=== PATIENT | female | born 1980 | race Caucasian/White ===

== ENCOUNTER 2022-11-22 19:26 | Emergency (ER) | payer OTHER, SELFPAY ==
[2022-11-22 19:36] VITALS: BP 147/85; PULSE 65; O2SAT 98; BMI 29.5
--- NOTE | 2022-11-22 20:02 | ECG_ITS ---
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
--- NOTE | 2022-11-22 20:02 | XR_ITS ---
The [address] [address] Patient Name: SERGIO BERNARDO MRN: [id number] date: 1980 Sex: F Assigned Patient Location: ER Current Patient Location: ER Accession/Order Number: [id number] Exam Date: 11/22/2022 20:25 Report Date: 11/22/2022 20:51 At the request of: ANA PHAM Procedure: XR chest 1V EXAMINATION: XR chest 1V HISTORY: Chest pain COMPARISON: None. TECHNIQUE: Portable chest FINDINGS: The lung parenchyma is free of consolidation or infiltrate. No pneumothorax or pleural effusion. Left-sided cardiac pacemaker. The cardiac, mediastinal and hilar contours are normal. The visualized osseous structures exhibit no gross abnormality. IMPRESSION: No acute cardiopulmonary abnormality. Electronically authenticated by: ROGE HERZOG Date: 11/22/2022 20:51
--- NOTE | 2022-11-22 20:04 | ED_ITS ---
Documented by User: MONIKA Squires 11/22/22 21:00 HPI - General Adult General Chief complaint: Chest Pain Time Seen by Provider: 11/22/22 19:55 Source: patient Mode of arrival: walk-in Limitations: no limitations History of Present Illness HPI narrative: patient is a 42-year-old female with history of cardiomyopathy and pacemaker placement. 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 Patient states she has had several pacemakers with the most recent being changed on September 21. Patient states last night aroound 10 PM she felt a vibrating sensation from her pacemaker, happened again this morning at 10 AM and again at noon or 1 PM. Patient states she has felt fine during this time with no shortness of breath or chest pain or discomfort. This afternoon patient states she noticed a mild ache in her chest and decided to come in and get checked out but reports no significant changes with her ADLs. Patient sees Dr. Shin [facility]. States she had this happen once before with a bad lead connection. Related Data Home Medications Medication Instructions Recorded Confirmed alprazolam 1 mg tablet 1 mg PO .q6 PRN anxiety 11/22/22 11/22/22 amiodarone 100 mg tablet 100 mg PO DAILY 11/22/22 11/22/22 amitriptyline 25 mg tablet 25 mg PO BEDTIME 11/22/22 11/22/22 aspirin 81 mg tablet,delayed 81 mg PO DAILY 11/22/22 11/22/22 release (Adult Aspirin Regimen) atorvastatin 80 mg tablet 80 mg PO DAILY 11/22/22 11/22/22 carvedilol 6.25 mg tablet 6.25 mg PO Q12H 11/22/22 11/22/22 citalopram 20 mg tablet 20 mg PO DAILY 11/22/22 11/22/22 fluticasone propionate 50 intranasal 11/22/22 mcg/actuation nasal spray,suspension furosemide 20 mg tablet 20 mg PO DAILY 11/22/22 11/22/22 gabapentin 300 mg capsule 300 mg PO Q8H 11/22/22 11/22/22 losartan 25 mg tablet 25 mg PO DAILY 11/22/22 11/22/22 olanzapine 5 mg tablet 5 mg PO DAILY 11/22/22 11/22/22 pantoprazole 40 mg tablet,delayed 40 mg PO DAILY 11/22/22 11/22/22 release spironolactone 25 mg tablet 12.5 mg PO DAILY 11/22/22 11/22/22 topiramate 50 mg tablet 50 mg PO Q12H 11/22/22 11/22/22 Allergies Allergy/AdvReac Type Severity Reaction Status Date / Time amoxicillin Allergy Mild Rash Verified 11/22/22 19:49 cefoxitin Allergy Mild Rash Verified 11/22/22 19:49 Sulfa (Sulfonamide Allergy Mild Rash Verified 11/22/22 19:49 Antibiotics) vancomycin Allergy Unknown Verified 11/22/22 19:49 MADI Inhibitors AdvReac Mild Cough Verified 11/22/22 19:49 lisinopril AdvReac Mild Cough Verified 11/22/22 19:49 sulfamethoxazole AdvReac Mild rash Verified 11/22/22 19:49 [From Sulfamethoxazole-Trimethoprim] trimethoprim AdvReac Mild rash Verified 11/22/22 19:49 [From Sulfamethoxazole-Trimethoprim] Review of Systems ROS Constitutional Denies: fever or chills Eyes Denies: change in vision Ears, nose, mouth, and throat Denies: throat pain Cardiovascular Reports: chest pain (ache); Denies: palpitations Respiratory Denies: shortness of breath, cough, wheezing or chest congestion Gastrointestinal Denies: abdominal pain, nausea or vomiting Genitourinary Denies: painful urination or urinary frequency Musculoskeletal Denies: back pain, neck pain, extremity pain, extremity swelling or joint pain Integumentary/Breast Denies: rash or itching Neurological Denies: headache, numbness in extremities or weakness in extremities Psychiatric Denies: anxiety, mood swings or panic attacks Endocrine Denies: excessive urination Hematologic/Lymphatic Denies: easy bruising Allergic/Immunologic Denies: hives, throat swelling or tongue swelling PFSH PFSH Social History Smoking status: Current every day smoker Exam Narrative Exam Narrative: Nurses notes and vital signs reviewed and patient is not hypoxic. General: The patient appears well and in no apparent distress. Patient is resting comfortably on cart. Skin: Warm, dry, no pallor noted. Head: Normocephalic, atraumatic Neck: Supple, trachea mid-line, no tenderness, no lymphadenopathy Eye: Pupils are equal, round and reactive to light, EOMI Ears, Nose, Mouth, and Throat: TM are clear, normal light reflex, oral mucosa is moist, no posterior oropharynx erythema or hypertrophy, uvula is mid-line Cardiovascular: Regular Rate and Rhythm Respiratory: Patient is in no distress, no accessory muscle use, lungs are clear to auscultation, no wheezing, rales or rhonchi. Chest Wall: no tenderness Back: non-tender, no CVA tenderness Musculoskeletal: normal ROM, no tenderness, no swelling GI: Normal bowel sounds, no tenderness to palpation, no masses appreciated. No rebound, guarding, or rigidity noted. Neurological: A&O x4 Psychiatric: Cooperative Constitutional Vital Signs - 24 hr 11/22/22 19:36 11/22/22 20:24 11/22/22 21:21 Pulse Rate [Monitor] 65 58 L Respiratory Rate 18 Blood Pressure [Right Arm] 147/85 H 136/69 H Pulse Oximetry 98 96 95 Oxygen Delivery Method Room Air Room Air Room Air Course Vital Signs Vital signs: Vital Signs Pulse Rate 65 11/22/22 19:36 Blood Pressure 147/85 H 11/22/22 19:36 Pulse Oximetry 98 11/22/22 19:36 Oxygen Delivery Method Room Air 11/22/22 19:36 Pulse Rate 58 L 11/22/22 21:21 Respiratory Rate 18 11/22/22 21:21 Blood Pressure 136/69 H 11/22/22 21:21 Pulse Oximetry 95 11/22/22 21:21 Oxygen Delivery Method Room Air 11/22/22 21:21 Medical Decision Making MDM Narrative Medical decision making narrative: EKG shows paced rhythm [address] [place] device been activated to investigate patient's pacemaker, will check baseline labs and troponin given her complaint of ache, but patient admits she is mostly concerned of why her pacemaker is vibrating frequently....recently Changed September 21 of this year. spoke with Blake mo [place] at 8:50 PM.we discussed the patient's symptoms and presentation, concerns. Advised that he was going to contact the patient's medication administration professional and then phone us back with information Medical Records Medical records narrative: reviewed wrap up overview from interrogation today 11/22/2022 at 7:54 PM. Notes a patient notify her triggered on November 21 at 10:10 PM for RV oversensing. Lab Data Labs: Lab Results 11/22/22 Range/Units 20:00 WBC 4.1 (4.0-11.0) 10^3/uL RBC 4.29 (4.20-5.40) 10^6/uL Hgb 13.1 (12.0-16.0) g/dL Hct 37.1 (36.0-48.0) % MCV 86.5 (81.0-99.0) fL MCH 30.5 (26.7-34.0) pg MCHC 35.3 H (29.9-35.2) g/dL RDW 13.2 (11.0-15.0) % Plt Count 180 (150-450) 10^3/uL MPV 10.6 (9.5-13.5) fL Neut % (Auto) 65.7 (43.0-75.0) % Lymph % (Auto) 21.7 (20.5-60.0) % Band[place] % (Auto) 7.9 (1.7-12.0) % Eos % (Auto) 3.0 (0.9-7.0) % Baso % (Auto) 1.0 (0.2-2.0) % Neut # (Auto) 2.7 (1.4-6.5) 10^3/uL Lymph # (Auto) 0.9 L (1.2-3.8) 10^3/uL [place] # (Auto) 0.3 (0.3-0.8) 10^3/uL Eos # (Auto) 0.1 (0.0-0.7) 10^3/uL Baso # (Auto) 0.0 (0.0-0.1) 10^3/uL Sodium 137 (136-145) mmol/L Potassium 3.4 L (3.5-5.1) mmol/L Chloride 103 (98-107) mmol/L Carbon Dioxide 26.2 (21.0-32.0) mmol/L Anion Gap 11.2 BUN 7.0 (7.0-18.0) mg/dL Creatinine 0.87 (0.55-1.02) mg/dL Est GFR ( Amer) >60 (>=60) Est GFR (Non-Af Amer) >60 (>=60) BUN/Creatinine Ratio 8.0 Glucose 108 H (74-106) mg/dL Calcium 8.7 (8.5-10.1) mg/dL Troponin I High Sens 18.6 (4.0-51.3) pg/mL Discharge Plan Discharge Chief Complaint: Chest Pain Clinical Impression: Pacemaker lead malfunction Prescriptions / Home Meds: No Action citalopram 20 mg tablet 20 mg PO DAILY olanzapine 5 mg tablet 5 mg PO DAILY topiramate 50 mg tablet 50 mg PO Q12H fluticasone propionate 50 mcg/actuation spray,suspension INTRANASAL atorvastatin 80 mg tablet 80 mg PO DAILY amitriptyline 25 mg tablet 25 mg PO BEDTIME amiodarone 100 mg tablet 100 mg PO DAILY gabapentin 300 mg capsule 300 mg PO Q8H furosemide 20 mg tablet 20 mg PO DAILY alprazolam 1 mg tablet 1 mg PO .q6 PRN (Reason: anxiety) aspirin [Adult Aspirin Regimen] 81 mg tablet,delayed release (DR/EC) 81 mg PO DAILY carvedilol 6.25 mg tablet 6.25 mg PO Q12H losartan 25 mg tablet 25 mg PO DAILY pantoprazole 40 mg tablet,delayed release (DR/EC) 40 mg PO DAILY spironolactone 25 mg tablet 12.5 mg PO DAILY Instructions: Pacemaker (DC) Stand Alone Forms: Portal Instructions Referrals: Rock Robertson MD [Primary Care Provider] - 1 week Follow Up Appointments: Call Dr Radford office tomorrow as discussed to arrange for procedure involving your pacemaker Procedures ED Procedure Instructions Procedures Procedures: Procedure: XR chest 1V EXAMINATION: XR chest 1V HISTORY: Chest pain COMPARISON: None. TECHNIQUE: Portable chest FINDINGS: The lung parenchyma is free of consolidation or infiltrate. No pneumothorax or pleural effusion. Left-sided cardiac pacemaker. The cardiac, mediastinal and hilar contours are normal. The visualized osseous structures exhibit no gross abnormality. IMPRESSION: No acute cardiopulmonary abnormality. Electronically authenticated by: ROGE HERZOG Date: 11/22/2022 20:51 Documented by User: Saulo Calderon MD 11/22/22 21:42 HPI - General Adult General Chief complaint: Chest Pain Time Seen by Provider: 11/22/22 19:55 Related Data Home Medications Medication Instructions Recorded Confirmed alprazolam 1 mg tablet 1 mg PO .q6 PRN anxiety 11/22/22 11/22/22 amiodarone 100 mg tablet 100 mg PO DAILY 11/22/22 11/22/22 amitriptyline 25 mg tablet 25 mg PO BEDTIME 11/22/22 11/22/22 aspirin 81 mg tablet,delayed 81 mg PO DAILY 11/22/22 11/22/22 release (Adult Aspirin Regimen) atorvastatin 80 mg tablet 80 mg PO DAILY 11/22/22 11/22/22 carvedilol 6.25 mg tablet 6.25 mg PO Q12H 11/22/22 11/22/22 citalopram 20 mg tablet 20 mg PO DAILY 11/22/22 11/22/22 fluticasone propionate 50 intranasal 11/22/22 mcg/actuation nasal spray,suspension furosemide 20 mg tablet 20 mg PO DAILY 11/22/22 11/22/22 gabapentin 300 mg capsule 300 mg PO Q8H 11/22/22 11/22/22 losartan 25 mg tablet 25 mg PO DAILY 11/22/22 11/22/22 olanzapine 5 mg tablet 5 mg PO DAILY 11/22/22 11/22/22 pantoprazole 40 mg tablet,delayed 40 mg PO DAILY 11/22/22 11/22/22 release spironolactone 25 mg tablet 12.5 mg PO DAILY 11/22/22 11/22/22 topiramate 50 mg tablet 50 mg PO Q12H 11/22/22 11/22/22 Allergies Allergy/AdvReac Type Severity Reaction Status Date / Time amoxicillin Allergy Mild Rash Verified 11/22/22 19:49 cefoxitin Allergy Mild Rash Verified 11/22/22 19:49 Sulfa (Sulfonamide Allergy Mild Rash Verified 11/22/22 19:49 Antibiotics) vancomycin Allergy Unknown Verified 11/22/22 19:49 MADI Inhibitors AdvReac Mild Cough Verified 11/22/22 19:49 lisinopril AdvReac Mild Cough Verified 11/22/22 19:49 sulfamethoxazole AdvReac Mild rash Verified 11/22/22 19:49 [From Sulfamethoxazole-Trimethoprim] trimethoprim AdvReac Mild rash Verified 11/22/22 19:49 [From Sulfamethoxazole-Trimethoprim] PFSH PFSH Social History Smoking status: Current every day smoker Exam Constitutional Vital Signs - 24 hr 11/22/22 19:36 11/22/22 20:24 11/22/22 21:21 Pulse Rate [Monitor] 65 58 L Respiratory Rate 18 Blood Pressure [Right Arm] 147/85 H 136/69 H Pulse Oximetry 98 96 95 Oxygen Delivery Method Room Air Room Air Room Air Course Vital Signs Vital signs: Vital Signs Pulse Rate 65 11/22/22 19:36 Blood Pressure 147/85 H 11/22/22 19:36 Pulse Oximetry 98 11/22/22 19:36 Oxygen Delivery Method Room Air 11/22/22 19:36 Pulse Rate 58 L 11/22/22 21:21 Respiratory Rate 18 11/22/22 21:21 Blood Pressure 136/69 H 11/22/22 21:21 Pulse Oximetry 95 11/22/22 21:21 Oxygen Delivery Method Room Air 11/22/22 21:21 Medical Decision Making Lab Data Lab results narrative: Spoke to medication administration professional Dr Radford and he feels the patient can be hospitalized tonight for procedure on her pacemaker wire tomorrow or she can go home and he will make arrangements tomorrow for the procedure. Discussed wit the patient and she prefers to go home and proceed with treatment tomorrow. She does not want to be hospitalized tonight Labs: Lab Results 11/22/22 Range/Units 20:00 WBC 4.1 (4.0-11.0) 10^3/uL RBC 4.29 (4.20-5.40) 10^6/uL Hgb 13.1 (12.0-16.0) g/dL Hct 37.1 (36.0-48.0) % MCV 86.5 (81.0-99.0) fL MCH 30.5 (26.7-34.0) pg MCHC 35.3 H (29.9-35.2) g/dL RDW 13.2 (11.0-15.0) % Plt Count 180 (150-450) 10^3/uL MPV 10.6 (9.5-13.5) fL Neut % (Auto) 65.7 (43.0-75.0) % Lymph % (Auto) 21.7 (20.5-60.0) % Band[place] % (Auto) 7.9 (1.7-12.0) % Eos % (Auto) 3.0 (0.9-7.0) % Baso % (Auto) 1.0 (0.2-2.0) % Neut # (Auto) 2.7 (1.4-6.5) 10^3/uL Lymph # (Auto) 0.9 L (1.2-3.8) 10^3/uL [place] # (Auto) 0.3 (0.3-0.8) 10^3/uL Eos # (Auto) 0.1 (0.0-0.7) 10^3/uL Baso # (Auto) 0.0 (0.0-0.1) 10^3/uL Sodium 137 (136-145) mmol/L Potassium 3.4 L (3.5-5.1) mmol/L Chloride 103 (98-107) mmol/L Carbon Dioxide 26.2 (21.0-32.0) mmol/L Anion Gap 11.2 BUN 7.0 (7.0-18.0) mg/dL Creatinine 0.87 (0.55-1.02) mg/dL Est GFR ( Amer) >60 (>=60) Est GFR (Non-Af Amer) >60 (>=60) BUN/Creatinine Ratio 8.0 Glucose 108 H (74-106) mg/dL Calcium 8.7 (8.5-10.1) mg/dL Troponin I High Sens 18.6 (4.0-51.3) pg/mL Discharge Plan Discharge Chief Complaint: Chest Pain Clinical Impression: Pacemaker lead malfunction Prescriptions / Home Meds: No Action citalopram 20 mg tablet 20 mg PO DAILY olanzapine 5 mg tablet 5 mg PO DAILY topiramate 50 mg tablet 50 mg PO Q12H fluticasone propionate 50 mcg/actuation spray,suspension INTRANASAL atorvastatin 80 mg tablet 80 mg PO DAILY amitriptyline 25 mg tablet 25 mg PO BEDTIME amiodarone 100 mg tablet 100 mg PO DAILY gabapentin 300 mg capsule 300 mg PO Q8H furosemide 20 mg tablet 20 mg PO DAILY alprazolam 1 mg tablet 1 mg PO .q6 PRN (Reason: anxiety) aspirin [Adult Aspirin Regimen] 81 mg tablet,delayed release (DR/EC) 81 mg PO DAILY carvedilol 6.25 mg tablet 6.25 mg PO Q12H losartan 25 mg tablet 25 mg PO DAILY pantoprazole 40 mg tablet,delayed release (DR/EC) 40 mg PO DAILY spironolactone 25 mg tablet 12.5 mg PO DAILY Instructions: Pacemaker (DC) Stand Alone Forms: Portal Instructions Referrals: Rock Robertson MD [Primary Care Provider] - 1 week Follow Up Appointments: Call Dr Radford office tomorrow as discussed to arrange for procedure involving your pacemaker
[2022-11-22 20:13] VITALS: PULSE 66
--- NOTE | 2022-11-22 20:15 | PC.NURSE ---
Richar goss a pace maker defibrillator placed in September. Last night felt it vibrate and today again this time with some chest pressure
[2022-11-22 20:21] LABS: Eosinophils Absolute Auto 0.1 10^3/uL (0.0-0.7); Hematocrit 37.1 % (36.0-48.0); Hemoglobin 13.1 g/dL (12.0-16.0); Immature Granulocytes Abs Auto 0.03 10^3/uL (0.00-0.03); Immature Granulocytes Pct Auto 0.7 % (0.0-0.5); Lymphocytes Absolute Auto 0.9 10^3/uL (1.2-3.8); Lymphocytes Percent Auto 21.7 % (20.5-60.0); Mean Corpuscular HGB Conc 35.3 g/dL (29.9-35.2); Mean Corpuscular Hemoglobin 30.5 pg (26.7-34.0); Mean Corpuscular Volume 86.5 fL (81.0-99.0); Mean Platelet Volume 10.6 fL (9.5-13.5); Monocytes Absolute Auto 0.3 10^3/uL (0.3-0.8); Monocytes Percent Auto 7.9 % (1.7-12.0); Neutrophils Absolute Auto 2.7 10^3/uL (1.4-6.5); Neutrophils Percent Auto 65.7 % (43.0-75.0); Platelet Count 180 10^3/uL (150-450); Red Blood Count 4.29 10^6/uL (4.20-5.40); Red Cell Distribution Width 13.2 % (11.0-15.0); White Blood Count 4.1 10^3/uL (4.0-11.0)
[2022-11-22 20:24] VITALS: O2SAT 96
[2022-11-22 20:37] LABS: Anion Gap 11.2; Calcium 8.7 mg/dL (8.5-10.1); Carbon Dioxide 26.2 mmol/L (21.0-32.0); Chloride 103 mmol/L (98-107); Estimated GFR (African America >60 (>=60); Estimated GFR (Non-African Ame >60 (>=60); Glucose 108 mg/dL (74-106); Potassium 3.4 mmol/L (3.5-5.1); Sodium 137 mmol/L (136-145); Troponin I High Sensitivity 18.6 pg/mL (4.0-51.3)
[2022-11-22 21:21] VITALS: BP 136/69; PULSE 58; RESP 18; O2SAT 95
[2022-11-22 21:58] VITALS: BP 112/73; PULSE 60; RESP 16; O2SAT 97
== END 2022-11-22 21:57 | disposition home or self-care (01) ==
PROVIDERS: Personal Emergency Response Attendant; Emergency Provider Internal Medicine; PCP Family Medicine
DX: T82.119A Breakdown (mechanical) of unspecified cardiac electronic device, initial encounter (principal); I42.9 Cardiomyopathy, unspecified; Z79.82 Long term (current) use of aspirin; Z79.899 Other long term (current) drug therapy; F17.210 Nicotine dependence, cigarettes, uncomplicated
CPT/HCPCS: 36415; 71045; 80048; 84484; 85025; 93005; 99285

== ENCOUNTER 2022-11-24 12:45 | Emergency (ER) | payer OTHER, SELFPAY ==
[2022-11-24] VITALS (8 sets, daily range): BP systolic 103–174; BP diastolic 65–88; PULSE 60–78; RESP 16–26; TEMP 36.8; O2SAT 97; BMI 29.5
--- NOTE | 2022-11-24 12:55 | ECG_ITS ---
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
--- NOTE | 2022-11-24 12:57 | ECG_ITS ---
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
--- NOTE | 2022-11-24 13:22 | ED_ITS ---
HPI - General Adult General Chief complaint: Chest Pain Stated complaint: CHEST PAIN Time Seen by Provider: 11/24/22 13:09 Source: patient Mode of arrival: walk-in Limitations: no limitations History of Present Illness HPI narrative: this patient was here recently and was told to follow-up with her administrative project coordinator in [facility]. 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 When she was very young she had severe cardiomyopathy and has done pretty well. However her administrative project coordinator Dr. Hendrickson in [place] said that the lead for her defibrillator is broken and must be replaced. He would like her have that done at the [facility]. He has placed a referral but the patient has not heard from anyone at the [facility]. She really isn't having any chest pain or shortness of breath or medical symptomatology is just that she is not heard from anyone in [place] or [place] as far as making this TAKEN care of. She states her last ejection fraction is approximately forty-three percent. She states that she has never had a de fibrillation from this device.this document has been composed with a new electronic medical record and dried in voice recognition system. This document may not fully and accurately reflects the entirety of the patient encounter Related Data Home Medications Medication Instructions Recorded Confirmed alprazolam 1 mg tablet 1 mg PO .q6 PRN anxiety 11/22/22 11/24/22 amiodarone 100 mg tablet 100 mg PO DAILY 11/22/22 11/24/22 amitriptyline 25 mg tablet 25 mg PO BEDTIME 11/22/22 11/24/22 aspirin 81 mg tablet,delayed 81 mg PO DAILY 11/22/22 11/24/22 release (Adult Aspirin Regimen) atorvastatin 80 mg tablet 80 mg PO DAILY 11/22/22 11/24/22 carvedilol 6.25 mg tablet 6.25 mg PO Q12H 11/22/22 11/24/22 citalopram 20 mg tablet 20 mg PO DAILY 11/22/22 11/24/22 fluticasone propionate 50 1 spray intranasal Q12H 11/22/22 11/24/22 mcg/actuation nasal spray,suspension furosemide 20 mg tablet 20 mg PO DAILY 11/22/22 11/24/22 gabapentin 300 mg capsule 300 mg PO Q8H 11/22/22 11/24/22 losartan 25 mg tablet 25 mg PO DAILY 11/22/22 11/24/22 olanzapine 5 mg tablet 5 mg PO DAILY 11/22/22 11/24/22 pantoprazole 40 mg tablet,delayed 40 mg PO DAILY 11/22/22 11/24/22 release spironolactone 25 mg tablet 12.5 mg PO DAILY 11/22/22 11/24/22 topiramate 50 mg tablet 50 mg PO Q12H 11/22/22 11/24/22 wolahzldjz-vtmgsldgkdxop-akalwcqy 1 tab PO Q6H PRN pain 11/24/22 11/24/22 50 mg-325 mg-40 mg tablet Allergies Allergy/AdvReac Type Severity Reaction Status Date / Time amoxicillin Allergy Mild Rash Verified 11/22/22 19:49 cefoxitin Allergy Mild Rash Verified 11/22/22 19:49 Sulfa (Sulfonamide Allergy Mild Rash Verified 11/22/22 19:49 Antibiotics) vancomycin Allergy Unknown Verified 11/22/22 19:49 MADI Inhibitors AdvReac Mild Cough Verified 11/22/22 19:49 lisinopril AdvReac Mild Cough Verified 11/22/22 19:49 sulfamethoxazole AdvReac Mild rash Verified 11/22/22 19:49 [From Sulfamethoxazole-Trimethoprim] trimethoprim AdvReac Mild rash Verified 11/22/22 19:49 [From Sulfamethoxazole-Trimethoprim] [facility] Social History Smoking status: Current every day smoker Exam Narrative Exam Narrative: problem focus examination. Her vital signs are noted below are stable. Twelve- lead EKG is normal. I reviewed her laboratory testing from her previous recent Emergency Room visits to this facility. She does not appear ill basically she just trying to figure out which doctor to go to and when. Constitutional Vital Signs - 24 hr 11/24/22 12:51 11/24/22 12:55 11/24/22 12:56 Temperature 98.2 F Pulse Rate 76 74 Pulse Rate [Monitor] 78 Respiratory Rate 18 16 23 Blood Pressure Blood Pressure [Right Arm] 174/88 H Pulse Oximetry 97 Oxygen Delivery Method Room Air 11/24/22 12:57 11/24/22 13:00 11/24/22 13:15 Temperature Pulse Rate 73 67 63 Pulse Rate [Monitor] Respiratory Rate 18 26 H 20 Blood Pressure 110/72 109/65 104/67 Blood Pressure [Right Arm] Pulse Oximetry Oxygen Delivery Method 11/24/22 13:30 11/24/22 13:45 Temperature Pulse Rate 60 60 Pulse Rate [Monitor] Respiratory Rate 21 18 Blood Pressure 105/66 103/67 Blood Pressure [Right Arm] Pulse Oximetry Oxygen Delivery Method Common normals: no apparent distress Respiratory Common normals: normal respiratory effort and no retractions Course Vital Signs Vital signs: Vital Signs Temperature 98.2 F 11/24/22 12:51 Pulse Rate 78 11/24/22 12:51 Respiratory Rate 18 11/24/22 12:51 Blood Pressure 174/88 H 11/24/22 12:51 Pulse Oximetry 97 11/24/22 12:51 Oxygen Delivery Method Room Air 11/24/22 12:51 Temperature 98.2 F 11/24/22 12:51 Pulse Rate 60 11/24/22 13:45 Respiratory Rate 18 11/24/22 13:45 Blood Pressure 103/67 11/24/22 13:45 Pulse Oximetry 97 11/24/22 12:51 Oxygen Delivery Method Room Air 11/24/22 12:51 Medical Decision Making MDM Narrative Medical decision making narrative: patient remained on the monitor here for cardiac telemetry throughout her duration. We tried to contact her administrative project coordinator [facility] to find out who is to see her at the [facility]. Eventually we were able to track and information down, we contacted administrative project coordinator in [place] they have a scheduled date and time for her to see that physician. He do not believe there is emergency medical condition at this time that requires immediate transfer to that facility. This information was shared with the patient. Discharge Plan Discharge Chief Complaint: Chest Pain Clinical Impression: Pacemaker lead malfunction Patient Disposition: Home, Self-Care Time of Disposition Decision: 14:14 Prescriptions / Home Meds: No Action citalopram 20 mg tablet 20 mg PO DAILY olanzapine 5 mg tablet 5 mg PO DAILY topiramate 50 mg tablet 50 mg PO Q12H fluticasone propionate 50 mcg/actuation spray,suspension 1 spray INTRANASAL Q12H atorvastatin 80 mg tablet 80 mg PO DAILY amitriptyline 25 mg tablet 25 mg PO BEDTIME amiodarone 100 mg tablet 100 mg PO DAILY gabapentin 300 mg capsule 300 mg PO Q8H furosemide 20 mg tablet 20 mg PO DAILY alprazolam 1 mg tablet 1 mg PO .q6 PRN (Reason: anxiety) aspirin [Adult Aspirin Regimen] 81 mg tablet,delayed release (DR/EC) 81 mg PO DAILY carvedilol 6.25 mg tablet 6.25 mg PO Q12H losartan 25 mg tablet 25 mg PO DAILY pantoprazole 40 mg tablet,delayed release (DR/EC) 40 mg PO DAILY spironolactone 25 mg tablet 12.5 mg PO DAILY [id number]-[id number] 50-325-40 mg tablet 1 tab PO Q6H PRN (Reason: pain) Instructions: Pacemaker (DC) Additional Instructions: Appointment scheduled on December [address] Ch[facility]vez at [facility]. [phone] option 4 Stand Alone Forms: Portal Instructions Referrals: Rock Robertson MD [Primary Care Provider] - 1 week Discharge Date/Time: 11/24/22 14:25
== END 2022-11-24 14:25 | disposition home or self-care (01) ==
PROVIDERS: Emergency Provider Emergency Medicine Emergency Medical Services; PCP Family Medicine
DX: R07.9 Chest pain, unspecified (principal); Z95.810 Presence of automatic (implantable) cardiac defibrillator; Z79.82 Long term (current) use of aspirin; Z79.899 Other long term (current) drug therapy
CPT/HCPCS: 93005; 99283

== ENCOUNTER 2022-12-05 07:12 | Emergency (ER) | payer OTHER, SELFPAY ==
[2022-12-05 07:18] VITALS: BP 130/74; PULSE 73; RESP 20; TEMP 36.8; O2SAT 99; BMI 29.5
--- NOTE | 2022-12-05 07:19 | ECG_ITS ---
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
--- NOTE | 2022-12-05 07:19 | XR_ITS ---
The [address] [address] Patient Name: SERGIO BERNARDO MRN: [id number] date: 1980 Sex: F Assigned Patient Location: ER Current Patient Location: ER Accession/Order Number: [id number] Exam Date: 12/05/2022 07:51 Report Date: 12/05/2022 08:12 At the request of: FAZAL PARKER Procedure: XR chest 1V XR chest 1V CLINICAL: Pain. Defibrillator malfunction COMPARISON: No prior studies are available. TECHNIQUE: Single AP view of the chest. FINDINGS: Heart size is upper normal for technique. Multi lead left subclavian pacing device/defibrillator is present with leads grossly intact and stable in appearance. No airspace consolidation, discernible pneumothorax or pleural effusion is seen. Osseous structures appear intact. IMPRESSION: No acute cardiac or pulmonary findings. Electronically authenticated by: ROGE RITCHIE Date: 12/05/2022 08:12
--- NOTE | 2022-12-05 07:30 | ED_ITS ---
HPI - Chest Pain General Chief Complaint: Chest Pain Stated Complaint: DFIB WENT OFF Time Seen by Provider: 12/05/22 07:19 Source: patient Source comment: patient Mode of arrival: Wheelchair Limitations: no limitations History of Present Illness HPI narrative: patient here as she was at work today and felt fine prior to arrival. However her defibrillator shocked her once. She feels fine at this time. This is the 1st event with this current defibrillator at that she's received a shock. Prior to the event today nothing is differennt she felt great and was at work. Her meds have not changed. She's not been ill. She did not have any palpitations or lightheadedness. 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 MD complaint: Denies chest pain Related Data Home Medications Medication Instructions Recorded Confirmed alprazolam 1 mg tablet 1 mg PO .q6 PRN anxiety 11/22/22 11/24/22 amiodarone 100 mg tablet 100 mg PO DAILY 11/22/22 11/24/22 amitriptyline 25 mg tablet 25 mg PO BEDTIME 11/22/22 11/24/22 aspirin 81 mg tablet,delayed 81 mg PO DAILY 11/22/22 11/24/22 release (Adult Aspirin Regimen) atorvastatin 80 mg tablet 80 mg PO DAILY 11/22/22 11/24/22 carvedilol 6.25 mg tablet 6.25 mg PO Q12H 11/22/22 11/24/22 citalopram 20 mg tablet 20 mg PO DAILY 11/22/22 11/24/22 fluticasone propionate 50 1 spray intranasal Q12H 11/22/22 11/24/22 mcg/actuation nasal spray,suspension furosemide 20 mg tablet 20 mg PO DAILY 11/22/22 11/24/22 gabapentin 300 mg capsule 300 mg PO Q8H 11/22/22 11/24/22 losartan 25 mg tablet 25 mg PO DAILY 11/22/22 11/24/22 olanzapine 5 mg tablet 5 mg PO DAILY 11/22/22 11/24/22 pantoprazole 40 mg tablet,delayed 40 mg PO DAILY 11/22/22 11/24/22 release spironolactone 25 mg tablet 12.5 mg PO DAILY 11/22/22 11/24/22 topiramate 50 mg tablet 50 mg PO Q12H 11/22/22 11/24/22 nhqiuhnznf-wzrxffvvmxtpt-fnfohvzz 1 tab PO Q6H PRN pain 11/24/22 11/24/22 50 mg-325 mg-40 mg tablet Allergies Allergy/AdvReac Type Severity Reaction Status Date / Time amoxicillin Allergy Mild Rash Verified 11/22/22 19:49 cefoxitin Allergy Mild Rash Verified 11/22/22 19:49 Sulfa (Sulfonamide Allergy Mild Rash Verified 11/22/22 19:49 Antibiotics) vancomycin Allergy Unknown Verified 11/22/22 19:49 MADI Inhibitors AdvReac Mild Cough Verified 11/22/22 19:49 lisinopril AdvReac Mild Cough Verified 11/22/22 19:49 sulfamethoxazole AdvReac Mild rash Verified 11/22/22 19:49 [From Sulfamethoxazole-Trimethoprim] trimethoprim AdvReac Mild rash Verified 11/22/22 19:49 [From Sulfamethoxazole-Trimethoprim] [facility] Social History Smoking status: Current every day smoker Exam Narrative Exam Narrative: awake alert pleasant somewhat anxious because this the 1st event. Otherwise vitals as noted below Constitutional Vital Signs - 24 hr 12/05/22 07:18 Temperature 98.2 F Pulse Rate [Monitor] 73 Respiratory Rate 20 Blood Pressure [Right Arm] 130/74 H Pulse Oximetry 99 Oxygen Delivery Method Room Air [facility] Common normals: normocephalic Face and sinus: normal facial exam Chest Common normals: inspection of chest normal Respiratory Common normals: normal respiratory effort Effort & inspection: able to speak in complete sentences Auscultation: clear to auscultation bilaterally Cardio Common normals: no JVD, regular rate and regular rhythm Other: pacemaker seems to be sensing and pacing appropriately 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 EKG Course Vital Signs Vital signs: Vital Signs Temperature 98.2 F 12/05/22 07:18 Pulse Rate 73 12/05/22 07:18 Respiratory Rate 20 12/05/22 07:18 Blood Pressure 130/74 H 12/05/22 07:18 Pulse Oximetry 99 12/05/22 07:18 Oxygen Delivery Method Room Air 12/05/22 07:18 Temperature 98.2 F 12/05/22 07:18 Pulse Rate 73 12/05/22 07:18 Respiratory Rate 20 12/05/22 07:18 Blood Pressure 130/74 H 12/05/22 07:18 Pulse Oximetry 99 12/05/22 07:18 Oxygen Delivery Method Room Air 12/05/22 07:18 MDM - Chest Pain Lab Data Labs: Lab Results 12/05/22 Range/Units 07:28 WBC 4.2 (4.0-11.0) 10^3/uL RBC 4.90 (4.20-5.40) 10^6/uL Hgb 14.9 (12.0-16.0) g/dL Hct 41.8 (36.0-48.0) % MCV 85.3 (81.0-99.0) fL MCH 30.4 (26.7-34.0) pg MCHC 35.6 H (29.9-35.2) g/dL RDW 13.2 (11.0-15.0) % Plt Count 189 (150-450) 10^3/uL MPV 10.4 (9.5-13.5) fL Neut % (Auto) 75.5 H (43.0-75.0) % Lymph % (Auto) 12.9 L (20.5-60.0) % [place] % (Auto) 8.4 (1.7-12.0) % Eos % (Auto) 1.7 (0.9-7.0) % Baso % (Auto) 1.0 (0.2-2.0) % Neut # (Auto) 3.2 (1.4-6.5) 10^3/uL Lymph # (Auto) 0.5 L (1.2-3.8) 10^3/uL [place] # (Auto) 0.4 (0.3-0.8) 10^3/uL Eos # (Auto) 0.1 (0.0-0.7) 10^3/uL Baso # (Auto) 0.0 (0.0-0.1) 10^3/uL Abs Immat Gran (auto) 0.02 (0.00-0.03) 10^3/uL Imm/Tot Granulo (auto) 0.5 (0.0-0.5) % Sodium 137 (136-145) mmol/L Potassium 4.2 (3.5-5.1) mmol/L Chloride 103 (98-107) mmol/L Carbon Dioxide 25.6 (21.0-32.0) mmol/L Anion Gap 12.6 BUN 7.0 (7.0-18.0) mg/dL Creatinine 0.79 (0.55-1.02) mg/dL Est GFR ( Amer) >60 (>=60) Est GFR (Non-Af Amer) >60 (>=60) BUN/Creatinine Ratio 8.9 Glucose 88 (74-106) mg/dL Calcium 8.8 (8.5-10.1) mg/dL Troponin I High Sens 15.0 (4.0-51.3) pg/mL Discharge Plan Discharge Chief Complaint: Chest Pain Clinical Impression: Pacemaker lead malfunction Patient Disposition: Home, Self-Care Time of Disposition Decision: 10:59 Condition: Good Prescriptions / Home Meds: No Action citalopram 20 mg tablet 20 mg PO DAILY olanzapine 5 mg tablet 5 mg PO DAILY topiramate 50 mg tablet 50 mg PO Q12H fluticasone propionate 50 mcg/actuation spray,suspension 1 spray INTRANASAL Q12H atorvastatin 80 mg tablet 80 mg PO DAILY amitriptyline 25 mg tablet 25 mg PO BEDTIME amiodarone 100 mg tablet 100 mg PO DAILY gabapentin 300 mg capsule 300 mg PO Q8H furosemide 20 mg tablet 20 mg PO DAILY alprazolam 1 mg tablet 1 mg PO .q6 PRN (Reason: anxiety) aspirin [Adult Aspirin Regimen] 81 mg tablet,delayed release (DR/EC) 81 mg PO DAILY carvedilol 6.25 mg tablet 6.25 mg PO Q12H losartan 25 mg tablet 25 mg PO DAILY pantoprazole 40 mg tablet,delayed release (DR/EC) 40 mg PO DAILY spironolactone 25 mg tablet 12.5 mg PO DAILY vrnywynlkl-przatpdiqdacq-gvry 50-325-40 mg tablet 1 tab PO Q6H PRN (Reason: pain) Instructions: Chest Pain (ED), Pacemaker (DC) Stand Alone Forms: Portal Instructions Referrals: Rock Robertson MD [Primary Care Provider] - 1 week Discharge Date/Time: 12/05/22 11:09
--- NOTE | 2022-12-05 07:50 | PC.NURSE ---
Pt has a pacemaker -- has a known faulty lead isn't seeing [facility] cardiology until 12/11. Was at work and got zapped by defibrillator. states she's felt normal previously before the zap
--- NOTE | 2022-12-05 08:01 | PC.NURSE ---
Spoke with rep from she is going to come and deactivate pacer. Recommended putting the magnet on pt's pacer -- placed at this time. Dr Krishnamurthy at bedside. Denies any symptoms at this time
[2022-12-05 08:04] LABS: Eosinophils Absolute Auto 0.1 10^3/uL (0.0-0.7); Eosinophils Percent Auto 1.7 % (0.9-7.0); Hematocrit 41.8 % (36.0-48.0); Hemoglobin 14.9 g/dL (12.0-16.0); Immature Granulocytes Abs Auto 0.02 10^3/uL (0.00-0.03); Immature Granulocytes Pct Auto 0.5 % (0.0-0.5); Lymphocytes Absolute Auto 0.5 10^3/uL (1.2-3.8); Lymphocytes Percent Auto 12.9 % (20.5-60.0); Mean Corpuscular HGB Conc 35.6 g/dL (29.9-35.2); Mean Corpuscular Hemoglobin 30.4 pg (26.7-34.0); Mean Corpuscular Volume 85.3 fL (81.0-99.0); Mean Platelet Volume 10.4 fL (9.5-13.5); Monocytes Absolute Auto 0.4 10^3/uL (0.3-0.8); Monocytes Percent Auto 8.4 % (1.7-12.0); Neutrophils Absolute Auto 3.2 10^3/uL (1.4-6.5); Neutrophils Percent Auto 75.5 % (43.0-75.0); Platelet Count 189 10^3/uL (150-450); Red Cell Distribution Width 13.2 % (11.0-15.0); White Blood Count 4.2 10^3/uL (4.0-11.0)
[2022-12-05 08:24] LABS: Anion Gap 12.6; BUN Creatinine Ratio 8.9; Calcium 8.8 mg/dL (8.5-10.1); Carbon Dioxide 25.6 mmol/L (21.0-32.0); Chloride 103 mmol/L (98-107); Estimated GFR (African America >60 (>=60); Estimated GFR (Non-African Ame >60 (>=60); Glucose 88 mg/dL (74-106); Potassium 4.2 mmol/L (3.5-5.1); Sodium 137 mmol/L (136-145)
== END 2022-12-05 11:09 | disposition home or self-care (01) ==
PROVIDERS: Emergency Provider Emergency Medicine Emergency Medical Services; PCP Family Medicine
DX: T82.198A Other mechanical complication of other cardiac electronic device, initial encounter (principal); F17.210 Nicotine dependence, cigarettes, uncomplicated; Z79.82 Long term (current) use of aspirin; Z79.899 Other long term (current) drug therapy
CPT/HCPCS: 36415; 71045; 80048; 84484; 85025; 93005; 99285

== ENCOUNTER 2023-02-07 05:17 | Emergency (ER) | payer OTHER, SELFPAY ==
[2023-02-07 05:23] VITALS: BP 125/69; PULSE 69; RESP 16; TEMP 36.6; O2SAT 99; BMI 29.3
--- NOTE | 2023-02-07 05:26 | XR_ITS ---
The [address] [address] Patient Name: SERGIO BERNARDO MRN: [id number] date: 1980 Sex: F Assigned Patient Location: ED.MAIN Current Patient Location: ER Accession/Order Number: [id number] Exam Date: 02/07/2023 05:45 Report Date: 02/07/2023 06:43 At the request of: ELDER SILVA Procedure: XR ankle RT min 3V Exam: Radiographs: XR ankle RT min 3V Reason for exam: pain, swelling Comparison: None XR/XR ankle RT min 3V IMPRESSION: Right ankle soft tissue swelling. Right ankle is otherwise unremarkable. Electronically authenticated by: DANA RODRÍGUEZ Date: 02/07/2023 06:43
--- NOTE | 2023-02-07 05:26 | ED.GENADUL1 ---
HPI - General Adult General Chief complaint: Extremity Injury, Lower Stated complaint: lower extremity injury Time Seen by Provider: 02/07/23 05:26 History of Present Illness HPI narrative: pt presents to emergency department complaining of right ankle pain. Patient states she got up this morning, her foot down and as she started to bear weight her ankle twisted she heard a pop and then she noticed swelling. She states she is having pain with weightbearing since then. She denies any previous injury to the ankle. She denies any paresthesias, or weakness. She has not taking anything at home for the pain. Denies any other injury. Related Data Home Medications Medication Instructions Recorded Confirmed alprazolam 1 mg tablet 1 mg PO .q6 PRN anxiety 11/22/22 11/24/22 amiodarone 100 mg tablet 100 mg PO DAILY 11/22/22 11/24/22 amitriptyline 25 mg tablet 25 mg PO BEDTIME 11/22/22 11/24/22 aspirin 81 mg tablet,delayed 81 mg PO DAILY 11/22/22 11/24/22 release (Adult Aspirin Regimen) atorvastatin 80 mg tablet 80 mg PO DAILY 11/22/22 11/24/22 carvedilol 6.25 mg tablet 6.25 mg PO Q12H 11/22/22 11/24/22 citalopram 20 mg tablet 20 mg PO DAILY 11/22/22 11/24/22 fluticasone propionate 50 1 spray intranasal Q12H 11/22/22 11/24/22 mcg/actuation nasal spray,suspension furosemide 20 mg tablet 20 mg PO DAILY 11/22/22 11/24/22 gabapentin 300 mg capsule 300 mg PO Q8H 11/22/22 11/24/22 losartan 25 mg tablet 25 mg PO DAILY 11/22/22 11/24/22 olanzapine 5 mg tablet 5 mg PO DAILY 11/22/22 11/24/22 pantoprazole 40 mg tablet,delayed 40 mg PO DAILY 11/22/22 11/24/22 release spironolactone 25 mg tablet 12.5 mg PO DAILY 11/22/22 11/24/22 topiramate 50 mg tablet 50 mg PO Q12H 11/22/22 11/24/22 letswemdsq-xtylaokeqrxzo-owsqijxw 1 tab PO Q6H PRN pain 06/06/23 06/06/23 50 mg-325 mg-40 mg tablet Previous Rx's Medication Instructions Recorded ibuprofen 800 mg tablet 800 mg PO Q8H PRN pain #20 tabs 02/07/23 Allergies Allergy/AdvReac Type Severity Reaction Status Date / Time amoxicillin Allergy Mild Rash Verified 02/07/23 05:28 cefoxitin Allergy Mild Rash Verified 02/07/23 05:28 Sulfa (Sulfonamide Allergy Mild Rash Verified 02/07/23 05:28 Antibiotics) vancomycin Allergy Unknown Verified 02/07/23 05:28 FRANCISCO Inhibitors AdvReac Mild Cough Verified 02/07/23 05:28 lisinopril AdvReac Mild Cough Verified 02/07/23 05:28 sulfamethoxazole AdvReac Mild rash Verified 02/07/23 05:28 [From Sulfamethoxazole-Trimethoprim] trimethoprim AdvReac Mild rash Verified 02/07/23 05:28 [From Sulfamethoxazole-Trimethoprim] Review of Systems ROS Status of ROS 10 or more systems reviewed and unremarkable except as noted in history and below [facility] Social History Smoking status: Current every day smoker Exam Narrative Exam Narrative: Nurses notes and vital signs reviewed and patient is not hypoxic. General: Nontoxic, Well-appearing and in no apparent distress. Skin: Warm, dry, no pallor noted. No Rash Head: Normocephalic, atraumatic. Neck: Supple, non-tender. Eye: Pupils are equal, round and EOMI. No scleral icterus. Ears, Nose, Mouth, and Throat: TM clear, no posterior oropharynx erythema or nasal mucosal hypertrophy, uvula is mid-line Oral mucosa is moist Cardiovascular: Regular Rate and Rhythm without murmur, gallop or rub. Respiratory: No accessory muscle use or respiratory distress. Lungs are clear to auscultation, no wheezing, rales or rhonchi Chest Wall: no tenderness Back: No midline thoracic or lumbar vertebral tenderness. No CVA tenderness Musculoskeletal: Right ankle with edema noted anteriorly to the lateral malleolus. There is tenderness to palpation. No ecchymosis, erythema, or warmth. There is no pain at the base of the 5th. DTRs +2, tp+2, capillary refill is brisk. normal ROM, no calf or popliteal tenderness, No lower extremity edema, no calf pain GI: Abdomen is soft, non-distended. Normal bowel sounds. No masses appreciated. No tenderness to palpation. No rebound, guarding, or rigidity noted. Neurological: A&O x4. No cranial nerve dysfunction observed. No truncal ataxia. Moves all extremities. Sensation intact. Psychiatric: Cooperative and interactive. Normal mood and affect. Constitutional Vital Signs, click to edit/add: Last Vital Signs Temp 97.9 F 02/07/23 05:23 Pulse 69 02/07/23 05:23 Resp 16 02/07/23 05:23 BP 125/69 02/07/23 05:23 Pulse Ox 99 02/07/23 05:23 O2 Del Method Room Air 02/07/23 05:23 Course Vital Signs Vital signs: Vital Signs Temperature 97.9 F 02/07/23 05:23 Pulse Rate 69 02/07/23 05:23 Respiratory Rate 16 02/07/23 05:23 Blood Pressure 125/69 02/07/23 05:23 Pulse Oximetry 99 02/07/23 05:23 Oxygen Delivery Method Room Air 02/07/23 05:23 Temperature 97.9 F 02/07/23 05:23 Pulse Rate 69 02/07/23 05:23 Respiratory Rate 16 02/07/23 05:23 Blood Pressure 125/69 02/07/23 05:23 Pulse Oximetry 99 02/07/23 05:23 Oxygen Delivery Method Room Air 02/07/23 05:23 Medical Decision Making MDM Narrative Medical decision making narrative: Patient is given 1 dose of Motrin 800. X-ray was done. All results were discussed with patient. Francisco wrap applied. At this time the patient is without objective evidence of an acute process requiring hospitalization or inpatient management. The patient has remained hemodynamically stable. No additional indication for emergent studies at this time. I answered all questions. Discussed discharge instructions including standard anticipatory guidance and what should prompt a return to the emergency department, including if they get worse are not getting better or develops any new or concerning symptoms. I've given them specific time frame in which to follow-up, and who to follow-up with. The patient demonstrates understanding. Patient is nontoxic and stable for discharge with outpatient follow-up. This note was created with the assistance of a speech recognition program. Although the intention is to generate documents that actually reflects the content of the visit, no guarantees can be provided that every mistake has been identified and corrected by editing. Discharge Plan Discharge Chief Complaint: Extremity Injury, Lower Clinical Impression: Ankle sprain and strain Patient Disposition: Home, Self-Care Time of Disposition Decision: 05:41 Condition: Good Mode of Transportation: Private Vehicle Prescriptions / Home Meds: New ibuprofen 800 mg tablet 800 mg PO Q8H PRN (Reason: pain) Qty: 20 0RF No Action citalopram 20 mg tablet 20 mg PO DAILY olanzapine 5 mg tablet 5 mg PO DAILY topiramate 50 mg tablet 50 mg PO Q12H fluticasone propionate 50 mcg/actuation spray,suspension 1 spray INTRANASAL Q12H atorvastatin 80 mg tablet 80 mg PO DAILY amitriptyline 25 mg tablet 25 mg PO BEDTIME amiodarone 100 mg tablet 100 mg PO DAILY gabapentin 300 mg capsule 300 mg PO Q8H furosemide 20 mg tablet 20 mg PO DAILY alprazolam 1 mg tablet 1 mg PO .q6 PRN (Reason: anxiety) aspirin [Adult Aspirin Regimen] 81 mg tablet,delayed release (DR/EC) 81 mg PO DAILY carvedilol 6.25 mg tablet 6.25 mg PO Q12H losartan 25 mg tablet 25 mg PO DAILY pantoprazole 40 mg tablet,delayed release (DR/EC) 40 mg PO DAILY spironolactone 25 mg tablet 12.5 mg PO DAILY ypommginge-zhmfaxfsnwtfk-jfep 50-325-40 mg tablet 1 tab PO Q6H PRN (Reason: pain) Instructions: Ankle Sprain (ED) Stand Alone Forms: Portal Instructions Referrals: Rock Robertson MD [Primary Care Provider] - 1 week Discharge Date/Time: 02/07/23 06:35
--- NOTE | 2023-02-07 05:32 | PC.NURSE ---
patient states she woke up and tried to step out of bed, states when she stood up and put weight down she felt pop sensation to her right ankle. denies any other injury. denies any previous injury to ankle. swelling observed to outer aspect of right ankle. pulses and sensation remain intact.
[2023-02-07] MEDS: IBUPROFEN 400 MG TABLET 800 MG PO (06:01)
--- NOTE | 2023-02-07 06:44 | PC.NURSE ---
Francisco wrap,ankle stirrup placed. Circ intact prior to and after splinting. Provided with crutches is to follow up as directed.
== END 2023-02-07 06:35 | disposition home or self-care (01) ==
PROVIDERS: Emergency Provider Emergency Medicine; PCP Family Medicine
DX: S93.401A Sprain of unspecified ligament of right ankle, initial encounter (principal); S96.911A Strain of unspecified muscle and tendon at ankle and foot level, right foot, initial encounter; X50.1XXA Overexertion from prolonged static or awkward postures, initial encounter; Z79.82 Long term (current) use of aspirin; Z79.899 Other long term (current) drug therapy; F17.210 Nicotine dependence, cigarettes, uncomplicated
CPT/HCPCS: 73610; 99283

== ENCOUNTER 2023-05-08 09:09 | Emergency (ER) | payer SELFPAY ==
[2023-05-08] VITALS (10 sets, daily range): BP systolic 119–152; BP diastolic 73–95; PULSE 60–75; RESP 16–21; TEMP 36.6; O2SAT 90–100; BMI 29.5
--- NOTE | 2023-05-08 09:16 | ECG_ITS ---
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
--- NOTE | 2023-05-08 09:16 | XR_ITS ---
[address] [address] Patient Name: SERGIO BERNARDO MRN: [id number] date: 1980 Sex: F Assigned Patient Location: ER Current Patient Location: ED.MAIN Accession/Order Number: [id number] Exam Date: 05/08/2023 09:28 Report Date: 05/08/2023 10:05 At the request of: FRITZ CHOI Procedure: XR chest 1V EXAM: XR chest 1V HISTORY: CP COMPARISON: 12/05/2022 FINDINGS/IMPRESSION: 1. Lungs are clear . Left pacemaker/ICD with intact leads. 2. No pneumothorax. No pleural effusion. 3. Heart size and mediastinal contours are normal 4. No acute osseous abnormality. 5. Upper abdominal bowel gas pattern is nonspecific. Electronically authenticated by: TERRY HIGGINBOTHAM Date: 05/08/2023 10:05
--- NOTE | 2023-05-08 09:17 | ED_ITS ---
HPI - Chest Pain General Chief Complaint: Chest Pain Time Seen by Provider: 05/08/23 09:10 Source: patient Mode of arrival: ambulance Limitations: no limitations History of Present Illness HPI narrative: 42-year-old female presents for chest pain. She's had it continuously since 7 PM last night, about fourteen hours. It's on the left side of her chest. No unusual activity or injury. No fever or cough. No right-sided pain and she doesn't complain of radiation to the arm. She has a pacemaker due to dilated cardiomyopathy and the pacemaker was changed out earlier this year. Related Data Home Medications Medication Instructions Recorded Confirmed alprazolam 1 mg tablet 1 mg PO .q6 PRN anxiety 11/22/22 11/24/22 amiodarone 100 mg tablet 100 mg PO DAILY 11/22/22 11/24/22 amitriptyline 25 mg tablet 25 mg PO BEDTIME 11/22/22 11/24/22 aspirin 81 mg tablet,delayed 81 mg PO DAILY 11/22/22 11/24/22 release (Adult Aspirin Regimen) atorvastatin 80 mg tablet 80 mg PO DAILY 11/22/22 11/24/22 carvedilol 6.25 mg tablet 6.25 mg PO Q12H 11/22/22 11/24/22 citalopram 20 mg tablet 20 mg PO DAILY 11/22/22 11/24/22 fluticasone propionate 50 1 spray intranasal Q12H 11/22/22 11/24/22 mcg/actuation nasal spray,suspension furosemide 20 mg tablet 20 mg PO DAILY 11/22/22 11/24/22 gabapentin 300 mg capsule 300 mg PO Q8H 11/22/22 11/24/22 losartan 25 mg tablet 25 mg PO DAILY 11/22/22 11/24/22 olanzapine 5 mg tablet 5 mg PO DAILY 11/22/22 11/24/22 pantoprazole 40 mg tablet,delayed 40 mg PO DAILY 11/22/22 11/24/22 release spironolactone 25 mg tablet 12.5 mg PO DAILY 11/22/22 11/24/22 topiramate 50 mg tablet 50 mg PO Q12H 11/22/22 11/24/22 [id number]-[id number]-[id number] 1 tab PO Q6H PRN pain 11/24/22 11/24/22 50 mg-325 mg-40 mg tablet Previous Rx's Medication Instructions Recorded ibuprofen 800 mg tablet 800 mg PO Q8H PRN pain #20 tabs 02/07/23 Allergies Allergy/AdvReac Type Severity Reaction Status Date / Time amoxicillin Allergy Mild Rash Verified 02/07/23 05:28 cefoxitin Allergy Mild Rash Verified 02/07/23 05:28 Sulfa (Sulfonamide Allergy Mild Rash Verified 02/07/23 05:28 Antibiotics) vancomycin Allergy Unknown Verified 02/07/23 05:28 MADI Inhibitors AdvReac Mild Cough Verified 02/07/23 05:28 lisinopril AdvReac Mild Cough Verified 02/07/23 05:28 sulfamethoxazole AdvReac Mild rash Verified 02/07/23 05:28 [From Sulfamethoxazole-Trimethoprim] trimethoprim AdvReac Mild rash Verified 02/07/23 05:28 [From Sulfamethoxazole-Trimethoprim] Review of Systems ROS Narrative A ten point review of systems is negative except as noted above. PFSH PFSH Social History Smoking status: Current every day smoker Exam Narrative Exam Narrative: Nurses note and vital signs reviewed and patient is not hypoxic. General: The patient appears well and in no apparent distress. Patient is resting comfortably on cart. Skin: Warm, dry, no pallor noted. There is no rash noted. Head: Normocephalic, atraumatic Eye: Normal conjunctiva, no drainage Ears, Nose, Mouth, and Throat: oral mucosa is moist. Nares patent. Cardiovascular: Regular Rate and Rhythm Respiratory: Patient is in no distress, no accessory muscle use, lungs are clear to auscultation, no wheezing, rales or rhonchi Back: non-tender GI: Normal bowel sounds, no tenderness to palpation, no masses appreciated. No rebound, guarding, or rigidity noted. Musculoskeletal: The patient has no evidence of calf tenderness, no pitting edema, symmetrical pulses noted bilaterally Neurological: A&O, normal speech Psychiatric: Cooperative Constitutional Vital Signs, click to edit/add: Last Vital Signs Temp 97.8 F 05/08/23 09:10 Pulse 60 05/08/23 10:20 Resp 21 05/08/23 10:20 BP 119/73 05/08/23 10:16 Pulse Ox 100 05/08/23 10:20 O2 Del Method Room Air 05/08/23 09:10 Course Vital Signs Vital signs: Vital Signs Temperature 97.8 F 05/08/23 09:10 Pulse Rate 62 05/08/23 09:10 Respiratory Rate 18 05/08/23 09:10 Blood Pressure 152/95 H 05/08/23 09:10 Pulse Oximetry 100 05/08/23 09:10 Oxygen Delivery Method Room Air 05/08/23 09:10 Temperature 97.8 F 05/08/23 09:10 Pulse Rate 60 05/08/23 10:20 Respiratory Rate 21 05/08/23 10:20 Blood Pressure 119/73 05/08/23 10:16 Pulse Oximetry 100 05/08/23 10:20 Oxygen Delivery Method Room Air 05/08/23 09:10 MDM - Chest Pain MDM Narrative Medical decision making narrative: her workup including two troponins and CK is negative. she was given IV Toradol and feels improved and she is able to be discharged home. No evidence of acute coronary syndrome or pulmonary embolism. Treatment diagnosis and follow-up were discussed with the patient. Differential Diagnosis Differential diagnosis: Likely pneumothorax, unstable angina pectoris, atypical chest pain, st elevation myocardial infarction, costochondritis, chest pain and other (pulmonary embolism) Lab Data Attestation: I reviewed the patient's lab results. Labs: Lab Results 05/08/23 05/08/23 Range/Units 09:22 10:50 WBC 4.8 (4.0-11.0) 10^3/uL RBC 4.30 (4.20-5.40) 10^6/uL Hgb 13.2 (12.0-16.0) g/dL Hct 37.9 (36.0-48.0) % MCV 88.1 (81.0-99.0) fL MCH 30.7 (26.7-34.0) pg MCHC 34.8 (29.9-35.2) g/dL RDW 12.9 (11.0-15.0) % Plt Count 157 (150-450) 10^3/uL MPV 10.7 (9.5-13.5) fL Neut % (Auto) 72.5 (43.0-75.0) % Lymph % (Auto) 16.9 L (20.5-60.0) % [place] % (Auto) 8.4 (1.7-12.0) % Eos % (Auto) 1.0 (0.9-7.0) % Baso % (Auto) 0.8 (0.2-2.0) % Neut # (Auto) 3.5 (1.4-6.5) 10^3/uL Lymph # (Auto) 0.8 L (1.2-3.8) 10^3/uL [place] # (Auto) 0.4 (0.3-0.8) 10^3/uL Eos # (Auto) 0.1 (0.0-0.7) 10^3/uL Baso # (Auto) 0.0 (0.0-0.1) 10^3/uL Abs Immat Gran (auto) 0.02 (0.00-0.03) 10^3/uL Imm/Tot Granulo (auto) 0.4 (0.0-0.5) % Sodium 139 (136-145) mmol/L Potassium 3.7 (3.5-5.1) mmol/L Chloride 105 (98-107) mmol/L Carbon Dioxide 25.4 (21.0-32.0) mmol/L Anion Gap 12.3 BUN 8.0 (7.0-18.0) mg/dL Creatinine 0.86 (0.55-1.02) mg/dL Est GFR ( Amer) >60 (>=60) Est GFR (Non-Af Amer) >60 (>=60) BUN/Creatinine Ratio 9.3 Glucose 92 (74-106) mg/dL Calcium 8.6 (8.5-10.1) mg/dL Troponin I High Sens 15.1 20.4 (4.0-51.3) pg/mL Imaging Data CT scan - chest: Radiologist's impression: Procedure: CT angio chest EXAM: CT angio chest HISTORY: chest pain, history of pulmonary embolism PROCEDURE: CT angio chest DATE: 05/08/2023 9:08 AM MANAGER CLINICAL INFORMATICS COMPARISONS: 09/24/2022. CLINICAL INDICATION: 42 years Female chest pain, history of pulmonary embolism TECHNIQUE: Axial images were obtained. Coronal and sagittal reformations were created. Multiplanar MIP reconstructions and 3D volume-rendered surface shaded reconstructions were created by the cytotechnologist supervisor to aid in evaluation of the vasculature. Individualized dose optimization technique was used for the procedure performed. CONTRAST: 100 cc Omnipaque 350 contrast FINDINGS: The thoracic aorta is normal in caliber with no evidence of aneurysm or dissection. The heart is mild to moderately prominent. This is stable from previous exam of 09/24/2022. Electronic cardiac device is in place. There is no significant pericardial effusion or pericardial thickening. There is no mediastinal masses or adenopathy. There is no axillary adenopathy. There are no evidence of filling defects within the pulmonary arteries to suggest pulmonary emboli. The lungs are essentially clear without evidence of nodule, mass, or infiltrate. There is no evidence of pleural effusion or pneumothorax. No significant abnormalities are identified of the visualized osseous structures. No significant abnormalities are identified of the visualized portion of the upper abdomen. IMPRESSION: 1. Stable cardiomegaly 2. No evidence of pulmonary embolism 3. No other significant abnormalities identified. Electronically authenticated by: MATHEW GUTIERREZ Date: 05/08/2023 11:15 Procedure: XR chest 1V EXAM: XR chest 1V HISTORY: CP COMPARISON: 12/05/2022 FINDINGS/IMPRESSION: 1. Lungs are clear . Left pacemaker/ICD with intact leads. 2. No pneumothorax. No pleural effusion. 3. Heart size and mediastinal contours are normal 4. No acute osseous abnormality. 5. Upper abdominal bowel gas pattern is nonspecific. Electronically authenticated by: TERRY HIGGINBOTHAM Date: 05/08/2023 10:05 ECG Data Attestation: I personally reviewed and interpreted this ECG as follows: (EKG on my interpretation shows paced rhythm) Heart Score History: Slightly/Non-Suspicious ECG: Normal Age: <45 years Risk Factors: 1 or 2 Risk Factors Troponin: <Normal Limit Total Heart Score Recommendations & Risks:: 1 Discharge Plan Discharge Chief Complaint: Chest Pain Clinical Impression: Chest pain Patient Disposition: Home, Self-Care Time of Disposition Decision: 11:43 Condition: Good Mode of Transportation: Private Vehicle Prescriptions / Home Meds: No Action citalopram 20 mg tablet 20 mg PO DAILY olanzapine 5 mg tablet 5 mg PO DAILY topiramate 50 mg tablet 50 mg PO Q12H fluticasone propionate 50 mcg/actuation spray,suspension 1 spray INTRANASAL Q12H atorvastatin 80 mg tablet 80 mg PO DAILY amitriptyline 25 mg tablet 25 mg PO BEDTIME amiodarone 100 mg tablet 100 mg PO DAILY gabapentin 300 mg capsule 300 mg PO Q8H furosemide 20 mg tablet 20 mg PO DAILY alprazolam 1 mg tablet 1 mg PO .q6 PRN (Reason: anxiety) aspirin [Adult Aspirin Regimen] 81 mg tablet,delayed release (DR/EC) 81 mg PO DAILY carvedilol 6.25 mg tablet 6.25 mg PO Q12H losartan 25 mg tablet 25 mg PO DAILY pantoprazole 40 mg tablet,delayed release (DR/EC) 40 mg PO DAILY spironolactone 25 mg tablet 12.5 mg PO DAILY [id number]-irijjajndbgif-[id number] 50-325-40 mg tablet 1 tab PO Q6H PRN (Reason: pain) ibuprofen 800 mg tablet 800 mg PO Q8H PRN (Reason: pain) Qty: 20 0RF Instructions: Chest Pain (ED) Stand Alone Forms: Portal Instructions Referrals: Rock Robertson MD [Primary Care Provider] - 1 week
[2023-05-08 09:29] LABS: Basophils Percent Auto 0.8 % (0.2-2.0); Eosinophils Absolute Auto 0.1 10^3/uL (0.0-0.7); Hematocrit 37.9 % (36.0-48.0); Hemoglobin 13.2 g/dL (12.0-16.0); Immature Granulocytes Abs Auto 0.02 10^3/uL (0.00-0.03); Immature Granulocytes Pct Auto 0.4 % (0.0-0.5); Lymphocytes Absolute Auto 0.8 10^3/uL (1.2-3.8); Lymphocytes Percent Auto 16.9 % (20.5-60.0); Mean Corpuscular HGB Conc 34.8 g/dL (29.9-35.2); Mean Corpuscular Hemoglobin 30.7 pg (26.7-34.0); Mean Corpuscular Volume 88.1 fL (81.0-99.0); Mean Platelet Volume 10.7 fL (9.5-13.5); Monocytes Absolute Auto 0.4 10^3/uL (0.3-0.8); Monocytes Percent Auto 8.4 % (1.7-12.0); Neutrophils Absolute Auto 3.5 10^3/uL (1.4-6.5); Neutrophils Percent Auto 72.5 % (43.0-75.0); Platelet Count 157 10^3/uL (150-450); Red Cell Distribution Width 12.9 % (11.0-15.0); White Blood Count 4.8 10^3/uL (4.0-11.0)
[2023-05-08 09:45] LABS: Anion Gap 12.3; BUN Creatinine Ratio 9.3; Calcium 8.6 mg/dL (8.5-10.1); Carbon Dioxide 25.4 mmol/L (21.0-32.0); Chloride 105 mmol/L (98-107); Estimated GFR (African America >60 (>=60); Estimated GFR (Non-African Ame >60 (>=60); Glucose 92 mg/dL (74-106); Potassium 3.7 mmol/L (3.5-5.1); Sodium 139 mmol/L (136-145); Troponin I High Sensitivity 15.1 pg/mL (4.0-51.3)
--- NOTE | 2023-05-08 09:52 | CT_ITS ---
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 CLINICAL INDICATION: 42 years Female chest pain, history of pulmonary embolism TECHNIQUE: Axial images were obtained. Coronal and sagittal reformations were created. Multiplanar MIP reconstructions and 3D volume-rendered surface shaded reconstructions were created by the mining engineering technologist to aid in evaluation of the vasculature. Individualized dose optimization technique was used for the procedure performed. CONTRAST: 100 cc Omnipaque 350 contrast FINDINGS: The thoracic aorta is normal in caliber with no evidence of aneurysm or dissection. The heart is mild to moderately prominent. This is stable from previous exam of 09/24/2022. Electronic cardiac device is in place. There is no significant pericardial effusion or pericardial thickening. There is no mediastinal masses or adenopathy. There is no axillary adenopathy. There are no evidence of filling defects within the pulmonary arteries to suggest pulmonary emboli. The lungs are essentially clear without evidence of nodule, mass, or infiltrate. There is no evidence of pleural effusion or pneumothorax. No significant abnormalities are identified of the visualized osseous structures. No significant abnormalities are identified of the visualized portion of the upper abdomen. CT/CT angio chest IMPRESSION: 1. Stable cardiomegaly 2. No evidence of pulmonary embolism 3. No other significant abnormalities identified. Electronically authenticated by: MATHEW GUTIERREZ Date: 05/08/2023 11:15
[2023-05-08 11:19] LABS: Troponin I High Sensitivity 20.4 pg/mL (4.0-51.3)
[2023-05-08] MEDS: KETOROLAC TROMETHAMINE 30 MG/ML VIAL IVP (11:34)
== END 2023-05-08 11:52 | disposition home or self-care (01) ==
PROVIDERS: Emergency Provider Emergency Medicine; PCP Family Medicine
DX: R07.9 Chest pain, unspecified (principal); Z95.0 Presence of cardiac pacemaker; I42.0 Dilated cardiomyopathy; Z79.82 Long term (current) use of aspirin; Z79.899 Other long term (current) drug therapy; F17.210 Nicotine dependence, cigarettes, uncomplicated
CPT/HCPCS: 36415; 71045; 71275; 80048; 84484; 85025; 93005; 96374; 99285; Q9967

== ENCOUNTER 2024-07-15 08:58 | Emergency (ER) | payer SELFPAY ==
[2024-07-15 09:01] VITALS: BP 132/83; PULSE 67; TEMP 37; O2SAT 99; BMI 32.5
--- OUTSIDE RECORDS SUMMARY | 2024-07-15 09:05 | XMS_ITS | CCD ---
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 mL/min/1.73m??? Normal >=60 [facility] Comment on above: Order Comment: Speci men Type: BLOOD SPECIMENOrdering Facility: [facility] Address: [address] [place] [address] Result Comment: Suzette mated Glomerular Filtration Rate (eGFR) is calculated using the 2020 CKD-EPI creatinine equation. This equation utilizes serum creatinine, sex, and age as parameters. The creatinine assay has traceable calibration to isotope dilution-mass spectrometry. Refer to KDIGO guidelines for clinical interpretation. In patients with unstable renal function, e.g. those with acute kidney injury, the eGFR may not accurately reflect actual GFR. Performed By: #### 2 4321-2 ####[facility] LABCLIA [id number] [place] [address] [place] Glucose [Mass/Vol] 98 mg/dL Normal 74-99 [facility] Comment on above: Order Comment: Speci men Type: BLOOD SPECIMENOrdering Facility: [facility] Address: [address] [place] [address] Result Comment: The [place] Diabetes Association (ADA) provides guidance for cutoff values for fasting glucose and random glucose. The ADA defines fasting as no caloric intake for at least 8 hours. Fasting plasma glucose results between 100 to 125 mg/dL indicate increased risk for diabetes (prediabetes). Fasting plasma glucose results greater than or equal to 126 mg/dL meet the criteria for diagnosis of diabetes. In the absence of unequivocal hyperglycemia, results should be confirmed by repeat testing. In a patient with classic symptoms of hyperglycemia or hyperglycemic crisis, random plasma glucose results greater than or equal to 200 mg/dL meet the criteria for diagnosis of diabetes. Reference: Standards of Medical Care in Diabetes 2016, [place] [employer]. Diabetes Care. 2016.39(Suppl 1). Performed By: #### 2 4321-2 ####[facility] LABCLIA [id number] [place] [address] [place] Potassium [Moles/Vol] 4.3 mmol/L Normal 3.7-5.1 [facility] Comment on above: Order Comment: Speci men Type: BLOOD SPECIMENOrdering Facility: [facility] Address: [address] [place] [address] Performed By: #### 2 4321-2 ####[facility] LABCLIA [id number] [place] [address] [place] Sodium [Moles/Vol] 138 mmol/L Normal 136-144 [facility] Comment on above: Order Comment: Speci men Type: BLOOD SPECIMENOrdering Facility: [facility] Address: [address] [place] [address] Performed By: #### 2 4321-2 ####[facility] LABCLIA [id number] [place] [address] [place] Urea nitrogen [Mass/Vol] 8 mg/dL Normal 7-21 [facility] Comment on above: Order Comment: Speci men Type: BLOOD SPECIMENOrdering Facility: [facility] Address: [address] [place] [address] Performed By: #### 2 4321-2 ####[facility] LABCLIA [id number] [place] [address] [place] CBC panel Auto (Bld)on 01-02 Erythrocyte distribution width (RBC) [Ratio] 12.8 % Normal 11.5-15.0 [facility] Comment on above: Order Comment: Speci men Type: BLOOD SPECIMENOrdering Facility: [facility] Address: [address] [place] [address] Performed By: #### 5 8410-2 ####[facility] LABIA [id number] [address] [place] Hematocrit (Bld) [Volume fraction] 37.4 % Normal 36.0-46.0 [facility] Comment on above: Order Comment: Speci men Type: BLOOD SPECIMENOrdering Facility: [facility] Address: [address] [place] [address] Performed By: #### 5 8410-2 ####[facility] LABCLIA [id number] [place] [address] [place] Hemoglobin (Bld) [Mass/Vol] 13.0 g/dL Normal 11.5-15.5 [facility] Comment on above: Order Comment: Speci men Type: BLOOD SPECIMENOrdering Facility: [facility] Address: [address] [place], [place] [address] Performed By: #### 5 8410-2 ####[facility] LABCLIA [id number] [place] [address] [place] MCH (RBC) [Entitic mass] 30.2 pg Normal 26.0-34.0 [facility] Comment on above: Order Comment: Speci men Type: BLOOD SPECIMENOrdering Facility: [facility] Address: [address] Performed By: #### 5 8410-2 ####[facility] [id number] [address] [place] [facility] MCHC (RBC) [Mass/Vol] 34.8 g/dL Normal 30.5-36.0 [facility] Comment on above: Order Comment: Speci men Type: BLOOD SPECIMENOrdering Facility: [facility] Address: [address] Performed By: #### 5 8410-2 ####[facility] [id number] [address] [place] MCV (RBC) [Entitic vol] 86.8 fL Normal 80.0-100.0 [facility] Comment on above: Order Comment: Speci men Type: BLOOD SPECIMENOrdering Facility: [facility] Address: [address] Performed By: #### 5 8410-2 ####[facility] [id number] [place] [address] [place] Nucleated RBC (Bld) [#/Vol] 10*3/uL Normal <0.01 [facility] Comment on above: Order Comment: Speci men Type: BLOOD SPECIMENOrdering Facility: [facility] Address: [address] [place], [place] [address] Performed By: #### 5 8410-2 ####[facility] LABSOU[facility] [id number] [place] [address] [place] Platelet mean volume (Bld) [Entitic vol] 11.1 fL Normal 9.0-12.7 [facility] Comment on above: Order Comment: Speci men Type: BLOOD SPECIMENOrdering Facility: [facility] Address: [address] [place], [place] [address] Performed By: #### 5 8410-2 ####[facility] [id number] [place] [address] [place] Platelets (Bld) [#/Vol] 146 10*3/uL Low 150-400 [facility] Comment on above: Order Comment: Speci men Type: BLOOD SPECIMENOrdering Facility: [facility] Address: [address] [place] [address] Performed By: #### 5 8410-2 ####[facility] [id number] [place] [address] [place] RBC (Bld) [#/Vol] 4.31 10*6/uL Normal 3.90-5.20 [facility] Comment on above: Order Comment: Speci men Type: BLOOD SPECIMENOrdering Facility: [facility] Address: [address] [place] [address] Performed By: #### 5 8410-2 ####[facility] [id number] [address] [place] WBC (Bld) [#/Vol] 8.88 10*3/uL Normal 3.70-11.00 [facility] Comment on above: Order Comment: Speci men Type: BLOOD SPECIMENOrdering Facility: [facility] Address: [address] [place] [address] Performed By: #### 5 8410-2 ####[facility] [id number] [address] [place] ECG COMPLETEon 01-02-2023 ECG COMPLETE Ventricular Rate : 6 0 BPM Atrial Rate : 60 BPM P-R Interval : 136 ms QRS Duration : 182 ms Q-T Interval : 500 ms QTC Calculation(Bazett) : 500 ms Calculated P Bimble : 89 degrees Calculated R Bimble : -137 degrees Calculated T Bimble : 23 degrees AV DUAL-PACED RHYTHM BIVENTRICULAR PACEMAKER DETECTED ABNORMAL ECG Confirmed by HONG SHAFER MD ([id number]) on 01/05/2023 2:14:49 PM NAME : CARITO RIOS PID : [id number] : 1980 Gender : Female Race : ORD : [id number] Procedure Date : Jan 02 2023 06:11:19 Edit Date : Jan 05 2023 14:14:52 Diagnosis: AV DUAL-PACED RHYTHM BIVENTRICULAR PACEMAKER DETECTED ABNORMAL ECG Confirmed by HONG SHAFER MD ([id number]) on 01/05/2023 2:14:49 PM Test Reason : Post-OP Location : 361 : J61 [id number] Overread By : HONG SHAFER MD Edited By : HONG SHAFER MD Referred By : , Acquired by : LACEY TOM [facility] XR CHEST 2V FRONTAL/LATon XR CHEST 2V FRONTAL/LAT * * *Final Report* * * DATE OF EXAM: Jan 02 2023 9:36AM JIX [id number] - XR CHEST 2V FRONTAL/LAT / PROCEDURE REASON: Post-operative / post-procedure assessment, asymptomatic * * * * Physician Interpretation * * * * EXAMINATION: CHEST RADIOGRAPH (2 VIEW FRONTAL and LATERAL) CLINICAL HISTORY: Post-operative / post-procedure assessment, asymptomatic MQ: [id number] EXAM DATE/TIME: 01/02/2023 9:36 AM COMPARISON: Chest radiograph dated 12/30/2022 RESULT: Lines, tubes, and devices: A left-sided hybrid ICD is present with leads terminating in expected positions of the right atrium and right ventricle with epicardial leads along the left heart border. The right atrial lead has probably been exchanged in the interval. Lungs and pleura: No pleural effusion. No consolidation. No pulmonary edema. No pneumothorax identified. Cardiomediastinal silhouette: Stable cardiomediastinal silhouette. Bones and soft tissues: Unremarkable. IMPRESSION: See result. Strain Technician: PSCB Transcribe Date/Time: Jan 02 2023 10:41A Dictated by : CLIF ROTHMAN MD This examination was interpreted and the report reviewed and electronically signed by: CLIF ROTHMAN MD on Jan 02 2023 10:45AM EST [id number] Normal [facility] ANES POSTPROC EVALon 023 ANES POSTPROC EVAL HNO ID: [id number] Author: Vikki Pretty DO Service: ? Author Type: Anesthesiologist Type: Anesthesia Postprocedure Evaluation Filed: 01/01/2023 7:58 PM Note Text: POST ANESTHESIA EVALUATION NOTE : 1980 Procedure Summary Date: 01/01/23 Room / Location: [address] AND VAS Anesthesia Start: 1256 Anesthesia Stop: 1926 Procedures: REMOVAL ELECTRODE(S) IMPLANTABLE DEFIBRILLATOR TRANSVENOUS EXTRACTION PIPE FITTER SOFT COPPER PACEMAKER SINGLE Diagnosis: Chronic systolic CHF (congestive heart failure) (HCC) NICM (nonischemic cardiomyopathy) (HCC) Other mechanical complication of cardiac electrode, initial encounter (Chronic systolic CHF (congestive heart failure) (HCC) [I50.22]) (NICM (nonischemic cardiomyopathy) (HCC) [I42.8]) (Other mechanical complication of cardiac electrode, initial encounter [T82.190A]) Surgeons: Darling Martinez MD Responsible Provider: Carito Franco MD Anesthesia Type: general ASA Status: 3 Anesthesia Type: general Airway Type: ETT Last Vitals Vitals Value Taken Time BP 123/56 (81) 01/01/231956 Temp 36.9 01/01/231956 Pulse 60 01/01/231955 Resp 16 01/01/231955 SpO2 99 % 01/01/231955 Vitals shown include unvalidated device data. Post Anesthesia Patient Status Patient Evaluation: PACU. PACU/ICU Patient Condition: stable. Anticipated Disposition: inpatient floor planned admission. Neurological Status: sleepy but arousable. Pulmonary Status: breathing comfortably on supplemental oxygen Airway Control: returned to baseline unsupported. Cardiovascular Status: stable. Pain Management: inadequate with additional pain medication ordered/administered. Postoperative Hydration: acceptable. Intraoperative Events: no significant anesthesia events Post Operative Nausea/Vomiting Status: no significant post operative nausea or vomiting Recommendation: continue current plan of care and further care per PACU/ICU/floor team. Anesthesia Observations No Documentation SIGNATURE: Vikki Pretty DO PATIENT NAME: Carito Rios DATE: January 01, 2023 TIME: 7:57 PM CSN: [id number] Normal [facility] ANES PRE-OPon 01-01-2023 ANES PRE-OP HNO ID: [id number] Author: Jama Wilson MD Service: ? Author Type: Anesthesiologist Type: Anesthesia Preprocedure Evaluation Filed: 01/01/2023 1:00 PM Note Text: ANESTHESIOLOGY DAY OF SURGERY NOTE : 1980 Procedure Information Anesthesia Start Date/Time: 01/01/23 1256 Procedures: REMOVAL ELECTRODE(S) IMPLANTABLE DEFIBRILLATOR TRANSVENOUS EXTRACTION PIPE FITTER SOFT COPPER PACEMAKER SINGLE Location: [facility] CT AND VAS Surgeons: Darling Martinez MD Estimated body mass index is 28.37 kg/m? as calculated from the following: Height as of this encounter: 175.3 cm (5' 9 ). Weight as of this encounter: 87.1 kg (192 lb 1.6 oz). Most recent hematocrit and potassium results: Hematocrit 41.2 12/30/2022 Potassium 4.3 12/30/2022 Relevant Problems No relevant active problems I - PHYSICAL EVALUATION AIRWAY Patient intubated: No. Tracheostomy tube not present Mallampati: II. TM distance: >3 FB. Neck ROM: full ROM without neurological symptoms. Mouth opening: adequate. Short neck: no. Thick neck: no Vizcaino present: no DENTAL Dental findings: edentulous. II - ANESTHESIA PLAN ASA Score: 3 Anesthetic Plan: general Airway type: ETT The patient is a current smoker. NPO Status: adequate Beta Becka Administration of chronic beta becka medication planned. Monitoring Plan Monitoring plan: standard ASA and invasive hemodynamic monitoring. Monitoring method: arterial Line, CVL and CADY CADY details: patient denies history of stricture or varices Post Procedure Analgesic Plan Postoperative analgesic plan: parenteral or oral opioids. Informed Consent Anesthetic risks, benefits, alternatives, personnel and consent discussed: yes. Patient / Responsible Democrat agrees to proceed: yes Patient / Surrogate agrees to blood products: Yes DNR status not reviewed with patient and/or family prior to surgery. Significant changes in the patient condition since the History and Physical, not otherwise documented in primary service progress note: no. Potential Anesthesia issues that may suggest increased risk of complications or contraindication to planned procedure: none. Discussed the possibility of lip / dental damage: no Vitals Value Taken Time BP 106/66 01/01/23 1014 Pulse 60 01/01/23 1249 Resp 16 01/01/23 1014 Temp 36.6 ?C (97.9 ?F) 07/14/23 1014 SpO2 97 % 01/01/23 1249 Vitals shown include unvalidated device data. No current facility-administered medications on file as of 01/01/2023. Outpatient Medications as of 01/01/2023 Medication Sig - ALPRAZolam (XANAX) 1 mg tablet Take 1 mg by mouth three times daily as needed. - aspirin, enteric coated (ASPIRIN, ENTERIC COATED) 81 mg EC tablet q 24 HR. - atorvastatin (LIPITOR) 80 mg tablet Take 80 mg by mouth. - carvedilol (COREG) 6.25 mg tablet Take 6.25 mg by mouth twice daily. - citalopram (CELEXA) 20 mg tablet Take 20 mg by mouth once daily. - gabapentin (NEURONTIN) 300 mg capsule TAKE 1 CAP AT BEDTIME ON DAY 1, THEN 1 CAP TWICE DAILY ON DAY 2, THEN 1 CAP 3 TIMES A DAY - losartan (COZAAR) 25 mg tablet Take 25 mg by mouth once daily. - OLANZapine (ZYPREXA) 5 mg tablet Take 5 mg by mouth once daily. - spironolactone (ALDACTONE) 25 mg tablet Take 12.5 mg by mouth once daily. - topiramate (TOPAMAX) 50 mg tablet Take 50 mg by mouth twice daily. - amitriptyline (ELAVIL) 25 mg tablet TAKE 1 TABLET BY MOUTH EVERY DAY AT BEDTIME FOR 30 DAYS I have interviewed and examined the patient. I have reviewed the medical record and/or the pre-anesthesia evaluation, pertinent labs, and test results. This contains updated information obtained within 48 hours of Surgery/Procedure. SIGNATURE: Jama Wilson MD PATIENT NAME: Carito Rios DATE: January 01, 2023 TIME: 1:00 PM CSN: [id number] Normal [facility] ARTERIAL BLOOD GASESon 01-01 Base excess Calc (Bld) [Moles/Vol] 0 mmol/L Normal 0-2 [facility] Comment on above: Order Comment: Speci men Type: ARTERIAL BLOOD SPECIMENOrdering Facility: [facility] Address: [address] [place] [id number] Performed By: #### A [facility] ####[facility] LABCLIA [id number] [place] [address] [place] Calcium.ionized (Bld) [Mass/Vol] 1.19 mmol/L Normal 1.08-1.30 [facility] Comment on above: Order Comment: Speci men Type: ARTERIAL BLOOD SPECIMENOrdering Facility: [facility] Address: [address] [place] [address] Performed By: #### A [facility] ####[facility] LABIA [id number] [place] [address] [place] Calcium.ionized adjusted to pH 7.4 (BldA) [Moles/Vol] 1.20 mmol/L Normal 1.08-1.30 [facility] Comment on above: Order Comment: Speci men Type: ARTERIAL BLOOD SPECIMENOrdering Facility: [facility] Address: [address] [place] [address] Performed By: #### A [facility] ####[facility] LABCLIA [id number] [place] [address] [place] Carboxyhemoglobin (BldA) [Mass fraction] 6.0 % High 0.0-2.0 [facility] Comment on above: Order Comment: Speci men Type: ARTERIAL BLOOD SPECIMENOrdering Facility: [facility] Address: [address] [place] [address] Result Comment: Carb oxyhemoglobin Reference Range for Smokers: 2.0-8.0% Performed By: #### A [facility] ####[facility] LABCLIA [id number] [place] [address] [place] CO2 (Bld) [Partial pressure] 38 mm Hg Normal 36-46 [facility] Comment on above: Order Comment: Speci men Type: ARTERIAL BLOOD SPECIMENOrdering Facility: [facility] Address: [address] [place], [place] [address] Performed By: #### A LL[facility] ####[facility] LABCLIA [id number] [address] [place] CO2 [Moles/Vol] 25 mmol/L Normal 22-28 [facility] Comment on above: Order Comment: Speci men Type: ARTERIAL BLOOD SPECIMENOrdering Facility: [facility] Address: [address] [place] [address] Performed By: #### A [facility] ####[facility] LABCLIA [id number] [place] [address] [place] CO2 adjusted to patient's actual temperature (Bld) [Partial pressure] 38 mmHg Normal 36-46 [facility] Comment on above: Order Comment: Speci men Type: ARTERIAL BLOOD SPECIMENOrdering Facility: [facility] Address: [address] [place] [address] Performed By: #### A [facility] ####[facility] LABCLIA [id number] [place] [address] [place] Glucose [Mass/Vol] 85 mg/dL Normal 60-105 [facility] Comment on above: Order Comment: Speci men Type: ARTERIAL BLOOD SPECIMENOrdering Facility: [facility] Address: [address] [place], [place] [address] Performed By: #### A LL[facility] ####[facility] LABCLIA [id number] [place] [address] [place] HCO3 (Bld) [Moles/Vol] 24 mmol/L Normal 22-26 [facility] Comment on above: Order Comment: Speci men Type: ARTERIAL BLOOD SPECIMENOrdering Facility: [facility] Address: [address] [place], [place] [address] Performed By: #### A LL[facility] ####[facility] LABCLIA [id number] [place] [address] [place] Hematocrit (Bld) [Volume fraction] 38.6 % Normal 36.0-46.0 [facility] Comment on above: Order Comment: Speci men Type: ARTERIAL BLOOD SPECIMENOrdering Facility: [facility] Address: [address] Performed By: #### A LL[facility] ####[facility] LABCLIA [id number] [address] [place] Hemoglobin (Bld) [Mass/Vol] 12.5 g/dL Normal 11.5-15.5 [facility] Comment on above: Order Comment: Speci men Type: ARTERIAL BLOOD SPECIMENOrdering Facility: [facility] Address: [address] Performed By: #### A LL[facility] ####[facility] LABIA [id number] [place] [address] [place] Lactate [Moles/Vol] 0.5 mmol/L Normal 0.5-2.2 [facility] Comment on above: Order Comment: Speci men Type: ARTERIAL BLOOD SPECIMENOrdering Facility: [facility] Address: [address] [place], [place] [address] Performed By: #### A [facility] ####[facility] LABIA [id number] [place] [address] [place] Methemoglobin (Bld) [Mass fraction] 0.7 % Normal 0.0-1.5 [facility] Comment on above: Order Comment: Speci men Type: ARTERIAL BLOOD SPECIMENOrdering Facility: [facility] Address: [address] Performed By: #### A [facility] ####[facility] LABCLIA [id number] [place] [address] [place] Oxygen (Bld) [Partial pressure] 243 mm Hg High 85-95 [facility] Comment on above: Order Comment: Speci men Type: ARTERIAL BLOOD SPECIMENOrdering Facility: [facility] Address: [address] Performed By: #### A [facility] ####[facility] LABIA [id number] [place] Oxygen adjusted to patient's actual temperature (Bld) [Partial pressure] 243 mmHg High 85-95 [facility] Comment on above: Order Comment: Speci men Type: ARTERIAL BLOOD SPECIMENOrdering Facility: [facility] Address: [address] [place], [place] [address] Performed By: #### A [facility] ####[facility] LABCLIA [id number] [place] [address] [place] Oxyhemoglobin (BldA) [Mass fraction] 93 % Low 95-98 [facility] Comment on above: Order Comment: Speci men Type: ARTERIAL BLOOD SPECIMENOrdering Facility: [facility] Address: [address] [place], [place] [address] Performed By: #### A [facility] ####[facility] LABCLIA [id number] [place] [address] [place] pH (Bld) 7.42 [pH] Normal 7.35-7.45 [facility] Comment on above: Order Comment: Speci men Type: ARTERIAL BLOOD SPECIMENOrdering Facility: [facility] Address: [address] [place], [place] [address] Performed By: #### A [facility] ####[facility] LABCLIA [id number] [address] [place] pH adjusted to patient's actual temperature (Bld) 7.42 Normal 7.35-7.45 [facility] Comment on above: Order Comment: Speci men Type: ARTERIAL BLOOD SPECIMENOrdering Facility: [facility] Address: [address] [place], [place] [address] Performed By: #### A [facility] ####[facility] LABCLIA [id number] [place] [address] [place] Potassium [Moles/Vol] 3.7 mmol/L Normal 3.5-5.0 [facility] Comment on above: Order Comment: Speci men Type: ARTERIAL BLOOD SPECIMENOrdering Facility: [facility] Address: [address] [address] Performed By: #### A [facility] ####[facility] LABCLIA [id number] [address] [place] Sodium [Moles/Vol] 138 mmol/L Normal 136-144 [facility] Comment on above: Order Comment: Speci men Type: ARTERIAL BLOOD SPECIMENOrdering Facility: [facility] Address: [address] [address] Performed By: #### A [facility] ####[facility] LABCLIA [id number] [address] [place] Bacteria Ur Culton 3 Bacteria identified Cx Nom (U) CULTURE, URINE: No growth (<1,000 CFU/ml) Normal [facility] Comment on above: Performed By: #### 6 30-4 ####[facility] LABCLIA [id number] [address] [place] INTRAOPERATIVE ECHO PREon INTRAOPERATIVE ECHO PRE Echocardiography Report: Intraoperative Echo Pre (CADY)/Post [facility] [place] - J4 Date of service: 01/01/2023 1:12:09 PM MANAGER Indication: RV lead extraction Technologist: staff Interpreting physician: Jama Wilson MD PATIENT: Name: CARITO RIOS : 1980 Age: 42 years Gender: F (PRE PROCEDURE) Color Doppler was utilized to interrogate the cardiac valves assessed and spectral Doppler was utilized to determine the flow velocities and pressure gradients reported in this exam. (POST PROCEDURE) Color Doppler was utilized to interrogate the cardiac valves assessed in this exam. Easy CADY probe placement. MEASUREMENTS: (PRE PROCEDURE) FINDINGS: (PRE PROCEDURE) LEFT VENTRICLE The left ventricle is normal in size. Left ventricular systolic function is mildly decreased. 3D data was obtained and analyzed to provide quantitative left ventricle measurements and assist with ventricular assessment. RIGHT VENTRICLE The right ventricle is normal in size. Right ventricular systolic function is normal. LEFT ATRIUM There is no left atrial appendage thrombus. Pulmonary Veins: The pulmonary venous pattern showed normal systolic flow. MITRAL VALVE Gambell mitral valve. There is trace mitral valve regurgitation. TRICUSPID VALVE Gambell tricuspid valve. There is trace tricuspid valve regurgitation. 3D echocardiographic multi-planar reconstruction of the tricuspid valve was performed to assess anatomy and function. AORTIC VALVE There is no aortic valve stenosis. There is no aortic valve regurgitation. Tricuspid aortic valve. PULMONIC VALVE There is no pulmonic valve regurgitation. INTERATRIAL SEPTUM There is no patent foramen ovale as detected by Doppler. PERICARDIUM The pericardium is normal. FINDINGS: (POST PROCEDURE) Post Procedure Run 1 The left ventricle is normal in size. Left ventricular systolic function is mildly decreased. The right ventricle is mildly dilated. Right ventricular systolic function is normal. There is trivial mitral valve regurgitation. There is 3+ tricuspid valve regurgitation. CONCLUSIONS: (PRE PROCEDURE) - Exam indication: RV lead extraction - The left ventricle is normal in size. Left ventricular systolic function is mildly decreased. - The right ventricle is normal in size. Right ventricular systolic function is normal. - There is no patent foramen ovale as detected by Doppler. 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 - findings communicated to procedural team Final [facility] Image : [id number] See Link below for Image Normal [facility] SURGICAL PATHOLOGYon 023 CASE REPORT Normal [facility] Comment on above: Order Comment: Speci men Type: DEVICE SPECIMENOrdering Facility: [facility] Address: [facility] [place] [address] Result Comment: Surg ica Pathology Report Case: [id number] Authorizing Provider: Darling Martinez MD Collected: 01/01/2023 05:14 PM Ordering Location: Admitting Received: 01/04/2023 07:43 AM Pathologist: Fariha Salcido MD Specimens: A) - HARDWARE, A Lead B) - HARDWARE, ICD lead Performed By: #### S ####[facility] LABCLIA [id number] [address] CLINICAL HISTORY Normal [facility] Comment on above: Order Comment: Taisha turcios Type: DEVICE SPECIMENOrdering Facility: [facility] Address: [address] [place] [address] Result Comment: Pre- op diagnosis: Chronic systolic CHF (congestive heart failure) ([facility]) [I50.22] NICM (nonischemic cardiomyopathy) ([facility]) [I42.8] Other mechanical complication of cardiac electrode, initial encounter [T82.190A] Performed By: #### S ####[facility] LABCLIA [id number] [address] DIAGNOSIS COMMENT Microscopic examinat ion of parts A and B demonstrates a calcified fibrous cuff is demonstrated in 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 Normal [facility] Comment on above: Order Comment: Taisha turcios Type: DEVICE SPECIMENOrdering Facility: [facility] Address: [address] [place] [address] Performed By: #### S ####[facility] LABIA [id number] [address] FINAL DIAGNOSIS Normal [facility] Comment on above: Order Comment: Taisha turcios Type: DEVICE SPECIMENOrdering Facility: [facility] Address: [address] [place] [address] Result Comment: A. L ead, extraction: -Calcified fibrous cuff. B. Lead extraction: -Calcified fibrous cuff. Performed By: #### S ####[facility] LABCLIA [id number] [address] OF [facility] FINAL PERFORMING LAB Normal [facility] Comment on above: Order Comment: Speci men Type: DEVICE SPECIMENOrdering Facility: [facility] Address: [address] [id number] Result Comment: Diag nostic interpretation performed at [facility], [address] [address] CLIA# [id number] [employer] Operations Specialist: Ramiro Anguiano M.D. Performed By: #### S ####[facility] LABCLIA [id number] [place] [address] [place] GROSS DESCRIPTION A. HARDWARE Normal [facility] Comment on above: Order Comment: Speci men Type: DEVICE SPECIMENOrdering Facility: [facility] Address: [address] [id number] Result Comment: Rece ived in formalin, labeled A lead is a segment of lead wire measuring 32.0 cm in length and 0.2 cm in diameter. The tip is present. The screw tip is deployed. A connector pin is not present. The body of the lead is fully insulated. Located 7.0 cm from the tip, a segment of [id number] soft tissue is present, which measures 6.0 x 0.3 cm. The soft tissue is entirely submitted in cassette A1, following light decalcification. B. HARDWARE Received in formalin, labeled ICD lead are 2 segments of lead wire measuring 27.0 cm and 19.5 cm in length and 0.2 cm in diameter. The tip is present. The screw tip is deployed. A connector pin is not present. The body of the lead is fully insulated. There is 1 coil present. Located 1.8 cm from the distal tip is a segment of tissue, measuring 2.0 x 0.3 cm. The soft tissue is entirely submitted in cassette B1, following light decalcification. AKA January 04, 2023 10:48 AM Gross examination performed at [facility], [address] [place] [address] Performed By: #### S ####[facility] LABCLIA [id number] [place] [address] [place] URINALYSIS, DIPSTICK ONLYon 01-01-2023 Bilirubin Ql (U) Negative Normal Negative [facility] Comment on above: Order Comment: Speci men Type: URINE SPECIMENOrdering Facility: [facility] Address: [address] [address] Performed By: #### U A ####[facility] LABCLIA [id number] [place] [address] [place] Clarity (Unsp spec) Clear Normal Clear [facility] Comment on above: Order Comment: Speci men Type: URINE SPECIMENOrdering Facility: [facility] Address: [address] [address] Performed By: #### U A ####[facility] LABCLIA [id number] [place] [address] [place] [facility] Color (U) Yellow Normal Yellow [facility] Comment on above: Order Comment: Speci men Type: URINE SPECIMENOrdering Facility: [facility] Address: [address] [place] [address] Performed By: #### U A ####[facility] LABCLIA [id number] [place] [address] [place] Glucose Test strip (U) [Mass/Vol] Negative Normal Trace, Negative [facility] Comment on above: Order Comment: Speci men Type: URINE SPECIMENOrdering Facility: [facility] Address: [address] [address] Performed By: #### U A ####[facility] LABCLIA [id number] [place] [address] [place] Hemoglobin Ql (U) 3+ Abnormal Negative, Trace [facility] Comment on above: Order Comment: Speci men Type: URINE SPECIMENOrdering Facility: [facility] Address: [address] [address] Performed By: #### U A ####[facility] LABCLIA [id number] [place] [address] [place] Ketones Ql (U) 2+ Abnormal Trace, Negative [facility] Comment on above: Order Comment: Speci men Type: URINE SPECIMENOrdering Facility: [facility] Address: [address] [place] [address] Performed By: #### U A ####[facility] LABCLIA [id number] [place] [address] [place] Leukocyte esterase Test strip Ql (U) 25 Jayleen/uL Normal Negative, 25 Jayleen/uL [facility] Comment on above: Order Comment: Speci men Type: URINE SPECIMENOrdering Facility: [facility] Address: [address] [place] [address] Performed By: #### U A ####[facility] LABCLIA [id number] [place] [address] [place] Nitrite Ql (U) Negative Normal Negative [facility] Comment on above: Order Comment: Speci men Type: URINE SPECIMENOrdering Facility: [facility] Address: [address] [place] [address] Performed By: #### U A ####[facility] LABCLIA [id number] [place] [address] [place] pH (U) 5.5 [pH] Normal 5.0-8.0 [facility] Comment on above: Order Comment: Speci men Type: URINE SPECIMENOrdering Facility: [facility] Address: [address] [place], [place] [id number] Performed By: #### U A ####[facility] LABCLIA [id number] [place] [address] [place] Protein (U) [Mass/Vol] 1+ Abnormal Trace, Negative [facility] Comment on above: Order Comment: Speci men Type: URINE SPECIMENOrdering Facility: [facility] Address: [address] [place] [address] Performed By: #### U A ####[facility] LABIA [id number] [place] [address] [place] Specific gravity (U) [Rel density] 1.031 High 1.005-1.03 0 [facility] Comment on above: Order Comment: Speci men Type: URINE SPECIMENOrdering Facility: [facility] Address: [address] [place] [address] Performed By: #### U A ####[facility] LABS[facility] [id number] [place] [address] [place] Urobilinogen Ql (U) Negative Normal Negative [facility] Comment on above: Order Comment: Speci men Type: URINE SPECIMENOrdering Facility: [facility] Address: [address] [place] [address] Performed By: #### U A ####[facility] [id number] [place] [address] [place] CBC panel Auto (Bld)on 12-30 Erythrocyte distribution width (RBC) [Ratio] 12.8 % Normal 11.5-15.0 [facility] Comment on above: Order Comment: Speci men Type: BLOOD SPECIMENOrdering Facility: [facility] Address: [address] [place], [place] [id number] Performed By: #### 5 8410-2 ####[facility] [id number] [address] [place] Hematocrit (Bld) [Volume fraction] 41.2 % Normal 36.0-46.0 [facility] Comment on above: Order Comment: Speci men Type: BLOOD SPECIMENOrdering Facility: [facility] Address: [address] [place], [place] [id number] Performed By: #### 5 8410-2 ####[facility] LABS[facility] [id number] [place] [address] [place] Hemoglobin (Bld) [Mass/Vol] 14.5 g/dL Normal 11.5-15.5 [facility] Comment on above: Order Comment: Speci men Type: BLOOD SPECIMENOrdering Facility: [facility] Address: [address] Performed By: #### 5 8410-2 ####[facility] LABIA [id number] [address] MCH (RBC) [Entitic mass] 30.5 pg Normal 26.0-34.0 [facility] Comment on above: Order Comment: Speci men Type: BLOOD SPECIMENOrdering Facility: [facility] Address: [address] [place], [place] [address] Performed By: #### 5 8410-2 ####[facility] LABIA [id number] [address] [place] MCHC (RBC) [Mass/Vol] 35.2 g/dL Normal 30.5-36.0 [facility] Comment on above: Order Comment: Speci men Type: BLOOD SPECIMENOrdering Facility: [facility] Address: [address] [place], [place] [address] Performed By: #### 5 8410-2 ####[facility] LABIA [id number] [address] [place] MCV (RBC) [Entitic vol] 86.7 fL Normal 80.0-100.0 [facility] Comment on above: Order Comment: Speci men Type: BLOOD SPECIMENOrdering Facility: [facility] Address: [address] [place], [place] [address] Performed By: #### 5 8410-2 ####[facility] LABIA [id number] [address] Nucleated RBC (Bld) [#/Vol] 10*3/uL Normal <0.01 [facility] Comment on above: Order Comment: Speci men Type: BLOOD SPECIMENOrdering Facility: [facility] Address: [address] Performed By: #### 5 8410-2 ####[facility] LABIA [id number] [place] [address] [place] Platelet mean volume (Bld) [Entitic vol] 10.9 fL Normal 9.0-12.7 [facility] Comment on above: Order Comment: Speci men Type: BLOOD SPECIMENOrdering Facility: [facility] Address: [address] [place], [place] [address] Performed By: #### 5 8410-2 ####[facility] LABIA [id number] [place] [address] [place] Platelets (Bld) [#/Vol] 208 10*3/uL Normal 150-400 [facility] Comment on above: Order Comment: Speci men Type: BLOOD SPECIMENOrdering Facility: [facility] Address: [address] [place], [place] [address] Performed By: #### 5 8410-2 ####[facility] [id number] [place] [address] [place] RBC (Bld) [#/Vol] 4.75 10*6/uL Normal 3.90-5.20 [facility] Comment on above: Order Comment: Speci men Type: BLOOD SPECIMENOrdering Facility: [facility] Address: [address] [place] [address] Performed By: #### 5 8410-2 ####[facility] LABIA [id number] [place] [address] [place] WBC (Bld) [#/Vol] 5.67 10*3/uL Normal 3.70-11.00 [facility] Comment on above: Order Comment: Speci men Type: BLOOD SPECIMENOrdering Facility: [facility] Address: [address] [place], [place] [address] Performed By: #### 5 8410-2 ####[facility] ASHLEY [id number] [address] [place] CNOVon 12-30-2022 CNOV Office Visit (CARTMN ) EMILIA RIOSENZIRMA Jalloh ([id number]) 1980 F Date Time Provider Department 12/30/22 12:40 PM ANESTHESIA CLEARANCE CARTMN During your visit today, we recorded the following information about you: Ki Mancera MD 12/30/2022 12:48 PM Signed Cardiothoracic Anesthesiology Preoperative Assessment Service Date: 12/30/2022 Service Time: 11:47 AM Primary Care Physician: Rock Dunbar Subjective Patient Entered Data: Scheduled procedure: Lead extraction Surgeon: Darling Martinez Scheduled date: 01/01/2023 HPI: Patient is a 42yoF w/ a hx of NICM and resultant HFrEF s/p DROSS PULLER-D in 2008 c/b by recent RV lead oversensing likely due to coil fracture and inappropriate ICD shock now s/p deactivation. Patient presents today for pre-operative evaluation for the above surgery. Today we discussed the anesthetic plan, what to expect, and any questions or concerns the patient may have had. We additionally discussed perioperative medications and recommended they hold their losartan and spironolactone prior to their surgery but otherwise continue their medications as prescribed. Review no known heparin intolerance not taking anticoagulant/antiplatelet medication no non-cardiac IEDs present no known esophageal disorders blood transfusion consented -. No resulted type AND screen to review COVID-19 Immunization Status Overdue - COVID-19 VACCINE (1) Overdue - never done No completion, postpone, frequency change, or communication history exists for this topic. The patient has the following: There is no problem list on file for this patient. PAST MEDICAL HISTORY Diagnosis Date HF (heart failure) (HCC) NICM (nonischemic cardiomyopathy) (HCC) PAST SURGICAL HISTORY Procedure Laterality Date PAST SURGICAL HISTORY OF 2009 DROSS PULLER-D PAST SURGICAL HISTORY OF multiple device surgeries FAMILY HISTORY Problem Relation Age of Onset Coronary Artery Disease Mother Hypertension Mother Stroke Mother Diabetes Mother Coronary Artery Disease Father Stroke Father Diabetes Sister Diabetes Brother Social History Tobacco Use Smoking status: Every Day Packs/day: 1.00 Years: 20.00 Total pack years: 20.00 Types: Cigarettes Smokeless tobacco: Never Substance Use Topics Alcohol use: Not Currently Drug use: Never Prior to Admission medications as of 12/11/22 1529 Medication Sig Last Dose Taking iv contrast (will be provided with radiology test) CT Cardiac - No IV access, insert saline lock prior to the sedation, infusion, injection for imaging exam. Discontinue saline lock post exam. If Pt. has a central line or IVAD, may access for administration according to line specific nursing protocol. Once exam is complete flush line and de-access according to line specific nursing protocol in the CT contrast administration guidelines link. ALPRAZolam (XANAX) 1 mg tablet Take 1 mg by mouth three times daily as needed. amitriptyline (ELAVIL) 25 mg tablet TAKE 1 TABLET BY MOUTH EVERY DAY AT BEDTIME FOR 30 DAYS aspirin, enteric coated (ASPIRIN, ENTERIC COATED) 81 mg EC tablet q 24 HR. atorvastatin (LIPITOR) 80 mg tablet Take 80 mg by mouth. carvedilol (COREG) 6.25 mg tablet Take 6.25 mg by mouth twice daily. citalopram (CELEXA) 20 mg tablet Take 20 mg by mouth once daily. gabapentin (NEURONTIN) 300 mg capsule TAKE 1 CAP AT BEDTIME ON DAY 1, THEN 1 CAP TWICE DAILY ON DAY 2, THEN 1 CAP 3 TIMES A DAY losartan (COZAAR) 25 mg tablet Take 25 mg by mouth once daily. OLANZapine (ZYPREXA) 5 mg tablet Take 5 mg by mouth once daily. spironolactone (ALDACTONE) 25 mg tablet Take 12.5 mg by mouth once daily. topiramate (TOPAMAX) 50 mg tablet Take 50 mg by mouth twice daily. No medication comments found. ALLERGIES Allergen Reactions Amoxicillin Rash Cefoxitin Rash Sulfa (Sulfonamide * Rash Sulfamethoxazole-Tr* Rash Vancomycin Rash Lisinopril Cough Madi Inhibitors Other: See Comments, Cough Objective Pain Assessment: Vitals: There were no vitals taken for this visit. Diagnostic tests reviewed for today's visit: Lab Value Units Date High Low HB No results within date range. HCT No results within date range. WBC No results within date range. PLT No results within date range. NA No results within date range. K No results within date range. GLUC No results within date range. BUN No results within date range. CREAT 0.80 mg/dL 12/30/2022 1.4 0.7 PTSEC 10.3 sec 12/30/2022 13.0 9.7 INR 1.0 no uni* 12/30/2022 1.3 0.9 APTT No results within date range. ALT No results within date range. AST No results within date range. TBILI No results within date range. TSH No results within date range. Lab Value Units Date High Low HCGQT No results within date range. UHCG No results within date range. HCG, BODY* No results within date range. Lab Value Units Date High Low ABORHD No (more content not included)... Normal [facility] CONFIRM BLOOD TYPEon 023 ABO O Normal [facility] Comment on above: Order Comment: Speci men Type: BLOOD SPECIMENOrdering Facility: [facility] Address: [address] [place] [address] Performed By: #### C ONABO ####[facility] [id number] [address] [place] Rh Nom (Bld) Positive Normal [facility] Comment on above: Order Comment: Speci men Type: BLOOD SPECIMENOrdering Facility: [facility] Address: [address] [place] [address] Performed By: #### C ONABO ####[facility] BLO[facility] BANKCLIA [id number] [place] [address] [place] CT CARDIAC W IVCONon 023 CT CARDIAC W IVCON * * *Final Report* * * DATE OF EXAM: Dec 30 2022 11:41AM JQC 0127 - CT CARDIAC W IVCON / PROCEDURE REASON: Cardiomyopathy, nonischemic (HCC) * * * * Physician Interpretation * * * * CTA Aorta chest Direct Image Comparison: None HISTORY: 42 years old Female with h/o PPM/ICD placement Evaluation for pacer lead extraction, There is request to define thoracic and cardiac anatomy, including location of pacer leads TECHNIQUE: SCANNER: Multi-detector scanner PROTOCOL: Prospectively triggered helical high-pitch acquisitions ( triggered Flash-mode ) was performed following the intravenous administration of contrast material. Scan Range: thoracic inlet to the diaphragm CT Dose-Length Product (DLP): 656 mGy*cm CT Dose Reduction Employed: Automated exposure control(AEC) and iterative recon CONTRAST: IV administration of 90 ml Omnipaque 350 Scan acquisition: uncomplicated For optimization of anatomic evaluation, advanced 3-D off-line postprocessing was performed on a dedicated workstation by the interpreting physician. STUDY LIMITATIONS: None. RESULT: LINES, TUBES and DEVICES: None PPM/ICD: ICD device over the left anterior chest wall, with transvenous leads extending to the RA and RV. There are epicardial wires in the left ventricle tunneled subcutaneously to the ICD. Lead Course: ZONE 1 (vein entry to confluence of left subclavian and SVC): - enters left subclavian vein - peripheral location, against wall > 1 cm length Assessment is limited due to metal artifact. ZONE 2 (SVC from confluence to RA): - peripheral location, against wall due to metal artifact - No SVC stenosis ZONE 3 (RA to lead tip): - central location within RA/RV Assessment is limited due to metal artifact Lead Tip Location: RA lead termination: medial wall of RA; ; assessment is limited by metal streak artifact RV lead termination: medial wall of RV; ; assessment is limited by metal streak artifact CHEST: Chest wall anatomy: unremarkable. LUNGS: unremarkable. MEDIASTINUM: unremarkable. PERICARDIUM: unremarkable CENTRAL PULMONARY ARTERY: normal dimensions, assessment is limited due to limited contrast enhancement CARDIAC CHAMBERS: LEFT VENTRICLE: normal size Right ventricle: normal size Left atrium: normal size. MUNA: normal Right atrium: normal size CENTRAL VENOUS and PULMONARY VENOUS RETURN: normal Coronary Sinus: normal size MITRAL and TRICUSPID VALVE: Assessment is limited in the current study no leaflet calcification, No annular calcification PULMONIC VALVE: Assessment is limited in the current study; no leaflet calcification CORONARY ANATOMY: Normal origin of the coronary arteries No definitive evidence of calcified atherosclerotic changes of the coronary arteries. However, the current study is not optimized for coronary assessment. AORTIC VALVE: appears trileaflet; no leaflet calcification AORTA: Size: Normal size thoracic aorta. Pathology: No aortic pathology. STJ: maintained Wall Changes: no wall calcification. Arch Branch Vessels: common origin of the innominate and left carotid artery. limited upper ABDOMEN: Postcholecystectomy. Prominent splenic vein BONES: Unremarkable Certified Professional Coder (topogram) images: No additional findings. IMPRESSION: 1. PPM/ICD device and lead position as described above. There are epicardial wires in the left ventricle tunneled to the ICD device. Strain Technician: PSCB Transcribe Date/Time: Dec 30 2022 12:22P Dictated by : WOLF SALCIDO MD This examination was interpreted and the report reviewed and electronically signed by: WOLF SALCIDO MD on Dec 30 2022 12:41PM EST [id number] Normal [facility] Comprehensive metabolic 2000 panelon 12-30-2022 Albumin [Mass/Vol] 4.6 g/dL Normal 3.9-4.9 [facility] Comment on above: Order Comment: Speci men Type: BLOOD SPECIMENOrdering Facility: [facility] Address: [address] [place] [address] Performed By: #### 2 4323-8 ####[facility] LABIA [id number] [address] OF [facility] ALP [Catalytic activity/Vol] 61 U/L Normal 34-123 [facility] Comment on above: Order Comment: Speci men Type: BLOOD SPECIMENOrdering Facility: [facility] Address: [address] [place] [address] Performed By: #### 2 4323-8 ####[facility] LABIA [id number] [address] STATES OF [facility] ALT [Catalytic activity/Vol] 12 U/L Normal 7-38 [facility] Comment on above: Order Comment: Speci men Type: BLOOD SPECIMENOrdering Facility: [facility] Address: [address] [address] Performed By: #### 2 4323-8 ####[facility] LABIA [id number] [id number], [place] [address] [place] Anion gap [Moles/Vol] 12 mmol/L Normal 9-18 [facility] Comment on above: Order Comment: Speci men Type: BLOOD SPECIMENOrdering Facility: [facility] Address: [address] [address] Performed By: #### 2 4323-8 ####[facility] LABCLIA [id number] [place] [address] [place] AST [Catalytic activity/Vol] 23 U/L Normal 13-35 [facility] Comment on above: Order Comment: Speci men Type: BLOOD SPECIMENOrdering Facility: [facility] Address: [address] Performed By: #### 2 4323-8 ####[facility] LABCLIA [id number] [place] [address] [place] Bilirubin [Mass/Vol] 0.5 mg/dL Normal 0.2-1.3 [facility] Comment on above: Order Comment: Speci men Type: BLOOD SPECIMENOrdering Facility: [facility] Address: [address] Performed By: #### 2 4323-8 ####[facility] LABCLIA [id number] [place] [address] [place] Calcium [Mass/Vol] 8.9 mg/dL Normal 8.5-10.2 [facility] Comment on above: Order Comment: Speci men Type: BLOOD SPECIMENOrdering Facility: [facility] Address: [address] Performed By: #### 2 4323-8 ####[facility] LABCLIA [id number] [place] [address] [place] Chloride [Moles/Vol] 102 mmol/L Normal 97-105 [facility] Comment on above: Order Comment: Speci men Type: BLOOD SPECIMENOrdering Facility: [facility] Address: [address] [id number] Performed By: #### 2 4323-8 ####[facility] LABCLIA [id number] [place] [address] [place] CO2 [Moles/Vol] 24 mmol/L Normal 22-30 [facility] Comment on above: Order Comment: Speci men Type: BLOOD SPECIMENOrdering Facility: [facility] Address: [address] [address] Performed By: #### 2 4323-8 ####[facility] LABCLIA [id number] [place] [address] [place] Creatinine [Mass/Vol] 0.73 mg/dL Normal 0.58-0.96 [facility] Comment on above: Order Comment: Speci men Type: BLOOD SPECIMENOrdering Facility: [facility] Address: [address] [place] [address] Performed By: #### 2 4323-8 ####[facility] LABCLIA [id number] [place] [address] [place] ESTIMATED GLOMERULAR FILTRATION RATE 107 mL/min/1.73m??? Normal >=60 [facility] Comment on above: Order Comment: Speci men Type: BLOOD SPECIMENOrdering Facility: [facility] Address: [address] [place] [address] Result Comment: Suzette mated Glomerular Filtration Rate (eGFR) is calculated using the 2020 CKD-EPI creatinine equation. This equation utilizes serum creatinine, sex, and age as parameters. The creatinine assay has traceable calibration to isotope dilution-mass spectrometry. Refer to KDIGO guidelines for clinical interpretation. In patients with unstable renal function, e.g. those with acute kidney injury, the eGFR may not accurately reflect actual GFR. Performed By: #### 2 4323-8 ####[facility] LABCLIA [id number] [place] [address] [place] Glucose [Mass/Vol] 87 mg/dL Normal 74-99 [facility] Comment on above: Order Comment: Speci men Type: BLOOD SPECIMENOrdering Facility: [facility] Address: [address] [place] [address] Result Comment: The [place] [employer] (ADA) provides guidance for cutoff values for fasting glucose and random glucose. The ADA defines fasting as no caloric intake for at least 8 hours. Fasting plasma glucose results between 100 to 125 mg/dL indicate increased risk for diabetes (prediabetes). Fasting plasma glucose results greater than or equal to 126 mg/dL meet the criteria for diagnosis of diabetes. In the absence of unequivocal hyperglycemia, results should be confirmed by repeat testing. In a patient with classic symptoms of hyperglycemia or hyperglycemic crisis, random plasma glucose results greater than or equal to 200 mg/dL meet the criteria for diagnosis of diabetes. Reference: Standards of Medical Care in Diabetes 2016, [place] [employer]. Diabetes Care. 2016.39(Suppl 1). Performed By: #### 2 4323-8 ####[facility] LABCLIA [id number] [place] [address] [place] Potassium [Moles/Vol] 4.3 mmol/L Normal 3.7-5.1 [facility] Comment on above: Order Comment: Speci men Type: BLOOD SPECIMENOrdering Facility: [facility] Address: [address] [address] Performed By: #### 2 4323-8 ####[facility] LABCLIA [id number] [place] [address] [place] Protein [Mass/Vol] 6.6 g/dL Normal 6.3-8.0 [facility] Comment on above: Order Comment: Speci men Type: BLOOD SPECIMENOrdering Facility: [facility] Address: [address] [address] Performed By: #### 2 4323-8 ####[facility] LABCLIA [id number] [place] [address] [place] Sodium [Moles/Vol] 138 mmol/L Normal 136-144 [facility] Comment on above: Order Comment: Speci men Type: BLOOD SPECIMENOrdering Facility: [facility] Address: [address] [id number] Performed By: #### 2 4323-8 ####[facility] LABCLIA [id number] [address] [place] Urea nitrogen [Mass/Vol] 9 mg/dL Normal 7-21 [facility] Comment on above: Order Comment: Taisha tam Type: BLOOD SPECIMENOrdering Facility: [facility] Address: [address] [id number] Performed By: #### 2 4323-8 ####[facility] LABIA [id number] [address] [place] ECHOon 12-30-2022 Echocardiography Echocardiography Rep ort: Transthoracic Echo [facility] LEXI-2 Date of service: 12/30/2022 2:24:14 PM MANAGER Ordering physician: DARLING MARTINEZ Indication: NICM, ICD Malfunction Technologist: Bernardino Horta Interpreting physician: Shakir Escobar MD PATIENT: Name: CARITO RIOS : 1980 Age: 42 years Gender: F History of heart failure with hospitalization and cardiomyopathy. Previous cardiovascular interventions: DROSS PULLER-D (2008, 09/21/2022) Primary rhythm: AV Paced. Height: 175.30 cm BSA: 2.09 m Weight: 89.81 kg BMI: 29.2 kg/m Heart rate 58 bpm Blood pressure 113/73 mmHg Color Doppler was utilized to interrogate the cardiac valves assessed and spectral Doppler was utilized to determine the flow velocities and pressure gradients reported in this exam. MEASUREMENTS: Value Indexed Normal Max aortic dimension 3.3 cm Ao < 3.8 Left atrial volume 50 ml (biplane A-L) 24 ml/m Rajni <= 34 LV ID (diastole) 5.4 cm (2D) 2.61 cm/m LV ID (systole) 3.6 cm (2D) 1.75 cm/m IVS, leaflet tips 0.7 cm (2D) Posterior wall thickness 1.1 cm (2D) Left ventricular mass 186 g (2D) 89 g/m LV stroke volume 89 ml (2D biplane) LV end diastolic volume 159 ml (2D biplane) 76.0 ml/m 29<=EDVi<62 LV end systolic volume 70 ml (2D biplane) 33.6 ml/m Ejection Fraction 56 % (2D biplane) EF > 54 FINDINGS: LEFT VENTRICLE The left ventricle is dilated. Left ventricular systolic function is normal. Left ventricular diastolic function was not evaluated due to pacing. Mitral annular lateral E/e': 5.4. Mitral annular septal E/e': 10.7. Wall Motion: All scored segments are normal. RIGHT VENTRICLE The right ventricle is normal in size. Pacer wires are noted in the right ventricle. Right ventricular systolic function is normal. RV systolic tissue Doppler velocity is 11.4 cm/s. Tricuspid annular displacement is 2.0 cm. Estimated right ventricular systolic pressure is not reported due to an insufficient tricuspid regurgitation signal. Estimated right atrial pressure is not included as the IVC was not seen. LEFT ATRIUM The left atrial cavity is normal in size. Pulmonary Veins: The pulmonary venous pattern showed normal systolic flow. RIGHT ATRIUM The right atrial cavity is normal in size. Pacer wires are noted in the right atrium. MITRAL VALVE There is trace mitral valve regurgitation. There is no thickening. The pressure half time is 104 msec. The peak mitral E/A ratio is 0.90. The average mitral E/e' ratio is 8.0. The mitral flow deceleration time is 357 msec. TRICUSPID VALVE There is trace tricuspid valve regurgitation. There is no thickening. AORTIC VALVE There is trace aortic valve regurgitation. Tricuspid aortic valve. There is no thickening. The peak gradient is 6 mmHg (peak velocity = 127.0 cm/s). PULMONIC VALVE There is trace pulmonic valve regurgitation. There is no thickening. AORTA The visualized aorta is normal in size. Measurements - Mid ascending aorta 3.3 cm. PULMONARY ARTERIES The pulmonary arteries are unseen or not interrogated. INTERVENTRICULAR SEPTUM There is abnormal motion of the interventricular septum secondary to a pacemaker. PERICARDIUM There is no pericardial effusion. There is an epicardial fat pad. CONCLUSIONS: - Exam indication: NICM, ICD Malfunction - The left ventricle is dilated. Left ventricular systolic function is normal. EF = 56 5% (2D biplane) Left ventricular diastolic function was not evaluated due to pacing. - The right ventricle is normal in size. Right ventricular systolic function is normal. - Estimated right ventricular systolic pressure is not reported due to an insufficient tricuspid regurgitation signal. Estimated right atrial pressure is not included as the IVC was not seen. - There are no significant valvular abnormalities. - The patient has not had a prior CC echocardiographic exam for comparison. * * * Final * * * [facility] [facility] : [id number] amicsSISUID Normal [facility] HISTORY PHYSICALon HISTORY PHYSICAL HNO ID: [id number] Author: Milo Cordova MD Service: Cardiac Surgery Author Type: Fellow Type: HANDP Filed: 12/30/2022 1:16 PM Note Text: [facility] HISTORY AND PHYSICIAL Carito Rios [id number] ATTENDING PHYSICIAN: Siomara Dutton MD CHIEF COMPLAINT: HPI: This is a 42 year old female who presents for a preoperative evaluation. She is scheduled for a pacemaker lead extraction in OR 79 on 01/01/2023. She has a history of NICM (iman LVEF reportedly 15% 2008), HF, s/p DROSS PULLER-D (2008), s/p multiple generator changes (4) most recent generator change 09/21/2022, and depression. She had recovery of her EF to 50-55% in 2014. Last Echo 08/31/22 EF=45-50%. On 12/05/22 she received an inappropriate shock and her ICD therapies were turned off. PAST MEDICAL HISTORY: PAST MEDICAL HISTORY Diagnosis Date HF (heart failure) (HCC) NICM (nonischemic cardiomyopathy) (HCC) PAST SURGICAL HISTORY: PAST SURGICAL HISTORY Procedure Laterality Date PAST SURGICAL HISTORY OF 2008 DROSS PULLER-D PAST SURGICAL HISTORY OF multiple device surgeries FAMILY HISTORY: FAMILY HISTORY Problem Relation Age of Onset Coronary Artery Disease Mother Hypertension Mother Stroke Mother Diabetes Mother Coronary Artery Disease Father Stroke Father Diabetes Sister Diabetes Brother SOCIAL HISTORY: Social History Tobacco Use Smoking status: Every Day Packs/day: 1.00 Years: 20.00 Total pack years: 20.00 Types: Cigarettes Smokeless tobacco: Never Substance Use Topics Alcohol use: Not Currently Drug use: Never MEDICATIONS: Prior to Admission Medications: iv contrast (will be provided with radiology test)CT Cardiac - No IV access, insert saline lock prior to the sedation, infusion, injection for imaging exam. Discontinue saline lock post exam. If Pt. has a central line or IVAD, may access for administration according to line specific nursing protocol. Once exam is complete flush line and de-access according to line specific nursing protocol in the CT contrast administration guidelines link.Disp: 1 EachRfl: 0 ALPRAZolam (XANAX) 1 mg tabletTake 1 mg by mouth three times daily as needed.Disp: Rfl: amitriptyline (ELAVIL) 25 mg tabletTAKE 1 TABLET BY MOUTH EVERY DAY AT BEDTIME FOR 30 DAYSDisp: Rfl: aspirin, enteric coated (ASPIRIN, ENTERIC COATED) 81 mg EC tabletq 24 HR.Disp: Rfl: atorvastatin (LIPITOR) 80 mg tabletTake 80 mg by mouth.Disp: Rfl: carvedilol (COREG) 6.25 mg tabletTake 6.25 mg by mouth twice daily.Disp: Rfl: citalopram (CELEXA) 20 mg tabletTake 20 mg by mouth once daily.Disp: Rfl: gabapentin (NEURONTIN) 300 mg capsuleTAKE 1 CAP AT BEDTIME ON DAY 1, THEN 1 CAP TWICE DAILY ON DAY 2, THEN 1 CAP 3 TIMES A DAYDisp: Rfl: losartan (COZAAR) 25 mg tabletTake 25 mg by mouth once daily.Disp: Rfl: OLANZapine (ZYPREXA) 5 mg tabletTake 5 mg by mouth once daily.Disp: Rfl: spironolactone (ALDACTONE) 25 mg tabletTake 12.5 mg by mouth once daily.Disp: Rfl: topiramate (TOPAMAX) 50 mg tabletTake 50 mg by mouth twice daily.Disp: Rfl: Current Facility-Administered Medications Medication Dose Route Frequency perflutren lipid microspheres 1.3 mL in NaCl (PF) 0.9% 10 mL injection (DEFINITY) INTRAVENOUS DIRECTED PRN sodium chloride 0.9 % (flush) 10 mL (BD POSIFLUSH) 10 mL INTRAVENOUS DIRECTED PRN ALLERGIES: ALLERGIES Allergen Reactions Amoxicillin Rash Cefoxitin Rash Sulfa (Sulfonamide * Rash Sulfamethoxazole-Tr* Rash Vancomycin Rash Lisinopril Cough Madi Inhibitors Other: See Comments, Cough COMPLETE REVIEW OF SYSTEMS: All other systems reviewed and negative PHYSICAL EXAM: There were no vitals taken for this visit. General: Well developed and well nourished appearance. No acute distress. Skin: No rash on chest, arms or legs. Warm, dry. Head/Eyes: Sclera clear, normal conjunctiva. EOMI. Mouth/Pharynx: Teeth: Fair dentition. No lesions. Neck: No JVD. Supple. Lungs: Normal respiratory effort. Clear lungs without rhonchi, rales, wheezing. Breasts: Deferred Heart: Normal PMI. No lifts or thrills. Regular rate and rhythm. Normal S1, S2. No S3. No S4. No murmurs. No rubs. Peripheral Vascular/Arteries: Carotid pulse normal without bruit. No abdominal bruits. No femoral bruits or hematoma. DP/Radial pulses normal. Abdomen: Soft abdomen, nontender, nondistended without mass. No hepatosplenomegaly. Normal bowel sounds. Musculoskeletal: No kyphoscoliosis. No joint deformities. Extremities: No clubbing or cyanosis. No edema. Warm digits. Neurologic/Psychiatric: Oriented to person, place, time. Normal affect. No gross focal neurologic deficits. DATA: Laboratory: Recent Labs 12/30/22 1045 WBC 5.67 HB 14.5 HCT 41.2 PLT 208 Recent Labs 12/30/22 1120 CREAT 0.80 Recent Labs 12/30/22 1045 INR 1.0 EKG: most recent image reviewed TELE: most recent recordings reviewed CXR: most recent image (more content not included)... Normal [facility] PT panel Coag (PPP)on 2022 INR Coag (PPP) [Relative time] 1.0 {INR} Normal 0.9-1.3 [facility] Comment on above: Order Comment: Speci men Type: BLOOD SPECIMENOrdering Facility: [facility] Address: [address] [place] [id number] Result Comment: Cecilia min K Antagonist (VKA) Therapeutic Range: INR 2 to 3 (Target INR of 2.5) Note: For patients treated with VKA drugs, such as warfarin, the [place] [employer] 2012 Guideline recommends a therapeutic INR range of 2 to 3 (target INR of 2.5). This recommendation includes high-risk patients with antiphospholipid syndrome with previous arterial or venous thromboembolism, current-generation mechanical or bioprosthetic aortic heart valve replacement. Note: Patients with mechanical aortic valve replacement and additional risk factors for thromboembolic events (atrial fibrillation, previous thromboembolism, LV dysfunction, hypercoagulable conditions) or an older generation mechanical AVR (i.e., ball in-Cage) or any mechanical MVR should have a INR therapeutic range of 2.5 to 3.5 (target INR of 3). Inga GH, et al. Chest 2012, 141:7S-47S Nelson RA, et al. [facility] 2017, 70: 252-289 Performed By: #### 3 4528-0 ####[facility] LABCLIA [id number] [address] OF [place] PT Coag (PPP) [Time] 10.3 s Normal 9.7-13.0 [facility] Comment on above: Order Comment: Speci men Type: BLOOD SPECIMENOrdering Facility: [facility] Address: [address] [place] [address] Performed By: #### 3 4528-0 ####[facility] LABIA [id number] [address] [place] TYPE AND SCREEN,30 DAYon ABO O Normal [facility] Comment on above: Order Comment: Taisha turcios Type: BLOOD SPECIMENOrdering Facility: [facility] Address: [address] [place] [address] Performed By: #### T SCR30 ####[facility] BLOOD BANKCLIA [id number] [place] [address] [place] HISTORICAL AB SCR STATUS Negative Normal [facility] Comment on above: Order Comment: Taisha turcios Type: BLOOD SPECIMENOrdering Facility: [facility] Address: [address] [place] [address] Performed By: #### T SCR30 ####[facility] BLOOD BANKCLIA [id number] [address] [place] Rh Nom (Bld) Positive Normal [facility] Comment on above: Order Comment: Speci men Type: BLOOD SPECIMENOrdering Facility: [facility] Address: [address] [phone] Performed By: #### T SCR30 ####[facility] BLOOD BANKCLIA [id number] [id number] [address] [place] XR CHEST 2V FRONTAL/LATon XR CHEST 2V FRONTAL/LAT * * *Final Report* * * DATE OF EXAM: Dec 30 2022 10:03AM JIX [id number] - XR CHEST 2V FRONTAL/LAT / PROCEDURE REASON: Failure of implantable cardioverter-defibrillator (ICD) lead, initial encounter * * * * Physician Interpretation * * * * EXAMINATION: CHEST RADIOGRAPH (2 VIEW FRONTAL and LATERAL) CLINICAL HISTORY: Failure of implantable cardioverter-defibrillator (ICD) lead, initial encounter MQ: [id number]_6 EXAM DATE/TIME: 12/30/2022 10:03 AM COMPARISON: No relevant prior studies available. RESULT: Lines, tubes, and devices: Left anterior chest wall ICD, transvenous leads tips project over the right atrium and right ventricle, 2 epicardial wires along the left ventricle tunneled subcutaneously to the ICD device. Lungs and pleura: No consolidation, signs of edema, pleural effusion or pneumothorax Cardiomediastinal silhouette: Normal cardiomediastinal silhouette. Bones and soft tissues: Minimal spine degenerative changes IMPRESSION: See result Strain Technician: WES Transcribe Date/Time: Dec 30 2022 1:46P Dictated by : CHRISTINA DORSEY MD This examination was interpreted and the report reviewed and electronically signed by: CHRISTINA DORSEY MD on Dec 30 2022 1:50PM EST [id number] Normal [facility] CNPShabnam 12-24-2022 LIZET Telephone (CARDMN) TOVACARITO Yeimi ([id number]) 1980 F Date Time Provider Department 12/24/22 NETO DEMARCO During your visit today, we recorded the following information about you: Meka Garcia 12/24/2022 6:49 AM Signed Outside medical records scanned into shared [address]. Patient scheduled for procedure with Dr. Darling Martinez on January 01, 2023. Sharon Tanner RN 12/25/2022 9:[address] Demarco reviewed tracings from [employer]. Mostly noise/artifact. No changes prior to procedure next week. Left detailed message on patient VM. Sharon Tanner RN Allergies As of Date: 12/24/2022 Noted Allergy Reaction AMOXICILLIN 05/01/2009 2 - Rash CEFOXITIN 05/01/2009 2 - Rash SULFA (SULFONAMIDE ANTIBIOTICS) 03/24/2013 2 - Rash SULFAMETHOXAZOLE-TRIMETHOPRIM 08/11/2012 2 - Rash VANCOMYCIN 04/28/2022 2 - Rash LISINOPRIL 12/11/2022 3 - Cough MADI INHIBITORS 02/21/2013 14 - Other: See Comments 3 - Cough Date Reviewed: 12/11/2022 Reviewed by: Neto Demarco MD - Fully Assessed Reason for Visit: Received Outside Medical Records [[id number]] Prescriptions as of 12/25/2022 - iv contrast (will be provided with radiology test) CT Cardiac - No IV access, insert saline lock prior to the sedation, infusion, injection for imaging exam. Discontinue saline lock post exam. If Pt. has a central line or IVAD, may access for administration according to line specific nursing protocol. Once exam is complete flush line and de-access according to line specific nursing protocol in the CT contrast administration guidelines link. - ALPRAZolam (XANAX) 1 mg tablet Take 1 mg by mouth three times daily as needed. - amitriptyline (ELAVIL) 25 mg tablet TAKE 1 TABLET BY MOUTH EVERY DAY AT BEDTIME FOR 30 DAYS - aspirin, enteric coated (ASPIRIN, ENTERIC COATED) 81 mg EC tablet q 24 HR. - atorvastatin (LIPITOR) 80 mg tablet Take 80 mg by mouth. - carvedilol (COREG) 6.25 mg tablet Take 6.25 mg by mouth twice daily. - citalopram (CELEXA) 20 mg tablet Take 20 mg by mouth once daily. - gabapentin (NEURONTIN) 300 mg capsule TAKE 1 CAP AT BEDTIME ON DAY 1, THEN 1 CAP TWICE DAILY ON DAY 2, THEN 1 CAP 3 TIMES A DAY - losartan (COZAAR) 25 mg tablet Take 25 mg by mouth once daily. - OLANZapine (ZYPREXA) 5 mg tablet Take 5 mg by mouth once daily. - spironolactone (ALDACTONE) 25 mg tablet Take 12.5 mg by mouth once daily. - topiramate (TOPAMAX) 50 mg tablet Take 50 mg by mouth twice daily. Facility-Administered Medications as of 12/25/2022 - perflutren lipid microspheres 1.3 mL in NaCl (PF) 0.9% 10 mL injection (DEFINITY) - sodium chloride 0.9 % (flush) 10 mL (BD POSIFLUSH) Problem List As Of Date: 12/24/2022 (None) Encounter Status:Closed by SHARON TANNER on 12/25/22 [facility] [place] [facility]2022 [facility] CARITO RIOS ([id number]) 1980 F Date Time Provider Department 12/23/22 NETO DEMARCO During your visit today, we recorded the following information about you: Mary Muniz 12/23/2022 8:18 AM Signed December 23, 2022 Patient Contact Number: [phone] (home) [phone] (cell) Patient last seen within the last year: Yes Reason for Call: Device Issue: PLEASE ROUTE TO DEVICE CLINIC POOL Patient called in and states the monitor has been alarming (at work almost 25 times during the day). She contacted the monitor company and they advised that the machine is fine so the alarm is due to her heart. Please contact [facility]. Thank you, Mary Muniz, Admin Marianna Wong 12/23/2022 1:30 PM Signed Aaron with [employer] is returning a call from [phone]. For Sharon. Marianna Wong Allergies As of Date: 12/23/2022 Noted Allergy Reaction AMOXICILLIN 05/01/2009 2 - Rash CEFOXITIN 05/01/2009 2 - Rash SULFA (SULFONAMIDE ANTIBIOTICS) 03/24/2013 2 - Rash SULFAMETHOXAZOLE-TRIMETHOPRIM 08/11/2012 2 - Rash VANCOMYCIN 04/28/2022 2 - Rash LISINOPRIL 12/11/2022 3 - Cough MADI INHIBITORS 02/21/2013 14 - Other: See Comments 3 - Cough Date Reviewed: 12/11/2022 Reviewed by: Neto Demarco MD - Fully Assessed Reason for Visit: MONITOR [Other] Cmt: ALARM Prescriptions as of 12/23/2022 - ALPRAZolam (XANAX) 1 mg tablet Take 1 mg by mouth three times daily as needed. - amitriptyline (ELAVIL) 25 mg tablet TAKE 1 TABLET BY MOUTH EVERY DAY AT BEDTIME FOR 30 DAYS - aspirin, enteric coated (ASPIRIN, ENTERIC COATED) 81 mg EC tablet q 24 HR. - atorvastatin (LIPITOR) 80 mg tablet Take 80 mg by mouth. - carvedilol (COREG) 6.25 mg tablet Take 6.25 mg by mouth twice daily. - citalopram (CELEXA) 20 mg tablet Take 20 mg by mouth once daily. - gabapentin (NEURONTIN) 300 mg capsule TAKE 1 CAP AT BEDTIME ON DAY 1, THEN 1 CAP TWICE DAILY ON DAY 2, THEN 1 CAP 3 TIMES A DAY - losartan (COZAAR) 25 mg tablet Take 25 mg by mouth once daily. - OLANZapine (ZYPREXA) 5 mg tablet Take 5 mg by mouth once daily. - spironolactone (ALDACTONE) 25 mg tablet Take 12.5 mg by mouth once daily. - topiramate (TOPAMAX) 50 mg tablet Take 50 mg by mouth twice daily. Problem List As Of Date: 12/23/2022 (None) Encounter Status:Closed by MARIANNA WONG [facility] TOVACARITO ([id number]) 1980 F Date Time Provider Department 12/23/22 NETO DEMARCOCA During your visit today, we recorded the following information about you: Ami Velazquez RN 12/23/2022 1:[address] Demarco, patient needs to have OR 79 appointment rescheduled to a sooner date with one of his colleagues due to getting multiple alarms per day from her [employer]. The new date of 01-01-[address] Martinez was offered AND accepted by patient. Needs all OR 79 appointments as per protocol. Allergies As of Date: 12/23/2022 Noted Allergy Reaction AMOXICILLIN 05/01/2009 2 - Rash CEFOXITIN 05/01/2009 2 - Rash SULFA (SULFONAMIDE ANTIBIOTICS) 03/24/2013 2 - Rash SULFAMETHOXAZOLE-TRIMETHOPRIM 08/11/2012 2 - Rash VANCOMYCIN 04/28/2022 2 - Rash LISINOPRIL 12/11/2022 3 - Cough MADI INHIBITORS 02/21/2013 14 - Other: See Comments 3 - Cough Date Reviewed: 12/11/2022 Reviewed by: Neto Demarco MD - Fully Assessed Reason for Visit: Reschedule [Other] Cmt: OR 79 case Prescriptions as of 12/23/2022 - ALPRAZolam (XANAX) 1 mg tablet Take 1 mg by mouth three times daily as needed. - amitriptyline (ELAVIL) 25 mg tablet TAKE 1 TABLET BY MOUTH EVERY DAY AT BEDTIME FOR 30 DAYS - aspirin, enteric coated (ASPIRIN, ENTERIC COATED) 81 mg EC tablet q 24 HR. - atorvastatin (LIPITOR) 80 mg tablet Take 80 mg by mouth. - carvedilol (COREG) 6.25 mg tablet Take 6.25 mg by mouth twice daily. - citalopram (CELEXA) 20 mg tablet Take 20 mg by mouth once daily. - gabapentin (NEURONTIN) 300 mg capsule TAKE 1 CAP AT BEDTIME ON DAY 1, THEN 1 CAP TWICE DAILY ON DAY 2, THEN 1 CAP 3 TIMES A DAY - losartan (COZAAR) 25 mg tablet Take 25 mg by mouth once daily. - OLANZapine (ZYPREXA) 5 mg tablet Take 5 mg by mouth once daily. - spironolactone (ALDACTONE) 25 mg tablet Take 12.5 mg by mouth once daily. - topiramate (TOPAMAX) 50 mg tablet Take 50 mg by mouth twice daily. Problem List As Of Date: 12/23/2022 (None) Encounter Status:Closed by AMI VELAZQUEZ RN on 12/23/22 [facility] CARIT[facility] RI[facility] ([id number]) 1980 F Date Time Provider Department 12/14/22 NETO DEMARCO [facility] During your visit today, we recorded the following information about you: Irena Roth RN 12/14/2022 2:11 PM Signed ----- Message from Neto Demarco MD sent at 12/11/2022 4:16 PM EDT ----- EP LAB OR EXTRACTION EPS Lab REQUEST: OR 79 Lead Extraction PATIENT NAME: Carito Rios REQUESTED BY: Neto Demarco MD Phone: N/A Fax: REQUESTING PHYSICIAN: Neto Demarco M.D. PROCEDURE PHYSICIAN: Neto Demarco M.D. PROCEDURE REQUESTED: OR 79 Extraction PATIENT LOCATION: outpatient DX FOR PROCEDURE: Lead dysfunction DEVICE:[place] MEDICATIONS:none (List medications to be held AND how many days prior to procedure) OUTSIDE RECORDS: none enter date uploaded to [employer] AND scanned AMBULATORY TESTING: OPD consult w/EP Doctor if not seen within 30 days of procedure date. OPD consult w/Cardiothoracic doctor: TBA Anesthesia Clearance Device check EKG (Last EKG > 30 days) Chest X-ray (Last CXR > 1 [address]) [address] Scan w IVCON Echo (Last echo > 2 years) Labs (If > 30 days: CBC, CMP, 30 day type AND screen, confirm blood type, PT/INR) COMMENTS: WCD, Broken ICD lead, needs extraction and replacement. Irena Roth RN 12/14/2022 2:17 PM Signed Patient offered and accepted date of 01/28/[address] Demarco. Please schedule pre-op appointments per OR 79 protocol. Irena Roth RN Allergies As of Date: 12/14/2022 Noted Allergy Reaction AMOXICILLIN 05/01/2009 2 - Rash CEFOXITIN 05/01/2009 2 - Rash SULFA (SULFONAMIDE ANTIBIOTICS) 03/24/2013 2 - Rash SULFAMETHOXAZOLE-TRIMETHOPRIM 08/11/2012 2 - Rash VANCOMYCIN 04/28/2022 2 - Rash LISINOPRIL 12/11/2022 3 - Cough MADI INHIBITORS 02/21/2013 14 - Other: See Comments 3 - Cough Date Reviewed: 12/11/2022 Reviewed by: Neto Demarco MD - Fully Assessed Reason for Visit: Schedule Surgery [1330] Cmt: EPS- Lead Extraction and Reimplantation Primary Visit Diagnosis:Failure of implantable cardioverter-defibrillator (ICD) lead, initial encounter [T82.110A] Order(s):BASIC METABOLIC PNL [SQBMP] Order #: [id number] FUTURE CBC [SQCBC] Order #: [id number] FUTURE TYPE AND SCREEN,30 DAY [FACTXY49] Order #: [id number] FUTURE CONFIRM BLOOD TYPE [SQCONABO] Order #: [id number] FUTURE XR CHEST 2V FRONTAL/LAT [4764826] Order #: [id number] FUTURE Prescriptions as of 12/14/2022 - ALPRAZolam (XANAX) 1 mg tablet Take 1 mg by mouth three times daily as needed. - amitriptyline (ELAVIL) 25 mg tablet TAKE 1 TABLET BY MOUTH EVERY DAY AT BEDTIME FOR 30 DAYS - aspirin, enteric coated (ASPIRIN, ENTERIC COATED) 81 mg EC tablet q 24 HR. - atorvastatin (LIPITOR) 80 mg tablet Take 80 mg by mouth. - carvedilol (COREG) 6.25 mg tablet Take 6.25 mg by mouth twice daily. - citalopram (CELEXA) 20 mg tablet Take 20 mg by mouth once daily. - gabapentin (NEURONTIN) 300 mg capsule TAKE 1 CAP AT BEDTIME ON DAY 1, THEN 1 CAP TWICE DAILY ON DAY 2, THEN 1 CAP 3 TIMES A DAY - losartan (COZAAR) 25 mg tablet Take 25 mg by mouth once daily. - OLANZapine (ZYPREXA) 5 mg tablet Take 5 mg by mouth once daily. - spironolactone (ALDACTONE) 25 mg tablet Take 12.5 mg by mouth once daily. - topiramate (TOPAMAX) 50 mg tablet Take 50 mg by mouth twice daily. Problem List As Of Date: 12/14/2022 (None) Encounter Status:Closed by IRENA ROTH on 12/14/22 [facility] CNOVon 12-11-2022 CNOV Office Visit (CARDMN ) CARITO RIOS ([id number]) 1980 F Date Time Provider Department 12/11/22 2:45 PM NETO DEMARCO During your visit today, we recorded the following information about you: Pulse Blood pressure Weight Height 60/minute 111/70 89.8 kg 1.753 m Neto Demarco MD 12/11/2022 4:12 PM Pending Sale To [facility] Department of Cardiovascular Medicine SECTION OF CARDIAC PACING and ELECTROPHYSIOLOGY OUTPATIENT VISIT DATE December 11, 2022 OUTPATIENT VISIT TYPE NEW PRIMARY CARE PHYSICIAN: Rock Dunbar MD [place], [place] Can Cleaner Jass June MD [place], [place] CHIEF COMPLAINT: BiV ICD, ICD lead failure HISTORY OF PRESENT ILLNESS: Carito Rios is a 42 y/o female who presents for evaluation for lead malfunction. She has a history of NICM (iman LVEF reportedly 15% 2008), HF, s/p DROSS PULLER-D (2008), s/p multiple generator changes (4) most recent generator change 09/21/2022, and depression. She had recovery of her EF to 50-55% in 2014. Last Echo 08/31/22 EF=45-50%. She reports she was on amiodarone in the past for an irregular heart beat. She has not been on for the last 2 years. She presented to local ED 11/22/22 for device alarm and was found to have RV lead noise with oversensing. [place] to be likely due to ICD coil fracture. She was sent home with plant for follow up. On 12/05/22 she received an inappropriate shock and her ICD therapies were turned off. She reports she had never been shocked prior to this. She reports she has been feeling very bad for weeks. She is overly fatigued and sluggish. She feels like there is a weight on her chest. She is back to having shortness of breath with exertion. She endorses lightheadedness with positional changes. She reports her device site has been tender and felt tight since her generator change. She had increased swelling after this change. She denies palpitations or syncope. PAST MEDICAL HISTORY Diagnosis Date HF (heart failure) ([facility]) NICM (nonischemic cardiomyopathy) ([facility]) PAST SURGICAL HISTORY Procedure Laterality Date PAST SURGICAL HISTORY OF 2008 DROSS PULLER-D PAST SURGICAL HISTORY OF multiple device surgeries SOCIAL HISTORY Social History Tobacco Use Smoking status: Every Day Packs/day: 1.00 Years: 20.00 Pack years: 20.00 Types: Cigarettes Smokeless tobacco: Never Substance Use Topics Alcohol use: Not Currently Drug use: Never FAMILY HISTORY Problem Relation Age of Onset Coronary Artery Disease Mother Hypertension Mother Stroke Mother Diabetes Mother Coronary Artery Disease Father Stroke Father Diabetes Sister Diabetes Brother ALLERGIES: ALLERGIES Allergen Reactions Amoxicillin Rash Cefoxitin Rash Sulfa (Sulfonamide * Rash Sulfamethoxazole-Tr* Rash Vancomycin Rash Lisinopril Cough Madi Inhibitors Other: See Comments, Cough MEDICATIONS: ALPRAZolam (XANAX) 1 mg tablet Take 1 mg by mouth three times daily as needed. amitriptyline (ELAVIL) 25 mg tablet TAKE 1 TABLET BY MOUTH EVERY DAY AT BEDTIME FOR 30 DAYS aspirin, enteric coated (ASPIRIN, ENTERIC COATED) 81 mg EC tablet q 24 HR. atorvastatin (LIPITOR) 80 mg tablet Take 80 mg by mouth. carvedilol (COREG) 6.25 mg tablet Take 6.25 mg by mouth twice daily. citalopram (CELEXA) 20 mg tablet Take 20 mg by mouth once daily. gabapentin (NEURONTIN) 300 mg capsule TAKE 1 CAP AT BEDTIME ON DAY 1, THEN 1 CAP TWICE DAILY ON DAY 2, THEN 1 CAP 3 TIMES A DAY losartan (COZAAR) 25 mg tablet Take 25 mg by mouth once daily. OLANZapine (ZYPREXA) 5 mg tablet Take 5 mg by mouth once daily. spironolactone (ALDACTONE) 25 mg tablet Take 12.5 mg by mouth once daily. topiramate (TOPAMAX) 50 mg tablet Take 50 mg by mouth twice daily. REVIEW OF SYSTEMS: General, constitutional: Weight loss or gain- No, Fever or chills-No, Weakness-No, Trouble sleeping-No. Head, Eyes, Ears, Mouth: Headache, head injury-yes, Glasses or contact lenses-yes, Pain-No, Impaired vision-No, Decreased hearing-No, Ringing in ears-No, Nose bleeds-No, Dental difficulties-No, Bleeding gums-No, Dentures-yes. Neck: Swelling-No, Pain-No, Stiffness-No. Respiratory: Cough-No, Spitting up blood-No, Shortness of breath-yes, Wheezing or asthma-No. Musculoskeletal: Muscle or joint pain or stiffness-No, Joint swelling-No. Gastrointestinal: Difficulty swallowing-No, Heartburn-No, Change in bowel habits-No, Blood in stool, Dark black stools-No. Neurological/Psychiatric: Weakness, paralysis-No, Numbness-No, Tingling-No, Tremor-No, Nervousness or anxiety-yes, Depressed mood-yes, Memory loss-No. Skin: Rash-No, Itching-No. Hematological: Easy bruising-No, Easy bleeding-No. Endocrine: Heat or cold intolerance-No, Excessive sweating-No, Frequent urination-No, Frequent thirst-No. Sharon Tanner RN I have personally obtained or confirmed the wor (more content not included)... Normal [facility] ECG COMPLETEon 12-11-2022 ECG COMPLETE Ventricular Rate : 6 0 BPM Atrial Rate : 60 BPM P-R Interval : 146 ms QRS Duration : 154 ms Q-T Interval : 460 ms QTC Calculation(Bazett) : 460 ms Calculated P Bimble : 108 degrees Calculated R Bimble : -125 degrees Calculated T Bimble : 37 degrees AV DUAL-PACED RHYTHM BIVENTRICULAR PACEMAKER DETECTED ABNORMAL ECG Confirmed by MD GREWAL TAMANNA ([id number]) on 12/14/2022 4:37:01 PM NAME : CARITO RIOS PID : [id number] : 1980 Gender : Female Race : ORD : [id number] Procedure Date : Dec 11 2022 14:12:29 Edit Date : Dec 14 2022 16:37:03 Diagnosis: AV DUAL-PACED RHYTHM BIVENTRICULAR PACEMAKER DETECTED ABNORMAL ECG Confirmed by MD GREWAL TAMANNA ([id number]) on 12/14/2022 4:37:01 PM Test Reason : Location : 314 : J14 J1-4 Overread By : MD GREWAL TAMANNA Edited By : MD GREWAL TAMANNA Referred By : , Acquired by : SEB SCHULZ [facility] ICD CLINIC CHECKon 3 AV Delay Adaptive Paced Minimum (ms) [address] [facility] AV Delay Adaptive Rate Maximum (bpm) 130 {beats}/min [facility] AV Delay Adaptive Rate Minimum (bpm) 90 {beats}/min [facility] AV Delay Adaptive Sensed Minimum (ms) [address] [facility] AV Delay Adaptive Status Medium [facility] AV Delay Paced (ms) [address] [facility] AV Delay Sensed (ms) [address] [facility] Ricki LV Pacing Amplitude (volts) 3.[address] [facility] Ricki LV Pacing Polarity BI [facility] Ricki LV Pacing Pulse Width (ms) 0.[address] [facility] Ricki RA Pacing Amplitude (volts) 2.[address] [facility] Ricki RA Pacing Polarity BI [facility] Ricki RA Pacing Pulse Width (ms) 0.[address] [facility] Ricki RA Sensing Amplitude (mvolts) 0.[address] [facility] Ricki RA Sensing Blanking Period (ms) [address] [facility] Ricki RA Sensing Polarity BI [facility] Ricki RA Sensing Refractory Period (ms) [address] [facility] Ricki RV Pacing Amplitude (volts) 2.[address] [facility] Ricki RV Pacing Polarity BI [facility] Ricki RV Pacing Pulse Width (ms) 0.[address] [facility] Ricki RV Sensing Amplitude (mvolts) 0.[address] [facility] Ricki RV Sensing Blanking Period (ms) [address] [facility] Ricki RV Sensing Polarity BI [facility] ICD FastVT DetectionStatus DISABLED [facility] ICD-AMS EPISODES 170 {beats}/min [facility] ICD-ATP Episodes (Vent) [address] [facility] ICD-Ricki RV Sensing Refractory Period (ms) [address] [facility] ICD-Device Mfg STJ [facility] ICD-FALLBACKRATE_B PM 70 {beats}/min [facility] ICD-Hysteresis Rate Off [facility] ICD-LEADIMPEDANCEA TRIAL 325.[address] [facility] ICD-Percent Pacing (Atrial) 30.0 % [facility] ICD-Percent Pacing (Vent) 90.0 % [facility] ICD-PMT Intervention Atrial Pace [facility] ICD-PVC Intervention Off [facility] ICD-Rate Modulation Acceleration Reaction Fast [facility] ICD-Rate Modulation Deceleration Medium [facility] ICD-Rate Modulation Nye [address] [facility] ICD-Rate Modulation Threshold Auto (+0.0) [facility] ICD-Rhythm Sinus Rhythm [facility] ICD-Shocks Aborted (Vent) [address] [facility] [id number] ED [address] [facility] ICD-SHOCKSABORTED 0 [facility] ICD-SHOCKSDELIVERE DVENTRICULAR [address] [facility] ICD-Ventricular Fibrillation [address] [facility] Implant Date 09/21/[address] [facility] Implant Date 03/04/[address] [facility] Lead Impedance (LV) 187.[address] [facility] Lead Impedance (RV) 362.[address] [facility] Lead Impedance High Voltage 74.[address] [facility] Lead1 Mfg STJ [facility] Lead2 Mfg STJ [facility] Lead3 Mfg STJ [facility] Location RA [facility] Location RV [facility] Location LV [facility] Lower Rate (bpm) 60 {beats}/min [facility] Max Sensor Rate (bpm) 130 {beats}/min [facility] [id number]_ZON E_DETECTIONS_STATU S DISABLED [facility] Model 3357-40C Unify Assura [facility] Model 1888TC Tendril ST Optim C [facility] Model [address] [facility] Model [id number] [facility] Pacemaker Dependent? NO [facility] Pacing Mode DDDR [facility] Serial Number [id number] [facility] Serial Number [id number] [facility] Serial Number [id number] [facility] Serial Number [id number] [facility] Test Charge Time 7.875 [facility] Thresh LV Capture Amplitude (volts) [address] [facility] Thresh LV Capture Duration (ms) 0.[address] [facility] Thresh RA Capture Amplitude (volts) [address] [facility] Thresh RA Capture Duration (ms) 0.[address] [facility] Thresh RA Sensing Amplitude (mvolts) 2.[address] [facility] Thresh RV Capture Amplitude (VOLTS) [address] [facility] Thresh RV Capture Duration (MS) 0.[address] [facility] Thresh RV Sensing Amplitude (MVOLTS) 6.[address] [facility] Tracking Rate (bpm) 130 {beats}/min [facility] VF Zone Detection Interval [address] [facility] No Panel Informationon 12-11 BLANK _ [facility] Implant Date 02/13/[address] [facility] CNPNon 11-24-2022 CNPN Telephone (CARDMN) CARITO RIOS ([id number]) 1980 F Date Time Provider Department 11/24/22 NETO DEMARCO During your visit today, we recorded the following information about you: Page Chavez 11/24/2022 4:01 PM Signed Documentation scanned into EP outside records database. Allergies As of Date: 11/24/2022 (Not on File) Date Reviewed: Never Reviewed Reason for Visit: Received Outside Medical Records [[id number]] Cmt: Referral AND MR Problem List As Of Date: 11/24/2022 (None) Encounter Status:Closed by PAGE MULLIGAN on 11/24/22 Normal [facility] CBC W MANUAL DIFFon 09-25-19 ATYPICAL LYMPH # Normal [facility] Comment on above: Performed By: #### B MP #### [facility] [address] [address] [address] Tien Osorio ATYPICAL LYMPH % Normal [facility] Comment on above: Performed By: #### B MP #### [facility] [address] [place] [address] Dr. Tien Osorio BAND # 0.0 103/ul Normal 0.0-0.3 [facility] Comment on above: Performed By: #### B MP #### [facility] [address] [place] [address] Dr. Tien Osorio BAND % 0 % Normal 0-5 [facility] Comment on above: Performed By: #### B MP #### [facility] [address] [place] [address] Dr. Tien Osorio BASOM # 0.00 103/ul Normal 0.00-0.10 [facility] Comment on above: Performed By: #### B MP #### [facility] [address] [place] [address] Dr. Tien Osorio BASOM % 0.0 % Critically low 0.2-2.0 [facility] Comment on above: Performed By: #### B MP #### [facility] [address] [place] [address] Dr. Tien Osorio BLAST # Normal [facility] Comment on above: Performed By: #### B MP #### [facility] [address] [place] [address] Dr. Tien Osorio BLAST % Normal [facility] Comment on above: Performed By: #### B MP #### [facility] [address] [place] [address] Dr. Tien Osorio CORRECTED WBC Normal 4.0-11.0 [facility] Comment on above: Performed By: #### B MP #### [facility] [address] [place] [address] Dr. Tien Osorio EOS # 0.08 103/ul Normal 0.00-0.70 [facility] Comment on above: Performed By: #### B MP #### [facility] [address] [place] [address] Dr. Tien Osorio EOS% 2.0 % Normal 0.9-7.0 [facility] Comment on above: Performed By: #### B MP #### [facility] [address] [place] [address] Dr. Tien Osorio HCT 36.0 % Normal 36.0-48.0 [facility] Comment on above: Performed By: #### B MP #### [facility] [address] [address] [address] Tien Osorio HGB 12.7 g/dl Normal 12.0-16.0 [facility] Comment on above: Performed By: #### B MP #### [facility] [address] [address] [address] Tien Osorio LYMPHM # 0.41 103/ul Critically low 1.20-3.80 [facility] Comment on above: Performed By: #### B MP #### [facility] [address] [place] [address] Dr. Tien Osorio LYMPHM% 10.0 % Critically low 20.5-60.0 [facility] Comment on above: Performed By: #### B MP #### [facility] [address] [place] [address] Dr. Tien Osorio MCH 30.4 pg Normal 26.7-34.0 [facility] Comment on above: Performed By: #### B MP #### [facility] [address] [place] [address] Dr. Tien Osorio MCHC 35.3 g/dl Critically high 29.9-35.2 [facility] Comment on above: Performed By: #### B MP #### [facility] [address] [place] [address] Dr. Tien Osorio MCV 86.1 fL Normal 81.0-99.0 [facility] Comment on above: Performed By: #### B MP #### [facility] [address] [address] [address] Tien Osorio METAMYELOCYTE # Normal [facility] Comment on above: Performed By: #### B MP #### [facility] [address] [place] [address] Dr. Tien Osorio METAMYELOCYTE % Normal [facility] Comment on above: Performed By: #### B MP #### [facility] [address] [place] [address] Dr. Tien Osorio MONOM# 0.16 103/ul Critically low 0.30-0.80 [facility] Comment on above: Performed By: #### B MP #### [facility] [address] [place] [address] Dr. Tien Osorio MONOM% 4.0 % Normal 1.7-12.0 [facility] Comment on above: Performed By: #### B MP #### [facility] [address] [place] [address] Dr. Tien Osorio MPV 10.1 fL Normal 9.5-13.5 [facility] Comment on above: Performed By: #### B MP #### [facility] [address] [place] [address] Dr. Tien Osorio MYELOCYTE # Normal [facility] Comment on above: Performed By: #### B MP #### [facility] [address] [place] [address] Dr. Tien Osorio MYELOCYTE % Normal [facility] Comment on above: Performed By: #### B MP #### [facility] [address] [place] [address] Dr. Tien Osorio NRBC Normal [facility] Comment on above: Performed By: #### B MP #### [facility] [address] [place] [address] Dr. Tien Osorio PLT 192 103/ul Normal 150-450 [facility] Comment on above: Performed By: #### B MP #### [facility] [address] [place] [address] Dr. Tien Osorio RBC 4.18 106/ul Critically low 4.20-5.40 [facility] Comment on above: Performed By: #### B MP #### [facility] [address] [place] [address] Dr. Tien Osorio RDW 12.9 % Normal 11.0-15.0 [facility] Comment on above: Performed By: #### B MP #### [facility] [address] [place] [address] Dr. Tien Osorio SEG # 3.44 103/ul Normal 1.40-6.50 [facility] Comment on above: Performed By: #### B MP #### [facility] [address] [address] [address] Tien Osorio SEG % 84.0 % Critically high 43.0-75.0 [facility] Comment on above: Performed By: #### B MP #### [facility] [id number] Tien Osorio WBC 4.1 103/ul Normal 4.0-11.0 [facility] Comment on above: Performed By: #### B MP #### [facility] [address] [address] [address] Tien Osorio CTA CHEST WO W CONon 023 CTA CHEST WO W CON EXAMINATION: CTA CHARLIE ST WO W CON HISTORY: CHEST PAIN, UNSPECIFIED COMPARISON: No relevant comparison available. TECHNIQUE: Multi-planar CT images were created with IV contrast. Axial, Coronal, and Sagittal images. Dose reduction techniques were achieved by using automated exposure control and/or adjustment of mA and/or kV according to patient size and/or use of iterative reconstruction technique. 3-D reconstruction was performed on a separate workstation. FINDINGS: VASCULATURE: No pulmonary embolism or abnormal opacity. LUNGS: Minimal groundglass opacities scattered within the dependent lung regions; likely atelectasis. PLEURA: No mass, effusion, or pneumothorax. UNIQUE: No mass or adenopathy. MEDIASTINUM: No mass or adenopathy. CARDIAC: No enlargement, pericardial effusion, or pericardial thickening. AORTA: No aneurysm or dissection. CHEST WALL: No mass or axillary adenopathy. BONES: No bone lesion or fracture. LIMITED ABDOMEN: No suspicious findings. Limited images of the upper abdomen. OTHER: Cardiac pacer within left chest wall. IMPRESSION: 1. No pulmonary embolism. 2. No pulmonary infiltrates or suspicious findings to account for patient's symptoms. Electronically authenticated by: AMADOR ALICEA Date: 2022-09-24 13:35 Normal [facility] PROF CHEM 8 (BAS METB)on Anion gap [Moles/Vol] 11.7 mmol/L Normal [facility] Comment on above: Performed By: #### B MP #### [facility] [address] [address] [address] Tien Osorio Calcium [Mass/Vol] 8.0 mg/dL Critically low 8.5-10.1 [facility] Comment on above: Performed By: #### B MP #### [facility] [address] [address] [address] Tien Osorio Chloride [Moles/Vol] 105 mmol/L Normal 98-107 [facility] Comment on above: Performed By: #### B MP #### [facility] [address] [address] [address] Tien Osorio CO2 [Moles/Vol] 25.0 mmol/L Normal 21.0-32.0 [facility] Comment on above: Performed By: #### B MP #### [facility] [address] [place] [address] Dr. Tien Osorio Creatinine [Mass/Vol] 0.61 mg/dL Normal 0.55-1.02 [facility] Comment on above: Performed By: #### B MP #### [facility] [address] [address] [address] Tien Osorio EGFR-AF [place] >60 Normal >=60 [facility] Comment on above: Performed By: #### B MP #### [facility] [address] [address] [address] Tien Osorio EGFR-NON AF [place] >60 Normal >=60 [facility] Comment on above: Performed By: #### B MP #### [facility] [address] [address] [address] Tien Osorio Glucose [Mass/Vol] 116 mg/dL Critically high 74-106 [facility] Comment on above: Performed By: #### B MP #### [facility] [address] [address] [address] Tien Osorio Potassium [Moles/Vol] 3.7 mmol/L Normal 3.5-5.1 [facility] Comment on above: Performed By: #### B MP #### [facility] [address] [address] [address] Tien Osorio Sodium [Moles/Vol] 138 mmol/L Normal 136-145 [facility] Comment on above: Performed By: #### B MP #### [facility] [address] [address] [address] Tien Osorio Urea nitrogen [Mass/Vol] 4.0 mg/dL Critically low 7.0-18.0 [facility] Comment on above: Performed By: #### B MP #### [facility] [address] [place] [address] Dr. Tien Osorio Urea nitrogen/Creatinin e [Mass ratio] 6.6 mg/mg Normal [facility] Comment on above: Performed By: #### B MP #### [facility] [address] [place] [address] Dr. Tien Osorio CBC W MANUAL DIFFon 09-17-19 23 ATYPICAL LYMPH # Normal [facility] Comment on above: Performed By: #### C FIDENCIOMAN #### [facility] [address] [place] [address] Dr. Tien Osorio ATYPICAL LYMPH % Normal [facility] Comment on above: Performed By: #### C LIDIA #### [facility] [address] [place] [address] Dr. Tien Osorio BAND # Normal 0.0-0.3 [facility] Comment on above: Performed By: #### C LIDIA #### [facility] [address] [place] [address] Dr. Tien Osorio BAND % Normal 0-5 [facility] Comment on above: Performed By: #### C FIDENCIOMAN #### [facility] [address] [place] [address] Dr. Tien Osorio BASOM # 0.00 103/ul Normal 0.00-0.10 [facility] Comment on above: Performed By: #### C LIDIA #### [facility] [address] [place] [address] Dr. Tien Osorio BASOM % 0.0 % Critically low 0.2-2.0 [facility] Comment on above: Performed By: #### C LIDIA #### [facility] [address] [place] [address] Dr. Tien Osorio BLAST # Normal [facility] Comment on above: Performed By: #### C BCBRENDA #### [facility] [address] [place] [address] Dr. Tien Osorio BLAST % Normal [facility] Comment on above: Performed By: #### C BCBRENDA #### [facility] [address] [place] [address] Dr. Tien Osorio CORRECTED WBC Normal 4.0-11.0 [facility] Comment on above: Performed By: #### C BCBRENDA #### [facility] [address] [place] [address] Dr. Tien Osorio EOS # 0.05 103/ul Normal 0.00-0.70 [facility] Comment on above: Performed By: #### C LIDIA #### [facility] [address] [place] [address] Dr. Tien Osorio EOS% 1.0 % Normal 0.9-7.0 [facility] Comment on above: Performed By: #### C LIDIA #### [facility] [address] [place] [address] Dr. Tien Osorio HCT 38.6 % Normal 36.0-48.0 [facility] Comment on above: Performed By: #### C LIDIA #### [facility] [address] [place] [address] Dr. Tien Osorio HGB 13.8 g/dl Normal 12.0-16.0 [facility] Comment on above: Performed By: #### C BCBRENDA #### [facility] [address] [place] [address] Dr. Tien Osorio LYMPHM # 0.73 103/ul Critically low 1.20-3.80 [facility] Comment on above: Performed By: #### C BCBRENDA #### [facility] [address] [place] [address] Dr. Tien Osorio LYMPHM% 15.0 % Critically low 20.5-60.0 [facility] Comment on above: Performed By: #### C LIDIA #### [facility] [address] [place] [address] Dr. Tien Osorio MCH 30.8 pg Normal 26.7-34.0 [facility] Comment on above: Performed By: #### C LIDIA #### [facility] [address] [place] [address] Dr. Tien Osorio MCHC 35.8 g/dl Critically high 29.9-35.2 [facility] Comment on above: Performed By: #### C LIDIA #### [facility] [address] [place] [address] Dr. Tien Osorio MCV 86.2 fL Normal 81.0-99.0 [facility] Comment on above: Performed By: #### C LIDIA #### [facility] [address] [place] [address] Dr. Tien Osorio METAMYELOCYTE # Normal [facility] Comment on above: Performed By: #### Shawna MURILLO #### [facility] [address] [place] [address] Dr. Tien Osorio METAMYELOCYTE % Normal [facility] Comment on above: Performed By: #### Shawna MURILLO #### [facility] [address] [place] [address] Dr. Tien Osorio MONOM# 0.39 103/ul Normal 0.30-0.80 [facility] Comment on above: Performed By: #### Shawna MURILLO #### [facility] [address] [place] [address] Dr. Tien Osorio MONOM% 8.0 % Normal 1.7-12.0 [facility] Comment on above: Performed By: #### Shawna MURILLO #### [facility] [address] [place] [address] Dr. Tien Osorio MPV 9.8 fL Normal 9.5-13.5 [facility] Comment on above: Performed By: #### Shawna MURILLO #### [facility] [address] [place] [address] Dr. Tien Osorio MYELOCYTE # Normal [facility] Comment on above: Performed By: #### C LIDIA #### [facility] [address] [address] [address] Tien Osorio MYELOCYTE % Normal [facility] Comment on above: Performed By: #### C BCMAN #### [facility] [address] [place] [address] Dr. Tien Osorio NRBC Normal [facility] Comment on above: Performed By: #### C BCBRENDA #### [facility] [address] [address] [address] Tien Osorio PLT 201 103/ul Normal 150-450 [facility] Comment on above: Performed By: #### C BCMAN #### [facility] [address] [place] [address] Dr. Tien Osorio RBC 4.48 106/ul Normal 4.20-5.40 [facility] Comment on above: Performed By: #### C BCBRENDA #### [facility] [address] [place] [address] Dr. Tien Osorio RDW 12.9 % Normal 11.0-15.0 [facility] Comment on above: Performed By: #### C BCBRENDA #### [facility] [address] [place] [address] Dr. Tien Osorio SEG # 3.72 103/ul Normal 1.40-6.50 [facility] Comment on above: Performed By: #### C BCBRENDA #### [facility] [address] [place] [address] Dr. Tien Osorio SEG % 76.0 % Critically high 43.0-75.0 [facility] Comment on above: Performed By: #### C BCMAN #### [facility] [address] [place] [address] Dr. Tien Osorio WBC 4.9 103/ul Normal 4.0-11.0 [facility] Comment on above: Performed By: #### C BCMAN #### [facility] [address] [place] [address] Dr. Tien Osorio PROF CHEM 8 (BAS METB)on Anion gap [Moles/Vol] 13.6 mmol/L Normal [facility] Comment on above: Performed By: #### B MP #### [facility] [address] [address] [address] Tien Osorio Calcium [Mass/Vol] 9.1 mg/dL Normal 8.5-10.1 [facility] Comment on above: Performed By: #### B MP #### [facility] [address] [address] [address] Tien Osorio Chloride [Moles/Vol] 105 mmol/L Normal 98-107 [facility] Comment on above: Performed By: #### B MP #### [facility] [address] [address] [address] Tien Osorio CO2 [Moles/Vol] 27.6 mmol/L Normal 21.0-32.0 [facility] Comment on above: Performed By: #### B MP #### [facility] [address] [place] [address] Dr. Tien Osorio Creatinine [Mass/Vol] 0.72 mg/dL Normal 0.55-1.02 [facility] Comment on above: Performed By: #### B MP #### [facility] [address] [address] [address] Tien Osorio EGFR-AF [place] >60 Normal >=60 [facility] Comment on above: Performed By: #### B MP #### [facility] [address] [place] [address] Dr. Tien Osorio EGFR-NON AF [place] >60 Normal >=60 [facility] Comment on above: Performed By: #### B MP #### [facility] [address] [address] [address] Tien Osorio Glucose [Mass/Vol] 92 mg/dL Normal 74-106 [facility] Comment on above: Performed By: #### B MP #### [facility] [address] [place] [address] Dr. Tien Osorio Potassium [Moles/Vol] 4.2 mmol/L Normal 3.5-5.1 [facility] Comment on above: Performed By: #### B MP #### [facility] [address] [place], [place] [address] Dr. Tien Osorio Sodium [Moles/Vol] 142 mmol/L Normal 136-145 [facility] Comment on above: Performed By: #### B MP #### [facility] [address] [place], [place] [address] Dr. Tien Osorio Urea nitrogen [Mass/Vol] 8.0 mg/dL Normal 7.0-18.0 [facility] Comment on above: Performed By: #### B MP #### [facility] [address] [address] [address] Tien Osorio Urea nitrogen/Creatinin e [Mass ratio] 11.1 mg/mg Normal [facility] Comment on above: Performed By: #### B MP #### [facility] [address] [address] [address] Tien Osorio ECHOCARDIO M/2D COMPLETEon 0 08-31-2022 ECHOCARDIO M/2D COMPLETE Patient: CARITO RIOS Exam Date: 08/31/2022 : 1980 Gender:F Ordering : EVELYN CALDWELL Admission #: [id number] Family : Order #: [id number] CLICK HERE TO VIEW EXAM ECHOCARDIOGRAM REPORT PROCEDURE: CARDIO PULMONARY ECHOCARDIO M/2D COMP INDICATIONS: Dyspnea on exertion, edema, AICD, CHF COMPARISON: None. DESCRIPTION: COMPLETE ECHOCARDIOGRAM Real-time transthoracic echocardiography with 2D, M-mode, spectral and color flow Doppler performed. QUALITY: Technical quality was good. LEFT VENTRICLE: Normal chamber size. Thickened septal wall. LV EF: Global left ventricular systolic function is difficult to assess but appears mildly reduced; visually estimated ejection fraction is 45 to 50%. Cannot comment on regional wall motion abnormalities. DIASTOLIC: Diastolic function is indeterminate. ATRIAL SEPTUM: Visually appears intact. LEFT ATRIUM: Normal chamber size. RIGHT ATRIUM: Mild dilatation. RIGHT VENTRICLE: Normal chamber size. Systolic function appears preserved. Pacer wire present. TRICUSPID VALVE: Normal mobility and thickness. No stenosis with trivial regurgitation. Doppler studies reveal mildly (35-45) elevated right sided pressures. RVSP 36 mmHg MITRAL VALVE: Normal mobility and thickness. No evidence of mitral valve stenosis. There is no mitral annular calcification. Trivial mitral regurgitation. AORTIC VALVE: Normal trileaflet appearance. No visible sclerosis. Normal leaflet mobility. No evidence of aortic valve stenosis. No aortic regurgitation. AORTIC ROOT: Normal diameter and appearance. PULMONIC VALVE: Normal thickness and mobility. No stenosis. PERICARDIUM: No evidence of pericardial effusion. IVC: Collapses with inspirations. CONCLUSION: Global left ventricular systolic function is difficult to assess but appears mildly reduced; visually estimated ejection fraction is 45 to 50%. Cannot comment on regional wall motion abnormalities. Diastolic function is indeterminate. The right atrium is mildly dilated. Right ventricle is normal in size and systolic function. Doppler study suggest mildly elevated right-sided pressures. No significant valvular abnormalities. Adult Echocardiography Procedure Report Left Ventricle LVEDD (3.7 - 5.6 cm): 4.43 cm LVESD (2.2 - 4.0 cm): 3.51 cm LVIVS thickness (0.6 - 1.2 cm): 1.09 cm LVPW thickness (0.5 - 1.0 cm): 0.94 cm e': 0.17 m/s E - e': 3.14 LVOT Max Gradient: 2.26 mm[Hg] Peak Velocity (LVOT): 0.75 m/s LVOT Diameter 2.29 cm Left Ventricular Ejection Fraction: 42.47 %, 42.47 % Left Atrium LA Volume Index (2D A2C): 67.32 ml, 67.32 ml Left Atrium Systolic Dimension: 3.51 cm Mitral Valve MV E to A Ratio: 0.91 Mitral Valve A-Wave Peak Velocity: 0.57 m/s Mitral Valve E-Wave Peak Velocity: 0.52 m/s Right Ventricle Aorta AO Root Diam: 3.51 cm Aortic Valve AoV Area (Peak Mello): 3.07 cm2, 3.07 cm2 Peak Velocity(Antegrade Flow): 1.01 m/s Peak Gradient(Antegrade Flow): 4.06 mm[Hg] Mean Velocity(Antegrade Flow): 0.70 m/s Mean Gradient(Antegrade Flow): 2.27 mm[Hg] Velocity Time Integral: 17.75 cm Tricuspid Valve Peak Velocity (Regurgitant Flow): 2.88 m/s Peak Velocity: 0.57 m/s Pulmonic Valve Peak Velocity: 1.01 m/s, 0.88 m/s Peak Gradient: 4.05 mm[Hg], 3.09 mm[Hg] Right Atrium Right Atrium Systolic Pressure: 54.49 ml, 54.49 ml Dictated by: Digna Ortiz M.D. on 09/01/2022 at 11:55 Approved by: Digna Ortiz M.D. on 09/01/2022 at 11:58 Normal [facility] VIT D 25-OH LABCORPon 2021 Vitamin D, 25-Hydroxy 14.0 ng/mL Critically low 30.0-100.0 [facility] Comment on above: Result Comment: Cecilia min D deficiency has been defined by the Stone of [employer] and an Endocrine Society practice guideline as a level of serum 25-OH vitamin D less than 20 ng/mL (1,2). The Endocrine Society went on to further define vitamin D insufficiency as a level between 21 and 29 ng/mL (2). 1. IOM ([employer] of [employer]). 2010. Dietary reference intakes for calcium and D. [place]: The National Academies Press. 2. Joel MF, Abi HANNA, Ortega SUMMERS, et al. Evaluation, treatment, and prevention of vitamin D deficiency: an Endocrine Society clinical practice guideline. JCEM. 2010; 96(7):1911-30. Performed By: #### B MP #### [facility] [address] [place] [address] Dr. Tien Osorio CBC W MANUAL DIFFon 02-17-20 22 ATYPICAL LYMPH # Normal [facility] Comment on above: Performed By: #### B MP #### [facility] [address] [place] [address] Dr. Tien Osorio ATYPICAL LYMPH % Normal [facility] Comment on above: Performed By: #### B MP #### [facility] [address] [place] [address] Dr. Tien Osorio BAND # 0.0 103/ul Normal 0.0-0.3 [facility] Comment on above: Performed By: #### B MP #### [facility] [address] [place] [address] Dr. Tien Osorio BAND % 0 % Normal 0-5 [facility] Comment on above: Performed By: #### B MP #### [facility] [address] [address] [address] Tien Osorio BASOM # 0.00 103/ul Normal 0.00-0.10 [facility] Comment on above: Performed By: #### B MP #### [facility] [address] [place] [address] Dr. Tien Osorio BASOM % 0.0 % Critically low 0.2-2.0 [facility] Comment on above: Performed By: #### B MP #### [facility] [address] [place] [address] Dr. Tien Osorio BLAST # Normal [facility] Comment on above: Performed By: #### B MP #### [facility] [address] [place] [address] Dr. Tien Osorio BLAST % Normal [facility] Comment on above: Performed By: #### B MP #### [facility] [address] [place] [address] Dr. Tien Osorio CORRECTED WBC Normal 4.0-11.0 [facility] Comment on above: Performed By: #### B MP #### [facility] [address] [place] [address] Dr. Tien Osorio EOS # 0.05 103/ul Normal 0.00-0.70 [facility] Comment on above: Performed By: #### B MP #### [facility] [address] [place] [address] Dr. Tien Osorio EOS% 1.0 % Normal 0.9-7.0 [facility] Comment on above: Performed By: #### B MP #### [facility] [address] [place] [address] Dr. Tien Osorio HCT 37.4 % Normal 36.0-48.0 [facility] Comment on above: Performed By: #### B MP #### [facility] [address] [place] [address] Dr. Tien Osorio HGB 12.5 g/dl Normal 12.0-16.0 [facility] Comment on above: Performed By: #### B MP #### [facility] [address] [address] [address] Tien Osorio LYMPHM # 0.41 103/ul Critically low 1.20-3.80 [facility] Comment on above: Performed By: #### B MP #### [facility] [address] [place] [address] Dr. Tien Osorio LYMPHM% 8.0 % Critically low 20.5-60.0 [facility] Comment on above: Performed By: #### B MP #### [facility] [address] [place] [address] Dr. Tien Osorio MCH 29.8 pg Normal 26.7-34.0 [facility] Comment on above: Performed By: #### B MP #### [facility] [address] [place] [address] Dr. Tien Osorio MCHC 33.4 g/dl Normal 29.9-35.2 [facility] Comment on above: Performed By: #### B MP #### [facility] [address] [place] [address] Dr. Tien Osorio MCV 89.3 fL Normal 81.0-99.0 [facility] Comment on above: Performed By: #### B MP #### [facility] [address] [place] [address] Dr. Tien Osorio METAMYELOCYTE # Normal [facility] Comment on above: Performed By: #### B MP #### [facility] [address] [place] [address] Dr. Tien Osorio METAMYELOCYTE % Normal [facility] Comment on above: Performed By: #### B MP #### [facility] [address] [place] [address] Dr. Tien Osorio MONOM# 0.15 103/ul Critically low 0.30-0.80 [facility] Comment on above: Performed By: #### B MP #### [facility] [address] [place] [address] Dr. Tien Osorio MONOM% 3.0 % Normal 1.7-12.0 [facility] Comment on above: Performed By: #### B MP #### [facility] [address] [place] [address] Dr. Tien Osorio MPV 10.7 fL Normal 9.5-13.5 [facility] Comment on above: Performed By: #### B MP #### [facility] [address] [place] [address] Dr. Tien Osorio MYELOCYTE # Normal [facility] Comment on above: Performed By: #### B MP #### [facility] [address] [place] [address] Dr. Tien Osorio MYELOCYTE % Normal [facility] Comment on above: Performed By: #### B MP #### [facility] [address] [place] [address] Dr. Tien Osorio NRBC Normal [facility] Comment on above: Performed By: #### B MP #### [facility] [address] [place] [address] Dr. Tien Osorio PLT 166 103/ul Normal 150-450 [facility] Comment on above: Performed By: #### B MP #### [facility] Laboratory [address] [place] [address] Dr. Tien Osorio RBC 4.19 106/ul Critically low 4.20-5.40 [facility] Comment on above: Performed By: #### B MP #### [facility] [address] [place] [address] Dr. Tien Osorio RDW 14.6 % Normal 11.0-15.0 [facility] Comment on above: Performed By: #### B MP #### [facility] [address] [place] [address] Dr. Tien Osorio SEG # 4.49 103/ul Normal 1.40-6.50 [facility] Comment on above: Performed By: #### B MP #### [facility] [address] [place] [address] Dr. Tien Osorio SEG % 88.0 % Critically high 43.0-75.0 [facility] Comment on above: Performed By: #### B MP #### [facility] [address] [place] [address] Dr. Tien Osorio WBC 5.1 103/ul Normal 4.0-11.0 [facility] Comment on above: Performed By: #### B MP #### [facility] [address] [place] [address] Dr. Tien Osorio FREE T3on 02-16-2022 FREE T3 1.83 pg/mlL Critically low 2.18-3.98 [facility] Comment on above: Performed By: #### B MP, LIPID, FT3, LIVER, TSH #### [facility] [address] [place] [address] Dr. Tien Osorio FREE T4on 02-16-2022 Free T4 [Mass/Vol] 1.08 ng/dL Normal 0.76-1.46 [facility] Comment on above: Performed By: #### B MP #### [facility] [address] [place] [address] Dr. Tien Osorio GLYCOHEMOGLOBIN A1Con 2021 ADA RECOMMENDATION SEE BELOW Normal [facility] Comment on above: Result Comment: ADA RECOMMENDED LIMIT 4.0 - 6.0 ADA THERAPEUTIC TARGET < 7.0 ACTION SUGGESTED > 7.0 Performed By: #### B MP, LIPID, FT3, LIVER, TSH #### [facility] [address] [place] [address] Dr. Tien Osorio Glucose [Mass/Vol] 82 mg/dL Normal [facility] Comment on above: Performed By: #### B MP, LIPID, FT3, LIVER, TSH #### [facility] [address] [place] [address] Dr. Tien Osorio HbA1c (Bld) [Mass fraction] 4.5 % Normal 4.5-6.2 [facility] Comment on above: Performed By: #### B MP, LIPID, FT3, LIVER, TSH #### [facility] [address] [place] [address] Dr. Tien Osorio LIPID PROFILEon 02-16-2022 CHOL-HDL RATIO NORM SEE BELOW Normal [facility] Comment on above: Result Comment: 3.3 - 4.4 LOW RISK 4.4 - 7.1 AVERAGE RISK 7.1 - 11.0 MODERATE RISK >11.0 HIGH RISK Performed By: #### B MP, LIPID, FT3, LIVER, TSH #### [facility] [address] [address] [address] Tien Osorio Cholesterol [Mass/Vol] 151 mg/dL Normal <=200 [facility] Comment on above: Performed By: #### B MP, LIPID, FT3, LIVER, TSH #### [facility] [address] [place] [address] Dr. Tien Osorio Cholesterol in HDL [Mass/Vol] 60 mg/dL Normal 40-60 [facility] Comment on above: Performed By: #### B MP, LIPID, FT3, LIVER, TSH #### [facility] [address] [place] [address] Dr. Tien Osorio Cholesterol in LDL [Mass/Vol] 77.6 mg/dL Normal [facility] Comment on above: Performed By: #### B MP, LIPID, FT3, LIVER, TSH #### [facility] [address] [place] [address] Dr. Tine Osorio Cholesterol.total/ Cholesterol in HDL [Mass ratio] 2.5 {ratio} Normal [facility] Comment on above: Performed By: #### B MP, LIPID, FT3, LIVER, TSH #### [facility] [address] [place] [address] Dr. Tien Osorio HDL NORMAL > or = 60 mg/dl - LO W CARDIOVASCULAR RISK <40 mg/dl - HIGH CARDIOVASCULAR RISK Normal [facility] Comment on above: Performed By: #### B MP, LIPID, FT3, LIVER, TSH #### [facility] [address] [place] [address] Dr. Tien Osorio LDL CALC NORMAL SEE BELOW Normal [facility] Comment on above: Result Comment: <100 mg/dl OPTIMAL 100 - 129 mg/dl NEAR OR ABOVE OPTIMAL 130 - 159 mg/dl BORDERLINE HIGH 160 - 189 mg/dl HIGH >190 mg/dl VERY HIGH Performed By: #### B MP, LIPID, FT3, LIVER, TSH #### [facility] [address] [place] [address] Dr. Tien Osorio Triglyceride [Mass/Vol] 67 mg/dL Normal <=150 [facility] Comment on above: Performed By: #### B MP, LIPID, FT3, LIVER, TSH #### [facility] [address] [place] [address] Dr. Tien Osorio VLDL CALC 13.4 mg/dL Normal [facility] Comment on above: Performed By: #### B MP, LIPID, FT3, LIVER, TSH #### [facility] [address] [place] [address] Dr. Tien Osorio LIVER PROFILEon 02-16-2022 Albumin [Mass/Vol] 3.8 g/dL Normal 3.4-5.0 [facility] Comment on above: Performed By: #### B MP, LIPID, FT3, LIVER, TSH #### [facility] [address] [place] [address] Dr. Tien Osorio Albumin/Globulin [Mass ratio] 1.2 {ratio} Normal [facility] Comment on above: Performed By: #### B MP, LIPID, FT3, LIVER, TSH #### [facility] [address] [place] [address] Dr. Tien Osorio ALP [Catalytic activity/Vol] 71 U/L Normal 46-116 [facility] Comment on above: Performed By: #### B MP, LIPID, FT3, LIVER, TSH #### [facility] [address] [place] [address] Dr. Tien Osorio ALT [Catalytic activity/Vol] 18 U/L Normal 14-59 [facility] Comment on above: Performed By: #### B MP, LIPID, FT3, LIVER, TSH #### [facility] [address] [place] [address] Dr. Tien Osorio AST [Catalytic activity/Vol] 16 U/L Normal 15-37 [facility] Comment on above: Performed By: #### B MP, LIPID, FT3, LIVER, TSH #### [facility] [address] [place] [address] Dr. Tien Osorio BILI, CONJUGATED 0.1 mg/dL Normal 0.0-0.2 [facility] Comment on above: Performed By: #### B MP, LIPID, FT3, LIVER, TSH #### [facility] [address] [place] [address] Dr. Tien Osorio Bilirubin [Mass/Vol] 0.4 mg/dL Normal 0.2-1.0 [facility] Comment on above: Performed By: #### B MP, LIPID, FT3, LIVER, TSH #### [facility] [address] [place] [address] Dr. Tien Osorio Globulin (S) [Mass/Vol] 3.3 g/dL Normal [facility] Comment on above: Performed By: #### B MP, LIPID, FT3, LIVER, TSH #### [facility] [address] [place] [address] Dr. Tien Osorio Protein [Mass/Vol] 7.1 g/dL Normal 6.4-8.2 [facility] Comment on above: Performed By: #### B MP, LIPID, FT3, LIVER, TSH #### [facility] [address] [place] [address] Dr. Tien Osorio PROF CHEM 8 (BAS METB)on Anion gap [Moles/Vol] 12.1 mmol/L Normal [facility] Comment on above: Performed By: #### B MP, LIPID, FT3, LIVER, TSH #### [facility] [address] [place] [address] Dr. Tien Osorio Calcium [Mass/Vol] 8.4 mg/dL Critically low 8.5-10.1 [facility] Comment on above: Performed By: #### B MP, LIPID, FT3, LIVER, TSH #### [facility] [address] [place] [address] Dr. Tien Osorio Chloride [Moles/Vol] 106 mmol/L Normal 98-107 [facility] Comment on above: Performed By: #### B MP, LIPID, FT3, LIVER, TSH #### [facility] [address] [place] [address] Dr. Tien Osorio CO2 [Moles/Vol] 25.7 mmol/L Normal 21.0-32.0 [facility] Comment on above: Performed By: #### B MP, LIPID, FT3, LIVER, TSH #### [facility] [address] [address] [address] Tien Osorio Creatinine [Mass/Vol] 0.56 mg/dL Normal 0.55-1.02 [facility] Comment on above: Performed By: #### B MP, LIPID, FT3, LIVER, TSH #### [facility] [address] [place] [address] Dr. Tien Osorio EGFR-AF [place] >60 Normal >=60 [facility] Comment on above: Performed By: #### B MP, LIPID, FT3, LIVER, TSH #### [facility] [address] [place] [address] Dr. Tien Osorio EGFR-NON AF [place] >60 Normal >=60 [facility] Comment on above: Performed By: #### B MP, LIPID, FT3, LIVER, TSH #### [facility] [address] [place] [address] Dr. Tien Osorio Glucose [Mass/Vol] 79 mg/dL Normal 74-106 [facility] Comment on above: Performed By: #### B MP, LIPID, FT3, LIVER, TSH #### [facility] [address] [place] [address] Dr. Tien Osorio Potassium [Moles/Vol] 3.8 mmol/L Normal 3.5-5.1 [facility] Comment on above: Performed By: #### B MP, LIPID, FT3, LIVER, TSH #### [facility] [address] [place] [address] Dr. Tien Osorio Sodium [Moles/Vol] 140 mmol/L Normal 136-145 [facility] Comment on above: Performed By: #### B MP, LIPID, FT3, LIVER, TSH #### [facility] [address] [place] [address] Dr. Tien Osorio Urea nitrogen [Mass/Vol] 9.0 mg/dL Normal 7.0-18.0 [facility] Comment on above: Performed By: #### B MP, LIPID, FT3, LIVER, TSH #### [facility] [address] [place] [address] Dr. Tien Osorio Urea nitrogen/Creatinin e [Mass ratio] 16.1 mg/mg Normal [facility] Comment on above: Performed By: #### B MP, LIPID, FT3, LIVER, TSH #### [facility] [address] [place] [address] Dr. Tien Osorio TSHon 02-16-2022 TSH 1.079 uIU/mL Normal 0.358-3.74 0 [facility] Comment on above: Performed By: #### B MP, LIPID, FT3, LIVER, TSH #### [facility] [address] [place] [address] Dr. Tien Osorio CBC AUTO DIFFon 11-18-2021 BASO # 0.0 103/ul Normal 0.0-0.1 [facility] Comment on above: Performed By: #### B MP #### [facility] [address] [place] [address] Dr. Tien Osorio Basophils/100 WBC (Bld) 0.5 % Normal 0.2-2.0 [facility] Comment on above: Performed By: #### B MP #### [facility] [address] [place] [address] Dr. Tien Osorio EO # 0.1 103/ul Normal 0.0-0.7 [facility] Comment on above: Performed By: #### B MP #### [facility] [address] [place] [address] Dr. Tien Osorio Eosinophils/100 WBC (Bld) 2.4 % Normal 0.9-7.0 [facility] Comment on above: Performed By: #### B MP #### [facility] [address] [place] [address] Dr. Tien Osorio Erythrocyte distribution width (RBC) [Ratio] 14.3 % Normal 11.0-15.0 [facility] Comment on above: Performed By: #### B MP #### [facility] [address] [place] [address] Dr. Tien Osorio Hematocrit (Bld) [Volume fraction] 35.4 % Critically low 36.0-48.0 [facility] Comment on above: Performed By: #### B MP #### [facility] [address] [place] [address] Dr. Tien Osorio Hemoglobin (Bld) [Mass/Vol] 12.0 g/dL Normal 12.0-16.0 [facility] Comment on above: Performed By: #### B MP #### [facility] [address] [place] [address] Dr. Tien Osorio IG # 0.05 10e3/ul Critically high 0.00-0.03 [facility] Comment on above: Performed By: #### B MP #### [facility] [address] [place] [address] Dr. Tien Osorio IG % 1.3 % Critically high 0.0-0.5 [facility] Comment on above: Performed By: #### B MP #### [facility] [address] [place] [address] Dr. Tien Osroio LYMPH # 0.6 103/ul Critically low 1.2-3.8 [facility] Comment on above: Performed By: #### B MP #### [facility] [address] [place] [address] Dr. Tien Osorio Lymphocytes/100 WBC (Bld) 16.8 % Critically low 20.5-60.0 [facility] Comment on above: Performed By: #### B MP #### [facility] [address] [place] [address] Dr. Tine Osorio MANUAL DIFF REQ NO Normal [facility] Comment on above: Performed By: #### B MP #### [facility] [address] [place] [address] Dr. Tien Osorio MCH (RBC) [Entitic mass] 29.9 pg Normal 26.7-34.0 [facility] Comment on above: Performed By: #### B MP #### [facility] [address] [place] [address] Dr. Tien Osorio MCHC (RBC) [Mass/Vol] 33.9 g/dL Normal 29.9-35.2 [facility] Comment on above: Performed By: #### B MP #### [facility] [address] [address] [address] Tien Osorio MCV (RBC) [Entitic vol] 88.3 fL Normal 81.0-99.0 [facility] Comment on above: Performed By: #### B MP #### [facility] [address] [address] [address] Tien Osorio MONO # 0.4 103/ul Normal 0.3-0.8 [facility] Comment on above: Performed By: #### B MP #### [facility] [address] [address] [address] Tien Osorio Monocytes/100 WBC (Bld) 11.7 % Normal 1.7-12.0 [facility] Comment on above: Performed By: #### B MP #### [facility] [address] [address] [address] Tien Osorio NEUT # 2.5 103/ul Normal 1.4-6.5 [facility] Comment on above: Performed By: #### B MP #### [facility] [address] [place] [address] Dr. Tien Osorio Neutrophils/100 WBC (Bld) 67.3 % Normal 43.0-75.0 [facility] Comment on above: Performed By: #### B MP #### [facility] [address] [address] [address] Tien Osorio Platelet mean volume (Bld) [Entitic vol] 9.4 fL Critically low 9.5-13.5 [facility] Comment on above: Performed By: #### B MP #### [facility] [address] [address] [address] Tien Osorio PLT 216 103/ul Normal 150-450 [facility] Comment on above: Performed By: #### B MP #### [facility] [address] [address] [address] Tien Osorio RBC 4.01 106/ul Critically low 4.20-5.40 [facility] Comment on above: Performed By: #### B MP #### [facility] [address] [address] [address] Tien Osorio WBC 3.8 103/ul Critically low 4.0-11.0 [facility] Comment on above: Performed By: #### B MP #### [facility] [address] [address] [address] Tien Osorio PROF CHEM 8 (BAS METB)on Anion gap [Moles/Vol] 10.4 mmol/L Normal [facility] Comment on above: Performed By: #### B MP #### [facility] [address] [address] [address] Tien Osorio Calcium [Mass/Vol] 8.7 mg/dL Normal 8.5-10.1 [facility] Comment on above: Performed By: #### B MP #### [facility] [address] [place] [address] Dr. Tien Osorio Chloride [Moles/Vol] 105 mmol/L Normal 98-107 [facility] Comment on above: Performed By: #### B MP #### [facility] [address] [address] [address] Tien Osorio CO2 [Moles/Vol] 25.2 mmol/L Normal 21.0-32.0 [facility] Comment on above: Performed By: #### B MP #### [facility] [address] [address] [address] Tien Osorio Creatinine [Mass/Vol] 0.72 mg/dL Normal 0.55-1.02 [facility] Comment on above: Performed By: #### B MP #### [facility] [address] [address] [address] Tien Osorio EGFR-AF [place] >60 Normal >=60 [facility] Comment on above: Performed By: #### B MP #### [facility] [address] [address] [address] Tien Osorio EGFR-NON AF [place] >60 Normal >=60 [facility] Comment on above: Performed By: #### B MP #### [facility] [address] [address] [address] Tien Osorio Glucose [Mass/Vol] 98 mg/dL Normal 74-106 [facility] Comment on above: Performed By: #### B MP #### [facility] [address] [place] [address] Dr. Tien Osorio Potassium [Moles/Vol] 3.6 mmol/L Normal 3.5-5.1 [facility] Comment on above: Performed By: #### B MP #### [facility] [address] [place] [address] Dr. Tien Osorio Sodium [Moles/Vol] 137 mmol/L Normal 136-145 [facility] Comment on above: Performed By: #### B MP #### [facility] [address] [place] [address] Dr. Tien Osorio Urea nitrogen [Mass/Vol] 7.0 mg/dL Normal 7.0-18.0 [facility] Comment on above: Performed By: #### B MP #### [facility] [address] [place] [address] Dr. Tien Osorio Urea nitrogen/Creatinin e [Mass ratio] 9.7 mg/mg Normal [facility] Comment on above: Performed By: #### B MP #### [facility] [address] [place] [address] Dr. Tien Osorio CBC AUTO DIFFon 11-10-2021 BASO # 0.0 103/ul Normal 0.0-0.1 [facility] Comment on above: Performed By: #### B MP #### [facility] [address] [place] [address] Dr. Tien Osorio Basophils/100 WBC (Bld) 0.6 % Normal 0.2-2.0 [facility] Comment on above: Performed By: #### B MP #### [facility] [address] [place] [address] Dr. Tien Osorio EO # 0.1 103/ul Normal 0.0-0.7 [facility] Comment on above: Performed By: #### B MP #### [facility] [address] [address] [address] Tien Osorio Eosinophils/100 WBC (Bld) 2.0 % Normal 0.9-7.0 [facility] Comment on above: Performed By: #### B MP #### [facility] [address] [place] [address] Dr. Tien Osorio Erythrocyte distribution width (RBC) [Ratio] 13.7 % Normal 11.0-15.0 [facility] Comment on above: Performed By: #### B MP #### [facility] [address] [place] [address] Dr. Tien Osorio Hematocrit (Bld) [Volume fraction] 38.1 % Normal 36.0-48.0 [facility] Comment on above: Performed By: #### B MP #### [facility] [address] [place] [address] Dr. Tien Osorio Hemoglobin (Bld) [Mass/Vol] 12.6 g/dL Normal 12.0-16.0 [facility] Comment on above: Performed By: #### B MP #### [facility] [address] [place] [address] Dr. Tien Osorio IG # 0.02 10e3/ul Normal 0.00-0.03 [facility] Comment on above: Performed By: #### B MP #### [facility] [address] [place] [address] Dr. Tien Osorio IG % 0.6 % Critically high 0.0-0.5 [facility] Comment on above: Performed By: #### B MP #### [facility] [address] [place] [address] Dr. Tien Osorio LYMPH # 0.6 103/ul Critically low 1.2-3.8 [facility] Comment on above: Performed By: #### B MP #### [facility] [address] [place] [address] Dr. Tien Osorio Lymphocytes/100 WBC (Bld) 16.3 % Critically low 20.5-60.0 [facility] Comment on above: Performed By: #### B MP #### [facility] [address] [place] [address] Dr. Tien Osorio MANUAL DIFF REQ NO Normal [facility] Comment on above: Performed By: #### B MP #### [facility] [address] [place] [address] Dr. Tien Osorio MCH (RBC) [Entitic mass] 29.9 pg Normal 26.7-34.0 [facility] Comment on above: Performed By: #### B MP #### [facility] [address] [place] [address] Dr. Tien Osorio MCHC (RBC) [Mass/Vol] 33.1 g/dL Normal 29.9-35.2 [facility] Comment on above: Performed By: #### B MP #### [facility] [address] [place] [address] Dr. Tien Osorio MCV (RBC) [Entitic vol] 90.3 fL Normal 81.0-99.0 [facility] Comment on above: Performed By: #### B MP #### [facility] [address] [place] [address] Dr. Tien Osorio MONO # 0.4 103/ul Normal 0.3-0.8 [facility] Comment on above: Performed By: #### B MP #### [facility] [address] [place] [address] Dr. Tien Osorio Monocytes/100 WBC (Bld) 10.0 % Normal 1.7-12.0 [facility] Comment on above: Performed By: #### B MP #### [facility] [address] [place] [address] Dr. Tien Osorio NEUT # 2.5 103/ul Normal 1.4-6.5 [facility] Comment on above: Performed By: #### B MP #### [facility] [address] [place] [address] Dr. Tien Osorio Neutrophils/100 WBC (Bld) 70.5 % Normal 43.0-75.0 [facility] Comment on above: Performed By: #### B MP #### [facility] [address] [place] [address] Dr. Tien Osorio Platelet mean volume (Bld) [Entitic vol] 9.6 fL Normal 9.5-13.5 [facility] Comment on above: Performed By: #### B MP #### [facility] [address] [place] [address] Dr. Tien Osorio PLT 180 103/ul Normal 150-450 [facility] Comment on above: Performed By: #### B MP #### [facility] [address] [place] [address] Dr. Tien Osorio RBC 4.22 106/ul Normal 4.20-5.40 [facility] Comment on above: Performed By: #### B MP #### [facility] [address] [place] [address] Dr. Tien Osorio WBC 3.5 103/ul Critically low 4.0-11.0 [facility] Comment on above: Performed By: #### B MP #### [facility] [address] [place] [address] Dr. Tien Osorio CRPon 11-10-2021 CRP 5.9 mg/dL Critically high <=1.0 [facility] Comment on above: Performed By: #### B MP, LIPID, FT3, LIVER, TSH #### [facility] [address] [place] [address] HEAD WO CONon 11-10-2021 CT HEAD WO CON EXAMINATION: CT HEAD WO CON HISTORY: HEADACHE ; acute headache, nausea, vomiting COMPARISON: CT head without 10/20/2021 TECHNIQUE: Axial CT images were obtained without IV contrast. Dose reduction techniques were achieved by using automated exposure control and/or adjustment of mA and/or kV according to patient size and/or use of iterative reconstruction technique. FINDINGS: BRAIN: No edema, hemorrhage, mass, acute infarction, or inappropriate atrophy. CSF SPACES: No hydrocephalus, subarachnoid hemorrhage, or mass. Appropriate for age. SKULL: No fracture, mass, or other significant visible lesion. SINUSES: No significant mucosal thickening or fluid on the limited views. ORBITS: No appreciable abnormality on the limited views. OTHER: Negative IMPRESSION: 1. No acute or suspicious findings. Stable compared to prior study. Electronically authenticated by: AMADOR ALICEA Date: 2021-11-10 14:04 Normal [facility] Covid-19 PCR (CVDTB)on 10-20 SARS-CoV-2 (COVID-19) RNA BECKY+probe Ql (Unsp spec) Not detected Normal NOT DETECTED [facility] Comment on above: Result Comment: This test is not yet approved or cleared by the [place] FDA. When there are no FDA-approved or cleared tests available, and other criteria are met, FDA can make tests available under an emergency access mechanism called an Emergency Use Authorization (EUA). The EUA for this test is supported by the [place] of Health and Human Service's (HHS's) declaration that circumstances exist to justify the emergency use of in vitro diagnostics for the detection and/or diagnosis of the virus that causes COVID-19. This EUA will remain in effect (meaning this test can be used) for the duration of the COVID-19 declaration justifying emergency of IVDs, unless it is terminated or revoked by FDA (after which the test may no longer be used). When diagnostic testing is negative, the possibility of a false negative should be considered in the context of a patient's recent exposures and the presence of clinical signs and symptoms consistent with SARS-CoV-2. Performed By: #### B MP, LIPID, FT3, LIVER, TSH #### [facility] [address] [place] [address] Dr. Tien Osorio INFLUENZA A AND B AGon 11-10 INFLUENZA A AG Negative Normal NEGATIVE SEE COMMENT [facility] Comment on above: Performed By: #### I NFLUAB #### [facility] [address] [place] [address] Dr. Tien Osorio INFLUENZA B AG Negative Normal NEGATIVE SEE COMMENT [facility] Comment on above: Performed By: #### I NFLUAB #### [facility] [address] [place] [address] Dr. Tien Osorio INTERNAL CONTROLS Within Normal Limits Normal Wi thin Normal Limits [facility] Comment on above: Performed By: #### I NFLUAB #### [facility] [address] [place] [address] Dr. Tien Osorio PROF 14(COMP METB)on 022 Albumin [Mass/Vol] 3.6 g/dL Normal 3.4-5.0 [facility] Comment on above: Performed By: #### B MP #### [facility] [address] [place] [address] Dr. Tien Osorio Albumin/Globulin [Mass ratio] 0.9 {ratio} Normal [facility] Comment on above: Performed By: #### B MP #### [facility] [address] [address] [address] Tien Osorio ALP [Catalytic activity/Vol] 230 U/L Critically high 46-116 [facility] Comment on above: Performed By: #### B MP #### [facility] [address] [place] [address] Dr. Tien Osorio ALT [Catalytic activity/Vol] 53 U/L Normal 14-59 [facility] Comment on above: Performed By: #### B MP #### [facility] [address] [place] [address] Dr. Tien Osorio Anion gap [Moles/Vol] 11.6 mmol/L Normal [facility] Comment on above: Performed By: #### B MP #### [facility] [address] [place] [address] Dr. Tien Osorio AST [Catalytic activity/Vol] 33 U/L Normal 15-37 [facility] Comment on above: Performed By: #### B MP #### [facility] [address] [place] [address] Dr. Tien Osorio Bilirubin [Mass/Vol] 0.4 mg/dL Normal 0.2-1.0 [facility] Comment on above: Performed By: #### B MP #### [facility] [address] [place] [address] Dr. Tien Osorio Calcium [Mass/Vol] 8.4 mg/dL Critically low 8.5-10.1 [facility] Comment on above: Performed By: #### B MP #### [facility] [address] [place] [address] Dr. Tien Osorio Chloride [Moles/Vol] 104 mmol/L Normal 98-107 [facility] Comment on above: Performed By: #### B MP #### [facility] [address] [address] [address] Tien Osorio CO2 [Moles/Vol] 24.0 mmol/L Normal 21.0-32.0 [facility] Comment on above: Performed By: #### B MP #### [facility] [address] [address] [address] Tien Osorio Creatinine [Mass/Vol] 0.69 mg/dL Normal 0.55-1.02 [facility] Comment on above: Performed By: #### B MP #### [facility] [address] [address] [address] Tien Osorio EGFR-AF [place] >60 Normal >=60 [facility] Comment on above: Performed By: #### B MP #### [facility] [address] [address] [address] Tien Osorio EGFR-NON AF [place] >60 Normal >=60 [facility] Comment on above: Performed By: #### B MP #### [facility] [address] [address] [address] Tien Osorio Globulin (S) [Mass/Vol] 3.8 g/dL Normal [facility] Comment on above: Performed By: #### B MP #### [facility] [address] [address] [address] Tien Osorio Glucose [Mass/Vol] 139 mg/dL Critically high 74-106 [facility] Comment on above: Performed By: #### B MP #### [facility] [address] [address] [address] Tien Osorio Potassium [Moles/Vol] 3.6 mmol/L Normal 3.5-5.1 [facility] Comment on above: Performed By: #### B MP #### [facility] [address] [address] [address] Tien Osorio Protein [Mass/Vol] 7.4 g/dL Normal 6.4-8.2 [facility] Comment on above: Performed By: #### B MP #### [facility] [address] [place] [address] Dr. Tien Osorio Sodium [Moles/Vol] 136 mmol/L Normal 136-145 [facility] Comment on above: Performed By: #### B MP #### [facility] [address] [place] [address] Dr. Tien Osorio Urea nitrogen [Mass/Vol] 9.0 mg/dL Normal 7.0-18.0 [facility] Comment on above: Performed By: #### B MP #### [facility] [address] [place] [address] Dr. Tien Osorio Urea nitrogen/Creatinin e [Mass ratio] 13.0 mg/mg Normal [facility] Comment on above: Performed By: #### B MP #### [facility] [address] [place] [address] Dr. Tien Osorio SED RATE WESTERGREN 2021 SED RATE 43 mm/hr Critically high <=20 [facility] Comment on above: Performed By: #### B MP #### [facility] [address] [place] [address] Dr. Tien Osorio TSHon 11-10-2021 TSH 2.715 uIU/mL Normal 0.358-3.74 0 [facility] Comment on above: Performed By: #### B MP, LIPID, FT3, LIVER, TSH #### [facility] [address] [place] [address] Dr. Tien Osorio TSH RANGE SEE BELOW Normal [facility] Comment on above: Result Comment: <0.3 4 UIU/ml HYPERTHYROID 0.34-5.60 UIU/ml EUTHYROID >5.60 UIU/ml HYPOTHYROID Performed By: #### B MP, LIPID, FT3, LIVER, TSH #### [facility] [address] [place] [address] Dr. Tien Osorio CBC W MANUAL DIFFon 10-24-19 ATYPICAL LYMPH # Normal [facility] Comment on above: Performed By: #### B MP #### [facility] [address] [place] [address] Dr. Tien Osorio ATYPICAL LYMPH % Normal [facility] Comment on above: Performed By: #### B MP #### [facility] [address] [place] [address] Dr. Tien Osorio BAND # 0.1 103/ul Normal 0.0-0.3 [facility] Comment on above: Performed By: #### B MP #### [facility] [address] [place] [address] Dr. Tien Osorio BAND % 2 % Normal 0-5 [facility] Comment on above: Performed By: #### B MP #### [facility] [address] [place] [address] Dr. Tien Osorio BASOM # 0.00 103/ul Normal 0.00-0.10 [facility] Comment on above: Performed By: #### B MP #### [facility] [address] [place] [address] Dr. Tien Osorio BASOM % 0.0 % Critically low 0.2-2.0 [facility] Comment on above: Performed By: #### B MP #### [facility] [address] [place] [address] Dr. Tien Osorio BLAST # Normal [facility] Comment on above: Performed By: #### B MP #### [facility] [address] [place] [address] Dr. Tien Osorio BLAST % Normal [facility] Comment on above: Performed By: #### B MP #### [facility] [address] [place] [address] Dr. Tien Osorio CORRECTED WBC Normal 4.0-11.0 [facility] Comment on above: Performed By: #### B MP #### [facility] [address] [place] [address] Dr. Tien Osorio EOS # 0.04 103/ul Normal 0.00-0.70 [facility] Comment on above: Performed By: #### B MP #### [facility] [address] [place] [address] Dr. Tien Osorio EOS% 1.0 % Normal 0.9-7.0 [facility] Comment on above: Performed By: #### B MP #### [facility] [address] [address] [address] Tien Osorio HCT 36.4 % Normal 36.0-48.0 [facility] Comment on above: Performed By: #### B MP #### [facility] [address] [address] [address] Tien Osorio HGB 12.2 g/dl Normal 12.0-16.0 [facility] Comment on above: Performed By: #### B MP #### [facility] [address] [place] [address] Dr. Tien Osorio LYMPHM # 0.49 103/ul Critically low 1.20-3.80 [facility] Comment on above: Performed By: #### B MP #### [facility] [address] [place] [address] Dr. Tien Osorio LYMPHM% 12.0 % Critically low 20.5-60.0 [facility] Comment on above: Performed By: #### B MP #### [facility] [address] [place] [address] Dr. Tien Osorio MCH 30.3 pg Normal 26.7-34.0 [facility] Comment on above: Performed By: #### B MP #### [facility] [address] [place] [address] Dr. Tien Osorio MCHC 33.5 g/dl Normal 29.9-35.2 [facility] Comment on above: Performed By: #### B MP #### [facility] [address] [place] [address] Dr. Tien Osorio MCV 90.3 fL Normal 81.0-99.0 [facility] Comment on above: Performed By: #### B MP #### [facility] [address] [place] [address] Dr. Tien Osorio METAMYELOCYTE # Normal [facility] Comment on above: Performed By: #### B MP #### [facility] [address] [place] [address] Dr. Tien Osorio METAMYELOCYTE % Normal [facility] Comment on above: Performed By: #### B MP #### [facility] [address] [address] [address] Tien Osorio MONOM# 0.37 103/ul Normal 0.30-0.80 [facility] Comment on above: Performed By: #### B MP #### [facility] [address] [address] [address] Tien Osorio MONOM% 9.0 % Normal 1.7-12.0 [facility] Comment on above: Performed By: #### B MP #### [facility] [address] [address] [address] Tien Osorio MPV 9.8 fL Normal 9.5-13.5 [facility] Comment on above: Performed By: #### B MP #### [facility] [address] [place] [address] Dr. Tien Osorio MYELOCYTE # Normal [facility] Comment on above: Performed By: #### B MP #### [facility] [address] [place] [address] Dr. Tien Osorio MYELOCYTE % Normal [facility] Comment on above: Performed By: #### B MP #### [facility] [address] [place] [address] Dr. Tien Osorio NRBC Normal [facility] Comment on above: Performed By: #### B MP #### [facility] [address] [address] [address] Tien Osorio PLT 190 103/ul Normal 150-450 [facility] Comment on above: Performed By: #### B MP #### [facility] [address] [address] [address] Tien Osorio RBC 4.03 106/ul Critically low 4.20-5.40 [facility] Comment on above: Performed By: #### B MP #### [facility] [address] [place] [address] Dr. Tien Osorio RDW 13.9 % Normal 11.0-15.0 [facility] Comment on above: Performed By: #### B MP #### [facility] [address] [address] [address] Tien Osorio SEG # 3.12 103/ul Normal 1.40-6.50 [facility] Comment on above: Performed By: #### B MP #### [facility] [address] [place] [address] Dr. Tien Osorio SEG % 76.0 % Critically high 43.0-75.0 [facility] Comment on above: Performed By: #### B MP #### [facility] [address] [address] [address] Tien Osorio WBC 4.1 103/ul Normal 4.0-11.0 [facility] Comment on above: Performed By: #### B MP #### [facility] [address] [place] [address] Dr. Tien Osorio CRPon 10-23-2021 CRP 2.7 mg/dL Critically high <=1.0 [facility] Comment on above: Performed By: #### B MP #### [facility] [address] [place] [address] Dr. Tien Osorio PROF CHEM 8 (BAS METB)on Anion gap [Moles/Vol] 4.8 mmol/L Normal [facility] Comment on above: Performed By: #### B MP #### [facility] [address] [place] [address] Dr. Tien Osorio Calcium [Mass/Vol] 7.9 mg/dL Critically low 8.5-10.1 [facility] Comment on above: Performed By: #### B MP #### [facility] [address] [place] [address] Dr. Tien Osorio Chloride [Moles/Vol] 103 mmol/L Normal 98-107 [facility] Comment on above: Performed By: #### B MP #### [facility] [address] [place] [address] Dr. Tien Osorio CO2 [Moles/Vol] 28.6 mmol/L Normal 21.0-32.0 [facility] Comment on above: Performed By: #### B MP #### [facility] [address] [address] [address] Tien Osorio Creatinine [Mass/Vol] 0.77 mg/dL Normal 0.55-1.02 [facility] Comment on above: Performed By: #### B MP #### [facility] [address] [address] [address] Tien Osorio EGFR-AF [place] >60 Normal >=60 [facility] Comment on above: Performed By: #### B MP #### [facility] [address] [address] [address] Tien Osorio EGFR-NON AF [place] >60 Normal >=60 [facility] Comment on above: Performed By: #### B MP #### [facility] [address] [place] [address] Dr. Tien Osorio Glucose [Mass/Vol] 106 mg/dL Normal 74-106 [facility] Comment on above: Performed By: #### B MP #### [facility] [address] [place] [address] Dr. Tien Osorio Potassium [Moles/Vol] 3.4 mmol/L Critically low 3.5-5.1 [facility] Comment on above: Performed By: #### B MP #### [facility] [address] [place] [address] Dr. Tien Osorio Sodium [Moles/Vol] 133 mmol/L Critically low 136-145 [facility] Comment on above: Performed By: #### B MP #### [facility] [address] [place] [address] Dr. Tien Osorio Urea nitrogen [Mass/Vol] 8.0 mg/dL Normal 7.0-18.0 [facility] Comment on above: Performed By: #### B MP #### [facility] [address] [place] [address] Dr. Tien Osorio Urea nitrogen/Creatinin e [Mass ratio] 10.4 mg/mg Normal [facility] Comment on above: Performed By: #### B MP #### [facility] [address] [place] [address] Dr. Tien Osorio SED RATE WESTERGRENon 2021 SED RATE 18 mm/hr Normal <=20 [facility] Comment on above: Performed By: #### B MP #### [facility] [address] [place] [address] Dr. Tien Osorio CBC AUTO DIFFon 10-20-2021 BASO # 0.0 103/ul Normal 0.0-0.1 [facility] Comment on above: Performed By: #### B MP #### [facility] [address] [place] [address] Dr. Tien Osorio Basophils/100 WBC (Bld) 0.3 % Normal 0.2-2.0 [facility] Comment on above: Performed By: #### B MP #### [facility] [address] [place] [address] Dr. Tien Osorio EO # 0.0 103/ul Normal 0.0-0.7 [facility] Comment on above: Performed By: #### B MP #### [facility] [address] [place] [address] Dr. Tien Osorio Eosinophils/100 WBC (Bld) 1.3 % Normal 0.9-7.0 [facility] Comment on above: Performed By: #### B MP #### [facility] [address] [place] [address] Dr. Tien Osorio Erythrocyte distribution width (RBC) [Ratio] 14.0 % Normal 11.0-15.0 [facility] Comment on above: Performed By: #### B MP #### [facility] [address] [place] [address] Dr. Tien Osorio Hematocrit (Bld) [Volume fraction] 34.3 % Critically low 36.0-48.0 [facility] Comment on above: Performed By: #### B MP #### [facility] [address] [place] [address] Dr. Tien Osorio Hemoglobin (Bld) [Mass/Vol] 11.6 g/dL Critically low 12.0-16.0 [facility] Comment on above: Performed By: #### B MP #### [facility] [address] [place] [address] Dr. Tien Osorio IG # 0.03 10e3/ul Normal 0.00-0.03 [facility] Comment on above: Performed By: #### B MP #### [facility] [address] [place] [address] Dr. Tien Osorio IG % 0.9 % Critically high 0.0-0.5 [facility] Comment on above: Performed By: #### B MP #### [facility] [address] [place] [address] Dr. Tien Osorio LYMPH # 0.4 103/ul Critically low 1.2-3.8 [facility] Comment on above: Performed By: #### B MP #### [facility] [address] [place] [address] Dr. Tien Osorio Lymphocytes/100 WBC (Bld) 12.3 % Critically low 20.5-60.0 [facility] Comment on above: Performed By: #### B MP #### [facility] [address] [place] [address] Dr. Tien Osorio MANUAL DIFF REQ NO Normal [facility] Comment on above: Performed By: #### B MP #### [facility] [address] [place] [address] Dr. Tien Osorio MCH (RBC) [Entitic mass] 30.4 pg Normal 26.7-34.0 [facility] Comment on above: Performed By: #### B MP #### [facility] [address] [place] [address] Dr. Tien Osorio MCHC (RBC) [Mass/Vol] 33.8 g/dL Normal 29.9-35.2 [facility] Comment on above: Performed By: #### B MP #### [facility] [address] [place] [address] Dr. Tien Osorio MCV (RBC) [Entitic vol] 90.0 fL Normal 81.0-99.0 [facility] Comment on above: Performed By: #### B MP #### [facility] [address] [place] [address] Dr. Tien Osorio MONO # 0.3 103/ul Normal 0.3-0.8 [facility] Comment on above: Performed By: #### B MP #### [facility] [address] [place] [address] Dr. Tien Osorio Monocytes/100 WBC (Bld) 10.7 % Normal 1.7-12.0 [facility] Comment on above: Performed By: #### B MP #### [facility] [address] [place] [address] Dr. Tien Osorio NEUT # 2.4 103/ul Normal 1.4-6.5 [facility] Comment on above: Performed By: #### B MP #### [facility] [address] [place] [address] Dr. Tien Osorio Neutrophils/100 WBC (Bld) 74.5 % Normal 43.0-75.0 [facility] Comment on above: Performed By: #### B MP #### [facility] [address] [place] [address] Dr. Tien Osorio Platelet mean volume (Bld) [Entitic vol] 10.0 fL Normal 9.5-13.5 [facility] Comment on above: Performed By: #### B MP #### [facility] [address] [place] [address] Dr. Tien Osorio PLT 158 103/ul Normal 150-450 [facility] Comment on above: Performed By: #### B MP #### [facility] [address] [place] [address] Dr. Tien Osorio RBC 3.81 106/ul Critically low 4.20-5.40 [facility] Comment on above: Performed By: #### B MP #### [facility] [address] [place] [address] Dr. Tien Osorio WBC 3.2 103/ul Critically low 4.0-11.0 [facility] Comment on above: Performed By: #### B MP #### [facility] [address] [place] [address] HEAD WO CONon 10-20-2021 CT HEAD WO CON EXAMINATION: CT HEAD WO CON HISTORY: HEADACHE COMPARISON: No relevant comparison available. TECHNIQUE: Axial CT images were obtained without IV contrast. Dose reduction techniques were achieved by using automated exposure control and/or adjustment of mA and/or kV according to patient size and/or use of iterative reconstruction technique. FINDINGS: BRAIN: No edema, hemorrhage, mass, acute infarction, or inappropriate atrophy. CSF SPACES: No hydrocephalus, subarachnoid hemorrhage, or mass. Appropriate for age. SKULL: No fracture, mass, or other significant visible lesion. SINUSES: No significant mucosal thickening or fluid on the limited views. ORBITS: No appreciable abnormality on the limited views. OTHER: Negative IMPRESSION: 1. Normal CT examination of the brain. Electronically authenticated by: AMADOR ALICEA Date: 2021-10-20 13:46 Normal [facility] PROF CHEM 8 (BAS METB)on Anion gap [Moles/Vol] 11.9 mmol/L Normal [facility] Comment on above: Performed By: #### B MP #### [facility] [address] [place] [address] Dr. Tien Osorio Calcium [Mass/Vol] 8.3 mg/dL Critically low 8.5-10.1 [facility] Comment on above: Performed By: #### B MP #### [facility] [address] [place] [address] Dr. Tien Osorio Chloride [Moles/Vol] 104 mmol/L Normal 98-107 [facility] Comment on above: Performed By: #### B MP #### [facility] [address] [place] [address] Dr. Tien Osorio CO2 [Moles/Vol] 26.2 mmol/L Normal 21.0-32.0 [facility] [facility] Comment on above: Performed By: #### B MP #### [facility] [address] [place] [address] Dr. Tien Osorio Creatinine [Mass/Vol] 0.61 mg/dL Normal 0.55-1.02 [facility] Comment on above: Performed By: #### B MP #### [facility] [address] [place] [address] Dr. Tien Osorio EGFR-AF [place] >60 Normal >=60 [facility] Comment on above: Performed By: #### B MP #### [facility] [address] [address] [address] Tien Osorio EGFR-NON AF [place] >60 Normal >=60 [facility] Comment on above: Performed By: #### B MP #### [facility] [address] [address] [address] Tien Osorio Glucose [Mass/Vol] 115 mg/dL Critically high 74-106 [facility] Comment on above: Performed By: #### B MP #### [facility] [address] [address] [address] Tien Osorio Potassium [Moles/Vol] 4.1 mmol/L Normal 3.5-5.1 [facility] Comment on above: Performed By: #### B MP #### [facility] [address] [address] [address] Tien Osorio Sodium [Moles/Vol] 138 mmol/L Normal 136-145 [facility] Comment on above: Performed By: #### B MP #### [facility] [address] [address] [address] Tien Osorio Urea nitrogen [Mass/Vol] 7.0 mg/dL Normal 7.0-18.0 [facility] Comment on above: Performed By: #### B MP #### [facility] [address] [address] [address] Tien Osorio Urea nitrogen/Creatinin e [Mass ratio] 11.5 mg/mg Normal [facility] Comment on above: Performed By: #### B MP #### [facility] [address] [address] [address] Tien Osorio SED RATE [facility] 2021 SED RATE 19 mm/hr Normal <=20 [facility] Comment on above: Performed By: #### B MP #### [facility] [address] [address] [address] Tien Osorio Cardiovascular Lab Reporton 04-30-2018 Cardiovascular Lab Report [facility] Patient Name: [facility] Carito Jalloh MR #: [id number] of Physician: Rogelio Whitlock M.D.Division of Service Date: 04/29/2018Cardiology Birthdate: 1980Adult Cardi[facility] [place], [place] [address]Endvs Fax Cardiovascular Laboratory ReportINDICATION: The patient is a 37-year-old woman, who was evaluated in theCardiology Clinic by Dr. Kade Sofia because of extreme shortness ofbreath on exertion. She is referred for right heart catheterization.PROCEDURES:1. Access into the right internal jugular vein under ultrasound guidance.2. Right heart catheterization.METHODS: Procedure was explained to the patient with risks and benefits.She signed informed consent. She was brought to laborer yard in a fastingstate. The right neck area was prepped and draped in usual fashion. Usingultrasound guidance and micropuncture technique, the right internal jugularvein was accessed. A 6-Tajik x 11 cm sheath was placed. A 6-FrenchBerman catheter was used for right heart catheterization with measurementof pressures and calculation of cardiac output using the estimated Fickmethod. Stoner catheter was removed. Access sheath was removed and manualcompression applied for hemostasis. She tolerated the procedure well. Shewas transferred to the cardiovascular recovery area. She will be observedfor 1 to 2 hours and then discharged to home.TOTAL FLUORO TIME: 40 seconds.HEMODYNAMICS: RA 0, RV 21/-4, 1. PA 18/2. Mean 9. Pulmonary capillarywedge pressure 4. Blood pressure 132/80, cardiac output 4.92, cardiacindex 2.32, PA sat 68%, AO sat 100%.SUMMARY OF THE FINDINGS:1. Low filling pressures.2. Low normal PA pressures.3. Reduced cardiac output and cardiac index.RECOMMENDATIONS:1. The patient's symptoms are related to dehydration and reduced cardiac output. Therefore, her Lasix will be held for 2 days and reduced from 20 mg b.i.d. to 20 mg every other day.2. She will be hydrated in the laborer yard holding area before discharge.3. Follow up in Cardiology Clinic with Dr. Kade Sofia.Electronically Signed by:Rogelio Whitlock M.D. 05/02/2018 07:18 P Rogelio Whitlock M.D.Date Dict: 04/29/2018/02:44 P/Rogelio Whitlock M.D.Date Trans: 04/30/2018 04:20 A/pebblesoDN_JN:[id number]: Kade Sofia M.D. 135[address] [facility] [address] Rock Dunbar M.D. 1036 [facility] [address] Normal [facility] BASIC METABOLIC PANELon 11-0 Calcium mass conc 8.9 mg/dL Normal 8.6-10.3 [facility] Comment on above: Performed By: #### 0 0071 ####[facility] Chloride molar conc 105 mmol/L Normal 98-107 [facility] Comment on above: Performed By: #### 0 0071 ####[facility] CO2 molar conc 28 mmol/L Normal 21-31 [facility] Comment on above: Performed By: #### 0 0071 ####[facility] Creatinine mass conc 0.71 mg/dL Normal 0.60-1.20 [facility] Comment on above: Performed By: #### 0 0071 ####[facility] [place] [address], [facility] GFR/1.73 sq M predicted among blacks MDRD vol rate/area (S/P/Bld) mL/min/{1.73_m2} Normal >60 [facility] Comment on above: Performed By: #### 0 0071 ####[facility] [place] [address], [facility] GFR/1.73 sq M predicted among non-blacks MDRD vol rate/area (S/P/Bld) mL/min/{1.73_m2} Normal >60 [facility] Comment on above: Performed By: #### 0 0071 ####[facility] [facility] [address], [facility] Glucose mass conc 91 mg/dL Normal 70-100 [facility] Comment on above: Performed By: #### 0 0071 ####[place] [address] [address] Potassium molar conc 4.2 mmol/L Normal 3.5-5.1 [facility] Comment on above: Performed By: #### 0 0071 ####[place] [address] [facility].[address] Sodium molar conc 138 mmol/L Normal 136-145 [facility] Comment on above: Performed By: #### 0 0071 ####[place] [address] Urea nitrogen mass conc 4 mg/dL Low 7-25 [facility] Comment on above: Performed By: #### 0 0071 ####[facility] [facility].[address] CBC COMPLETE BLOOD COUNTon 06-29-2017 Erythrocyte distribution width Auto Ratio (RBC) 13.1 % Normal 11.5-15.0 [facility] Comment on above: Performed By: #### 5 [address]608 ####[address] Hematocrit Auto Volume Fraction (Bld) 38.5 % Normal 36.0-45.0 [facility] Comment on above: Performed By: #### 5 0608 ####[facility] Hemoglobin mass conc (Bld) 13.6 g/dL Normal 12.0-15.0 [facility] Comment on above: Performed By: #### 5 0608 ####[address] MCH Auto Entitic mass (RBC) 30.0 pg Normal 27.0-33.0 [facility] Comment on above: Performed By: #### 5 0608 ####[address] MCHC Auto mass conc (RBC) 35.3 g/dL High 32.0-35.0 [facility] Comment on above: Performed By: #### 5 0608 ####[address] MCV Auto Entitic volume (RBC) 84.8 fL Normal 82.0-98.0 [facility] Comment on above: Performed By: #### 5 0608 ####[address] Nucleated RBC/100 WBC Ratio (Bld) 0 % Normal 0-0 [facility] Comment on above: Performed By: #### 5 0608 ####[address] PLAT CNT 183 10*3/uL Normal 150-400 [facility] Comment on above: Performed By: #### 5 0608 ####[address] RBC Auto #/vol (Bld) 4.54 10*6/uL Normal 3.80-5.00 [facility] Comment on above: Performed By: #### 5 0608 ####[address] WBC Auto #/vol (Bld) 5.28 10*3/uL Normal 4.00-10.60 [facility] Comment on above: Performed By: #### 5 0608 ####[address] Cardiovascular Lab Reporton 04-01-2018 Cardiovascular Lab Report [facility] Patient Name: [facility] Carito Jalloh MR #: [id number] of Physician: Kade Sofia M.D.Division of Service Date: 03/31/2018Cardiology Birthdate: 1980Adult Cardiovascular Room #: [facility] [place], [place] [address]Qvtrh Fax Cardiovascular Laboratory ReportINDICATION: The patient is a long-term patient of mine from [place]. Shehas a history of a severe nonischemic cardiomyopathy that improvedsubstantially with DROSS PULLER defibrillator. She has a [employer] device that is atelective replacement index. Her left ventricular lead is epicardial. Herinitial implants were in 2008.Consent was obtained. Next, she was given cefazolin 2 g IV. We attemptedto give her vancomycin, but she developed some flushing, so it wasdiscontinued.She was brought to the EP lab, sterilely prepped and draped, givenconscious sedation. Local anesthesia was provided by bupivacaine. Next,using a plasma blade and a scissor dissection was taken down to theexisting device, which was removed. The leads were freed up. Next, theleads appeared to be in good condition. Next, the pocket was irrigatedwith bacitracin and gentamicin. Next, the device was removed from thelead. She is not pacemaker dependent. She has underlying sinus rhythmwith a left bundle-branch block. Next, the new device was attached,secured, the leads were checked, they were secure. The pocket wasirrigated with bacitracin and gentamicin. The device was placed back inthe pocket, was re-irrigated, then closed in 2 running layers of 2-0 Vicrylrunning layer 3-0 Vicryl adhered with Dermabond, Steri-Strips. Sponge, andneedle counts were correct. The removed device was a [employer] Terrance Unify [id number]. It was implanted on 02/22/2013. Next, the leads were inspectedand were in good condition. The sensing was 2.2 mV in the atrium, 6.9 mVin the RV, impedance 390 ohms in the atrial lead, 330 ohms in the RV lead.The LV lead was 200 ohms, it has chronic defibrillation threshold 72 ohms.Pacing threshold in the atrium 0.75 V at 0.4 milliseconds. The RV 1.5 V at0.4 milliseconds. The LV 1.875 V at 1 millisecond. These were all verysimilar if not identical to the pre-surgery testing. Next, she was set pb single zone with 200 beats per minute. Next, DROSS PULLER pacing wasreinstituted.ASSESSMENT:1. Conscious sedation.2. Removal of existing DROSS PULLER generator. The SVC plug is port capped as prior.3. Placement of a new DROSS PULLER-D generator. There were no apparent complications. There was no contrast utilized. There was no fluoroscopy utilized. Blood loss was minimal.Electronically Signed by:Kade Sofia M.D. 04/01/2018 08:32 A Kade Sofia M.D.Date Dict: 03/31/2018/01:48 P/Kade Sofia M.D.Date Trans: 04/01/2018 06:34 A/pebblesoDN_JN:[id number]: Rock Dunbar M.D. [address] [facility] [address] [place] [facility] Coding Summary.on 02-09-2018 Coding Summary. CODING DATE: 018 [facility] STATUS: Home (Routine DC) PAYOR: Medicaid EAPG DESCRIPTION 0299 CAT SCAN - BRAIN 0457 VENIPUNCTURE 0408 LEVEL I HEMATOLOGY TESTS 0406 LEVEL I CLOTTING TESTS 0403 ORGAN OR DISEASE ORIENTED PANELS 0413 CARDIOGRAM 0401 LEVEL II CHEMISTRY TESTS 0471 PLAIN FILM 0496 MINOR PHARMACOTHERAPY 0495 MINOR CHEMOTHERAPY DRUGS 0400 LEVEL I CHEMISTRY TESTS 0398 LEVEL I ENDOCRINOLOGY TESTS 0490 INCIDENTAL TO MEDICAL, SIGNIFICANT PROCEDURE OR THERAPY VISIT 0272 SPEECH THERAPY AND EVALUATION 0081 ECHOCARDIOGRAPHY 0303 ANGIOGRAPHY, CEREBRAL 0301 CAT SCAN - OTHER 0271 PHYSICAL THERAPY 0450 OBSERVATION 0111 PHARMACOTHERAPY EXCEPT BY EXTENDED INFUSION ADMIT DX: REASON FOR VISIT DX: R51 Headache R29.810 Facial weakness R20.2 Paresthesia of skin FINAL DX: PRINCIPAL: G43.109 Migraine with aura, not intractable, without status migrainosus SECONDARY: I50.22 Chronic systolic (congestive) heart failure F17.210 Nicotine dependence, cigarettes, uncomplicated F32.9 Major depressive disorder, single episode, unspecified K21.9 Gastro-esophageal reflux disease without esophagitis Z82.3 Family history of stroke Z86.69 Personal history of other diseases of the nervous system and sense organs Z86.711 Personal history of pulmonary embolism Z95.810 Presence of automatic (implantable) cardiac defibrillator Z98.84 Bariatric surgery status PYMT PROC EAPG STAT DESCRIPTION DOCTOR NAME DATE NOTE: The code number assigned matches the documented diagnosis and / or procedure in the patient's chart. However, the narrative phrase printed from the coding software may appear abbreviated, or result in slightly different terminology. Coded By: Meryl Steen Date Saved: 02/09/2018 11:43 am Normal [facility] Coding Summary. CODING DATE: 018 [facility] STATUS: Home (Routine DC) PAYOR: Medicaid EAPG DESCRIPTION 0299 CAT SCAN - BRAIN 0457 VENIPUNCTURE 0408 LEVEL I HEMATOLOGY TESTS 0406 LEVEL I CLOTTING TESTS 0403 ORGAN OR DISEASE ORIENTED PANELS 0413 CARDIOGRAM 0401 LEVEL II CHEMISTRY TESTS 0471 PLAIN FILM 0496 MINOR PHARMACOTHERAPY 0495 MINOR CHEMOTHERAPY DRUGS 0400 LEVEL I CHEMISTRY TESTS 0398 LEVEL I ENDOCRINOLOGY TESTS 0490 INCIDENTAL TO MEDICAL, SIGNIFICANT PROCEDURE OR THERAPY VISIT 0272 SPEECH THERAPY AND EVALUATION 0081 ECHOCARDIOGRAPHY 0303 ANGIOGRAPHY, CEREBRAL 0301 CAT SCAN - OTHER 0271 PHYSICAL THERAPY 0450 OBSERVATION ADMIT DX: REASON FOR VISIT DX: R51 Headache R29.810 Facial weakness R20.2 Paresthesia of skin FINAL DX: PRINCIPAL: G43.109 Migraine with aura, not intractable, without status migrainosus SECONDARY: I50.22 Chronic systolic (congestive) heart failure F17.210 Nicotine dependence, cigarettes, uncomplicated F32.9 Major depressive disorder, single episode, unspecified K21.9 Gastro-esophageal reflux disease without esophagitis Z82.3 Family history of stroke Z86.69 Personal history of other diseases of the nervous system and sense organs Z86.711 Personal history of pulmonary embolism Z95.810 Presence of automatic (implantable) cardiac defibrillator Z98.84 Bariatric surgery status PYMT PROC EAPG STAT DESCRIPTION DOCTOR NAME DATE NOTE: The code number assigned matches the documented diagnosis and / or procedure in the patient's chart. However, the narrative phrase printed from the coding software may appear abbreviated, or result in slightly different terminology. Coded By: Meryl Steen Date Saved: 02/09/2018 11:42 am Normal [facility] Discharge Summaryon 02-09-20 Discharge Summary Admission Informatio n Admitting Physician - Carlos Alberto LEIJA, Eliel Holland Consulting Physician - Lexx LEIJA, Jin Samuel DOHospital Course Pt is a 37 F admitted with complains of headache, left sided parasthesias. Pt with AICD, unable to complete MRI. Pt was seen by neurology with Dr. Hallman. Pt had a negative CTA head and neck. Per discussion with neurology likely symptoms secondary to complicated migraine, resolved headache and parasthesias after depacon 500 mg IV q8 hours x 3 doses and IV magnesium. pt worked with PT/OT who recommended she was safe for home going. Pt to be placed on ASA 81 mg po q day as per neurology recs. Pt discharged home in improved condition to follow up with PCP and neurology as an outpatient. Significant Findings Chol: 145 mg/dL (02/08/18 06:17:00 EDT) Tri mg/dL (02/08/18 06:17:00 EDT) HDL: 58 mg/dL (02/08/18 06:17:00 EDT) LDL Direct: 77 mg/dL (02/08/18 06:17:00 EDT) VLDL: 15 mg/dL (02/08/18 06:17:00 EDT)Physical Exam Vitals & Measurements T: 36.9 ?C (Oral) TMIN: 36.5 ?C (Oral) TMAX: 36.9 ?C (Oral) HR: 59(Monitored) RR: 16 BP: 108/69 SpO2: 99% WT: 94.1 kg General: alert, no acute distress ENMT: oral mucosa moist, no pharyngeal erythema or exudate Cardiovascular: regular rate and rhythm, normal peripheral perfusion Respiratory: Lungs CTA, respirations non labored Abdomen: soft, NTND, +BS Skin: warm, dry, intact Extremities: no deformity, no trauma Neurological: motor strength equal & normal bilaterally, sensation equal & normal bilaterally, speech normalImages CTA Head 02/07/18 14:03:36 PLEASE SEE NECK CTA REPORT DATED: 02/07/2018. All CT scans at this facility use dose modulation, iterative reconstruction, and/or weight based dosing when appropriate to reduce radiation dose to as low as reasonably achievable. Signed By: Ric Oneal MD 02/07/18 13:47:14 GFR (mL/min/1/73m2) >60 Contrast: Isovue 370 Contrast amount in ml?s: 70 Signed By: Ric Oneal MD CTA Neck 02/07/18 14:02:56 IMPRESSION: NEGATIVE HEAD AND NECK CTAs. CLINICAL HISTORY: Sharp left-sided headache and blurred vision. COMPARISON: Head CT without contrast 02/06/2018. TECHNIQUE: Spiral enhanced images were obtained of the aortic arch to the skull vertex after the infusion of approximately 70 mL of Isovue 370 contrast with head and neck CTA protocol. Luminal narrowings are estimated by NASCET criteria. Routine and volume rendered images were obtained in the three-dimensional workstation. All CT scans at this facility use dose modulation, iterative reconstruction, and/or weight based dosing when appropriate to reduce radiation dose to as low as reasonably achievable. HEAD CTA FINDINGS: There is no significant stenosis, branch occlusion, aneurysm, or developmental vascular variations of concern identified in the anterior posterior intracranial arterial circulation. There is no abnormal enhancement identified. NECK CTA FINDINGS: The aortic arch and great vessel origins are widely patent without significant atherosclerotic plaquing or dissection. Both common carotid arteries, internal carotid arteries, and both vertebral arteries are widely patent in the neck. The left vertebral artery is dominant. There are no abnormal masses, lymphadenopathy, or incidental findings identified within the neck or visualized thoracic inlet. Signed By: Ric Oneal MD 02/07/18 13:47:14 GFR (mL/min/1/73m2) >60 Contrast: Isovue 370 Contrast amount in ml?s: 70 Signed By: Ric Oneal MD Plan Discharge Status: Improved Discharge Instructions Given: To patient Discharge disposition: Home Prescriptions reviewed with PatientPatient 1. Complicated migraine 2. Tobacco abuse disorder 3. Chronic systolic heart failure 4. History of pulmonary embolism 5. Depression 6. GERD without esophagitis 7. No contraindication to venous thromboembolism prophylaxis Orders: aspirin, 81 mg = 1 tab(s), Oral, Daily, # 30 tab(s), Refills(s) 0, Pharmacy: [facility]/pharmacy #[id number] aspirin, 81 mg = 1 tab(s), Tab-EC, Oral, Daily, Routine, Start date 02/07/18 10:11:00 EDT magnesium sulfate, 2 gram = 50 mL, Soln-IV, IV Piggyback, q12hr for 2 dose(s), Stop date 02/08/18 15:59:00 EDT, Routine, Start date 02/07/18 16:00:00 EDT, 25 mL/hr, Infuse over 2 hour(s) Sodium Chloride 0.9% intravenous solution 500 mL, 500 mL, IV, 20 mL/hr, Routine, Start date 02/07/18 15:21:00 EDT, 25 hour(s), Total volume (mL): 500 valproic acid, 500 mg = 5 mL, IV Piggyback, q8hrFT for 3 dose(s), Stop date 02/08/18 15:59:00 EDT, Routine, Start date 02/07/18 16:00:00 EDT, 105 mL/hr, Infuse over 60 minute(s) CTA Head CTA Neck Echo w/ Saline Bubbles Extra Lav Tube Lipid Panel Outpatient Occupational Therapy Evaluate Patient, Develop a Plan of Care and Implement Plan Physical Therapy Evaluate Patient, Develop a Plan of Care and Implement Plan Discharge Medication List Prescriptions aspirin 81 mg Oral EC Tab, 81 mg= 1 tab(s), Oral, Daily Home CeleXA 20 mg Tab, 20 mg= 1 tab(s), Oral, Daily Lasix 20 mg Tab, 20 mg= 1 tab(s), Oral, BID, PRN olanzapine 5 mg oral tablet, 5 mg= 1 tab(s), Oral, Daily pantoprazole 40 mg Oral EC Tab, 40 mg= 1 tab(s), Oral, BID Xanax 1 mg Tab, 1 mg= 1 tab(s), Oral, TID, PRN Follow-up With When Contact Information Amador Lexx 02/24/2018 01:30 PM EDT [address] [place] [phone]- Business (1) Additional Instructions: ROCK DUNBAR 02/16/2018 09:45 AM EDT [address] [place] [address]- Business (1) Additional Instructions: Patient Education Core Measures: Stroke (Cerebrovascular Accident) [facility], (Custom) [facility] Comment on above: Result Comment: Elec tronically Signed By: Alona LEIJA, Maakyla\.br\Date and Time Signed: 02/08/18 10:03 EDT Inpatient Clinical Summaryon 02-08-2018 Inpatient Clinical Summary [place] [id number] Clinical Summary Person Information:Name: CARITO RIOS Age: 37 Years : 1980 12:00 AM Sex: Female PCP: ROCK DUNBAR MD Marital Status: Race:White Ethnicity:Non- or Language:Omani Visit Id: Visit Reason:Headache; HISTORY BELLS PALSY AND STROKE LIKE SYMPTOMS Speciality: Acuity: 3 Enc Type: Observation Med Service: Medical Arrival:02/06/2018 9:55 PM Discharge: Dispo Type: Admitted as IP to this Hosp Address:[address] [place] [address] [address] [facility] [id number] Provider Notes: Diagnosis:1:Complicated migraine; 2:Tobacco abuse disorder; 3:Chronic systolic heart failure; 4:History of pulmonary embolism; 5:Depression; 6:GERD without esophagitis; 7:No contraindication to venous thromboembolism prophylaxis Problems Active GERD without esophagitis Depression History of pulmonary embolism Chronic systolic heart failure Smoker Cardiomyopathy CHF - Congestive heart failure Pulmonary embolism (2008) Smoking Status:Current Every Day Smoker Functional Status:Sensory Deficits: No hearing deficits, Visual impairment, left eyeHistory of Falls: Within last three monthsMobility Assistance Prior to Admission: IndependentADLs: IndependentCurrent Level of Assistance for Self-Care/Mobility: Cognitive Status:Oriented x 3 Allergies amoxicillin (Rash) Bactrim (Rash) Mefoxin (Rash) morphine (Itching) Measurements:Height: 175 cmWeight: 94.1 kgBlood Pressure: 108 mmHg / 69 mmHgBMI: 30.82 kg/m2 Procedures No Procedures Documented Immunizations No Immunizations Documented This Visit Final Med List:alprazolam (Xanax 1 mg Tab) 1 Tabs By Mouth 3 times a day as needed for anxiety.aspirin (aspirin 81 mg Oral EC Tab) 1 Tabs By Mouth every day. Refills: 0.citalopram (CeleXA 20 mg Tab) 1 Tabs By Mouth every day.furosemide (Lasix 20 mg Tab) 1 Tabs By Mouth 2 times a day as needed Edema.olanzapine (olanzapine 5 mg oral tablet) 1 Tabs By Mouth every day.pantoprazole (pantoprazole 40 mg Oral EC Tab) 1 Tabs By Mouth 2 times a day. Care Team Members:Attending Physician: Eliel Carcamo MD NConsulting Physician: Jin Herrera DO, MD, Delisa Physician: Follow up:With: Address: When: ROCK DUNBAR [address] [place] [address] Business (1) 02/16/18 09:45:00 Comments: With: Address: When: Amador Hallman [address] [place] [address] [place], [place] [id number] Business (1) 02/24/18 13:30:00 Patient Education Information: Migraine Headache, [id number] Normal [facility] Inpatient Patient Summaryon 02-08-2018 Inpatient Patient Summary [address] [address] Patient Discharge Instructions PERSON INFORMATION Name: CARITO RIOS Date of : 1980 12:00 AM Current Date: 02/08/18 11:05:41 PHYSICIANS Admitting Physician: Eliel Carcamo MD [facility] Physician: HOWARD DUNBAR MD Comment: Discharge Diagnosis: 1:Complicated migraine; 2:Tobacco abuse disorder; 3:Chronic systolic heart failure; 4:History of pulmonary embolism; 5:Depression; 6:GERD without esophagitis; 7:No contraindication to venous thromboembolism prophylaxisCondition at Discharge: Improved CARITO RIOS has been given the following list of follow-up instructions, prescriptions, and patient education materials: PATIENT FOLLOW-UP INFORMATIONDiet: Fat Modified- Low cholesterol, Low Sodium- 2000 mgDischarge Activity: Ambulate as toleratedDischarge Restrictions: Wound Care Instructions: Remove Your Dressing In DaysCall Your Doctor For: Return to Work: IF UNABLE TO CONTACT YOUR PHYSICIAN AND YOU FEEL IT IS AN EMERGENCY, GO TO THE NEAREST EMERGENCY ROOM OR CALL 911 Home Treatment: Devices/Equipment: Special Services: Additional Instructions: Primary Care Physician to provide the following pending test results: NoneFollow up:With: Address: When: ROCK DUNBAR [address] [place] [id number] Business (1) 02/16/18 09:45:00 Comments: With: Address: When: Amador Hallman [address] [place] [address] [place] [id number] Business (1) 02/24/18 13:30:00 In the event that this physician does not participate in your insurance network, please consult with your insurance company to find a nearby participating provider. Comment: TOVA Dnih MACKENZIE L, have received the attached patient education materials/instructions and have verbalized understanding:Patient Signature Date Clinican/Nurse Signature Date HERE ARE THE MEDICATION CHANGES THAT OCCURRED DURING YOUR HOSPITAL STAY [facility]ations[id number] [address] [place] [address], [phone] (aspirin 81 mg Oral EC Tab) 1 Tabs By Mouth every day. Refills: 0.Last Dose: Next Dose: Medica tions to Continue with No ChangesOther Medicationsalprazolam (Xanax 1 mg Tab) 1 Tabs By Mouth 3 times a day as needed for anxiety.Last Dose: Next Dose: citalo pram (CeleXA 20 mg Tab) 1 Tabs By Mouth every day.Last Dose: Next Dose: furose mide (Lasix 20 mg Tab) 1 Tabs By Mouth 2 times a day as needed Edema.Last Dose: Next Dose: olanza pine (olanzapine 5 mg oral tablet) 1 Tabs By Mouth every day.Last Dose: Next Dose: pantop razole (pantoprazole 40 mg Oral EC Tab) 1 Tabs By Mouth 2 times a day.Last Dose: Next Dose: Commen t: MEDICATION LIST PROVIDED FOR YOU IS A LIST OF YOUR CURRENT MEDICATIONS. PLEASE CARRY THIS WITH YOU AT ALL TIMES. alprazolam (Xanax 1 mg Tab) 1 Tabs By Mouth 3 times a day as needed for anxiety.aspirin (aspirin 81 mg Oral EC Tab) 1 Tabs By Mouth every day. Refills: 0.citalopram (CeleXA 20 mg Tab) 1 Tabs By Mouth every day.furosemide (Lasix 20 mg Tab) 1 Tabs By Mouth 2 times a day as needed Edema.olanzapine (olanzapine 5 mg oral tablet) 1 Tabs By Mouth every day.pantoprazole (pantoprazole 40 mg Oral EC Tab) 1 Tabs By Mouth 2 times a day.Pharmacy Information: JIMI Navya comment: PATIENT EDUCATION INFORMATIONInstructions:Migrain e HeadacheA migraine headache is very bad, throbbing pain on one or both sides of your head. Talk to your doctor about what things may bring on (trigger) your migraine headaches. HOME CARE? Only take medicines as told by your doctor.? Lie down in a dark, quiet room when you have a migraine.? Keep a journal to find out if certain things bring on migraine headaches. For example, write down:? What you eat and drink.? How much sleep you get.? Any change to your diet or medicines.? Lessen how much alcohol you drink.? Quit smoking if you smoke.? Get enough sleep.? Lessen any stress in your life.? Keep lights dim if bright lights bother you or make your migraines worse.GET HELP RIGHT AWAY IF:? Your migraine becomes really bad.? You have a fever.? You have a stiff neck.? You have trouble seeing.? Your muscles are weak, or you lose muscle control.? You lose your balance or have trouble walking.? You feel like you will pass out (faint), or you pass out.? You have really bad symptoms that are different than your first symptoms.MAKE SURE YOU:? Understand these instructions. ? Will watch your condition.? Will get help right away if you are not doing well or get worse.Document Released: 03/16/2009 Document Revised: 08/29/2012 Document Reviewed: 02/12/2014ExitCare? Patient Information ?2014 [employer]. This information is not intended to replace advice given to you by your health care provider. Make sure you discuss any questions you have with your health care provider. Medication Leaflets: Thank you for choosing [facility] Normal [facility] Interdisciplinary Note - Gustavo e Manageron 02-08-2018 Thyrotropin Qn Rounding with Dr. Sally marti, Perez (pharm), Lisa RN, Yane DE LA VEGA, white board updated, reviewed hospital status with patient, she denies any needs and has no concerns, Dr. Sage reviewed plan of care; patient voices understanding. No needs identified, her boyfriend will come and pick her up upon discharge. Normal [facility] Interdisciplinary Note - PTo n 02-08-2018 Interdisciplinary Note - PT P.T. Evaluation done this date. Pt. with on AM-PAC this date. Safe and independent with all functional activities. No further P.T. needs. Normal [facility] Lipid Panelon 02-08-2018 Cholesterol in HDL mass conc 58 mg/dL Invalid Interpretation Code [facility] Comment on above: Result Comment: HDL > or equal to 60 mg/dL: Low cardiovascular riskHDL < 40 mg/dL : High cardiovascular risk Performed By: #### 2 291675, 1023722, 53953190, 8167504, 4353105, 84052438, 3847233, 1416013, 49596106, 51277773 ####[facility] [address] [place] [address] Cholesterol in LDL mass conc 77 mg/dL Normal <=129 [facility] Comment on above: Performed By: #### 2 483252, 0907025, 64759239, 8340118, 3907880, 79145367, 3729701, 0595993, 64818513, 59475454 ####[facility] [address] [place] [address] Cholesterol in VLDL mass conc 15 mg/dL Normal 7-40 [facility] Comment on above: Performed By: #### 2 558828, 1902806, 05741458, 3452815, 2806335, 05563356, 9165600, 0373837, 87859660, 17327667 ####[facility] [address] [place] [address] Cholesterol mass conc 145 mg/dL Normal 120-200 [facility] Comment on above: Performed By: #### 2 598776, 6190167, 12609957, 5902449, 5877795, 23837599, 9781368, 4862640, 59615540, 69149803 ####[facility] [address] [place] [address] Triglyceride mass conc 73 mg/dL Normal <=149 [facility] Comment on above: Performed By: #### 2 585742, 8897791, 55134987, 9550958, 6318733, 96956155, 7645510, 3339949, 64942396, 75810086 ####[facility] [address] [place] [address] Progress Note-Physicianon Protein mass conc Assessment/Plan The patient is a 37-year-old right-handed white female with a history of Nonischemic cardiomyopathy and pulmonary embolism with reported family history of stroke at a young age who was admitted to the hospital with sudden onset of Left sided numbness and paresthesias with possible weakness and left-sided headache. The patient was evaluated by [facility] stroke service for acute stroke therapy and was felt to not be a candidate. Possible etiologies include cerebral ischemia or transient ischemic attack secondary to artery to artery embolus, cerebral artery thrombosis, or cardioembolic event. I cannot exclude cerebral hypoperfusion from intracranial or extracranial cerebral artery stenosis contributing to the patient's symptoms. Due to the high morbidity and mortality associated with stroke the patient is admitted to the hospital for further workup and evaluation. The patient states that her symptoms have improved back to baseline. She denies any unilateral numbness or weakness. She states her headache has improved -I Have personally reviewed and reviewed with the patient today CT angiogram of the brain to assess for any intracranial cerebral artery stenosis If it is determined that the patient's defibrillator is MRI compatible. If it is not I recommend getting a CT angiogram of the head and neck. -The patient could not get an MRI scan of the brain at [facility] due to radiology policy -I recommend obtaining an ultrasound of the carotid arteries to assess for any significant carotid artery stenosis which may contribute to artery to artery embolus or cerebral hypoperfusion -I recommend obtaining a cardiac echo to assess for any hypokinesis, akinesis, valve disease, or cardiac thrombus which may contribute to a cardioembolic event -I recommend continuing the patient on telemetry to assess for a cardiac arrhythmia which may contribute to a cardioembolic event -I recommend Aspirin 81 mg daily for secondary stroke prevention -I recommend to continue monitoring the patient's blood pressure to keep them normotensive -I recommend to continue monitoring the patient's blood sugar to keep them normoglycemic -I recommend obtaining a lipid panel and hemoglobin A1c to assess the patient's stroke risk factors -I recommend speech therapy assessed the patient for swallow evaluation and therapy needs -I recommend physical therapy and occupational therapy assessed the patient for therapy and rehabilitation needs -I recommend DVT prevention with SCD stockings or an equivalent -I counseled the patient on stroke signs and symptoms and advised them to alert nursing should save developed these symptoms while in the hospital and in the future go immediately to the emergency room -I counseled the patient on the possible diagnoses, prognosis, evaluation, and treatment options. I answered all questions. -I discussed the above recommendations with the hospitalist Dr Sage - The patient can follow up in outpatient neurology clinic 1. Complicated migraine 2. Tobacco abuse disorder 3. Chronic systolic heart failure 4. History of pulmonary embolism 5. Depression 6. GERD without esophagitis 7. No contraindication to venous thromboembolism prophylaxis Subjective Review of Systems The patient denies rhinorrhea, sore throat, chest pain, shortness of breath, muscle pain, joint pain, abnormal bleeding, urinary incontinence, difficulty sleeping, or depression. [2] Objective Vitals & Measurements T: 36.5 ?C (Oral) TMIN: 36.5 ?C (Oral) TMAX: 36.8 ?C (Oral) HR: 60(Monitored) RR: 16 BP: 121/81 SpO2: 98% WT: 94.1 kg Intake & Output This visit (24 hour periods starting at 07:00) 02/08/18 * 02/07/18 02/06/18 Total Summary Intake mL -- 830 0.5 Output mL -- -- -- Fluid Balance -- 830 0.5 Intake (5) Oral Intake mL -- 440 -- Sodium Chloride 0.9% intravenous solution 500 mL mL -- 90 -- Sodium Chloride 0.9%, valproic acid mL -- 200 -- diphenhydrAMINE mL -- -- 0.5 magnesium sulfate mL -- 100 -- Total -- 830 0.5 Output (0) Counts (1) Urine Count -- 1 -- * This column has not completed the indicated time period. Physical Exam The patient is awake and alert. The patient is oriented ?3. Language is intact including comprehension and fluency, fund of knowledge is intact, memory is intact Cranial nerves: Pupils are equal round and reactive to light and accommodation, extraocular movements intact, visual fuentes are full to confrontation, face is Reveals decreased contraction with left lower and mid facial portions and intact eyebrow raising bilaterally, sensations is diminished to light touch in the left face, palate elevates bilaterally, tongue protrudes midline, hearing is intact to finger rub, shoulder shrug is symmetric Motor exam: Strength testing is 5- out of 5 MRC scale strength in The left upper and lower extremity and 5 out of 5 MRC scale strength elsewhere. Deep tendon reflexes are 2+ and symmetric. Tone is normal throughout. Plantar reflexes flexor bilaterally Sensory exam: Sensations Reveals diminished light touch in the left upper and lower extremity Cerebellar exam: Klyxtw-az-dyml reveals Some dysmetria in the left finger to nose. Gait is normal The neurological exam was performed by a healthcare professional which was witnessed and supervised by me via video telemedicine visit consented to by the patient or appropriate patient transportation services representative. [3] Lab Results Chol: 145 mg/dL (02/08/18 06:17:00 EDT) Tri mg/dL (02/08/18 06:17:00 EDT) HDL: 58 mg/dL (02/08/18 06:17:00 EDT) LDL Direct: 77 mg/dL (02/08/18 06:17:00 EDT) VLDL: 15 mg/dL (02/08/18 06:17:00 EDT) Diagnostic Results (02/07/2018 13:47 EDT CTA Neck) * Final Report * Reason For Exam Stroke POWERSCRIBE REPORT IMPRESSION: NEGATIVE HEAD AND NECK CTAs. CLINICAL HISTORY: Sharp left-sided headache and blurred vision. COMPARISON: Head CT without contrast 02/06/2018. TECHNIQUE: Spiral enhanced images were obtained of the aortic arch to the skull vertex after the infusion of approximately 70 mL of Isovue 370 contrast with head and neck CTA protocol. Luminal narrowings are estimated by NASCET criteria. Routine and volume rendered images were obtained in the three-dimensional workstation. All CT scans at this facility use dose modulation, iterative reconstruction, and/or weight based dosing when appropriate to reduce radiation dose to as low as reasonably achievable. HEAD CTA FINDINGS: There is no significant stenosis, branch occlusion, aneurysm, or developmental vascular variations of concern identified in the anterior posterior intracranial arterial circulation. There is no abnormal enhancement identified. NECK CTA FINDINGS: The aortic arch and great vessel origins are widely patent without significant atherosclerotic plaquing or dissection. Both common carotid arteries, internal carotid arteries, and both vertebral arteries are widely patent in the neck. The left vertebral artery is dominant. There are no abnormal masses, lymphadenopathy, or incidental findings identified within the neck or visualized thoracic inlet. Signature Line FINAL REPORT Dictated: 02/07/2018 1:59 pm Ric Oneal MD [4] (02/07/2018 13:47 EDT CTA Head) * Final Report * Reason For Exam Stroke POWERSCRIBE REPORT PLEASE SEE NECK CTA REPORT DATED: 02/07/2018. All CT scans at this facility use dose modulation, iterative reconstruction, and/or weight based dosing when appropriate to reduce radiation dose to as low as reasonably achievable. Signature Line FINAL REPORT Dictated: 02/07/2018 2:00 pm Ric Oneal MD Signed (Electronic Signature): 02/07/2018 2:00 pm Signed by: Ric Oneal MD Transcribed by: SOLOMON Technologist: RANJITH Technical Comments GFR (mL/min/1/73m2) >60 Contrast: Isovue 370 Contrast amount in ml's: 70 [5] (02/07/2018 11:26 EDT Echo w/ Saline Bubbles) * Preliminary Report * Reason For Exam CVA Report Patient Height: 175 cm Patient Weight: 94 kg Blood Pressure: 114/72 1. LVIDd (3.7-5.5cm) 5.5 cm 2. LIVIDs (2.2-4.0cm) 3.6 cm 3. IVSd (0.6-1.2cm) 0.90 cm 4. LVPWd (0.5-1.0cm) 1.0 cm 5. LAs (1.9-4.0cm) 4.2 cm 6. LA Vol. Index (22+6) 29 mL 7. AOd Root (2.0-3.7cm) 2.6 cm 8. AO Annulus (1.4-2.6cm) _ cm 9. AO Sinus of Valsalva (2.1-3.5cm) _ cm 10. AO Sinotubular Junction (1.7-3.4cm) _ cm 11. Ascending Aorta (2.1-3.4cm) _ cm 12. RVIDd (.7-2.6cm) 3.4 cm 13. AoV Peak Gradient _ mmHg 14. AoV Mean Gradient _ mmHg 15. LVOT Diam _ cm INDICATION: Stroke. PROCEDURE: The study is 2D, M-Mode, color flow complete Doppler study. FINDINGS: 1. The left ventricle demonstrates normal wall thickness. The left ventricle is minimally dilated. Systolic function and ejection fraction appear normal with estimated ejection fraction of 55-60%. No segmental wall motion abnormality is noted. No intracavitary thrombus or mass is seen. 2. Left atrial size upper limits of normal. 3. Right atrial size appears normal. 4. Right ventricle appears structurally normal. Linear echodensity consistent with a pacing lead is seen. 5. Mitral valve appears structurally normal. Doppler evaluation with trace mitral regurgitation. No evidence for stenosis. 6. Tricuspid valve appears structurally normal. Doppler evaluation with trace tricuspid regurgitation. Doppler estimate of right ventricular systolic pressure is 28 mm Hg which is within normal limits. 7. Aortic valve appears structurally normal. Doppler evaluation without evidence for stenosis or regurgitation. 8. Pulmonic valve appears structurally normal in limited views. 9. No pericardial effusion is seen. 10. Aorta appears unremarkable in limited views. 11. Inferior vena caval dimension upper limits of normal. SUMMARY/CONCLUSION: Echocardiogram and Doppler study which demonstrates minimally dilated left ventricle with normal ejection fraction. Atrial sizes appear normal. Saline contrast appears to be negative for any evidence of flow across the septum. Mitral valve with trace mitral regurgitation. Tricuspid valve with trace tricuspid regurgitation. Aortic valve appears unremarkable. No prior study for comparison. Signature Line PRELIMINARY REPORT Transcribed by: geovanny [6] Problem List/Past Medical History Ongoing Cardiomyopathy CHF - Congestive heart failure Chronic systolic heart failure Depression GERD without esophagitis History of pulmonary embolism Pulmonary embolism Smoker Historical No qualifying data Medications Inpatient aspirin 81 mg Oral EC Tab, 81 mg= 1 tab(s), Oral, Daily CeleXA 20 mg Tab, 20 mg= 1 tab(s), Oral, Daily Depacon 500 mg IVPB ibuprofen 800 mg Tab, 800 mg= 1 tab(s), Oral, q6hr, PRN Magnesium 2 gram IVPB, 2 gram= 50 mL, IV Piggyback, q12hr olanzapine 5 mg Tab, 5 mg= 1 tab(s), Oral, Daily Pantoprazole [address] Tab, 40 mg= 1 tab(s), Oral, BID Sodium Chloride 0.9% IV Luann 500 mL 500 mL, 500 mL, IV Tylenol 325 mg Tab, 650 mg= 2 tab(s), Oral, q6hr, PRN Xanax 1 mg Tab, 1 mg= 1 tab(s), Oral, TID, PRN Zofran 4 mg/2 mL Injection, 4 mg= 2 mL, IV Push, q6hr, PRN Home CeleXA 20 mg Tab, 20 mg= 1 tab(s), Oral, Daily Lasix 20 mg Tab, 20 mg= 1 tab(s), Oral, BID, PRN olanzapine 5 mg oral tablet, 5 mg= 1 tab(s), Oral, Daily pantoprazole 40 mg Oral EC Tab, 40 mg= 1 tab(s), Oral, BID Xanax 1 mg Tab, 1 mg= 1 tab(s), Oral, TID, PRN[1] Consult Note; Claudia Lu RN 02/07/2018 09:10 EDT[2] Consult Note; Claudia Lu RN 02/07/2018 09:10 EDT[3] Consult Note; Claudia Lu RN 02/07/2018 09:10 EDT[4] CTA Neck; Ric Oneal MD 02/07/2018 13:47 EDT[5] CTA Head; Ric Oneal MD 02/07/2018 13:47 EDT[6] Echo w/ Saline Bubbles; Marah RDCS, Jolly 02/07/2018 11:26 EDT Normal [facility] Comment on above: Result Comment: Elec tronically Signed By: Aly MAGUIRE, Claudia Jalloh\.br\Date and Time Signed: 02/08/18 07:42 EDT\.br\Electronically Co-Signed By: Amador Hallman MD\.br\Date and Time Co-Signed: 02/08/18 08:52 EDT Auto Diffon 02-07-2018 Basophils Auto #/vol (Bld) 0.8 % Normal 0.0-2.0 [facility] Comment on above: Order Comment: Order added by Discern Expert. Performed By: #### 2 565484, 0631548, 07372653, 7774460, 5421069, 30224365, 0045625, 0101134, 00426674, 01916266 ####[facility] [address] [place] [address] Basophils/Leukocyt es Auto Pure number fraction (Bld) 0.0 E9/L Normal 0.0-0.2 [facility] Comment on above: Order Comment: Order added by Discern Expert. Performed By: #### 2 774382, 0472810, 21405042, 2825362, 4546570, 70042225, 0676731, 5678827, 33079462, 63539462 ####[facility] [address] [place] [address] Eosinophils/100 WBC Auto (Bld) 1.8 % Normal 0.0-8.0 [facility] Comment on above: Order Comment: Order added by Discern Expert. Performed By: #### 2 596620, 7742234, 80722845, 0374831, 3804055, 88622818, 8252165, 5617882, 61027265, 69325097 ####[facility] [address] [place] [address] Eosinophils/Leukoc ytes Auto Pure number fraction (Bld) 0.1 E9/L Normal 0.0-0.5 [facility] Comment on above: Order Comment: Order added by Discern Expert. Performed By: #### 2 252620, 6238309, 79694587, 9719285, 4182301, 10114189, 2555738, 7051752, 28588523, 53232660 ####[facility] [address] [place] [address] Lymphocytes/100 WBC Auto (Bld) 18.0 % Normal 14.0-50.0 [facility] Comment on above: Order Comment: Order added by Discern Expert. Performed By: #### 2 287792, 2665663, 53556624, 6309508, 0297202, 34408765, 0007558, 1180882, 99622020, 27678745 ####[address] [address] Lymphocytes/Leukoc ytes Auto Pure number fraction (Bld) 0.9 E9/L Low 1.0-4.0 [facility] Comment on above: Order Comment: Order added by Discern Expert. Performed By: #### 2 560488, 3461282, 13309927, 0888486, 6788479, 03445524, 1270531, 3639080, 37023351, 46492237 ####[address] [place] [address] Monocytes/100 WBC Auto (Bld) 9.0 % Normal 4.0-14.0 [facility] Comment on above: Order Comment: Order added by Discern Expert. Performed By: #### 2 251269, 9561295, 50969043, 3248708, 1795384, 77607121, 3597641, 5592527, 33793699, 66912832 ####[address] [place] [address] Monocytes/Leukocyt es Auto Pure number fraction (Bld) 0.5 E9/L Normal 0.2-1.0 [facility] Comment on above: Order Comment: Order added by Discern Expert. Performed By: #### 2 180811, 9466127, 02159051, 4933604, 5120260, 35029074, 6335514, 2391084, 23072652, 32759944 ####[facility] [address] [place] [address] Neutrophils/100 WBC Auto (Bld) 70.4 % Normal 36.0-75.0 [facility] Comment on above: Order Comment: Order added by Discern Expert. Performed By: #### 2 401751, 0820569, 13350628, 7034260, 4592141, 58795221, 7552210, 0358404, 83008977, 59899257 ####[address] [place] [address] Neutrophils/Leukoc ytes Auto Pure number fraction (Bld) 3.6 E9/L Normal 2.0-7.5 [facility] Comment on above: Order Comment: Order added by Discern Expert. Performed By: #### 2 485573, 0351343, 71034728, 0845134, 2093650, 03578805, 8126839, 5472906, 74180239, 99407629 ####[facility] [address] [place] [address] BB Draw & Holdon 02-07-2018 BB D&H Sample drawn for Blood Ba Normal [facility] Comment on above: Performed By: #### 2 359894, 2566157, 76187345, 3987853, 7547601, 03357999, 9457175, 4970813, 55013824, 27485159 ####[facility] [address] [place] [address] [facility] Creatinine mass conc 0.7 mg/dL Normal 0.5-1.3 [facility] Comment on above: Performed By: #### 2 425131, 0799906, 39342023, 0588009, 1091995, 12239638, 5680106, 8989255, 51278205, 56799678 ####[facility] [address] [place] [address] Urea nitrogen mass conc 9 mg/dL Normal 5-21 [facility] Comment on above: Performed By: #### 2 792793, 8196691, 85580854, 8034036, 2498560, 73027135, 5937091, 4120468, 78762181, 13920620 ####[facility] [address] [place] [address] Urea nitrogen/Creatinin e mass ratio 13 No Units Normal 10-20 [facility] Comment on above: Performed By: #### 2 233585, 3468267, 50856011, 3667296, 0995008, 79994630, 4229040, 4056539, 12365185, 65174021 ####[facility] [address] [place] [address] Anion gap 3 molar conc 9 mmol/L Normal 6-16 [facility] Comment on above: Performed By: #### 2 842067, 4863472, 98364584, 8193393, 2660641, 77656386, 3561490, 4342891, 75719950, 75124102 ####[facility] [address] [place] [address] Calcium mass conc 8.5 mg/dL Low 8.9-11.1 [facility] Comment on above: Performed By: #### 2 790175, 4111684, 06487355, 7898702, 4154487, 49709824, 4882337, 5201142, 83118989, 98114892 ####[facility] [address] [place] [address] Chloride molar conc 105 mmol/L Normal 101-111 [facility] Comment on above: Performed By: #### 2 685599, 6173621, 57284917, 0315327, 4450058, 69689376, 5579417, 3423907, 32973216, 91467322 ####[facility] [address] [place] [address] CO2 molar conc 27 mmol/L Normal 21-31 [facility] [facility] Comment on above: Performed By: #### 2 [id number], 0622530, 99060868, 4470231, 4019186, 63134391, 8517044, 1041307, 45748540, 45710035 ####[facility] [address] [place] [address] Glucose mass conc 92 mg/dL Normal 55-199 [facility] Comment on above: Result Comment: If t his glucose result represents a fasting glucose, interpretation should refer to the following reference range: 55-99 mg/dL Performed By: #### 2 799814, 4895472, 32535458, 1531074, 9565844, 78185245, 6141964, 5823678, 96534891, 66314524 ####[facility] [address] [place] [address] Potassium molar conc 4.0 mmol/L Normal 3.5-5.3 [facility] Comment on above: Performed By: #### 2 529634, 8606659, 68021165, 2675863, 7928093, 39716938, 6214348, 4108584, 93396155, 97392041 ####[facility] [address] [place] [address] Sodium molar conc 137 mmol/L Normal 135-145 [facility] Comment on above: Performed By: #### 2 320146, 5619691, 61212567, 4943741, 0745320, 63176497, 2116467, 8720535, 53891552, 59611970 ####[facility] [address] [place] [address] CBC w/ Auto Diffon 8 Erythrocyte distribution width Auto Ratio (RBC) 13.1 % Normal 10.9-14.2 [facility] Comment on above: Performed By: #### 2 082301, 6371029, 38744666, 1546935, 9664248, 16251711, 9216314, 3708240, 92508220, 01900082 ####[facility] [address] [place] [address] Hematocrit Auto Volume Fraction (Bld) 37.0 % Normal 34.0-46.0 [facility] Comment on above: Performed By: #### 2 831954, 7881770, 51601047, 7071622, 7774715, 60434450, 0409514, 7328458, 02783921, 86876193 ####[facility] [address] [place] [id number] Hemoglobin mass conc (Bld) 13.0 g/dL Normal 12.0-16.0 [facility] Comment on above: Performed By: #### 2 826336, 1167096, 91320525, 4715455, 9058547, 24124425, 8430564, 6164396, 27496750, 83515281 ####[place] 1716257 MCH Auto Entitic mass (RBC) 29.8 pg Normal 27.0-34.0 [facility] Comment on above: Performed By: #### 2 937420, 9698082, 30749180, 0473691, 5175716, 16750770, 5741483, 2590043, 93766597, 97013240 ####[place] 1716257 MCHC Auto mass conc (RBC) 35.1 g/dL Normal 31.4-39.3 [facility] Comment on above: Performed By: #### 2 880418, 7391242, 78502934, 3944179, 3252857, 58419479, 8868493, 1714290, 46685877, 44520200 ####[facility] [address] [place] [address] MCV Auto Entitic volume (RBC) 84.8 fL Normal 80.0-100.0 [facility] Comment on above: Performed By: #### 2 907179, 3865273, 00001189, 3099885, 9147245, 48665108, 6709694, 3241152, 50056635, 79174812 ####[address] [place] [address] Platelet mean volume Auto Entitic volume (Bld) 8.4 fL Normal 6.4-10.8 [facility] Comment on above: Performed By: #### 2 971159, 4886055, 74651951, 2164651, 7806088, 51236755, 5764951, 1857166, 17924445, 40587291 ####[facility] [address] [place] [address] Platelets Auto #/vol (Bld) 166.0 E9/L Normal 150.0-500. 0 [facility] Comment on above: Performed By: #### 2 696980, 4393671, 78257861, 9568163, 1146347, 65314135, 5943235, 5070321, 29415457, 16321329 ####[address] [address] RBC Auto #/vol (Bld) 4.4 E12/L Normal 4.3-5.9 [facility] Comment on above: Performed By: #### 2 874383, 1812831, 87245173, 2761210, 2530032, 61851271, 4175855, 9575967, 70183740, 00626201 ####[facility] [address] [place] [address] WBC corrected for nucl RBC Auto #/vol (Bld) 5.1 E9/L Normal 4.0-11.0 [facility] Comment on above: Performed By: #### 2 610970, 8879227, 39552753, 9018949, 9331037, 89475865, 5125149, 2971817, 04478603, 68652710 ####[address] [address] [address] Head or Brain w/o Libertadas nika 02-07-2018 CT Head or Brain w/o Contrast Exam Date/Time:02/06/2018 23:56 EDTReason for Exam:StrokeReportIMPRESSION: NEGATIVE CT SCAN OF THE BRAIN. CLINICAL HISTORY: Stroke. Left-sided weakness.COMMENT: Unenhanced images were obtained.The ventricles and basal cisterns appear within normal limits. The cortical sulciappear normal. There is no mass effect nor midline shift. No abnormal attenuationwithin the brain is noted. There is no evidence of recent intracranial hemorrhagenor extra-axial hematoma. No mass lesion is evident. No skull fracture is noted. All CT scans at this facility use dose modulation, iterative reconstruction, and/orweight based dosing when appropriate to reduce radiation dose to as low as reasonablyachievable. FINAL REPORT Dictated: 02/07/2018 8:[address] M.D. Signed (Electronic Signature): 02/07/2018 8:26 am Signed by: Yaw Lane M.D. Transcribed by: SOLOMON Technologist: HERMANN Live [facility] CTA Headon 02-07-2018 CTA Head Exam Date/Time:2017 13:47 EDTReason for Exam:StrokeReportPLEASE SEE NECK CTA REPORT DATED: 02/07/2018. All CT scans at this facility use dose modulation, iterative reconstruction, and/orweight based dosing when appropriate to reduce radiation dose to as low as reasonablyachievable. FINAL REPORT Dictated: 02/07/2018 2:00 pm Ric Oneal MD Signed (Electronic Signature): 02/07/2018 2:00 pm Signed by: Ric Oneal MD Transcribed by: SOLOMON Technologist: SBTechnical CommentsGFR (mL/min/1/73m2) >60Contrast: Isovue 370Contrast amount in ml's: 70 Normal [facility] Consultation Noteon 02-08-20 18 Consultation Note Chief Complaint head ache Reason for Consultation headache History of Present Illness Ms. Rios is a 37 year old female with a past medical history of pulmonary embolism not currently on Anticoagulation, nonischemic Cardiomyopathy status post implantable cardiac defibrillator/PPM 2008, with EF of 12% now recovered to 45%, recurrent Rae's palsy, gastric bypass 2013 who I was asked to see in neurological consultation for possible stroke. The patient states that she developed acute onset of left-sided headache yesterday at approximately 10:30. She states that this was associated with left-sided facial droop and left arm and leg paresthesias. She states that these symptoms lasted until 6 or 7 AM this morning. They occurred at 10:30 PM last night. The patient wasn't violated with a noncontrast CT scan of the brain which I personally reviewed and does not reveal evidence of acute infarct or hemorrhage. The patient was evaluated by [facility] stroke service and was not felt to be a acute intervention candidate. The patient was admitted to the hospital for further workup and evaluation. The patient has a pacemaker which is not clear if it is MRI compatible. The patient sees a rn x ray from [facility]. The patient states she still has some residual headache but her paresthesias and weakness have improved. The patient denies headaches in the past. She denies any history of stroke or strokelike symptoms. The patient does have a history of Rae's palsy on the left. Review of Systems The patient denies rhinorrhea, sore throat, chest pain, shortness of breath, muscle pain, joint pain, abnormal bleeding, urinary incontinence, difficulty sleeping, or depression. Physical Exam Vitals & Measurements T: 36.8 ?C (Oral) TMIN: 36.2 ?C (Tympanic) TMAX: 36.8 ?C (Oral) HR: 60(Apical) RR: 19 BP: 109/70 SpO2: 100% WT: 94.4 kg The patient is awake and alert. The patient is oriented ?3. Language is intact including comprehension and fluency, fund of knowledge is intact, memory is intact Cranial nerves: Pupils are equal round and reactive to light and accommodation, extraocular movements intact, visual fuentes are full to confrontation, face is Reveals decreased contraction with left lower and mid facial portions and intact eyebrow raising bilaterally, sensations is diminished to light touch in the left face, palate elevates bilaterally, tongue protrudes midline, hearing is intact to finger rub, shoulder shrug is symmetric Motor exam: Strength testing is 5- out of 5 MRC scale strength in The left upper and lower extremity and 5 out of 5 MRC scale strength elsewhere. Deep tendon reflexes are 2+ and symmetric. Tone is normal throughout. Plantar reflexes flexor bilaterally Sensory exam: Sensations Reveals diminished light touch in the left upper and lower extremity Cerebellar exam: Yqjwhk-wp-[id number] reveals Some dysmetria in the left finger to nose. Gait is normal The neurological exam was performed by a healthcare professional which was witnessed and supervised by me via video telemedicine visit consented to by the patient or appropriate patient transportation services representative. Assessment/Plan The patient is a 37-year-old right-handed white female with a history of Nonischemic cardiomyopathy and pulmonary embolism with reported family history of stroke at a young age who was admitted to the hospital with sudden onset of Left sided numbness and paresthesias with possible weakness and left-sided headache. The patient was evaluated by [facility] stroke service for acute stroke therapy and was felt to not be a candidate. Possible etiologies include cerebral ischemia or transient ischemic attack secondary to artery to artery embolus, cerebral artery thrombosis, or cardioembolic event. I cannot exclude cerebral hypoperfusion from intracranial or extracranial cerebral artery stenosis contributing to the patient's symptoms. Due to the high morbidity and mortality associated with stroke the patient is admitted to the hospital for further workup and evaluation. -I recommend obtaining an MRI of the brain to assess for cerebral ischemia or other intracranial process which may be contributing to the patient's symptoms If it is determined that the patient's defibrillator is MRI compatible -I recommend obtaining an MR angiogram of the brain to assess for any intracranial cerebral artery stenosis If it is determined that the patient's defibrillator is MRI compatible. If it is not I recommend getting a CT angiogram of the head and neck. -I recommend obtaining an ultrasound of the carotid arteries to assess for any significant carotid artery stenosis which may contribute to artery to artery embolus or cerebral hypoperfusion -I recommend obtaining a cardiac echo to assess for any hypokinesis, akinesis, valve disease, or cardiac thrombus which may contribute to a cardioembolic event -I recommend continuing the patient on telemetry to assess for a cardiac arrhythmia which may contribute to a cardioembolic event -I recommend Aspirin 81 mg daily for secondary stroke prevention -I recommend to continue monitoring the patient's blood pressure to keep them normotensive -I recommend to continue monitoring the patient's blood sugar to keep them normoglycemic -I recommend obtaining a lipid panel and hemoglobin A1c to assess the patient's stroke risk factors -I recommend speech therapy assessed the patient for swallow evaluation and therapy needs -I recommend physical therapy and occupational therapy assessed the patient for therapy and rehabilitation needs -I recommend DVT prevention with SCD stockings or an equivalent -I counseled the patient on smoking cessation and offered treatment options -I counseled the patient on stroke signs and symptoms and advised them to alert nursing should save developed these symptoms while in the hospital and in the future go immediately to the emergency room -I counseled the patient on the possible diagnoses, prognosis, evaluation, and treatment options. I answered all questions. -I discussed the above recommendations with the hospitalist Dr Sage 1. Hemisensory deficit 2. At risk for stroke 3. Ischemic cardiomyopathy 4. History of Rae's palsy 5. Smoker Stroke-like symptom Problem List/Past Medical History Ongoing Cardiomyopathy CHF - Congestive heart failure Pulmonary embolism Smoker Historical No qualifying data Procedure/Surgical History Cardiac pacemaker (2008), Implantation of automatic cardioverter/defibrillator, total system (AICD) (2008), Abdominal hysterectomy, delivery, Cholecystectomy, Excision of tonsil, Gastric bypass, hand surgery. Medications Inpatient CeleXA 20 mg Tab, 20 mg= 1 tab(s), Oral, Daily olanzapine 5 mg Tab, 5 mg= 1 tab(s), Oral, Daily Pantoprazole [address] Tab, 40 mg= 1 tab(s), Oral, BID Xanax 1 mg Tab, 1 mg= 1 tab(s), Oral, TID, PRN Zofran 4 mg/2 mL Injection, 4 mg= 2 mL, IV Push, q6hr, PRN Home CeleXA 20 mg Tab, 20 mg= 1 tab(s), Oral, Daily Lasix 20 mg Tab, 20 mg= 1 tab(s), Oral, BID, PRN olanzapine 5 mg oral tablet, 5 mg= 1 tab(s), Oral, Daily pantoprazole 40 mg Oral EC Tab, 40 mg= 1 tab(s), Oral, BID Xanax 1 mg Tab, 1 mg= 1 tab(s), Oral, TID, PRN Allergies Bactrim (Rash) Mefoxin (Rash) amoxicillin (Rash) morphine (Itching) Social History Alcohol - Denies Alcohol Use, 10/04/2017 Current, 02/07/2018 Current, 10/04/2017 Substance Abuse - Denies Substance Abuse, 10/04/2017 Current, 02/07/2018 Tobacco - High Risk, 10/04/2017 10 or more cigarettes (1/2 pack or more)/day in last 30 days Tobacco Use:. Cigarettes, 02/07/2018 10 or more cigarettes (1/2 pack or more)/day in last 30 days Tobacco Use:., 10/04/2017 Family History Acute myocardial infarction: Mother. Asthma: Mother and Sister. Clotting disorder: Father. Dementia: Father. Depression: Mother and Sister. Diabetes mellitus type 2: Mother. Hyperlipidemia: Mother. Hypertension: Mother and Father. Renal failure syndrome: Mother. Sleep apnea: Mother. Stroke: Mother and Father. Lab Results Test Name Test Result Date/Time Comments WBC 5.1 E9/L 02/06/2018 23:57 EDT RBC 4.4 E12/L 02/06/2018 23:57 EDT Hgb 13.0 gm/dL 02/06/2018 23:57 EDT Hct 37.0 % 02/06/2018 23:57 EDT MCV 84.8 fL 02/06/2018 23:57 EDT MCH 29.8 pg 02/06/2018 23:57 EDT MCHC 35.1 gm/dL 02/06/2018 23:57 EDT RDW 13.1 % 02/06/2018 23:57 EDT Platelet 166.0 E9/L 02/06/2018 23:57 EDT MPV 8.4 fL 02/06/2018 23:57 EDT Neutro Auto 70.4 % 02/06/2018 23:57 EDT Lymph Auto 18.0 % 02/06/2018 23:57 EDT Kenton Auto 9.0 % 02/06/2018 23:57 EDT Eos Auto 1.8 % 02/06/2018 23:57 EDT Basophil Auto 0.8 % 02/06/2018 23:57 EDT Neutro Absolute 3.6 E9/L 02/06/2018 23:57 EDT Lymph Absolute 0.9 E9/L (Low) 02/06/2018 23:57 EDT Kenton Absolute 0.5 E9/L 02/06/2018 23:57 EDT Eos Absolute 0.1 E9/L 02/06/2018 23:57 EDT Basophil Absolute 0.0 E9/L 02/06/2018 23:57 EDT PT 10.9 second(s) 02/06/2018 23:57 EDT INR 1.0 02/06/2018 23:57 EDT INR results are specifically intended to assess patients stabilized on long-term Anticoagulation therapy suggested INR?s ?Less Intensive Anticoagulation? 2.0 ? 3.0 Conventional Range 3.0 ? 4.5 PTT 35.4 second(s) 02/06/2018 23:57 EDT Heparin therapeutic range (represented by Anti-Factor Xa activity of 0.2 - 0.4 U/mL) corresponds to PTT of 53.9 - 87.4 sec. Glucose Lvl 92 mg/dL 02/06/2018 23:57 EDT If this glucose result represents a fasting glucose, interpretation should refer to the following reference range: 55-99 mg/dL BUN 9 mg/dL 02/06/2018 23:57 EDT Creatinine 0.7 mg/dL 02/06/2018 23:57 EDT eGFR >60 mL/min/1.73 m2 02/06/2018 23:57 EDT Chronic kidney disease could be indicated at eGFR's of less than 60 mL/min/1.73m2. Kidney failure is indicated at less than 15 mL/min/1.73m2. eGFR AA >60 mL/min/1.73 m2 02/06/2018 23:57 EDT eGFR is race adjusted. AA=. BUN/Creat Ratio 13 02/06/2018 23:57 EDT Sodium Lvl 137 mmol/L 02/06/2018 23:57 EDT Potassium Lvl 4.0 mmol/L 02/06/2018 23:57 EDT Chloride 105 mmol/L 02/06/2018 23:57 EDT CO2 27 mmol/L 02/06/2018 23:57 EDT AGAP 9 mEq/L 02/06/2018 23:57 EDT Calcium Lvl 8.5 mg/dL (Low) 02/06/2018 23:57 EDT Magnesium 1.9 mg/dL 02/06/2018 23:57 EDT TSH 2.90 mcIU/mL 02/06/2018 23:57 EDT Troponin <0.03 ng/mL 02/06/2018 23:57 EDT New Troponin Assay 11/02/13 RENALDO CA Cutoff value > or = 0.03 ng/mL in conjunction with clinical conditions of myocardial infarction. (www.escardio.org/guidelines) Diagnostic Results (02/06/2018 23:[address] Head or Brain w/o Contrast) * Final Report * Reason For Exam Stroke POWERSCRIBE REPORT IMPRESSION: NEGATIVE CT SCAN OF THE BRAIN. CLINICAL HISTORY: Stroke. Left-sided weakness. COMMENT: Unenhanced images were obtained. The ventricles and basal cisterns appear within normal limits. The cortical sulci appear normal. There is no mass effect nor midline shift. No abnormal attenuation within the brain is noted. There is no evidence of recent intracranial hemorrhage nor extra-axial hematoma. No mass lesion is evident. No skull fracture is noted. All CT scans at this facility use dose modulation, iterative reconstruction, and/or weight based dosing when appropriate to reduce radiation dose to as low as reasonably achievable. Signature Line FINAL REPORT Dictated: 02/07/2018 8:[address] M.D. Signed (Electronic Signature): 02/07/2018 8:26 am Signed by: Yaw Lane M.D. Transcribed by: SOLOMON Technologist: HERMANN QIU REPORT [2][1] Admission H & P; Eliel Carcamo MD 02/07/2018 03:53 EDT[2] CT Head or Brain w/o Contrast; Yaw Lane M.D. 02/06/2018 23:56 EDT Normal [facility] Comment on above: Result Comment: Elec tronically Signed By: Claudia Lu RN\.br\Date and Time Signed: 02/07/18 09:11 EDT\.br\Electronically Co-Signed By: Claudia Lu RN\.br\Date and Time Co-Signed: 02/07/18 09:27 EDT\.br\Electronically Co-Signed By: Amador Hallman MD\.br\Date and Time Co-Signed: 02/07/18 10:19 EDT ED Clinical Summaryon 2017 ED Clinical Summary [place] [id number] ED Clinical SummaryPerson Information Name: CARITO RIOS/[facility]_Faisal Age: 37 Years : 1980 12:00 AM Sex: Female Language:Omani PCP: ROCK DUNBAR MD Marital Status: Visit Id: Visit Reason:Headache; HISTORY BELLS PALSY AND STROKE LIKE SYMPTOMS Speciality: Acuity: 3 Enc Type: Observation Med Service: Medical Arrival:02/06/2018 9:55 PM Discharge: LOS: 000 05:54 Checkin:02/06/2018 9:55 PM Checkout: 02/07/2018 3:49 AM Dispo Type: Admitted as IP to this [facility] EVENTS:Event Name Event Status Request Date/Time Start Date/Time Complete Date/Time Arrive Complete 02/06/2018 9:55 PM 02/06/2018 9:55 PM 02/06/2018 9:55 PM Document Home Meds Complete 02/06/2018 9:55 PM 02/07/2018 12:10 AM 02/07/2018 12:10 AM Triage Complete 02/06/2018 9:55 PM 02/06/2018 10:03 PM 02/06/2018 10:03 PM Isolation Screening Request 02/06/2018 10:04 PM Bed Assign Complete 02/06/2018 11:23 PM 02/06/2018 11:23 PM 02/06/2018 11:[address] Exam Complete 02/06/2018 11:23 PM 02/06/2018 11:34 PM 02/06/2018 11:34 PM RN Exam Complete 02/06/2018 11:23 PM 02/07/2018 12:10 AM 02/07/2018 12:10 AM Registration Complete 02/06/2018 11:34 PM 02/07/2018 12:20 AM 02/07/2018 12:20 AM Pending Labs Complete 02/06/2018 11:47 PM 02/06/2018 11:47 PM 02/06/2018 11:[address] Complete 02/06/2018 11:47 PM 02/06/2018 11:48 PM 02/06/2018 11:56 PM EKG Complete 02/06/2018 11:47 PM 02/07/2018 12:18 AM Pending Labs Complete 02/06/2018 11:47 PM 02/07/2018 2:41 AM Lab Complete 02/06/2018 11:47 PM 02/07/2018 12:16 AM Patient Care Request 02/06/2018 11:47 PM X-Ray Complete 02/06/2018 11:47 PM 02/06/2018 11:48 PM 02/07/2018 12:38 AM RT Cancel 02/06/2018 11:47 PM 02/07/2018 3:47 AM Patient Care Request 02/06/2018 11:50 PM Pending Labs Complete 02/07/2018 12:01 AM 02/07/2018 12:01 AM 02/07/2018 12:16 AM Lab Complete 02/07/2018 12:01 AM 02/07/2018 12:01 AM 02/07/2018 12:16 AM Pending Labs Complete 02/07/2018 12:05 AM 02/07/2018 12:05 AM 02/07/2018 12:05 AM Lab Complete 02/07/2018 12:05 AM 02/07/2018 12:05 AM 02/07/2018 12:05 AM Reg Complete Request 02/07/2018 12:20 AM Reg Bed Request Complete 02/07/2018 12:20 AM 02/07/2018 12:20 AM 02/07/2018 12:20 AM Wet Read Request 02/07/2018 12:38 AM Meds Admin Complete 02/07/2018 2:19 AM 02/07/2018 2:33 AM Meds Admin Complete 02/07/2018 2:24 AM 02/07/2018 2:33 AM Patient Care Request 02/07/2018 2:44 AM Pending Labs Cancel 02/07/2018 2:44 AM 02/07/2018 2:49 AM Lab Cancel 02/07/2018 2:44 AM 02/07/2018 2:49 AM Meds Admin Request 02/07/2018 2:44 AM RT Request 02/07/2018 2:44 AM Bed Request Request 02/07/2018 2:44 AM Reg Bed Request Complete 02/07/2018 2:44 AM 02/07/2018 3:11 AM 02/07/2018 3:11 AM Admit Request 02/07/2018 2:44 AM Pending Labs Complete 02/07/2018 2:50 AM 02/07/2018 2:50 AM 02/07/2018 3:20 AM Lab Complete 02/07/2018 2:50 AM 02/07/2018 2:50 AM 02/07/2018 3:00 AM Patient Care Request 02/07/2018 3:11 AM Patient Care Request 02/07/2018 3:11 AM Patient Care Request 02/07/2018 3:13 AM Patient Care Request 02/07/2018 3:13 AM Pending Labs Inlab 02/07/2018 3:21 AM 02/07/2018 3:21 AM Blood Collect Start 02/07/2018 3:21 AM 02/07/2018 3:21 AM Meds Admin Request 02/07/2018 3:38 AM ADDRESS:[address] [place] [address] [address] [facility] [phone] PHYS DOC NOTES: MEDICAL INFORMATION: Prescriptions Given:PATIENT EDUCATION INFORMATION: Instructions: Follow up:DIAGNOSIS:1:Hemisensory deficit; 2:At risk for stroke; 3:Ischemic cardiomyopathy; 4:History of Rae's palsy; Stroke-like symptom Normal [facility] ED Note-Physicianon 02-08-20 ED Note-Physician Basic Information Ti me Seen: Mesfin Valencia MD 02/06/2018 23:34Chief Complaint complains of sharp pains to left side of head starting 30mins ago. states she was doubled over in pain. nauseated. denies vomiting. feels dizzy. states pain is intermittentHistory of Present Illness 37-year-old female presents for complaint of left parietal headache which started about 30 minutes before arrival. Nursing staff was concerned about facial asymmetry and the possibility of strokelike issues. Patient has a history of previous Rae's palsy. 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 No particular etiology has ever been determined by [facility]. Patient does have a history of cardiomyopathy and does have a pacemaker defibrillator. There is no complaint of any change in eyesight hearing or speech. She denies any focal weakness numbness or tingling in extremities. There is no chest pain there is no shortness of breath. She denies any associated nausea or photophobia.Review of Systems Additional ROS info: Except as noted in the above Review of Systems and in the History of Present Illness all other systems have been reviewed and are negative or noncontributory.Unless otherwise stated in this report the patient's positive and negative responses for review of systems for constitutional, eyes, ENT, cardiovascular, respiratory, gastrointestinal, neurological, , musculoskeletal, and integument systems and related systems to the presenting problem are either stated in the history of present illness or were not pertinent or were negative for the symptoms and/or complaints related to the presenting medical problemOSPhysical Exam Vitals & Measurements T: 36.2 ?C (Tympanic) HR: 62(Monitored) RR: 20 BP: 125/66 SpO2: 99% HT: 175 cm WT: 94.3 kg BMI: 30.79 This is a well-developed 37-year-old female she is alert and oriented and in moderate discomfort. Her skin is warm and dry her color is pink on room air. Ocular muscles are intact visual fuentes appear to be intact at rest it does appear that there is some facial asymmetry the left side appears to be rather constricted compared to the right side. However when you actively test the muscles such as raising the eyebrow closing the eyes in showing the teeth and actual motion appears to be nearly symmetric. Carotid pulses are symmetric the heart is regular without murmur. Lungs are clear and the abdomen is soft. The patient's gross motor strength both upper and lower extremities appears to be symmetric and within normal limits. Finger nose maneuver and heel-to-toe maneuver are executed without ataxia. Light touch however does reveal feels some asymmetry with decreased sensation on the left side of the body is compared to the right. On his stroke scale this patient measures out as a 2 and that is a generous to allowing for the facial asymmetry is at as opposed to out right facial weakness.Medical Decision Making EKG shows a paced rhythm with a ventricular rate of 61. A page [facility] and when we did not receive a phone call back within the first hour we then contacted the [facility]. I discussed the case in detail with the stroke interventional list. Reviewing her past medical history and her current physical findings she is confident that this does not represent a cerebrovascular accident. He recommends that she be admitted for observation and for contact with the local neurology.Assessment/Plan 1. History of Rae's palsy 2. Stroke-like symptom Orders: Automated Diff Basic Metabolic Panel CBC w/ Auto Diff Rison Stroke Scale Communication Order Physician to Nursing Continuous Pulse Oximetry CT Head or Brain w/o Contrast CVA/TIA Inclusion/Exclusion Criteria ECG 12 Lead Adult ED Cardiac Monitoring eGFR Magnesium Level NIH Stroke Scale Oxygen Therapy PT & PTT Saline Lock Insert Stroke Quality Measures Troponin 0 Hr. TSH With T4fr Reflex Vital Signs XR Chest Single ViewMedications Administered Given [id number] [F], 25 mg, IV morphine 2 mg/mL Inj, 4 mg, IV Push Zofran 4 mg/2 mL Injection, 4 mg, IV PushDisposition Plan Patient Discharge Condition Guarded Discharge Disposition Admit to observation telemetry Discharge Prescription List Prescriptions No active prescription medications Follow-up No qualifying data availableAttestation Critical care time 45 minutesProblem List/Past Medical History Ongoing Cardiomyopathy CHF - Congestive heart failure Pulmonary embolism Smoker Historical No qualifying dataProcedure/Surgical History Cardiac pacemaker (2008), Implantation of automatic cardioverter/defibrillator, total system (AICD) (2008), Abdominal hysterectomy, delivery, Cholecystectomy, Excision of tonsil, Gastric bypass, hand surgery.Medications Inpatient Zofran 4 mg/2 mL Injection, 4 mg= 2 mL, IV Push, q6hr, PRN Home CeleXA 20 mg Tab, 20 mg= 1 tab(s), Oral, Daily Lasix 20 mg Tab, 20 mg= 1 tab(s), Oral, BID, PRN olanzapine 5 mg oral tablet, 5 mg= 1 tab(s), Oral, Daily pantoprazole 40 mg Oral EC Tab, 40 mg= 1 tab(s), Oral, BID Xanax 1 mg Tab, 1 mg= 1 tab(s), Oral, TID, PRNAllergies Bactrim (Rash) Mefoxin (Rash) amoxicillin (Rash) morphine (Itching)Social History Alcohol - Denies Alcohol Use, 10/04/2017 Current, 02/07/2018 Current, 10/04/2017 Substance Abuse - Denies Substance Abuse, 10/04/2017 Current, 02/07/2018 Tobacco - High Risk, 10/04/2017 10 or more cigarettes (1/2 pack or more)/day in last 30 days Tobacco Use:. Cigarettes, 02/07/2018 10 or more cigarettes (1/2 pack or more)/day in last 30 days Tobacco Use:., 10/04/2017Family History Acute myocardial infarction: Mother. Asthma: Mother and Sister. Clotting disorder: Father. Dementia: Father. Depression: Mother and Sister. Diabetes mellitus type 2: Mother. Hyperlipidemia: Mother. Hypertension: Mother and Father. Renal failure syndrome: Mother. Sleep apnea: Mother. Stroke: Mother and Father.Lab Results WBC: 5.1 E9/L (02/06/18 23:57:00 EDT) RBC: 4.4 E12/L (02/06/18 23:57:00 EDT) Hgb: 13 gm/dL (02/06/18 23:57:00 EDT) Hct: 37 % (02/06/18 23:57:00 EDT) MCV: 84.8 fL (02/06/18 23:57:00 EDT) MCH: 29.8 pg (02/06/18 23:57:00 EDT) MCHC: 35.1 gm/dL (02/06/18 23:57:00 EDT) RDW: 13.1 % (02/06/18 23:57:00 EDT) Platelet: 166 E9/L (02/06/18 23:57:00 EDT) MPV: 8.4 fL (02/06/18 23:57:00 EDT) Neutro Auto: 70.4 % (02/06/18 23:57:00 EDT) Lymph Auto: 18 % (02/06/18 23:57:00 EDT) Kenton Auto: 9 % (02/06/18 23:57:00 EDT) Eos Auto: 1.8 % (02/06/18 23:57:00 EDT) Basophil Auto: 0.8 % (02/06/18 23:57:00 EDT) Neutro Absolute: 3.6 E9/L (02/06/18 23:57:00 EDT) Lymph Absolute: 0.9 E9/L Low (02/06/18 23:57:00 EDT) Kenton Absolute: 0.5 E9/L (02/06/18 23:57:00 EDT) Eos Absolute: 0.1 E9/L (02/06/18 23:57:00 EDT) Basophil Absolute: 0 E9/L (02/06/18 23:57:00 EDT) PT: 10.9 second(s) (02/06/18 23:57:00 EDT) INR: 1 (02/06/18 23:57:00 EDT) PTT: 35.4 second(s) (02/06/18 23:57:00 EDT) Glucose Lvl: 92 mg/dL (02/06/18 23:57:00 EDT) BUN: 9 mg/dL (02/06/18 23:57:00 EDT) Creatinine: 0.7 mg/dL (02/06/18 23:57:00 EDT) eGFR: >60 (02/06/18 23:57:00 EDT) eGFR AA: >60 (02/06/18 23:57:00 EDT) BUN/Creat Ratio: 13 (02/06/18 23:57:00 EDT) Sodium Lvl: 137 mmol/L (02/06/18 23:57:00 EDT) Potassium Lvl: 4 mmol/L (02/06/18 23:57:00 EDT) Chloride: 105 mmol/L (02/06/18 23:57:00 EDT) CO2: 27 mmol/L (02/06/18 23:57:00 EDT) AGAP: 9 mEq/L (02/06/18 23:57:00 EDT) Calcium Lvl: 8.5 mg/dL Low (02/06/18 23:57:00 EDT) Troponin: <0.03 (02/06/18 23:57:00 EDT) Glucose Cap: 93 mg/dL (02/06/18 23:47:00 EDT) POC Device SN: [id number] (02/06/18 23:47:00 EDT) POC Username: VALDEZ DOSHI (02/06/18 23:47:00 EDT)Diagnostic Results No qualifying data available. CT brain showed no acute changes. Normal [facility] Comment on above: Result Comment: Elec tronically Signed By: Mesfin Valencia MD\.br\Date and Time Signed: 02/07/18 02:59 EDT ED Patient Education Noteon 02-07-2018 ED Patient Education Note Normal [facility] ED Patient Summaryon 018 ED Patient Summary (Inserted Image. Lolis ble to display) [place] [id number] Patient Discharge Instructions Person Information Name: CARITO RIOS Age: 37 Years Date: 02/06/2018 9:55 PMDischarge Diagnosis: 1:Hemisensory deficit; 2:At risk for stroke; 3:Ischemic cardiomyopathy; 4:History of Rae's palsy; Stroke-like symptom Primary Care Physician: ROCK DUNBAR MD Provider InformationPrimary Provider: Yudelka Valencia MD Adjunct Physics Instructor:None The exam and treatment you received in the Emergency Department were for an urgent problem and are not intended as complete care. It is important that you follow up with a doctor, nurse practitioner, or physician?s maintenance assistant for ongoing care. If your symptoms become worse or you do not improve as expected and you are unable to reach your usual health care provider, you should return to the Emergency Department. We are available 24 hours a day. CARITO RIOS has been given the following list of patient education materials, prescriptions and follow-up instructions: Follow-up Instructions: In the event that this physician does not participate in your insurance network, please consult with your insurance company to find a nearby participating provider. Patient Education Materials: A MESSAGE TO ALL PATIENTS REGARDING OPIOIDS PRESCRIPTION OPIOIDS: WHAT YOU NEED TO KNOW Prescription opioids can be used to help relieve oflmoinl-mn-ycnrwx pain and are often prescribed following a surgery or injury, or for certain health conditions. These medications can be an important part of the treatment but also come with serious risks. It is important to work with your healthcare provider to make sure you are getting the safest, most effective care. WHAT ARE THE RISKS AND SIDE EFFECTS OF OPIOID USE?Prescription opioids carry serious risks of addiction and overdose, especially with prolonged use. An opioid overdose, often marked by slowed breathing, can cause sudden . The use of prescription opioids can have a number of side effects as well, even when taken as directed:? Tolerance?meaning you might need to take more of the medication for the same pain relief? Physical dependence?meaning you have symptoms of withdrawal when a medication is stopped? Increased sensitivity to pain ? Constipation? Nausea, vomiting, and dry mouth? Sleepiness and dizziness? Confusion? Depression? Low levels of testosterone that can result in lower sex drive, energy, and strength? Itching and sweating RISKS ARE GREATER WITH:? History of drug misuse, substance use disorder, or overdose? Mental health conditions (such as depression or anxiety)? Sleep apnea? Older age (65 years and older)? Avoid alcohol while taking prescription opioids. Also, unless specifically advised by your health care provider, medications to avoid include:? Benzodiazepines (such as Xanax or Valium)? Muscle relaxants (such as Soma or Flexeril)? Hypnotics (such as Ambien or Lunesta)? Other prescription opioids KNOW YOUR OPTIONSTalk to your health care provider about ways to manage your pain that don?t involve prescription opioids. Some of these options may actually work better and have fewer risks and side effects. Options may include:? Pain relievers such as acetaminophen, ibuprofen, and naproxen? Some medication that are also used for depression or seizures? Physical therapy and exercise? Cognitive behavioral therapy, a psychological, goal-directed approach, in which patients learn how to modify physical, behavioral, and emotional triggers of pain and stress. IF YOU ARE PRESCRIBED OPIOIDS FOR PAIN:? Never take opioids in greater amounts or more often than prescribed.? Follow up with your primary health care provider.o Work together to create a plan on how to manage your pain.o Talk about ways to help manage your pain that don?t involve prescription opioids.o Talk about any and all concerns and side effects.? Help prevent misuse and abuseo Never sell or share prescription opioids.o Never use another person?s prescription opioids.? Store prescription opioids in a secure place and out of reach of others (this may include visitors, children, friends, and family).? Safely dispose of unused prescription opioids: Find your community drug take-back program or your pharmacy mail-back program, or flush them down the toilet, following guidance from the Food and Drug Administration (www.fda.gov/Drugs/ResourcesFor You).? Visit www.cdc.gov/drugoverdose to learn about the risks of opioids abuse and overdose.? If you believe you may be struggling with addiction, tell your health weekend caregiver and ask for guidance or call [facility] National Helpline at 7-541-492-CPQW. a Source: [place] Department of Health and Human Services/Center for Disease Control & Prevention [facility] Medications Given:Medication Dose Route ondansetron 4.00 mg IV Push Right Wrist morphine 4.00 mg IV Push Right Wrist diphenhydrAMINE 25.00 mg IV Right Wrist Medication Information:Medications to Continue with No ChangesOther Medicationsalprazolam (Xanax 1 mg Tab) 1 Tabs By Mouth 3 times a day as needed for anxiety.citalopram (CeleXA 20 mg Tab) 1 Tabs By Mouth every day.furosemide (Lasix 20 mg Tab) 1 Tabs By Mouth 2 times a day as needed Edema.olanzapine (olanzapine 5 mg oral tablet) 1 Tabs By Mouth every day.pantoprazole (pantoprazole 40 mg Oral EC Tab) 1 Tabs By Mouth 2 times a day.Comment: Pharmacy Information: [facility] Thank you for choosing [facility] Patient Education Materials: TOVA DinhCARITO , have received the following patient education materials/instructions and have verbalized understanding: Patient Education Materials: Follow-up Instructions: Prescriptions: Patient Signature Date Clinician/Nurse Signature Date 02/07/18 03:49:22 Normal [facility] History and Physicalon 02-07 History and Physical Chief Complaint complains of sharp pains to left side of head starting 30mins ago. states she was doubled over in pain. nauseated. denies vomiting. feels dizzy. states pain is intermittentHistory of Present Illness Ms. 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 In the ED, she was found to have facial asymmetry and a stroke alert was called. Computed axial tomography scan was unremarkable and a request was made to transfer to [facility] for further stroke workup but patient was declined as he was leaving the concern for acute CVA by DC. At the time of my evaluation, head pain is easing up after a dose of morphine but patient continues to have facial asymmetry, left hemisensory symptoms. She tells me that the symptoms that she is having right now are different from the symptoms of her Rae's palsy. 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 This time around, she has numbness involving her entire left side including her face. Blood work done in the ED was remarkable my patient is referred to hospitalist service for admission for further management. She denies head trauma. She denies prior history of stroke. She reports family history of stroke in her father at the age of 40. She reports compliance with her prescribed medications. She is not currently on MADI inhibitor or beta blockade.Review of Systems Except as noted in the History of Present Illness all other systems have been reviewed and are negative or noncontributory.Physical Exam Vitals & Measurements T: 36.2 ?C (Tympanic) HR: 62(Monitored) RR: 20 BP: 125/66 SpO2: 99% WT: 94.3 kg General: alert, non ill-looking. HEENT: normocephalic, atraumatic, no palor, no jaundice. Midline trachea, moist oral mucosa, normal dentition Cardiovascular: regular rate and rhythm, S1, S2, No murmurs Respiratory: Lungs CTA bilaterally, respirations non labored Chest wall: no deformity. ICD in left upper chest Gastrointestinal: abdomen is soft, non distended, no tenderness, no guarding. Bowel sounds + Back: No spinal or CVA tenderness Extremities: no edema, no calf tenderness, Normal ROM. Peripheral pulses palpable Neurological: oriented x 3, left eye ptosis, facial asymmetry with loss of left nasolabial fold, decreased sensation left face, left UE and left LE. Speech is clear. Gait not tested. Psychiatric: cooperative, normal judgement, No depression or anxiety Skin: warm, dry. Several tattoos on extremities and trunk. No piercingLab Results WBC: 5.1 E9/L (02/06/18 23:57:00 EDT) RBC: 4.4 E12/L (02/06/18 23:57:00 EDT) Hgb: 13 gm/dL (02/06/18 23:57:00 EDT) Hct: 37 % (02/06/18 23:57:00 EDT) MCV: 84.8 fL (02/06/18 23:57:00 EDT) MCH: 29.8 pg (02/06/18 23:57:00 EDT) MCHC: 35.1 gm/dL (02/06/18 23:57:00 EDT) RDW: 13.1 % (02/06/18 23:57:00 EDT) Platelet: 166 E9/L (02/06/18 23:57:00 EDT) MPV: 8.4 fL (02/06/18 23:57:00 EDT) Neutro Auto: 70.4 % (02/06/18 23:57:00 EDT) Lymph Auto: 18 % (02/06/18 23:57:00 EDT) Kenton Auto: 9 % (02/06/18 23:57:00 EDT) Eos Auto: 1.8 % (02/06/18 23:57:00 EDT) Basophil Auto: 0.8 % (02/06/18 23:57:00 EDT) Neutro Absolute: 3.6 E9/L (02/06/18 23:57:00 EDT) Lymph Absolute: 0.9 E9/L Low (02/06/18 23:57:00 EDT) Kenton Absolute: 0.5 E9/L (02/06/18 23:57:00 EDT) Eos Absolute: 0.1 E9/L (02/06/18 23:57:00 EDT) Basophil Absolute: 0 E9/L (02/06/18 23:57:00 EDT) PT: 10.9 second(s) (02/06/18 23:57:00 EDT) INR: 1 (02/06/18 23:57:00 EDT) PTT: 35.4 second(s) (02/06/18 23:57:00 EDT) Glucose Lvl: 92 mg/dL (02/06/18 23:57:00 EDT) BUN: 9 mg/dL (02/06/18 23:57:00 EDT) Creatinine: 0.7 mg/dL (02/06/18 23:57:00 EDT) eGFR: >60 (02/06/18 23:57:00 EDT) eGFR AA: >60 (02/06/18 23:57:00 EDT) BUN/Creat Ratio: 13 (02/06/18 23:57:00 EDT) Sodium Lvl: 137 mmol/L (02/06/18 23:57:00 EDT) Potassium Lvl: 4 mmol/L (02/06/18 23:57:00 EDT) Chloride: 105 mmol/L (02/06/18 23:57:00 EDT) CO2: 27 mmol/L (02/06/18 23:57:00 EDT) AGAP: 9 mEq/L (02/06/18 23:57:00 EDT) Calcium Lvl: 8.5 mg/dL Low (02/06/18 23:57:00 EDT) Magnesium: 1.9 mg/dL (02/06/18 23:57:00 EDT) TSH: 2.9 mcIU/mL (02/06/18 23:57:00 EDT) Troponin: <0.03 (02/06/18 23:57:00 EDT) Glucose Cap: 93 mg/dL (02/06/18 23:47:00 EDT) POC Device SN: [id number] (02/06/18 23:47:00 EDT) POC Username: VALDEZ DOSHI (02/06/18 23:47:00 EDT)Diagnostic Results paced rhythm on EKGImages Nil acute findings on CXRAssessment/Plan 1. Hemisensory deficit with concern for complex migraine vs acute CVA Admit for observation, anticipate < 2 midnight hospital say for evaluation and w/u Would love to obtain an MRI with and without contrast to rule in or rule out CVA but intracardiac device precludes this. She is gonna bring her PPM card later today 2. At risk for stroke due to positive family history and # 3 below daily aspirin 3. Ischemic cardiomyopathy stable with EF of 45 %. NOt on MADI-I or B-becka currently 4. 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 5. Smoker Patient is still nicotine dependence. Counseled extensively. Tells me that she quit before but has not picked it up again. She will work on it. Nicotine patch. Orders: alprazolam, 1 mg = 1 tab(s), Tab, Oral, TID PRN Anxiety, Routine, Start date 02/07/18 3:37:00 EDT citalopram, 20 mg = 1 tab(s), Tab, Oral, Daily, Routine, Start date 02/07/18 9:00:00 EDT olanzapine, 5 mg = 1 tab(s), Tab, Oral, Daily, Routine, Start date 02/07/18 9:00:00 EDT ondansetron, 4 mg = 2 mL, Injection, IV Push, q6hr PRN Nausea, STAT, Start date 02/07/18 2:43:00 EDT pantoprazole, 40 mg = 1 tab(s), Tab-EC, Oral, BID, Routine, Start date 02/07/18 9:00:00 EDT Intake and Output Notify Provider Vital Signs Oxygen Protocol Place in Status Pulse Oximetry Regular Diet Resuscitation Status - Full Saline Lock Convert From IV Up ad Adrianna Vital Signs WeightProblem List/Past Medical History Ongoing Cardiomyopathy CHF - Congestive heart failure Pulmonary embolism Smoker Historical No qualifying dataProcedure/Surgical History Cardiac pacemaker (2008), Implantation of automatic cardioverter/defibrillator, total system (AICD) (2008), Abdominal hysterectomy, delivery, Cholecystectomy, Excision of tonsil, Gastric bypass, hand surgery.Medications Inpatient CeleXA 20 mg Tab, 20 mg= 1 tab(s), Oral, Daily olanzapine 5 mg Tab, 5 mg= 1 tab(s), Oral, Daily Pantoprazole [address] Tab, 40 mg= 1 tab(s), Oral, BID Xanax 1 mg Tab, 1 mg= 1 tab(s), Oral, TID, PRN Zofran 4 mg/2 mL Injection, 4 mg= 2 mL, IV Push, q6hr, PRN Home CeleXA 20 mg Tab, 20 mg= 1 tab(s), Oral, Daily Lasix 20 mg Tab, 20 mg= 1 tab(s), Oral, BID, PRN olanzapine 5 mg oral tablet, 5 mg= 1 tab(s), Oral, Daily pantoprazole 40 mg Oral EC Tab, 40 mg= 1 tab(s), Oral, BID Xanax 1 mg Tab, 1 mg= 1 tab(s), Oral, TID, PRNAllergies Bactrim (Rash) Mefoxin (Rash) amoxicillin (Rash) morphine (Itching)Social History Alcohol - Denies Alcohol Use, 10/04/2017 Current, 02/07/2018 Current, 10/04/2017 Substance Abuse - Denies Substance Abuse, 10/04/2017 Current, 02/07/2018 Tobacco - High Risk, 10/04/2017 10 or more cigarettes (1/2 pack or more)/day in last 30 days Tobacco Use:. Cigarettes, 02/07/2018 10 or more cigarettes (1/2 pack or more)/day in last 30 days Tobacco Use:., 10/04/2017Family History Acute myocardial infarction: Mother. Asthma: Mother and Sister. Clotting disorder: Father. Dementia: Father. Depression: Mother and Sister. Diabetes mellitus type 2: Mother. Hyperlipidemia: Mother. Hypertension: Mother and Father. Renal failure syndrome: Mother. Sleep apnea: Mother. Stroke: Mother and Father. Normal [facility] Comment on above: Result Comment: Elec tronically Signed By: Carlos Alberto LEIJA, Eliel Holland\.br\Date and Time Signed: 02/07/18 03:54 EDT Interdisciplinary Note - Gustavo e Manageron 02-07-2018 Interdisciplinary Note - Laminating Machine Operator Helper Rounding with Perez Garvey Ph. Yane DE LA VEGA, Lisa RN, eric board updated, reviewed observation status with patient, and went over any other questions reguarding her Insurance, verified with patient that Dr. Dunbar is her PCP and she sees Dr. Savage for her neuro due to history of [place] Palsy. Patient stated that she just seen both of them about a month ago. Dr. Sage went over treatment plan with patient to have Neuro consult today and if improvement with headaches, a possible plan of discharge today as well, Patient's boyfriend will transport home. No other needs or concerns voiced. Normal [facility] Magnesiumon 02-07-2018 Magnesium mass conc 1.9 mg/dL Normal 1.3-2.4 [facility] Comment on above: Performed By: #### 2 [id number], [id number], [id number], [id number], [id number], [id number], [id number], [id number], [id number] ####[facility] [address] [place] [address] PT & PTTon 02-07-2018 aPTT Coag time (Bld) 35.4 second(s) Normal 25.1-36.5 [facility] Comment on above: Result Comment: Hepa rin therapeutic range (represented by Anti-Factor Xa activity of 0.2 - 0.4 U/mL) corresponds to PTT of 53.9 - 87.4 sec. Performed By: #### 2 [id number], [id number], [id number], [id number], [id number], [id number] ####[facility] [address] [place] [address] INR Coag RelTime (PPP) 1.0 {INR} Invalid Interpretation Code [facility] Comment on above: Result Comment: INR results are specifically intended to assess patients stabilized on long-term Anticoagulation therapy suggested INR?s ?Less Intensive Anticoagulation? 2.0 ? 3.0Conventional Range 3.0 ? 4.5 Performed By: #### 2 [id number], [id number], [id number], [id number], [id number], [id number], [id number], [id number], [id number] ####[facility] [address] [place] [address] Prothrombin time (PT) Coag time (PPP) 10.9 second(s) Normal 10.2-12.9 [facility] Comment on above: Performed By: #### 2 [id number], [id number], [id number], [id number], [id number], [id number], [id number], [id number], [id number], [id number] ####[facility] [address] [place] [address] Progress Note - Laminating Machine Operator Helper on 02-07-2018 Progress Note - Laminating Machine Operator Helper Rounding with Perez Garvey Ph. Lisa Noble RN, white board updated, reviewed observation status with patient, and went over any other questions reguarding her Insurance, verified with patient that Dr. Dunbar is her PCP and she sees Dr. Savage for her neuro due to history of [place] Palsy. Patient stated that she just seen both of them about a month ago. Dr. Sage went over treatment plan with patient to have Neuro consult today and if improvement with headaches, a possible plan of discharge today as well, Patient's boyfriend will transport home. No other needs or concerns voiced. Normal [facility] Progress Note-Nurseon 2017 Protein mass conc Patient is complaing of itching proximal to the IV site. Pt reports itching bgan to occur after administration of morphine. Physician made aware and gave verbal order to administer 25 mg of benadryl Normal [facility] Protein mass conc 2330 This nurse got pt out of waiting room and is now obtaining care for patient at this time. Patient walked back to room with no problems. When patient brought back to room she explains to this nurse she has history of bells palsy. This nurse asked patient to raise eyebrows and pt is able to raise both eye brows. Pt c/o SUMMERS to the left side of head but is intermittent since initial onset at approx 2230. Pt reports headpain at 3/10 at this time. This nurse notices a slight decreased in strength on left side. Pt reports slight numbess to entire left side of body. Physician explained situation and asked if he would like a rapid response stroke called. Phys[facility]. 2335 Physician at bedside at this time assessing patient. NIH completed at this time by physician. 2344 This nurse and physician spoke at this time regarding situation with patient. Physician stated to call Rapid response at this time. Rapid response stroke called. 2347 blood sugar obtained at this time, reading [id number] This nurse took pt to CT at this time. Normal [facility] TSH With T4fr Reflexon 02-07 Thyrotropin Qn 2.90 mcIU/mL Normal 0.34-5.60 [facility] Comment on above: Performed By: #### 2 [id number], [id number], [id number], [id number], [id number], 1480974, [id number], [id number], [id number] ####[facility] [address] [place] [address] Troponin 0 Hr.on 02-07-2018 Troponin I.cardiac mass conc ng/mL Normal <=0.03 [facility] [facility] Comment on above: Result Comment: New Troponin Assay 11/02/13ROC CA Cutoff value > or = 0.03 ng/mL in conjunction with clinical conditions of myocardial infarction.([email or web address]) Performed By: #### 2 228101, 6159879, 86264165, 0129489, 6364386, 90560734, 5471887, 1501929, 91193869, 19776193 ####[facility] [address] [place] [address] XR Chest Single Viewon 02-07 INR Coag RelTime (Bld) Exam Date/Time:02/07/2018 00:38 EDTReason for Exam:Chest painReportIMPRESSION: NO EVIDENCE OF ACTIVE CARDIOPULMONARY DISEASE, OR SIGNIFICANT CHANGEFROM 01/06/2018 IDENTIFIED.CLINICAL HISTORY: Strokelike symptoms. COMPARISON: 01/06/2018.TECHNIQUE: A portable upright AP radiograph of the chest was obtained.FINDINGS: There is a shallow inspiratory volume without significant infiltrate, pleuraleffusion, vascular congestion, cardiomegaly, or pneumothorax. A predominantly left subclavian approach AICD appears unchanged. FINAL REPORT Dictated: 02/07/2018 11:32 am Ric Oneal MD Signed (Electronic Signature): 02/07/2018 11:32 am Signed by: Ric Oneal MD Transcribed by: SOLOMON Technologist: HERMANN Live [facility] eGFRon 02-07-2018 GFR/1.73 sq M predicted among blacks MDRD vol rate/area (S/P/Bld) mL/min/{1.73_m2} Normal >=59 [facility] Comment on above: Order Comment: Order added by Discern Expert. Result Comment: eGFR is race adjusted. AA=. Performed By: #### 2 690311, 7533348, 19988576, 8028574, 3980243, 71906017, 3508002, 0539391, 78357736, 24482404 ####[facility] [address] [place] [address] GFR/1.73 sq M predicted among non-blacks MDRD vol rate/area (S/P/Bld) mL/min/{1.73_m2} Normal >=59 [facility] Comment on above: Order Comment: Order added by Discern Expert. Result Comment: Drilling [employer] Specialist nya kidney disease could be indicated at eGFR's of less than 60 mL/min/1.73m2. Kidney failure is indicated at less than 15 mL/min/1.73m2. Performed By: #### 2 393313, 9738859, 30462525, 1332829, 8160380, 41996943, 4822516, 7041459, 17154486, 78125316 ####[facility] [address] [place] [address] Coding Summary.on 01-07-2018 Coding Summary. CODING DATE: 018 FINAL [facility] STATUS: Home (Routine DC) PAYOR: Medicaid EAPG DESCRIPTION 0413 CARDIOGRAM 0408 LEVEL I HEMATOLOGY TESTS 0496 MINOR PHARMACOTHERAPY 0403 ORGAN OR DISEASE ORIENTED PANELS 0400 LEVEL I CHEMISTRY TESTS 0401 LEVEL II CHEMISTRY TESTS 0406 LEVEL I CLOTTING TESTS 0471 PLAIN FILM 0111 PHARMACOTHERAPY EXCEPT BY EXTENDED INFUSION 0490 INCIDENTAL TO MEDICAL, SIGNIFICANT PROCEDURE OR THERAPY VISIT 0561 VERTIGINOUS DIAGNOSES EXCEPT FOR BENIGN VERTIGO ADMIT DX: REASON FOR VISIT DX: R42 Dizziness and giddiness R10.32 Left lower quadrant pain M54.5 Low back pain FINAL DX: PRINCIPAL: R42 Dizziness and giddiness SECONDARY: F17.210 Nicotine dependence, cigarettes, uncomplicated Z86.711 Personal history of pulmonary embolism Z95.810 Presence of automatic (implantable) cardiac defibrillator Z98.84 Bariatric surgery status PYMT PROC EAPG STAT DESCRIPTION DOCTOR NAME DATE NOTE: The code number assigned matches the documented diagnosis and / or procedure in the patient's chart. However, the narrative phrase printed from the coding software may appear abbreviated, or result in slightly different terminology. Revised Coded By: Meryl Steen Revised Date Saved: 01/07/2018 09:50 am Normal [facility] XR Chest 2 Viewson 8 INR Coag RelTime (Bld) Exam Date/Time:01/06/2018 20:58 EDTReason for Exam:Chest painReportIMPRESSION: NO EVIDENCE OF ACTIVE CHEST DISEASE.CLINICAL HISTORY: Chest pain. COMMENT: There is a cardiac electrical device on the left, with intracardiac electrodes andepicardial electrodes. The heart is normal in size. The mediastinum is unremarkable.The lungs appear clear. No infiltration nor pleural effusion is evident. FINAL REPORT Dictated: 01/07/2018 7:[address] M.D. Signed (Electronic Signature): 01/07/2018 7:56 am Signed by: Yaw Lane M.D. Transcribed by: SOLOMON Technologist: ALIN Normal [facility] Auto Diffon 01-06-2018 Basophils Auto #/vol (Bld) 0.9 % Normal 0.0-2.0 [facility] Comment on above: Order Comment: Order Added by Discern Expert. Performed By: #### 2 643973, 8376447, 25115091, 3423896, 9510477, 14188115, 2284517, 1916340, 84748294, 68349345 ####[facility] [address] [place] [address] Basophils/Leukocyt es Auto Pure number fraction (Bld) 0.0 E9/L Normal 0.0-0.2 [facility] Comment on above: Order Comment: Order Added by Discern Expert. Performed By: #### 2 543211, 3546340, 56972868, 5737337, 2839572, 40202406, 3424938, 2304084, 77796332, 73033276 ####[facility] [address] [place] [address] Eosinophils/100 WBC Auto (Bld) 2.3 % Normal 0.0-8.0 [facility] Comment on above: Order Comment: Order Added by Discern Expert. Performed By: #### 2 121739, 0999057, 20631973, 2842722, 2366900, 33647404, 4416491, 8486694, 03695938, 93889292 ####[facility] [address] [place] [address] Eosinophils/Leukoc ytes Auto Pure number fraction (Bld) 0.1 E9/L Normal 0.0-0.5 [facility] Comment on above: Order Comment: Order Added by Discern Expert. Performed By: #### 2 639260, 4064995, 99406773, 9062997, 9487809, 65984415, 0941461, 3499537, 54594151, 10355856 ####[facility] [address] [place] [address] Lymphocytes/100 WBC Auto (Bld) 17.2 % Normal 14.0-50.0 [facility] Comment on above: Order Comment: Order Added by Discern Expert. Performed By: #### 2 749036, 1034964, 61787191, 6372911, 8925719, 95888844, 7588303, 1532711, 92001462, 25594095 ####[facility] [address] [place] [address] Lymphocytes/Leukoc ytes Auto Pure number fraction (Bld) 0.9 E9/L Low 1.0-4.0 [facility] Comment on above: Order Comment: Order Added by Lizet Expert. Performed By: #### 2 599750, 6771073, 26074447, 5212821, 4924693, 93533502, 8980194, 8699680, 38771832, 76081775 ####[facility] [address] [place] [address] Monocytes/100 WBC Auto (Bld) 6.9 % Normal 4.0-14.0 [facility] Comment on above: Order Comment: Order Added by Discern Expert. Performed By: #### 2 674477, 7169335, 33077902, 7428573, 5669368, 00969934, 7685799, 9188518, 61047220, 95290603 ####[facility] [address] [place] [address] Monocytes/Leukocyt es Auto Pure number fraction (Bld) 0.4 E9/L Normal 0.2-1.0 [facility] Comment on above: Order Comment: Order Added by Lizet Expert. Performed By: #### 2 763187, 8990505, 41363993, 8893174, 1851634, 56235004, 1811753, 8062638, 05547949, 52321925 ####[facility] [address] [place] [address] Neutrophils/100 WBC Auto (Bld) 72.7 % Normal 36.0-75.0 [facility] Comment on above: Order Comment: Order Added by Discern Expert. Performed By: #### 2 792063, 9333218, 98932870, 6377635, 1315139, 63326727, 5771431, 9353246, 32175059, 37369156 ####[facility] [address] [place] [address] Neutrophils/Leukoc ytes Auto Pure number fraction (Bld) 3.7 E9/L Normal 2.0-7.5 [facility] Comment on above: Order Comment: Order Added by Discern Expert. Performed By: #### 2 088293, 9533075, 73165376, 6960907, 1970091, 71825509, 0793901, 5098510, 47362546, 77680985 ####[facility] [address] [place] [address] BMPon 01-06-2018 Creatinine mass conc 0.7 mg/dL Normal 0.5-1.3 [facility] Comment on above: Performed By: #### 2 402430, 9004027, 42787400, 7866145, 0812916, 73104511, 9129104, 8052804, 74087301, 25043131 ####[facility] [address] [place] [address] Urea nitrogen mass conc 7 mg/dL Normal 5-21 [facility] Comment on above: Performed By: #### 2 613310, 4115617, 85280918, 4490648, 5488856, 96101473, 1592465, 5525364, 95464483, 80176950 ####[facility] [address] [place] [address] Urea nitrogen/Creatinin e mass ratio 10 No Units Normal 10-20 [facility] Comment on above: Performed By: #### 2 286761, 2957401, 77224320, 7184112, 6926557, 88612773, 6759065, 6476389, 90132604, 87881823 ####[facility] [address] [place] [address] Anion gap 3 molar conc 12 mmol/L Normal 6-16 [facility] Comment on above: Performed By: #### 2 385961, 0007005, 94935024, 9907358, 3581402, 34249888, 9519464, 0190509, 42658696, 88987276 ####[facility] [address] [place] [address] Calcium mass conc 8.8 mg/dL Low 8.9-11.1 [facility] Comment on above: Performed By: #### 2 668244, 6758703, 33931976, 5188208, 5008830, 39318372, 5867882, 1920846, 31590254, 87645050 ####[facility] [address] [place] [address] Chloride molar conc 105 mmol/L Normal 101-111 [facility] Comment on above: Performed By: #### 2 250875, 8796211, 87617371, 8154205, 9837776, 66829679, 2097322, 3440843, 48148993, 26444227 ####[facility] [address] [place] [address] CO2 molar conc 24 mmol/L Normal 21-31 [facility] Comment on above: Performed By: #### 2 530884, 0958261, 24679954, 7024972, 6219363, 04705917, 3551318, 9571524, 81566354, 27950856 ####[facility] [address] [place] [address] Glucose mass conc 117 mg/dL Normal 55-199 [facility] Comment on above: Result Comment: If t his glucose result represents a fasting glucose, interpretation should refer to the following reference range: 55-99 mg/dL Performed By: #### 2 563758, 4443184, 45310567, 9831968, 5458196, 51670867, 5577003, 5296868, 79844923, 98778451 ####[facility] [address] [place] [address] Potassium molar conc 3.7 mmol/L Normal 3.5-5.3 [facility] Comment on above: Performed By: #### 2 806299, 5758465, 81399656, 5410654, 8745624, 57866171, 3446456, 2466612, 85715623, 79455159 ####[place] [address] [place] [address] Sodium molar conc 137 mmol/L Normal 135-145 [facility] Comment on above: Performed By: #### 2 584116, 2982232, 20730558, 3228547, 2947343, 90418071, 7025867, 5058568, 25375734, 87932194 ####[address] [address] BNPon 01-06-2018 Natriuretic peptide B mass conc (Bld) 8 pg/mL Normal 5-80 [facility] Comment on above: Performed By: #### 2 083525, 9825144, 62106131, 5162146, 7638847, 44314310, 2075185, 2978141, 26896066, 16756901 ####[address] [place] [address] CBC w/ Auto Diffon 8 Erythrocyte distribution width Auto Ratio (RBC) 14.0 % Normal 10.9-14.2 [facility] Comment on above: Performed By: #### 2 468550, 0195391, 58744547, 2672124, 8168127, 51237716, 7546206, 4709776, 18799068, 86818998 ####[address] [place] [address] Hematocrit Auto Volume Fraction (Bld) 38.2 % Normal 34.0-46.0 [facility] Comment on above: Performed By: #### 2 756238, 7468320, 61355704, 4461545, 3338003, 95165398, 9235057, 4796428, 21198670, 32110123 ####[facility] [address] [place] [address] Hemoglobin mass conc (Bld) 13.5 g/dL Normal 12.0-16.0 [facility] Comment on above: Performed By: #### 2 520036, 4882038, 78308361, 6177675, 5588122, 38193885, 3964792, 8263617, 09092955, 65210300 ####[address] [place] 4[address]157 MCH Auto Entitic mass (RBC) 30.3 pg Normal 27.0-34.0 [facility] Comment on above: Performed By: #### 2 341392, 4782839, 94384023, 6350029, 1879049, 70866643, 4144208, 6660689, 82861398, 10724672 ####[place] [address] MCHC Auto mass conc (RBC) 35.4 g/dL Normal 31.4-39.3 [facility] Comment on above: Performed By: #### 2 500420, 7560957, 22584678, 0660836, 3976961, 08573779, 4313742, 1745839, 38848278, 86418950 ####[facility] [address] [place] [address] MCV Auto Entitic volume (RBC) 85.6 fL Normal 80.0-100.0 [facility] Comment on above: Performed By: #### 2 686244, 5371870, 87908475, 3907647, 6821761, 91249486, 0055505, 6815281, 19002913, 29227225 ####[place] [address] [place] 4998157 Platelet mean volume Auto Entitic volume (Bld) 8.7 fL Normal 6.4-10.8 [facility] Comment on above: Performed By: #### 2 959416, 0683688, 94157074, 6819451, 7163339, 65480280, 5909989, 1525392, 79082342, 83214628 ####[facility] [address] [place] [address] Platelets Auto #/vol (Bld) 178.0 E9/L Normal 150.0-500. 0 [facility] Comment on above: Performed By: #### 2 628091, 0970777, 99684710, 2057530, 5720458, 54948767, 1354572, 6825678, 81646059, 19136026 ####[facility] [address] [place] [address] RBC Auto #/vol (Bld) 4.5 E12/L Normal 4.3-5.9 [facility] Comment on above: Performed By: #### 2 343513, 6867149, 68683484, 3252765, 9338431, 01852025, 1412416, 5524861, 46824449, 03401319 ####[facility] [address] [place] [address] WBC corrected for nucl RBC Auto #/vol (Bld) 5.1 E9/L Normal 4.0-11.0 [facility] Comment on above: Performed By: #### 2 585454, 0627091, 85028214, 9192634, 1462300, 39789709, 7361238, 7846604, 12444207, 47692594 ####[address] [place] [address] ED Clinical Summaryon 2017 ED Clinical Summary [place] [id number] ED Clinical SummaryPerson Information Name: Suzette RIOS/Yeyo_Faisal Age: 37 Years : 1980 12:00 AM Sex: Female Language:Omani PCP: ROCK DUNBAR MD Marital Status: Visit Id: Visit Reason:Nausea; Dizziness; Abdominal pain; ABD PAIN, HIP PAIN Speciality: Acuity: 3 Enc Type: Emergency Med Service: Emergency Arrival:01/06/2018 7:34 PM Discharge: 01/06/2018 9:51 PM LOS: 000 02:17 Checkin:01/06/2018 7:34 PM Checkout: 01/06/2018 9:51 PM Dispo Type: Home (Routine DC) EVENTS:Event Name Event Status Request Date/Time Start Date/Time Complete Date/Time Arrive Complete 01/06/2018 7:34 PM 01/06/2018 7:34 PM 01/06/2018 7:34 PM Document Home Meds Complete 01/06/2018 7:34 PM 01/06/2018 8:19 PM 01/06/2018 8:19 PM Triage Complete 01/06/2018 7:34 PM 01/06/2018 7:42 PM 01/06/2018 7:42 PM Bed Assign Complete 01/06/2018 7:40 PM 01/06/2018 7:40 PM 01/06/2018 7:[address] Exam Complete 01/06/2018 7:40 PM 01/06/2018 7:47 PM 01/06/2018 7:47 PM RN Exam Complete 01/06/2018 7:40 PM 01/06/2018 8:02 PM 01/06/2018 8:02 PM EKG Complete 01/06/2018 7:41 PM 01/06/2018 7:47 PM Isolation Screening Request 01/06/2018 7:42 PM Registration Complete 01/06/2018 7:47 PM 01/06/2018 8:26 PM 01/06/2018 8:[address] Exam Complete 01/06/2018 7:48 PM 01/06/2018 7:48 PM 01/06/2018 7:48 PM Meds Admin Complete 01/06/2018 7:58 PM 01/06/2018 8:58 PM Pending Labs Request 01/06/2018 7:58 PM Lab Complete 01/06/2018 7:58 PM 01/06/2018 8:50 PM Patient Care Request 01/06/2018 7:58 PM RT Request 01/06/2018 7:58 PM X-Ray Complete 01/06/2018 7:58 PM 01/06/2018 8:41 PM 01/06/2018 8:58 PM Meds Admin Complete 01/06/2018 7:59 PM 01/06/2018 8:30 PM Pending Labs Complete 01/06/2018 8:17 PM 01/06/2018 8:17 PM 01/06/2018 8:42 PM Lab Complete 01/06/2018 8:17 PM 01/06/2018 8:17 PM 01/06/2018 8:42 PM Pending Labs Complete 01/06/2018 8:19 PM 01/06/2018 8:19 PM 01/06/2018 8:19 PM Pending Labs Complete 01/06/2018 8:24 PM 01/06/2018 8:24 PM 01/06/2018 8:24 PM Lab Complete 01/06/2018 8:24 PM 01/06/2018 8:24 PM 01/06/2018 8:24 PM Reg Complete Request 01/06/2018 8:26 PM Reg Bed Request Complete 01/06/2018 8:26 PM 01/06/2018 8:26 PM 01/06/2018 8:26 PM Wet Read Request 01/06/2018 8:58 PM Discharge Complete 01/06/2018 9:31 PM 01/06/2018 9:51 PM 01/06/2018 9:51 PM Transfer Complete 01/06/2018 9:51 PM 01/06/2018 9:51 PM 01/06/2018 9:51 PM ADDRESS:[address] [place] [address] [address] [facility] [id number] [facility] DOC NOTES: MEDICAL INFORMATION: Prescriptions Given:Prescription Display meclizine (meclizine 25 mg Tab) 25 mg = 1 tab(s), Oral, TID, PRN Dizziness, # 30 tab(s), Refills(s) 0, Pharmacy: [facility]/pharmacy #[id number] Home Meds Display alprazolam (Xanax 1 mg Tab) 1 mg = 1 tab(s), Oral, TID, PRN for anxiety, Refills(s) 0 citalopram (CeleXA 20 mg Tab) 20 mg = 1 tab(s), Oral, Daily olanzapine (olanzapine 5 mg oral tablet) 5 mg = 1 tab(s), Oral, Daily pantoprazole (pantoprazole 40 mg Oral EC Tab) 40 mg = 1 tab(s), Oral, BID PATIENT EDUCATION INFORMATION: Instructions:Dizziness, Fvee-ub-Rdka; Vertigo Follow up:With: Address: When: ROCK DUNBAR [address] [place], [place] [id number] Business (1) In 3 days 01/09/2018 Comments: Call physician if symptoms worsen Return to ED if symptoms worsen DIAGNOSIS:1:Vertigo Normal [facility] ED Note-Physicianon 01-07-20 ED Note-Physician Basic Information Ti me Seen: Jada Echols DO 01/06/2018 19:47Chief Complaint Pt with LLQ abdominal pain and left lower back pain that started today. Pt reports nausea, no vomiting. Denies taking any pain medications. Admitted recently in october for stomach issues.History of Present Illness 37-year-old female presents complaining of dizziness and vertigo which started earlier today. Patient is also had some left lower quadrant abdominal pain and left lower back pain. Patient has nausea but no vomiting. Patient is not having any headache. Patient is not having any difficulty with speech vision or swallowing. The patient is not having any upper or lower extremity weakness or numbness. Patient is not having any facial weakness or numbness. 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 Patient has a pacemaker/AICD in place. Patient smokes tobacco.Review of Systems Constitutional: no fever, no chills, no sweats, no weakness Skin: no rash, no lesions, nopetechiae ENMT: no ear pain, no sore throat, no congestion, no hoarseness Respiratory: no shortness of breath, no cough, no orthopnea, no wheezing Cardiovascular: no chest pain, no palpitations, no edema Gastrointestinal: moderate nausea, no vomiting, no diarrhea, no GI bleeding Genitourinary: no dysuria, no hematuria, no discharge, no pain Musculoskeletal: no back pain, no trauma Neurologic: no headache, no dizziness, no numbness, no weakness Psychiatric: no sleeping problems, no irritability, no mood swings/depression. Heme/Lymph: no bleeding tendency, no bruising tendency, no petechiae, no swollen nodes Allergy/Immunologic: no seasonal allergies, no food allergies, no recurrent infections, no impaired immunity Additional ROS info: Except as noted in the above Review of Systems and in the History of Present Illness all other systems have been reviewed and are negative or noncontributory.Physical Exam Vitals & Measurements T: 36.8 ?C (Oral) HR: 64(Peripheral) HR: 75(Monitored) RR: 18 BP: 122/80 SpO2: 98% HT: 175 cm WT: 91 kg BMI: 29.71 General: alert, no acute distress Skin: warm, dry Head: no trauma, normocephalic Neck: Trachea midline, no adenopathy, no tenderness Eye: normal conjunctiva, pulse are equal round and reactive to light, extraocular muscles are intact, no photosensitivity, visual fuentes are intact, no nystagmus is present ENMT: TM's clear, oral mucosa moist, no pharyngeal erythema or exudate Cardiovascular: regular rate and rhythm, normal peripheral perfusion Respiratory: Lungs CTA, respirations non labored Chest wall: no deformity. Gastrointestinal: soft, non distended, no tenderness, no guarding. Back: No tenderness, Normal ROM, Normal alignment. Extremities: no deformity, no trauma Neurological: oriented x 3, LOC appropriate for age, no facial weakness motor strength equal & normal bilaterally, sensation equal & normal bilaterally, speech normal Psychiatric: cooperative, affect appropriate for age, normal judgement, normal psychiatric thoughts.Medical Decision Making 2131 hours. Patient is improved. No change in neurologic or mental statusAssessment/Plan 1. Vertigo Orders: meclizine, 25 mg = 1 tab(s), Tab, Oral, Once, Stop date 01/06/18 19:58:00 EDT, STAT, Start date 01/06/18 19:58:00 EDT promethazine, 12.5 mg, Injection, IV Piggyback, Once, Stop date 01/06/18 19:58:00 EDT, STAT, Start date 01/06/18 19:58:00 EDT Sodium Chloride 0.9% intravenous solution 1,000 mL, 1,000 mL, IV, 1,000 mL/hr, for 1 hour(s), Stop date 01/06/18 20:56:00 EDT, STAT, Start date 01/06/18 19:57:00 EDT, 1 hour(s), Total volume (mL): 1,000, Bolus Dose: 1,000 mL B-Type Natriuretic Peptide Basic Metabolic Panel CBC w/ Auto Diff ED Cardiac Monitoring Magnesium Level Oxygen Saturation Oxygen Therapy PT & PTT Saline Lock Insert Troponin 0 Hr. Troponin 3 Hr. Troponin 6 Hr. Troponin 9 Hr. XR Chest 2 ViewsMedications Administered Given NS 1000 ml Bolus 1,000 mL, 1000 mL, IV meclizine 25 mg Tab, 25 mg, Oral [id number] [F], 12.5 mg, IV PushDisposition Plan Patient Discharge Condition Improved Discharge Disposition Home Discharge Prescription List Prescriptions meclizine 25 mg Tab, 25 mg= 1 tab(s), Oral, TID, PRN Follow-up With When Contact Information ROCK FRAKNLINCHEYENNE In 3 days 01/09/[address]T [address] [facility] (1) Additional Instructions: Call physician if symptoms worsen Return to ED if symptoms worsen Patient Education Dizziness, Blvn-wi-Mpxe VertigoProblem List/Past Medical History Ongoing Cardiomyopathy CHF - Congestive heart failure Pulmonary embolism Smoker Historical No qualifying dataProcedure/Surgical History Cardiac pacemaker (2008), Implantation of automatic cardioverter/defibrillator, total system (AICD) (2008), Abdominal hysterectomy, delivery, Cholecystectomy, Excision of tonsil, Gastric bypass, hand surgery.Medications Inpatient meclizine 25 mg Tab, 25 mg= 1 tab(s), Oral, Once NS 1000 ml Bolus 1,000 mL, 1000 mL, IV Phenergan 25 mg/mL Injection, 12.5 mg, IV Piggyback, Once Home clonazepam 1 mg Tab, 1 mg= 1 tab(s), Oral, TID, PRN Coreg 25 mg Tab, 25 mg= 1 tab(s), Oral, Daily Lasix 20 mg Tab, 20 mg= 1 tab(s), Oral, BID venlafaxine 75 mg Tab, 75 mg= 1 tab(s), Oral, DailyAllergies Bactrim (Rash) Mefoxin (Rash) amoxicillin (Rash)Social History Alcohol - Denies Alcohol Use, 10/04/2017 Current, 10/04/2017 Substance Abuse - Denies Substance Abuse, 10/04/2017 Tobacco - High Risk, 10/04/2017 10 or more cigarettes (1/2 pack or more)/day in last 30 days Tobacco Use:., 04/16/2018Family History Acute myocardial infarction: Mother. Asthma: Mother and Sister. Clotting disorder: Father. Dementia: Father. Depression: Mother and Sister. Diabetes mellitus type 2: Mother. Hyperlipidemia: Mother. Hypertension: Mother and Father. Renal failure syndrome: Mother. Sleep apnea: Mother. Stroke: Mother and Father.Lab Results WBC: 5.1 E9/L (01/06/18 19:45:00 EDT) RBC: 4.5 E12/L (01/06/18 19:45:00 EDT) Hgb: 13.5 gm/dL (01/06/18 19:45:00 EDT) Hct: 38.2 % (01/06/18 19:45:00 EDT) MCV: 85.6 fL (01/06/18 19:45:00 EDT) MCH: 30.3 pg (01/06/18 19:45:00 EDT) MCHC: 35.4 gm/dL (01/06/18 19:45:00 EDT) RDW: 14 % (01/06/18 19:45:00 EDT) Platelet: 178 E9/L (01/06/18 19:45:00 EDT) MPV: 8.7 fL (01/06/18 19:45:00 EDT) Neutro Auto: 72.7 % (01/06/18 19:45:00 EDT) Lymph Auto: 17.2 % (01/06/18 19:45:00 EDT) Kenton Auto: 6.9 % (01/06/18 19:45:00 EDT) Eos Auto: 2.3 % (01/06/18 19:45:00 EDT) Basophil Auto: 0.9 % (01/06/18 19:45:00 EDT) Neutro Absolute: 3.7 E9/L (01/06/18 19:45:00 EDT) Lymph Absolute: 0.9 E9/L Low (01/06/18 19:45:00 EDT) Kenton Absolute: 0.4 E9/L (01/06/18 19:45:00 EDT) Eos Absolute: 0.1 E9/L (01/06/18 19:45:00 EDT) Basophil Absolute: 0 E9/L (01/06/18 19:45:00 EDT) PT: 11.3 second(s) (01/06/18 19:45:00 EDT) INR: 1 (01/06/18 19:45:00 EDT) PTT: 38.5 second(s) High (01/06/18 19:45:00 EDT) Glucose Lvl: 117 mg/dL (01/06/18 19:45:00 EDT) BUN: 7 mg/dL (01/06/18 19:45:00 EDT) Creatinine: 0.7 mg/dL (01/06/18 19:45:00 EDT) eGFR: >60 (01/06/18 19:45:00 EDT) eGFR AA: >60 (01/06/18 19:45:00 EDT) BUN/Creat Ratio: 10 (01/06/18 19:45:00 EDT) Sodium Lvl: 137 mmol/L (01/06/18 19:45:00 EDT) Potassium Lvl: 3.7 mmol/L (01/06/18 19:45:00 EDT) Chloride: 105 mmol/L (01/06/18 19:45:00 EDT) CO2: 24 mmol/L (01/06/18 19:45:00 EDT) AGAP: 12 mEq/L (01/06/18 19:45:00 EDT) Calcium Lvl: 8.8 mg/dL Low (01/06/18 19:45:00 EDT) Magnesium: 1.9 mg/dL (01/06/18 19:45:00 EDT) Troponin: <0.03 (01/06/18 19:45:00 EDT) BNP: 8 pg/mL (01/06/18 19:45:00 EDT)Diagnostic Results XR Chest 2 Views * Preliminary * 01/06/18 21:23:03 : No infiltrate, mass or other acute cardiopulmonary abnormalityRead By: Jada Echols DO FEKG Results Electronic ventricular pacemaker 73 bpm. Similar to previous EKGs. Normal [facility] Comment on above: Result Comment: Elec tronically Signed By: Jada Echols DO\.br\Date and Time Signed: 01/06/18 21:33 EDT ED Patient Education Noteon 01-06-2018 ED Patient Education Note ENTDizzinessDizziness means you feel unsteady or lightheaded. You might feel like you are going to pass out (faint). HOME CARE? Drink enough fluids to keep your pee (urine) clear or pale yellow.? Take your medicines exactly as told by your doctor. If you take blood pressure medicine, always stand up slowly from the lying or sitting position. Hold on to something to steady yourself.? If you need to solar energy engineer one place for a long time, move your legs often. Tighten and relax your leg muscles.? Have someone stay with you until you feel okay.? Do not drive or use heavy machinery if you feel dizzy.? Do not drink alcohol.GET HELP RIGHT AWAY IF:? You feel dizzy or lightheaded and it gets worse.? You feel sick to your stomach (nauseous), or you throw up (vomit).? You have trouble talking or walking.? You feel weak or have trouble using your arms, hands, or legs.? You cannot think clearly or have trouble forming sentences.? You have chest pain, belly (abdominal) pain, sweating, or you are short of breath.? Your vision changes.? You are bleeding.? You have problems from your medicine that seem to be getting worse.MAKE SURE YOU:? Understand these instructions.? Will watch your condition.? Will get help right away if you are not doing well or get worse.Document Released: 05/26/2012 Document Revised: 08/29/2012 Document Reviewed: 05/26/2012ExitCare? Patient Information ?2015 [employer]. This information is not intended to replace advice given to you by your health care provider. Make sure you discuss any questions you have with your health care provider.Family MedicineVertigoVertigo means you feel like you or your surroundings are moving when they are not. Vertigo can be dangerous if it occurs when you are at work, driving, or performing difficult activities. CAUSESVertigo occurs when there is a conflict of signals sent to your brain from the visual and sensory systems in your body. There are many different causes of vertigo, including:? Infections, especially in the inner ear.? A bad reaction to a drug or misuse of alcohol and medicines. ? Withdrawal from drugs or alcohol.? Rapidly changing positions, such as lying down or rolling over in bed. ? A migraine headache.? Decreased blood flow to the brain.? Increased pressure in the brain from a head injury, infection, tumor, or bleeding.SYMPTOMSYou may feel as though the world is spinning around or you are falling to the ground. Because your balance is upset, vertigo can cause nausea and vomiting. You may have involuntary eye movements (nystagmus).DIAGNOSISVertigo is usually diagnosed by physical exam. If the cause of your vertigo is unknown, your caregiver may perform imaging tests, such as an MRI scan (magnetic resonance imaging).TREATMENTMost cases of vertigo resolve on their own, without treatment. Depending on the cause, your caregiver may prescribe certain medicines. If your vertigo is related to body position issues, your caregiver may recommend movements or procedures to correct the problem. In rare cases, if your vertigo is caused by certain inner ear problems, you may need surgery.HOME CARE INSTRUCTIONS? Follow your caregiver's instructions.? Avoid driving.? Avoid operating heavy machinery.? Avoid performing any tasks that would be dangerous to you or others during a vertigo episode.? Tell your caregiver if you notice that certain medicines seem to be causing your vertigo. Some of the medicines used to treat vertigo episodes can actually make them worse in some people.SEEK IMMEDIATE MEDICAL CARE IF:? Your medicines do not relieve your vertigo or are making it worse.? You develop problems with talking, walking, weakness, or using your arms, hands, or legs.? You develop severe headaches.? Your nausea or vomiting continues or gets worse.? You develop visual changes.? A family member notices behavioral changes.? Your condition gets worse.MAKE SURE YOU:? Understand these instructions.? Will watch your condition.? Will get help right away if you are not doing well or get worse.Document Released: 03/17/2006 Document Revised: 08/29/2012 Document Reviewed: 12/24/2011ExitCare? Patient Information ?2014 [employer]. This information is not intended to replace advice given to you by your health care provider. Make sure you discuss any questions you have with your health care provider. Normal [facility] ED Patient Summaryon 018 ED Patient Summary (Inserted Image. Lolis ble to display) [place] [id number] Patient Discharge Instructions Person Information Name: CARITO RIOS Age: 37 Years Date: 01/06/2018 7:34 PMDischarge Diagnosis: 1:Vertigo Primary Care Physician: ROCK DUNBAR MD Provider InformationPrformerly [facility] Provider: Jada Echols Adjunct Physics Instructor:None The exam and treatment you received in the Emergency Department were for an urgent problem and are not intended as complete care. It is important that you follow up with a doctor, nurse practitioner, or physician?s maintenance assistant for ongoing care. If your symptoms become worse or you do not improve as expected and you are unable to reach your usual health care provider, you should return to the Emergency Department. We are available 24 hours a day. CARITO RIOS has been given the following list of patient education materials, prescriptions and follow-up instructions: Follow-up Instructions:With: Address: When: ROCK DUNBAR [address] [place] [address] [facility] () In 3 days 01/09/2018 Comments: Call physician if symptoms worsen Return to ED if symptoms worsen In the event that this physician does not participate in your insurance network, please consult with your insurance company to find a nearby participating provider. Patient Education Materials:Dizziness, Jhby-wt-Pxdx; Vertigo A MESSAGE TO ALL PATIENTS REGARDING OPIOIDS PRESCRIPTION OPIOIDS: WHAT YOU NEED TO KNOW Prescription opioids can be used to help relieve oyxaeosc-dw-brkflh pain and are often prescribed following a surgery or injury, or for certain health conditions. These medications can be an important part of the treatment but also come with serious risks. It is important to work with your healthcare provider to make sure you are getting the safest, most effective care. WHAT ARE THE RISKS AND SIDE EFFECTS OF OPIOID USE?Prescription opioids carry serious risks of addiction and overdose, especially with prolonged use. An opioid overdose, often marked by slowed breathing, can cause sudden . The use of prescription opioids can have a number of side effects as well, even when taken as directed:? Tolerance?meaning you might need to take more of the medication for the same pain relief? Physical dependence?meaning you have symptoms of withdrawal when a medication is stopped? Increased sensitivity to pain ? Constipation? Nausea, vomiting, and dry mouth? Sleepiness and dizziness? Confusion? Depression? Low levels of testosterone that can result in lower sex drive, energy, and strength? Itching and sweating RISKS ARE GREATER WITH:? History of drug misuse, substance use disorder, or overdose? Mental health conditions (such as depression or anxiety)? Sleep apnea? Older age (65 years and older)? Avoid alcohol while taking prescription opioids. Also, unless specifically advised by your health care provider, medications to avoid include:? Benzodiazepines (such as Xanax or Valium)? Muscle relaxants (such as Soma or Flexeril)? Hypnotics (such as Ambien or Lunesta)? Other prescription opioids KNOW YOUR OPTIONSTalk to your health care provider about ways to manage your pain that don?t involve prescription opioids. Some of these options may actually work better and have fewer risks and side effects. Options may include:? Pain relievers such as acetaminophen, ibuprofen, and naproxen? Some medication that are also used for depression or seizures? Physical therapy and exercise? Cognitive behavioral therapy, a psychological, goal-directed approach, in which patients learn how to modify physical, behavioral, and emotional triggers of pain and stress. IF YOU ARE PRESCRIBED OPIOIDS FOR PAIN:? Never take opioids in greater amounts or more often than prescribed.? Follow up with your primary health care provider.o Work together to create a plan on how to manage your pain.o Talk about ways to help manage your pain that don?t involve prescription opioids.o Talk about any and all concerns and side effects.? Help prevent misuse and abuseo Never sell or share prescription opioids.o Never use another person?s prescription opioids.? Store prescription opioids in a secure place and out of reach of others (this may include visitors, children, friends, and family).? Safely dispose of unused prescription opioids: Find your community drug take-back program or your pharmacy mail-back program, or flush them down the toilet, following guidance from the Food and Drug Administration (www.fda.gov/Drugs/ResourcesFor You).? Visit www.cdc.gov/drugoverdose to learn about the risks of opioids abuse and overdose.? If you believe you may be struggling with addiction, tell your health weekend caregiver and ask for guidance or call [facility] National Helpline at 9-799-384-OSAB. n Source: US Department of Health and Human Services/Center for Disease Control & Prevention [facility] Medications Given:Medication Dose Route Sodium Chloride 0.9% intravenous solution 1000.00 mL Initial Volume 1000.00 mL/hr IV Left Lower Forearm promethazine 12.50 mg IV Push Left Lower Forearm meclizine 25.00 mg Oral [facility]ication Information:[id number] [address] [place] [address], [phone] (meclizine 25 mg Tab) 1 Tabs By Mouth 3 times a day as needed Dizziness. Refills: 0.Medications to Continue with No ChangesOther Medicationsalprazolam (Xanax 1 mg Tab) 1 Tabs By Mouth 3 times a day as needed for anxiety.citalopram (CeleXA 20 mg Tab) 1 Tabs By Mouth every day.furosemide (Lasix 20 mg Tab) 1 Tabs By Mouth 2 times a day as needed Edema.olanzapine (olanzapine 5 mg oral tablet) 1 Tabs By Mouth every day.pantoprazole (pantoprazole 40 mg Oral EC Tab) 1 Tabs By Mouth 2 times a day.No Longer Take the Following Medicationscarvedilol (Coreg 25 mg Tab) 1 Tabs By Mouth every day.clonazepam (clonazepam 1 mg Tab) 1 Tabs By Mouth 3 times a day as needed Anxiety.venlafaxine (venlafaxine 75 mg Tab) 1 Tabs By Mouth every day.Comment: Pharmacy Information: [facility] Thank you for choosing [facility] Patient Education Materials: DizzinessDizziness means you feel unsteady or lightheaded. You might feel like you are going to pass out (faint). HOME CARE? Drink enough fluids to keep your pee (urine) clear or pale yellow.? Take your medicines exactly as told by your doctor. If you take blood pressure medicine, always stand up slowly from the lying or sitting position. Hold on to something to steady yourself.? If you need to solar energy engineer one place for a long time, move your legs often. Tighten and relax your leg muscles.? Have someone stay with you until you feel okay.? Do not drive or use heavy machinery if you feel dizzy.? Do not drink alcohol.GET HELP RIGHT AWAY IF:? You feel dizzy or lightheaded and it gets worse.? You feel sick to your stomach (nauseous), or you throw up (vomit).? You have trouble talking or walking.? You feel weak or have trouble using your arms, hands, or legs.? You cannot think clearly or have trouble forming sentences.? You have chest pain, belly (abdominal) pain, sweating, or you are short of breath.? Your vision changes.? You are bleeding.? You have problems from your medicine that seem to be getting worse.MAKE SURE YOU:? Understand these instructions.? Will watch your condition.? Will get help right away if you are not doing well or get worse.Document Released: 05/26/2012 Document Revised: 08/29/2012 Document Reviewed: 05/26/2012ExitCare? Patient Information ?2015 [employer]. This information is not intended to replace advice given to you by your health care provider. Make sure you discuss any questions you have with your health care provider.VertigoVertigo means you feel like you or your surroundings are moving when they are not. Vertigo can be dangerous if it occurs when you are at work, driving, or performing difficult activities. CAUSESVertigo occurs when there is a conflict of signals sent to your brain from the visual and sensory systems in your body. There are many different causes of vertigo, including:? Infections, especially in the inner ear.? A bad reaction to a drug or misuse of alcohol and medicines. ? Withdrawal from drugs or alcohol.? Rapidly changing positions, such as lying down or rolling over in bed. ? A migraine headache.? Decreased blood flow to the brain.? Increased pressure in the brain from a head injury, infection, tumor, or bleeding.SYMPTOMSYou may feel as though the world is spinning around or you are falling to the ground. Because your balance is upset, vertigo can cause nausea and vomiting. You may have involuntary eye movements (nystagmus).DIAGNOSISVertigo is usually diagnosed by physical exam. If the cause of your vertigo is unknown, your caregiver may perform imaging tests, such as an MRI scan (magnetic resonance imaging).TREATMENTMost cases of vertigo resolve on their own, without treatment. Depending on the cause, your caregiver may prescribe certain medicines. If your vertigo is related to body position issues, your caregiver may recommend movements or procedures to correct the problem. In rare cases, if your vertigo is caused by certain inner ear problems, you may need surgery.HOME CARE INSTRUCTIONS? Follow your caregiver's instructions.? Avoid driving.? Avoid operating heavy machinery.? Avoid performing any tasks that would be dangerous to you or others during a vertigo episode.? Tell your caregiver if you notice that certain medicines seem to be causing your vertigo. Some of the medicines used to treat vertigo episodes can actually make them worse in some people.SEEK IMMEDIATE MEDICAL CARE IF:? Your medicines do not relieve your vertigo or are making it worse.? You develop problems with talking, walking, weakness, or using your arms, hands, or legs.? You develop severe headaches.? Your nausea or vomiting continues or gets worse.? You develop visual changes.? A family member notices behavioral changes.? Your condition gets worse.MAKE SURE YOU:? Understand these instructions.? Will watch your condition.? Will get help right away if you are not doing well or get worse.Document Released: 03/17/2006 Document Revised: 08/29/2012 Document Reviewed: 12/24/2011ExitCare? Patient Information ?2014 [employer]. This information is not intended to replace advice given to you by your health care provider. Make sure you discuss any questions you have with your health care provider.TOVA Dinh MACKENZIE , have received the following patient education materials/instructions and have verbalized understanding: Patient Education Materials: Dizziness, Dlyc-qz-Ykow; Vertigo Follow-up Instructions: With: Address: When: ROCK DUNBAR [address] [place], [place] [id number] Business (1) In 3 days 01/09/2018 Comments: Call physician if symptoms worsen Return to ED if symptoms worsen Prescriptions: [meclizine (meclizine 25 mg Tab)] Patient Signature Date Clinician/Nurse Signature Date 01/06/18 21:51:17 Normal [facility] Magnesiumon 01-06-2018 Magnesium mass conc 1.9 mg/dL Normal 1.3-2.4 [facility] Comment on above: Performed By: #### 2 [id number], [id number], [id number], [id number], [id number], [id number], 0328526, 0356954, [id number], [id number] ####[facility] [address] [place] [address] PT & PTTon 01-06-2018 aPTT Coag time (Bld) 38.5 second(s) High 25.1-36.5 [facility] Comment on above: Result Comment: Hepa rin therapeutic range (represented by Anti-Factor Xa activity of 0.2 - 0.4 U/mL) corresponds to PTT of 53.9 - 87.4 sec. Performed By: #### 2 [id number], [id number], [id number], 5164006, 4515653, [id number], 3666056, 8979756, 62334315, [id number] ####[facility] [address] [place] [address] INR Coag RelTime (PPP) 1.0 {INR} Invalid Interpretation Code [facility] Comment on above: Result Comment: INR results are specifically intended to assess patients stabilized on long-term Anticoagulation therapy suggested INR?s ?Less Intensive Anticoagulation? 2.0 ? 3.0Conventional Range 3.0 ? 4.5 Performed By: #### 2 [id number], [id number], [id number], 7083808, 6407875, 82864980, 4943040, 9385777, 04829857, [id number] ####[facility] [address] [place] [address] Prothrombin time (PT) Coag time (PPP) 11.3 second(s) Normal 10.2-12.9 [facility] Comment on above: Performed By: #### 2 [id number], 3111404, 31196626, 1969112, 8788471, 62014683, 9399862, 4356165, 60624754, [id number] ####[facility] [address] [place] [address] Progress Note - Pharmacyon 0 01-06-2018 Protein mass conc Pharmacy Medication HistoryI reviewed and updated all of the patient's home medications, including OTC's, vitamins, and herbal supplements.Source of information:Patient [facility] Allergies (3) Active Reactionamoxicillin RashBactrim RashMefoxin Rash Home Medications (5) ActiveCeleXA 20 mg Tab 20 mg = 1 tab(s), Oral, DailyLasix 20 mg Tab 20 mg = 1 tab(s), PRN, Oral, BIDolanzapine 5 mg oral tablet 5 mg = 1 tab(s), Oral, Dailypantoprazole 40 mg Oral EC Tab 40 mg = 1 tab(s), Oral, BIDXanax 1 mg Tab 1 mg = 1 tab(s), PRN, Oral, TID Last doses:Had all medications yesterday exccept the lasixBarriers to medication adherence:None Other comments:-Medications added:OlanzapineCelexaXanaxPant oprazole-Medications removed:Clonazepam CarvedilolEffexor-Medications updated: Normal [facility] Troponin 0 Hr.on 01-06-2018 Troponin I.cardiac mass conc ng/mL Normal <=0.03 [facility] Comment on above: Result Comment: New Troponin Assay 11/02/13ROC CA Cutoff value > or = 0.03 ng/mL in conjunction with clinical conditions of myocardial infarction.(www.escardio.org/guidelines) Performed By: #### 2 406385, 7818558, 94313290, 7153839, 8102378, 35878379, 0956705, 4662755, 37327832, [id number] ####[facility] [address] [place] [address] eGFRon 01-06-2018 GFR/1.73 sq M predicted among blacks MDRD vol rate/area (S/P/Bld) mL/min/{1.73_m2} Normal >=59 [facility] Comment on above: Order Comment: Order added by Discern Expert. Result Comment: eGFR is race adjusted. AA=. Performed By: #### 2 505896, 9471630, 35001902, 2438849, 1175549, 37107497, 3650562, 1924720, 27468060, [id number] ####[facility] [address] [place] [address] GFR/1.73 sq M predicted among non-blacks MDRD vol rate/area (S/P/Bld) mL/min/{1.73_m2} Normal >=59 [facility] Comment on above: Order Comment: Order added by Discern Expert. Result Comment: Drilling Field Specialist nya kidney disease could be indicated at eGFR's of less than 60 mL/min/1.73m2. Kidney failure is indicated at less than 15 mL/min/1.73m2. Performed By: #### 2 716789, 9564730, 15185905, 0893410, 8110645, 17252217, 1725614, 3755368, 31885523, [id number] ####[facility] [address] [place] [address] Coding Summary.on 11-17-2017 Coding Summary. CODING DATE: 018 FINAL [facility] STATUS: Home (Routine DC) PAYOR: Medicaid EA DESCRIPTION 0331 LEVEL II DIAGNOSTIC NUCLEAR MEDICINE 0490 INCIDENTAL TO MEDICAL, SIGNIFICANT PROCEDURE OR THERAPY VISIT ADMIT DX: REASON FOR VISIT DX: R11.0 Nausea FINAL DX: PRINCIPAL: R11.0 Nausea SECONDARY: K21.0 Gastro-esophageal reflux disease with esophagitis R07.9 Chest pain, unspecified Z86.010 Personal history of colonic polyps PYMT PROC EAPG STAT DESCRIPTION DOCTOR NAME DATE NOTE: The code number assigned matches the documented diagnosis and / or procedure in the patient's chart. However, the narrative phrase printed from the coding software may appear abbreviated, or result in slightly different terminology. Coded By: Faina Salazar Date Saved: 11/17/2017 08:31 am Normal [facility] NM Gastric Emptying Studyon 11-16-2017 NM Gastric Emptying Study Exam Date/Time:11/16/2017 10:40 EDTReason for Exam:NAUSEA ALONEReportIMPRESSION: NORMAL GASTRIC EMPTYING RATE.EXAM: Gastric Emptying StudyCOMPARISONS: NONEREASON FOR EXAMINATION: Delayed gastric emptying. TECHNIQUE: 0.9 mCi of [id number] was mixed with eggbeaters, toast, jelly and water.FINDINGS: Static images of the upper abdomen were obtained over 120 minutes afterthe ingestion of the radionuclide. The gastric emptying rate measures 2.5%. This denia normal gastric emptying rate. FINAL REPORT Dictated: 11/16/2017 1:19 pm Dayton Alarcon MD Signed (Electronic Signature): 11/16/2017 3:14 pm Signed by: Dayton Alarcon MD Transcribed by: geovanny Technologist: KTTTechnical CommentsDose (mCi Tc99m Sulfur Colloid): 0.9Dose Administered With: 3.5oz Egg Beaters, 1 Slice [place] with 14g Jelly, and 20mL WaterTime Frame Required to Ingest the Meal (mins): 7% Remainin.5 hr (Lower Limit 70%) 45.61.0 hr (Lower Limit 30%, Upper Limit 90%) 34.62.0 hr (Upper Limit 60%) 2.5 Normal [facility] Discharge Summaryon 10-20-19 18 Discharge Summary Admission Informatio n Admitting Physician - Yovanny Pollard DO Consulting Physician - Aguilar Pizano MD Admitting Diagnoses: Chronic GERD, 10/05/2017Hospital Course Pt is a 37 F admitted with complaints of chest pain. pt was ruled out for ACS with negative cardiac enzymes, no EKG changes. Pt was seen by [facility] cardiology who recommended no further cardiac workup and follow up with her rn x ray at [facility]. pt was seen by GI, had an EGD that showed gastritis and los swetha grade C esophagitis. Pt being discharged on PO PPI BID. pt taking PO well, up ambulating without difficulty. Pt discharged home in improved condition to follow up as above. Significant Findings No qualifying data available.Physical Exam General: alert, no acute distress ENMT: , oral mucosa moist, Cardiovascular: regular rate and rhythm, normal peripheral perfusion Respiratory: Lungs CTA, respirations non labored Extremities: no deformity, no trauma Neurological: LOC appropriate for age, CN II-XII intact, motor strength equal & normal bilaterally, sensation equal & normal bilaterally, speech normalImages No qualifying data available.Discharge Plan Discharge Date/Time:10/05/2017 16:48 1. Chest pain 2. Dizzy spells 3. Nausea 4. Cardiomyopathy 5. History of pulmonary embolism 6. Acute hypokalemia 7. Tobacco abuse 8. Splenomegaly 9. H/O bariatric surgery 10. Chronic anxiety Chronic GERD Discharge Medication List Prescriptions nicotine 7 mg/24 hr Transderm ER Film, 1 patch(es), TransDermal, Daily pantoprazole 40 mg Oral EC Tab, 40 mg= 1 tab(s), Oral, BID Home clonazepam 1 mg Tab, 1 mg= 1 tab(s), Oral, TID, PRN Coreg 25 mg Tab, 25 mg= 1 tab(s), Oral, Daily Lasix 20 mg Tab, 20 mg= 1 tab(s), Oral, BID venlafaxine 75 mg Tab, 75 mg= 1 tab(s), Oral, Daily Follow-up With When Contact Information Aguilar Goodman Within 7 to 10 days [address] [place] [address]- Business (1) Additional Instructions: Call for followup appointment [facility] Within 3 to 5 days [address] [place] [address]- Business (1) Additional Instructions: Call for followup appointment follow up with your rn x ray at [facility] Within 1 week Additional Instructions: Maria T [facility] Comment on above: Result Comment: Elec tronically Signed By: Alona LEIJA, Makayla\.br\Date and Time Signed: 10/19/17 11:09 EDT Coding Summary.on 10-08-2017 Coding Summary. CODING DATE: 018 FINAL [facility] STATUS: Home (Routine DC) PAYOR: Medicaid EA DESCRIPTION 0413 CARDIOGRAM 0457 VENIPUNCTURE 0400 LEVEL I CHEMISTRY TESTS 0408 LEVEL I HEMATOLOGY TESTS 0406 LEVEL I CLOTTING TESTS 0403 ORGAN OR DISEASE ORIENTED PANELS 0401 LEVEL II CHEMISTRY TESTS 0496 MINOR PHARMACOTHERAPY 0495 MINOR CHEMOTHERAPY DRUGS 0302 ANGIOGRAPHY, OTHER 0490 INCIDENTAL TO MEDICAL, SIGNIFICANT PROCEDURE OR THERAPY VISIT 0300 CAT SCAN - ABDOMEN 0999 UNASSIGNED 0111 PHARMACOTHERAPY EXCEPT BY EXTENDED INFUSION 0604 CHEST PAIN ADMIT DX: REASON FOR VISIT DX: R07.89 Other chest pain FINAL DX: PRINCIPAL: R07.89 Other chest pain SECONDARY: I42.9 Cardiomyopathy, unspecified I50.20 Unspecified systolic (congestive) heart failure K29.50 Unspecified chronic gastritis without bleeding K20.9 Esophagitis, unspecified F17.210 Nicotine dependence, cigarettes, uncomplicated E87.6 Hypokalemia R42 Dizziness and giddiness F41.9 Anxiety disorder, unspecified R16.1 Splenomegaly, not elsewhere classified R11.0 Nausea Z95.0 Presence of cardiac pacemaker Z95.810 Presence of automatic (implantable) cardiac defibrillator Z86.711 Personal history of pulmonary embolism Z98.84 Bariatric surgery status Z88.1 Allergy status to other antibiotic agents status Z88.0 Allergy status to penicillin Z88.8 Allergy status to other drugs, medicaments and biological substances status Z83.3 Family history of diabetes mellitus Z82.49 Family history of ischemic heart disease and other diseases of the circulatory system Z81.8 Family history of other mental and behavioral disorders Z82.3 Family history of stroke Z84.1 Family history of disorders of kidney and ureter PYMT PROC [facility] STAT DESCRIPTION DOCTOR NAME DATE [id number] Madeline Goodman MD, Katherine 10/05/2017 phagogastroduodenoscopy, flexible, transoral; with biopsy, single or multiple [id number] Anesthesia for upper Madeline Goodman MD, Katherine 10/05/2017 gastrointestinal endoscopic procedures, endoscope introduced proximal to duodenum; not otherwise specified NOTE: The code number assigned matches the documented diagnosis and / or procedure in the patient's chart. However, the narrative phrase printed from the coding software may appear abbreviated, or result in slightly different terminology. Revised Coded By: Tequila Benito Revised Date Saved: 10/08/2017 01:11 pm Normal [facility] Main OR Intraoperative Recor don 10-06-2017 Main OR Intraoperative Record IntraOp Document Type FT Summary Primary Physician: Aguilar Pizano MD Finalized Date/Time: 10/06/17 10:10:40 Pt. Name: CARITO RIOS An/Sex: 1980 Female Med Rec #: [id number] Physician: Jada Echols DO Financial #: [id number] Pt. Type: O Room/Bed: [place] [address] Admit/Disch: 10/04/17 21:16:00 - 10/05/17 18:18:00 Institution: Case Times FT Entry 1 Patient Times In Room 10/05/17 15:11:00 Out Room 10/05/17 15:23:00 Procedure Times Start 10/05/17 15:14:00 Stop 10/05/17 15:19:00 Anesthesia Times Start 10/05/17 15:11:00 Stop 10/05/17 15:23:00 Last Modified By: Irena Mccauley CST 10/05/17 15:23:04 General Comments: 10/06/2017 Chart opened to review and send charges Dougie sales and marketing executive Case Attendance FT Entry 1 Entry 2 Entry 3 Case Attendee Madeline Goodman MD, Shaquille Masters DO, Robi Connors RN, Lila Sheikh Role Performed Surgeon - Primary Anesthesiologist of Clinical Laboratory Technologist - Primary Record Time In 10/05/17 15:11:00 10/05/17 15:11:00 10/05/17 15:11:00 Time Out 10/05/17 15:23:00 10/05/17 15:23:00 10/05/17 15:23:00 Procedure EGD(.) EGD(.) EGD(.) Comments Last Modified By: Rene RN, Bhavya López RN, Bhavya López RN, Bhavya Lindsey 10/05/17 15:23:07 10/05/17 15:23:07 10/05/17 15:23:07 Entry 4 Entry 5 Entry 6 Case Attendee Rene RN, Bhavya Dan SALES ACCOUNT MANAGER, Jody Moreira SALES ACCOUNT MANAGER, Amberly Matos Role Performed Clinical Laboratory Technologist - Other Scrub - Other Scrub - Primary Time In 10/05/17 15:11:00 10/05/17 15:14:00 10/05/17 15:11:00 Time Out 10/05/17 15:23:00 10/05/17 15:23:00 10/05/17 15:23:00 Procedure EGD(.) EGD(.) EGD(.) Comments Orienting to room. help in room. Last Modified By: Bhavya López RN, RN, Bhavya Conroy RN 10/05/17 15:23:07 10/05/17 15:23:35 10/05/17 15:23:07 Perioperative Protocols FT Pre-Care Text: Implements protective measures prior to operative or invasive procedure, confirms identity before the operative or invasive procedure, verifies operative procedure, surgical site, and laterality Entry 1 Procedure(s) EGD(.) Patient Identity Birthday, ID Band Verified (select at Check, Patient least 2): Participation Consents / H and P Anesthesia Consent, Operative Site N/A Verified HandP, Surgery/Procedure Marking Verified Consent Surgical Site No Laterality Verified n/a Verified Procedure Verified Yes Correct Patient Yes Position Verified Availability Equipment, Medication Prep Dry n/a Verified (If Applicable) PreOp Antibiotic No Time Out Madeline Goodman MD, Given Participants Shaquille Sheikh Jr, DO, Waylon Camaerna RN, Rene Waters RN, Lillie Johnson CST, Macie C Time Out Complete 10/05/17 15:13:00 Outcomes Met? Yes Last Modified By: Bhavya López RN 10/05/17 15:14:15 Post-Care Text: The patient is free from signs and symptoms of injury caused by extraneous objects Allergy Information FT Pre-Care Text: Verifies allergies Entry 1 Allergies Reviewed? Yes Allergies Reviewed Self/Patient With Outcomes Met? Yes Last Modified By: Bhavya López RN 10/05/17 13:03:17 Post-Care Text: The patient received appropriate medication(s) safely administered during the perioperative period Surgical Procedures FT Entry 1 Procedure Description Procedure EGD Modifiers . Surgeon Description EGD with gastric biopsy. Primary Procedure Yes Primary Surgeon Madeline Goodman MD, Aguilar Orozco 10/05/17 15:14:00 Stop 10/05/17 15:19:00 Anesthesia Type General Surgical Service Gastroenterology Wound Class 2 - Clean-Contaminated Last Modified By: Bhavya López RN 10/05/17 15:19:24 General Case Data FT Pre-Care Text: Classifies surgical wound, implements aseptic technique, initiates traffic control Entry 1 Case Information OR ENDO 1 FT Case Level Level 2 Wound Class 2 - Clean-Contaminated Specialty Gastroenterology ASA Class 3 Preop Diagnosis Chest pain, nausea Postop Same As Preop No Postop Diagnosis Moderate grade c Outcomes Met? Yes esophagitis and mild antral gastritis Last Modified By: Bhavya López RN 10/05/17 15:22:59 Post-Care Text: The patient is free from signs and symptoms of infection Skin Assessment (Pre Procedure) FT Pre-Care Text: Implements protective measures to prevent skin/ tissue injury due to thermal or mechanical sources Evaluates for signs and symptoms of physical injury to skin and tissue Entry 1 Skin Integrity Intact, Lindsey, Warm, and Skin Abnormality No Dry Outcomes Met? Yes Last Modified By: Bhavya López RN 10/05/17 13:03:46 Post-Care Text: The patient is free from signs and symptoms of injury caused by extraneous objects Patient Positioning FT Pre-Care Text: Identifies physical alterations that require additional precautions for procedure-specific positioning, verifies presence of prosthetics or corrective devices, positions the patient, evaluates the patient for signs and symptoms of injury as a result of positioning Entry 1 Procedure EGD(.) Body Position Lateral, right side up Feet Uncrossed? Yes Left Arm Position Resting at Side Right Arm Position Resting at Side Left Leg Position Extended Right Leg Position Extended Positioning Device Safety Strap, Pillow Under Head Large Press Points Checked Yes By Waylon MAGIURE, Shaquille Waters Jr DO, Robi Lindsey, Bhavya López RN Outcomes Met? Yes Last Modified By: Bhavya López RN 10/05/17 13:04:04 Post-Care Text: The patient is free from signs and symptoms of injury related to positioning Patient Care Devices FT Pre-Care Text: Implements protective measures to prevent skin/ tissue injury due to thermal or mechanical sources Entry 1 Entry 2 Equipment Type ENDOSCOPY VIDEO MONITOR CHARGE SURGERY SYSTEM[F] [F] Equipment Number [id number] Equipment Setting Outcomes Met? Yes Yes Last Modified By: Bhavya López RN, RN, Trisha A 10/05/17 13:04:22 10/05/17 13:04:22 Post-Care Text: The patient is free from signs and symptoms of injury caused by extraneous objects Transport To OR FT Pre-Care Text: Transports according to individual needs. Evaluates for signs and symptoms of skin and tissue injury as a result of transfer or transport Entry 1 Via Cart By Lila Connors RN Safety Precautions Side Rails Up Outcomes Met? Yes Last Modified By: Bhavya López RN 10/05/17 13:04:28 Post-Care Text: The patient is free from signs and symptoms of injury related to transfer/transport Departure From OR FT Pre-Care Text: Transports according to individual needs. Evaluates for signs and symptoms of skin and tissue injury as a result of transfer or transport. Entry 1 Via Cart Safety Precautions Side Rails Up PostOp Destination PACU Transported By Lila Connors RN Patient Status Stable Skin. Condition Intact, Lindsey, Warm, and Dry Airway Maintenance Oxygen in Use? No Airway Device N/A Outcomes Met? Yes Last Modified By: Bhavya López RN 10/05/17 13:04:49 Post-Care Text: The patient is free from signs and symptoms of injury related to transfer/transport General Comments: Report given to PACU,RN/NISH,manager of sales Administration FT Pre-Care Text: Verifies allergies, administers prescribed medications and solutions, administers prescribed antibiotic therapy and immunizing agents as ordered, evaluates response to medications Administers prescribed medications and solutions Entry 1 Expiration Date Yes Outcomes Met? Yes Verified Last Modified By: Bhavya López RN 10/05/17 13:04:58 Post-Care Text: The patient received appropriate medication(s) safely administered during the perioperative period For [place] please see scanned medication reconcilliation form for medications used at the field during the procedure. Cultures and Specimens FT Pre-Care Text: Manages specimen handling and disposition Manages culture specimen collection Entry 1 Cultures Ordered n/a Specimens Ordered Yes Specimen Disposition Designated OR Area Frozen Section Times Outcomes Met? Yes Last Modified By: Bhavya López RN 10/05/17 15:19:03 Post-Care Text: The patient is free from signs and symptoms of injury caused by extraneous objects The patient is free from signs and symptoms of infection Case Comments Finalized By: Irena Mccauley CST Document Signatures Signed By: Bhavya López RN 10/05/17 15:23 Irnea Mccauley CST 10/06/17 10:10 Normal [facility] Auto Diffon 10-05-2017 Basophils Auto #/vol (Bld) 1.1 % Normal 0.0-2.0 [facility] Comment on above: Order Comment: Order Added by Discern Expert. Performed By: #### 2 886075, 5406204, 62455520, 4761274, 2332833, 03677751, 4094525, 5085717, 22327010, 25193860 ####[facility] [address] [place] [address] Basophils/Leukocyt es Auto Pure number fraction (Bld) 0.0 E9/L Normal 0.0-0.2 [facility] Comment on above: Order Comment: Order Added by Discern Expert. Performed By: #### 2 736958, 9135996, 49688971, 6291829, 8911511, 34297972, 2778141, 9740507, 20360897, 11870521 ####[facility] [address] [place] [address] Eosinophils/100 WBC Auto (Bld) 2.2 % Normal 0.0-8.0 [facility] Comment on above: Order Comment: Order Added by Discern Expert. Performed By: #### 2 299838, 8471393, 78801122, 0520969, 4618568, 77219099, 3308128, 5780693, 86176006, 17721248 ####[facility] [address] [place] [address] Eosinophils/Leukoc ytes Auto Pure number fraction (Bld) 0.1 E9/L Normal 0.0-0.5 [facility] Comment on above: Order Comment: Order Added by Discern Expert. Performed By: #### 2 327996, 4556476, 67702218, 6499209, 0312473, 21184531, 9548489, 9666569, 91907024, 84288051 ####[facility] [address] [place] [address] Lymphocytes/100 WBC Auto (Bld) 22.6 % Normal 14.0-50.0 [facility] Comment on above: Order Comment: Order Added by Discern Expert. Performed By: #### 2 714133, 4371205, 20514380, 4136144, 1813953, 63021636, 8483222, 9540216, 00714434, 99260659 ####[place] [address] [place] [address] Lymphocytes/Leukoc ytes Auto Pure number fraction (Bld) 0.8 E9/L Low 1.0-4.0 [facility] Comment on above: Order Comment: Order Added by Discern Expert. Performed By: #### 2 803743, 6991205, 05891336, 5722568, 1918932, 84419327, 7732449, 9962230, 53945330, 85930907 ####[address] [address] Monocytes/100 WBC Auto (Bld) 8.6 % Normal 4.0-14.0 [facility] Comment on above: Order Comment: Order Added by Discern Expert. Performed By: #### 2 567264, 9101267, 76346658, 1466780, 9788629, 38700894, 5373127, 4371477, 72504244, 64721429 ####[address] [address] Monocytes/Leukocyt es Auto Pure number fraction (Bld) 0.3 E9/L Normal 0.2-1.0 [facility] Comment on above: Order Comment: Order Added by Discern Expert. Performed By: #### 2 233470, 0202239, 48860455, 6619320, 8941940, 45652277, 9499929, 4261532, 72268615, 71760455 ####[address] [place] [address] Neutrophils/100 WBC Auto (Bld) 65.5 % Normal 36.0-75.0 [facility] Comment on above: Order Comment: Order Added by Discern Expert. Performed By: #### 2 226563, 7693646, 51685194, 2896317, 9257383, 34552682, 7049147, 4871380, 95957778, 18881576 ####[facility] [address] [place] [address] Neutrophils/Leukoc ytes Auto Pure number fraction (Bld) 2.2 E9/L Normal 2.0-7.5 [facility] Comment on above: Order Comment: Order Added by Discern Expert. Performed By: #### 2 831369, 0834490, 72663129, 9966761, 7580470, 46574853, 9967141, 1515154, 19215434, 23225814 ####[facility] [address] [place] [address] Basophils Auto #/vol (Bld) 0.9 % Normal 0.0-2.0 [facility] Comment on above: Order Comment: Order Added by Discern Expert. Performed By: #### 2 594590, 3107815, 72260407, 6698913, 3083166, 07363636, 1323298, 1323588, 93238159, 93299272 ####[facility] [address] [place] [address] Basophils/Leukocyt es Auto Pure number fraction (Bld) 0.0 E9/L Normal 0.0-0.2 [facility] Comment on above: Order Comment: Order Added by Discern Expert. Performed By: #### 2 870652, 6184249, 13217057, 4606763, 9835100, 49877304, 9520742, 2411837, 61876962, 00604568 ####[facility] [address] [place] [address] Eosinophils/100 WBC Auto (Bld) 1.9 % Normal 0.0-8.0 [facility] Comment on above: Order Comment: Order Added by Discern Expert. Performed By: #### 2 574945, 0641020, 52348870, 7563396, 1679673, 34555685, 7590953, 0746733, 67975547, 44839262 ####[address] [place] [address] Eosinophils/Leukoc ytes Auto Pure number fraction (Bld) 0.1 E9/L Normal 0.0-0.5 [facility] Comment on above: Order Comment: Order Added by Discern Expert. Performed By: #### 2 663794, 7727697, 97520856, 3651840, 7388078, 71234625, 3540702, 3694656, 82467223, 23289803 ####[address] [place] [address] Lymphocytes/100 WBC Auto (Bld) 19.5 % Normal 14.0-50.0 [facility] Comment on above: Order Comment: Order Added by Discern Expert. Performed By: #### 2 093020, 8571854, 06511542, 5736873, 9236861, 91886786, 5746868, 2110812, 58574583, 33379797 ####[address] [address] Lymphocytes/Leukoc ytes Auto Pure number fraction (Bld) 1.0 E9/L Normal 1.0-4.0 [facility] Comment on above: Order Comment: Order Added by Discern Expert. Performed By: #### 2 021465, 9831054, 16385714, 1753698, 2170861, 37202175, 9059597, 7714646, 37120268, 18112460 ####[address] [place] [address] Monocytes/100 WBC Auto (Bld) 7.8 % Normal 4.0-14.0 [facility] Comment on above: Order Comment: Order Added by Discern Expert. Performed By: #### 2 364480, 2725145, 05869102, 9932621, 9965817, 42211702, 9040877, 0790483, 75894497, 26008681 ####[address] [place] [address] Monocytes/Leukocyt es Auto Pure number fraction (Bld) 0.4 E9/L Normal 0.2-1.0 [facility] Comment on above: Order Comment: Order Added by Discern Expert. Performed By: #### 2 969225, 0444605, 64148113, 4600119, 3894434, 87539106, 2814642, 5359025, 50827639, 60137265 ####[facility] [address] [place] [address] Neutrophils/100 WBC Auto (Bld) 69.9 % Normal 36.0-75.0 [facility] Comment on above: Order Comment: Order Added by Discern Expert. Performed By: #### 2 271394, 7146087, 89449845, 0784440, 1020481, 36373566, 7289043, 0285684, 22696298, 71285149 ####[address] [place] [address] Neutrophils/Leukoc ytes Auto Pure number fraction (Bld) 3.6 E9/L Normal 2.0-7.5 [facility] Comment on above: Order Comment: Order Added by Discern Expert. Performed By: #### 2 556689, 2605344, 47336197, 3784204, 8786305, 31600741, 0949540, 3979160, 82044110, 00305263 ####[facility] [address] [place] [address] BMPon 10-05-2017 Creatinine mass conc 0.6 mg/dL Normal 0.5-1.3 [facility] Comment on above: Performed By: #### 2 123124, 0037068, 26964078, 3632552, 3647153, 05822270, 2367728, 6560292, 66485785, 21450952 ####[facility] [address] [place] [address] Urea nitrogen mass conc 6 mg/dL Normal 5-21 [facility] Comment on above: Performed By: #### 2 639502, 1222197, 44998423, 1523327, 6698574, 12086663, 2853963, 7597694, 57670581, 90413075 ####[facility] [address] [place] [address] Urea nitrogen/Creatinin e mass ratio 10 No Units Normal 10-20 [facility] Comment on above: Performed By: #### 2 261139, 6448000, 11645801, 6871268, 0954018, 83560042, 2428208, 0513784, 69306895, 11719988 ####[facility] [address] [place] [address] Anion gap 3 molar conc 8 mmol/L Normal 6-16 [facility] Comment on above: Performed By: #### 2 946545, 5092154, 47021714, 0097107, 6188369, 19898347, 1668161, 5351944, 82762005, 26495299 ####[facility] [address] [place] [address] Calcium mass conc 7.7 mg/dL Low 8.9-11.1 [facility] Comment on above: Performed By: #### 2 915882, 7862480, 17290983, 9405400, 0647286, 17522731, 4838444, 5675009, 48109897, 00521693 ####[facility] [address] [place] [address] Chloride molar conc 107 mmol/L Normal 101-111 [facility] Comment on above: Performed By: #### 2 554245, 6703873, 81209281, 3467007, 6736645, 35564480, 7112014, 7930284, 99073405, 87162247 ####[facility] [address] [place] [address] CO2 molar conc 26 mmol/L Normal 21-31 [facility] Comment on above: Performed By: #### 2 091163, 7745262, 54562310, 7962974, 8817460, 93119044, 7025503, 2148974, 50466184, 88805158 ####[facility] [address] [place] [address] Glucose mass conc 78 mg/dL Normal 55-199 [facility] Comment on above: Result Comment: If t his glucose result represents a fasting glucose, interpretation should refer to the following reference range: 55-99 mg/dL Performed By: #### 2 759074, 1052914, 37685377, 8144376, 7859525, 76501272, 6763363, 3938525, 84138981, 07746138 ####[facility] [address] [place] [address] Potassium molar conc 3.6 mmol/L Normal 3.5-5.3 [facility] Comment on above: Performed By: #### 2 310926, 7226985, 69451090, 5280247, 0697668, 00209746, 8092371, 2493023, 94037546, 44220783 ####[facility] [address] [place] [address] Sodium molar conc 137 mmol/L Normal 135-145 [facility] Comment on above: Performed By: #### 2 126081, 0923950, 52145925, 6376571, 0663852, 30484775, 3698075, 9422709, 38809798, 85347838 ####[facility] [address] [place] [address] Creatinine mass conc 0.7 mg/dL Normal 0.5-1.3 [facility] Comment on above: Performed By: #### 2 797356, 6131090, 61881015, 7212475, 3729330, 02956067, 7039479, 5263658, 42268327, 31742218 ####[facility] [address] [place] [address] Urea nitrogen mass conc 7 mg/dL Normal 5-21 [facility] Comment on above: Performed By: #### 2 397731, 5137629, 03645317, 0185582, 4608312, 26399033, 0658219, 4429486, 68941308, 91914441 ####[facility] [address] [place] [address] Urea nitrogen/Creatinin e mass ratio 10 No Units Normal 10-20 [facility] Comment on above: Performed By: #### 2 479615, 1534356, 53037002, 8618513, 5725951, 30752901, 8033118, 4936487, 06988712, 48985825 ####[facility] [address] [place] [address] BNPon 10-05-2017 Natriuretic peptide B mass conc (Bld) 19 pg/mL Normal 5-80 [facility] Comment on above: Performed By: #### 2 296965, 9503992, 18541897, 4095201, 3755859, 59148573, 4289814, 7617608, 25139107, 97310829 ####[address] [place] [address] Natriuretic peptide B mass conc (Bld) Pass Normal [facility] Comment on above: Performed By: #### 2 003905, 3978571, 25101897, 6325485, 4604454, 05733382, 8421363, 1050867, 69676741, 55956770 ####[facility] [address] [place] [address] CBC w/ Auto Diffon 8 Erythrocyte distribution width Auto Ratio (RBC) 12.9 % Normal 10.9-14.2 [facility] Comment on above: Performed By: #### 2 211558, 7071647, 05146741, 5530384, 9731919, 57034398, 4468302, 8053023, 79728748, 30858427 ####[address] [place] [address] Hematocrit Auto Volume Fraction (Bld) 31.3 % Low 34.0-46.0 [facility] Comment on above: Result Comment: Resu lts Verified By Repeat Analysis Performed By: #### 2 588005, 3559102, 20143412, 4298577, 7637901, 04438823, 1585749, 3704394, 51633009, 02874560 ####[facility] [address] [place] [id number] Hemoglobin mass conc (Bld) 11.2 g/dL Low 12.0-16.0 [facility] Comment on above: Result Comment: Resu lts Verified By Repeat Analysis Performed By: #### 2 752357, 3155403, 71480092, 3330739, 2606088, 34706693, 8371875, 0657332, 49010062, 65728164 ####[facility] [address] [place] [address] MCH Auto Entitic mass (RBC) 30.6 pg Normal 27.0-34.0 [facility] Comment on above: Performed By: #### 2 163357, 1572098, 69615748, 2626344, 6312581, 78303871, 8403359, 1985214, 67648647, 33091033 ####[facility] [address] [place], [place] [address] MCHC Auto mass conc (RBC) 35.8 g/dL Normal 31.4-39.3 [facility] Comment on above: Performed By: #### 2 385448, 7525614, 92731737, 8422062, 8729528, 93194027, 4248150, 3229262, 85573096, 46584665 ####[facility] [address] [place] [address] MCV Auto Entitic volume (RBC) 85.6 fL Normal 80.0-100.0 [facility] Comment on above: Performed By: #### 2 684775, 8622044, 56479691, 0234678, 1833624, 78413199, 1151710, 4717964, 08683031, 54241643 ####[place] [address] [place] [address] Platelet mean volume Auto Entitic volume (Bld) 8.9 fL Normal 6.4-10.8 [facility] Comment on above: Performed By: #### 2 015991, 5456191, 34415239, 4432095, 6205464, 41820608, 5675610, 4755150, 31415680, 92778366 ####[facility] [address] [place] [address] Platelets Auto #/vol (Bld) 146.0 E9/L Low 150.0-500. 0 [facility] Comment on above: Performed By: #### 2 968147, 6787303, 41359563, 2500814, 4165233, 63441672, 0556727, 0811283, 43097562, 99802453 ####[place] [address] RBC Auto #/vol (Bld) 3.7 E12/L Low 4.3-5.9 [facility] Comment on above: Performed By: #### 2 234706, 0866163, 94278471, 0173713, 8211378, 33897938, 3789854, 4592710, 13721447, 54085504 ####[place] [address] WBC corrected for nucl RBC Auto #/vol (Bld) 3.3 E9/L Low 4.0-11.0 [facility] Comment on above: Performed By: #### 2 149191, 2489157, 16147656, 2042289, 3065382, 60463519, 8906219, 0165898, 26809361, 28787850 ####[place] [address] [place] [address]157 Erythrocyte distribution width Auto Ratio (RBC) 13.1 % Normal 10.9-14.2 [facility] Comment on above: Performed By: #### 2 297730, 7675114, 36554172, 1960395, 1154029, 00606912, 7313975, 7781726, 58405555, 06195864 ####[place] [address] Hematocrit Auto Volume Fraction (Bld) 37.3 % Normal 34.0-46.0 [facility] Comment on above: Performed By: #### 2 995031, 9522331, 45643309, 3180059, 4262192, 00012442, 9988570, 6549817, 26904155, 66233223 ####[facility] [address] [place] [address] Hemoglobin mass conc (Bld) 13.2 g/dL Normal 12.0-16.0 [facility] Comment on above: Performed By: #### 2 745327, 4720212, 61435778, 1563824, 6185243, 85799426, 6265634, 4486122, 17890884, 76686438 ####[place] [address] MCH Auto Entitic mass (RBC) 30.3 pg Normal 27.0-34.0 [facility] Comment on above: Performed By: #### 2 572856, 0640483, 05311743, 3158196, 6532681, 24239681, 7265648, 9859257, 76830666, 22261517 ####[place] [address]257 MCHC Auto mass conc (RBC) 35.5 g/dL Normal 31.4-39.3 [facility] Comment on above: Performed By: #### 2 780207, 1602435, 71419971, 4359224, 2442111, 27776485, 0717436, 9641066, 91601307, 65893412 ####[place] [address] [place] [address] MCV Auto Entitic volume (RBC) 85.4 fL Normal 80.0-100.0 [facility] Comment on above: Performed By: #### 2 271392, 8512986, 05176955, 5486566, 2971039, 22940772, 4800906, 6784335, 98430417, 42052125 ####[address] [place] [address] Platelet mean volume Auto Entitic volume (Bld) 9.1 fL Normal 6.4-10.8 [facility] Comment on above: Performed By: #### 2 073980, 3449072, 85675316, 0091647, 9497761, 72605390, 4212257, 6150555, 77936732, 66449252 ####[facility] [address] [place] [address] Platelets Auto #/vol (Bld) 183.0 E9/L Normal 150.0-500. 0 [facility] Comment on above: Performed By: #### 2 629236, 8452643, 18862204, 3377590, 3633433, 07407798, 5289826, 4011471, 66824002, 62797084 ####[address] [address] RBC Auto #/vol (Bld) 4.4 E12/L Normal 4.3-5.9 [facility] Comment on above: Performed By: #### 2 210189, 0479616, 75880601, 4000037, 5728947, 58063009, 6932233, 8901919, 22217876, 63139726 ####[place] [address] [place] [address] WBC corrected for nucl RBC Auto #/vol (Bld) 5.1 E9/L Normal 4.0-11.0 [facility] Comment on above: Performed By: #### 2 122122, 2158765, 79986264, 8204225, 9267379, 73112514, 6498147, 5437660, 18304553, 99521340 ####[address] [address] CTA Abdomen and Pelvison CTA Abdomen and Pelvis Exam Date/Time:10/04/2017 22:47 EDTReason for Exam:Aortic dissectionReportPLEASE REFER TO THE CTA CHEST REPORT.All CT scans at this facility use dose modulation, iterative reconstruction, and/orweight based dosing when appropriate to reduce radiation dose to as low as reasonablyachievable. FINAL REPORT Dictated: 10/05/2017 8:[address] M.D. Signed (Electronic Signature): 10/05/2017 8:18 am Signed by: Yaw Lane M.D. Transcribed by: SOLOMON Technologist: RRBTechnical CommentsGFR (mL/min/1/73m2) >60Contrast: Isovue 370Contrast amount in ml's: 100 Normal [facility] Cardiac 0 Hr.on 10-05-2017 CREATINE KINASE.MB:CCNC:PT: SER/PLAS:QN:EIA 2.2 ng/mL Normal 0.3-4.9 [facility] Comment on above: Performed By: #### 2 804013, 1157300, 90185967, 6280919, 2605801, 53530510, 9271446, 6718365, 79656822, 10393490 ####[facility] [address] [place] [address] Myoglobin mass conc 24 ng/mL Normal <=69 [facility] Comment on above: Performed By: #### 2 926423, 5812620, 05615296, 5265108, 6495569, 91065520, 5243690, 9299291, 50614236, 70193160 ####[facility] [address] [place] [address] Troponin I.cardiac mass conc ng/mL Normal <=0.03 [facility] Comment on above: Result Comment: New Troponin Assay 11/02/13ROC CA Cutoff value > or = 0.03 ng/mL in conjunction with clinical conditions of myocardial infarction.([email or web address]) Performed By: #### 2 449552, 4658228, 04095053, 5948205, 1157299, 75862924, 1758458, 7124214, 74631332, 85916659 ####[facility] [address] [place] [address] CK enzyme act/vol 166 Int._Unit/L Normal 14-261 [facility] Comment on above: Performed By: #### 2 568580, 0831876, 59030910, 9399677, 4074581, 39163777, 1149867, 3756492, 68076106, 16022583 ####[facility] [address] [place] [address] Cardiac 3 Hr.on 10-05-2017 CREATINE KINASE.MB:CCNC:PT: SER/PLAS:QN:EIA 1.8 ng/mL Normal 0.3-4.9 [facility] Comment on above: Performed By: #### 2 310918, 9325860, 18821023, 6923393, 3699727, 01751877, 8935289, 8370164, 91367380, 43861913 ####[facility] [address] [place] [address] Myoglobin mass conc 17 ng/mL Normal <=69 [facility] Comment on above: Performed By: #### 2 015888, 8152890, 01158652, 2535788, 6440840, 05764606, 8315951, 7807376, 45730569, 59496207 ####[facility] [address] [place] [address] Troponin I.cardiac mass conc ng/mL Normal <=0.03 [facility] Comment on above: Result Comment: New Troponin Assay 11/02/13ROC CA Cutoff value > or = 0.03 ng/mL in conjunction with clinical conditions of myocardial infarction.([email or web address]/guidelines) Performed By: #### 2 710834, 4712102, 35764058, 8638942, 7699961, 86467393, 4445708, 4850596, 40771314, 83534002 ####[facility] [address] [place] [address] CK enzyme act/vol 145 Int._Unit/L Normal 14-261 [facility] Comment on above: Performed By: #### 2 468658, 8367543, 38321136, 0168411, 7179225, 60804381, 4656120, 6239206, 63439676, 43166886 ####[facility] [address] [place] [address] Cardiac 6 Hr.on 10-05-2017 CREATINE KINASE.MB:CCNC:PT: SER/PLAS:QN:EIA 1.7 ng/mL Normal 0.3-4.9 [facility] Comment on above: Performed By: #### 2 950320, 6131185, 24158654, 2301597, 3370176, 99430675, 1236606, 9635596, 74403129, 49475845 ####[facility] [address] [place] [address] Troponin I.cardiac mass conc ng/mL Normal <=0.03 [facility] Comment on above: Result Comment: New Troponin Assay 11/02/13ROC CA Cutoff value > or = 0.03 ng/mL in conjunction with clinical conditions of myocardial infarction.([email or web address]/guidelines) Performed By: #### 2 141556, 2134302, 12618163, 2170554, 0273898, 98537973, 1138256, 6528227, 69781899, 51756551 ####[facility] [address] [place] [address] CK enzyme act/vol 129 Int._Unit/L Normal [facility] Comment on above: Performed By: #### 2 388943, 2230759, 57659736, 7485048, 2243259, 82211188, 9130857, 4267415, 58109800, 01770258 ####[facility] [address] [place] [address] Cardiac 9 Hr.on 10-05-2017 CK enzyme act/vol 121 Int._Unit/L Normal 261 [facility] Comment on above: Performed By: #### 2 077461, 7696104, 68972054, 4071326, 5145309, 14231737, 7963792, 3794017, 51471827, 88095524 ####[facility] [address] [place] [address] Troponin I.cardiac mass conc ng/mL Normal <=0.03 [facility] Comment on above: Result Comment: New Troponin Assay 11/02/13ROC CA Cutoff value > or = 0.03 ng/mL in conjunction with clinical conditions of myocardial infarction.([email or web address]/guidelines) Performed By: #### 2 008366, 6439783, 03350845, 9105458, 0647796, 86553673, 3244215, 4238304, 06609392, 31683545 ####[facility] [address] [place] [address] Consultation Noteon 10-06-19 Consultation Note Patient: Trudy RIOS Age: 37 years Sex: Female : 1980 Associated Diagnoses: None Author: Madeline Goodman MD, Aguilar Basic Information Time Seen: Date & Time 10/05/17 12:15:00. Admit information: Chest pain and nausea . Source of history: Medical record, Patient. History limitation: None. 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 Currently symptom-free. She was mostly Tylenol for pain and very occasionally aspirin as needed. He was seen by cardiology and no further cardiac workup was recommended.She denies vomiting, black stool, blood in the stool. Review of Systems as in the HPI otherwise negative Health Status Allergies: Allergic Reactions (All)Severity Not DocumentedAmoxicillin- Rash.Bactrim- Rash.Mefoxin- Rash., Allergies (3) Active Reactionamoxicillin RashBactrim RashMefoxin Rash Current medications: (Selected) Inpatient MedicationsOrderedCoreg 25 mg Tab: 25 mg = 1 tab(s), Tab, Oral, Daily, Routine, Start date 10/05/17 9:00:00 EDTD5/0.45% NaCl w/20 KCl 1000 mL Soln-IV 1,000 mL: 1,000 mL, IV, 50 mL/hr, Routine, Start date 10/05/17 4:18:00 EDT, 20 hour(s), Total volume (mL): 1,000Phenergan 25 mg/mL Injection: 12.5 mg = 0.5 mL, Injection, IV Push, q6hr PRN Nausea, Routine, Start date 10/05/17 4:18:00 EDTZofran 4 mg/2 mL Injection: 4 mg = 2 mL, Injection, IV Push, q6hr PRN Nausea, Routine, Start date 10/05/17 4:18:00 EDTclonazepam 1 mg Tab: 1 mg = 1 tab(s), Tab, Oral, TID PRN Anxiety, Routine, Start date 10/05/17 4:30:00 EDTheparin 5000 units/mL Inj: 5,000 unit(s) = 1 mL, Injection, SubCutaneous, BID, Routine, Start date 10/05/17 9:00:00 EDTnicotine 7 mg/24 hr Transderm ER Film: 7 mg, 1 patch(es), Patch-ER, TransDermal, Daily, Routine, Start date 10/05/17 4:29:00 EDTpantoprazole 40 mg IV Inj: 40 mg = 10 mL, Injection, IV Push, Daily, Routine, Start date 10/06/17 9:00:00 EDTvenlafaxine: 75 mg = 2 tab(s), Tab, Oral, Daily, Routine, Start date 10/05/17 9:00:00 EDTDocumented MedicationsDocumentedCoreg 25 mg Tab: 25 mg = 1 tab(s), Oral, Daily, Refills(s) 0Lasix 20 mg Tab: 20 mg = 1 tab(s), Oral, BID, Refills(s) 0clonazepam 1 mg Tab: 1 mg = 1 tab(s), Oral, TID, PRN Anxiety, Refills(s) 0venlafaxine 75 mg Tab: 75 mg = 1 tab(s), Oral, Daily, Refills(s) 0 Problem list: All ProblemsCardiomyopathy / SNOMED CT 334146485 / ConfirmedCHF - Congestive heart failure / SNOMED CT 032860640 / ConfirmedPulmonary embolism / SNOMED CT 02750951 / ConfirmedSmoker / SNOMED CT 685166347 / ConfirmedAdded secondary to documentation in Social History. Histories Past Medical History: ActivePulmonary embolism (10268142): Onset in 2008 at 28 years.CHF - Congestive heart failure (179760356)Cardiomyopathy (299825897) Family History: DementiaFatherAsthmaMotherSiste rHypertensionMotherFatherClotti ng disorderFatherDiabetes mellitus type 2MotherStrokeFatherMotherAcute myocardial infarctionMotherHyperlipidemiaM otherRenal failure syndromeMotherSleep apneaMotherDepressionMotherSist er Procedure history: Implantation of automatic cardioverter/defibrillator, total system (AICD) (17514343) in 2008 at 28 Years.Cardiac pacemaker (66694551) in 2008 at 28 Years.Cholecystectomy (65003677).Gastric bypass (8773678297).Abdominal hysterectomy (574670221). delivery (4358134380).Comments:10/05/2017 02:40 - Claudia Lu RN L3hand surgery.Comments:10/05/2017 02:42 - Claudia Lu RN L2 surgeries left handExcision of tonsil (425825926). Social History Social & Psychosocial EdzuqdLfscctd44/16/2018 Risk Assessment: Denies Alcohol Use10/04/2017 Use: Current Comment: denies - 10/04/2017 22:00 - Isabel Bird RN RSubstance Abuse10/04/2017 Risk Assessment: Denies Substance SartrFiypwko48/16/2018 Tobacco Use: 10 or more cigarettes (06/24/1510/04/2017 Risk Assessment: High Risk. Physical Examination Vital Signs 10/05/2017 11:51 EDT Hourly Rounding Yes 10/05/2017 11:44 EDT Temperature Oral 36.8 DegC Heart Rate Monitored 59 bpm LOW Respiratory Rate 16 br/min Systolic Blood Pressure 115 mmHg Diastolic Blood Pressure 72 mmHg Mean Arterial Pressure, Monitered 86 mmHg SpO2 97 % 10/05/2017 10:40 EDT Hourly Rounding Yes 10/05/2017 10:19 EDT Hourly Rounding Yes 10/05/2017 09:00 EDT Hourly Rounding Yes 10/05/2017 08:14 EDT SpO2 99 % 10/05/2017 08:00 EDT Hourly Rounding Yes Promise to Return Yes 10/05/2017 07:00 EDT Hourly Rounding Yes Promise to Return Yes 10/05/2017 06:00 EDT Temperature Oral 36.5 DegC Heart Rate Monitored 60 bpm Respiratory Rate 20 br/min Systolic Blood Pressure 107 mmHg Diastolic Blood Pressure 69 mmHg Hourly Rounding Yes Promise to Return Yes SpO2 98 % 10/05/2017 04:00 EDT Hourly Rounding Yes 10/05/2017 02:11 EDT Temperature Oral 36.5 DegC Peripheral Pulse Rate 59 bpm LOW Respiratory Rate 18 br/min Systolic Blood Pressure 147 mmHg HI Diastolic Blood Pressure 96 mmHg HI SpO2 100 % 10/05/2017 02:00 EDT Hourly Rounding Yes 10/05/2017 00:56 EDT Heart Rate Monitored 60 bpm Respiratory Rate Monitored 14 br/min Systolic Blood Pressure 112 mmHg Diastolic Blood Pressure 75 mmHg Mean Arterial Pressure, Cuff 87 mmHg SpO2 98 % 10/04/2017 23:04 EDT Heart Rate Monitored 60 bpm Respiratory Rate Monitored 17 br/min Systolic Blood Pressure 135 mmHg Diastolic Blood Pressure 66 mmHg Mean Arterial Pressure, Cuff 89 mmHg SpO2 98 % 10/04/2017 22:10 EDT Heart Rate Monitored 67 bpm Respiratory Rate Monitored 21 br/min Systolic Blood Pressure 120 mmHg Diastolic Blood Pressure 60 mmHg Mean Arterial Pressure, Cuff 80 mmHg SpO2 97 % 10/04/2017 21:17 EDT Temperature Oral 36.6 DegC Peripheral Pulse Rate 61 bpm Respiratory Rate 20 br/min Systolic Blood Pressure 151 mmHg HI Diastolic Blood Pressure 76 mmHg Blood Pressure Location Right arm Mean Arterial Pressure, Cuff 101 mmHg SpO2 100 % Vitals Signs (last 24 hrs) Last Charted Minimum MaximumTemp 36.8 (OCT 05 11:44) 36.5 (OCT 05 02:11) 36.8 (OCT 05 11:44)Heart Rate L 59 (OCT 05 11:44) L 59 (OCT 05 02:11) 67 (OCT 04 22:10)Resp Rate 16 (OCT 05 11:44) 14 (OCT 05 00:56) 21 (OCT 04 22:10)SBP 115 (OCT 05 11:44) 107 (OCT 05 06:00) H 151 (OCT 04 21:17)DBP 72 (OCT 05 11:44) 60 (OCT 04 22:10) H 96 (OCT 05 02:11)MAP 86 (OCT 05 11:44) 80 (OCT 04 22:10) 101 (OCT 04 21:17)SpO2 97 (OCT 05 11:44) 97 (OCT 04 22:10) 100 (OCT 04:17) Measurements from flowsheet : Measurements 10/05/2017 06:35 EDT Weight Measured 91.5 kg 10/05/2017 02:26 EDT Height/Length Measured 174 cm Body Mass Index Measured 30.19 kg/m2 Weight Measured 91.4 kg 10/05/2017 02:11 EDT Height/Length Measured 174 cm [place] Body Weight Calculated 65.059 kg BSA Measured 2.1 m2 Body Mass Index Measured 30.19 kg/m2 Weight Measured 91.4 kg 10/04/2017 21:17 EDT Height/Length Measured 175 cm Body Mass Index Measured 30.04 kg/m2 Weight Measured 92.0 kg General: Alert and oriented, No acute distress. Eye: Pupils are equal, round and reactive to light, Extraocular movements are intact. HENT: Normocephalic, Normal hearing. Neck: Non-tender. Respiratory: Lungs are clear to auscultation, Respirations are non-labored, Symmetrical chest wall expansion. Cardiovascular: Normal rate, Regular rhythm, No edema. Gastrointestinal: Soft, Non-tender, Non-distended, Normal bowel sounds. Genitourinary: Exam deferred. Lymphatics: No lymphadenopathy neck, axilla, groin. Musculoskeletal Normal range of motion. Normal strength. No tenderness. Integumentary: Warm. Neurologic: Alert, Oriented, No focal deficits. Cognition and Speech: Oriented, Speech clear and coherent. Psychiatric: Cooperative, Appropriate mood & affect. Review / Management Results review: Lab results 10/05/2017 06:39 EDT WBC 3.3 E9/L LOW RBC 3.7 E12/L LOW Hgb 11.2 gm/dL LOW Hct 31.3 % LOW MCV 85.6 fL MCH 30.6 pg MCHC 35.8 gm/dL RDW 12.9 % Platelet 146.0 E9/L LOW MPV 8.9 fL Neutro Auto 65.5 % Lymph Auto 22.6 % Kenton Auto 8.6 % Eos Auto 2.2 % Basophil Auto 1.1 % Neutro Absolute 2.2 E9/L Lymph Absolute 0.8 E9/L LOW [place] Absolute 0.3 E9/L Eos Absolute 0.1 E9/L Basophil Absolute 0.0 E9/L Sed Rate Automated 13 mm/hr Glucose Lvl 78 mg/dL BUN 6 mg/dL Creatinine 0.6 mg/dL eGFR >60 mL/min/1.73 m2 eGFR AA >60 mL/min/1.73 m2 BUN/Creat Ratio 10 Sodium Lvl 137 mmol/L Potassium Lvl 3.6 mmol/L Chloride 107 mmol/L CO2 26 mmol/L AGAP 8 mEq/L Calcium Lvl 7.7 mg/dL LOW Chol 100 mg/dL LOW Trig 51 mg/dL HDL 44 mg/dL NA LDL Direct 42 mg/dL VLDL 10 mg/dL TSH 3.23 mcIU/mL Troponin <0.03 ng/mL Total CK 121 Int._Unit/L 10/05/2017 03:18 EDT CK MB 1.7 ng/mL Troponin <0.03 ng/mL Total CK 129 Int._Unit/L 10/05/2017 00:17 EDT CK MB 1.8 ng/mL Myoglobin 17 ng/mL Troponin <0.03 ng/mL Total CK 145 Int._Unit/L 10/04/2017 21:40 EDT WBC 5.1 E9/L RBC 4.4 E12/L Hgb 13.2 gm/dL Hct 37.3 % MCV 85.4 fL MCH 30.3 pg MCHC 35.5 gm/dL RDW 13.1 % Platelet 183.0 E9/L MPV 9.1 fL Neutro Auto 69.9 % Lymph Auto 19.5 % Kenton Auto 7.8 % Eos Auto 1.9 % Basophil Auto 0.9 % Neutro Absolute 3.6 E9/L Lymph Absolute 1.0 E9/L [place] Absolute 0.4 E9/L Eos Absolute 0.1 E9/L Basophil Absolute 0.0 E9/L PT 11.5 second(s) INR 1.0 NA PTT 36.4 second(s) Glucose Lvl 99 mg/dL BUN 7 mg/dL Creatinine 0.7 mg/dL eGFR >60 mL/min/1.73 m2 eGFR AA >60 mL/min/1.73 m2 BUN/Creat Ratio 10 Sodium Lvl 137 mmol/L Potassium Lvl 3.3 mmol/L LOW Chloride 106 mmol/L CO2 24 mmol/L AGAP 10 mEq/L Calcium Lvl 8.5 mg/dL LOW Alk Phos 62 Int._Unit/L ALT 9 Int._Unit/L AST 21 Int._Unit/L Total Protein 6.5 gm/dL Albumin Lvl 3.8 gm/dL Globulin 2.7 gm/dL A/G Ratio 1.4 Bili Total 0.5 mg/dL Bili Direct <0.1 mg/dL Bili Indirect Unable to Calculate mg/dL Lipase Lvl 42 unit/L Magnesium 1.9 mg/dL CK MB 2.2 ng/mL Myoglobin 24 ng/mL Troponin <0.03 ng/mL Total CK 166 Int._Unit/L BNP 19 pg/mL . 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, EF 40 %, sleeve gastrectomy 2013 in [place] for obesity, PE in 2008 and anxietyChest pain/nausea: will proceed with EGD to rule out esophagitis/PUD, agree with PPISplenomegaly, on CT, normal liver, please refer for hematology evaluationThank you for the consult, please do not hesitate to call with any questions Normal [facility] Comment on above: Result Comment: Elec tronically Signed By: Madeline Goodman MD, Aguilar\.br\Date and Time Signed: 10/05/17 16:33 EDT Consultation Note HOSPITAL REGULATIONS : ALL Positive Important Negative Findings Shall Be Recorded.Date of 10/05/2017Consultation:Dedrick Pollard D.O.Physician:Consulting Luna SuarezDPhysician:CARDIOLOGY CONSULTATION NOTECHIEF COMPLAINT: Weakness.HISTORY OF PRESENT ILLNESS: This is a very pleasant 37 year old woman whofollows with Cardiology, Dr. Sanchez, [facility] with a history of severe left ventricular systolic dysfunction dueto viral cardiomyopathy, status post implantable cardioverterdefibrillator, tobacco history, who notes fatigue over the past severaldays. She also complained of chest pain that was 8/10 associated withnausea and light-headedness. She was brought to the Emergency Department.Electrocardiogram shows ventricular pacing. Blood pressure has been wellcontrolled. Serial cardiac enzymes times four were normal.REVIEW OF SYSTEMS: As per HISTORY OF PRESENT ILLNESS, otherwise normal.PAST MEDICAL HISTORY:1. Systolic heart failure, status post implantable cardioverterdefibrillator.2. Pulmonary embolism.3. Tobacco history.MEDICATIONS: Please see electronic medical record.ALLERGIES: Please see electronic medical record.FAMILY HISTORY: Non-contributory.PSYCHOSOCIAL HISTORY: Remarkable for tobacco and alcohol use.PHYSICAL EXAMINATION: Temperature 36.5, weight 91.5 kilograms, bloodpressure 107/69, heart rate 60, saturating 98% on room air.General: No acute distress, alert and oriented times three.Cardiac: Regular rate and rhythm, normal S1 and S2. No S3, no S4. Noedema.Pulmonary: Clear bilaterally.Abdomen: Soft, non-tender, non-distended. Positive normal active bowelsounds.Serial cardiac enzymes normal. Electrocardiogram - ventricular pacing.ASSESSMENT/PLAN: A very pleasant 37 year old woman with systolic heartfailure, status post implantable cardioverter defibrillator, pulmonaryembolism, tobacco history, presents with chest pain.1. Chest pain, very atypical. Ruled out for acute coronary syndrome. Herelectrocardiogram is ventricularly paced. blood pressure is wellcontrolled, no further cardiac work-up.2. Tobacco history, counseled regarding tobacco cessation.3. Systolic heart failure, euvolemic. Continue optimal medical therapy,reinforce low sodium diet.DISPOSITION: Okay to discharge today, and can follow up with Dr. Iniguez [facility].Jourdan SuarezDictated: 10/05/2017 #[id number]: 10/05/2017 #[id number]: Yovanny Pollard D.O.Eri Suarez M.D. [facility] Comment on above: Result Comment: Elec tronically Signed By: Daniela LEIJA, [facility], Ubaldo Figueroa\.br\Date and Time Signed: 10/05/17 09:09 EDT Discharge Note-Nursingon Discharge Note-Nursing discharge instructions reciewed with patient, who verbalized understanding and denied any questions. two prescriptions given to patient, and off work excuse also given to patient. tele removed. pt will put economic developer light when ride arrives and POCT to remove IV & wheel pt out. Normal [facility] ED Clinical Summaryon 2017 ED Clinical Summary [facility] [id number] ED Clinical SummaryPerson Information Name: Suzette RIOS/Sierra Age: 37 Years : 1980 12:00 AM Sex: Female Language:Omani PCP: ROCK DUNBAR MD Marital Status: Phone: [phone] Visit Id: Visit Reason:Dizziness; Chest pain; CHEST PAIN Speciality: Acuity: 2 Enc Type: Observation Med Service: Medical Arrival:10/04/2017 9:16 PM Discharge: LOS: 000 04:59 Checkin:10/04/2017 9:16 PM Checkout: 10/05/2017 2:15 AM Dispo Type: Admitted as IP to this [facility] EVENTS:Event Name Event Status Request Date/Time Start Date/Time Complete Date/Time Arrive Complete 10/04/2017 9:16 PM 10/04/2017 9:16 PM 10/04/2017 9:16 PM Document Home Meds Request 10/04/2017 9:16 PM Triage Complete 10/04/2017 9:16 PM 10/04/2017 9:23 PM 10/04/2017 9:23 PM EKG Complete 10/04/2017 9:19 PM 10/04/2017 9:24 PM Isolation Screening Request 10/04/2017 9:23 PM Bed Assign Complete 10/04/2017 9:25 PM 10/04/2017 9:25 PM 10/04/2017 9:[address] Exam Complete 10/04/2017 9:25 PM 10/04/2017 9:25 PM 10/04/2017 9:25 PM RN Exam Complete 10/04/2017 9:25 PM 10/04/2017 10:00 PM 10/04/2017 10:00 PM Registration Complete 10/04/2017 9:25 PM 10/04/2017 10:04 PM 10/04/2017 10:04 PM Meds Admin Request 10/04/2017 9:29 PM Pending Labs Request 10/04/2017 9:29 PM Lab Complete 10/04/2017 9:29 PM 10/04/2017 10:04 PM Patient Care Request 10/04/2017 9:29 PM RT Request 10/04/2017 9:29 PM X-Ray Cancel 10/04/2017 9:29 PM 10/04/2017 9:47 PM 10/04/2017 9:[address] Exam Complete 10/04/2017 9:41 PM 10/04/2017 9:41 PM 10/04/2017 9:41 PM Pending Labs Complete 10/04/2017 9:43 PM 10/04/2017 9:43 PM 10/04/2017 10:04 PM Lab Complete 10/04/2017 9:43 PM 10/04/2017 9:43 PM 10/04/2017 10:[address] Complete 10/04/2017 9:55 PM 10/04/2017 10:47 PM Pending Labs Cancel 10/04/2017 9:55 PM 10/04/2017 9:58 PM Lab Cancel 10/04/2017 9:55 PM 10/04/2017 9:58 PM Meds Admin Complete 10/04/2017 9:55 PM 10/04/2017 10:15 PM Pending Labs Complete 10/04/2017 9:58 PM 10/04/2017 9:58 PM 10/04/2017 10:32 PM Lab Complete 10/04/2017 9:58 PM 10/04/2017 9:58 PM 10/04/2017 10:32 PM Pending Labs Complete 10/04/2017 10:00 PM 10/04/2017 10:00 PM 10/04/2017 10:00 PM Lab Complete 10/04/2017 10:00 PM 10/04/2017 10:00 PM 10/04/2017 10:00 PM Reg Complete Request 10/04/2017 10:04 PM Reg Bed Request Complete 10/04/2017 10:04 PM 10/04/2017 10:04 PM 10/04/2017 10:04 PM Pending Labs Complete 10/04/2017 10:26 PM 10/04/2017 10:26 PM 10/04/2017 10:26 PM Meds Admin Complete 10/04/2017 10:51 PM 10/04/2017 11:04 PM Hospitalist Consult Request 10/05/2017 12:20 AM Meds Admin Complete 10/05/2017 12:20 AM 10/05/2017 12:57 AM Bed Request Request 10/05/2017 1:15 AM Reg Bed Request Complete 10/05/2017 1:15 AM 10/05/2017 1:52 AM 10/05/2017 1:52 AM Admit Request 10/05/2017 1:15 AM Patient Care Request 10/05/2017 1:52 AM Patient Care Request 10/05/2017 1:52 AM Patient Care Request 10/05/2017 1:54 AM Patient Care Request 10/05/2017 1:54 AM ADDRESS:[facility] [address] [facility] [id number] PHYS DOC NOTES: MEDICAL INFORMATION: Prescriptions Given:PATIENT EDUCATION INFORMATION: Instructions: Follow up:DIAGNOSIS:1:Chest pain; 2:Cardiomyopathy Normal [facility] ED Note-Physicianon 10-06-19 ED Note-Physician Basic Information Ti me Seen: Jada Echols DO 10/04/2017 21:41Chief Complaint Pt c/o left anterior chest pain through to the back since 7pm. Associated with SOB & dizziness, nausea, no diaphoresis. ASA 162mg PO @ 8pm. Pt states hx of CHF & Cardiomyopathy - has Pacemaker/AICD. Sees Dr. Sofia @ [facility].History of Present Illness Pt is a 37 -year-old female who presents with a sharp left sided chest pain that radiates into the back and also has lightheadedness, dizziness, and nausea. 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 Pt's cardiac history is significant for viral myocarditis, CHF, cardiomyopathy, and a pacemaker/AICD inserted in 2008. She denies any history of similar symptoms, recent travel, illness, or sick contacts. Pt smokes 1/2 to 1 ppd cigarettes and marijuana 1 time per week. Reviewed by Dr. Sanabria of Systems Constitutional: lightheaded, dizziness, nausea, tiredness for the past couple of days, no fever, no chills, no sweats, mild weakness Skin: no Jaundice, no rash, no lesions, nopetechiae ENMT: no ear pain, no sore throat, no congestion, no hoarseness Respiratory: no shortness of breath, no cough, no orthopnea, no wheezing Cardiovascular: severe left sided chest pain radiating to back, no palpitations, no edema Gastrointestinal: moderate nausea, no vomiting, no diarrhea, no GI bleeding Genitourinary: no dysuria, no hematuria, no discharge, no pain Musculoskeletal: no back pain, no trauma Neurologic: no headache, moderate dizziness, no numbness, moderate weakness Psychiatric: no sleeping problems, no irritability, no mood swings/depression. Heme/Lymph: no bleeding tendency, no bruising tendency, no petechiae, no swollen nodes Allergy/Immunologic: no seasonal allergies, no food allergies, no recurrent infections, no impaired immunity Additional ROS info: Except as noted in the above Review of Systems and in the History of Present Illness all other systems have been reviewed and are negative or noncontributory. Reviewed by Dr. EcholsPhysical Exam Vitals & Measurements T: 36.6 ?C (Oral) HR: 61(Peripheral) RR: 20 BP: 151/76 SpO2: 100% HT: 175 cm WT: 92.0 kg BMI: 30.04 General: cooperative and alert during exam Skin: warm, dry Head: no trauma, normocephalic Neck: Trachea midline, no adenopathy, no tenderness Eye: normal conjunctiva, sclera clear ENMT: TM's clear, oral mucosa moist, no pharyngeal erythema or exudate Cardiovascular: paced rhythm regular rate and rhythm, normal peripheral perfusion, no tenderness to palpation of chest Respiratory: Lungs CTA, respirations non labored Chest wall: no deformity, no tenderness Gastrointestinal: soft, non distended, no tenderness, no guarding. Back: No tenderness to palpation, Normal ROM, Normal alignment. Extremities: no deformity, no trauma Neurological: LOC appropriate for age, speech normal, awake alert and appropriate, no facial weakness Psychiatric: cooperative, affect appropriate for age, normal judgement, normal psychiatric thoughts.Medical Decision Making Nursing care was discussed with the hospitalist, Dr. Pollard. Patient will be admitted to the hospitalist for further observation and evaluation.Assessment/Plan 1. Chest pain 2. Cardiomyopathy Orders: Sodium Chloride 0.9% intravenous solution 1,000 mL, 1,000 mL, IV, 75 mL/hr, STAT, Start date 10/04/17 21:29:00 EDT, 13.3 hour(s), Total volume (mL): 1,000 Automated Diff B-Type Natriuretic Peptide Basic Metabolic Panel Cardiac 0 Hr. Cardiac 3 Hr. Cardiac 6 Hr. Cardiac 9 Hr. CBC w/ Auto Diff CTA Abdomen and Pelvis CTA Chest ED Cardiac Monitoring ED Physician consult Hospitalist for continued care eGFR Extra SST Tube Hepatic Function Panel Lipase Level Magnesium Level Oxygen Saturation Oxygen Therapy Place in Status PT & PTT Saline Lock InsertMedications Administered Given NS 500 ml Bolus 500 mL, 500 mL, IV Sodium Chloride 0.9% IV Luann 1000 mL 1,000 mL, 1000 mL, IV morphine 4 mg/mL Inj, 4 mg, IV Push morphine 4 mg/mL Inj, 4 mg, IV Push Zofran 4 mg/2 mL Injection, 4 mg, IV Push Zofran 4 mg/2 mL Injection, 4 mg, IV PushDisposition Plan Patient Discharge Condition Stable Discharge Disposition Admitted to telemetry, observation, hospitalistAttestation Patient was seen and evaluated with the medical student,Rena Henson, MS3. I personally saw and evaluated the patient. I personally performed the history, review of systems, physical examination, medical decision-making and supervision of care. The chart and diagnostics a been reviewed. Assessment and plan performed by Dr. Echols. Patient care discussed with the hospitalist, Dr. Pollard. Bridge orders written by Dr. Echols.Problem List/Past Medical History Ongoing Cardiomyopathy CHF - Congestive heart failure Pulmonary embolism Historical No qualifying dataProcedure/Surgical History Implantation of automatic cardioverter/defibrillator, total system (AICD) (2008).Medications Inpatient aspirin 81 mg Chew Tab, 162 mg= 2 tab(s), Oral, Once NS 500 ml Bolus 500 mL, 500 mL, IV Sodium Chloride 0.9% IV Luann 1000 mL 1,000 mL, 1000 mL, IV Home No active home medicationsAllergies Bactrim (Rash) Mefoxin (Rash) amoxicillin (Rash)Lab Results WBC: 5.1 E9/L (10/04/17 21:40:00) RBC: 4.4 E12/L (10/04/17 21:40:00) Hgb: 13.2 gm/dL (10/04/17 21:40:00) Hct: 37.3 % (10/04/17 21:40:00) MCV: 85.4 fL (10/04/17 21:40:00) MCH: 30.3 pg (10/04/17 21:40:00) MCHC: 35.5 gm/dL (10/04/17 21:40:00) RDW: 13.1 % (10/04/17 21:40:00) Platelet: 183 E9/L (10/04/17 21:40:00) MPV: 9.1 fL (10/04/17 21:40:00) Neutro Auto: 69.9 % (10/04/17 21:40:00) Lymph Auto: 19.5 % (10/04/17 21:40:00) Kenton Auto: 7.8 % (10/04/17 21:40:00) Eos Auto: 1.9 % (10/04/17 21:40:00) Basophil Auto: 0.9 % (10/04/17 21:40:00) Neutro Absolute: 3.6 E9/L (10/04/17 21:40:00) Lymph Absolute: 1 E9/L (10/04/17 21:40:00) Kenton Absolute: 0.4 E9/L (10/04/17 21:40:00) Eos Absolute: 0.1 E9/L (10/04/17 21:40:00) Basophil Absolute: 0 E9/L (10/04/17 21:40:00) PT: 11.5 second(s) (10/04/17 21:40:00) INR: 1 (10/04/17:40:00) PTT: 36.4 second(s) (10/04/17:40:00) Glucose Lvl: 99 mg/dL (10/04/17 21:40:00) BUN: 7 mg/dL (10/04/17 21:40:00) Creatinine: 0.7 mg/dL (10/04/17 21:40:00) eGFR: >60 (10/04/17 21:40:00) eGFR AA: >60 (10/04/17 21:40:00) BUN/Creat Ratio: 10 (10/04/17 21:40:00) Sodium Lvl: 137 mmol/L (10/04/17 21:40:00) Potassium Lvl: 3.3 mmol/L Low (10/04/17 21:40:00) Chloride: 106 mmol/L (10/04/17 21:40:00) CO2: 24 mmol/L (10/04/17 21:40:00) AGAP: 10 mEq/L (10/04/17:40:00) Calcium Lvl: 8.5 mg/dL Low (10/04/17:40:00) Alk Phos: 62 Int._Unit/L (10/04/17 21:40:00) ALT: 9 Int._Unit/L (10/04/17:40:00) AST: 21 Int._Unit/L (10/04/17:40:00) Total Protein: 6.5 gm/dL (10/04/17:40:00) Albumin Lvl: 3.8 gm/dL (10/04/17:40:00) Globulin: 2.7 gm/dL (10/04/17:40:00) A/G Ratio: 1.4 (10/04/17:40:00) Bili Total: 0.5 mg/dL (10/04/17:40:00) Bili Direct: <0.1 (10/04/17:40:00) Bili Indirect: Unable to Calculate Abnormal (10/04/17:40:00) Lipase Lvl: 42 unit/L (10/04/17:40:00) Magnesium: 1.9 mg/dL (10/04/17:40:00) CK MB: 1.8 ng/mL (10/05/17 00:17:00) Myoglobin: 17 ng/mL (10/05/17 00:17:00) Troponin: <0.03 (10/05/17 00:17:00) Total CK: 145 Int._Unit/L (10/05/17 00:17:00) BNP: 19 pg/mL (10/04/17:40:00)Diagnostic Results Computed axial tomography scan angiography of the chest. No evidence of pulmonary embolism. Lungs are clear. No pleural effusions. No adenopathy. Heart size is normal. Aorta is normal. Red by teleradiology, reviewed by Dr. Echols Computed axial tomography scan angiography of the abdomen and pelvis read by teleradiology. Reviewed by Dr. Echols. Distal ileitis suspected. Splenomegaly. Prior cholecystectomy. Normal aorta. No colitis, diverticulitis, appendicitis or small bowel obstruction. No obstructive uropathy. No free air or free fluid. No other acute disease.EKG Results October 04, 2017 to 124 hours. Electronic ventricular pacemaker, 74 bpm. Normal [facility] Comment on above: Result Comment: Elec tronically Signed By: Rena Raman\.br\Electronically Co-Signed By: Jada Echols DO\.br\Date and Time Co-Signed: 10/05/17 01:27 EDT ED Patient Summaryon 018 ED Patient Summary (Inserted Image. Lolis ble to display) [place] [id number] Patient Discharge Instructions Person Information Name: CARITO RIOS Age: 37 Years Date: 10/04/2017 9:16 PMDischarge Diagnosis: 1:Chest pain; 2:Cardiomyopathy Primary Care Physician: ROCK DUNBAR MD Provider InformationPrimary Provider: Jada Echols Adjunct Physics Instructor:None The exam and treatment you received in the Emergency Department were for an urgent problem and are not intended as complete care. It is important that you follow up with a doctor, nurse practitioner, or physician?s maintenance assistant for ongoing care. If your symptoms become worse or you do not improve as expected and you are unable to reach your usual health care provider, you should return to the Emergency Department. We are available 24 hours a day. CARITO RIOS has been given the following list of patient education materials, prescriptions and follow-up instructions: Follow-up Instructions: In the event that this physician does not participate in your insurance network, please consult with your insurance company to find a nearby participating provider. Patient Education Materials: A MESSAGE TO ALL PATIENTS REGARDING OPIOIDS PRESCRIPTION OPIOIDS: WHAT YOU NEED TO KNOW Prescription opioids can be used to help relieve cafqkxfn-aw-nnhxnh pain and are often prescribed following a surgery or injury, or for certain health conditions. These medications can be an important part of the treatment but also come with serious risks. It is important to work with your healthcare provider to make sure you are getting the safest, most effective care. WHAT ARE THE RISKS AND SIDE EFFECTS OF OPIOID USE?Prescription opioids carry serious risks of addiction and overdose, especially with prolonged use. An opioid overdose, often marked by slowed breathing, can cause sudden . The use of prescription opioids can have a number of side effects as well, even when taken as directed:? Tolerance?meaning you might need to take more of the medication for the same pain relief? Physical dependence?meaning you have symptoms of withdrawal when a medication is stopped? Increased sensitivity to pain ? Constipation? Nausea, vomiting, and dry mouth? Sleepiness and dizziness? Confusion? Depression? Low levels of testosterone that can result in lower sex drive, energy, and strength? Itching and sweating RISKS ARE GREATER WITH:? History of drug misuse, substance use disorder, or overdose? Mental health conditions (such as depression or anxiety)? Sleep apnea? Older age (65 years and older)? Avoid alcohol while taking prescription opioids. Also, unless specifically advised by your health care provider, medications to avoid include:? Benzodiazepines (such as Xanax or Valium)? Muscle relaxants (such as Soma or Flexeril)? Hypnotics (such as Ambien or Lunesta)? Other prescription opioids KNOW YOUR OPTIONSTalk to your health care provider about ways to manage your pain that don?t involve prescription opioids. Some of these options may actually work better and have fewer risks and side effects. Options may include:? Pain relievers such as acetaminophen, ibuprofen, and naproxen? Some medication that are also used for depression or seizures? Physical therapy and exercise? Cognitive behavioral therapy, a psychological, goal-directed approach, in which patients learn how to modify physical, behavioral, and emotional triggers of pain and stress. IF YOU ARE PRESCRIBED OPIOIDS FOR PAIN:? Never take opioids in greater amounts or more often than prescribed.? Follow up with your primary health care provider.o Work together to create a plan on how to manage your pain.o Talk about ways to help manage your pain that don?t involve prescription opioids.o Talk about any and all concerns and side effects.? Help prevent misuse and abuseo Never sell or share prescription opioids.o Never use another person?s prescription opioids.? Store prescription opioids in a secure place and out of reach of others (this may include visitors, children, friends, and family).? Safely dispose of unused prescription opioids: Find your community drug take-back program or your pharmacy mail-back program, or flush them down the toilet, following guidance from the Food and Drug Administration (www.fda.gov/Drugs/ResourcesFor You).? Visit www.cdc.gov/drugoverdose to learn about the risks of opioids abuse and overdose.? If you believe you may be struggling with addiction, tell your health weekend caregiver and ask for guidance or call [facility]?S National Helpline at 7-011-039-HELP. v Source: US Department of Health and Human Services/Center for Disease Control & Prevention [facility] Medications Given:Medication Dose Route Sodium Chloride 0.9% intravenous solution 1000.00 mL Initial Volume 75.00 mL/hr IV Left Mid Forearm Sodium Chloride 0.9% intravenous solution 500.00 mL Initial Volume 500.00 mL/hr IV Left Mid Forearm morphine 4.00 mg IV Push Left Mid Forearm ondansetron 4.00 mg IV Push Left Mid Forearm ondansetron 4.00 mg IV Push Left Mid Forearm morphine 4.00 mg IV Push Left Mid Forearm Medication Information:Comment: Pharmacy Information: Thank you for choosing [facility] Patient Education Materials: TOVA Dinh MACKENZIE , have received the following patient education materials/instructions and have verbalized understanding: Patient Education Materials: Follow-up Instructions: Prescriptions: Patient Signature Date Clinician/Nurse Signature Date 10/05/17 02:15:52 [facility] Hep Func Panelon 04-17-2018 BILIRUBIN.NON-GLUC URONIDATED:MSCNC:P T:SER/PLAS:QN: UTC Abnormal 0.1-0.9 [facility] Comment on above: Result Comment: Resu lt verified by Discern Rule. Performed result UT (Unable to Calculate) was sent as an Alpha code due the inability to calculate a valid numeric value. Performed By: #### 2 [id number], [id number], [id number], 5424038, 9448332, 91090114, 5315168, 0371705, 99238945, [id number] ####[facility] [address] [place] [address] Albumin mass conc 1.4 g/dL Normal 1.1-2.2 [facility] Comment on above: Performed By: #### 2 085966, 3138630, 53236354, 3334705, 1886009, 02851731, 8834645, 0530314, 93299073, 61344575 ####[facility] [address] [place] [address] Albumin mass conc 3.8 g/dL Normal 3.3-5.0 [facility] Comment on above: Performed By: #### 2 522964, 4197549, [id number], 6379735, 5271412, 14962658, 4874106, 3904859, 51357680, [id number] ####[facility] [address] [place] [address] ALP enzyme act/vol 62 Int._Unit/L Normal 21-98 [facility] Comment on above: Performed By: #### 2 883237, 7886038, 72147928, 4778485, 2521766, 86984702, 2227098, 5321498, 90094437, 85101224 ####[facility] [address] [place] [address] ALT No additional P-5'-P enzyme act/vol 9 Int._Unit/L Normal 6-46 [facility] Comment on above: Performed By: #### 2 873567, 2132329, 92284462, 3351109, 0591663, 27222793, 8357934, 0264080, 40789194, 59889874 ####[address] [place] [address] AST enzyme act/vol 21 Int._Unit/L Normal 5-43 [facility] Comment on above: Performed By: #### 2 699635, 2741986, 11707412, 9720095, 6774268, 38938025, 1526236, 8546956, 53799098, 03296827 ####[address] [place] [address] Bilirubin mass conc 0.5 mg/dL Normal 0.0-1.1 [facility] Comment on above: Performed By: #### 2 901600, 1506076, 69963092, 8733500, 7437858, 03759909, 5707510, 8114569, 86403840, 14882930 ####[address] [address] Bilirubin.direct mass conc mg/dL Normal 0.1-0.4 [facility] Comment on above: Performed By: #### 2 352435, 4214286, 60975288, 6460936, 4603749, 37318081, 7228547, 7872478, 10007479, 17551699 ####[address] [place] [address] Globulin Calculated mass conc (S) 2.7 g/dL Normal 1.4-4.0 [facility] Comment on above: Performed By: #### 2 139394, 9580063, 23703114, 9041321, 4534898, 10414356, 9557905, 9473065, 51405490, 71086131 ####[facility] [address] [place] [address] Protein mass conc 6.5 g/dL Normal 6.0-7.8 [facility] Comment on above: Performed By: #### 2 454447, 4028118, 87909828, 6291935, 3231890, 96594773, 1504729, 7174519, 03198075, 30146469 ####[facility] [address] [place] [address] History and Physicalon 10-05 History and Physical Chief Complaint Pt c/o left anterior chest pain through to the back since 7pm. Associated with SOB & dizziness, nausea, no diaphoresis. ASA 162mg PO @ 8pm. Pt states hx of CHF & Cardiomyopathy - has Pacemaker/AICD. Sees Dr. Sofia @ [facility].History of Present Illness Patient is a pleasant 37-year-old white female with a past medical history of viral cardiomyopathy that was diagnosed in 2008 at the [facility] . Patient states she had a cardiac catheterization and there was no evidence of coronary artery disease. Patient curiously states she had a cardiac catheterization in 2007 as well because of her family history and very similarly she was told there was no significant coronary occlusive disease. She states her initial ejection fraction was 12%. Her lowest recent echocardiogram had demonstrated an improvement in her ejection fraction to 40%. Patient had been on Coreg, Aldactone and lisinopril. She was taken off lisinopril due to her cough was placed on Cozaar. Patient 4 years ago at [place] epigastric sleeve placed and after this had significant weight loss. Her Aldactone and a Cozaar was discontinued and she was getting lightheaded and she was hypotensive. Patient also had a history of a pulmonary embolism after having a pacemaker defibrillator placed in 2008 and admits to significant family history in that her father had a myocardial infarct at the age of 41 and has a described prothrombotic disorder. Patient also has a history of continued tobacco use 1/2-1 pack per day but denies any diabetes or hypertension. She does have a history of anxiety and states 1 month ago her primary care physician converted her from Xanax 1 mg 4 times a day to her Klonopin, she feels this has been effective. Patient states that she was in her usual state of health until last 2 days. She admits to feeling excessively tired . Today at approximate 7 PM while nonexertional she began to experience chest pain that she describes as being retrosternal and it ultimately had radiated through to her back into her left shoulder. She had taken 2 baby aspirin. The pain intensified to level of 8 on a scale of 1-10 and therefore presented to the hospital. She states this chest pain is not positional but curiously was worsened whenever exhaling. She admitted to having some degree of shortness of breath. She also has had intermittent nausea and lightheadedness (curiously worse when supine position). She's had no recent cough or fevers or chills. She denies any heartburn, reflux or dysphagia. She states that present her pain is a 5 on a scale 1-10. There was concern in the emergency department that she had received 8 mg total of morphine and yet continued to have this chest discomfort.Review of Systems Constitutional: no fever, no chills, no sweats, no weakness Skin: no Jaundice, no rash, no lesions, nopetechiae ENMT: no ear pain, no sore throat, no congestion, no hoarseness Respiratory: mild shortness of breath, no cough, no orthopnea, no wheezing Cardiovascular: moderate chest pain, no palpitations, no edema Gastrointestinal: no nausea, no vomiting, no diarrhea, no GI bleeding Genitourinary: no dysuria, no hematuria, no discharge, no pain Musculoskeletal: no back pain, no trauma Neurologic: no headache, mild dizziness, no numbness, no weakness Psychiatric: no sleeping problems, no irritability, no mood swings/depression. Heme/Lymph: no bleeding tendency, no bruising tendency, no petechiae, no swollen nodes Allergy/Immunologic: no seasonal allergies, no food allergies, no recurrent infections, no impaired immunity Additional ROS info: Except as noted in the above Review of Systems and in the History of Present Illness all other systems have been reviewed and are negative or noncontributory.Physical Exam Vitals & Measurements T: 36.5 ?C (Oral) TMIN: 36.5 ?C (Oral) TMAX: 36.6 ?C (Oral) HR: 59(Peripheral) RR: 18 BP: 147/96 SpO2: 100% WT: 91.4 kg General: alert, no acute distress . Concerned Skin: warm, dry Head: no trauma, normocephalic Neck: Trachea midline, no adenopathy, no tenderness Eye: normal conjunctiva, sclera clear ENMT: TM's clear, oral mucosa moist, no pharyngeal erythema or exudate Cardiovascular: regular rate and rhythm, normal peripheral perfusion Respiratory: Lungs CTA, respirations non labored Chest wall: no deformity. Gastrointestinal: soft, non distended, no tenderness, no guarding. Back: No tenderness, Normal ROM, Normal alignment. Note there was no reproducibility of her discomfort when applying pressure to the sternal region which is the area of her original discomfort Extremities: no deformity, no trauma Neurological: oriented x 4, LOC appropriate for age, , motor strength equal & normal bilaterally, sensation equal & normal bilaterally, speech normal Psychiatric: cooperative, affect appropriate for age, normal judgement, normal psychiatric thoughts.Lab Results WBC: 5.1 E9/L (10/04/17 21:40:00) RBC: 4.4 E12/L (10/04/17 21:40:00) Hgb: 13.2 gm/dL (10/04/17 21:40:00) Hct: 37.3 % (10/04/17 21:40:00) MCV: 85.4 fL (10/04/17 21:40:00) MCH: 30.3 pg (10/04/17 21:40:00) MCHC: 35.5 gm/dL (10/04/17 21:40:00) RDW: 13.1 % (10/04/17 21:40:00) Platelet: 183 E9/L (10/04/17 21:40:00) MPV: 9.1 fL (10/04/17 21:40:00) Neutro Auto: 69.9 % (10/04/17 21:40:00) Lymph Auto: 19.5 % (10/04/17 21:40:00) Kenton Auto: 7.8 % (10/04/17 21:40:00) Eos Auto: 1.9 % (10/04/17 21:40:00) Basophil Auto: 0.9 % (10/04/17 21:40:00) Neutro Absolute: 3.6 E9/L (10/04/17 21:40:00) Lymph Absolute: 1 E9/L (10/04/17 21:40:00) Kenton Absolute: 0.4 E9/L (10/04/17 21:40:00) Eos Absolute: 0.1 E9/L (10/04/17 21:40:00) Basophil Absolute: 0 E9/L (10/04/17 21:40:00) PT: 11.5 second(s) (10/04/17 21:40:00) INR: 1 (10/04/17:40:00) PTT: 36.4 second(s) (10/04/17 21:40:00) Glucose Lvl: 99 mg/dL (10/04/17 21:40:00) BUN: 7 mg/dL (10/04/17:40:00) Creatinine: 0.7 mg/dL (10/04/17 21:40:00) eGFR: >60 (10/04/17 21:40:00) eGFR AA: >60 (10/04/17:40:00) BUN/Creat Ratio: 10 (10/04/17 21:40:00) Sodium Lvl: 137 mmol/L (10/04/17 21:40:00) Potassium Lvl: 3.3 mmol/L Low (10/04/17 21:40:00) Chloride: 106 mmol/L (10/04/17 21:40:00) CO2: 24 mmol/L (10/04/17 21:40:00) AGAP: 10 mEq/L (10/04/17:40:00) Calcium Lvl: 8.5 mg/dL Low (10/04/17 21:40:00) Alk Phos: 62 Int._Unit/L (10/04/17 21:40:00) ALT: 9 Int._Unit/L (10/04/17 21:40:00) AST: 21 Int._Unit/L (10/04/17 21:40:00) Total Protein: 6.5 gm/dL (10/04/17 21:40:00) Albumin Lvl: 3.8 gm/dL (10/04/17 21:40:00) Globulin: 2.7 gm/dL (10/04/17 21:40:00) A/G Ratio: 1.4 (10/04/17 21:40:00) Bili Total: 0.5 mg/dL (10/04/17 21:40:00) Bili Direct: <0.1 (10/04/17 21:40:00) Bili Indirect: Unable to Calculate Abnormal (10/04/17 21:40:00) Lipase Lvl: 42 unit/L (10/04/17 21:40:00) Magnesium: 1.9 mg/dL (10/04/17 21:40:00) CK MB: 1.7 ng/mL (10/05/17 03:18:00) Myoglobin: 17 ng/mL (10/05/17 00:17:00) Troponin: <0.03 (10/05/17 03:18:00) Total CK: 129 Int._Unit/L (10/05/17 03:18:00) BNP: 19 pg/mL (10/04/17 21:40:00)Diagnostic Results CT a of the chest read by teleradiology is no evidence of PE. The lungs are clear. No pleural effusions. No adenopathy. Heart size is normal. Aorta is unremarkable CTA of the abdomen and pelvis is read by teleradiology ?Distal ileitis suspected, consider infectious or inflammatory in etiology ?Splenomegaly ?Prior cholecystectomy ?Normal aorta ?No colitis, diverticulitis, appendicitis or bowel obstruction. No obstructive uropathy, free air or free fluid. No other acute disease ECG demonstrates sinus rhythm with paced ventricular complexesAssessment/Plan 1. Chest pain With reported history of cardiac catheterization in 2007 and 2008 with no significant coronary artery disease and with the atypical nature of her symptoms suspect low likelihood of acute coronary syndrome . However patient does have a family history of a prothrombotic state and a personal history of pulmonary embolism ( please note CT of the chest was negative in the emergency department for pulmonary embolism) patient has been admitted to [facility] cardiac enzymes, will observe on telemetry. If cardiac workup ultimately proves to be negative ,question with history below of gastrointestinal in origin (though note pleuritic nature?). We'll consult with cardiology Ordered: pantoprazole, 40 mg = 10 mL, Injection, IV Push, Once, Stop date 10/05/17 5:00:00 EDT, Routine, Start date 10/05/17 5:00:00 EDT pantoprazole, 40 mg = 10 mL, Injection, IV Push, Daily, Routine, Start date 10/05/17 9:00:00 EDT Consult to GI Sedimentation Rate Automated 2. Dizzy spells We'll observe for any evidence of arrhythmia. Note patient has had no firing of her implantable cardiac defibrillator. With low potassium we'll observe for rhythm changes. As it occurs with nausea potential vasovagal influences are considered as well. We'll hydrate with IV fluids but non agressively with hx of cardiomyopathy. 3. Nausea On examination patient did have hypoactive bowel sounds, question role of hypokalemia versus other. Note patient does state that she smokes marijuana no more frequently than once every 2 weeks this also can decreased GI motility. Also note prior history of bariatric surgery as alluded to below. With patient's atypical presentation with chest pain, prior history of bariatric surgery, computed tomography scan of the abdomen and pelvis suggestive of distal ileitis also ?splenomegaly (with neg CTA abdomen of importance with family hx of prothropmbotic state and personal hx below ?precipitated),will consult with gastroenterology. Will provide when necessary Zofran. We'll also administer PPI until seen by gastroenterology Ordered: Consult to GI 4. Cardiomyopathy Described as being viral and nonischemic in origin and was confirmed by cardiac catheterization in 2008. Patient is on Lasix and Coreg and is followed by cardiology from [facility]. She is no longer on lisinopril due to a cough she had been switched to Cozaar at the time she was also taking Aldactone but as she lost significant amounts of weight she became lightheaded and relatively hypotensive therefore these other agents were discontinued. She is followed by Dr. Sofia was last seen by him last month 5. History of pulmonary embolism Note CTA in emergency department was negative for pulmonary embolism. Patient describes this as occurring when they had difficulty placing an implantable cardiac defibrillator in 2008 by the traditional root. Question therefore if can be explained by vascular injury persists with family history that this is suggestive of a personal prothrombotic state 6. Acute hypokalemia Likely due to diuretic, with complaints of dizziness we'll observe on telemetry for any arrhythmia, we'll supplement orally. Question role in her unexplained fatigue over the last 2 days. 7. Tobacco abuse We'll order a nicotine patch 8. Splenomegaly ?incidental ?congenital ?contributing to nausea or above symptoms,consult with GI 9. H/O bariatric surgery Please see above and below ,will consult with gastroenterology 10. Chronic anxiety She states she was switched from Xanax a month ago to Klonopin which she feels is been more beneficial. We'll continue this agent Orders: Dextrose 5% with 0.45% NaCl and KCl 20 mEq/l 1,000 mL, 1,000 mL, IV, 50 mL/hr, Routine, Start date 10/05/17 4:18:00 EDT, 20 hour(s), Total volume (mL): 1,000 heparin, 5,000 unit(s) = 1 mL, Injection, SubCutaneous, BID, Routine, Start date 10/05/17 9:00:00 EDT ondansetron, 4 mg = 2 mL, Injection, IV Push, q6hr PRN Nausea, Routine, Start date 10/05/17 4:18:00 EDT promethazine, 12.5 mg = 0.5 mL, Injection, IV Push, q6hr PRN Nausea, Routine, Start date 10/05/17 4:18:00 EDT Ambulate with Assistance Basic Metabolic Panel Cardiac Monitoring CBC w/ Auto Diff Chest Pain, AMI Quality Measures Consult to Cardiology Lipid Panel Notify Provider Vital Signs Notify Provider Vital Signs NPO Diet Oxygen Protocol Place in Status Resuscitation Status - Full ARNOLD Risk Score TSH With T4fr Reflex Vital Signs Weight Patient is admitted as an observation. It is anticipated that she will not require 2 midnight stayProblem List/Past Medical History Ongoing Cardiomyopathy CHF - Congestive heart failure Pulmonary embolism Smoker Historical No qualifying dataProcedure/Surgical History Cardiac pacemaker (2008), Implantation of automatic cardioverter/defibrillator, total system (AICD) (2008), Abdominal hysterectomy, delivery, Cholecystectomy, Excision of tonsil, Gastric bypass, hand surgery.Medications Inpatient D5/0.45% NaCl w/20 KCl 1000 mL Soln-IV 1,000 mL, 1000 mL, IV heparin 5000 units/mL Inj, 5000 unit(s)= 1 mL, SubCutaneous, BID pantoprazole 40 mg IV Inj, 40 mg= 10 mL, IV Push, Once pantoprazole 40 mg IV Inj, 40 mg= 10 mL, IV Push, Daily Phenergan 25 mg/mL Injection, 12.5 mg= 0.5 mL, IV Push, q6hr, PRN Zofran 4 mg/2 mL Injection, 4 mg= 2 mL, IV Push, q6hr, PRN Home clonazepam 1 mg Tab, 1 mg= 1 tab(s), Oral, TID, PRN Coreg 25 mg Tab, 25 mg= 1 tab(s), Oral, Daily Lasix 20 mg Tab, 20 mg= 1 tab(s), Oral, BID venlafaxine 75 mg Tab, 75 mg= 1 tab(s), Oral, DailyAllergies Bactrim (Rash) Mefoxin (Rash) amoxicillin (Rash)Social History Alcohol - Denies Alcohol Use, 10/04/2017 Current, 10/04/2017 Substance Abuse - Denies Substance Abuse, 10/04/2017 Tobacco - High Risk, 10/04/2017 10 or more cigarettes (1/2 pack or more)/day in last 30 days Tobacco Use:., 10/04/2017Family History Acute myocardial infarction: Mother. Asthma: Mother and Sister. Clotting disorder: Father. Dementia: Father. Depression: Mother and Sister. Diabetes mellitus type 2: Mother. Hyperlipidemia: Mother. Hypertension: Mother and Father. Renal failure syndrome: Mother. Sleep apnea: Mother. Stroke: Mother and Father. Normal [facility] Comment on above: Result Comment: Elec tronically Signed By: Yovanny Pollard DO\.br\Date and Time Signed: 10/05/17 04:28 EDT Inpatient Clinical Summaryon 10-05-2017 Inpatient Clinical Summary [place] [id number] Clinical Summary Person Information:Name: CAIRTO RIOS Age: 37 Years : 1980 12:00 AM Sex: Female PCP: ROCK DUNBAR MD Marital Status: Phone: [phone] Race:White Ethnicity:Non- or Language:Omani Visit Id: Visit Reason:Dizziness; Chest pain; CHEST PAIN Speciality: Acuity: 2 Enc Type: Observation Med Service: Medical Arrival:10/04/2017 9:16 PM Discharge: Dispo Type: Admitted as IP to this Hosp Address:[address] [place] [address] [address] [facility] [id number] Provider Notes: Diagnosis:1:Chest pain; 2:Dizzy spells; 3:Nausea; 4:Cardiomyopathy; 5:History of pulmonary embolism; 6:Acute hypokalemia; 7:Tobacco abuse; 8:Splenomegaly; 9:H/O bariatric surgery; 10:Chronic anxiety Problems Active Smoker Cardiomyopathy CHF - Congestive heart failure Pulmonary embolism (2008) Smoking Status:Current Every Day Smoker Functional Status:Sensory Deficits: No hearing deficits, No visual deficitsHistory of Falls: Mobility Assistance Prior to Admission: IndependentADLs: IndependentCurrent Level of Assistance for Self-Care/Mobility: Cognitive Status:Oriented x 3 Allergies amoxicillin (Rash) Bactrim (Rash) Mefoxin (Rash) Measurements:Height: 174 cmWeight: 91.5 kgBlood Pressure: 126 mmHg / 79 mmHgBMI: 30.19 kg/m2 Procedures hand surgery delivery Cholecystectomy Gastric bypass Excision of tonsil Abdominal hysterectomy Implantation of automatic cardioverter/defibrillator, total system (AICD) (2008) Cardiac pacemaker (2008) Immunizations No Immunizations Documented This Visit Final Med List:carvedilol (Coreg 25 mg Tab) 1 Tabs By Mouth every day.clonazepam (clonazepam 1 mg Tab) 1 Tabs By Mouth 3 times a day as needed Anxiety.furosemide (Lasix 20 mg Tab) 1 Tabs By Mouth 2 times a day.nicotine (nicotine 7 mg/24 hr Transderm ER Film) 1 Patches Transdermal every day for 21 Days. Refills: 0.pantoprazole (pantoprazole 40 mg Oral EC Tab) 1 Tabs By Mouth 2 times a day for 30 Days. Refills: 0.venlafaxine (venlafaxine 75 mg Tab) 1 Tabs By Mouth every day. Care Team Members:Attending Physician: Yovanny Pollard DO AConsultrahul Physician: Oskar Pizano MD Physician: Follow up:With: Address: When: Aguilar Goodman [address] [place] [id number] Business (1) Within 7 to 10 days With: Address: When: follow up with your rn x ray at [facility] Within 1 week With: Address: When: ROCK DUNBAR [address] [place] [address] Business (1) Within 3 to 5 days Patient Education Information: pantoprazole 40 mg Oral EC Tab Normal [facility] Inpatient Patient Summaryon 10-05-2017 Inpatient Patient Summary [address], [place] [address] Patient Discharge Instructions PERSON INFORMATION Name: CARITO RIOS Date of : 1980 12:00 AM Current Date: 10/05/17 17:00:22 PHYSICIANS Admitting Physician: Yovanny Pollard DO, APrima Care Physician: HOWARD DUNBAR MD Comment: Discharge Diagnosis: 1:Chest pain; 2:Dizzy spells; 3:Nausea; 4:Cardiomyopathy; 5:History of pulmonary embolism; 6:Acute hypokalemia; 7:Tobacco abuse; 8:Splenomegaly; 9:H/O bariatric surgery; 10:Chronic anxietyCondition at Discharge: Improved ANDREINA RIOSIE has been given the following list of follow-up instructions, prescriptions, and patient education materials: PATIENT FOLLOW-UP INFORMATIONDiet: Fat Modified- Low cholesterol, Low Sodium- 2000 mgDischarge Activity: Ambulate as toleratedDischarge Restrictions: Wound Care Instructions: Remove Your Dressing In DaysCall Your Doctor For: IF UNABLE TO CONTACT YOUR PHYSICIAN AND YOU FEEL IT IS AN EMERGENCY, GO TO THE NEAREST EMERGENCY ROOM OR CALL 911 Home Treatment: Devices/Equipment: Special Services: Additional Instructions: Primary Care Physician to provide the following pending test results: NoneFollow up:With: Address: When: Aguilar Goodman [address] [place] [address] Business () Within 7 to 10 days With: Address: When: follow up with your rn x ray at [facility] Within 1 week With: Address: When: ROCK DUNBAR [address] [place] [id number] Business (1) Within 3 to 5 days In the event that this physician does not participate in your insurance network, please consult with your insurance company to find a nearby participating provider. Comment: TOVA Dinh MACKENZIE, have received the attached patient education materials/instructions and have verbalized understanding:Patient Signature Date Clinican/Nurse Signature Date HERE ARE THE MEDICATION CHANGES THAT OCCURRED DURING YOUR HOSPITAL STAY New MedicationsPrinted Prescriptionsnicotine (nicotine 7 mg/24 hr Transderm ER Film) 1 Patches Transdermal every day for 21 Days. Refills: 0.Last Dose: Next Dose: pantop razole (pantoprazole 40 mg Oral EC Tab) 1 Tabs By Mouth 2 times a day for 30 Days. Refills: 0.Last Dose: Next Dose: Medica tions to Continue with No ChangesOther Medicationscarvedilol (Coreg 25 mg Tab) 1 Tabs By Mouth every day.Last Dose: Next Dose: clonaz epam (clonazepam 1 mg Tab) 1 Tabs By Mouth 3 times a day as needed Anxiety.Last Dose: Next Dose: furose mide (Lasix 20 mg Tab) 1 Tabs By Mouth 2 times a day.Last Dose: Next Dose: venlaf axine (venlafaxine 75 mg Tab) 1 Tabs By Mouth every day.Last Dose: Next Dose: Commen t: MEDICATION LIST PROVIDED FOR YOU IS A LIST OF YOUR CURRENT MEDICATIONS. PLEASE CARRY THIS WITH YOU AT ALL TIMES. carvedilol (Coreg 25 mg Tab) 1 Tabs By Mouth every day.clonazepam (clonazepam 1 mg Tab) 1 Tabs By Mouth 3 times a day as needed Anxiety.furosemide (Lasix 20 mg Tab) 1 Tabs By Mouth 2 times a day.nicotine (nicotine 7 mg/24 hr Transderm ER Film) 1 Patches Transdermal every day for 21 Days. Refills: 0.pantoprazole (pantoprazole 40 mg Oral EC Tab) 1 Tabs By Mouth 2 times a day for 30 Days. Refills: 0.venlafaxine (venlafaxine 75 mg Tab) 1 Tabs By Mouth every day.Pharmacy Information: FAMIL[facility] Navya comment: PATIENT EDUCATION INFORMATIONInstructions: Medication Leaflets:pantoprazole (oral/injection) (simpson TOE pra zole)Protonix What is the most important information I should know about pantoprazole?Call your doctor at once if you have symptoms of a serious side effect: decreased urination, blood in your urine, severe stomach pain, watery or bloody diarrhea, or symptoms of joint pain or a skin rash that worsens in sunlight.You may be more likely to have a broken bone while using pantoprazole. Tell your doctor right away if you have unusual pain in your wrist, hip, or spine.What is pantoprazole?Pantoprazole is a proton pump inhibitor that decreases the amount of acid produced in the stomach. Pantoprazole is used to treat erosive esophagitis (damage to the esophagus from stomach acid caused by gastroesophageal reflux disease, or GERD) in adults and children who are at least 5 years old. Pantoprazole is usually given for up to 8 weeks at a time while your esophagus heals. Pantoprazole is also used to treat Ban-Nuñez syndrome and other conditions involving excess stomach acid.Pantoprazole is not for immediate relief of heartburn.Pantoprazole may also be used for purposes not listed in this medication guide.What should I discuss with my healthcare provider before using pantoprazole?Heartburn can mimic the first symptoms of a heart attack. Get emergency medical help if you have chest pain that spreads to your jaw or shoulder and you feel anxious or light-headed.You should not use this medicine if:?? you also take medicine that contains rilpivirine (Edurant, Complera, Juluca, Odefsey); or? you are allergic to pantoprazole or similar medicines (lansoprazole, omeprazole, Nexium, Prevacid, Prilosec, and others).Tell your doctor if you have ever had:?? low levels of magnesium in your blood; ? lupus; or? osteoporosis or low bone mineral density.You may be more likely to have a broken bone while using pantoprazole. Talk with your doctor about ways to keep your bones healthy, especially if you are an adult over 50. It is not known whether this medicine will harm an unborn baby. Tell your doctor if you are or plan to become .You should not breast-feed while using this medicine.Pantoprazole is not approved for use by anyone younger than 5 years old. How should I use pantoprazole?Follow all directions on your prescription label and read all medication guides or instruction sheets. Use the medicine exactly as directed.Use the lowest dose for the shortest amount of time needed to treat your condition. Pantoprazole is taken by mouth (oral) or given as an infusion into a vein (injection). A healthcare provider may teach you how to properly use pantoprazole injection by yourself. Pantoprazole tablets are taken by mouth, with or without food. Pantoprazole oral granules should be taken 30 minutes before a meal.Do not crush, chew, or break the tablet. Swallow it whole.The oral granules should be mixed with applesauce or apple juice and given either by mouth or through a nasogastric (NG) tube. Read and carefully follow any Instructions for Use provided with your medicine. Ask your doctor or pharmacist if you have any questions.Use this medicine for the full prescribed length of time. Your symptoms may improve before the condition is fully treated.If you use pantoprazole for longer than 3 years, you could develop a vitamin B-12 deficiency. Talk to your doctor about how to manage this condition.Call your doctor if your symptoms do not improve or if they get worse while you are using this medicine.Pantoprazole can cause false results with certain medical tests, including a urine drug screening test. Tell the doctor or laboratory staff that you are using this medicine.Store this medicine at room temperature away from moisture, heat, and light.What happens if I miss a dose?Use the medicine as soon as you can, but skip the missed dose if it is almost time for your next dose. Do not use two doses at one time. What happens if I overdose?Seek emergency medical attention or call the Poison Help line at .What should I avoid while using pantoprazole?This medicine can cause diarrhea, which may be a sign of a new infection. If you have diarrhea that is watery or bloody, call your doctor. Do not use anti-diarrhea medicine unless your doctor tells you to.What are the possible side effects of pantoprazole?Get emergency medical help if you have signs of an allergic reaction: hives; difficulty breathing; swelling of your face, lips, tongue, or throat.Call your doctor at once if you have:?? severe stomach pain, diarrhea that is watery or bloody;? new or unusual pain in your wrist, hip, or back;? bruising or swelling where intravenous pantoprazole was injected;? new or worsening symptoms of lupus--joint pain or swelling with a skin rash on your cheeks or arms (worsens in sunlight); ? kidney problems--urinating less than usual, blood in your urine, swelling, rapid weight gain; ? symptoms of low magnesium--dizziness, fast heartbeats, feeling jittery, muscle pain or weakness, spasms in your hands and feet, a choking feeling, or a seizure; or? symptoms of low vitamin B--muscle weakness, irregular heartbeats, feeling light-headed or short of breath, pale skin, tiredness, mood changes, numbness or tingling in your arms and legs. Common side effects may include:?? headache, dizziness;? stomach pain, gas, nausea, vomiting, diarrhea; ? joint pain; or? fever, rash, or cold symptoms (most common in children).This is not a complete list of side effects and others may occur. Call your doctor for medical advice about side effects. You may report side effects to FDA at 6-934-VLS-7332.What other drugs will affect pantoprazole?Tell your doctor about all your other medicines. Some may interact with pantoprazole, especially:?? digoxin;? methotrexate; or? a diuretic or 'water pill.'This list is not complete. Other drugs may affect pantoprazole, including prescription and [id number] medicines, vitamins, and herbal products. Not all possible drug interactions are listed here.Where can I get more information?Your pharmacist can provide more information about pantoprazole.Remember, keep this and all other medicines out of the reach of children, never share your medicines with others, and use this medication only for the indication prescribed.Every effort has been made to ensure that the information provided by [employer]. ('[employer]') is accurate, up-to-date, and complete, but no guarantee is made to that effect. Drug information contained herein may be time sensitive. [employer] information has been compiled for use by healthcare practitioners and consumers in the [place] and therefore [employer] does not warrant that uses outside of the [place] are appropriate, unless specifically indicated otherwise. [employer]'s drug information does not endorse drugs, diagnose patients or recommend therapy. [employer] drug information is an informational resource designed to assist licensed healthcare practitioners in caring for their patients and/or to serve consumers viewing this service as a supplement to, and not a substitute for, the expertise, skill, knowledge and judgment of healthcare practitioners. The absence of a warning for a given drug or drug combination in no way should be construed to indicate that the drug or drug combination is safe, effective or appropriate for any given patient. [employer] does not assume any responsibility for any aspect of healthcare administered with the aid of information [employer] provides. The information contained herein is not intended to cover all possible uses, directions, precautions, warnings, drug interactions, allergic reactions, or adverse effects. If you have questions about the drugs you are taking, check with your doctor, nurse or pharmacist. Copyright 5945-7290 [employer] Version: 18.01. Revision Date: 08/05/2017. 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 White board updated, no family present. Pt awake, alert, laying in bed talking with the doctor. Pt feeling sore and tired. Pt discussed Can [facility]er is in [place]. Pt discussing how she felt and why she came here. Doctor discussed lab's. Pt understands plan is await [facility], GI recommendations, await test results, possible d/c today if ok. PCP is Bettina. Pt would not like CRM to update family, she is talking with them. Normal [facility] Lipid Panelon 10-05-2017 Cholesterol in HDL mass conc 44 mg/dL Invalid Interpretation Code [facility] Comment on above: Result Comment: HDL > or equal to 60 mg/dL: Low cardiovascular riskHDL < 40 mg/dL : High cardiovascular risk Performed By: #### 2 937905, 5077363, 36265468, 8274746, 0858513, 82475002, 0870142, 8896792, 48992867, 07124946 ####[facility] [address] [place] [address] Cholesterol in LDL mass conc 42 mg/dL Normal <=129 [facility] Comment on above: Performed By: #### 2 253103, 0122458, 51465113, 5233413, 1348614, 51832986, 2729585, 3344416, 95441672, 81824521 ####[facility] [address] [place] [address] Cholesterol in VLDL mass conc 10 mg/dL Normal 7-40 [facility] Comment on above: Performed By: #### 2 379376, 3743898, 62774814, 3419534, 2319092, 57412246, 0092890, 0449521, 29447683, 18394650 ####[facility] [address] [place] [address] Cholesterol mass conc 100 mg/dL Low 120-200 [facility] Comment on above: Performed By: #### 2 609216, 1595950, 33114919, 3995376, 5013903, 33337062, 5627031, 5248710, 82210466, 29561014 ####[facility] [address] [place] [address] Triglyceride mass conc 51 mg/dL Normal <=149 [facility] Comment on above: Performed By: #### 2 467656, 6540223, 93212147, 5151681, 3493464, 83704110, 8401569, 2735771, 73860480, 12858847 ####[facility] [address] [place] [address] Magnesiumon 10-05-2017 Magnesium mass conc 1.9 mg/dL Normal 1.3-2.4 [facility] Comment on above: Performed By: #### 2 877094, 2000734, 52223365, 1897518, 1255962, 01882904, 5399627, 0609678, 68709316, 62073108 ####[facility] [address] [place] [address] Main OR PACU I Recordon 09-19 Main OR PACU I Record PACU Phase I Document Type FT Summary Primary Physician: Aguilar Pizano MD Finalized Date/Time: 10/05/17 16:01:16 Pt. Name: CARITO RIOS/Sex: 1980 Female Med Rec #: [id number] Physician: Jada Echols DO Financial #: [id number] Pt. Type: O Room/Bed: 18/ Admit/Disch: 10/04/17 21:16:00 - Institution: Case Times PACU I FT Pre-Care Text: Identifies barriers to communication and implements measures to provide psychological support Develops individualized plan of care, and ensures continuity of care Maintains patient's dignity and privacy, and maintains patient confidentiality Identifies and reports philosophical, cultural, and spiritual beliefs and values Identifies individual values and wishes concerning care Implements aseptic technique, and administers prescribed antibiotic therapy and immunizing agents as ordered Evaluates postoperative tissue perfusion Implements thermoregulation measures, and monitors body temperature Evaluates postoperative respiratory status Evaluates postoperative cardiac status Evaluates postoperative neurological status Assesses pain control, collaborated in initiating patient-controlled analgesia and implements alternative methods of pain control Verifies allergies, administers prescribed medications and solutions, evaluates response to medications Entry 1 In PACU I 10/05/17 15:25:00 Discharge from PACU 10/05/17 15:55:00 I Outcomes Met? Yes Last Modified By: Shabana Walker RN 10/05/17 16:00:59 Post-Care Text: The patient demonstrates knowledge of the expected response to the operative or invasive procedure The patient's care is consistent with the individualized perioperative plan of care The patient's right to privacy is maintained The patient's value system, lifestyle, ethnicity, and culture are considered, respected, and incorporated into the perioperative plan of care The patient participates in decisions affecting his or her perioperative plan of care The patient is free from signs and symptoms of infection The patient has wound/tissue perfusion consistent with or improved from baseline levels established preoperatively The patient is at or returning to normothermia at the conclusion of the immediate postoperative period The patient's respiratory function is consistent with or improved from baseline levels established preoperatively The patient's cardiovascular status is consistent with or improved from baseline levels established preoperatively The patient's cardiovascular status is consistent with or improved from baseline levels established preoperatively The patient demonstrates and/or reports adequate pain control throughout the perioperative period The patient received appropriate medication(s), safely administered during the perioperative period Acuity Level PACU I FT Entry 1 Start Time 10/05/17 15:25:00 Stop Time 10/05/17 15:55:00 Acuity Level Acuity Level I Last Modified By: Shabana Walker RN 10/05/17 16:01:14 Finalized By: Shabana Walker RN Document Signatures Signed By: Shabana Walker RN 10/05/17 16:01 [facility] Main OR Preoperative Recordo n 10-05-2017 Main OR Preoperative Record Holding Area Document Type FT Summary Primary Physician: Aguilar Pizano MD Finalized Date/Time: 10/05/17 14:27:28 Pt. Name: CARITO RIOS /Sex: 1980 Female Med Rec #: [id number] Physician: Jada Echols DO Financial #: [id number] Pt. Type: O Room/Bed: N318 Admit/Disch: 10/04/17 21:16:00 - Institution: Case Times Holding FT Pre-Care Text: Verifies consent for planned procedure, identifies individual values and wishes concerning care, includes family members in perioperative teaching Secures patient's records' belongings, and valuables, maintains patient's dignity and privacy, and maintains patient confidentiality Entry 1 In Holding 10/05/17 14:06:00 Outcomes Met? Yes Last Modified By: KIARA Raines RN, M., Cheryl ARCINIEGA 10/05/17 14:14:00 Post-Care Text: The patient participates in decisions affecting his or her perioperative plan of care The patient's right to privacy is maintained Surgery Checklist FT Entry 1 Patient Birthday, ID Band Procedure History and Physical, Identification: Check, Patient Verification: Surgical Consent, With Participation Patient NPO after Midnight: Yes Results Reviewed see IP RESULTS Comments: Personal Items: Contact Lenses, Personal Items UPPER DENTURE, CONTACTS Defibrilator, Dentures, Comment: Pacemaker Limitations: VISION Complaints of Pain: Yes Pain Comment: 4 EPIGASTRIC-SAME ALL Operative Site n/a DAY Marking: Availability Equipment Verified: Does Patient Smoke Yes If Yes to Smoking. 1/2 TO 1 PK CIGARETTES Cigars or DAY Cigarettes. How much per day? Patient states Yes Comment - Adult IP N318 postop adult Supervision supervision available Case Cancelled in No Holding Area see comments below for reason Last Modified By: KIARA Raines RN, MFlory, Cheryl ARCINIEGA 10/05/17 14:17:51 Finalized By: KIARA Raines RN, Margret, Cheryl ARCINIEGA Document Signatures Signed By: KIARA Raines RN, MFlory, Cheryl ARCINIEGA 10/05/17 14:17 KIARA Raines RN, Margret, Cheryl ARCINIEGA 10/05/17 14:17 KIARA Raines RN, Margret, Cheryl ARCINIEGA 10/05/17 14:27 Normal [facility] PT & PTTon 10-05-2017 aPTT Coag time (Bld) 36.4 second(s) Normal 25.1-36.5 [facility] Comment on above: Result Comment: Hepa rin therapeutic range (represented by Anti-Factor Xa activity of 0.2 - 0.4 U/mL) corresponds to PTT of 53.9 - 87.4 sec. Performed By: #### 2 716577, 8982687, 04747272, 6537917, 2579393, 42893921, 4198365, 3182933, 30739311, 47532160 ####[facility] [address] [place] [address] INR Coag RelTime (PPP) 1.0 {INR} Invalid Interpretation Code [facility] Comment on above: Result Comment: INR results are specifically intended to assess patients stabilized on long-term Anticoagulation therapy suggested INR?s ?Less Intensive Anticoagulation? 2.0 ? 3.0Conventional Range 3.0 ? 4.5 Performed By: #### 2 049427, 3166704, 54986969, 9678378, 2153864, 20629447, 4055407, 6577421, 28281273, 66695307 ####[facility] [address] [place] [address] Prothrombin time (PT) Coag time (PPP) 11.5 second(s) Normal 10.2-12.9 [facility] Comment on above: Performed By: #### 2 446990, 8487198, 55595794, 0261121, 5578681, 25238574, 4509609, 0404333, 21281859, 56621628 ####[facility] [address] [place] [address] Progress Note-Physicianon Protein mass conc Patient: Trudy RIOS Age: 37 years Sex: Female : 1980 Associated Diagnoses: None Author: Shaquille Masters DO, Robi Lindsey Preoperative Information Anesthesia history: Patient history: No prior anesthesia problems. Re-evaluation prior to induction: Completed, Initial evaluation reviewed. Review of Systems Respiratory: No shortness of breath. Cardiovascular: No chest pain. Health Status Allergies: Allergic Reactions (All)Severity Not DocumentedAmoxicillin- Rash.Bactrim- Rash.Mefoxin- Rash. Current medications: (Selected) Inpatient MedicationsOrderedCoreg 25 mg Tab: 25 mg = 1 tab(s), Tab, Oral, Daily, Routine, Start date 10/05/17 9:00:00 EDTD5/0.45% NaCl w/20 KCl 1000 mL Soln-IV 1,000 mL: 1,000 mL, IV, 50 mL/hr, Routine, Start date 10/05/17 4:18:00 EDT, 20 hour(s), Total volume (mL): 1,000Phenergan 25 mg/mL Injection: 12.5 mg = 0.5 mL, Injection, IV Push, q6hr PRN Nausea, Routine, Start date 10/05/17 4:18:00 EDTZofran 4 mg/2 mL Injection: 4 mg = 2 mL, Injection, IV Push, q6hr PRN Nausea, Routine, Start date 10/05/17 4:18:00 EDTclonazepam 1 mg Tab: 1 mg = 1 tab(s), Tab, Oral, TID PRN Anxiety, Routine, Start date 10/05/17 4:30:00 EDTheparin 5000 units/mL Inj: 5,000 unit(s) = 1 mL, Injection, SubCutaneous, BID, Routine, Start date 10/05/17 9:00:00 EDTnicotine 7 mg/24 hr Transderm ER Film: 7 mg, 1 patch(es), Patch-ER, TransDermal, Daily, Routine, Start date 10/05/17 4:29:00 EDTpantoprazole 40 mg IV Inj: 40 mg = 10 mL, Injection, IV Push, Daily, Routine, Start date 10/06/17 9:00:00 EDTvenlafaxine: 75 mg = 2 tab(s), Tab, Oral, Daily, Routine, Start date 10/05/17 9:00:00 EDTDocumented MedicationsDocumentedCoreg 25 mg Tab: 25 mg = 1 tab(s), Oral, Daily, Refills(s) 0Lasix 20 mg Tab: 20 mg = 1 tab(s), Oral, BID, Refills(s) 0clonazepam 1 mg Tab: 1 mg = 1 tab(s), Oral, TID, PRN Anxiety, Refills(s) 0venlafaxine 75 mg Tab: 75 mg = 1 tab(s), Oral, Daily, Refills(s) 0 Problem list: All ProblemsCardiomyopathy / SNOMED CT 973608645 / ConfirmedCHF - Congestive heart failure / SNOMED CT 019838739 / ConfirmedPulmonary embolism / SNOMED CT 78958883 / ConfirmedSmoker / SNOMED CT 029388091 / ConfirmedAdded secondary to documentation in Social History. Histories Past Medical History: ActivePulmonary embolism (00313326): Onset in 2008 at 28 years.CHF - Congestive heart failure (931412740)Cardiomyopathy (698608856) Family History: DementiaFatherAsthmaMotherSiste rHypertensionMotherFatherClotti ng disorderFatherDiabetes mellitus type 2MotherStrokeFatherMotherAcute myocardial infarctionMotherHyperlipidemiaM otherRenal failure syndromeMotherSleep apneaMotherDepressionMotherSist er Procedure history: Implantation of automatic cardioverter/defibrillator, total system (AICD) (91294694) in 2008 at 28 Years.Cardiac pacemaker (72819975) in 2008 at 28 Years.Cholecystectomy (15837322).Gastric bypass (7359787990).Abdominal hysterectomy (485711524). delivery (5121395160).Comments:10/05/2017 02:40 - Claudia Lu RN L3hand surgery.Comments:10/05/2017 02:42 - Claudia Lu RN L2 surgeries left handExcision of tonsil (834980809). Social History Social & Psychosocial SiporcBrnrkhg44/16/2018 Risk Assessment: Denies Alcohol Use10/04/2017 Use: Current Comment: denies - 10/04/2017 22:00 - Isabel Bird RN RSubstance Abuse10/04/2017 Risk Assessment: Denies Substance HswrhZnxmqpc58/16/2018 Tobacco Use: 10 or more cigarettes (06/24/1510/04/2017 Risk Assessment: High Risk. Physical Examination Vital Signs 10/05/2017 12:50 EDT Hourly Rounding Yes 10/05/2017 11:51 EDT Hourly Rounding Yes 10/05/2017 11:44 EDT Temperature Oral 36.8 DegC Heart Rate Monitored 59 bpm LOW Respiratory Rate 16 br/min Systolic Blood Pressure 115 mmHg Diastolic Blood Pressure 72 mmHg Mean Arterial Pressure, Monitered 86 mmHg SpO2 97 % 10/05/2017 11:00 EDT Hourly Rounding Yes Promise to Return Yes 10/05/2017 10:40 EDT Hourly Rounding Yes 10/05/2017 10:19 EDT Hourly Rounding Yes 10/05/2017 09:00 EDT Hourly Rounding Yes 10/05/2017 08:14 EDT SpO2 99 % 10/05/2017 08:00 EDT Hourly Rounding Yes Promise to Return Yes 10/05/2017 07:00 EDT Hourly Rounding Yes Promise to Return Yes 10/05/2017 06:00 EDT Temperature Oral 36.5 DegC Heart Rate Monitored 60 bpm Respiratory Rate 20 br/min Systolic Blood Pressure 107 mmHg Diastolic Blood Pressure 69 mmHg Hourly Rounding Yes Promise to Return Yes SpO2 98 % 10/05/2017 04:00 EDT Hourly Rounding Yes 10/05/2017 02:11 EDT Temperature Oral 36.5 DegC Peripheral Pulse Rate 59 bpm LOW Respiratory Rate 18 br/min Systolic Blood Pressure 147 mmHg HI Diastolic Blood Pressure 96 mmHg HI SpO2 100 % 10/05/2017 02:00 EDT Hourly Rounding Yes 10/05/2017 00:56 EDT Heart Rate Monitored 60 bpm Respiratory Rate Monitored 14 br/min Systolic Blood Pressure 112 mmHg Diastolic Blood Pressure 75 mmHg Mean Arterial Pressure, Cuff 87 mmHg SpO2 98 % 10/04/2017 23:04 EDT Heart Rate Monitored 60 bpm Respiratory Rate Monitored 17 br/min Systolic Blood Pressure 135 mmHg Diastolic Blood Pressure 66 mmHg Mean Arterial Pressure, Cuff 89 mmHg SpO2 98 % 10/04/2017 22:10 EDT Heart Rate Monitored 67 bpm Respiratory Rate Monitored 21 br/min Systolic Blood Pressure 120 mmHg Diastolic Blood Pressure 60 mmHg Mean Arterial Pressure, Cuff 80 mmHg SpO2 97 % 10/04/2017 21:17 EDT Temperature Oral 36.6 DegC Peripheral Pulse Rate 61 bpm Respiratory Rate 20 br/min Systolic Blood Pressure 151 mmHg HI Diastolic Blood Pressure 76 mmHg Blood Pressure Location Right arm Mean Arterial Pressure, Cuff 101 mmHg SpO2 100 % Measurements from flowsheet : Measurements 10/05/2017 06:35 EDT Weight Measured 91.5 kg 10/05/2017 02:26 EDT Height/Length Measured 174 cm Body Mass Index Measured 30.19 kg/m2 Weight Measured 91.4 kg 10/05/2017 02:11 EDT Height/Length Measured 174 cm [place] Body Weight Calculated 65.059 kg BSA Measured 2.1 m2 Body Mass Index Measured 30.19 kg/m2 Weight Measured 91.4 kg 10/04/2017 21:17 EDT Height/Length Measured 175 cm Body Mass Index Measured 30.04 kg/m2 Weight Measured 92.0 kg Respiratory: Lungs are clear to auscultation. Cardiovascular: Normal rate, Regular rhythm. Review / Management Results review Interpretation of Outside Results Chest x-ray results Radiology results ECG interpretation Condition Plan [place] [employer] (ASA) physical status classification: Class III. Anesthetic Preoperative Plan Anesthesia: Monitored anesthesia care. Anesthetic plan, risks, benefits, and alternatives discussed with the patient and/or family. Risks discussed: nausea, vomiting, headache, sore throat, dental injury, serious complications. Patient verbalized understanding. Communication: face to face with (patient 5 minutes, Pt. educated on the importance of smoking cessation.). Normal [facility] Comment on above: Result Comment: Elec tronically Signed By: Robi Corbin Jr, DO\.br\Date and Time Signed: 10/05/17 15:33 EDT Protein mass conc Patient: Trudy RIOS Age: 37 years Sex: Female : 1980 Associated Diagnoses: None Author: Robi Corbin Jr, DO Postoperative Information Post Operative Note: Post Anesthesia Care Unit. Anesthetic utilized: Monitored anesthesia care. Health Status Allergies: Allergic Reactions (Selected)Severity Not DocumentedAmoxicillin- Rash.Bactrim- Rash.Mefoxin- Rash. Problem list: All ProblemsCardiomyopathy / SNOMED CT 601571026 / ConfirmedCHF - Congestive heart failure / SNOMED CT 972529622 / ConfirmedPulmonary embolism / SNOMED CT 44089194 / ConfirmedSmoker / SNOMED CT 241895223 / ConfirmedAdded secondary to documentation in Social History. Physical Examination Vital Signs 10/05/2017 15:25 EDT Temperature Temporal Artery 36.4 DegC Heart Rate Monitored 60 bpm Respiratory Rate Monitored 18 br/min Systolic Blood Pressure 92 mmHg Diastolic Blood Pressure 40 mmHg LOW Mean Arterial Pressure, Cuff 57 mmHg SpO2 99 % 10/05/2017 15:20 EDT Heart Rate Monitored 60 bpm bpm SpO2 99 % % 10/05/2017 15:15 EDT Heart Rate Monitored 77 bpm bpm Systolic Blood Pressure 128 mmHg mmHg Diastolic Blood Pressure 63 mmHg mmHg SpO2 100 % % 10/05/2017 15:11 EDT Systolic Blood Pressure 132 mmHg mmHg Diastolic Blood Pressure 79 mmHg mmHg 10/05/2017 14:26 EDT Heart Rate Monitored 59 bpm LOW Respiratory Rate Monitored 16 br/min Systolic Blood Pressure 122 mmHg Diastolic Blood Pressure 70 mmHg Blood Pressure Location Right arm Mean Arterial Pressure, Cuff 87 mmHg SpO2 96 % 10/05/2017 14:15 EDT Hourly Rounding Yes Nursing Progress Note Reason Other: pt to endo 10/05/2017 13:00 EDT Hourly Rounding Yes 10/05/2017 12:50 EDT Hourly Rounding Yes 10/05/2017 11:51 EDT Hourly Rounding Yes 10/05/2017 11:44 EDT Temperature Oral 36.8 DegC Heart Rate Monitored 59 bpm LOW Respiratory Rate 16 br/min Systolic Blood Pressure 115 mmHg Diastolic Blood Pressure 72 mmHg Mean Arterial Pressure, Monitered 86 mmHg SpO2 97 % 10/05/2017 11:00 EDT Hourly Rounding Yes Promise to Return Yes 10/05/2017 10:40 EDT Hourly Rounding Yes 10/05/2017 10:19 EDT Hourly Rounding Yes 10/05/2017 09:00 EDT Hourly Rounding Yes 10/05/2017 08:14 EDT SpO2 99 % 10/05/2017 08:00 EDT Hourly Rounding Yes Promise to Return Yes 10/05/2017 07:00 EDT Hourly Rounding Yes Promise to Return Yes 10/05/2017 06:00 EDT Temperature Oral 36.5 DegC Heart Rate Monitored 60 bpm Respiratory Rate 20 br/min Systolic Blood Pressure 107 mmHg Diastolic Blood Pressure 69 mmHg Hourly Rounding Yes Promise to Return Yes SpO2 98 % 10/05/2017 04:00 EDT Hourly Rounding Yes 10/05/2017 02:11 EDT Temperature Oral 36.5 DegC Peripheral Pulse Rate 59 bpm LOW Respiratory Rate 18 br/min Systolic Blood Pressure 147 mmHg HI Diastolic Blood Pressure 96 mmHg HI SpO2 100 % 10/05/2017 02:00 EDT Hourly Rounding Yes 10/05/2017 00:56 EDT Heart Rate Monitored 60 bpm Respiratory Rate Monitored 14 br/min Systolic Blood Pressure 112 mmHg Diastolic Blood Pressure 75 mmHg Mean Arterial Pressure, Cuff 87 mmHg SpO2 98 % 10/04/2017 23:04 EDT Heart Rate Monitored 60 bpm Respiratory Rate Monitored 17 br/min Systolic Blood Pressure 135 mmHg Diastolic Blood Pressure 66 mmHg Mean Arterial Pressure, Cuff 89 mmHg SpO2 98 % 10/04/2017 22:10 EDT Heart Rate Monitored 67 bpm Respiratory Rate Monitored 21 br/min Systolic Blood Pressure 120 mmHg Diastolic Blood Pressure 60 mmHg Mean Arterial Pressure, Cuff 80 mmHg SpO2 97 % 10/04/2017 21:17 EDT Temperature Oral 36.6 DegC Peripheral Pulse Rate 61 bpm Respiratory Rate 20 br/min Systolic Blood Pressure 151 mmHg HI Diastolic Blood Pressure 76 mmHg Blood Pressure Location Right arm Mean Arterial Pressure, Cuff 101 mmHg SpO2 100 % Vitals Signs (last 24 hrs) Last Charted Minimum MaximumTemp 36.4 (OCT 05 15:25) 36.4 (OCT 05 15:25) 36.8 (OCT 05 11:44)Heart Rate 60 (OCT 05 15:25) L 59 (OCT 05 02:11) 77 (OCT 05 15:15)Resp Rate 18 (OCT 05 15:25) 14 (OCT 05 00:56) 21 (OCT 04 22:10)SBP 92 (OCT 05 15:25) 92 (OCT 05 15:25) H 151 (OCT 04 21:17)DBP L 40 (OCT 05 15:25) L 40 (OCT 05 15:25) H 96 (OCT 05 02:11)MAP 57 (OCT 05 15:25) 57 (OCT 05 15:25) 101 (OCT 04 21:17)SpO2 99 (OCT 05 15:25) 96 (OCT 05 14:26) 100 (OCT 04:17) Documented vital signs Pain assessment: Pain Assessment 10/05/2017 13:00 EDT Pain Symptoms Self Report Yes, able to self report Primary Pain Location Chest Primary Pain Laterality Left Primary Pain Quality Aching, Pressure Patient Preferred Pain Tool Numeric rating Numeric Pain Scale 5 = Moderate pain Numeric Pain Score 5 10/05/2017 12:50 EDT Pain Symptoms Self Report Yes, able to self report Primary Pain Location Chest Primary Pain Laterality Left Primary Pain Quality Aching, Pressure Patient Preferred Pain Tool Numeric rating Numeric Pain Scale 5 = Moderate pain Numeric Pain Score 5 10/05/2017 11:51 EDT Pain Symptoms Self Report Yes, able to self report Primary Pain Location Chest Primary Pain Laterality Left Primary Pain Quality Aching, Pressure Patient Preferred Pain Tool Numeric rating Numeric Pain Scale 5 = Moderate pain Numeric Pain Score 5 10/05/2017 09:00 EDT Pain Symptoms Self Report Yes, able to self report Primary Pain Location Chest Primary Pain Laterality Left Primary Pain Quality Aching, Pressure Patient Preferred Pain Tool Numeric rating Numeric Pain Scale 5 = Moderate pain Numeric Pain Score 5 10/05/2017 06:00 EDT Pain Symptoms Self Report Yes, able to self report Primary Pain Location Chest Primary Pain Laterality Left Primary Pain Quality Pressure Numeric Pain Scale 6 Numeric Pain Score 6 Primary Pain Interventions Repositioning, Rest 10/05/2017 03:00 EDT Primary Pain Location Chest Primary Pain Laterality Left Primary Pain Radiation Yes Primary Pain Radiation Characteristics back and shoulder area Primary Pain Quality Pressure Numeric Pain Scale 6 Numeric Pain Score 6 Primary Pain Interventions Repositioning, Rest 10/04/2017 21:17 EDT Primary Pain Location Chest Primary Pain Laterality Left Primary Pain Quality Tightness, Other: Pressure Patient Preferred Pain Tool Numeric rating Numeric Pain Scale 7 Numeric Pain Score 7 . General: Alert and oriented, No acute distress. Respiratory: Lungs are clear to auscultation. Cardiovascular: Normal rate, Regular rhythm. Neurologic: Normal sensory. Review / Management Condition: Stable. Assessment Anesthetic outcome No anesthetic complications noted. Adequate pain relief. TOLERATING PO INTAKE. voiding w/o diff.. No Complaint of nausea and vomiting. Plan Transfer/ Discharge: Condition stable. Normal [facility] Comment on above: Result Comment: Elec tronically Signed By: Shaquille Masters DO, Robi Lindsey\.br\Date and Time Signed: 10/05/17 15:33 EDT Sed Rate Automatedon 018 ESR Velocity (Bld) 13 mm/h Normal 0-34 [facility] Comment on above: Performed By: #### 2 644068, 5485082, 96803770, 0274751, 1862584, 41096348, 0033748, 6644173, 58930534, 10837273 ####[facility] [address] [place] [address] TSH With T4fr Reflexon 10-05 Thyrotropin Qn 3.23 mcIU/mL Normal 0.34-5.60 [facility] Comment on above: Performed By: #### 2 439699, 4292288, 33750740, 4763889, 1163652, 84662795, 8053145, 4855915, 19997852, 12512686 ####[facility] [address] [place] [address] eGFRon 10-05-2017 GFR/1.73 sq M predicted among blacks MDRD vol rate/area (S/P/Bld) mL/min/{1.73_m2} Normal >=59 [facility] Comment on above: Order Comment: Order added by Discern Expert. Result Comment: eGFR is race adjusted. AA=. Performed By: #### 2 294557, 0919431, 42284211, 9597300, 1004041, 10317351, 5555320, 4380605, 77823032, 30472345 ####[facility] [address] [place] [address] GFR/1.73 sq M predicted among non-blacks MDRD vol rate/area (S/P/Bld) mL/min/{1.73_m2} Normal >=59 [facility] Comment on above: Order Comment: Order added by Discern Expert. Result Comment: Drilling Field Specialist nya kidney disease could be indicated at eGFR's of less than 60 mL/min/1.73m2. Kidney failure is indicated at less than 15 mL/min/1.73m2. Performed By: #### 2 425110, 8361492, 75197693, 8427943, 4546564, 37949091, 8164618, 3901867, 83450598, 08353946 ####[facility] [address] [place] [address] GFR/1.73 sq M predicted among blacks MDRD vol rate/area (S/P/Bld) mL/min/{1.73_m2} Normal >=59 [facility] Comment on above: Order Comment: Order added by Discern Expert. Result Comment: eGFR is race adjusted. AA=. Performed By: #### 2 [id number], 6809009, 71178663, 8370387, 5438470, 47504370, 7063969, 4285614, 42262018, [id number] ####[facility] [address] [place] [address] GFR/1.73 sq M predicted among non-blacks MDRD vol rate/area (S/P/Bld) mL/min/{1.73_m2} Normal >=59 [facility] Comment on above: Order Comment: Order added by Discern Expert. Result Comment: Drilling Field Specialist nya kidney disease could be indicated at eGFR's of less than 60 mL/min/1.73m2. Kidney failure is indicated at less than 15 mL/min/1.73m2. Performed By: #### 2 819191, 9480806, 45101793, 9776145, 5205331, 43065395, 3634133, 5375366, 80467457, 03812633 ####[facility] [address] [place] [address] BMPon 10-04-2017 Anion gap 3 molar conc 10 mmol/L Normal 6-16 [facility] Comment on above: Performed By: #### 2 053222, 0326923, 10890280, 6893468, 2128415, 48816295, 6256289, 7767073, 94009319, 70632104 ####[facility] [address] [place] [address] Calcium mass conc 8.5 mg/dL Low 8.9-11.1 [facility] Comment on above: Performed By: #### 2 580028, 9214425, 00446200, 9148702, 9346004, 62779088, 2404686, 0549795, 89574976, 86951085 ####[facility] [address] [place] [address] Chloride molar conc 106 mmol/L Normal 101-111 [facility] Comment on above: Performed By: #### 2 190929, 3948333, 71164870, 9772583, 7721313, 04864849, 7625320, 7315925, 63503343, 38759682 ####[facility] [address] [place] [address] CO2 molar conc 24 mmol/L Normal 21-31 [facility] Comment on above: Performed By: #### 2 958786, 0096798, 00312779, 3340789, 9747366, 42231244, 9819405, 1745463, 36898152, 09391451 ####[facility] [address] [place] [address] Glucose mass conc 99 mg/dL Normal 55-199 [facility] Comment on above: Result Comment: If t his glucose result represents a fasting glucose, interpretation should refer to the following reference range: 55-99 mg/dL Performed By: #### 2 813954, 3037760, 18454752, 5507825, 0793382, 29674666, 3867346, 5041860, 10886815, 02880737 ####[facility] [address] [place] [address] Potassium molar conc 3.3 mmol/L Low 3.5-5.3 [facility] Comment on above: Performed By: #### 2 554743, 1779169, 67491219, 4764128, 5937688, 15488743, 8769874, 2340426, 19934664, 50932360 ####[facility] [address] [place] [address] Sodium molar conc 137 mmol/L Normal 135-145 [facility] Comment on above: Performed By: #### 2 952311, 6875313, 50980050, 2976533, 8715816, 07584253, 2065740, 3945344, 01009061, 92954864 ####[facility] [address] [place] [address] Lipase Levelon 10-04-2017 Lipase enzyme act/vol 42 unit/L Normal 13-58 [facility] Comment on above: Performed By: #### 2 131654, 4202169, 10759658, 6502099, 8958861, 05297857, 5681172, 8212116, 72969843, 82605763 ####[facility] [address] [place] [address] Vital Signs Date Time Vital Sign Value Performing Clinician Facility 01-01-2023 16:110400 SaO2% (BldA) [Mass fraction] 100 % DARLING MARTINEZ [facility] Comment on above: Order Comment: Specimen Type: ARTERIAL B LOOD SPECIMENOrdering Facility: [facility] Address: [address] [place] [address] Performed By: #### A LLBG ####[facility] LABCLIA [id number] [place] [address] [place] 12-11-2022 15:17-0400 Body height 175.3 cm Neto Demarco MD Work Phone: [facility] 12-11-2022 15:17-0400 Body weight 89.81 kg Neto Demarco MD Work Phone: [facility] 12-11-2022 15:17-0400 Diastolic blood pressure 70 mm[Hg] Neto Obrien Work Phone: [facility] 12-11-2022 15:17-0400 Heart rate 60 /min Neto Demarco MD Work Phone: [facility] 12-11-2022 15:17-0400 Systolic blood pressure 111 mm[Hg] Neto Demarco MD Work Phone: [facility] Encounters Encounter Date Encounter Type Care Provider Facility Start: 03-08-2024 ambulatory [facility] Start: 12-09-2023 ambulatory [facility] Start: 12-08-2023 Encounter for preprocedural cardiovascular examination [facility] Start: 12-08-2023 ambulatory [facility] Start: 09-08-2023 End: 09-08-2023 ambulatory ROCK DUNBAR Not Available Start: 05-31-2023 End: 05-31-2023 ambulatory [facility] Start: 01-01-2023 End: 01-02-2023 ambulatory DARLING MARTINEZ Facility:[facility] Start: 12-31-2022 ambulatory Darling holland MD Work Phone: Cardiology Comment on above: Patient Education (E PS-ICD Leade Extract / Reimplant) Start: 12-30-2022 End: 12-30-2022 ambulatory DARLING MARTINEZ Facility:[facility] Start: 12-30-2022 Admission to same da surgery [place] DARLING JUAN [facility] Start: 12-30-2022 End: 12-30-2022 ambulatory DARLING WOODMERE Facility:[facility] Start: 12-30-2022 End: 12-30-2022 Admission to same day surgery [place] Anesthesia Clearance Work Phone: [facility] Work Phone: Start: 12-30-2022 End: 12-30-2022 Patient encounter procedure Anesthesia Clearance Work Phone: Cardiothoracic Comment on above: Encounter for preope rative anesthesiology assessment for cardiac surgery (Primary Dx) Start: 12-30-2022 End: 12-31-2022 ambulatory ROCK DUNBAR Facility:[facility] Start: 12-24-2022 Telephone encounter Neto resendiz MD Work Phone: Cardiology Comment on above: Received Outside [facility] Records Start: 12-23-2022 Telephone encounter Neto resendiz MD Work Phone: Cardiology Comment on above: Reschedule (OR 79 ca se) MONITOR (ALARM) Start: 12-14-2022 Telephone encounter Neto resendiz MD Work Phone: Cardiology Comment on above: Schedule Surgery (EP S- Lead Extraction and Reimplantation ) Start: 12-11-2022 End: 12-11-2022 ambulatory NETO DEMARCO Facility:[facility] Start: 12-11-2022 End: 12-11-2022 ambulatory DARLING MARTINEZ Facility:[facility] Start: 12-11-2022 Follow-up encounter Neto resendiz MD Work Phone: [facility] Start: 12-11-2022 End: 12-11-2022 Patient encounter procedure Neto Demarco MD Work Phone: [facility] Department Comment on above: ICD (implantable car dioverter-defibrillator) in place (Primary Dx); Cardiac resynchronization therapy defibrillator (DROSS PULLER-D) in place; Chronic systolic heart failure (HCC); Non-ischemic cardiomyopathy (HCC); Failure of implantable cardioverter-defibrillator (ICD) lead, initial encounter Start: 11-24-2022 Telephone encounter Neto resendiz MD Work Phone: Cardiology Comment on above: Received Outside [facility] Records (Referral & MR) Start: 09-24-2022 End: 09-24-[address] AMADOR ALICEA Facility:[facility] Start: 09-18-2022 Encounter for other preprocedural examination JASS JUNE [facility] Start: 09-16-2022 End: 09-17-2022 ambulatory JASS JUNE Facility:[facility] Start: 09-16-2022 End: 09-17-2022 Encounter for other preprocedural examination JASS JUNE Facility:[facility] Start: 08-31-2022 End: 09-01-2022 ambulatory EVELYN CALDWELL Facility:[facility] Start: 08-28-2022 End: 08-28-[address] EUFEMIA CAT . Facility:[facility] Start: 08-05-2022 End: 08-05-[address] FAZAL PARKER Facility:[facility] Start: 02-17-2022 Encounter for genera l adult medical examination without abnormal findings DR ROCK DUNBAR [facility] Start: 02-16-2022 End: 02-17-[address] ROCK DUNBAR Facility:[facility] Start: 02-16-2022 End: 02-17-2022 Encounter for general adult medical examination without abnormal findings DR ROCK DUNBAR Facility:[facility] Start: 01-25-[address] ROCK DUNBAR [facility] ity:[facility] Start: 12-13-2021 End: 12-13-[address] ABY FULLER Facility:[facility] Start: 11-18-2021 End: 11-19-2021 ambulatory SALVADOR ALEJO . Facility:[facility] Start: 11-10-2021 End: 05-23-[address] AMADOR ALICEA Facility: Start: 10-23-2021 End: 10-24-2021 ambulatory ANOOP SRIVASTAVA Facility: Start: 10-21-2021 End: 10-22-[address] EUFEMIA CAT . Facility: Start: 10-20-2021 End: 10-20-[address] FAZAL PARKER Facility: Start: 04-29-2018 End: 04-30-2018 Patient encounter procedure PROVIDER UNKNOWN Facility:[facility] Start: 03-31-2018 End: 04-01-2018 Patient encounter procedure KADE Rich SOFIA Facility:[facility] Start: 02-06-2018 End: 02-08-2018 Patient encounter [id number] [facility] Start: 01-06-2018 End: 01-06-2018 Emergency department patient visit ROCK~[id number] [facility] Start: 11-16-2017 End: 11-17-2017 Patient encounter Aguilar Goodman Facility:[facility] Start: 10-04-2017 End: 10-05-2017 Patient encounter Makayla Sage Facility:[facility] Procedures Date Procedure Procedure Detail Performing Clinician Start: 12-30-2022 Antibody screen DARLING MARTINEZ Comment on above: Order Comment: Speci men Type: BLOOD SPECIMENOrdering Facility: [facility] Address: [address] [place] [address] Performed By: #### T [id number] ####[facility] MAIN BLOOD BANKCLIA [id number] [address] [facility] Start: 12-11-2022 ICD CLINIC CHECK Neto Demarco MD Work Phone: Plan of Treatment Date Care Activity Detail Author Start: 02-19-2023 Influenza [facility] Start: 12-29-2022 End: 02-28-2023 Basic metabolic 2000 panel - Serum or Plasma BASIC METABOLIC PNL Lab Routine Failure of implantable cardioverter-defibrillator (ICD) lead, initial encounter Expected: 12/29/2022, Expires: 02/28/2023 [facility] Work Phone: Comment on above: Expected: 12/29/2022 , Expires: 02/28/2023 Start: 12-29-2022 End: 02-28-2023 CBC panel - Blood by Automated count CBC Lab Routine Failure of implantable cardioverter-defibrillator (ICD) lead, initial encounter Expected: 12/29/2022, Expires: 02/28/2023 [facility] Work Phone: Comment on above: Expected: 12/29/2022 , Expires: 02/28/2023 Start: 12-29-2022 End: 02-28-2023 CONFIRM BLOOD TYPE CONFIRM BLOOD TYPE Blood Bank Routine Failure of implantable cardioverter-defibrillator (ICD) lead, initial encounter Expected: 12/29/2022, Expires: 02/28/2023 [facility] Work Phone: Comment on above: Expected: 12/29/2022 , Expires: 02/28/2023 Start: 12-29-2022 Radiologic exam ches t 2 views XR CHEST 2V FRONTAL/LAT Radiology Routine Failure of implantable cardioverter-defibrillator (ICD) lead, initial encounter Expected: 12/29/2022 [facility] Work Phone: Comment on above: Expected: 12/29/2022 Start: 12-29-2022 End: 02-28-2023 TYPE AND SCREEN,30 DAY TYPE AND SCREEN,30 DAY Blood Bank Routine Failure of implantable cardioverter-defibrillator (ICD) lead, initial encounter Expected: 12/29/2022, Expires: 02/28/2023 [facility] Work Phone: Comment on above: Expected: 12/29/2022 , Expires: 02/28/2023 Start: 2022 Mammography MAMMOGRAM [facility] Start: 06-21-2022 DEPRESSION ASSESSMENT DEPRESSION ASS ESSMENT [facility] Start: 2012 HPV TESTING HPV TESTING [facility] Start: 08-27-2003 PAP TESTING PAP TESTING [facility] Start: 2001 Urine microalbumin profile DTAP,TDAP,TD (1 - Tdap) [facility] Start: 2000 HEPATITIS C SCREENING HEPATITIS C SC REENING [facility] Start: 2000 HIV SCREENING HIV SCREENING [facility] Start: 1988 PNEUMOCOCCAL (1 - PCV) PNEUMOCOCCAL (1 - PCV) [facility] Start: 02-26-1983 COVID-19 VACCINE (#1) COVID-19 VACCI NE (#1) [facility] Start: 1982 HEPATITIS B (1 of 3 - 3-dose series) HEPATITIS B (1 of 3 - 3-dose series) [facility] LIFEVEST LIFEVEST ECG Rou xavier ICD (implantable cardioverter-defibrillator ) in place Cardiac resynchronization therapy defibrillator (DROSS PULLER-D) in place Chronic systolic heart failure (HCC) Non-ischemic cardiomyopathy (HCC) Failure of implantable cardioverter-defibrillator (ICD) lead, initial encounter Ordered: 12/11/2022 [facility] Work Phone: Comment on above: Ordered: 12/11/2022 End: 01-10-2024 Radiologic exam chest 2 views XR CHEST 2V FRONTAL/LAT Radiology Routine ICD (implantable cardioverter-defibrillator ) in place Cardiac resynchronization therapy defibrillator (DROSS PULLER-D) in place Chronic systolic heart failure (HCC) Non-ischemic cardiomyopathy (HCC) Failure of implantable cardioverter-defibrillator (ICD) lead, initial encounter 1 Occurrences starting 12/11/2022 until 01/10/2024 [facility] Work Phone: Comment on above: 1 Occurrences starti ng 12/11/2022 until 01/10/2024 WEARABLE CARDIAC DEFIBRILLATOR (LIFEVEST / ASSURE) WEARABLE CARDIAC DEFIBRILLATOR (LIFEVEST / ASSURE) ECG Routine ICD (implantable cardioverter-defibrillator ) in place Cardiac resynchronization therapy defibrillator (DROSS PULLER-D) in place Chronic systolic heart failure (HCC) Non-ischemic cardiomyopathy (HCC) Failure of implantable cardioverter-defibrillator (ICD) lead, initial encounter Ordered: 12/11/2022 [facility] Work Phone: Comment on above: Ordered: 12/11/2022 [facility] Payers Date Payer Category Payer Medicaid [id number] 1982 Unknown [id number] 2.16.8 [id number] 1982 Unknown [id number] 2.16.8 [id number] 1982 Unknown [id number] 2.16.84 0.1.444043.3.579.2.593 1982 Unknown [id number] 2.16.84 0.1.792093.3.579.2.593 1982 Unknown [id number] 2.16.84 0.1.104571.3.579.2.593 1982 Unknown [id number] 2.16.84 0.1.590331.3.579.2.593 1982 Unknown [id number] 2.16.84 0.1.579849.3.579.2.593 1982 Unknown [id number] 2.16.84 0.1.014538.3.579.2.593 1982 Unknown [id number] 2.16.84 0.1.262351.3.579.2.593 1982 Unknown [id number] 2.16.84 0.1.578660.3.579.2.593 1982 Unknown [id number] 2.16.84 0.1.875004.3.579.2.593 1982 Unknown [id number] 2.16.84 0.1.682761.3.579.2.593 1982 Unknown [id number] 2.16.84 0.1.836608.3.579.2.593 1982 Unknown [id number] 2.16.84 0.1.186253.3.579.2.593 1982 Unknown [id number] 2.16.84 0.1.090772.3.579.2.593 1959 Self-pay [id number] 1959 Unknown [id number] Social History Date Type Detail [facility] Start: 1980 Sex Assigned At Not on file C [facility] Start: 12-11-2022 [facility] History of tobacco use Cigarette Smoker C [facility] Start: 12-11-2022 End: 12-30-2022 Cigarettes smoked current (pack per day) - Reported [address] [facility] Start: 12-11-2022 Tobacco use and exposure Smoke less tobacco non-user [facility] Start: 12-11-2022 Alcohol intake Ex-drinker (finding) [facility] Start: 1980 Sex Assigned At Female C [facility] Start: 12-11-2022 End: 12-30-2022 Tobacco use panel [facility] National Score (1-10 0), lower number is lower risk [address] [facility] Start: 12-15-2022 Gender identity Identifies as female gender (finding) [facility] Start: 12-15-2022 Sexual orientation Choose not to dis close [facility] Clinical Notes 08-05-2022 to 01-02-2023 Laurel Flores RN - 12/31/2022 4:20 PM Ki Vicente MD - 12/30/2022 12:40 PM EDTTelephone Encounter - Sharon Tanner RN - 12/25/2022 9:07 AM EDTPatient Instructions Note Date & Type Note Facility 01-02-2023 Note HNO ID: [id number] Author: Daphney Perez RN Service: Nursing Author Type: Registered Nurse Type: Nursing Progress Note Filed: 01/02/2023 1:16 PM Note Text: Patient discharged. IV taken out and patient off tele. [facility] 01-02-2023 Note HNO ID: [id number] Author: Chandan Banuelos MD Service: Cardiovascular Medicine Author Type: Fellow Type: Progress Notes Filed: 01/02/2023 10:39 AM Note Text: [facility] ELECTROPHYSIOLOGY PROGRESS NOTE Carito Rios [id number] PRIMARY SERVICE: INTERVAL HISTORY - POD#1 from device extraction and re-implantation. - No issues overnight. - Pain well controlled. PHYSICAL EXAM BP 116/58 Pulse 60 Temp 36.7 ?C (98.1 ?F) (Oral) Resp 16 Ht 175.3 cm (5' 9 ) Wt 87.1 kg (192 lb 1.6 oz) SpO2 97% BMI 28.37 kg/m? General Appearance: Comfortable. Lungs: Nonlabored breathing. Heart: Pocket without evidence of hematoma or infection. dressing in place. Skin: Warm and dry. Genitourinary: No conklin present. Neurologic/Psychiatric: Grossly intact. Appropriate affect. Groins with no bleeding or hematoma. ECG AV paced. IMAGING Chest radiograph without evidence of pneumothorax. Device and leads are in the appropriate position. DEVICE CHECK Appropriate sensing thresholds, capture thresholds, and impedance. Presenting rhythm: AP/BP Thresholds: (RV 0.5, LV 1.7, A 0.5 v) Sensing: (RV 11, LV 3 A 1.7 mv) Stable impedance (RV 430, LV 450, RA 200 ohms) ASSESSMENT AND PLAN 42 y/o female with history of NICM, HF, s/p DROSS PULLER-D (2008) with epicardial LV lead, s/p multiple generator changes (4) most recent generator change 09/21/2022, and depression. She presented to local ED 11/22/22 for device alarm and was found to have RV lead noise with oversensing. [place] to be likely due to ICD coil fracture. Now admitted for transvenous lead extraction of the RV lead. POD #1 RA/ICD lead extraction and re-implantation of new RA/ICD leads - Discharge today. - Groin suture removed Chandan Banuelos MD Electrophysiology Fellow PGY-VII P: [phone] January 02, 2023 8:22 AM [facility] 01-01-2023 Note HNO ID: [id number] Author: Aaron Mcknight MD Service: Cardiovascular Medicine Author Type: Fellow Type: Progress Notes Filed: 01/01/2023 7:15 PM Note Text: BRIEF PROCEDURE NOTE: Procedure: Transvenous lead extraction and implantation of two new leads (RA + RV) Date: January 01, 2023, 7:12 PM Primary Surgeon: Darling Martinez MD Haunted History Tour Guide: Aaron Mcknight MD Outcome: Successful Pocket: Left pectoral pocket Procedural Complications: None Estimated Blood loss: 50cc's Specimen(s) removed: Fibrotic tissue from pocket and two leads - RA and RV. Plan: - No aspirin until Wednesday the 04 of January. - Bedrest for 4 hours - Post-procedure CXR and device check have been ordered - No changes to other outpatient medications upon discharge - Remove sutures on Wednesday from right groin. Full report to follow in [facility] (Under Chart Review -> Cardiac ) Aaron Mcknight MD [facility] 01-01-2023 Note HNO ID: [id number] Author: Aby Romano APRN.TELEGRAPH PRINTER MECHANIC Service: ? Author Type: Nurse Hide And Skin Colerer Type: Anesthesia Procedure Notes Filed: 01/01/2023 2:41 PM Note Text: ANESTHESIOLOGY PROCEDURE NOTE Airway General Information Procedure Start Time/Medication Administration: 01/01/2023 1:29 PM Patient location during procedure: OR Timeout Performed Pre-procedure: timeout performed Consent Obtained: Yes Patient identity confirmed: arm band Staffing TELEGRAPH PRINTER MECHANIC: Aby Romano APRN.TELEGRAPH PRINTER MECHANIC Performed by: TRISTAN Indications and Patient Condition Indications for airway management: anesthesia and airway protection Preoxygenated: yes anesthesia circuit Patient position: sniffing Method: asleep Cricoid Pressure: Yes Final Airway Details Final airway type: endotracheal airway Final Endotracheal Airway: ETT Cuffed: yes Successful intubation technique: direct laryngoscopy Endotracheal tube insertion site: oral Blade: Myah Blade size: #4 ETT size (mm): 7.5 Measured from: gums Measurement (cm): 22 Placement verified by: chest auscultation and capnometry Cormack-Lehane Classification: grade I - full view of glottis Number of attempts at approach: 1 SIGNATURE: Aby Romano APRN.TELEGRAPH PRINTER MECHANIC PATIENT NAME: Carito Rios DATE: January 01, 2023 TIME: 2:40 PM CSN: [id number] [facility] 12-31-2022 Note HNO ID: [id number] Author: Laurel Flores RN Service: ? Author Type: Registered Nurse Type: Progress Notes Filed: 12/31/2022 4:21 PM Note Text: THE FOLLOWING WAS EVALUATED Motivation To Learn: Interested Family/Significant Other Support: Unable to assess - Family not present Cognitive Ability: Alert and oriented Patient Learns Best By: Verbal Instruction The Following Influencing Factors Were Barriers To This Education Session: None The Following Physical Limitations Were Barriers To This Education Session: None Instruction Provided To: Patient Procedure: ICD Extract AND Reimplant Pre-procedure information reviewed: Patient ID verified Procedure verified Physician verified Explanation of procedure Sedation level during procedure MD medication instructions from EP lab request: Per CTA Travel instructions/restrictions Scheduling information Possible same day discharge versus overnight hospital stay Check out time Family waiting area Physician contact with family after procedure Post Procedure Expectations reviewed: Inpatient hospital stay Post procedure antiarrhythmics and anticoagulation will be discussed with Physician, nurse practitioner or Physician maintenance assistant upon discharge Instructions for transmitting EKG to Monitoring Center 3 month follow up instructions Contact number for information and questions Patient Evaluation: Verbalizes understanding Follow Up Plan: Follow up as directed by MD. Supplemental Material Given: Written Material Patient education regarding radiation exposure. Instructed By Laurel Flores RN. In Department of CARDIOLOGY. [facility] 12-31-2022 History of Presen t illness Narrative THE FOLLOWING WAS EVALUATED Motivation To Learn: Interested Family/Significant Other Support: Unable to assess - Family not present Cognitive Ability: Alert and oriented Patient Learns Best By: Verbal Instruction The Following Influencing Factors Were Barriers To This Education Session: None The Following Physical Limitations Were Barriers To This Education Session: None Instruction Provided To: Patient Procedure: ICD Extract & Reimplant Pre-procedure information reviewed: Patient ID verified Procedure verified Physician verified Explanation of procedure Sedation level during procedure MD medication instructions from EP lab request: Per CTA Travel instructions/restrictions Scheduling information Possible same day discharge versus overnight hospital stay Check out time Family waiting area Physician contact with family after procedure Post Procedure Expectations reviewed: Inpatient hospital stay Post procedure antiarrhythmics and anticoagulation will be discussed with Physician, nurse practitioner or Physician maintenance assistant upon discharge Instructions for transmitting EKG to [facility] 3 month follow up instructions Contact number for information and questions Patient Evaluation: Verbalizes understanding Follow Up Plan: Follow up as directed by MD. Supplemental Material Given: Written Material Patient education regarding radiation exposure. Instructed By Laurel Flores RN. In Department of CARDIOLOGY. documented in this encounter [facility] 12-31-2022 Note Education (EPSMN) CARITO RIOS ([id number]) 1980 F Date Time Provider Department 12/31/22 MARTINEZDARLING EPSMN Reason for Visit: Patient Education [91] Cmt: EPS-ICD Leade Extract / Reimplant During your visit today, we recorded the following information about you: Allergies As of Date: 12/31/2022 Noted Allergy Reaction AMOXICILLIN 05/01/2009 2 - Rash CEFOXITIN 05/01/2009 2 - Rash SULFA (SULFONAMIDE ANTIBIOTICS) 03/24/2013 2 - Rash SULFAMETHOXAZOLE-TRIMETHOPRIM 08/11/2012 2 - Rash VANCOMYCIN 04/28/2022 2 - Rash LISINOPRIL 12/11/2022 3 - Cough MADI INHIBITORS 02/21/2013 14 - Other: See Comments 3 - Cough Date Reviewed: 12/30/2022 Reviewed by: Shelly Gilmore RN - Fully Assessed Prescriptions as of 12/31/2022 - iv contrast (will be provided with radiology test) CT Cardiac - No IV access, insert saline lock prior to the sedation, infusion, injection for imaging exam. Discontinue saline lock post exam. If Pt. has a central line or IVAD, may access for administration according to line specific nursing protocol. Once exam is complete flush line and de-access according to line specific nursing protocol in the CT contrast administration guidelines link. - ALPRAZolam (XANAX) 1 mg tablet Take 1 mg by mouth three times daily as needed. - amitriptyline (ELAVIL) 25 mg tablet TAKE 1 TABLET BY MOUTH EVERY DAY AT BEDTIME FOR 30 DAYS - aspirin, enteric coated (ASPIRIN, ENTERIC COATED) 81 mg EC tablet q 24 HR. - atorvastatin (LIPITOR) 80 mg tablet Take 80 mg by mouth. - carvedilol (COREG) 6.25 mg tablet Take 6.25 mg by mouth twice daily. - citalopram (CELEXA) 20 mg tablet Take 20 mg by mouth once daily. - gabapentin (NEURONTIN) 300 mg capsule TAKE 1 CAP AT BEDTIME ON DAY 1, THEN 1 CAP TWICE DAILY ON DAY 2, THEN 1 CAP 3 TIMES A DAY - losartan (COZAAR) 25 mg tablet Take 25 mg by mouth once daily. - OLANZapine (ZYPREXA) 5 mg tablet Take 5 mg by mouth once daily. - spironolactone (ALDACTONE) 25 mg tablet Take 12.5 mg by mouth once daily. - topiramate (TOPAMAX) 50 mg tablet Take 50 mg by mouth twice daily. Facility-Administered Medications as of 12/31/2022 - perflutren lipid microspheres 1.3 mL in NaCl (PF) 0.9% 10 mL injection (DEFINITY) - sodium chloride 0.9 % (flush) 10 mL (BD POSIFLUSH) Encounter Status:Closed by LAUREL CHAVEZ on 12/31/22 [facility] 12-30-2022 Note HNO ID: [id number] Author: Ki Mancera MD Service: ? Author Type: Fellow Type: Progress Notes Filed: 12/30/2022 12:48 PM Note Text: Cardiothoracic Anesthesiology Preoperative Assessment Service Date: 12/30/2022 Service Time: 11:47 AM Primary Care Physician: Rock Dunbar Patient Entered Data: Scheduled procedure: Lead extraction Surgeon: Darling Martinez Scheduled date: 01/01/2023 HPI: Patient is a 42yoF w/ a hx of NICM and resultant HFrEF s/p DROSS PULLER-D in 2008 c/b by recent RV lead oversensing likely due to coil fracture and inappropriate ICD shock now s/p deactivation. Patient presents today for pre-operative evaluation for the above surgery. Today we discussed the anesthetic plan, what to expect, and any questions or concerns the patient may have had. We additionally discussed perioperative medications and recommended they hold their losartan and spironolactone prior to their surgery but otherwise continue their medications as prescribed. Review no known heparin intolerance not taking anticoagulant/antiplatelet medication no non-cardiac IEDs present no known esophageal disorders blood transfusion consented -. No resulted type AND screen to review COVID-19 Immunization Status Overdue - COVID-19 VACCINE (1) Overdue - never done No completion, postpone, frequency change, or communication history exists for this topic. The patient has the following: There is no problem list on file for this patient. PAST MEDICAL HISTORY Diagnosis Date HF (heart failure) (HCC) NICM (nonischemic cardiomyopathy) (HCC) PAST SURGICAL HISTORY Procedure Laterality Date PAST SURGICAL HISTORY OF 2008 DROSS PULLER-D PAST SURGICAL HISTORY OF multiple device surgeries FAMILY HISTORY Problem Relation Age of Onset Coronary Artery Disease Mother Hypertension Mother Stroke Mother Diabetes Mother Coronary Artery Disease Father Stroke Father Diabetes Sister Diabetes Brother Social History Tobacco Use Smoking status: Every Day Packs/day: 1.00 Years: 20.00 Total pack years: 20.00 Types: Cigarettes Smokeless tobacco: Never Substance Use Topics Alcohol use: Not Currently Drug use: Never Prior to Admission medications as of 12/11/22 1529 Medication Sig Last Dose Taking iv contrast (will be provided with radiology test) CT Cardiac - No IV access, insert saline lock prior to the sedation, infusion, injection for imaging exam. Discontinue saline lock post exam. If Pt. has a central line or IVAD, may access for administration according to line specific nursing protocol. Once exam is complete flush line and de-access according to line specific nursing protocol in the CT contrast administration guidelines link. ALPRAZolam (XANAX) 1 mg tablet Take 1 mg by mouth three times daily as needed. amitriptyline (ELAVIL) 25 mg tablet TAKE 1 TABLET BY MOUTH EVERY DAY AT BEDTIME FOR 30 DAYS aspirin, enteric coated (ASPIRIN, ENTERIC COATED) 81 mg EC tablet q 24 HR. atorvastatin (LIPITOR) 80 mg tablet Take 80 mg by mouth. carvedilol (COREG) 6.25 mg tablet Take 6.25 mg by mouth twice daily. citalopram (CELEXA) 20 mg tablet Take 20 mg by mouth once daily. gabapentin (NEURONTIN) 300 mg capsule TAKE 1 CAP AT BEDTIME ON DAY 1, THEN 1 CAP TWICE DAILY ON DAY 2, THEN 1 CAP 3 TIMES A DAY losartan (COZAAR) 25 mg tablet Take 25 mg by mouth once daily. OLANZapine (ZYPREXA) 5 mg tablet Take 5 mg by mouth once daily. spironolactone (ALDACTONE) 25 mg tablet Take 12.5 mg by mouth once daily. topiramate (TOPAMAX) 50 mg tablet Take 50 mg by mouth twice daily. No medication comments found. ALLERGIES Allergen Reactions Amoxicillin Rash Cefoxitin Rash Sulfa (Sulfonamide * Rash Sulfamethoxazole-Tr* Rash Vancomycin Rash Lisinopril Cough Madi Inhibitors Other: See Comments, Cough Objective Pain Assessment: Vitals: There were no vitals taken for this visit. Diagnostic tests reviewed for today's visit: Lab Value Units Date High Low HB No results within date range. HCT No results within date range. WBC No results within date range. PLT No results within date range. NA No results within date range. K No results within date range. GLUC No results within date range. BUN No results within date range. CREAT 0.80 mg/dL 12/30/2022 1.4 0.7 PTSEC 10.3 sec 12/30/2022 13.0 9.7 INR 1.0 no uni* 12/30/2022 1.3 0.9 APTT No results within date range. ALT No results within date range. AST No results within date range. TBILI No results within date range. TSH No results within date range. Lab Value Units Date High Low HCGQT No results within date range. UHCG No results within date range. HCG, BODY* No results within date range. Lab Value Units Date High Low ABORHD No results within date range. ABSCREEN No results within date range. No results found for: HBA1C Recent Results (from the past 8760 hour(s)) ECG COMPLETE Collection Time: 12/11/22 2:12 PM I (more content not included)... [facility] 12-30-2022 Note HNO ID: [id number] Author: Shelly Gilmore RN Service: Nursing Author Type: Registered Nurse Type: Progress Notes Filed: 12/30/2022 11:30 AM Note Text: Radiology Service Progress Note DATE OF SERVICE: December 30, 2022 TIME: 11:15 AM PATIENT WEIGHT: 200 LBS PATIENT IDENTITY VERIFICATION COMPLETED USING TWO (2) STANDARD IDENTIFIERS: Name and Date of confirmed by patient verbally. FALL SCREENING: Has the patient had 2 falls in the last year or 1 fall with injury or currently using an Ambulatory Assistive Device (Walker, Cane, Wheelchair, Crutches, etc.)? No PATIENT GENDER DATA: Female. status: : No status: NO. ALLERGIES: Reviewed and unchanged CONTRAST ALLERGY: No EXAM: CT -CONTRAST INDUCED NEPHROPATHY RISK FACTORS: Congestive Heart Failure (CHF) CREATININE: Creatinine (POCT) Date Value Ref Range Status 12/30/2022 0.80 0.7 - 1.4 mg/dL Final eGFR (POCT) Date Value Ref Range Status 12/30/2022 >60 mL/min/1.73 m2 Final P.O.C.T. RESULTS: POC done: Yes, See Lab Tab December 30, 2022 TREATMENT: No Hydration needed. IV SITE: Ambulatory: A peripheral IV was started in the Left forearm with a Angio cath: 20 gauge. IV SITE APPEARANCE: Clean,Dry and Intact SIGNATURE: Shelly Gilmore RN PATIENT NAME: Carito Rios DATE: December 30, 2022 TIME: 11:15 AM [facility] 12-30-2022 Note HNO ID: [id number] Author: RT Phuc(R) Service: Radiology Author Type: Technologist Type: Progress Notes Filed: 12/30/2022 11:47 AM Note Text: Radiology Service Progress Note PATIENT NAME: Carito Rios DATE OF SERVICE: December 30, 2022 TIME: 11:46 AM PATIENT IDENTITY VERIFICATION COMPLETED USING TWO (2) IDENTIFIERS: Name and Date of confirmed by patient verbally and Name and Date of confirmed by identification band. FALL SCREENING: Has the patient had 2 falls in the last year or 1 fall with injury or currently using an Ambulatory Assistive Device (Walker, Cane, Wheelchair, Crutches, etc.)? No PATIENT GENDER DATA: Female. status: : No status: NO. PATIENT RELEVANT IMPLANT DATA REVIEWED: Yes RADIOLOGY DEPARTMENT: CT; Exam(s) Completed: CTA Cardiac PERIPHERAL IV DATA: Site assessment: Clean,Dry and Intact, Site disposition Discontinued SIGNED BY: RT Janice(R) December 30, 2022 11:46 AM [facility] 12-30-2022 Note HNO ID: [id number] Author: RT Joshua(R) Service: Radiology Author Type: Technologist Type: Progress Notes Filed: 12/30/2022 9:58 AM Note Text: Radiology Service Progress Note PATIENT NAME: Carito Rios DATE OF SERVICE: December 30, 2022 TIME: 9:57 AM PATIENT IDENTITY VERIFICATION COMPLETED USING TWO (2) IDENTIFIERS: Name and Date of confirmed by patient verbally. FALL SCREENING: Has the patient had 2 falls in the last year or 1 fall with injury or currently using an Ambulatory Assistive Device (Walker, Cane, Wheelchair, Crutches, etc.)? No PATIENT GENDER DATA: Female. status: : No status: NO. PATIENT RELEVANT IMPLANT DATA REVIEWED: Not Applicable RADIOLOGY DEPARTMENT: General X-ray: Exam(s) Completed: Chest X-Ray PERIPHERAL IV DATA: Not applicable SIGNED BY: Suad Marie RT(R) December 30, 2022 9:57 AM [facility] 12-30-2022 History of Presen t illness Narrative Cardiothoracic Anesthesiology Preoperative Assessment Service Date: 12/30/2022 Service Time: 11:47 AM Primary Care Physician: Rock Dunbar Subjective Patient Entered Data: Scheduled procedure: Lead extraction Surgeon: Darling Martinez Scheduled date: 01/01/2023 HPI: Patient is a 42yoF w/ a hx of NICM and resultant HFrEF s/p DROSS PULLER-D in 2008 c/b by recent RV lead oversensing likely due to coil fracture and inappropriate ICD shock now s/p deactivation. Patient presents today for pre-operative evaluation for the above surgery. Today we discussed the anesthetic plan, what to expect, and any questions or concerns the patient may have had. We additionally discussed perioperative medications and recommended they hold their losartan and spironolactone prior to their surgery but otherwise continue their medications as prescribed. Review no known heparin intolerance not taking anticoagulant/antiplatelet medication no non-cardiac IEDs present no known esophageal disorders blood transfusion consented -. No resulted type & screen to review COVID-19 Immunization Status Overdue - COVID-19 VACCINE (1) Overdue - never done No completion, postpone, frequency change, or communication history exists for this topic. The patient has the following: There is no problem list on file for this patient. PAST MEDICAL HISTORY Diagnosis Date HF (heart failure) (HCC) NICM (nonischemic cardiomyopathy) (HCC) PAST SURGICAL HISTORY Procedure Laterality Date PAST SURGICAL HISTORY OF 2008 DROSS PULLER-D PAST SURGICAL HISTORY OF multiple device surgeries FAMILY HISTORY Problem Relation Age of Onset Coronary Artery Disease Mother Hypertension Mother Stroke Mother Diabetes Mother Coronary Artery Disease Father Stroke Father Diabetes Sister Diabetes Brother Social History Tobacco Use Smoking status: Every Day Packs/day: 1.00 Years: 20.00 Total pack years: 20.00 Types: Cigarettes Smokeless tobacco: Never Substance Use Topics Alcohol use: Not Currently Drug use: Never Prior to Admission medications as of 12/11/22 1529 Medication Sig Last Dose Taking iv contrast (will be provided with radiology test) CT Cardiac - No IV access, insert saline lock prior to the sedation, infusion, injection for imaging exam. Discontinue saline lock post exam. If Pt. has a central line or IVAD, may access for administration according to line specific nursing protocol. Once exam is complete flush line and de-access according to line specific nursing protocol in the CT contrast administration guidelines link. ALPRAZolam (XANAX) 1 mg tablet Take 1 mg by mouth three times daily as needed. amitriptyline (ELAVIL) 25 mg tablet TAKE 1 TABLET BY MOUTH EVERY DAY AT BEDTIME FOR 30 DAYS aspirin, enteric coated (ASPIRIN, ENTERIC COATED) 81 mg EC tablet q 24 HR. atorvastatin (LIPITOR) 80 mg tablet Take 80 mg by mouth. carvedilol (COREG) 6.25 mg tablet Take 6.25 mg by mouth twice daily. citalopram (CELEXA) 20 mg tablet Take 20 mg by mouth once daily. gabapentin (NEURONTIN) 300 mg capsule TAKE 1 CAP AT BEDTIME ON DAY 1, THEN 1 CAP TWICE DAILY ON DAY 2, THEN 1 CAP 3 TIMES A DAY losartan (COZAAR) 25 mg tablet Take 25 mg by mouth once daily. OLANZapine (ZYPREXA) 5 mg tablet Take 5 mg by mouth once daily. spironolactone (ALDACTONE) 25 mg tablet Take 12.5 mg by mouth once daily. topiramate (TOPAMAX) 50 mg tablet Take 50 mg by mouth twice daily. No medication comments found. ALLERGIES Allergen Reactions Amoxicillin Rash Cefoxitin Rash Sulfa (Sulfonamide * Rash Sulfamethoxazole-Tr* Rash Vancomycin Rash Lisinopril Cough Madi Inhibitors Other: See Comments, Cough Objective Pain Assessment: Vitals: There were no vitals taken for this visit. Diagnostic tests reviewed for today's visit: Lab Value Units Date High Low HB No results within date range. HCT No results within date range. WBC No results within date range. PLT No results within date range. NA No results within date range. K No results within date range. GLUC No results within date range. BUN No results within date range. CREAT 0.80 mg/dL 12/30/2022 1.4 0.7 PTSEC 10.3 sec 12/30/2022 13.0 9.7 INR 1.0 no uni* 12/30/2022 1.3 0.9 APTT No results within date range. ALT No results within date range. AST No results within date range. TBILI No results within date range. TSH No results within date range. Lab Value Units Date High Low HCGQT No results within date range. UHCG No results within date range. HCG, BODY* No results within date range. Lab Value Units Date High Low ABORHD No results within date range. ABSCREEN No results within date range. No results found for: HBA1C Recent Results (from the past 8760 hour(s)) ECG COMPLETE Collection Time: 12/11/22 2:12 PM Impression AV DUAL-PACED RHYTHM BIVENTRICULAR PACEMAKER DETECTED ABNORMAL ECG Confirmed by MD [facility] ([id number]) on 12/14/2022 4:37:01 PM Assessment No problem-specific Assessment & Plan notes found for this encounter. ANESTHESIA FINDINGS: Intubation History: No history of difficult intubation Significant Anesthesia Considerations: none Airway History: No history of difficult airway Prepared for Surgery: optimally prepared for surgery, pending day of surgery. The Following Tests/Procedures Have Been Initiated: No orders of the defined types were placed in this encounter. ASA Class: 4 Planned Anesthetic: general I - PHYSICAL EVALUATION AIRWAY Patient intubated: No. Tracheostomy tube not present Mallampati: III. TM distance: >3 FB. Neck ROM: full ROM without neurological symptoms. Mouth opening: non-adequate. Short neck: no. Thick neck: no Lip Bite Test: I DENTAL Dentures, upper: complete. Dentures, lower: complete. II - ANESTHESIA PLAN ASA Score: 4 Anesthetic Plan: general Airway type: ETT Beta Becka Monitoring Plan Post Procedure Analgesic Plan Informed Consent Anesthetic risks, benefits, alternatives, personnel and consent discussed: yes. Patient / Responsible Democrat agrees to proceed: yes Patient / Surrogate agrees to blood products: Yes Instructions Given to Patient: Instructions located in the after visit summary. Patient given verbal and written preop instructions and voices comprehension and compliance. Signature: Ki Mancera MD Patient Name: Carito Rios Date: December 30, 2022 Time: 11:47 AM Pager/Contact #: documented in this encounter [facility] 12-25-[address] Demarco reviewed tracings from [email or web address]. Mostly noise/artifact. No changes prior to procedure next week. Left detailed message on patient VM. Sharon Tanner RN Outside medical records scanned into [employer] [address]. Patient scheduled for procedure with Dr. Darling Martinez on January 01, 2023. documented in this encounter [facility] 12-23-2022 Miscellaneous Notes Aaron with [employer] is returning a call from [phone]. For Phoebe. Marianna Wong December 23, 2022 Patient Contact Number: [phone] (home) [phone] (cell) Patient last seen within the last year: Yes Reason for Call: Device Issue: PLEASE ROUTE TO DEVICE CLINIC POOL Patient called in and states the monitor has been alarming (at work almost 25 times during the day). She contacted the monitor company and they advised that the machine is fine so the alarm is due to her heart. Please contact [facility]. Thank you, Oleksandr Wood documented in this encounter [facility] 12-23-[address] Demarco, patient needs to have OR 79 appointment rescheduled to a sooner date with one of his colleagues due to getting multiple alarms per day from her [employer]. The new date of 01-01-[address] Martinez was offered & accepted by patient. Needs all OR 79 appointments as per protocol. documented in this encounter [facility] 12-14-2022 Miscellaneous Notes Patient offered and accepted date of 01/28/[address] Demarco. Please schedule pre-op appointments per OR 79 protocol. Irena Roth RN ----- Message from Neto Demarco MD sent at 12/11/2022 4:16 PM EDT ----- EP LAB OR EXTRACTION EPS Lab REQUEST: OR 79 Lead Extraction PATIENT NAME: Carito Rios REQUESTED BY: Neto Demarco MD Phone: N/A Fax: REQUESTING PHYSICIAN: Neto Demarco M.D. PROCEDURE PHYSICIAN: Neto Demarco M.D. PROCEDURE REQUESTED: OR 79 Extraction PATIENT LOCATION: outpatient DX FOR PROCEDURE: Lead dysfunction DEVICE:[place] MEDICATIONS:none (List medications to be held & how many days prior to procedure) OUTSIDE RECORDS: none enter date uploaded to [employer] & scanned AMBULATORY TESTING: OPD consult w/EP Doctor if not seen within 30 days of procedure date. OPD consult w/Cardiothoracic doctor: TBA Anesthesia Clearance Device check EKG (Last EKG > 30 days) Chest X-ray (Last CXR > [address]) [address] Scan w IVCON Echo (Last echo > 2 years) Labs (If > 30 days: CBC, CMP, 30 day type & screen, confirm blood type, PT/INR) COMMENTS: WCD, Broken ICD lead, needs extraction and replacement. documented in this encounter [facility] 12-11-2022 Miscellaneous Notes Addended by: NETO DEMARCO on: 12/11/2022 04:57 PM Modules accepted: Orders documented in this encounter [facility] 12-11-2022 Note HNO ID: [id number] Author: Neto Demarco MD Service: ? Author Type: Physician Type: Progress Notes Filed: 12/11/2022 4:12 PM Note Text: [facility] Department of Cardiovascular Medicine SECTION OF CARDIAC PACING and ELECTROPHYSIOLOGY OUTPATIENT VISIT DATE December 11, 2022 OUTPATIENT VISIT TYPE NEW PRIMARY CARE PHYSICIAN: Rock Menjivare, [place] Can Cleaner MD Navya Hanson, [place] CHIEF COMPLAINT: BiV ICD, ICD lead failure HISTORY OF PRESENT ILLNESS: Carito Rios is a 42 y/o female who presents for evaluation for lead malfunction. She has a history of NICM (iman LVEF reportedly 15% 2008), HF, s/p DROSS PULLER-D (2008), s/p multiple generator changes (4) most recent generator change 09/21/2022, and depression. She had recovery of her EF to 50-55% in 2014. Last Echo 08/31/22 EF=45-50%. She reports she was on amiodarone in the past for an irregular heart beat. She has not been on for the last 2 years. She presented to local ED 11/22/22 for device alarm and was found to have RV lead noise with oversensing. [place] to be likely due to ICD coil fracture. [facility]. On 12/05/22 she received an inappropriate shock and her ICD therapies were turned off. She reports she had never been shocked prior to this. She reports she has been feeling very bad for weeks. She is overly fatigued and sluggish. She feels like there is a weight on her chest. She is back to having shortness of breath with exertion. She endorses lightheadedness with positional changes. She reports her device site has been tender and felt tight since her generator change. She had increased swelling after this change. She denies palpitations or syncope. PAST MEDICAL HISTORY Diagnosis Date HF (heart failure) (HCC) NICM (nonischemic cardiomyopathy) (HCC) PAST SURGICAL HISTORY Procedure Laterality Date PAST SURGICAL HISTORY OF 2009 DROSS PULLER-D PAST SURGICAL HISTORY OF multiple device surgeries SOCIAL HISTORY Social History Tobacco Use Smoking status: Every Day Packs/day: 1.00 Years: 20.00 Pack years: 20.00 Types: Cigarettes Smokeless tobacco: Never Substance Use Topics Alcohol use: Not Currently Drug use: Never FAMILY HISTORY Problem Relation Age of Onset Coronary Artery Disease Mother Hypertension Mother Stroke Mother Diabetes Mother Coronary Artery Disease Father Stroke Father Diabetes Sister Diabetes Brother ALLERGIES: ALLERGIES Allergen Reactions Amoxicillin Rash Cefoxitin Rash Sulfa (Sulfonamide * Rash Sulfamethoxazole-Tr* Rash Vancomycin Rash Lisinopril Cough Madi Inhibitors Other: See Comments, Cough MEDICATIONS: ALPRAZolam (XANAX) 1 mg tablet Take 1 mg by mouth three times daily as needed. amitriptyline (ELAVIL) 25 mg tablet TAKE 1 TABLET BY MOUTH EVERY DAY AT BEDTIME FOR 30 DAYS aspirin, enteric coated (ASPIRIN, ENTERIC COATED) 81 mg EC tablet q 24 HR. atorvastatin (LIPITOR) 80 mg tablet Take 80 mg by mouth. carvedilol (COREG) 6.25 mg tablet Take 6.25 mg by mouth twice daily. citalopram (CELEXA) 20 mg tablet Take 20 mg by mouth once daily. gabapentin (NEURONTIN) 300 mg capsule TAKE 1 CAP AT BEDTIME ON DAY 1, THEN 1 CAP TWICE DAILY ON DAY 2, THEN 1 CAP 3 TIMES A DAY losartan (COZAAR) 25 mg tablet Take 25 mg by mouth once daily. OLANZapine (ZYPREXA) 5 mg tablet Take 5 mg by mouth once daily. spironolactone (ALDACTONE) 25 mg tablet Take 12.5 mg by mouth once daily. topiramate (TOPAMAX) 50 mg tablet Take 50 mg by mouth twice daily. REVIEW OF SYSTEMS: General, constitutional: Weight loss or gain- No, Fever or chills-No, Weakness-No, Trouble sleeping-No. Head, Eyes, Ears, Mouth: Headache, head injury-yes, Glasses or contact lenses-yes, Pain-No, Impaired vision-No, Decreased hearing-No, Ringing in ears-No, Nose bleeds-No, Dental difficulties-No, Bleeding gums-No, Dentures-yes. Neck: Swelling-No, Pain-No, Stiffness-No. Respiratory: Cough-No, Spitting up blood-No, Shortness of breath-yes, Wheezing or asthma-No. Musculoskeletal: Muscle or joint pain or stiffness-No, Joint swelling-No. Gastrointestinal: Difficulty swallowing-No, Heartburn-No, Change in bowel habits-No, Blood in stool, Dark black stools-No. Neurological/Psychiatric: Weakness, paralysis-No, Numbness-No, Tingling-No, Tremor-No, Nervousness or anxiety-yes, Depressed mood-yes, Memory loss-No. Skin: Rash-No, Itching-No. Hematological: Easy bruising-No, Easy bleeding-No. Endocrine: Heat or cold intolerance-No, Excessive sweating-No, Frequent urination-No, Frequent thirst-No. Sharon Tanner RN I have personally obtained or confirmed the work performed by ancillary clinical staff as described above and edited as necessary. PHYSICAL EXAMINATION: BP 111/70 Pulse 60 Ht 175.3 cm (5' 9 ) Wt 89.8 kg (198 lb) BMI 29.24 kg/m? General appearance: Normal, Normal General Exam Skin: Skin co (more content not included)... [facility] 12-11-2022 Instructions Neto Demarco MD - 12/11/2022 4:10 PM EDT Images from the original note were not included. [facility] Department of Cardiovascular Medicine SECTION OF CARDIAC PACING and ELECTROPHYSIOLOGY OUTPATIENT VISIT DATE December 11, 2022 OUTPATIENT VISIT TYPE NEW PRIMARY CARE PHYSICIAN: Rock Dunbar MD [place], [place] Can Cleaner Jass June MD [place], [place] CHIEF COMPLAINT: BiV ICD, ICD lead failure HISTORY OF PRESENT ILLNESS: Carito Rios is a 42 y/o female who presents for evaluation for lead malfunction. She has a history of NICM (iman LVEF reportedly 15% 2008), HF, s/p DROSS PULLER-D (2008), s/p multiple generator changes (4) most recent generator change 09/21/2022, and depression. She had recovery of her EF to 50-55% in 2014. Last Echo 08/31/22 EF=45-50%. She reports she was on amiodarone in the past for an irregular heart beat. She has not been on for the last 2 years. She presented to local ED 11/22/22 for device alarm and was found to have RV lead noise with oversensing. [place] to be likely due to ICD coil fracture. She was sent home with plant for follow up. On 12/05/22 she received an inappropriate shock and her ICD therapies were turned off. She reports she had never been shocked prior to this. She reports she has been feeling very bad for weeks. She is overly fatigued and sluggish. She feels like there is a weight on her chest. She is back to having shortness of breath with exertion. She endorses lightheadedness with positional changes. She reports her device site has been tender and felt tight since her generator change. She had increased swelling after this change. She denies palpitations or syncope. PAST MEDICAL HISTORY Diagnosis Date HF (heart failure) ([facility]) NICM (nonischemic cardiomyopathy) ([facility]) PAST SURGICAL HISTORY Procedure Laterality Date PAST SURGICAL HISTORY OF 2008 DROSS PULLER-D PAST SURGICAL HISTORY OF multiple device surgeries SOCIAL HISTORY Social History Tobacco Use Smoking status: Every Day Packs/day: 1.00 Years: 20.00 Pack years: 20.00 Types: Cigarettes Smokeless tobacco: Never Substance Use Topics Alcohol use: Not Currently Drug use: Never FAMILY HISTORY Problem Relation Age of Onset Coronary Artery Disease Mother Hypertension Mother Stroke Mother Diabetes Mother Coronary Artery Disease Father Stroke Father Diabetes Sister Diabetes Brother ALLERGIES: ALLERGIES Allergen Reactions Amoxicillin Rash Cefoxitin Rash Sulfa (Sulfonamide * Rash Sulfamethoxazole-Tr* Rash Vancomycin Rash Lisinopril Cough Madi Inhibitors Other: See Comments, Cough MEDICATIONS: ALPRAZolam (XANAX) 1 mg tablet Take 1 mg by mouth three times daily as needed. amitriptyline (ELAVIL) 25 mg tablet TAKE 1 TABLET BY MOUTH EVERY DAY AT BEDTIME FOR 30 DAYS aspirin, enteric coated (ASPIRIN, ENTERIC COATED) 81 mg EC tablet q 24 HR. atorvastatin (LIPITOR) 80 mg tablet Take 80 mg by mouth. carvedilol (COREG) 6.25 mg tablet Take 6.25 mg by mouth twice daily. citalopram (CELEXA) 20 mg tablet Take 20 mg by mouth once daily. gabapentin (NEURONTIN) 300 mg capsule TAKE 1 CAP AT BEDTIME ON DAY 1, THEN 1 CAP TWICE DAILY ON DAY 2, THEN 1 CAP 3 TIMES A DAY losartan (COZAAR) 25 mg tablet Take 25 mg by mouth once daily. OLANZapine (ZYPREXA) 5 mg tablet Take 5 mg by mouth once daily. spironolactone (ALDACTONE) 25 mg tablet Take 12.5 mg by mouth once daily. topiramate (TOPAMAX) 50 mg tablet Take 50 mg by mouth twice daily. REVIEW OF SYSTEMS: General, constitutional: Weight loss or gain- No, Fever or chills-No, Weakness-No, Trouble sleeping-No. Head, Eyes, Ears, Mouth: Headache, head injury-yes, Glasses or contact lenses-yes, Pain-No, Impaired vision-No, Decreased hearing-No, Ringing in ears-No, Nose bleeds-No, Dental difficulties-No, Bleeding gums-No, Dentures-yes. Neck: Swelling-No, Pain-No, Stiffness-No. Respiratory: Cough-No, Spitting up blood-No, Shortness of breath-yes, Wheezing or asthma-No. Musculoskeletal: Muscle or joint pain or stiffness-No, Joint swelling-No. Gastrointestinal: Difficulty swallowing-No, Heartburn-No, Change in bowel habits-No, Blood in stool, Dark black stools-No. Neurological/Psychiatric: Weakness, paralysis-No, Numbness-No, Tingling-No, Tremor-No, Nervousness or anxiety-yes, Depressed mood-yes, Memory loss-No. Skin: Rash-No, Itching-No. Hematological: Easy bruising-No, Easy bleeding-No. Endocrine: Heat or cold intolerance-No, Excessive sweating-No, Frequent urination-No, Frequent thirst-No. Sharon Tanner RN I have personally obtained or confirmed the work performed by ancillary clinical staff as described above and edited as necessary. PHYSICAL EXAMINATION: BP 111/70 Pulse 60 Ht 175.3 cm (5' 9 ) Wt 89.8 kg (198 lb) BMI 29.24 kg/m General appearance: Normal, Normal General Exam Skin: Skin color, texture, turgor normal. No rashes or lesions. Head: Normal ICD on left side, well healed without evidence of venous collaterals, inflammation, erythema, tenderness, swelling or infection. Neck: Neck supple, no adenopathy; thyroid symmetric, normal size Lungs: Percussion normal. Good diaphragmatic excursion. Lungs clear to auscultation. Heart: PMI normal; normal rate, regular rhythm; normal heart sounds Abdomen: Abdomen soft, non-tender. BS normal. No masses, organomegaly Extremities: Normal exam of the extremities Neuro: Gait normal. CARDIOVASCULAR MEDICINE TESTING: DROSS PULLER-D EVALUATION 12/11/2022 ICD THERPAIES FOUND PROGRAMMED OFF. Per patient on 11/22/22 she went to local ER and was informed of lead noise . She was sent home and told to follow up with MD. On 11/23/22 her doctor told her he was referring her to [facility] and that she did not have any restrictions. On 12/05/22 patient received an inappropriate ICD shock and the ICD therapies were programmed off at that time. Patient was not given a life vest to wear. PRESENTS FOR: OPD with Dr. Demarco PRESENTING EGM: /BIV paced UNDERLYING RHYTHM: Sinus Rhythm BATTERY STATUS: Estimated time remaining to MIKAELA is 3.5-4.2 years. COUNTERS SINCE: 12/07/22 (limited diagnostics and episode storage, local rep did a hard clear of the data/episodes) ATRIAL ARRHYTHMIAS: There were 2 AMS detections, EGMs show far field oversensing, not true AT/AF, however RV lead noise is noted on stored EGM. Total time 0%. VENTRICULAR ARRHYTHMIAS: None available for review. LEAD MEASUREMENTS: Capture and sensing are appropriate. RV and LV auto capture remains on and stable. The pacing outputs maintain safety margin. Review of the lead impedance trends are normal with the exception of recent intermittent elevated RV pacing impedance measurements, specifically noted 1375 ohms on 12/05/22. Measured stable at 360 ohms today. IMPLANT SITE/ SYMPTOMS: The incision and pocket are tender (2-3/10), healed and without signs of erosion. Patient reported since change out on 09/21/22 it has felt uncomfortable and tight . OTHER DIAGNOSTICS: RA pacing 30%, Total BIV pacing 90%. PVCs 5.6% PROGRAMMING CHANGES MADE TODAY: None. FOLLOW UP: Locally. Colette Hinojosa RN Outside Testing EP Procedure 09/21/2022 PROCEDURAL DETAILS: Patient was placed in supine position and I decided to proceed with opening of the pocket. Local infiltration of 1% Lidocaine was performed, and an incision was created in the left upper chest over the previous incision scar. Dissection was then performed using cautery down to the capsule of the previously implanted pacemaker device. There was significant scarring which required a lot of dissection. Capsulotomy was performed and the old leads were freed from the capsule and the device was exteriorized. Once the lead was freed after dissection, unhealthy tissue was removed. Since the leads were very superficial, I decided to dissect till the fascia was seen above the muscle. A pocket was created to accommodate the device. The leads were then attached to a new Pugh/ [employer] [place] DROSS PULLER-D generator and the leads tug tested. Pocket hemostasis was ensured and it was then copiously and vigorously irrigated with antibiotic solution. The leads were wrapped under the device and the device was placed in the pocket and tacked to underlying muscle. The pocket was closed in layers: subcutaneous layer using 2-0 Vicryl and subcuticular using 3-0 Biosyn absorbable monofilament suture. Glue was applied and dressing was placed on top. Lead parameters were then rechecked through the device as noted below. Echo 2011 I have personally reviewed the Electrocardiogram and Device Check. IMPRESSION: Ms. Rios is a 42 year old female with non ischemic cardiomyopathy, which responded to BiV ICD/time but has largely not been taking GDMT due to poor toleration of meds. The patient's BiV ICD was inserted in 2008 for LVEF of 15%, lost a lot of weight about 2013, Now after device change on 09/21/22 has ICD lead noise and device ICD therapy disabled on December 05. The patient has not had a clinical shock but had an inappropriate shock prior to disabling the therapies. The patient is not taking Norvasc, Coreg, Spironolactone due to nausea and lightheadedness. Most recent echo (August 2022) is reported as having an LVEF of 45-50%. After discussion agreed that wants ICD therapy, that would have extraction and replacement of the ICD lead and would agree to wear the WCD. PLAN AND RECOMMENDATIONS: CXR today, Schedule for echo and OR 79 extraction and replacement of ICD lead (Durata). Set up for WCD until able to schedule for procedure. I personally interviewed, confirmed and edited the above information as obtained by others. [place] [id number] December 11, 2022 3:35 PM documented in this encounter [facility] 12-11-2022 History of Presen t illness Narrative Images from the original note were not included. [facility] Department of Cardiovascular Medicine SECTION OF CARDIAC PACING and ELECTROPHYSIOLOGY OUTPATIENT VISIT DATE December 11, 2022 OUTPATIENT VISIT TYPE NEW PRIMARY CARE PHYSICIAN: Rock Dunbar MD [place], [place] Can Cleaner Jass June MD [place], [place] CHIEF COMPLAINT: BiV ICD, ICD lead failure HISTORY OF PRESENT ILLNESS: Carito Rios is a 42 y/o female who presents for evaluation for lead malfunction. She has a history of NICM (iman LVEF reportedly 15% 2008), HF, s/p DROSS PULLER-D (2008), s/p multiple generator changes (4) most recent generator change 09/21/2022, and depression. She had recovery of her EF to 50-55% in 2014. Last Echo 08/31/22 EF=45-50%. She reports she was on amiodarone in the past for an irregular heart beat. She has not been on for the last 2 years. She presented to local ED 11/22/22 for device alarm and was found to have RV lead noise with oversensing. [place] to be likely due to ICD coil fracture. She was sent home with plant for follow up. On 12/05/22 she received an inappropriate shock and her ICD therapies were turned off. She reports she had never been shocked prior to this. She reports she has been feeling very bad for weeks. She is overly fatigued and sluggish. She feels like there is a weight on her chest. She is back to having shortness of breath with exertion. She endorses lightheadedness with positional changes. She reports her device site has been tender and felt tight since her generator change. She had increased swelling after this change. She denies palpitations or syncope. PAST MEDICAL HISTORY Diagnosis Date HF (heart failure) ([facility]) NICM (nonischemic cardiomyopathy) ([facility]) PAST SURGICAL HISTORY Procedure Laterality Date PAST SURGICAL HISTORY OF 2008 DROSS PULLER-D PAST SURGICAL HISTORY OF multiple device surgeries SOCIAL HISTORY Social History Tobacco Use Smoking status: Every Day Packs/day: 1.00 Years: 20.00 Pack years: 20.00 Types: Cigarettes Smokeless tobacco: Never Substance Use Topics Alcohol use: Not Currently Drug use: Never FAMILY HISTORY Problem Relation Age of Onset Coronary Artery Disease Mother Hypertension Mother Stroke Mother Diabetes Mother Coronary Artery Disease Father Stroke Father Diabetes Sister Diabetes Brother ALLERGIES: ALLERGIES Allergen Reactions Amoxicillin Rash Cefoxitin Rash Sulfa (Sulfonamide * Rash Sulfamethoxazole-Tr* Rash Vancomycin Rash Lisinopril Cough Madi Inhibitors Other: See Comments, Cough MEDICATIONS: ALPRAZolam (XANAX) 1 mg tablet Take 1 mg by mouth three times daily as needed. amitriptyline (ELAVIL) 25 mg tablet TAKE 1 TABLET BY MOUTH EVERY DAY AT BEDTIME FOR 30 DAYS aspirin, enteric coated (ASPIRIN, ENTERIC COATED) 81 mg EC tablet q 24 HR. atorvastatin (LIPITOR) 80 mg tablet Take 80 mg by mouth. carvedilol (COREG) 6.25 mg tablet Take 6.25 mg by mouth twice daily. citalopram (CELEXA) 20 mg tablet Take 20 mg by mouth once daily. gabapentin (NEURONTIN) 300 mg capsule TAKE 1 CAP AT BEDTIME ON DAY 1, THEN 1 CAP TWICE DAILY ON DAY 2, THEN 1 CAP 3 TIMES A DAY losartan (COZAAR) 25 mg tablet Take 25 mg by mouth once daily. OLANZapine (ZYPREXA) 5 mg tablet Take 5 mg by mouth once daily. spironolactone (ALDACTONE) 25 mg tablet Take 12.5 mg by mouth once daily. topiramate (TOPAMAX) 50 mg tablet Take 50 mg by mouth twice daily. REVIEW OF SYSTEMS: General, constitutional: Weight loss or gain- No, Fever or chills-No, Weakness-No, Trouble sleeping-No. Head, Eyes, Ears, Mouth: Headache, head injury-yes, Glasses or contact lenses-yes, Pain-No, Impaired vision-No, Decreased hearing-No, Ringing in ears-No, Nose bleeds-No, Dental difficulties-No, Bleeding gums-No, Dentures-yes. Neck: Swelling-No, Pain-No, Stiffness-No. Respiratory: Cough-No, Spitting up blood-No, Shortness of breath-yes, Wheezing or asthma-No. Musculoskeletal: Muscle or joint pain or stiffness-No, Joint swelling-No. Gastrointestinal: Difficulty swallowing-No, Heartburn-No, Change in bowel habits-No, Blood in stool, Dark black stools-No. Neurological/Psychiatric: Weakness, paralysis-No, Numbness-No, Tingling-No, Tremor-No, Nervousness or anxiety-yes, Depressed mood-yes, Memory loss-No. Skin: Rash-No, Itching-No. Hematological: Easy bruising-No, Easy bleeding-No. Endocrine: Heat or cold intolerance-No, Excessive sweating-No, Frequent urination-No, Frequent thirst-No. Sharon Tanner RN I have personally obtained or confirmed the work performed by ancillary clinical staff as described above and edited as necessary. PHYSICAL EXAMINATION: BP 111/70 Pulse 60 Ht 175.3 cm (5' 9 ) Wt 89.8 kg (198 lb) BMI 29.24 kg/m General appearance: Normal, Normal General Exam Skin: Skin color, texture, turgor normal. No rashes or lesions. Head: Normal ICD on left side, well healed without evidence of venous collaterals, inflammation, erythema, tenderness, swelling or infection. Neck: Neck supple, no adenopathy; thyroid symmetric, normal size Lungs: Percussion normal. Good diaphragmatic excursion. Lungs clear to auscultation. Heart: PMI normal; normal rate, regular rhythm; normal heart sounds Abdomen: Abdomen soft, non-tender. BS normal. No masses, organomegaly Extremities: Normal exam of the extremities Neuro: Gait normal. CARDIOVASCULAR MEDICINE TESTING: DROSS PULLER-D EVALUATION 12/11/2022 ICD THERPAIES FOUND PROGRAMMED OFF. Per patient on 11/22/22 she went to local ER and was informed of lead noise . She was sent home and told to follow up with MD. On 11/23/22 her doctor told her he was referring her to [facility] and that she did not have any restrictions. On 12/05/22 patient received an inappropriate ICD shock and the ICD therapies were programmed off at that time. Patient was not given a life vest to wear. PRESENTS FOR: OPD with Dr. Demarco PRESENTING EGM: /BIV paced UNDERLYING RHYTHM: Sinus Rhythm BATTERY STATUS: Estimated time remaining to [place] is 3.5-4.2 years. COUNTERS SINCE: 12/07/22 (limited diagnostics and episode storage, local rep did a hard clear of the data/episodes) ATRIAL ARRHYTHMIAS: There were 2 AMS detections, EGMs show far field oversensing, not true AT/AF, however RV lead noise is noted on stored EGM. Total time 0%. VENTRICULAR ARRHYTHMIAS: None available for review. LEAD MEASUREMENTS: Capture and sensing are appropriate. RV and LV auto capture remains on and stable. The pacing outputs maintain safety margin. Review of the lead impedance trends are normal with the exception of recent intermittent elevated RV pacing impedance measurements, specifically noted 1375 ohms on 12/05/22. Measured stable at 360 ohms today. IMPLANT SITE/ SYMPTOMS: The incision and pocket are tender (2-3/10), healed and without signs of erosion. Patient reported since change out on 09/21/22 it has felt uncomfortable and tight . OTHER DIAGNOSTICS: RA pacing 30%, Total BIV pacing 90%. PVCs 5.6% PROGRAMMING CHANGES MADE TODAY: None. FOLLOW UP: Locally. Colette Hinojosa RN Outside Testing EP Procedure 09/21/2022 PROCEDURAL DETAILS: Patient was placed in supine position and I decided to proceed with opening of the pocket. Local infiltration of 1% Lidocaine was performed, and an incision was created in the left upper chest over the previous incision scar. Dissection was then performed using cautery down to the capsule of the previously implanted pacemaker device. There was significant scarring which required a lot of dissection. Capsulotomy was performed and the old leads were freed from the capsule and the device was exteriorized. Once the lead was freed after dissection, unhealthy tissue was removed. Since the leads were very superficial, I decided to dissect till the fascia was seen above the muscle. A pocket was created to accommodate the device. The leads were then attached to a new Pugh/ [employer] [place] DROSS PULLER-D generator and the leads tug tested. Pocket hemostasis was ensured and it was then copiously and vigorously irrigated with antibiotic solution. The leads were wrapped under the device and the device was placed in the pocket and tacked to underlying muscle. The pocket was closed in layers: subcutaneous layer using 2-0 Vicryl and subcuticular using 3-0 Biosyn absorbable monofilament suture. Glue was applied and dressing was placed on top. Lead parameters were then rechecked through the device as noted below. Echo 2011 I have personally reviewed the Electrocardiogram and Device Check. IMPRESSION: Ms. Rios is a 42 year old female with non ischemic cardiomyopathy, which responded to BiV ICD/time but has largely not been taking GDMT due to poor toleration of meds. The patient's BiV ICD was inserted in 2008 for LVEF of 15%, lost a lot of weight about 2013, Now after device change on 09/21/22 has ICD lead noise and device ICD therapy disabled on December 05. The patient has not had a clinical shock but had an inappropriate shock prior to disabling the therapies. The patient is not taking Norvasc, Coreg, Spironolactone due to nausea and lightheadedness. Most recent echo (August 2022) is reported as having an LVEF of 45-50%. After discussion agreed that wants ICD therapy, that would have extraction and replacement of the ICD lead and would agree to wear the WCD. PLAN AND RECOMMENDATIONS: CXR today, Schedule for echo and OR 79 extraction and replacement of ICD lead (Durata). Set up for WCD until able to schedule for procedure. I personally interviewed, confirmed and edited the above information as obtained by others. [place] [id number] December 11, 2022 3:35 PM documented in this encounter [facility] 11-24-2022 Miscellaneous Notes Documentation scanned into EP outside records database. Electronically signed by Page Almaguer [facility] at 11/24/2022 4:01 PM EDT documented in this encounter [facility] 08-05-2022 Note PROCEDURE: XR FOOT L T MIN 3 VIEWS HISTORY: Pain ; acute onset plantar surface foot pain, painful weightbearing COMPARISON: None. FINDINGS: BONES:No fracture, acute abnormality, or significant arthropathy. Mild degenerative enthesopathic spurring of the calcaneus. SOFT TISSUES:No visible soft tissue swelling. EFFUSION:None visible. OTHER: Negative. IMPRESSION: 1. No acute bone abnormality or suspicious findings. Electronically authenticated by: AMADOR ALICEA Date: 2022-08-05 08:07 [facility] Evaluation note Diagnosis ICD (implantable cardioverter-defibrillator) in place- Primary Automatic implantable cardiac defibrillator in situ Cardiac resynchronization therapy defibrillator (DROSS PULLER-D) in place Chronic systolic heart failure (HCC) Chronic systolic heart failure Non-ischemic cardiomyopathy (HCC) Other primary cardiomyopathies Failure of implantable cardioverter-defibrillator (ICD) lead, initial encounter documented [facility] Failure of implantable cardioverter-defibrillator (ICD) lead, initial encounter- Primary Chronic systolic CHF (congestive heart failure) (HCC) Chronic systolic heart failure NICM (nonischemic cardiomyopathy) (HCC) Other primary cardiomyopathies Other mechanical complication of cardiac electrode, initial encounter [facility] Diagnosis Encounter for preoperative anesthesiology assessment for cardiac surgery- Primary Chronic systolic CHF (congestive heart failure) (HCC) Chronic systolic heart failure NICM (nonischemic cardiomyopathy) (HCC) Other primary cardiomyopathies Other mechanical complication of cardiac electrode, initial encounter documented in this encounter [facility] Summary Purpose Family History No Family History Records FoundNo Family History Records FoundNo Family History Records FoundNo Family History Records FoundNo Family History Records FoundNo Family History Records Found Advance Directives No Advanced Directives Records FoundNo Advanced Directives Records FoundNo Advanced Directives Records FoundNo Advanced Directives Records FoundNo Advanced Directives Records FoundNo Advanced Directives Records Found Additional Source Comments INFORMATION SOURCE (unrecogn ized section and content) DATE CREATED AUTHOR 02/11/[address] [facility] DATE CREATED AUTHOR AUTHOR'S ORGANIZ ATION 05/29/2018 [facility] DATE CREATED AUTHOR AUTHOR'S ORGANIZ ATION 09/28/2022 [facility] DATE CREATED AUTHOR AUTHOR'S ORGANIZ ATION 01/23/2023 [facility] DATE CREATED AUTHOR AUTHOR'S ORGANIZ ATION 09/09/2023 [facility] DATE CREATED AUTHOR AUTHOR'S ORGANIZ ATION 03/10/[address] [facility] Source Comments (unrecognize d section and content) In the event this informatio n is protected by the Federal Confidentiality of Alcohol and Drug Abuse Patient Records regulations: The Federal rules restrict any use of the information to criminally investigate or prosecute any alcohol or drug abuse patient.[facility] the event this information is protected by the Federal Confidentiality of Alcohol and Drug Abuse Patient Records regulations: The Federal rules restrict any use of the information to criminally investigate or prosecute any alcohol or drug abuse patient.[facility] the event this information is protected by the Federal Confidentiality of Alcohol and Drug Abuse Patient Records regulations: The Federal rules restrict any use of the information to criminally investigate or prosecute any alcohol or drug abuse patient.[facility] [facility] the event this information is protected by the Federal Confidentiality of Alcohol and Drug Abuse Patient Records regulations: The Federal rules restrict any use of the information to criminally investigate or prosecute any alcohol or drug abuse patient.[facility] the event this information is protected by the Federal Confidentiality of Alcohol and Drug Abuse Patient Records regulations: The Federal rules restrict any use of the information to criminally investigate or prosecute any alcohol or drug abuse patient.[facility] the event this information is protected by the Federal Confidentiality of Alcohol and Drug Abuse Patient Records regulations: The Federal rules restrict any use of the information to criminally investigate or prosecute any alcohol or drug abuse patient.[facility] Center[facility] the event this information is protected by the Federal Confidentiality of Alcohol and Drug Abuse Patient Records regulations: The Federal rules restrict any use of the information to criminally investigate or prosecute any alcohol or drug abuse patient.[facility] Center[facility] the event this information is protected by the Federal Confidentiality of Alcohol and Drug Abuse Patient Records regulations: The Federal rules restrict any use of the information to criminally investigate or prosecute any alcohol or drug abuse patient.[facility] CenterIn the event this information is protected by the Federal Confidentiality of Alcohol and Drug Abuse Patient Records regulations: The Federal rules restrict any use of the information to criminally investigate or prosecute any alcohol or drug abuse patient.[facility] Reason for Visit (unrecogniz ed section and content) Reason Comments Received Outside Medical Records Referra l & MR Reason Comments ICD ICD lead failure Cardiomyopathy Reason Comments Schedule Surgery EPS- Lead Extraction and Reimplantation Reason Comments Reschedule OR 79 case Reason Comments MONITOR ALARM Reason Comments Received Outside Medical Records Reason Comments Patient Education EPS-ICD Leade Extrac t / Reimplant Care Teams (unrecognized sec tion and content) Information Technology Coordinator Relationship Specialty Start Date End Date [place] [address] Primary Staff Physician Cardiology 09/06/18 Information Technology Coordinator Relationship Specialty Start Date End Date Ubaldo SuarezDICT AVFariha [place] [address] Primary Staff Physician Cardiology 09/06/18 Neto Demarco MD [address] [place] [address] Primary Staff Physician Cardiology 12/11/22 Information Technology Coordinator Relationship Specialty Start Date End Date [place] [address] Primary Staff Physician Cardiology 09/06/18 Neto Demarco MD [address] [place] [address] Primary Staff Physician Cardiology 12/11/22 Information Technology Coordinator Relationship Specialty Start Date End Date [place] [address] Primary Staff Physician Cardiology 09/06/18 Neto Demarco MD [address] [place] [address] Primary Staff Physician Cardiology 12/11/22 Information Technology Coordinator Relationship Specialty Start Date End Date Ubaldo [place] [address] Primary Staff Physician Cardiology 09/06/18 Neto Demarco MD [address] [place] [address] Primary Staff Physician Cardiology 12/11/22 Information Technology Coordinator Relationship Specialty Start Date End Date Ubaldo Suarez [address] [place] [address] Primary Staff Physician Cardiology 09/06/18 Neto Demarco MD [address] [facility] [place] [place] [id number] Primary Staff Physician Cardiology 12/11/22 Information Technology Coordinator Relationship Specialty Start Date End Date Rock Dunbar [address] [place] [address] PCP - General Family Medicine 12/30/22 Ubaldo Suarez [address] [place] [address] Primary Staff Physician Cardiology 09/06/18 Neto Demarco MD [address] [place] [address] Primary Staff Physician Cardiology 12/11/22 Information Technology Coordinator Relationship Specialty Start Date End Date Rock Dunbar [address] [place] [address] PCP - General Family Medicine 12/30/22 [facility] [address] [place] [address] Primary Staff Physician Cardiology 09/06/18 Neto Demarco MD [address] [place] [address] Primary Staff Physician Cardiology 12/11/22 FOR RECORDS PERTAINING TO PATIENTS WHO ARE OR HAVE BEEN ENROLLED IN A CHEMICAL DEPENDENCY/SUBSTANCEABUSE PROGRAM, SOME INFORMATION MAY BE OMITTED. This clinical summary was aggregated from multiple sources. Caution should be exercised in using it in the provision of clinical care. This summary normalizes information from multiple sources, and as a consequence, information in this document may materially change the coding, format and clinical context of patient data. In addition, data may be omitted in some cases. CLINICAL DECISIONS SHOULD BE BASED ON THE PRIMARY CLINICAL RECORDS. [facility] (PRN) [facility]. provides no warranty or guarantee of the accuracy or completeness of information in this document.
--- NOTE | 2024-07-15 09:27 | XR_ITS ---
The [address] [address] Patient Name: SERGIO BERNARDO MRN: [id number] date: 1980 Sex: F Assigned Patient Location: ER Current Patient Location: ED.MAIN Accession/Order Number: [id number] Exam Date: 07/15/2024 09:28 Report Date: 07/15/2024 10:20 At the request of: YINKA WELLS Procedure: XR shoulder RT min 2V EXAM: XR shoulder RT min 2V 07/15/2024 COMPARISON STUDY: AP chest 05/08/2023. FINDINGS: Internal rotation, external rotation, and scapular Y type views were obtained. HISTORY: Right shoulder injury and pain. XR/XR shoulder RT min 2V IMPRESSION: 1. 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 Subchondral cyst involving the superolateral aspect of the humeral head with transverse width of 12 mm noted. 2. No acute fracture or dislocation. 3. Partial visualization of left-sided pacemaker leads. Electronically authenticated by: ALVARO DIAMOND Date: 07/15/2024 10:20
--- NOTE | 2024-07-15 09:28 | ED.UPPEXIN1 ---
HPI HPI - Extremity Injury (Upper) General Chief Complaint: Extremity Injury, Upper Stated Complaint: R SHOULDER PAIN Time Seen by Provider: 07/15/24 09:15 Source: patient Mode of arrival: walk-in Limitations: no limitations History of Present Illness HPI narrative: pt presents with several weeks of right shoulder pain. She told me that she woke with the pain and considered at mild and fleeting where it might only bother her for a few seconds after certain movements. She has barely been using that right upper extremity and when she does so she tries not to move at the shoulder. This morning after waking up, she told me, she was reaching above her head and felt a pop and experienced severe pain in the right shoulder. She localizes the pain to the anterior portion of the right shoulder closer to the inferior portion of the humeral head within the distal clavicle. She does experience pain in other portions of the shoulder as she goes through active range of motion of the right shoulder but most of the pain is anterior Related Data Home Medications ?Medication ?Instructions ?Recorded ?Confirmed alprazolam 1 mg tablet 1 mg PO .q6 PRN anxiety 11/22/22 11/24/22 amiodarone 100 mg tablet 100 mg PO DAILY 11/22/22 11/24/22 amitriptyline 25 mg tablet 25 mg PO BEDTIME 11/22/22 11/24/22 aspirin 81 mg tablet,delayed 81 mg PO DAILY 11/22/22 11/24/22 release (Adult Aspirin Regimen) atorvastatin 80 mg tablet 80 mg PO DAILY 11/22/22 11/24/22 carvedilol 6.25 mg tablet 6.25 mg PO Q12H 11/22/22 11/24/22 citalopram 20 mg tablet 20 mg PO DAILY 11/22/22 11/24/22 fluticasone propionate 50 1 spray intranasal Q12H 11/22/22 11/24/22 mcg/actuation nasal spray,suspension furosemide 20 mg tablet 20 mg PO DAILY 11/22/22 11/24/22 gabapentin 300 mg capsule 300 mg PO Q8H 11/22/22 11/24/22 losartan 25 mg tablet 25 mg PO DAILY 11/22/22 11/24/22 olanzapine 5 mg tablet 5 mg PO DAILY 11/22/22 11/24/22 pantoprazole 40 mg tablet,delayed 40 mg PO DAILY 11/22/22 11/24/22 release spironolactone 25 mg tablet 12.5 mg PO DAILY 11/22/22 11/24/22 topiramate 50 mg tablet 50 mg PO Q12H 11/22/22 11/24/22 [id number]-icwmgzukwvnif-xxunglbe 1 tab PO Q6H PRN pain 11/24/22 11/24/22 50 mg-325 mg-40 mg tablet Previous Rx's ?Medication ?Instructions ?Recorded ibuprofen 800 mg tablet 800 mg PO Q8H PRN pain #20 tabs 02/07/23 methocarbamol 750 mg tablet 750 mg PO Q6H PRN pain #30 tabs 07/15/24 nabumetone 750 mg tablet 750 mg PO BID PRN pain #14 tabs 07/15/24 Allergies Allergy/AdvReac Type Severity Reaction Status Date / Time amoxicillin Allergy Mild Rash Verified 07/15/24 09:07 cefoxitin Allergy Mild Rash Verified 07/15/24 09:07 Sulfa (Sulfonamide Allergy Mild Rash Verified 07/15/24 09:07 Antibiotics) vancomycin Allergy Unknown Hives Verified 07/15/24 09:07 MADI Inhibitors AdvReac Mild Cough Verified 07/15/24 09:07 lisinopril AdvReac Mild Cough Verified 07/15/24 09:07 sulfamethoxazole (From AdvReac Mild rash Verified 07/15/24 09:07 Sulfamethoxazole-Trimethoprim) trimethoprim (From AdvReac Mild rash Verified 07/15/24 09:07 Sulfamethoxazole-Trimethoprim) Opioid HPI Opioid Management Most Recent Pain and Opioid Data: Last Pain Scale 7 07/15/24 09:29 07/15/24 PFSH PFSH Social History Smoking status: Current every day smoker Little interest or pleasure in doing things: not at all Feeling down, depressed, or hopeless: not at all Exam Narrative Exam Narrative: Nurses note and vital signs reviewed and patient is not hypoxic. afebrile General: The patient appears well and in no apparent distress. Skin: Warm, dry, no pallor noted. Head: Normocephalic, atraumatic Neck: Supple. Full ROM and no cervical spinal tenderness. Eyes: PERRLA, EOMI Cardiovascular: Regular Rate and Rhythm Respiratory: Patient is in no distress, no accessory muscle use, lungs are clear to auscultation, no wheezing, rales or rhonchi Back: No thoracic vertebral or scapular tenderness to palpation. Musculoskeletal: Right shoulder -unremarkable right clavicle. She has tenderness in the anterior portion of the shoulder near the inferior portion of the humeral head. She has some tenderness to palpation in the posterior aspect of the shoulder joint. She has increased pain with range of motion in any modality of the right shoulder but it appears to be at its worst when she attempts right shoulder flexion and abduction. no additional sign of long bone fracture, no tenderness, no swelling. Moves remaining portion of right upper extremy in all modalities with 5/5 strength. 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 Psychiatric: Cooperative Constitutional Vital Signs, click to edit/add: Last Vital Signs Temp 98.6 F 07/15/24 09:01 Pulse 67 07/15/24 09:01 Resp 20 07/15/24 09:01 BP 132/83 07/15/24 09:01 Pulse Ox 99 07/15/24 09:01 O2 Del Method Room Air 07/15/24 09:01 Course Vital Signs Vital signs: Vital Signs Temperature 98.6 F 07/15/24 09:01 Pulse Rate 67 07/15/24 09:01 Respiratory Rate 20 07/15/24 09:01 Blood Pressure 132/83 07/15/24 09:01 Pulse Oximetry 99 07/15/24 09:01 Oxygen Delivery Method Room Air 07/15/24 09:01 Temperature 98.6 F 07/15/24 09:01 Pulse Rate 67 07/15/24 09:01 Respiratory Rate 20 07/15/24 09:01 Blood Pressure 132/83 07/15/24 09:01 Pulse Oximetry 99 07/15/24 09:01 Oxygen Delivery Method Room Air 07/15/24 09:01 MDM - Extremity Injury (Upper) MDM Narrative Medical decision making narrative: No acute fracture or dislocation noted on the x-rays of the right shoulder. I believe this patient likely had impingement syndrome secondary to limited mobility of the right shoulder for approximately 3 weeks. Then when she tried to reach up and grab something, it loosened which caused the pop sensation and pain throughout the shoulder. It is also possible that she has injured one of the muscles of the rotator cuff in the right shoulder. Either way she will receive IM Toradol and IM Solu-Medrol in the emergency department. She will be discharged home with outpatient follow-up with the orthopedist on July 17 at 11 AM in the office. Emergency department nurse applied a sling to the right upper extremity for support. I have reviewed some exercises and range of motion activities I want her to undergo multiple times a day to keep that right shoulder moving. She was prescribed Robaxin and Relafen to take on an outpatient basis Imaging Data xr shoulder: Radiologist's impression: ITS Impressions Shoulder X-Ray 07/15/24 09:27 IMPRESSION: 1. 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 Subchondral cyst involving the superolateral aspect of the humeral head with transverse width of 12 mm noted. 2. No acute fracture or dislocation. 3. Partial visualization of left-sided pacemaker leads. Electronically authenticated by: ALVARO DIAMOND Date: 07/15/2024 09:46 Discharge Plan Discharge Chief Complaint: Extremity Injury, Upper Clinical Impression: Impingement of right shoulder, Acute pain of right shoulder Patient Disposition: Home, Self-Care Time of Disposition Decision: 10:12 Prescriptions / Home Meds: New nabumetone 750 mg tablet 750 mg PO BID PRN (Reason: pain) Qty: 14 0RF methocarbamol 750 mg tablet 750 mg PO Q6H PRN (Reason: pain) Qty: 30 0RF No Action citalopram 20 mg tablet 20 mg PO DAILY olanzapine 5 mg tablet 5 mg PO DAILY topiramate 50 mg tablet 50 mg PO Q12H fluticasone propionate 50 mcg/actuation spray,suspension 1 spray INTRANASAL Q12H atorvastatin 80 mg tablet 80 mg PO DAILY amitriptyline 25 mg tablet 25 mg PO BEDTIME amiodarone 100 mg tablet 100 mg PO DAILY gabapentin 300 mg capsule 300 mg PO Q8H furosemide 20 mg tablet 20 mg PO DAILY alprazolam 1 mg tablet 1 mg PO .q6 PRN (Reason: anxiety) aspirin [Adult Aspirin Regimen] 81 mg tablet,delayed release (DR/EC) 81 mg PO DAILY carvedilol 6.25 mg tablet 6.25 mg PO Q12H losartan 25 mg tablet 25 mg PO DAILY pantoprazole 40 mg tablet,delayed release (DR/EC) 40 mg PO DAILY spironolactone 25 mg tablet 12.5 mg PO DAILY yjdhviopgi-ttfldbweperiu-iwiw 50-325-40 mg tablet 1 tab PO Q6H PRN (Reason: pain) ibuprofen 800 mg tablet 800 mg PO Q8H PRN (Reason: pain) Qty: 20 0RF Print Language: Romanian Instructions: Shoulder Pain (ED), Shoulder Impingement Syndrome (ED) Referrals: Rock Robertson MD [Primary Care Provider] - 1 week Jaspal Villegas MD [Physician] - 07/17/24 11:00 am
[2024-07-15] MEDS: METHYLPREDNISOLONE SOD SUCC PF 125 MG/2 ML VIAL IM (10:16)
[2024-07-15] MEDS: KETOROLAC TROMETHAMINE 60 MG/2 ML VIAL IM (10:17)
[2024-07-15 10:27] VITALS: BP 143/85; PULSE 69; O2SAT 99
== END 2024-07-15 10:30 | disposition home or self-care (01) ==
PROVIDERS: Emergency Provider Emergency Medicine; PCP Family Medicine
DX: M25.811 Other specified joint disorders, right shoulder (principal); M25.511 Pain in right shoulder; F17.200 Nicotine dependence, unspecified, uncomplicated
CPT/HCPCS: 73030; 96372; 99284; J1885; J2919

== ENCOUNTER 2025-02-17 08:54 | Emergency (ER) | payer SELFPAY ==
[2025-02-17] VITALS (10 sets, daily range): BP systolic 116–139; BP diastolic 68–90; PULSE 60–81; TEMP 36.6; O2SAT 96–98; BMI 31.0
--- OUTSIDE RECORDS SUMMARY | 2025-02-17 09:01 | XMS_ITS | CCD ---
Author Organization [facility] Care Team Providers Care Copy Cutter Name Role Phone Amir, Hasan Unavailable Unavailable NADERER, ROCK~[id number] UNKNOWN Unavailable Unavailable Yovanny Pollard Unavailable Unavailable Abdal Rex, Sulieman Unavailable Unavailab le REX, SULIEMAN ABDAL Unavailable Unavailab le Abdal Rex, Sulieman Unavailable Unavailab le Abdal Rex, Sulieman Unavailable Unavailab le Abdal Rex, Sulieman Unavailable Unavailab le NADERER, ROCK~[id number] UNKNOWN Unavailable Unavailable NADERER, ROCK~[id number] UNKNOWN Unavailable Unavailable Echols, Jada F Unavailable Unavailable Echols, Jada F Unavailable Unavailable NADERER, ROCK~[id number] UNKNOWN Unavailable Unavailable AynupurireAlexandere N Unavailable Unavailable Lyster, Harris. Unavailable Unavailable Amir, Hasan Unavailable Unavailable Lyster, Harris. Unavailable Unavailable Merchant, Bynum Unavailable Unavailable Lyster, Harris. Unavailable Unavailable Lyster, Harris. Unavailable Unavailable Lyster, Harris. Unavailable Unavailable Lyster, Harris. Unavailable Unavailable Lyster, Harris. Unavailable Unavailable Lyster, Harris. Unavailable Unavailable Lyster, Harris. Unavailable Unavailable Fisher, Amador Unavailable Unavailable Fisher, Amador Unavailable Unavailable Hussein, Daphney Unavailable Unavailable Fisher, Amador Unavailable Unavailable Fisher, Amador Unavailable Unavailable Fisher, Amador Unavailable Unavailable Fisher, Amador Unavailable Unavailable Fisher, Amador Unavailable Unavailable Fisher, Amador Unavailable Unavailable UNKNOWN, PROVIDER Unavailable Unavailable [...] Primary Care Unavailable JASS JUNE Attending Unavailable JASS JUNE Admitting Unavailable JAIV, EVELYN K Consulting Unavailable NADERER, DR ROCK Lindsey Primary Care Unavailable JAVI, EVELYN K Attending Unavailable JAVI, EVELYN K Admitting Unavailable NADERER, DR ROCK [...] Primary Care Provider DARLING MARTINEZ Admitting Unavailable JUAN, DARLING Attending Unavailable NETO DEMARCO Referring Unavailable NADERER, ROCK Lindsey Primary Care Unavailable NETO DEMARCO Attending Unavailable DARLING MARTINEZ Referring Unavailable NADERER, ROCK Lindsey Primary Care Unavailable MARTINEZDARLING DICKEY Referring Unavailable NADERER, ROCK Lindsey Primary Care Unavailable DARLING MARTINEZ Referring Unavailable NADERER, ROCK Lindsey Primary Care Unavailable DARLING MARTINEZ Referring Unavailable NADEREMegha, ROCK Lindsey Primary Care Unavailable BETTINA, ROCK Lindsey Primary Care Unavailable ROCK DUNBAR Attending Unavailable JASS JUNE Referring Unavailable SLADEJASS Referring Unavailable SLADEJASS Referring Unavailable SLADEJASS Referring Unavailable Allergies Allergy Classification Reported Allergen(s) Allergy Type Date of Onset Reaction(s) Facility (13 sources) amoxicillin; Translations: [amoxicillin] Drug Allergy 9 [facility] Repository (4 sources) cefOXitin; Translations: [Mefoxin] Drug Allergy 9 [facility] Repository (1 source) morphine; Translations: [morphine] Drug Allergy [facility] Repository (4 sources) sulfamethoxazole / trimethoprim; Translations: [Bactrim] Drug Allergy 3 [facility] Repository (5 sources) Amino Acids; Translations: [LISINOPRIL] Drug Allergy 3 [facility] Repository (3 sources) Angiotensin Converting Enzyme (Madi) Inhibitors; Translations: [MADI INHIBITORS] Drug allergy (disorder) 3 [facility] Repository (2 sources) Sulfonamides (Antibiotic) Drug allergy (disorder) 3 [facility] Repository (4 sources) Vancomycin; Translations: [VANCOMYCIN] Drug Allergy 2 [facility] Repository (7 sources) Angiotensin-converti ng enzyme inhibitor agent Drug Allergy 3 Other: See Comments, Cough [facility] (9 sources) cefOXitin; Translations: [CEFOXITIN] Drug Allergy 9 [facility] (7 sources) Lisinopril Drug Allergy 3 [facility] (9 sources) Sulfamethoxazole / Trimethoprim; Translations: [SULFAMETHOXAZOLE-TR IMETHOPRIM] Drug Allergy 3 [facility] (9 sources) Sulfonamides (Antibiotic); Translations: [SULFA (SULFONAMIDE ANTIBIOTICS)] Drug Allergy 3 [facility] (7 sources) Vancomycin Drug Allergy 2 [facility] Medications Current Medications Medication Drug Class(es) Dates [...] disease (1 source) Atherosclerotic heart disease of [place] coronary artery without angina pectoris; Translations: [ATHSCL HEART DISEASE OF [place] DEE-NI' CORONARY ARTERY W/O ANG PCTRS] Onset: 04-29-20 [...] 04-29-20 Episodic Other aftercare (1 source) Other half-way (current) drug therapy; Translations: [OTH HARNESSMAKER CURRENT DRUG THERAPY] Onset: 09-29-19 Episodic Other [...] Test Name Value Interpretation Reference Range Facility Orders Onlyon 02-09-2025 Orders Only [id number] Reymundo Rios 1980 F Date Provider Department Center 02/09/2025 JASS BAUTISTA [facility] Family History Problem Relation Age of Onset Coronary artery disease Mother Diabetes Mother Heart failure Mother Other Mother Hypertension Mother Stroke Mother Stroke Father Clotting disorder Father Family Status - Relation Status Age at Mother Father Normal [facility] Orders Onlyon 11-10-2024 Orders Only [id number] Reymundo Rios 1980 F Date Provider Department Center 11/10/2024 JASS BAUTISTA [facility] Family History Problem Relation Age of Onset Coronary artery disease Mother Diabetes Mother Heart failure Mother Other Mother Hypertension Mother Stroke Mother Stroke Father Clotting disorder Father Family Status - Relation Status Age at Mother Father Normal [facility] CNPNon 01-22-2023 CNPN Telephone (BRENDA) CARITO RIOS ([id number]) 1980 F Date Time Provider Department 01/22/23 NETO DEMARCO During your visit today, we recorded the following information about you: Salima Herring 01/22/2023 11:08 AM Signed Post Implant follow up call: Date: 01/22/2023 Name: Caritoangelo Rios Is your incision: Red: No Open: No Swollen: No Draining: No Steri Strips: fell off If the device is an ICD, have you received any shocks: No Have you received your temporary or permanent ID card: Yes Do you have your f/u appointment: Yes Appointments for Next 60 Days Date Time Provider Location Dept Phone 02/12/2023 11:15 AM [facility] [phone] Any scheduling issues:No Questions moving forward: No Salima Herring Allergies As of Date: 01/22/2023 Noted Allergy Reaction AMOXICILLIN 05/01/2009 2 - Rash CEFOXITIN 05/01/2009 2 - Rash SULFA (SULFONAMIDE ANTIBIOTICS) 03/24/2013 2 - Rash SULFAMETHOXAZOLE-TRIMETHOPRIM 08/11/2012 2 - Rash VANCOMYCIN 04/28/2022 2 - Rash LISINOPRIL 12/11/2022 3 - Cough MADI INHIBITORS 02/21/2013 14 - Other: See Comments 3 - Cough Date Reviewed: 01/01/2023 Reviewed by: Melissa Fernandez RN - Fully Assessed Reason for Visit: [...] Status:Closed by SALIMA HERRING on 01/22/23 Normal [facility] Basic metabolic 2000 panelon 01-02-2023 Anion gap [Moles/Vol] 11 mmol/L Normal 9-18 [facility] Comment on above: Order Comment: Speci men Type: BLOOD SPECIMENOrdering Facility: [facility] Address: [address] [place] [address] Performed By: #### 2 4321-2 ####[facility] [id number] [place] [address] [place] Calcium [Mass/Vol] 8.5 mg/dL Normal 8.5-10.2 [facility] Comment on above: Order Comment: Speci men Type: BLOOD SPECIMENOrdering Facility: [facility] Address: [address] Performed By: #### 2 4321-2 ####[facility] [id number] [place] [address] [place] Chloride [Moles/Vol] 104 mmol/L Normal 97-105 [facility] Comment on above: Order Comment: Speci men Type: BLOOD SPECIMENOrdering Facility: [facility] Address: [address] Performed By: #### 2 4321-2 ####[facility] [id number] [place] [address] [place] CO2 [Moles/Vol] 23 mmol/L Normal 22-30 [facility] Comment on above: Order Comment: Speci men Type: BLOOD SPECIMENOrdering Facility: [facility] Address: [address] [place], [place] [address] Performed By: #### 2 4321-2 ####[facility] [id number] [place] [address] [place] Creatinine [Mass/Vol] 0.80 mg/dL Normal 0.58-0.96 [facility] Comment on above: Order Comment: Speci men Type: BLOOD SPECIMENOrdering Facility: [facility] Address: [address] Performed By: #### 2 4321-2 ####[facility] [id number] [place] [address] [place] ESTIMATED GLOMERULAR FILTRATION RATE 96 mL/min/1.73m??? Normal >=60 [facility] Comment on above: Order Comment: Taisha turcios Type: BLOOD SPECIMENOrdering Facility: [facility] Address: [address] [place] [address] Result Comment: Suzette mated Glomerular Filtration Rate [...] actual GFR. Performed By: #### 2 4321-2 ####[facility] [id number] [place] [address] [place] Glucose [Mass/Vol] 98 mg/dL Normal 74-99 [facility] Comment on above: Order Comment: Taisha turcios Type: BLOOD SPECIMENOrdering Facility: [facility] Address: [address] [place] [address] Result Comment: The [place] Diabetes Association (ADA) provides guidance for cutoff [...] Standards of Medical Care in Diabetes 2016, [place] [employer]. Diabetes Care. 2016.39(Suppl 1). Performed By: #### 2 4321-2 ####[facility] [id number] [place] [address] [place] Potassium [Moles/Vol] 4.3 mmol/L Normal 3.7-5.1 [facility] Comment on above: Order Comment: Taisha turcios Type: BLOOD SPECIMENOrdering Facility: [facility] Address: [address] Performed By: #### 2 4321-2 ####[facility] [id number] [place] [address] [place] Sodium [Moles/Vol] 138 mmol/L Normal 136-144 [facility] Comment on above: Order Comment: Speci men Type: BLOOD SPECIMENOrdering Facility: [facility] Address: [address] Performed By: #### 2 4321-2 ####[facility] [id number] [place] [address] [place] Urea nitrogen [Mass/Vol] 8 mg/dL Normal 7-21 [facility] Comment on above: Order Comment: Speci men Type: BLOOD SPECIMENOrdering Facility: [facility] Address: [address] Performed By: #### 2 4321-2 ####[facility] [id number] [place] [address] [place] CBC panel Auto (Bld)on 01-02 Erythrocyte distribution width (RBC) [Ratio] 12.8 % Normal 11.5-15.0 [facility] Comment on above: Order Comment: Speci men Type: BLOOD SPECIMENOrdering Facility: [facility] Address: [address] Performed By: #### 5 8410-2 ####[facility] [id number] [address] [place] Hematocrit (Bld) [Volume fraction] 37.4 % Normal 36.0-46.0 [facility] Comment on above: Order Comment: Speci men Type: BLOOD SPECIMENOrdering Facility: [facility] Address: [address] Performed By: #### 5 8410-2 ####[facility] [id number] [place] [address] [place] Hemoglobin (Bld) [Mass/Vol] 13.0 g/dL Normal 11.5-15.5 [facility] Comment on above: Order Comment: Speci men Type: BLOOD SPECIMENOrdering Facility: [facility] Address: [address] [place] [address] Performed By: #### 5 8410-2 ####[facility] [id number] [place] [address] [place] MCH (RBC) [Entitic mass] 30.2 pg Normal 26.0-34.0 [facility] Comment on above: Order Comment: Speci men Type: BLOOD SPECIMENOrdering Facility: [facility] Address: [address] [place] [address] Performed By: #### 5 8410-2 ####[facility] [id number] [address] [place] MCHC (RBC) [Mass/Vol] 34.8 g/dL Normal 30.5-36.0 [facility] Comment on above: Order Comment: Speci men Type: BLOOD SPECIMENOrdering Facility: [facility] Address: [address] [place] [address] Performed By: #### 5 8410-2 ####[facility] [id number] [place] [address] [place] MCV (RBC) [Entitic vol] 86.8 fL Normal 80.0-100.0 [facility] Comment on above: Order Comment: Speci men Type: BLOOD SPECIMENOrdering Facility: [facility] Address: [address] [place] [address] Performed By: #### 5 8410-2 ####[facility] [id number] [place] [address] [place] Nucleated RBC (Bld) [#/Vol] 10*3/uL Normal <0.01 [facility] Comment on above: Order Comment: Speci men Type: BLOOD SPECIMENOrdering Facility: [facility] Address: [address] [place], [place] [address] Performed By: #### 5 8410-2 ####[facility] [id number] [place] [address] [place] Platelet mean volume (Bld) [Entitic vol] 11.1 fL Normal 9.0-12.7 [facility] Comment on above: Order Comment: Speci men Type: BLOOD SPECIMENOrdering Facility: [facility] Address: [address] [place], [place] [address] Performed By: #### 5 8410-2 ####[facility] [id number] [place] [address] [place] Platelets (Bld) [#/Vol] 146 10*3/uL Low 150-400 [facility] Comment on above: Order Comment: Speci men Type: BLOOD SPECIMENOrdering Facility: [facility] Address: [address] [place], [place] [address] Performed By: #### 5 8410-2 ####[facility] [id number] [place] [address] [place] RBC (Bld) [#/Vol] 4.31 10*6/uL Normal 3.90-5.20 [facility] Comment on above: Order Comment: Speci men Type: BLOOD SPECIMENOrdering Facility: [facility] Address: [address] [place], [place] [address] Performed By: #### 5 8410-2 ####[facility] [id number] [place] [address] [place] WBC (Bld) [#/Vol] 8.88 10*3/uL Normal 3.70-11.00 [facility] Comment on above: Order Comment: Speci men Type: BLOOD SPECIMENOrdering Facility: [facility] Address: [address] [place] [address] Performed By: #### 5 8410-2 ####[facility] [id number] [facility]ITALMic[facility] COMANCHEJOHN [id number] [address] [place] ECG COMPLETEon 01-02-2023 ECG COMPLETE Ventricular Rate : 6 0 BPM Atrial Rate : 60 BPM P-R Interval : 136 ms QRS Duration : 182 ms Q-T Interval : 500 ms QTC Calculation(Bazett) : 500 ms Calculated P [place] : 89 degrees Calculated R [place] : -137 degrees Calculated T [place] : 23 degrees AV DUAL-PACED RHYTHM BIVENTRICULAR PACEMAKER DETECTED ABNORMAL ECG Confirmed by HONG SHAFER MD ([id number]) on 01/05/2023 2:14:49 PM NAME : CARITO RIOS PID : [id number] : 1980 Gender : Female Race : ORD : [id number] Procedure Date : Jan 02 2023 06:11:19 Edit Date : Jan 05 2023 14:14:52 Diagnosis: AV DUAL-PACED RHYTHM BIVENTRICULAR PACEMAKER DETECTED ABNORMAL ECG Confirmed by HONG SHAFER MD ([id number]) on 01/05/2023 2:14:49 PM Test Reason : Post-OP Location : 361 : J61 [id number] Overread By : HONG SHAFER MD Edited By : HONG SHAFER MD Referred By : , Acquired by : LACEY TOM [facility] XR CHEST 2V FRONTAL/LATon XR CHEST 2V [...] and soft tissues: Unremarkable. IMPRESSION: See result. Jacquard Twine Polisher Operator: WES Transcribe Date/Time: Jan 02 2023 10:41A Dictated by : CLIF ROTHMAN MD This examination was interpreted and the report reviewed and electronically signed by: CLIF ROTHMAN MD on Jan 02 2023 10:45AM EST [id number] Normal [facility] ANES POSTPROC EVALon 023 ANES POSTPROC EVAL HNO ID: [id number] Author: Vikki Pretty DO Service: ? Author Type: Anesthesiologist Type: Anesthesia Postprocedure Evaluation Filed: 01/01/2023 7:58 PM Note Text: POST ANESTHESIA EVALUATION NOTE : 1980 Procedure Summary Date: 01/01/23 Room / Location: [place] [address] / [facility] CT AND VAS Anesthesia Start: 125 Anesthesia Stop: 1926 Procedures: REMOVAL ELECTRODE(S) IMPLANTABLE DEFIBRILLATOR TRANSVENOUS EXTRACTION ASSEMBLY ADJUSTER PACEMAKER SINGLE Diagnosis: Chronic systolic CHF (congestive [...] January 01, 2023 TIME: 7:57 PM CSN: [id number] Normal [facility] ANES PRE-OPon 01-01-2023 ANES PRE-OP HNO ID: [id number] Author: Jama Wilson MD Service: ? Author Type: Anesthesiologist Type: Anesthesia Preprocedure Evaluation Filed: 01/01/2023 1:00 PM Note Text: ANESTHESIOLOGY DAY OF SURGERY NOTE : 1980 Procedure Information Anesthesia Start Date/Time: 01/01/23 1256 Procedures: REMOVAL ELECTRODE(S) IMPLANTABLE DEFIBRILLATOR TRANSVENOUS EXTRACTION ASSEMBLY ADJUSTER PACEMAKER SINGLE Location: [facility] / [facility] AND VAS Surgeons: Darling Martinez MD [...] and consent discussed: yes. Patient / Responsible Constitution Party agrees to proceed: yes Patient / Surrogate [...] 01/01/23 1014 Temp 36.6 ?C (97.9 ?F) 01/01/23 1014 SpO2 97 % 01/01/23 1249 Vitals [...] January 01, 2023 TIME: 1:00 PM CSN: [id number] Normal [facility] ARTERIAL BLOOD GASESon 01-01 Base excess Calc (Bld) [Moles/Vol] 0 mmol/L Normal 0-2 [facility] Comment on above: Order Comment: Speci men Type: ARTERIAL BLOOD SPECIMENOrdering Facility: [facility] Address: [address] [place] [address] Performed By: #### A LLBG ####[facility] [id number] [place] [address] [place] Calcium.ionized (Bld) [Mass/Vol] 1.19 mmol/L Normal 1.08-1.30 [facility] Comment on above: Order Comment: Speci men Type: ARTERIAL BLOOD SPECIMENOrdering Facility: [facility] Address: [address] [place] [address] Performed By: #### A LLBG ####[facility] [id number] [place] [address] [place] Calcium.ionized adjusted to pH 7.4 (BldA) [Moles/Vol] 1.20 mmol/L Normal 1.08-1.30 [facility] Comment on above: Order Comment: Speci men Type: ARTERIAL BLOOD SPECIMENOrdering Facility: [facility] Address: [address] [place] [address] Performed By: #### A LLBG ####[facility] [id number] [place] [address] [place] Carboxyhemoglobin (BldA) [Mass fraction] 6.0 % High 0.0-2.0 [facility] Comment on above: Order Comment: Speci men Type: ARTERIAL BLOOD SPECIMENOrdering Facility: [facility] Address: [address] Result Comment: Carb oxyhemoglobin Reference Range for Smokers: 2.0-8.0% Performed By: #### A LLBG ####[facility] [id number] [place] [address] [place] CO2 (Bld) [Partial pressure] 38 mm Hg Normal 36-46 [facility] Comment on above: Order Comment: Speci men Type: ARTERIAL BLOOD SPECIMENOrdering Facility: [facility] Address: [address] Performed By: #### A LLBG ####[facility] [id number] [place] [address] [place] CO2 [Moles/Vol] 25 mmol/L Normal 22-28 [facility] Comment on above: Order Comment: Speci men Type: ARTERIAL BLOOD SPECIMENOrdering Facility: [facility] Address: [address] Performed By: #### A LLBG ####[facility] [id number] [place] [address] [place] CO2 adjusted to patient's actual temperature (Bld) [Partial pressure] 38 mmHg Normal 36-46 [facility] Comment on above: Order Comment: Speci men Type: ARTERIAL BLOOD SPECIMENOrdering Facility: [facility] Address: [address] Performed By: #### A LLBG ####[facility] [id number] [place] [address] [place] Glucose [Mass/Vol] 85 mg/dL Normal 60-105 [facility] Comment on above: Order Comment: Speci men Type: ARTERIAL BLOOD SPECIMENOrdering Facility: [facility] Address: [address] Performed By: #### A LLBG ####[facility] [id number] [place] [address] [place] HCO3 (Bld) [Moles/Vol] 24 mmol/L Normal 22-26 [facility] Comment on above: Order Comment: Speci men Type: ARTERIAL BLOOD SPECIMENOrdering Facility: [facility] Address: [address] [place] [address] Performed By: #### A LLBG ####[facility] [id number] [place] [address] [place] Hematocrit (Bld) [Volume fraction] 38.6 % Normal 36.0-46.0 [facility] Comment on above: Order Comment: Speci men Type: ARTERIAL BLOOD SPECIMENOrdering Facility: [facility] Address: [address] [place] [address] Performed By: #### A LLBG ####[facility] [id number] [place] [address] [place] Hemoglobin (Bld) [Mass/Vol] 12.5 g/dL Normal 11.5-15.5 [facility] Comment on above: Order Comment: Speci men Type: ARTERIAL BLOOD SPECIMENOrdering Facility: [facility] Address: [address] [place] [address] Performed By: #### A LLBG ####[facility] [id number] [place] [address] [place] Lactate [Moles/Vol] 0.5 mmol/L Normal 0.5-2.2 [facility] Comment on above: Order Comment: Speci men Type: ARTERIAL BLOOD SPECIMENOrdering Facility: [facility] Address: [address] [place], [place] [address] Performed By: #### A LLBG ####[facility] [id number] [place] [address] [place] Methemoglobin (Bld) [Mass fraction] 0.7 % Normal 0.0-1.5 [facility] Comment on above: Order Comment: Speci men Type: ARTERIAL BLOOD SPECIMENOrdering Facility: [facility] Address: [address] Performed By: #### A LLBG ####[facility] [id number] [place] [address] [place] Oxygen (Bld) [Partial pressure] 243 mm Hg High 85-95 [facility] Comment on above: Order Comment: Speci men Type: ARTERIAL BLOOD SPECIMENOrdering Facility: [facility] Address: [address] Performed By: #### A LLBG ####[facility] [id number] [place] [address] [place] Oxygen adjusted to patient's actual temperature (Bld) [Partial pressure] 243 mmHg High 85-95 [facility] Comment on above: Order Comment: Speci men Type: ARTERIAL BLOOD SPECIMENOrdering Facility: [facility] Address: [address] Performed By: #### A LLBG ####[facility] [id number] [place] [address] [place] Oxyhemoglobin (BldA) [Mass fraction] 93 % Low 95-98 [facility] Comment on above: Order Comment: Speci men Type: ARTERIAL BLOOD SPECIMENOrdering Facility: [facility] Address: [address] [place] [address] Performed By: #### A LLBG ####[facility] [id number] [place] [address] [place] pH (Bld) 7.42 [pH] Normal 7.35-7.45 [facility] Comment on above: Order Comment: Speci men Type: ARTERIAL BLOOD SPECIMENOrdering Facility: [facility] Address: [address] Performed By: #### A LLBG ####[facility] [id number] [place] [address] [place] pH adjusted to patient's actual temperature (Bld) 7.42 Normal 7.35-7.45 [facility] Comment on above: Order Comment: Speci men Type: ARTERIAL BLOOD SPECIMENOrdering Facility: [facility] Address: [address] [place] [address] Performed By: #### A LLBG ####[facility] [id number] [place] [address] [place] Potassium [Moles/Vol] 3.7 mmol/L Normal 3.5-5.0 [facility] Comment on above: Order Comment: Speci men Type: ARTERIAL BLOOD SPECIMENOrdering Facility: [facility] Address: [address] [place] [address] Performed By: #### A LLBG ####[facility] [id number] [address] [place] Sodium [Moles/Vol] 138 mmol/L Normal 136-144 [facility] Comment on above: Order Comment: Speci men Type: ARTERIAL BLOOD SPECIMENOrdering Facility: [facility] Address: [address] [place] [address] Performed By: #### A LLBG ####[facility] [id number] [place] [address] [place] Bacteria Ur Culton 3 Bacteria identified Cx Nom (U) CULTURE, URINE: No growth (<1,000 CFU/ml) Normal [facility] Comment on above: Performed By: #### 6 30-4 ####[facility] [id number] [place] [address] [place] INTRAOPERATIVE ECHO PREon INTRAOPERATIVE ECHO PRE Echocardiography Report: Intraoperative Echo Pre (CADY)/Post [facility] OR - J4 Date of service: 01/01/2023 1:12:09 PM STRAIGHTENER Indication: RV lead extraction Technologist: staff Interpreting [...] pattern showed normal systolic flow. MITRAL VALVE [place] mitral valve. There is trace mitral valve regurgitation. TRICUSPID VALVE [place] tricuspid valve. There is trace tricuspid valve [...] findings communicated to procedural team Final [facility] Image : [id number] namicsSISUID See Link below for Image Normal [facility] SURGICAL PATHOLOGYon 023 CASE REPORT Normal [facility] Comment on above: Order Comment: Speci men Type: DEVICE SPECIMENOrdering Facility: [facility] Address: [address] [place] [address] Result Comment: Surg ical Pathology Report Case: [id number] Authorizing Provider: Darling Martinez MD Collected: 01/01/2023 05:14 PM Ordering Location: Admitting Received: 01/04/2023 07:43 AM Pathologist: Fariha Salcido MD Specimens: A) - HARDWARE, A Lead B) - HARDWARE, ICD lead Performed By: #### S ####[facility] [id number] [address] [place] CLINICAL HISTORY Normal [facility] Comment on above: Order Comment: Speci men Type: DEVICE SPECIMENOrdering Facility: [facility] Address: [address] [place] [address] Result Comment: Pre- op diagnosis: Chronic systolic CHF (congestive heart failure) ([facility]) [I50.22] NICM (nonischemic cardiomyopathy) ([facility]) [I42.8] Other mechanical complication of cardiac electrode, initial encounter [T82.190A] Performed By: #### S ####[facility] [id number] [address] [place] DIAGNOSIS COMMENT Microscopic examinat ion of parts A and B demonstrates a calcified fibrous cuff is demonstrated in 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 Normal [facility] Comment on above: Order Comment: Speci men Type: DEVICE SPECIMENOrdering Facility: [facility] Address: [address] [place] [address] Performed By: #### S ####[facility] [id number] [address] [place] FINAL DIAGNOSIS Normal [facility] Comment on above: Order Comment: Speci men Type: DEVICE SPECIMENOrdering Facility: [facility] Address: [address] [place] [address] Result Comment: A. L ead, extraction: -Calcified fibrous cuff. B. Lead extraction: -Calcified fibrous cuff. Performed By: #### S ####[facility] [id number] [address] FINAL PERFORMING LAB Normal [facility] Comment on above: Order Comment: Speci men Type: DEVICE SPECIMENOrdering Facility: [facility] Address: [address] [place] [address] Result Comment: Diag nostic interpretation performed at [facility], [address] [address] CLIA# [id number] Hotel Yardperson: Ramiro Anguiano M.D. Performed By: #### S ####[facility] [id number] [address] GROSS DESCRIPTION A. HARDWARE Normal [facility] Comment on above: Order Comment: Speci men Type: DEVICE SPECIMENOrdering Facility: [facility] Address: [address] [place] [address] Result Comment: Rece ived in formalin, labeled A lead is a segment of lead wire measuring 32.0 cm in length and 0.2 cm in diameter. The tip is present. The screw tip is deployed. A connector pin is not present. The body of the lead is fully insulated. Located 7.0 cm from the tip, a segment of mbci-ksx-ufie soft tissue is present, which measures 6.0 [...] 2023 10:48 AM Gross examination performed at [facility], [address] [place] [address] Performed By: #### S ####[facility] [id number] [address] [place] URINALYSIS, DIPSTICK ONLYon 01-01-2023 Bilirubin Ql (U) Negative Normal Negative [facility] Comment on above: Order Comment: Speci men Type: URINE SPECIMENOrdering Facility: [facility] Address: [address] [place] [address] Performed By: #### U A ####[facility] [id number] [address] [place] Clarity (Unsp spec) Clear Normal Clear [facility] Comment on above: Order Comment: Speci men Type: URINE SPECIMENOrdering Facility: [facility] Address: [address] [place] [address] Performed By: #### U A ####[facility] [id number] [place] [address] [place] Color (U) Yellow Normal Yellow [facility] Comment on above: Order Comment: Speci men Type: URINE SPECIMENOrdering Facility: [facility] Address: [address] [place] [address] Performed By: #### U A ####[facility] [id number] [place] [address] [place] Glucose Test strip (U) [Mass/Vol] Negative Normal Trace, Negative [facility] Comment on above: Order Comment: Speci men Type: URINE SPECIMENOrdering Facility: [facility] Address: [address] [place] [address] Performed By: #### U A ####[facility] LABCL[facility] [id number] [place] [address] [place] Hemoglobin Ql (U) 3+ Abnormal Negative, Trace [facility] Comment on above: Order Comment: Speci men Type: URINE SPECIMENOrdering Facility: [facility] Address: [address] [place] [address] Performed By: #### U A ####[facility] LABCL[facility] [id number] [place] [address] [place] Ketones Ql (U) 2+ Abnormal Trace, Negative [facility] Comment on above: Order Comment: Speci men Type: URINE SPECIMENOrdering Facility: [facility] Address: [address] [place], [place] [address] Performed By: #### U A ####[facility] LABCL[facility] [id number] [place] [address] [place] Leukocyte esterase Test strip Ql (U) 25 Jayleen/uL Normal Negative, 25 Jayleen/uL [facility] Comment on above: Order Comment: Speci men Type: URINE SPECIMENOrdering Facility: [facility] Address: [address] [place], [place] [address] Performed By: #### U A ####[facility] [id number] [place] [address] [place] Nitrite Ql (U) Negative Normal Negative [facility] Comment on above: Order Comment: Speci men Type: URINE SPECIMENOrdering Facility: [facility] Address: [address] [place], [place] [address] Performed By: #### U A ####[facility] [id number] [address] [place] pH (U) 5.5 [pH] Normal 5.0-8.0 [facility] Comment on above: Order Comment: Speci men Type: URINE SPECIMENOrdering Facility: [facility] Address: [address] [place] [address] Performed By: #### U A ####[facility] [id number] [place] [address] [place] Protein (U) [Mass/Vol] 1+ Abnormal Trace, Negative [facility] Comment on above: Order Comment: Speci men Type: URINE SPECIMENOrdering Facility: [facility] Address: [address] [place] [address] Performed By: #### U A ####[facility] [id number] [place] [address] [place] Specific gravity (U) [Rel density] 1.031 High 1.005-1.03 0 [facility] Comment on above: Order Comment: Speci men Type: URINE SPECIMENOrdering Facility: [facility] Address: [address] [place] [address] Performed By: #### U A ####[facility] [id number] [place] [address] [place] Urobilinogen Ql (U) Negative Normal Negative [facility] Comment on above: Order Comment: Speci men Type: URINE SPECIMENOrdering Facility: [facility] Address: [address] [place], [place] [address] Performed By: #### U A ####[facility] [id number] [place] [address] [place] CBC panel Auto (Bld)on 12-30 Erythrocyte distribution width (RBC) [Ratio] 12.8 % Normal 11.5-15.0 [facility] Comment on above: Order Comment: Speci men Type: BLOOD SPECIMENOrdering Facility: [facility] Address: [address] Performed By: #### 5 8410-2 ####[facility] [id number] [address] [place] Hematocrit (Bld) [Volume fraction] 41.2 % Normal 36.0-46.0 [facility] Comment on above: Order Comment: Speci men Type: BLOOD SPECIMENOrdering Facility: [facility] Address: [address] Performed By: #### 5 8410-2 ####[facility] [id number] [place] [address] [place] Hemoglobin (Bld) [Mass/Vol] 14.5 g/dL Normal 11.5-15.5 [facility] Comment on above: Order Comment: Speci men Type: BLOOD SPECIMENOrdering Facility: [facility] Address: [address] Performed By: #### 5 8410-2 ####[facility] [id number] [address] [place] MCH (RBC) [Entitic mass] 30.5 pg Normal 26.0-34.0 [facility] Comment on above: Order Comment: Speci men Type: BLOOD SPECIMENOrdering Facility: [facility] Address: [address] Performed By: #### 5 8410-2 ####[facility] [id number] [place] [address] [place] MCHC (RBC) [Mass/Vol] 35.2 g/dL Normal 30.5-36.0 [facility] Comment on above: Order Comment: Speci men Type: BLOOD SPECIMENOrdering Facility: [facility] Address: [address] Performed By: #### 5 8410-2 ####[facility] [id number] [place] [address] [place] MCV (RBC) [Entitic vol] 86.7 fL Normal 80.0-100.0 [facility] Comment on above: Order Comment: Speci men Type: BLOOD SPECIMENOrdering Facility: [facility] Address: [address] [place] [address] Performed By: #### 5 8410-2 ####[facility] [id number] [place] [address] [place] Nucleated RBC (Bld) [#/Vol] 10*3/uL Normal <0.01 [facility] Comment on above: Order Comment: Speci men Type: BLOOD SPECIMENOrdering Facility: [facility] Address: [address] [place] [address] Performed By: #### 5 8410-2 ####[facility] [id number] [place] [address] [place] Platelet mean volume (Bld) [Entitic vol] 10.9 fL Normal 9.0-12.7 [facility] Comment on above: Order Comment: Speci men Type: BLOOD SPECIMENOrdering Facility: [facility] Address: [address] [place], [place] [address] Performed By: #### 5 8410-2 ####[facility] [id number] [place] [address] [place] Platelets (Bld) [#/Vol] 208 10*3/uL Normal 150-400 [facility] Comment on above: Order Comment: Speci men Type: BLOOD SPECIMENOrdering Facility: [facility] Address: [address] [place], [place] [address] Performed By: #### 5 8410-2 ####[facility] [id number] [place] [address] [place] RBC (Bld) [#/Vol] 4.75 10*6/uL Normal 3.90-5.20 [facility] Comment on above: Order Comment: Speci men Type: BLOOD SPECIMENOrdering Facility: [facility] Address: [address] [place] [address] Performed By: #### 5 8410-2 ####[facility] LABCL[facility] [id number] [place] [address] [place] WBC (Bld) [#/Vol] 5.67 10*3/uL Normal 3.70-11.00 [facility] Comment on above: Order Comment: Speci men Type: BLOOD SPECIMENOrdering Facility: [facility] Address: [address] [place] [address] Performed By: #### 5 8410-2 ####[facility] [id number] [address] [place] CNOVon 12-30-2022 CNOV Office Visit (CARTMN ) CARITO RIOS ([id number]) 1980 F Date Time Provider Department 12/30/22 [...] hx of NICM and resultant HFrEF s/p TEACHERS' ASSISTANT-D in 2008 c/b by recent RV lead [...] Laterality Date PAST SURGICAL HISTORY OF 2008 TEACHERS' ASSISTANT-D PAST SURGICAL HISTORY OF multiple device surgeries [...] ABORHD No (more content not included)... Normal [facility] CONFIRM BLOOD TYPEon 023 ABO O Normal [facility] Comment on above: Order Comment: Speci men Type: BLOOD SPECIMENOrdering Facility: [facility] Address: [address] [place] [address] Performed By: #### C ONABO ####[facility] BANKCLIA [id number] [place] [address] [place] Rh Nom (Bld) Positive Normal [facility] Comment on above: Order Comment: Speci men Type: BLOOD SPECIMENOrdering Facility: [facility] Address: [address] [place] [address] Performed By: #### C ONABO ####[facility] BANKCLIA [id number] [address] [place] [place] [address] [place] CT CARDIAC W IVCONon 12-[address] CARDIAC W IVCON * * [...] ABDOMEN: Postcholecystectomy. Prominent splenic vein BONES: Unremarkable Muffler Installer (topogram) images: No additional findings. IMPRESSION: 1. PPM/ICD device and lead position as described above. There are epicardial wires in the left ventricle tunneled to the ICD device. Jacquard Twine Polisher Operator[facility] Transcribe Date/Time: Dec 30 2022 12:22P Dictated by : WOLF SALCIDO MD This examination was interpreted and the report reviewed and electronically signed by: WOLF SALCIDO MD on Dec 30 2022 12:41PM EST [id number] Normal [facility] Comprehensive metabolic 2000 panelon 12-30-2022 Albumin [Mass/Vol] 4.6 g/dL Normal 3.9-4.9 [facility] Comment on above: Order Comment: Speci men Type: BLOOD SPECIMENOrdering Facility: [facility] Address: [address] [place], [place] [address] Performed By: #### 2 4323-8 ####[facility] [id number] [place] [address] [place] ALP [Catalytic activity/Vol] 61 U/L Normal 34-123 [facility] Comment on above: Order Comment: Speci men Type: BLOOD SPECIMENOrdering Facility: [facility] Address: [address] [address] Performed By: #### 2 4323-8 ####[facility] [id number] [address] [place] ALT [Catalytic activity/Vol] 12 U/L Normal 7-38 [facility] Comment on above: Order Comment: Speci men Type: BLOOD SPECIMENOrdering Facility: [facility] Address: [address] [address] Performed By: #### 2 4323-8 ####[facility] [id number] [place] [address] [place] Anion gap [Moles/Vol] 12 mmol/L Normal 9-18 [facility] Comment on above: Order Comment: Speci men Type: BLOOD SPECIMENOrdering Facility: [facility] Address: [address] [place] [address] Performed By: #### 2 4323-8 ####[facility] [id number] [address] [place] AST [Catalytic activity/Vol] 23 U/L Normal 13-35 [facility] Comment on above: Order Comment: Speci men Type: BLOOD SPECIMENOrdering Facility: [facility] Address: [address] Performed By: #### 2 4323-8 ####[facility] [id number] [place] [address] [place] Bilirubin [Mass/Vol] 0.5 mg/dL Normal 0.2-1.3 [facility] Comment on above: Order Comment: Speci men Type: BLOOD SPECIMENOrdering Facility: [facility] Address: [address] [place] [address] Performed By: #### 2 4323-8 ####[facility] [id number] [place] [address] [place] Calcium [Mass/Vol] 8.9 mg/dL Normal 8.5-10.2 [facility] Comment on above: Order Comment: Speci men Type: BLOOD SPECIMENOrdering Facility: [facility] Address: [address] [place] [address] Performed By: #### 2 4323-8 ####[facility] [id number] [place] [address] [place] Chloride [Moles/Vol] 102 mmol/L Normal 97-105 [facility] Comment on above: Order Comment: Speci men Type: BLOOD SPECIMENOrdering Facility: [facility] Address: [address] [place] [address] Performed By: #### 2 4323-8 ####[facility] [id number] [place] [address] [place] CO2 [Moles/Vol] 24 mmol/L Normal 22-30 [facility] Comment on above: Order Comment: Speci men Type: BLOOD SPECIMENOrdering Facility: [facility] Address: [address] [place], [place] [address] Performed By: #### 2 4323-8 ####[facility] [id number] [place] [address] [place] Creatinine [Mass/Vol] 0.73 mg/dL Normal 0.58-0.96 [facility] Comment on above: Order Comment: Speci men Type: BLOOD SPECIMENOrdering Facility: [facility] Address: [address] [place], [place] [address] Performed By: #### 2 4323-8 ####[facility] [id number] [place] [address] [place] ESTIMATED GLOMERULAR FILTRATION RATE 107 mL/min/1.73m??? Normal >=60 [facility] Comment on above: Order Comment: Speci men Type: BLOOD SPECIMENOrdering Facility: [facility] Address: [address] [address] Result Comment: Suzette mated Glomerular Filtration Rate [...] actual GFR. Performed By: #### 2 4323-8 ####[facility] [id number] [place] [address] [place] Glucose [Mass/Vol] 87 mg/dL Normal 74-99 [facility] Comment on above: Order Comment: Taisha turcios Type: BLOOD SPECIMENOrdering Facility: [facility] Address: [address] [address] Result Comment: The [place] [employer] (ADA) provides guidance for cutoff [...] Standards of Medical Care in Diabetes 2016, [place] [employer]. Diabetes Care. 2016.39(Suppl 1). Performed By: #### 2 4323-8 ####[facility] [id number] [place] [address] [place] Potassium [Moles/Vol] 4.3 mmol/L Normal 3.7-5.1 [facility] Comment on above: Order Comment: Taisha turcios Type: BLOOD SPECIMENOrdering Facility: [facility] Address: [address] [address] Performed By: #### 2 4323-8 ####[facility] [id number] [place] [address] [place] Protein [Mass/Vol] 6.6 g/dL Normal 6.3-8.0 [facility] Comment on above: Order Comment: Taisha turcios Type: BLOOD SPECIMENOrdering Facility: [facility] Address: [address] [place] [address] Performed By: #### 2 4323-8 ####[facility] [id number] [place] [address] [place] Sodium [Moles/Vol] 138 mmol/L Normal 136-144 [facility] Comment on above: Order Comment: Speci tam Type: BLOOD SPECIMENOrdering Facility: [facility] Address: [address] [place] [address] Performed By: #### 2 4323-8 ####[facility] [id number] [address] [place] Urea nitrogen [Mass/Vol] 9 mg/dL Normal 7-21 [facility] Comment on above: Order Comment: Speci tam Type: BLOOD SPECIMENOrdering Facility: [facility] Address: [address] [place] [address] Performed By: #### 2 4323-8 ####[facility] [id number] [place] [address] [place] ECHOon 12-30-2022 Echocardiography Echocardiography Rep ort: Transthoracic Echo [facility] LEXI-2 Date of service: 12/30/2022 2:24:14 PM STRAIGHTENER Ordering physician: DARLING MARTINEZ Indication: NICM, ICD Malfunction Technologist: Bernardino Horta Interpreting physician: Shakir Escobar MD PATIENT: Name: CARITO ROIS : 1980 Age: 42 years Gender: F History of heart failure with hospitalization and cardiomyopathy. Previous cardiovascular interventions: TEACHERS' ASSISTANT-D (2008, 09/21/2022) Primary rhythm: AV Paced. Height: [...] * * Final * * * [facility] Image : [id number] amicsSISUID Normal [facility] HISTORY PHYSICALon HISTORY PHYSICAL HNO ID: [id number] Author: Milo Cordova MD Service: Cardiac Surgery Author Type: Fellow Type: HANDP Filed: 12/30/2022 1:16 PM Note Text: [facility] HISTORY AND PHYSICIAL Carito Rios [id number] ATTENDING PHYSICIAN: Siomara Dutton MD CHIEF COMPLAINT: HPI: This is a 42 year old female who presents for a preoperative evaluation. She is scheduled for a pacemaker lead extraction in OR 79 on 01/01/2023. She has a history of NICM (iman LVEF reportedly 15% 2008), HF, s/p TEACHERS' ASSISTANT-D (2008), s/p multiple generator changes (4) most [...] Laterality Date PAST SURGICAL HISTORY OF 2008 TEACHERS' ASSISTANT-D PAST SURGICAL HISTORY OF multiple device surgeries [...] recent image (more content not included)... Normal [facility] PT panel Coag (PPP)on 2022 INR Coag (PPP) [Relative time] 1.0 {INR} Normal 0.9-1.3 [facility] Comment on above: Order Comment: Taisha turcios Type: BLOOD SPECIMENOrdering Facility: [facility] Address: [address] [place], [place] [address] Result Comment: Cecilia min K Antagonist (VKA) Therapeutic Range: INR 2 to 3 (Target INR of 2.5) Note: For patients treated with VKA drugs, such as warfarin, the [place] [employer] 2012 Guideline recommends [...] 2.5 to 3.5 (target INR of 3). Luistt GH, et al. Chest 2012, 141:7S-47S Nelson RA, et al. [facility] 2017, 70: 252-289 Performed By: #### 3 4528-0 ####[facility] [id number] [place] [address] [place] PT Coag (PPP) [Time] 10.3 s Normal 9.7-13.0 [facility] Comment on above: Order Comment: Taisha turcios Type: BLOOD SPECIMENOrdering Facility: [facility] Address: [place] [address] Performed By: #### 3 4528-0 ####[facility] [id number] [place] [id number] [place] TYPE AND SCREEN,30 DAYon ABO O Normal [facility] Comment on above: Order Comment: Speci men Type: BLOOD SPECIMENOrdering Facility: [facility] Address: [address] [address] Performed By: #### T SCR30 ####CC MAIN BLOOD BANKCLIA [id number] [address] HISTORICAL AB SCR STATUS Negative Normal [facility] Comment on above: Order Comment: Speci men Type: BLOOD SPECIMENOrdering Facility: [facility] Address: [address] [place] [address] Performed By: #### T SCR30 ####CC MAIN BLOOD BANKCLIA [id number] [address] Rh Nom (Bld) Positive Normal [facility] Comment on above: Order Comment: Speci men Type: BLOOD SPECIMENOrdering Facility: [facility] Address: [address] [address] Performed By: #### T SCR30 ####CC MAIN BLOOD BANKCLIA [id number] [address] XR CHEST 2V FRONTAL/LATon XR CHEST 2V [...] Minimal spine degenerative changes IMPRESSION: See result Jacquard Twine Polisher Operator: PSCB Transcribe Date/Time: Dec 30 2022 1:46P Dictated by : CHRISTINA DORSEY MD This examination was interpreted and the report reviewed and electronically signed by: CHRISTINA DORSEY MD on Dec 30 2022 1:50PM EST [id number] Normal [facility] CNPNon 12-24-2022 CNPN Telephone (CARDMN) CARITO RIOS ([id number]) 1980 F Date Time Provider Department 12/24/22 NETO DEMARCO During your visit today, we recorded the following information about you: Meka Garcia 12/24/2022 6:49 AM Signed Outside medical records scanned into [employer]. Patient scheduled for procedure with Dr. Darling Martinez on January 01, 2023. Sharon Tanner RN 12/25/2022 9:[address] Demarco reviewed tracings from [employer]. Mostly noise/artifact. No changes prior to procedure [...] Reason for Visit: Received Outside Medical Records [[id number]] Prescriptions as of 12/25/2022 - iv contrast [...] Encounter Status:Closed by SHARON TANNER on 12/25/22 [facility] Tracy 12-23-2022 DEMONDN Telephone (CARDMN) CARITO RIOS ([id number]) 1980 F Date Time Provider Department 12/23/22 NETO DEMARCO During your visit today, we recorded the following information about you: Mary Kumarramandeep 12/23/2022 8:18 AM Signed December 23, 2022 Patient Contact Number: [phone] (home) [phone] (cell) Patient last seen within the last year: Yes Reason for Call: Device Issue: PLEASE ROUTE TO DEVICE CLINIC POOL Patient called in and states the monitor has been alarming (at work almost 25 times during the day). She contacted the monitor company and they advised that the machine is fine so the alarm is due to her heart. Please contact [facility]. Thank you, Mary Muniz, Admin Marianna Marvin 12/23/2022 1:30 PM Signed Aaron with [employer] is returning a call from [phone]. For Phoebe. [place]oug [place] Allergies As of Date: 12/23/2022 Noted Allergy [...] Encounter Status:Closed by MARIANNA WONG on 12/23/22 [facility] Telephone ([facility]) CARITO RIOS ([id number]) 1980 F Date Time Provider Department 12/23/22 NETO DEMARCO [facility] During your visit today, we recorded the [...] Status:Closed by AMI VELAZQUEZ RN on 12/23/22 [facility] 12-14-2022 [facility] Telephone ([facility]) CARITO RIOS ([id number]) 1980 F Date Time Provider Department 12/14/22 NETO DEMARCO During your visit today, we [...] OUTSIDE RECORDS: none enter date uploaded to [employer] AND scanned AMBULATORY TESTING: OPD consult w/EP [...] [T82.110A] Order(s):BASIC METABOLIC PNL [SQBMP] Order #: [id number] FUTURE CBC [SQCBC] Order #: [id number] FUTURE TYPE AND SCREEN,30 DAY [QHDLFK69] Order #: [id number] FUTURE CONFIRM BLOOD TYPE [SQCONABO] Order #: [id number] FUTURE XR CHEST 2V FRONTAL/LAT [[id number]] Order #: [id number] FUTURE Prescriptions as of 12/14/2022 - ALPRAZolam [...] Encounter Status:Closed by [facility]RENA ROTH [facility] (CARDMN ) CARITO RIOS ([id number]) 1980 F Date Time Provider Department 12/11/22 2:45 PM NETO DEMARCO During your visit today, we recorded the following information about you: Pulse Blood pressure Weight Height 60/minute 111/70 89.8 kg 1.753 m Neto Demarco MD 12/11/2022 4:12 PM Signed [facility] [place] [facility] Department of Cardiovascular Medicine SECTION OF CARDIAC PACING and ELECTROPHYSIOLOGY OUTPATIENT VISIT DATE December 11, 2022 OUTPATIENT VISIT TYPE NEW PRIMARY CARE PHYSICIAN: Rock Dunbar MD [place], [place] [employer] Machine Operator Jass June MD [place], [place] CHIEF COMPLAINT: BiV ICD, ICD lead failure HISTORY OF PRESENT ILLNESS: Carito Rios is a 42 y/o female who presents for evaluation for lead malfunction. She has a history of NICM (iman LVEF reportedly 15% 2008), HF, s/p TEACHERS' ASSISTANT-D (2008), s/p multiple generator changes (4) most [...] to have RV lead noise with oversensing. [place] to be likely due to ICD coil [...] Laterality Date PAST SURGICAL HISTORY OF 2009 TEACHERS' ASSISTANT-D PAST SURGICAL HISTORY OF multiple device surgeries [...] the wor (more content not included)... Normal [facility] ECG COMPLETEon 12-11-2022 ECG COMPLETE Ventricular Rate : 6 0 BPM Atrial Rate : 60 BPM P-R Interval : 146 ms QRS Duration : 154 ms Q-T Interval : 460 ms QTC Calculation(Bazett) : 460 ms Calculated P [place] : 108 degrees Calculated R [place] : -125 degrees Calculated T [place] : 37 degrees AV DUAL-PACED RHYTHM BIVENTRICULAR PACEMAKER DETECTED ABNORMAL ECG Confirmed by MD GREWAL TAMANNA ([id number]) on 12/14/2022 4:37:01 PM NAME : CARITO RIOS PID : [id number] : 1980 Gender : Female Race : ORD : [id number] Procedure Date : Dec 11 2022 14:12:29 Edit Date : Dec 14 2022 16:37:03 Diagnosis: AV DUAL-PACED RHYTHM BIVENTRICULAR PACEMAKER DETECTED ABNORMAL ECG Confirmed by MD GREWAL TAMANNA ([id number]) on 12/14/2022 4:37:01 PM Test Reason : Location : [address] [address] Overread By : MD GREWAL TAMANNA Edited By : MD GREWAL TAMANNA Referred By : , Acquired by : SEB SCHULZ Normal [facility] ICD CLINIC CHECKon 3 AV Delay Adaptive Paced Minimum (ms) 140 ms [facility] AV Delay Adaptive Rate Maximum (bpm) 130 {beats}/min [facility] AV Delay Adaptive Rate Minimum (bpm) 90 {beats}/min [facility] AV Delay Adaptive Sensed Minimum (ms) 90 ms [facility] AV Delay Adaptive Status Medium [facility] AV Delay Paced (ms) 90 ms [facility] AV Delay Sensed (ms) 90 ms [facility] Ricki LV Pacing Amplitude (volts) 3.5 V [facility] Ricki LV Pacing Polarity BI [facility] Ricki LV Pacing Pulse Width (ms) 0.5 ms [facility] Ricki RA Pacing Amplitude (volts) 2.0 V [facility] Ricki RA Pacing Polarity BI [facility] Ricki RA Pacing Pulse Width (ms) 0.5 ms [facility] Ricki RA Sensing Amplitude (mvolts) 0.3 mV [facility] Ricki RA Sensing Blanking Period (ms) 90 ms [facility] Ricki RA Sensing Polarity BI [facility] Ricki RA Sensing Refractory Period (ms) 190 ms [facility] Ricki RV Pacing Amplitude (volts) 2.375 [facility] Ricki RV Pacing Polarity BI [facility] Ricki RV Pacing Pulse Width (ms) 0.5 ms [facility] Ricki RV Sensing Amplitude (mvolts) 0.5 mV [facility] Ricki RV Sensing Blanking Period (ms) 52 ms [facility] Ricki RV Sensing Polarity BI [facility] ICD FastVT DetectionStatus DISABLED [facility] ICD-AMS EPISODES 170 {beats}/min [facility] ICD-ATP Episodes (Vent) 0 [facility] ICD-Ricki RV Sensing Refractory Period (ms) 220 ms [facility] ICD-Device Mfg STJ [facility] ICD-FALLBACKRATE_B PM 70 {beats}/min [facility] ICD-Hysteresis Rate Off [facility] ICD-LEADIMPEDANCEA TRIAL 325.0 ohm [facility] ICD-Percent Pacing (Atrial) 30.0 % [facility] ICD-Percent Pacing (Vent) 90.0 % [facility] ICD-PMT Intervention Atrial Pace [facility] ICD-PVC Intervention Off [facility] ICD-Rate Modulation Acceleration Reaction Fast [facility] ICD-Rate Modulation Deceleration Medium [facility] ICD-Rate Modulation Mcintosh 8 [facility] ICD-Rate Modulation Threshold Auto (+0.0) [facility] ICD-Rhythm Sinus Rhythm [facility] ICD-Shocks Aborted (Vent) 0 [facility] VIY-AZNYTV-XZVPLTO ED 0 [facility] ICD-SHOCKSABORTED 0 [facility] ICD-SHOCKSDELIVERE DVENTRICULAR 0 [facility] ICD-Ventricular Fibrillation 0 [facility] Implant Date 09/21/2022 [facility] Implant Date 03/04/2009 [facility] Lead Impedance (LV) 187.5 ohm [facility] Lead Impedance (RV) 362.5 ohm [facility] Lead Impedance High Voltage 74.25 ohm [facility] Lead1 Mfg STJ [facility] Lead2 Mfg STJ [facility] Lead3 Mfg STJ [facility] Location RA [facility] Location RV [facility] Location LV [facility] Lower Rate (bpm) 60 {beats}/min [facility] Max Sensor Rate (bpm) 130 {beats}/min [facility] MDT_PROG_TACHY_ZON E_DETECTIONS_STATU S DISABLED [facility] Model 3357-40C Unify Assura [facility] Model 1888TC Tendril ST Optim C [facility] Model 7122 Durata [facility] Model [id number] [facility] Pacemaker Dependent? NO [facility] Pacing Mode DDDR [facility] Serial Number [id number] [facility] Serial Number [id number] [facility] Serial Number [id number] [facility] Serial Number [id number] [facility] Test Charge Time 7.875 [facility] Thresh LV Capture Amplitude (volts) 3 V [facility] Thresh LV Capture Duration (ms) 0.5 ms [facility] Thresh RA Capture Amplitude (volts) 1 V [facility] Thresh RA Capture Duration (ms) 0.5 ms [facility] Thresh RA Sensing Amplitude (mvolts) 2.1 mV [facility] Thresh RV Capture Amplitude (VOLTS) 2 V [facility] Thresh RV Capture Duration (MS) 0.5 ms [facility] Thresh RV Sensing Amplitude (MVOLTS) 6.7 mV [facility] Tracking Rate (bpm) 130 {beats}/min [facility] VF Zone Detection Interval 300 ms [facility] No Panel Informationon 12-11 BLANK _ [facility] Implant Date 02/13/2009 [facility] Tracy 11-24-2022 LIZET Telephone (CARDMN) CARITO RIOS ([id number]) 1980 F Date Time Provider Department 11/24/22 NETO DEMARCO During your visit today, we recorded the following information about you: Page Almaguer [facility] 11/24/2022 4:01 PM Signed Documentation scanned into EP outside records database. Allergies As of Date: 11/24/2022 (Not on File) Date Reviewed: Never Reviewed Reason for Visit: Received Outside Medical Records [[id number]] Cmt: Referral AND MR Problem List As Of Date: 11/24/2022 (None) Encounter Status:Closed by PAGE MULLIGAN on 11/24/22 Normal [facility] CBC W MANUAL DIFFon 09-25-19 23 ATYPICAL LYMPH # Normal [facility] Comment on above: Performed By: #### B MP #### [facility] [address] [place] [address] Dr. Tien Osorio ATYPICAL LYMPH % Normal [facility] Comment on above: Performed By: #### B MP #### [facility] [address] [place] [address] Dr. Tien Osorio BAND # 0.0 103/ul Normal 0.0-0.3 [facility] Comment on above: Performed By: #### B MP #### [facility] [address] [place] [address] Dr. Tien Osorio BAND % 0 % Normal 0-5 [facility] Comment on above: Performed By: #### B MP #### [facility] [address] [place] [address] Dr. Tien Osorio BASOM # 0.00 103/ul Normal 0.00-0.10 [facility] Comment on above: Performed By: #### B MP #### [facility] [address] [place] [address] Dr. Tien Osorio BASOM % 0.0 % Critically low 0.2-2.0 [facility] Comment on above: Performed By: #### B MP #### [facility] [address] [place] [address] Dr. Tien Osorio BLAST # Normal [facility] Comment on above: Performed By: #### B MP #### [facility] [address] [place] [address] Dr. Tien Osorio BLAST % Normal [facility] Comment on above: Performed By: #### B MP #### [facility] [address] [place] [address] Dr. Tien Osorio CORRECTED WBC Normal 4.0-11.0 [facility] Comment on above: Performed By: #### B MP #### [facility] [address] [place] [address] Dr. Tien Osorio EOS # 0.08 103/ul Normal 0.00-0.70 [facility] Comment on above: Performed By: #### B MP #### [facility] [address] [place] [address] Dr. Tien Osorio EOS% 2.0 % Normal 0.9-7.0 [facility] Comment on above: Performed By: #### B MP #### [facility] [address] [place] [address] Dr. Tien Osorio HCT 36.0 % Normal 36.0-48.0 [facility] Comment on above: Performed By: #### B MP #### [facility] [address] [place] [address] Dr. Tien Osorio HGB 12.7 g/dl Normal 12.0-16.0 [facility] Comment on above: Performed By: #### B MP #### [facility] [address] [place] [address] Dr. Tien Osorio LYMPHM # 0.41 103/ul Critically low 1.20-3.80 [facility] Comment on above: Performed By: #### B MP #### [facility] [address] [place] [address] Dr. Tien Osorio LYMPHM% 10.0 % Critically low 20.5-60.0 [facility] Comment on above: Performed By: #### B MP #### [facility] [address] [place] [address] Dr. Tien Osorio MCH 30.4 pg Normal 26.7-34.0 [facility] Comment on above: Performed By: #### B MP #### [facility] [address] [place] [address] Dr. Tien Osorio MCHC 35.3 g/dl Critically high 29.9-35.2 [facility] Comment on above: Performed By: #### B MP #### [facility] [address] [place] [address] Dr. Tien Osorio MCV 86.1 fL Normal 81.0-99.0 [facility] Comment on above: Performed By: #### B MP #### [facility] [address] [place] [address] Dr. Tien Osorio METAMYELOCYTE # Normal [facility] Comment on above: Performed By: #### B MP #### [facility] [address] [place] [address] Dr. Tien Osorio METAMYELOCYTE % Normal [facility] Comment on above: Performed By: #### B MP #### [facility] [address] [place] [address] Dr. Tien Osorio MONOM# 0.16 103/ul Critically low 0.30-0.80 [facility] Comment on above: Performed By: #### B MP #### [facility] [address] [place] [address] Dr. Tien Osorio MONOM% 4.0 % Normal 1.7-12.0 [facility] Comment on above: Performed By: #### B MP #### [facility] [address] [place] [address] Dr. Tien Osorio MPV 10.1 fL Normal 9.5-13.5 [facility] Comment on above: Performed By: #### B MP #### [facility] [address] [place] [address] Dr. Tien Osorio MYELOCYTE # Normal [facility] Comment on above: Performed By: #### B MP #### [facility] [address] [place] [address] Dr. Tien Osorio MYELOCYTE % Normal [facility] Comment on above: Performed By: #### B MP #### [facility] [address] [place] [address] Dr. Tien Osorio NRBC Normal [facility] Comment on above: Performed By: #### B MP #### [facility] [address] [address] [address] Tien Osorio PLT 192 103/ul Normal 150-450 [facility] Comment on above: Performed By: #### B MP #### [facility] [address] [place] [address] Dr. Tien Osorio RBC 4.18 106/ul Critically low 4.20-5.40 [facility] Comment on above: Performed By: #### B MP #### [facility] [address] [place] [address] Dr. Tien Osorio RDW 12.9 % Normal 11.0-15.0 [facility] Comment on above: Performed By: #### B MP #### [facility] [address] [place] [address] Dr. Tien Osorio SEG # 3.44 103/ul Normal 1.40-6.50 [facility] Comment on above: Performed By: #### B MP #### [facility] [address] [place] [address] Dr. Tien Osorio SEG % 84.0 % Critically high 43.0-75.0 [facility] Comment on above: Performed By: #### B MP #### [facility] [address] [place] [address] Dr. Tien Osorio WBC 4.1 103/ul Normal 4.0-11.0 [facility] Comment on above: Performed By: #### B MP #### [facility] [address] [place] [address] Dr. Tien Osorio CTA CHEST WO W [...] ALICEA Date: 2022-09-24 13:35 Normal [facility] PROF CHEM 8 (BAS METB)on Anion gap [Moles/Vol] 11.7 mmol/L Normal [facility] Comment on above: Performed By: #### B MP #### [facility] [address] [place] [address] Dr. Tien Osorio Calcium [Mass/Vol] 8.0 mg/dL Critically low 8.5-10.1 [facility] Comment on above: Performed By: #### B MP #### [facility] [address] [address] [address] Tien Osorio Chloride [Moles/Vol] 105 mmol/L Normal 98-107 [facility] Comment on above: Performed By: #### B MP #### [facility] [address] [address] [address] Tien Osorio CO2 [Moles/Vol] 25.0 mmol/L Normal 21.0-32.0 [facility] Comment on above: Performed By: #### B MP #### [facility] [address] [address] [address] Tien Osorio Creatinine [Mass/Vol] 0.61 mg/dL Normal 0.55-1.02 [facility] Comment on above: Performed By: #### B MP #### [facility] [address] [address] [address] Tien Osorio EGFR-AF GUATEMALAN >60 Normal >=60 [facility] Comment on above: Performed By: #### B MP #### [facility] [address] [address] [address] Tien Osorio EGFR-NON AF GUATEMALAN >60 Normal >=60 [facility] Comment on above: Performed By: #### B MP #### [facility] [address] [address] [address] Tien Osorio Glucose [Mass/Vol] 116 mg/dL Critically high 74-106 T [facility] Comment on above: Performed By: #### B MP #### [facility] [address] [address] [address] Tien Osorio Potassium [Moles/Vol] 3.7 mmol/L Normal 3.5-5.1 [facility] Comment on above: Performed By: #### B MP #### [facility] [address] [place] [address] Dr. Tien Osorio Sodium [Moles/Vol] 138 mmol/L Normal 136-145 [facility] Comment on above: Performed By: #### B MP #### [facility] [address] [place] [address] Dr. Tien Osorio Urea nitrogen [Mass/Vol] 4.0 mg/dL Critically low 7.0-18.0 [facility] Comment on above: Performed By: #### B MP #### [facility] [address] [place] [address] Dr. Tien Osorio Urea nitrogen/Creatinin e [Mass ratio] 6.6 mg/mg Normal [facility] Comment on above: Performed By: #### B MP #### [facility] [address] [place] [address] Dr. Tien Osorio CBC W MANUAL DIFFon 09-17-19 23 ATYPICAL LYMPH # Normal [facility] Comment on above: Performed By: #### C BCMAN #### [facility] [address] [place] [address] Dr. Tien Osorio ATYPICAL LYMPH % Normal [facility] Comment on above: Performed By: #### C BCMAN #### [facility] [address] [place] [address] Dr. Tien Osorio BAND # Normal 0.0-0.3 [facility] Comment on above: Performed By: #### C LIDIA #### [facility] [address] [place] [address] Dr. Tien Osorio BAND % Normal 0-5 [facility] Comment on above: Performed By: #### C LIDIA #### [facility] [address] [place] [address] Dr. Tien Osorio BASOM # 0.00 103/ul Normal 0.00-0.10 [facility] Comment on above: Performed By: #### C LIDIA #### [facility] [address] [place] [address] Dr. Tien Osorio BASOM % 0.0 % Critically low 0.2-2.0 [facility] Comment on above: Performed By: #### C LIDIA #### [facility] [address] [place] [address] Dr. Tien Osorio BLAST # Normal [facility] Comment on above: Performed By: #### C LIDIA #### [facility] [address] [place] [address] Dr. Tien Osorio BLAST % Normal [facility] Comment on above: Performed By: #### C LIDIA #### [facility] [address] [place] [address] Dr. Tien Osorio CORRECTED WBC Normal 4.0-11.0 [facility] Comment on above: Performed By: #### C LIDIA #### [facility] [address] [place] [address] Dr. Tien Osorio EOS # 0.05 103/ul Normal 0.00-0.70 [facility] Comment on above: Performed By: #### C LIDIA #### [facility] [address] [place] [address] Dr. Tien Osorio EOS% 1.0 % Normal 0.9-7.0 [facility] Comment on above: Performed By: #### C LIDIA #### [facility] [address] [place] [address] Dr. Tien Osorio HCT 38.6 % Normal 36.0-48.0 [facility] Comment on above: Performed By: #### C LIDIA #### [facility] [address] [address] [address] Tien Osorio HGB 13.8 g/dl Normal 12.0-16.0 [facility] Comment on above: Performed By: #### C LIDIA #### [facility] [address] [address] [address] Tien Osorio LYMPHM # 0.73 103/ul Critically low 1.20-3.80 [facility] Comment on above: Performed By: #### C LIDIA #### [facility] [address] [place] [address] Dr. Tien Osorio LYMPHM% 15.0 % Critically low 20.5-60.0 [facility] Comment on above: Performed By: #### C LIDIA #### [facility] [address] [place] [address] Dr. Tien Osorio MCH 30.8 pg Normal 26.7-34.0 [facility] Comment on above: Performed By: #### C LIDIA #### [facility] [address] [place] [address] Dr. Tien Osorio MCHC 35.8 g/dl Critically high 29.9-35.2 [facility] Comment on above: Performed By: #### C LIDIA #### [facility] [address] [place] [address] Dr. Tien Osorio MCV 86.2 fL Normal 81.0-99.0 [facility] Comment on above: Performed By: #### C LIDIA #### [facility] [address] [place] [address] Dr. Tien Osorio METAMYELOCYTE # Normal [facility] Comment on above: Performed By: #### C LIDIA #### [facility] [address] [place] [address] Dr. Tien Osorio METAMYELOCYTE % Normal [facility] Comment on above: Performed By: #### C LIDIA #### [facility] [address] [place] [address] Dr. Tien Osorio MONOM# 0.39 103/ul Normal 0.30-0.80 [facility] Comment on above: Performed By: #### C BCBRENDA #### [facility] [address] [place] [address] Dr. Tien Osorio MONOM% 8.0 % Normal 1.7-12.0 [facility] Comment on above: Performed By: #### C LIDIA #### [facility] [address] [place] [address] Dr. Tien Osorio MPV 9.8 fL Normal 9.5-13.5 [facility] Comment on above: Performed By: #### C BCBRENDA #### [facility] [address] [place] [address] Dr. Tien Osorio MYELOCYTE # Normal [facility] Comment on above: Performed By: #### C LIDIA #### [facility] [address] [place] [address] Dr. Tien Osorio MYELOCYTE % Normal [facility] Comment on above: Performed By: #### C LIDIA #### [facility] [address] [place] [address] Dr. Tien Osorio NRBC Normal [facility] Comment on above: Performed By: #### C LIDIA #### [facility] [address] [place] [address] Dr. Tien Osorio PLT 201 103/ul Normal 150-450 [facility] Comment on above: Performed By: #### C LIDIA #### [facility] [address] [place] [address] Dr. Tien Osorio RBC 4.48 106/ul Normal 4.20-5.40 [facility] Comment on above: Performed By: #### C LIDIA #### [facility] [address] [place] [address] Dr. Tien Osorio RDW 12.9 % Normal 11.0-15.0 [facility] Comment on above: Performed By: #### C BCBRENDA #### [facility] [address] [place] [address] Dr. Tien Osorio SEG # 3.72 103/ul Normal 1.40-6.50 [facility] Comment on above: Performed By: #### C BCMAN #### [facility] [address] [address] [address] Tien Osorio SEG % 76.0 % Critically high 43.0-75.0 [facility] Comment on above: Performed By: #### C BCMAN #### [facility] [address] [place] [address] Dr. Tien Osorio WBC 4.9 103/ul Normal 4.0-11.0 [facility] Comment on above: Performed By: #### C BCMAN #### [facility] [address] [place] [address] Dr. Tien Osorio PROF CHEM 8 (BAS METB)on Anion gap [Moles/Vol] 13.6 mmol/L Normal [facility] Comment on above: Performed By: #### B MP #### [facility] [address] [place] [address] Dr. Tien Osorio Calcium [Mass/Vol] 9.1 mg/dL Normal 8.5-10.1 [facility] Comment on above: Performed By: #### B MP #### [facility] [address] [place] [address] Dr. Tien Osorio Chloride [Moles/Vol] 105 mmol/L Normal 98-107 [facility] Comment on above: Performed By: #### B MP #### [facility] [address] [place] [address] Dr. Tien Osorio CO2 [Moles/Vol] 27.6 mmol/L Normal 21.0-32.0 [facility] Comment on above: Performed By: #### B MP #### [facility] [address] [place] [address] Dr. Tien Osorio Creatinine [Mass/Vol] 0.72 mg/dL Normal 0.55-1.02 [facility] Comment on above: Performed By: #### B MP #### [facility] [address] [place] [address] Dr. Tien Osorio EGFR-AF GUATEMALAN >60 Normal >=60 [facility] Comment on above: Performed By: #### B MP #### [facility] [address] [address] [address] Tien Osorio EGFR-NON AF GUATEMALAN >60 Normal >=60 [facility] Comment on above: Performed By: #### B MP #### [facility] [address] [address] [address] Tien Osorio Glucose [Mass/Vol] 92 mg/dL Normal 74-106 [facility] Comment on above: Performed By: #### B MP #### [facility] [address] [address] [address] Tien Osorio Potassium [Moles/Vol] 4.2 mmol/L Normal 3.5-5.1 [facility] Comment on above: Performed By: #### B MP #### [facility] [address] [address] [address] Tien Osorio Sodium [Moles/Vol] 142 mmol/L Normal 136-145 [facility] Comment on above: Performed By: #### B MP #### [facility] [address] [address] [address] Tien Osorio Urea nitrogen [Mass/Vol] 8.0 mg/dL Normal 7.0-18.0 [facility] Comment on above: Performed By: #### B MP #### [facility] [address] [address] [address] Tien Osorio Urea nitrogen/Creatinin e [Mass ratio] 11.1 mg/mg Normal [facility] Comment on above: Performed By: #### B MP #### [facility] [address] [address] [address] Tien Osorio ECHOCARDIO M/2D COMPLETEon 0 08-31-2022 ECHOCARDIO M/2D COMPLETE Patient: CARITO RIOS Exam Date: 08/31/2022 : 1980 Gender:F Ordering : EVELYN HERNANDEZS Admission #: [id number] Family : Order #: [id number] CLICK HERE TO VIEW EXAM ECHOCARDIOGRAM REPORT [...] on 09/01/2022 at 11:58 Normal [facility] VIT D 25-OH LABCORPon 2021 Vitamin D, 25-Hydroxy 14.0 ng/mL Critically low 30.0-100.0 [facility] Comment on above: Result Comment: Cecilia min D deficiency has been defined by the [place] of [employer] and an Endocrine Society practice guideline as a level of serum 25-OH vitamin D less than 20 ng/mL (1,2). The Endocrine Society went on to further define vitamin D insufficiency as a level between 21 and 29 ng/mL (2). 1. IOM ([place] of [employer]). 2010. Dietary reference intakes for calcium and D. [place]: The National Academies Press. 2. Joel MF, Abi [place], Isaiah-Mino SUMMERS, et al. Evaluation, treatment, and prevention of vitamin D deficiency: an Endocrine Society clinical practice guideline. JCEM. 2010; 96(7):1911-30. Performed By: #### B MP #### [facility] [address] [place] [address] Dr. Tien Osorio CBC W MANUAL DIFFon 02-17-20 22 ATYPICAL LYMPH # Normal [facility] Comment on above: Performed By: #### B MP #### [facility] [address] [place] [address] Dr. Tien Osorio ATYPICAL LYMPH % Normal [facility] Comment on above: Performed By: #### B MP #### [facility] [address] [place] [address] Dr. Tien Osorio BAND # 0.0 103/ul Normal 0.0-0.3 [facility] Comment on above: Performed By: #### B MP #### [facility] [address] [place] [address] Dr. Tien Osorio BAND % 0 % Normal 0-5 [facility] Comment on above: Performed By: #### B MP #### [facility] [address] [place] [address] Dr. Tien Osorio BASOM # 0.00 103/ul Normal 0.00-0.10 [facility] Comment on above: Performed By: #### B MP #### [facility] [address] [place] [address] Dr. Tien Osorio BASOM % 0.0 % Critically low 0.2-2.0 [facility] Comment on above: Performed By: #### B MP #### [facility] [address] [place] [address] Dr. Tien Osorio BLAST # Normal [facility] Comment on above: Performed By: #### B MP #### [facility] [address] [place] [address] Dr. Tien Osorio BLAST % Normal [facility] Comment on above: Performed By: #### B MP #### [facility] [address] [place] [address] Dr. Tien Osorio CORRECTED WBC Normal 4.0-11.0 [facility] Comment on above: Performed By: #### B MP #### [facility] [address] [place] [address] Dr. Tien Osorio EOS # 0.05 103/ul Normal 0.00-0.70 [facility] Comment on above: Performed By: #### B MP #### [facility] [address] [place] [address] Dr. Tien Osorio EOS% 1.0 % Normal 0.9-7.0 [facility] Comment on above: Performed By: #### B MP #### [facility] [address] [place] [address] Dr. Tien Osorio HCT 37.4 % Normal 36.0-48.0 [facility] Comment on above: Performed By: #### B MP #### [facility] [address] [place] [address] Dr. Tien Osorio HGB 12.5 g/dl Normal 12.0-16.0 [facility] Comment on above: Performed By: #### B MP #### [facility] [address] [place] [address] Dr. Tien Osorio LYMPHM # 0.41 103/ul Critically low 1.20-3.80 [facility] Comment on above: Performed By: #### B MP #### [facility] [address] [place] [address] Dr. Tien Osorio LYMPHM% 8.0 % Critically low 20.5-60.0 [facility] Comment on above: Performed By: #### B MP #### [facility] [address] [place] [address] Dr. Tien Osorio MCH 29.8 pg Normal 26.7-34.0 [facility] Comment on above: Performed By: #### B MP #### [facility] [address] [place] [address] Dr. Tien Osorio MCHC 33.4 g/dl Normal 29.9-35.2 [facility] Comment on above: Performed By: #### B MP #### [facility] [address] [place] [address] Dr. Tien Osorio MCV 89.3 fL Normal 81.0-99.0 [facility] Comment on above: Performed By: #### B MP #### [facility] [address] [place] [address] Dr. Tien Osorio METAMYELOCYTE # Normal [facility] Comment on above: Performed By: #### B MP #### [facility] [address] [address] [address] Tien Osorio METAMYELOCYTE % Normal [facility] Comment on above: Performed By: #### B MP #### [facility] [address] [address] [address] Tien Osorio MONOM# 0.15 103/ul Critically low 0.30-0.80 [facility] Comment on above: Performed By: #### B MP #### [facility] [address] [place] [address] Dr. Tien Osorio MONOM% 3.0 % Normal 1.7-12.0 [facility] Comment on above: Performed By: #### B MP #### [facility] [address] [place] [address] Dr. Tien Osorio MPV 10.7 fL Normal 9.5-13.5 [facility] Comment on above: Performed By: #### B MP #### [facility] [address] [place] [address] Dr. Tien Osorio MYELOCYTE # Normal [facility] Comment on above: Performed By: #### B MP #### [facility] [address] [place] [address] Dr. Tien Osorio MYELOCYTE % Normal [facility] Comment on above: Performed By: #### B MP #### [facility] [address] [place] [address] Dr. Tien Osorio NRBC Normal [facility] Comment on above: Performed By: #### B MP #### [facility] [address] [place] [address] Dr. Tien Osorio PLT 166 103/ul Normal 150-450 [facility] Comment on above: Performed By: #### B MP #### [facility] [address] [place] [address] Dr. Tien Osorio RBC 4.19 106/ul Critically low 4.20-5.40 [facility] Comment on above: Performed By: #### B MP #### [facility] [address] [address] [address] Tien Osorio RDW 14.6 % Normal 11.0-15.0 [facility] Comment on above: Performed By: #### B MP #### [facility] [address] [place] [address] Dr. Tien Osorio SEG # 4.49 103/ul Normal 1.40-6.50 [facility] Comment on above: Performed By: #### B MP #### [facility] [address] [place] [address] Dr. Tien Osorio SEG % 88.0 % Critically high 43.0-75.0 [facility] Comment on above: Performed By: #### B MP #### [facility] [address] [place] [address] Dr. Tien Osorio WBC 5.1 103/ul Normal 4.0-11.0 [facility] Comment on above: Performed By: #### B MP #### [facility] [address] [place] [address] Dr. Tien Osorio FREE T3on 02-16-2022 FREE T3 1.83 pg/mlL Critically low 2.18-3.98 [facility] Comment on above: Performed By: #### B MP, LIPID, FT3, LIVER, TSH #### [facility] [address] [place] [address] Dr. Tien Osorio FREE T4on 02-16-2022 Free T4 [Mass/Vol] 1.08 ng/dL Normal 0.76-1.46 [facility] Comment on above: Performed By: #### B MP #### [facility] [address] [place] [address] Dr. Tien Osorio GLYCOHEMOGLOBIN A1Con 2021 ADA RECOMMENDATION SEE BELOW Normal [facility] Comment on above: Result Comment: ADA RECOMMENDED LIMIT 4.0 - 6.0 ADA THERAPEUTIC TARGET < 7.0 ACTION SUGGESTED > 7.0 Performed By: #### B MP, LIPID, FT3, LIVER, TSH #### [facility] [address] [place] [address] Dr. Tien Osorio Glucose [Mass/Vol] 82 mg/dL Normal [facility] Comment on above: Performed By: #### B MP, LIPID, FT3, LIVER, TSH #### [facility] [address] [place] [address] Dr. Tien Osorio HbA1c (Bld) [Mass fraction] 4.5 % Normal 4.5-6.2 [facility] Comment on above: Performed By: #### B MP, LIPID, FT3, LIVER, TSH #### [facility] [address] [place] [address] Dr. Tien Osorio LIPID PROFILEon 02-16-2022 CHOL-HDL RATIO NORM SEE BELOW Normal [facility] Comment on above: Result Comment: 3.3 - 4.4 LOW RISK 4.4 - 7.1 AVERAGE RISK 7.1 - 11.0 MODERATE RISK >11.0 HIGH RISK Performed By: #### B MP, LIPID, FT3, LIVER, TSH #### [facility] [address] [place] [address] Dr. Tien Osorio Cholesterol [Mass/Vol] 151 mg/dL Normal <=200 [facility] Comment on above: Performed By: #### B MP, LIPID, FT3, LIVER, TSH #### [facility] [address] [place] [address] Dr. Tien Osorio Cholesterol in HDL [Mass/Vol] 60 mg/dL Normal 40-60 [facility] Comment on above: Performed By: #### B MP, LIPID, FT3, LIVER, TSH #### [facility] [address] [place] [address] Dr. Tien Osorio Cholesterol in LDL [Mass/Vol] 77.6 mg/dL Normal [facility] Comment on above: Performed By: #### B MP, LIPID, FT3, LIVER, TSH #### [facility] [address] [place] [address] Dr. Tien Osorio Cholesterol.total/ Cholesterol in HDL [Mass ratio] 2.5 {ratio} Normal [facility] Comment on above: Performed By: #### B MP, LIPID, FT3, LIVER, TSH #### [facility] [address] [place] [address] Dr. Tien Osorio HDL NORMAL > or = 60 mg/dl - LO W CARDIOVASCULAR RISK <40 mg/dl - HIGH CARDIOVASCULAR RISK Normal [facility] Comment on above: Performed By: #### B MP, LIPID, FT3, LIVER, TSH #### [facility] [address] [place] [address] Dr. Tien Osorio LDL CALC NORMAL SEE BELOW Normal [facility] Comment on above: Result Comment: <100 mg/dl OPTIMAL 100 - 129 mg/dl NEAR OR ABOVE OPTIMAL 130 - 159 mg/dl BORDERLINE HIGH 160 - 189 mg/dl HIGH >190 mg/dl VERY HIGH Performed By: #### B MP, LIPID, FT3, LIVER, TSH #### [facility] [address] [place] [address] Dr. Tien Osorio Triglyceride [Mass/Vol] 67 mg/dL Normal <=150 [facility] Comment on above: Performed By: #### B MP, LIPID, FT3, LIVER, TSH #### [facility] [address] [place] [address] Dr. Tien Osorio VLDL CALC 13.4 mg/dL Normal [facility] Comment on above: Performed By: #### B MP, LIPID, FT3, LIVER, TSH #### [facility] [address] [place] [address] Dr. Tien Osorio LIVER PROFILEon 02-16-2022 Albumin [Mass/Vol] 3.8 g/dL Normal 3.4-5.0 [facility] Comment on above: Performed By: #### B MP, LIPID, FT3, LIVER, TSH #### [facility] [address] [place] [address] Dr. Tien Osorio Albumin/Globulin [Mass ratio] 1.2 {ratio} Normal [facility] Comment on above: Performed By: #### B MP, LIPID, FT3, LIVER, TSH #### [facility] [address] [place] [address] Dr. Tien Osorio ALP [Catalytic activity/Vol] 71 U/L Normal 46-116 [facility] Comment on above: Performed By: #### B MP, LIPID, FT3, LIVER, TSH #### [facility] [address] [place] [address] Dr. Tien Osorio ALT [Catalytic activity/Vol] 18 U/L Normal 14-59 [facility] Comment on above: Performed By: #### B MP, LIPID, FT3, LIVER, TSH #### [facility] [address] [place] [address] Dr. Tien Osorio AST [Catalytic activity/Vol] 16 U/L Normal 15-37 [facility] Comment on above: Performed By: #### B MP, LIPID, FT3, LIVER, TSH #### [facility] [address] [place] [address] Dr. Tien Osorio BILI, CONJUGATED 0.1 mg/dL Normal 0.0-0.2 [facility] Comment on above: Performed By: #### B MP, LIPID, FT3, LIVER, TSH #### [facility] [address] [place] [address] Dr. Tien Osorio Bilirubin [Mass/Vol] 0.4 mg/dL Normal 0.2-1.0 [facility] Comment on above: Performed By: #### B MP, LIPID, FT3, LIVER, TSH #### [facility] [address] [place] [address] Dr. Tien Osorio Globulin (S) [Mass/Vol] 3.3 g/dL Normal [facility] Comment on above: Performed By: #### B MP, LIPID, FT3, LIVER, TSH #### [facility] [address] [place] [address] Dr. Tien Osorio Protein [Mass/Vol] 7.1 g/dL Normal 6.4-8.2 [facility] Comment on above: Performed By: #### B MP, LIPID, FT3, LIVER, TSH #### [facility] [address] [place] [address] Dr. Tien Osorio PROF CHEM 8 (BAS METB)on Anion gap [Moles/Vol] 12.1 mmol/L Normal [facility] Comment on above: Performed By: #### B MP, LIPID, FT3, LIVER, TSH #### [facility] [address] [place] [address] Dr. Tien Osorio Calcium [Mass/Vol] 8.4 mg/dL Critically low 8.5-10.1 [facility] Comment on above: Performed By: #### B MP, LIPID, FT3, LIVER, TSH #### [facility] [address] [address] [address] Tien Osorio Chloride [Moles/Vol] 106 mmol/L Normal 98-107 [facility] Comment on above: Performed By: #### B MP, LIPID, FT3, LIVER, TSH #### [facility] [address] [place] [address] Dr. Tien Osorio CO2 [Moles/Vol] 25.7 mmol/L Normal 21.0-32.0 [facility] Comment on above: Performed By: #### B MP, LIPID, FT3, LIVER, TSH #### [facility] [address] [place] [address] Dr. Tien Osorio Creatinine [Mass/Vol] 0.56 mg/dL Normal 0.55-1.02 [facility] Comment on above: Performed By: #### B MP, LIPID, FT3, LIVER, TSH #### [facility] [address] [place] [address] Dr. Tien Osorio EGFR-AF GUATEMALAN >60 Normal >=60 [facility] Comment on above: Performed By: #### B MP, LIPID, FT3, LIVER, TSH #### [facility] [address] [place] [address] Dr. Tien Osorio EGFR-NON AF GUATEMALAN >60 Normal >=60 [facility] Comment on above: Performed By: #### B MP, LIPID, FT3, LIVER, TSH #### [facility] [address] [place] [address] Dr. Tien Osorio Glucose [Mass/Vol] 79 mg/dL Normal 74-106 [facility] Comment on above: Performed By: #### B MP, LIPID, FT3, LIVER, TSH #### [facility] [address] [place] [address] Dr. Tien Osorio Potassium [Moles/Vol] 3.8 mmol/L Normal 3.5-5.1 [facility] Comment on above: Performed By: #### B MP, LIPID, FT3, LIVER, TSH #### [facility] [address] [place] [address] Dr. Tien Osorio Sodium [Moles/Vol] 140 mmol/L Normal 136-145 [facility] Comment on above: Performed By: #### B MP, LIPID, FT3, LIVER, TSH #### [facility] [address] [place] [address] Dr. Tien Osorio Urea nitrogen [Mass/Vol] 9.0 mg/dL Normal 7.0-18.0 [facility] Comment on above: Performed By: #### B MP, LIPID, FT3, LIVER, TSH #### [facility] [address] [place] [address] Dr. Tien Osorio Urea nitrogen/Creatinin e [Mass ratio] 16.1 mg/mg Normal [facility] Comment on above: Performed By: #### B MP, LIPID, FT3, LIVER, TSH #### [facility] [address] [place] [address] Dr. Tien Osorio TSHon 02-16-2022 TSH 1.079 uIU/mL Normal 0.358-3.74 0 [facility] Comment on above: Performed By: #### B MP, LIPID, FT3, LIVER, TSH #### [facility] [address] [place] [address] Dr. Tien Osorio CBC AUTO DIFFon 11-18-2021 BASO # 0.0 103/ul Normal 0.0-0.1 [facility] Comment on above: Performed By: #### B MP #### [facility] [address] [place] [address] Dr. Tien Osorio Basophils/100 WBC (Bld) 0.5 % Normal 0.2-2.0 [facility] Comment on above: Performed By: #### B MP #### [facility] [address] [place] [address] Dr. Tien Osorio EO # 0.1 103/ul Normal 0.0-0.7 [facility] Comment on above: Performed By: #### B MP #### [facility] [address] [place] [address] Dr. Tien Osorio Eosinophils/100 WBC (Bld) 2.4 % Normal 0.9-7.0 [facility] Comment on above: Performed By: #### B MP #### [facility] [address] [place] [address] Dr. Tien Osorio Erythrocyte distribution width (RBC) [Ratio] 14.3 % Normal 11.0-15.0 [facility] Comment on above: Performed By: #### B MP #### [facility] [address] [place] [address] Dr. Tien Osorio Hematocrit (Bld) [Volume fraction] 35.4 % Critically low 36.0-48.0 [facility] Comment on above: Performed By: #### B MP #### [facility] [address] [place] [address] Dr. Tien Osorio Hemoglobin (Bld) [Mass/Vol] 12.0 g/dL Normal 12.0-16.0 [facility] Comment on above: Performed By: #### B MP #### [facility] [address] [place] [address] Dr. Tien Osorio IG # 0.05 10e3/ul Critically high 0.00-0.03 [facility] Comment on above: Performed By: #### B MP #### [facility] [address] [place] [address] Dr. Tien Osorio IG % 1.3 % Critically high 0.0-0.5 [facility] Comment on above: Performed By: #### B MP #### [facility] [address] [place] [address] Dr. Tien Osorio LYMPH # 0.6 103/ul Critically low 1.2-3.8 [facility] Comment on above: Performed By: #### B MP #### [facility] [address] [place] [address] Dr. Tien Osorio Lymphocytes/100 WBC (Bld) 16.8 % Critically low 20.5-60.0 [facility] Comment on above: Performed By: #### B MP #### [facility] [address] [place] [address] Dr. Tien Osorio MANUAL DIFF REQ NO Normal [facility] Comment on above: Performed By: #### B MP #### [facility] [address] [place] [address] Dr. Tien Osorio MCH (RBC) [Entitic mass] 29.9 pg Normal 26.7-34.0 [facility] Comment on above: Performed By: #### B MP #### [facility] [address] [place] [address] Dr. Tien Osorio MCHC (RBC) [Mass/Vol] 33.9 g/dL Normal 29.9-35.2 [facility] Comment on above: Performed By: #### B MP #### [facility] [address] [place] [address] Dr. Tien Osorio MCV (RBC) [Entitic vol] 88.3 fL Normal 81.0-99.0 [facility] Comment on above: Performed By: #### B MP #### [facility] [address] [place] [address] Dr. Tien Osorio MONO # 0.4 103/ul Normal 0.3-0.8 [facility] Comment on above: Performed By: #### B MP #### [facility] [address] [place] [address] Dr. Tien Osorio Monocytes/100 WBC (Bld) 11.7 % Normal 1.7-12.0 [facility] Comment on above: Performed By: #### B MP #### [facility] [address] [place] [address] Dr. Tien Osorio NEUT # 2.5 103/ul Normal 1.4-6.5 [facility] Comment on above: Performed By: #### B MP #### [facility] [address] [place] [address] Dr. Tien Osorio Neutrophils/100 WBC (Bld) 67.3 % Normal 43.0-75.0 [facility] Comment on above: Performed By: #### B MP #### [facility] [address] [address] [address] Tien Osorio Platelet mean volume (Bld) [Entitic vol] 9.4 fL Critically low 9.5-13.5 [facility] Comment on above: Performed By: #### B MP #### [facility] [address] [address] [address] Tien Osorio PLT 216 103/ul Normal 150-450 [facility] Comment on above: Performed By: #### B MP #### [facility] [address] [address] [address] Tien Osorio RBC 4.01 106/ul Critically low 4.20-5.40 [facility] Comment on above: Performed By: #### B MP #### [facility] [address] [place] [address] Dr. Tien Osorio WBC 3.8 103/ul Critically low 4.0-11.0 [facility] Comment on above: Performed By: #### B MP #### [facility] [address] [place] [address] Dr. Tien Osorio PROF CHEM 8 (BAS METB)on Anion gap [Moles/Vol] 10.4 mmol/L Normal [facility] Comment on above: Performed By: #### B MP #### [facility] [address] [place] [address] Dr. Tien Osorio Calcium [Mass/Vol] 8.7 mg/dL Normal 8.5-10.1 [facility] Comment on above: Performed By: #### B MP #### [facility] [address] [place] [address] Dr. Tien Osorio Chloride [Moles/Vol] 105 mmol/L Normal 98-107 [facility] Comment on above: Performed By: #### B MP #### [facility] [address] [place] [address] Dr. Tien Osorio CO2 [Moles/Vol] 25.2 mmol/L Normal 21.0-32.0 [facility] Comment on above: Performed By: #### B MP #### [facility] [address] [address] [address] Tien Osorio Creatinine [Mass/Vol] 0.72 mg/dL Normal 0.55-1.02 [facility] Comment on above: Performed By: #### B MP #### [facility] [address] [place] [address] Dr. Tien Osorio EGFR-AF GUATEMALAN >60 Normal >=60 [facility] Comment on above: Performed By: #### B MP #### [facility] [address] [address] [address] Tien Osorio EGFR-NON AF GUATEMALAN >60 Normal >=60 [facility] Comment on above: Performed By: #### B MP #### [facility] [address] [place] [address] Dr. Tien Osorio Glucose [Mass/Vol] 98 mg/dL Normal 74-106 [facility] Comment on above: Performed By: #### B MP #### [facility] [address] [place] [address] Dr. Tien Osorio Potassium [Moles/Vol] 3.6 mmol/L Normal 3.5-5.1 [facility] Comment on above: Performed By: #### B MP #### [facility] [address] [place] [address] Dr. Tien Osorio Sodium [Moles/Vol] 137 mmol/L Normal 136-145 [facility] Comment on above: Performed By: #### B MP #### [facility] [address] [place] [address] Dr. Tien Osorio Urea nitrogen [Mass/Vol] 7.0 mg/dL Normal 7.0-18.0 [facility] Comment on above: Performed By: #### B MP #### [facility] [address] [place] [address] Dr. Tien Osorio Urea nitrogen/Creatinin e [Mass ratio] 9.7 mg/mg Normal [facility] Comment on above: Performed By: #### B MP #### [facility] [address] [place] [address] Dr. Tien Osorio CBC AUTO DIFFon 11-10-2021 BASO # 0.0 103/ul Normal 0.0-0.1 [facility] Comment on above: Performed By: #### B MP #### [facility] [address] [place] [address] Dr. Tien Osorio Basophils/100 WBC (Bld) 0.6 % Normal 0.2-2.0 [facility] Comment on above: Performed By: #### B MP #### [facility] [address] [place] [address] Dr. Tien Osorio EO # 0.1 103/ul Normal 0.0-0.7 [facility] Comment on above: Performed By: #### B MP #### [facility] [address] [place] [address] Dr. Tien Osorio Eosinophils/100 WBC (Bld) 2.0 % Normal 0.9-7.0 [facility] Comment on above: Performed By: #### B MP #### [facility] [address] [place] [address] Dr. Tien Osorio Erythrocyte distribution width (RBC) [Ratio] 13.7 % Normal 11.0-15.0 [facility] Comment on above: Performed By: #### B MP #### [facility] [address] [place] [address] Dr. Tien Osorio Hematocrit (Bld) [Volume fraction] 38.1 % Normal 36.0-48.0 [facility] Comment on above: Performed By: #### B MP #### [facility] [address] [place] [address] Dr. Tien Osorio Hemoglobin (Bld) [Mass/Vol] 12.6 g/dL Normal 12.0-16.0 [facility] Comment on above: Performed By: #### B MP #### [facility] [address] [place] [address] Dr. Tien Osorio IG # 0.02 10e3/ul Normal 0.00-0.03 [facility] Comment on above: Performed By: #### B MP #### [facility] [address] [place] [address] Dr. Tien Osorio IG % 0.6 % Critically high 0.0-0.5 [facility] Comment on above: Performed By: #### B MP #### [facility] [address] [place] [address] Dr. Tien Osorio LYMPH # 0.6 103/ul Critically low 1.2-3.8 [facility] Comment on above: Performed By: #### B MP #### [facility] [address] [place] [address] Dr. Tien Osorio Lymphocytes/100 WBC (Bld) 16.3 % Critically low 20.5-60.0 [facility] Comment on above: Performed By: #### B MP #### [facility] [address] [place] [address] Dr. Tien Osorio MANUAL DIFF REQ NO Normal [facility] Comment on above: Performed By: #### B MP #### [facility] [address] [place] [address] Dr. Tien Osorio MCH (RBC) [Entitic mass] 29.9 pg Normal 26.7-34.0 [facility] Comment on above: Performed By: #### B MP #### [facility] [address] [place] [address] Dr. Tien Osorio MCHC (RBC) [Mass/Vol] 33.1 g/dL Normal 29.9-35.2 [facility] Comment on above: Performed By: #### B MP #### [facility] [address] [place] [address] Dr. Tien Osorio MCV (RBC) [Entitic vol] 90.3 fL Normal 81.0-99.0 [facility] Comment on above: Performed By: #### B MP #### [facility] [address] [place] [address] Dr. Tien Osorio MONO # 0.4 103/ul Normal 0.3-0.8 [facility] Comment on above: Performed By: #### B MP #### [facility] [address] [place] [address] Dr. Tien Osorio Monocytes/100 WBC (Bld) 10.0 % Normal 1.7-12.0 [facility] Comment on above: Performed By: #### B MP #### [facility] [address] [place] [address] Dr. Tien Osorio NEUT # 2.5 103/ul Normal 1.4-6.5 [facility] Comment on above: Performed By: #### B MP #### [facility] [address] [place] [address] Dr. Tien Osorio Neutrophils/100 WBC (Bld) 70.5 % Normal 43.0-75.0 [facility] Comment on above: Performed By: #### B MP #### [facility] [address] [place] [address] Dr. Tien Osorio Platelet mean volume (Bld) [Entitic vol] 9.6 fL Normal 9.5-13.5 [facility] Comment on above: Performed By: #### B MP #### [facility] [address] [place] [address] Dr. Tien Osorio PLT 180 103/ul Normal 150-450 [facility] Comment on above: Performed By: #### B MP #### [facility] [address] [place] [address] Dr. Tien Osorio RBC 4.22 106/ul Normal 4.20-5.40 [facility] Comment on above: Performed By: #### B MP #### [facility] [address] [place] [address] Dr. Tien Osorio WBC 3.5 103/ul Critically low 4.0-11.0 [facility] Comment on above: Performed By: #### B MP #### [facility] [address] [place] [address] Dr. Tien Osorio CRPon 11-10-2021 CRP 5.9 mg/dL Critically high <=1.0 [facility] Comment on above: Performed By: #### B MP, LIPID, FT3, LIVER, TSH #### [facility] [address] [place] [address] HEAD WO CONon [...] ALICEA Date: 2021-11-10 14:04 Normal [facility] Covid-19 PCR (CVDTBH)on 10-20 SARS-CoV-2 (COVID-19) RNA BECKY+probe Ql (Unsp spec) Not detected Normal NOT DETECTED [facility] Comment on above: Result Comment: This test is not yet approved or cleared by the [place] FDA. When there are no FDA-approved or cleared tests available, and other criteria are met, FDA can make tests available under an emergency access mechanism called an Emergency Use Authorization (EUA). The EUA for this test is supported by the Granulator Operator of Health and Human Service's (HHS's) declaration [...] MP, LIPID, FT3, LIVER, TSH #### [facility] [address] [place] [address] Dr. Tien Osorio INFLUENZA A AND B AGon 11-10 INFLUENZA A AG Negative Normal NEGATIVE SEE COMMENT [facility] Comment on above: Performed By: #### I NFLUAB #### [facility] [address] [place] [address] Dr. Tien Osorio INFLUENZA B AG Negative Normal NEGATIVE SEE COMMENT [facility] Comment on above: Performed By: #### I NFLUAB #### [facility] [address] [place] [address] Dr. Tien Osorio INTERNAL CONTROLS Within Normal Limits Normal Wi thin Normal Limits [facility] Comment on above: Performed By: #### I NFLUAB #### [facility] [address] [place] [address] Dr. Tien Osorio PROF 14(COMP METB)on 022 Albumin [Mass/Vol] 3.6 g/dL Normal 3.4-5.0 [facility] Comment on above: Performed By: #### B MP #### [facility] [address] [place] [address] Dr. Tien Osorio Albumin/Globulin [Mass ratio] 0.9 {ratio} Normal [facility] Comment on above: Performed By: #### B MP #### [facility] [address] [place] [address] Dr. Tien Osorio ALP [Catalytic activity/Vol] 230 U/L Critically high 46-116 [facility] Comment on above: Performed By: #### B MP #### [facility] [address] [place] [address] Dr. Tien Osorio ALT [Catalytic activity/Vol] 53 U/L Normal 14-59 [facility] Comment on above: Performed By: #### B MP #### [facility] [address] [place] [address] Dr. Tien Osorio Anion gap [Moles/Vol] 11.6 mmol/L Normal [facility] Comment on above: Performed By: #### B MP #### [facility] [address] [place] [address] Dr. Tien Osorio AST [Catalytic activity/Vol] 33 U/L Normal 15-37 [facility] Comment on above: Performed By: #### B MP #### [facility] [address] [address] [address] Tien Osorio Bilirubin [Mass/Vol] 0.4 mg/dL Normal 0.2-1.0 [facility] Comment on above: Performed By: #### B MP #### [facility] [address] [address] [address] Tien Osorio Calcium [Mass/Vol] 8.4 mg/dL Critically low 8.5-10.1 [facility] Comment on above: Performed By: #### B MP #### [facility] [address] [address] [address] Tien Osorio Chloride [Moles/Vol] 104 mmol/L Normal 98-107 [facility] Comment on above: Performed By: #### B MP #### [facility] [address] [address] [address] Tien Osorio CO2 [Moles/Vol] 24.0 mmol/L Normal 21.0-32.0 [facility] Comment on above: Performed By: #### B MP #### [facility] [address] [address] [address] Tien Osorio Creatinine [Mass/Vol] 0.69 mg/dL Normal 0.55-1.02 [facility] Comment on above: Performed By: #### B MP #### [facility] [address] [address] [address] Tien Osorio EGFR-AF GUATEMALAN >60 Normal >=60 [facility] Comment on above: Performed By: #### B MP #### [facility] [address] [address] [address] Tien Osorio EGFR-NON AF GUATEMALAN >60 Normal >=60 [facility] Comment on above: Performed By: #### B MP #### [facility] [address] [address] [address] Tien Osorio Globulin (S) [Mass/Vol] 3.8 g/dL Normal [facility] Comment on above: Performed By: #### B MP #### [facility] [address] [address] [address] Tien Osorio Glucose [Mass/Vol] 139 mg/dL Critically high 74-106 [facility] Comment on above: Performed By: #### B MP #### [facility] [address] [address] [address] Tien Osorio Potassium [Moles/Vol] 3.6 mmol/L Normal 3.5-5.1 [facility] Comment on above: Performed By: #### B MP #### [facility] [address] [address] [address] Tien Osorio Protein [Mass/Vol] 7.4 g/dL Normal 6.4-8.2 [facility] Comment on above: Performed By: #### B MP #### [facility] [address] [address] [address] Tien Osorio Sodium [Moles/Vol] 136 mmol/L Normal 136-145 [facility] Comment on above: Performed By: #### B MP #### [facility] [address] [address] [address] Tien Osorio Urea nitrogen [Mass/Vol] 9.0 mg/dL Normal 7.0-18.0 [facility] Comment on above: Performed By: #### B MP #### [facility] [address] [address] [address] Tien Osorio Urea nitrogen/Creatinin e [Mass ratio] 13.0 mg/mg Normal [facility] Comment on above: Performed By: #### B MP #### [facility] [address] [address] [address] Tien Osorio SED RATE WESTERGRENon 2021 SED RATE 43 mm/hr Critically high <=20 [facility] Comment on above: Performed By: #### B MP #### [facility] [address] [address] [address] Tien Osorio TSHon 11-10-2021 TSH 2.715 uIU/mL Normal 0.358-3.74 0 [facility] Comment on above: Performed By: #### B MP, LIPID, FT3, LIVER, TSH #### [facility] [address] [place] [address] Dr. Tien Osorio TSH RANGE SEE BELOW Normal [facility] Comment on above: Result Comment: <0.3 4 UIU/ml HYPERTHYROID 0.34-5.60 UIU/ml EUTHYROID >5.60 UIU/ml HYPOTHYROID Performed By: #### B MP, LIPID, FT3, LIVER, TSH #### [facility] [address] [place] [address] Dr. Tien Osorio CBC W MANUAL DIFFon 10-24-19 22 ATYPICAL LYMPH # Normal [facility] Comment on above: Performed By: #### B MP #### [facility] [address] [place] [address] Dr. Tien Osorio ATYPICAL LYMPH % Normal [facility] Comment on above: Performed By: #### B MP #### [facility] [address] [place] [address] Dr. Tien Osorio BAND # 0.1 103/ul Normal 0.0-0.3 [facility] Comment on above: Performed By: #### B MP #### [facility] [address] [place] [address] Dr. Tien Osorio BAND % 2 % Normal 0-5 [facility] Comment on above: Performed By: #### B MP #### [facility] [address] [place] [address] Dr. Tien Osorio BASOM # 0.00 103/ul Normal 0.00-0.10 [facility] Comment on above: Performed By: #### B MP #### [facility] [address] [place] [address] Dr. Tien Osorio BASOM % 0.0 % Critically low 0.2-2.0 [facility] Comment on above: Performed By: #### B MP #### [facility] [address] [place] [address] Dr. Tien Osorio BLAST # Normal [facility] Comment on above: Performed By: #### B MP #### [facility] [address] [place] [address] Dr. Tien Osorio BLAST % Normal [facility] Comment on above: Performed By: #### B MP #### [facility] [address] [place] [address] Dr. Tien Osorio CORRECTED WBC Normal 4.0-11.0 [facility] Comment on above: Performed By: #### B MP #### [facility] [address] [place] [address] Dr. Tien Osorio EOS # 0.04 103/ul Normal 0.00-0.70 [facility] Comment on above: Performed By: #### B MP #### [facility] [address] [place] [address] Dr. Tien Osorio EOS% 1.0 % Normal 0.9-7.0 [facility] Comment on above: Performed By: #### B MP #### [facility] [address] [place] [address] Dr. Tine Osorio HCT 36.4 % Normal 36.0-48.0 [facility] Comment on above: Performed By: #### B MP #### [facility] [address] [place] [address] Dr. Tien Osorio HGB 12.2 g/dl Normal 12.0-16.0 [facility] Comment on above: Performed By: #### B MP #### [facility] [address] [place] [address] Dr. Tien Osorio LYMPHM # 0.49 103/ul Critically low 1.20-3.80 [facility] Comment on above: Performed By: #### B MP #### [facility] [address] [place] [address] Dr. Tien Osorio LYMPHM% 12.0 % Critically low 20.5-60.0 [facility] Comment on above: Performed By: #### B MP #### [facility] [address] [place] [address] Dr. Tien Osorio MCH 30.3 pg Normal 26.7-34.0 [facility] Comment on above: Performed By: #### B MP #### [facility] [address] [place] [address] Dr. Tien Osorio MCHC 33.5 g/dl Normal 29.9-35.2 [facility] Comment on above: Performed By: #### B MP #### [facility] [address] [place] [address] Dr. Tien Osorio MCV 90.3 fL Normal 81.0-99.0 [facility] Comment on above: Performed By: #### B MP #### [facility] [address] [place] [address] Dr. Tien Osorio METAMYELOCYTE # Normal [facility] Comment on above: Performed By: #### B MP #### [facility] [address] [place] [address] Dr. Tien Osorio METAMYELOCYTE % Normal [facility] Comment on above: Performed By: #### B MP #### [facility] [address] [place] [address] Dr. Tien Osorio MONOM# 0.37 103/ul Normal 0.30-0.80 [facility] Comment on above: Performed By: #### B MP #### [facility] [address] [place] [address] Dr. Tien Osorio MONOM% 9.0 % Normal 1.7-12.0 [facility] Comment on above: Performed By: #### B MP #### [facility] [address] [place] [address] Dr. Tien Osorio MPV 9.8 fL Normal 9.5-13.5 [facility] Comment on above: Performed By: #### B MP #### [facility] [address] [place] [address] Dr. Tien Osorio MYELOCYTE # Normal [facility] Comment on above: Performed By: #### B MP #### [facility] [address] [place] [address] Dr. Tien Osorio MYELOCYTE % Normal [facility] Comment on above: Performed By: #### B MP #### [facility] [address] [place] [address] Dr. Tien Osorio NRBC Normal [facility] Comment on above: Performed By: #### B MP #### [facility] [address] [address] [address] Tien Osorio PLT 190 103/ul Normal 150-450 [facility] Comment on above: Performed By: #### B MP #### [facility] [address] [address] [address] Tien Osorio RBC 4.03 106/ul Critically low 4.20-5.40 [facility] Comment on above: Performed By: #### B MP #### [facility] [address] [place] [address] Dr. Tien Osorio RDW 13.9 % Normal 11.0-15.0 [facility] Comment on above: Performed By: #### B MP #### [facility] [address] [place] [address] Dr. Tien Osorio SEG # 3.12 103/ul Normal 1.40-6.50 [facility] Comment on above: Performed By: #### B MP #### [facility] [address] [place] [address] Dr. Tien Osorio SEG % 76.0 % Critically high 43.0-75.0 [facility] Comment on above: Performed By: #### B MP #### [facility] [address] [place] [address] Dr. Tien Osorio WBC 4.1 103/ul Normal 4.0-11.0 [facility] Comment on above: Performed By: #### B MP #### [facility] [address] [place] [address] Dr. Tien Osorio CRPon 10-23-2021 CRP 2.7 mg/dL Critically high <=1.0 [facility] Comment on above: Performed By: #### B MP #### [facility] [address] [place] [address] Dr. Tien Osorio PROF CHEM 8 (BAS METB)on Anion gap [Moles/Vol] 4.8 mmol/L Normal [facility] Comment on above: Performed By: #### B MP #### [facility] [address] [address] [address] Tien Osorio Calcium [Mass/Vol] 7.9 mg/dL Critically low 8.5-10.1 Th [facility] Comment on above: Performed By: #### B MP #### [facility] [address] [address] [address] Tien Osorio Chloride [Moles/Vol] 103 mmol/L Normal 98-107 [facility] Comment on above: Performed By: #### B MP #### [facility] [address] [address] [address] Tien Osorio CO2 [Moles/Vol] 28.6 mmol/L Normal 21.0-32.0 [facility] Comment on above: Performed By: #### B MP #### [facility] [address] [place] [address] Dr. Tien Osorio Creatinine [Mass/Vol] 0.77 mg/dL Normal 0.55-1.02 [facility] Comment on above: Performed By: #### B MP #### [facility] [address] [place] [address] Dr. Tien Osorio EGFR-AF GUATEMALAN >60 Normal >=60 [facility] Comment on above: Performed By: #### B MP #### [facility] [address] [place] [address] Dr. Tien Osorio EGFR-NON AF GUATEMALAN >60 Normal >=60 [facility] Comment on above: Performed By: #### B MP #### [facility] [address] [address] [address] Tien Osorio Glucose [Mass/Vol] 106 mg/dL Normal 74-106 [facility] Comment on above: Performed By: #### B MP #### [facility] [address] [place] [address] Dr. Tien Osorio Potassium [Moles/Vol] 3.4 mmol/L Critically low 3.5-5.1 [facility] Comment on above: Performed By: #### B MP #### [facility] [address] [place] [address] Dr. Tien Osorio Sodium [Moles/Vol] 133 mmol/L Critically low 136-145 Th e [facility] Comment on above: Performed By: #### B MP #### [facility] [address] [place] [address] Dr. Tien Osorio Urea nitrogen [Mass/Vol] 8.0 mg/dL Normal 7.0-18.0 [facility] Comment on above: Performed By: #### B MP #### [facility] [address] [place] [address] Dr. Tien Osorio Urea nitrogen/Creatinin e [Mass ratio] 10.4 mg/mg Normal [facility] Comment on above: Performed By: #### B MP #### [facility] [address] [place] [address] Dr. Tien Osorio SED RATE WESTERGRENon 2021 SED RATE 18 mm/hr Normal <=20 [facility] Comment on above: Performed By: #### B MP #### [facility] [address] [place] [address] Dr. Tien Osorio CBC AUTO DIFFon 10-20-2021 BASO # 0.0 103/ul Normal 0.0-0.1 [facility] Comment on above: Performed By: #### B MP #### [facility] [address] [place] [address] Dr. Tien Osorio Basophils/100 WBC (Bld) 0.3 % Normal 0.2-2.0 [facility] Comment on above: Performed By: #### B MP #### [facility] [address] [place] [address] Dr. Tien Osorio EO # 0.0 103/ul Normal 0.0-0.7 [facility] Comment on above: Performed By: #### B MP #### [facility] [address] [place] [address] Dr. Tien Osorio Eosinophils/100 WBC (Bld) 1.3 % Normal 0.9-7.0 [facility] Comment on above: Performed By: #### B MP #### [facility] [address] [place] [address] Dr. Tien Osorio Erythrocyte distribution width (RBC) [Ratio] 14.0 % Normal 11.0-15.0 [facility] Comment on above: Performed By: #### B MP #### [facility] [address] [place] [address] Dr. Tien Osorio Hematocrit (Bld) [Volume fraction] 34.3 % Critically low 36.0-48.0 [facility] Comment on above: Performed By: #### B MP #### [facility] [address] [place] [address] Dr. Tien Osorio Hemoglobin (Bld) [Mass/Vol] 11.6 g/dL Critically low 12.0-16.0 [facility] Comment on above: Performed By: #### B MP #### [facility] [address] [place] [address] Dr. Tien Osorio IG # 0.03 10e3/ul Normal 0.00-0.03 [facility] Comment on above: Performed By: #### B MP #### [facility] [address] [place] [address] Dr. Tien Osorio IG % 0.9 % Critically high 0.0-0.5 [facility] Comment on above: Performed By: #### B MP #### [facility] [address] [place] [address] Dr. Tien Osorio LYMPH # 0.4 103/ul Critically low 1.2-3.8 [facility] Comment on above: Performed By: #### B MP #### [facility] [address] [place] [address] Dr. Tien Osorio Lymphocytes/100 WBC (Bld) 12.3 % Critically low 20.5-60.0 [facility] Comment on above: Performed By: #### B MP #### [facility] [address] [place] [address] Dr. Tien Osorio MANUAL DIFF REQ NO Normal [facility] Comment on above: Performed By: #### B MP #### [facility] [address] [place] [address] Dr. Tien Osorio MCH (RBC) [Entitic mass] 30.4 pg Normal 26.7-34.0 [facility] Comment on above: Performed By: #### B MP #### [facility] [address] [place] [address] Dr. Tien Oosrio MCHC (RBC) [Mass/Vol] 33.8 g/dL Normal 29.9-35.2 [facility] Comment on above: Performed By: #### B MP #### [facility] [address] [place] [address] Dr. Tien Osorio MCV (RBC) [Entitic vol] 90.0 fL Normal 81.0-99.0 [facility] Comment on above: Performed By: #### B MP #### [facility] [address] [place] [address] Dr. Tien Osorio MONO # 0.3 103/ul Normal 0.3-0.8 [facility] Comment on above: Performed By: #### B MP #### [facility] [address] [place] [address] Dr. Tien Osorio Monocytes/100 WBC (Bld) 10.7 % Normal 1.7-12.0 [facility] Comment on above: Performed By: #### B MP #### [facility] [address] [place] [address] Dr. Tien Osorio NEUT # 2.4 103/ul Normal 1.4-6.5 [facility] Comment on above: Performed By: #### B MP #### [facility] [address] [place] [address] Dr. Tien Osorio Neutrophils/100 WBC (Bld) 74.5 % Normal 43.0-75.0 [facility] Comment on above: Performed By: #### B MP #### [facility] [address] [place] [address] Dr. Tien Osorio Platelet mean volume (Bld) [Entitic vol] 10.0 fL Normal 9.5-13.5 [facility] Comment on above: Performed By: #### B MP #### [facility] [address] [place] [address] Dr. Tien Osorio PLT 158 103/ul Normal 150-450 [facility] Comment on above: Performed By: #### B MP #### [facility] [address] [address] [address] Tien Osorio RBC 3.81 106/ul Critically low 4.20-5.40 [facility] Comment on above: Performed By: #### B MP #### [facility] [id number] Tien Osorio WBC 3.2 103/ul Critically low 4.0-11.0 [facility] Comment on above: Performed By: #### B MP #### [facility] [id number] Tien Osorio [address] HEAD WO CONon [...] ALICEA Date: 2021-10-20 13:46 Normal [facility] PROF CHEM 8 (BAS METB)on Anion gap [Moles/Vol] 11.9 mmol/L Normal [facility] Comment on above: Performed By: #### B MP #### [facility] [id number] Tien Osorio Calcium [Mass/Vol] 8.3 mg/dL Critically low 8.5-10.1 Th e [facility] Comment on above: Performed By: #### B MP #### [facility] [id number] Tien Osorio Chloride [Moles/Vol] 104 mmol/L Normal 98-107 [facility] Comment on above: Performed By: #### B MP #### [facility] [address] [address] [address] Tien Osorio CO2 [Moles/Vol] 26.2 mmol/L Normal 21.0-32.0 [facility] Comment on above: Performed By: #### B MP #### [facility] [address] [address] [address] Tien Osorio Creatinine [Mass/Vol] 0.61 mg/dL Normal 0.55-1.02 [facility] Comment on above: Performed By: #### B MP #### [facility] [address] [address] [address] Tien Osorio EGFR-AF GUATEMALAN >60 Normal >=60 [facility] Comment on above: Performed By: #### B MP #### [facility] [address] [place] [address] Dr. Tien Osorio EGFR-NON AF GUATEMALAN >60 Normal >=60 [facility] Comment on above: Performed By: #### B MP #### [facility] [address] [address] [address] Tien Osorio Glucose [Mass/Vol] 115 mg/dL Critically high 74-106 [facility] Comment on above: Performed By: #### B MP #### [facility] [address] [place] [address] Dr. Tien Osorio Potassium [Moles/Vol] 4.1 mmol/L Normal 3.5-5.1 [facility] Comment on above: Performed By: #### B MP #### [facility] [address] [address] [address] Tien Osorio Sodium [Moles/Vol] 138 mmol/L Normal 136-145 [facility] Comment on above: Performed By: #### B MP #### [facility] [address] [address] [address] Tien Osorio Urea nitrogen [Mass/Vol] 7.0 mg/dL Normal 7.0-18.0 [facility] Comment on above: Performed By: #### B MP #### [facility] [address] [place], [place] [address] Dr. Tien Osorio Urea nitrogen/Creatinin e [Mass ratio] 11.5 mg/mg Normal [facility] Comment on above: Performed By: #### B MP #### [facility] [address] [place], [place] [address] Dr. [facility]sor[facility] 19 mm/hr Normal <=20 [facility] Comment on above: Performed By: #### B MP #### [facility] [address] [place], [place] [address] Dr. Tien Osorio Cardiovascular Lab Reporton 04-30-2018 Cardiovascular Lab Report [facility] Patient Name: [facility] Carito Jalloh MR #: [id number] of Physician: Rogelio Whitlock M.D.Division of Service Date: 04/29/2018Cardiology Birthdate: 1980Adult Cardiovascular [facility] [place], [place] [address]Tjaph Fax Cardiovascular Laboratory ReportINDICATION: The patient is [...] signed informed consent. She was brought to sleep lab technologist in a fastingstate. The right neck area was prepped and draped in usual fashion. Usingultrasound guidance and micropuncture technique, the right internal jugularvein was accessed. A 6-New Zealander x 11 cm sheath was placed. A [...] day.2. She will be hydrated in the sleep lab technologist holding area before discharge.3. Follow up in Cardiology Clinic with Dr. Kade Sofia.Electronically Signed by:Rogelio Whitlock M.D. 05/02/2018 07:18 P Rogelio Whitlock M.D.Date Dict: 04/29/2018/02:44 P/Rogelio Whitlock M.D.Date Trans: 04/30/2018 04:20 A/Nader_JN:[id number]: Kade Sofia M.D. [address] [facility] [address] Rock Dunbar M.D. [address] [place] [address] Normal [facility] BASIC METABOLIC PANELon 11-0 Calcium mass conc 8.9 mg/dL Normal 8.6-10.3 [facility] Comment on above: Performed By: #### 0 0071 ####[facility] [facility] [place] [address], [facility] Chloride molar conc 105 mmol/L Normal 98-107 [facility] Comment on above: Performed By: #### 0 0071 ####[facility] [facility] [place] [address], [facility] CO2 molar conc 28 mmol/L Normal 21-31 [facility] Comment on above: Performed By: #### 0 0071 ####[facility] [place] [address], [facility] Creatinine mass conc 0.71 mg/dL Normal 0.60-1.20 [facility] Comment on above: Performed By: #### 0 0071 ####[facility] [place] [address], [facility] GFR/1.73 sq M predicted among blacks MDRD vol rate/area (S/P/Bld) mL/min/{1.73_m2} Normal >60 [facility] Comment on above: Performed By: #### 0 0071 ####[facility] [place] [address], [facility] GFR/1.73 sq M predicted among non-blacks MDRD vol rate/area (S/P/Bld) mL/min/{1.73_m2} Normal >60 [facility] Comment on above: Performed By: #### 0 0071 ####[facility] [place] [address], [facility] Glucose mass conc 91 mg/dL Normal 70-100 [facility] Comment on above: Performed By: #### 0 0071 ####[facility] [place] [address], [facility] Potassium molar conc 4.2 mmol/L Normal 3.5-5.1 [facility] Comment on above: Performed By: #### 0 0071 ####[facility] [place] [address], [facility] Sodium molar conc 138 mmol/L Normal 136-145 [facility] Comment on above: Performed By: #### 0 0071 ####[facility] [place] [address], [facility] Urea nitrogen mass conc 4 mg/dL Low 7-25 [facility] Comment on above: Performed By: #### 0 0071 ####[facility] [facility].[address] CBC COMPLETE BLOOD COUNTon 1 06-29-2017 Erythrocyte distribution width Auto Ratio (RBC) 13.1 % Normal 11.5-15.0 [facility] Comment on above: Performed By: #### 5 0608 ####[facility] [facility].[address] Hematocrit Auto Volume Fraction (Bld) 38.5 % Normal 36.0-45.0 [facility] Comment on above: Performed By: #### 5 [address] ####[place] [id number] [address] Hemoglobin mass conc (Bld) 13.6 g/dL Normal 12.0-15.0 [facility] Comment on above: Performed By: #### 5 0608 ####[facility] MCH Auto Entitic mass (RBC) 30.0 pg Normal 27.0-33.0 [facility] Comment on above: Performed By: #### 5 0608 ####[facility] MCHC Auto mass conc (RBC) 35.3 g/dL High 32.0-35.0 [facility] Comment on above: Performed By: #### 5 0608 ####[facility] [facility].[address] MCV Auto Entitic volume (RBC) 84.8 fL Normal 82.0-98.0 [facility] Comment on above: Performed By: #### 5 0608 ####[facility] [facility].[address] Nucleated RBC/100 WBC Ratio (Bld) 0 % Normal 0-0 [facility] Comment on above: Performed By: #### 5 0608 ####[address] PLAT CNT 183 10*3/uL Normal 150-400 [facility] Comment on above: Performed By: #### 5 0608 ####[address] RBC Auto #/vol (Bld) 4.54 10*6/uL Normal 3.80-5.00 [facility] Comment on above: Performed By: #### 5 [address]608 ####[address] WBC Auto #/vol (Bld) 5.28 10*3/uL Normal 4.00-10.60 [facility] Comment on above: Performed By: #### 5 [address]608 ####[address] Cardiovascular Lab Reporton 04-01-2018 Cardiovascular Lab Report [facility] Patient Name: [facility] Carito Jalloh MR #: [id number] of Physician: Kade Sofia M.D.Division of Service Date: 03/31/2018Cardiology Birthdate: 1980Adult Cardiovascular Room #: [address] [place] [address]Phone Fax Cardiovascular Laboratory ReportINDICATION: The patient is a long-term patient of mine from [place]. Shehas a history of a severe nonischemic cardiomyopathy that improvedsubstantially with TEACHERS' ASSISTANT defibrillator. She has a [employer] device [...] removed device was a [employer] Unify [id number]. It was implanted on 02/22/2013. Next, the [...] zone with 200 beats per minute. Next, TEACHERS' ASSISTANT pacing wasreinstituted.ASSESSMENT:1. Conscious sedation.2. Removal of existing TEACHERS' ASSISTANT generator. The SVC plug is port capped as prior.3. Placement of a new TEACHERS' ASSISTANT-D generator. There were no apparent complications. There was no contrast utilized. There was no fluoroscopy utilized. Blood loss was minimal.Electronically Signed by:Kade Sofia M.D. 04/01/2018 08:32 A aKde Sofia M.D.Date Dict: 03/31/2018/01:48 P/Kade Sofia M.D.Date Trans: 04/01/2018 06:34 A/mmEliseN_JN:[id number]: Rock Dunbar M.D. [address] [facility] [address] Normal [facility] Coding Summary.on 02-09-2018 Coding Summary. CODING DATE: [facility] STATUS: Home (Routine DC) PAYOR: Medicaid [...] Steen Date Saved: 02/09/2018 11:43 am Normal [facility] Coding Summary. CODING DATE: 08/22/2 018 FINAL [facility] STATUS: Home (Routine DC) PAYOR: Medicaid EAPG [...] defibrillator Z98.84 Bariatric surgery status PYMT PROC EA STAT DESCRIPTION DOCTOR NAME DATE NOTE: The code number assigned matches the documented diagnosis and / or procedure in the patient's chart. However, the narrative phrase printed from the coding software may appear abbreviated, or result in slightly different terminology. Coded By: Meryl Steen Date Saved: 02/09/2018 11:42 am Normal [facility] Discharge Summaryon 02-09-20 Discharge Summary Admission Informatio [...] Daily, # 30 tab(s), Refills(s) 0, Pharmacy: [facility][id number] aspirin, 81 mg = 1 tab(s), Tab-EC, [...] Information Amador Lexx 02/24/2018 01:30 PM EDT [address] [place] [phone]- Business (1) Additional Instructions: ROCK DUNBAR 02/16/2018 09:45 AM EDT [address] [place] [phone]- Business (1) Additional Instructions: Patient Education Core Measures: Stroke (Cerebrovascular Accident) [facility] (Custom) [facility] Comment on above: Result Comment: Elec tronically Signed By: Alona LEIJA, Makayla\.br\Date and Time Signed: 02/08/18 10:03 EDT Inpatient Clinical Summaryon 02-08-2018 Inpatient Clinical Summary [address] [place] [address] Clinical Summary Person Information:Name: CARITO RIOS Age: 37 Years : 1980 12:00 AM Sex: Female PCP: ROCK DUNBAR MD Marital Status: Race:White Ethnicity:Non- or Language:Bahamian Visit Id: Visit Reason:Headache; HISTORY BELLS PALSY AND STROKE LIKE SYMPTOMS Speciality: Acuity: 3 Enc Type: Observation Med Service: Medical Arrival:02/06/2018 9:55 PM Discharge: Dispo Type: Admitted as IP to this Hosp Address:[address] [place] [address] [facility] [id number] Provider Notes: Diagnosis:1:Complicated migraine; 2:Tobacco abuse disorder; [...] MD NConsulting Physician: Jin Herrera DO, MD, [facility] Physician: Follow up:With: Address: When: [place] [address] Business (1) 02/16/18 09:45:00 Comments: With: Address: When: Amador [address] [facility] [address] [place] [phone] Business (1) 02/24/18 13:30:00 Patient Education Information: Migraine Headache, Hdxr-ah-Vcja Normal [facility] Inpatient Patient Summaryon 02-08-2018 Inpatient Patient Summary [address] [address] Patient Discharge Instructions PERSON INFORMATION Name: CARITO RIOS Date of : 1980 12:00 AM Current Date: 02/08/18 11:05:41 PHYSICIANS Admitting Physician: Carlos Alberto LEIJA, Eliel [facility] Care Physician: HOWARD DUNBAR MD Comment: Discharge [...] test results: NoneFollow up:With: Address: When: [place] [address] Business (1) 02/16/18 09:45:00 Comments: With: Address: When: Amador [place] [address] [place] [phone] Business (1) 02/24/18 13:30:00 In the event that this physician does not participate in your insurance network, please consult with your insurance company to find a nearby participating provider. Comment: TOVA Dinh MACKENZIE L, have received the attached patient education materials/instructions and have verbalized understanding:Patient Signature Date Clinican/Nurse Signature Date HERE ARE THE MEDICATION CHANGES THAT OCCURRED DURING YOUR HOSPITAL STAY New [facility]ations[id number], [address] [place] [address], [phone] (aspirin 81 mg Oral EC Tab) 1 [...] By Mouth 2 times a day.Pharmacy Information: FAMILIA Mendosa comment: PATIENT EDUCATION INFORMATIONInstructions:Migrain e HeadacheA migraine [...] 08/29/2012 Document Reviewed: 02/12/2014ExitCare? Patient Information ?2014 [employer]. This information is not intended to replace advice given to you by your health care provider. Make sure you discuss any questions you have with your health care provider. Medication Leaflets: Thank you for choosing [facility] Normal [facility] Interdisciplinary Note - Gustavo e Manageron 02-08-2018 Thyrotropin Qn Rounding with Dr. Zavala ir, Perez (pharm), Lisa RN, Yane [place], white board updated, reviewed hospital status with patient, she denies any needs and has no concerns, Dr. Sage reviewed plan of care; patient voices understanding. No needs identified, her boyfriend will come and pick her up upon discharge. Normal [facility] Interdisciplinary Note - PTo n 02-08-2018 Interdisciplinary Note - PT P.T. Evaluation done this date. Pt. with on AM-PAC this date. Safe and independent with all functional activities. No further P.T. needs. Normal [facility] Lipid Panelon 02-08-2018 Cholesterol in HDL mass conc 58 mg/dL Invalid Interpretation Code [facility] Comment on above: Result Comment: HDL > or equal to 60 mg/dL: Low cardiovascular riskHDL < 40 mg/dL : High cardiovascular risk Performed By: #### 2 355110, [id number], [id number], 8067062, 8907216, 20004041, 3180312, 1780876, 43063074, [id number] ####[facility] [address] [place] [address] Cholesterol in LDL mass conc 77 mg/dL Normal <=129 [facility] Comment on above: Performed By: #### 2 373205, 3656431, [id number], 6453277, 1002853, 60963965, 2229273, 3867779, 29501339, [id number] ####[facility] [address] [place] [address] Cholesterol in VLDL mass conc 15 mg/dL Normal 7-40 [facility] Comment on above: Performed By: #### 2 482428, 2768088, 29993710, 0765096, 5671412, 57176275, 5378826, 0965855, 35064018, [id number] ####[facility] [address] [place] [address] Cholesterol mass conc 145 mg/dL Normal 120-200 [facility] Comment on above: Performed By: #### 2 565604, 1120620, 78988457, 0570156, 2186604, 54920022, 1260096, 4480577, 28259759, [id number] ####[facility] [address] [place] [address] Triglyceride mass conc 73 mg/dL Normal <=149 [facility] Comment on above: Performed By: #### 2 878201, 3451730, 64307811, 2845586, 9501245, 67022343, 5495301, 2678888, 52594448, 15540460 ####[facility] [address] [place] [address] Progress Note-Physicianon Protein mass conc Assessment/Plan The [...] an MRI scan of the brain at [facility] due to radiology policy -I recommend [...] left upper and lower extremity Cerebellar exam: Yvjcpr-dn-arqu reveals Some dysmetria in the left finger to nose. Gait is normal The neurological exam was performed by a healthcare professional which was witnessed and supervised by me via video telemedicine visit consented to by the patient or appropriate patient outbound sales representative. [3] Lab Results Chol: 145 mg/dL [...] Line FINAL REPORT Dictated: 02/07/2018 1:59 pm Kimmy LEIJA, Ric Villanueva [4] (02/07/2018 13:47 EDT CTA Head) * [...] 02/07/2018 13:47 EDT[6] Echo w/ Saline Bubbles; Marahmarcin VILLEGAS, Jolly 02/07/2018 11:26 EDT Normal [facility] Comment on above: Result Comment: Elec tronically Signed By: Claudia Lu RN\.br\Date and Time Signed: 02/08/18 07:42 EDT\.br\Electronically Co-Signed By: Amador Hallman MD\.br\Date and Time Co-Signed: 02/08/18 08:52 EDT Auto Diffon 02-07-2018 Basophils Auto #/vol (Bld) 0.8 % Normal 0.0-2.0 [facility] Comment on above: Order Comment: Order added by Discern Expert. Performed By: #### 2 922228, 0916455, 84577852, 1816367, 2763612, 82411017, 8207714, 5640676, 71702141, 39272868 ####[facility] [address] [place] [address] Basophils/Leukocyt es Auto Pure number fraction (Bld) 0.0 E9/L Normal 0.0-0.2 [facility] Comment on above: Order Comment: Order added by Discern Expert. Performed By: #### 2 308754, 5253444, 94586696, 4644696, 8682226, 81878230, 4739746, 0794449, 89347774, 76421765 ####[address] [place] [address] Eosinophils/100 WBC Auto (Bld) 1.8 % Normal 0.0-8.0 [facility] Comment on above: Order Comment: Order added by Discern Expert. Performed By: #### 2 667590, 6719542, 37468434, 8592157, 1902966, 53787217, 7793723, 2199913, 12477280, 31674221 ####[address] [address] Eosinophils/Leukoc ytes Auto Pure number fraction (Bld) 0.1 E9/L Normal 0.0-0.5 [facility] Comment on above: Order Comment: Order added by Discern Expert. Performed By: #### 2 679213, 5603848, 48176638, 4886745, 0813456, 55801470, 0319176, 7118721, 97975071, 52657292 ####[address] [address] Lymphocytes/100 WBC Auto (Bld) 18.0 % Normal 14.0-50.0 [facility] Comment on above: Order Comment: Order added by Discern Expert. Performed By: #### 2 103782, 7875422, 14472148, 0069926, 3720302, 37534470, 7487172, 9073111, 47941083, 30392449 ####[address] [place] [address] Lymphocytes/Leukoc ytes Auto Pure number fraction (Bld) 0.9 E9/L Low 1.0-4.0 [facility] Comment on above: Order Comment: Order added by Discern Expert. Performed By: #### 2 632385, 5727631, 66760945, 8617808, 1118063, 22413579, 4378196, 1609183, 66740305, 45116864 ####[address] [place] [address] Monocytes/100 WBC Auto (Bld) 9.0 % Normal 4.0-14.0 [facility] Comment on above: Order Comment: Order added by Discern Expert. Performed By: #### 2 498828, 6394989, 93768948, 4462220, 9783669, 42781201, 0133055, 1377582, 86012115, 47134797 ####[address] [place] [address] Monocytes/Leukocyt es Auto Pure number fraction (Bld) 0.5 E9/L Normal 0.2-1.0 [facility] Comment on above: Order Comment: Order added by Discern Expert. Performed By: #### 2 363662, 2467476, 95494717, 7247666, 1744741, 46847449, 3704411, 8716740, 36987096, 67181406 ####[address] [place] [address] Neutrophils/100 WBC Auto (Bld) 70.4 % Normal 36.0-75.0 [facility] Comment on above: Order Comment: Order added by Discern Expert. Performed By: #### 2 766733, 1460854, 76136130, 6200642, 5073023, 26524823, 2054805, 2806189, 05673811, 57521236 ####[address] [place] [address] Neutrophils/Leukoc ytes Auto Pure number fraction (Bld) 3.6 E9/L Normal 2.0-7.5 [facility] Comment on above: Order Comment: Order added by Discern Expert. Performed By: #### 2 584601, 1413966, 34744899, 6520651, 0259638, 46584631, 9082735, 0137707, 24277840, 84496530 ####[address] [place] [address] BB Draw & Holdon 02-07-2018 BB D&H Sample drawn for Blood Ba Normal [facility] Comment on above: Performed By: #### 2 455152, 5146802, 23129728, 1523736, 2075905, 49808834, 2443997, 6036476, 66814121, 67433100 ####[facility] [address] [place] [address] BMPon 02-07-2018 Creatinine mass conc 0.7 mg/dL Normal 0.5-1.3 [facility] Comment on above: Performed By: #### 2 909547, 4641536, 79304527, 2908388, 3061934, 80375468, 6970580, 4935605, 39413347, 76230284 ####[facility] [address] [place] [address] Urea nitrogen mass conc 9 mg/dL Normal 5-21 [facility] Comment on above: Performed By: #### 2 623486, 9056394, 35634391, 4701044, 0993005, 51238762, 5249233, 1869920, 11082849, 14268360 ####[facility] [address] [place] [address] Urea nitrogen/Creatinin e mass ratio 13 No Units Normal 10-20 [facility] Comment on above: Performed By: #### 2 743476, 9555010, 42787931, 7005522, 8196257, 16445763, 9488758, 4377180, 07226330, 71626112 ####[facility] [address] [place] [address] Anion gap 3 molar conc 9 mmol/L Normal 6-16 [facility] Comment on above: Performed By: #### 2 145862, 1767483, 85602334, 8657690, 2265083, 32207949, 2656942, 8455943, 51327585, 38966394 ####[facility] [address] [place] [address] Calcium mass conc 8.5 mg/dL Low 8.9-11.1 [facility] Comment on above: Performed By: #### 2 874249, 3464980, 42987783, 1690061, 1397767, 27676408, 0344794, 6997283, 91042613, 13417054 ####[facility] [address] [place] [address] Chloride molar conc 105 mmol/L Normal 101-111 [facility] Comment on above: Performed By: #### 2 165568, 9014557, 44061439, 8391171, 9119764, 99473494, 2677563, 6949447, 99215378, 83153661 ####[facility] [address] [place] [address] CO2 molar conc 27 mmol/L Normal 21-31 [facility] Comment on above: Performed By: #### 2 485231, 3027461, 46669152, 0503774, 9089783, 23408195, 1308894, 4676087, 13897191, 17447582 ####[facility] [address] [place] [address] Glucose mass conc 92 mg/dL Normal 55-199 [facility] Comment on above: Result Comment: If t his glucose result represents a fasting glucose, interpretation should refer to the following reference range: 55-99 mg/dL Performed By: #### 2 073021, 9992990, 29731750, 1156153, 3203358, 74724054, 2186789, 7403534, 24979914, 82316329 ####[facility] [address] [place] [address] Potassium molar conc 4.0 mmol/L Normal 3.5-5.3 [facility] Comment on above: Performed By: #### 2 692282, 5727818, 32765385, 0635665, 7293363, 81882425, 3402422, 8612220, 11032922, 28840027 ####[facility] [address] [place] [address] Sodium molar conc 137 mmol/L Normal 135-145 [facility] Comment on above: Performed By: #### 2 349787, 0939264, 97362245, 4802175, 5940833, 08045780, 2794780, 6261620, 69794882, 96654718 ####[address] [place] [address] CBC w/ Auto Diffon 8 Erythrocyte distribution width Auto Ratio (RBC) 13.1 % Normal 10.9-14.2 [facility] Comment on above: Performed By: #### 2 371701, 0101597, 07995990, 8000374, 0125882, 50994141, 8862560, 9191171, 20202821, 15736857 ####[address] [address] Hematocrit Auto Volume Fraction (Bld) 37.0 % Normal 34.0-46.0 [facility] Comment on above: Performed By: #### 2 673123, 8734869, 47219075, 4048086, 9210595, 28975631, 2169275, 7103409, 14442590, 55224813 ####[address] [address] Hemoglobin mass conc (Bld) 13.0 g/dL Normal 12.0-16.0 [facility] Comment on above: Performed By: #### 2 842796, 3395139, 99227993, 1349227, 6668264, 89943059, 6617640, 5228799, 57610435, 52490951 ####[address] [place] [address] MCH Auto Entitic mass (RBC) 29.8 pg Normal 27.0-34.0 [facility] Comment on above: Performed By: #### 2 023071, 9950925, 88417610, 1012143, 0279700, 02959555, 7551176, 9224593, 88931092, 38693735 ####[address] [address] MCHC Auto mass conc (RBC) 35.1 g/dL Normal 31.4-39.3 [facility] Comment on above: Performed By: #### 2 819818, 8034411, 20469227, 4605782, 2760176, 53905881, 4242635, 1628106, 66861289, 44130561 ####[facility] [address] [place] [address] MCV Auto Entitic volume (RBC) 84.8 fL Normal 80.0-100.0 [facility] Comment on above: Performed By: #### 2 400207, 8055875, 20153526, 5174959, 4160650, 52813325, 0896885, 2183440, 57029418, 62650089 ####[address] [place] [address] Platelet mean volume Auto Entitic volume (Bld) 8.4 fL Normal 6.4-10.8 [facility] Comment on above: Performed By: #### 2 482523, 9614459, 66304468, 6398203, 6196341, 07683906, 4508830, 8825183, 25379065, 63416986 ####[address] [address] Platelets Auto #/vol (Bld) 166.0 E9/L Normal 150.0-500. 0 [facility] Comment on above: Performed By: #### 2 244986, 1049150, 51990997, 1551600, 8409945, 01117587, 4305872, 6393963, 18819884, 28428319 ####[facility] [address] [place] [address] RBC Auto #/vol (Bld) 4.4 E12/L Normal 4.3-5.9 [facility] Comment on above: Performed By: #### 2 651658, 5121793, 03163491, 2598869, 8501673, 61026578, 4776073, 0006878, 49405251, 52351606 ####[address] [place] [address] WBC corrected for nucl RBC Auto #/vol (Bld) 5.1 E9/L Normal 4.0-11.0 [facility] Comment on above: Performed By: #### 2 195763, 5341712, 18875519, 8437927, 8475180, 36414248, 1183063, 4082249, 69751448, 14140946 ####[facility] [address] [place] [address] CT Head or Brain w/o Contras ton 02-07-2018 CT Head or Brain w/o Contrast [...] M.D. Transcribed by: SOLOMON Technologist: HERMANN Live [facility] CTA Headon 02-07-2018 CTA Head Exam Date/Time:2017 [...] Ric Oneal MD Transcribed by: SOLOMON Technologist: RANJITHTechnicchicho CommentsGFR (mL/min/1/73m2) >60Contrast: Isovue 370Contrast amount in ml's: 70 Normal [facility] Consultation Noteon 02-08-20 Consultation Note Chief Complaint head ache Reason [...] or hemorrhage. The patient was evaluated by [facility] stroke service and was not felt to be a acute intervention candidate. The patient was admitted to the hospital for further workup and evaluation. The patient has a pacemaker which is not clear if it is MRI compatible. The patient sees a customer service professional from [facility]. The patient states she still has some [...] left upper and lower extremity Cerebellar exam: Jmckpf-pl-aezc reveals Some dysmetria in the left finger to nose. Gait is normal The neurological exam was performed by a healthcare professional which was witnessed and supervised by me via video telemedicine visit consented to by the patient or appropriate patient outbound sales representative. Assessment/Plan The patient is a 37-year-old [...] Lymph Auto 18.0 % 02/06/2018 23:57 EDT Ferry Auto 9.0 % 02/06/2018 23:57 EDT Eos Auto 1.8 % 02/06/2018 23:57 EDT Basophil Auto 0.8 % 02/06/2018 23:57 EDT Neutro Absolute 3.6 E9/L 02/06/2018 23:57 EDT Lymph Absolute 0.9 E9/L (Low) 02/06/2018 23:57 EDT Ferry Absolute 0.5 E9/L 02/06/2018 23:57 EDT Eos [...] 23:57 EDT New Troponin Assay 11/02/13 [place] Cutoff value > or = 0.03 ng/mL [...] Yaw Lane M.D. 02/06/2018 23:56 EDT Normal [facility] Comment on above: Result Comment: Elec tronically Signed By: Claudia Lu RN\.br\Date and Time Signed: 02/07/18 09:11 EDT\.br\Electronically Co-Signed By: Claudia Lu RN\.br\Date and Time Co-Signed: 02/07/18 09:27 EDT\.br\Electronically Co-Signed By: Amador Hallman MD\.br\Date and Time Co-Signed: 02/07/18 10:19 EDT ED Clinical Summaryon 2017 ED Clinical Summary [place] [id number] ED Clinical SummaryPerson Information Name: CARITO RIOS/Sierra Age: 37 Years : 1980 12:00 AM Sex: Female Language:Bahamian PCP: ROCK DUNBAR MD Marital Status: Visit Id: Visit Reason:Headache; HISTORY BELLS PALSY AND STROKE LIKE SYMPTOMS Speciality: Acuity: 3 Enc Type: Observation Med Service: Medical Arrival:02/06/2018 9:55 PM Discharge: LOS: 000 05:54 Checkin:02/06/2018 9:55 PM Checkout: 02/07/2018 3:49 AM Dispo Type: Admitted as IP to this [facility] EVENTS:Event Name Event Status Request Date/Time Start [...] AM Meds Admin Request 02/07/2018 3:38 AM ADDR[address] [facility] [place] [id number] PHYS DOC NOTES: MEDICAL INFORMATION: Prescriptions Given:PATIENT EDUCATION INFORMATION: Instructions: Follow up:DIAGNOSIS:1:Hemisensory deficit; 2:At risk for stroke; 3:Ischemic cardiomyopathy; 4:History of Rae's palsy; Stroke-like symptom Normal [facility] ED Note-Physicianon 02-08-20 ED Note-Physician Basic Information [...] the first hour we then contacted the [facility]. I discussed the case in detail with [...] Basic Metabolic Panel CBC w/ Auto Diff [place] Stroke Scale Communication Order Physician to Nursing Continuous Pulse Oximetry CT Head or Brain w/o Contrast CVA/TIA Inclusion/Exclusion Criteria ECG 12 Lead Adult ED Cardiac Monitoring eGFR Magnesium Level NIH Stroke Scale Oxygen Therapy PT & PTT Saline Lock Insert Stroke Quality Measures Troponin 0 Hr. TSH With T4fr Reflex Vital Signs XR Chest Single ViewMedications Administered Given [id number] [F], 25 mg, IV morphine 2 mg/mL [...] Lymph Auto: 18 % (02/06/18 23:57:00 EDT) Ferry Auto: 9 % (02/06/18 23:57:00 EDT) Eos Auto: 1.8 % (02/06/18 23:57:00 EDT) Basophil Auto: 0.8 % (02/06/18 23:57:00 EDT) Neutro Absolute: 3.6 E9/L (02/06/18 23:57:00 EDT) Lymph Absolute: 0.9 E9/L Low (02/06/18 23:57:00 EDT) Ferry Absolute: 0.5 E9/L (02/06/18 23:57:00 EDT) Eos [...] mg/dL (02/06/18 23:47:00 EDT) POC Device SN: [id number] (02/06/18 23:47:00 EDT) POC Username: VALDEZ DOSHI (02/06/18 23:47:00 EDT)Diagnostic Results No qualifying data available. CT brain showed no acute changes. Normal [facility] Comment on above: Result Comment: Elec tronically Signed By: Darling LEIJA, Mesfin\.br\Date and Time Signed: 02/07/18 02:59 EDT ED Patient Education Noteon 02-07-2018 ED Patient Education Note Normal [facility] ED Patient Summaryon 018 ED Patient Summary (Inserted Image. Lolis ble to display) [place] [address] Patient Discharge Instructions Person Information Name: CARITO RIOS Age: 37 Years Date: 02/06/2018 9:55 PMDischarge Diagnosis: 1:Hemisensory deficit; 2:At risk for stroke; 3:Ischemic cardiomyopathy; 4:History of Rae's palsy; Stroke-like symptom Primary Care Physician: ROCK DUNBAR MD [facility]Prhigh[facility] Provider: Darling LEIJA, [facility] Livestock Rancher:None The exam and treatment you received in the Emergency Department were for an urgent problem and are not intended as complete care. It is important that you follow up with a doctor, nurse practitioner, or physician?s visitor information assistant for ongoing care. If your symptoms [...] opioids can be used to help relieve utgkftbq-ni-iyhuus pain and are often prescribed following a [...] be struggling with addiction, tell your health pediatric critical care nurse and ask for guidance or call SAMHSA?S National Helpline at 4-446-050-WWOH. v Source: [place] Department of Health and Human Services/Center for Disease Control & Prevention [facility] Medications Given:Medication Dose Route ondansetron [...] Mouth 2 times a day.Comment: Pharmacy Information: [facility] Navya Thank you for choosing [facility] Patient Education Materials: TOVA Dinh MACKENZIE L , have received the following patient education materials/instructions and have verbalized understanding: Patient Education Materials: Follow-up Instructions: Prescriptions: Patient Signature Date Clinician/Nurse Signature Date 02/07/18 03:49:22 Normal [facility] History and Physicalon 02-07 History and Physical [...] a request was made to transfer to [facility] for further stroke workup but patient was declined as he was leaving the concern for acute CVA by CT. At the time of my evaluation, head [...] Lymph Auto: 18 % (02/06/18 23:57:00 EDT) Ferry Auto: 9 % (02/06/18 23:57:00 EDT) Eos Auto: 1.8 % (02/06/18 23:57:00 EDT) Basophil Auto: 0.8 % (02/06/18 23:57:00 EDT) Neutro Absolute: 3.6 E9/L (02/06/18 23:57:00 EDT) Lymph Absolute: 0.9 E9/L Low (02/06/18 23:57:00 EDT) Ferry Absolute: 0.5 E9/L (02/06/18 23:57:00 EDT) Eos [...] mg/dL (02/06/18 23:47:00 EDT) POC Device SN: [id number] (02/06/18 23:47:00 EDT) POC Username: VALDEZ DOSHI [...] apnea: Mother. Stroke: Mother and Father. Normal [facility] Comment on above: Result Comment: Elec tronically Signed By: Eliel Carcamo MD\.br\Date and Time Signed: 02/07/18 03:54 EDT Interdisciplinary Note - Gustavo e Manageron 02-07-2018 Interdisciplinary Note - Recovery Room Nurse Rounding with Perez Garvey Ph. Yane DE LA VEGA, Lisa RN, white board updated, reviewed observation status with patient, and went over any other questions reguarding her Insurance, verified with patient that Dr. Dunbar is her PCP and she sees Dr. 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 Patient stated that she just seen both of them about a month ago. Dr. Saeg went over treatment plan with patient to have Neuro consult today and if improvement with headaches, a possible plan of discharge today as well, Patient's boyfriend will transport home. No other needs or concerns voiced. Normal [facility] Magnesiumon 02-07-2018 Magnesium mass conc 1.9 mg/dL Normal 1.3-2.4 [facility] Comment on above: Performed By: #### 2 286953, 9978581, 56548354, 0784959, 4098964, 53206841, 7575406, 6129650, 33301562, 14476246 ####[facility] [address] [place] [address] PT & PTTon 02-07-2018 aPTT Coag time (Bld) 35.4 second(s) Normal 25.1-36.5 [facility] Comment on above: Result Comment: Hepa rin therapeutic range (represented by Anti-Factor Xa activity of 0.2 - 0.4 U/mL) corresponds to PTT of 53.9 - 87.4 sec. Performed By: #### 2 939074, 0557477, 55252062, 7721823, 0557191, 22247150, 0591832, 1687436, 72109446, 32692638 ####[facility] [address] [place] [address] INR Coag RelTime (PPP) 1.0 {INR} Invalid Interpretation Code [facility] Comment on above: Result Comment: INR results are specifically intended to assess patients stabilized on long-term Anticoagulation therapy suggested INR?s ?Less Intensive Anticoagulation? 2.0 ? 3.0Conventional Range 3.0 ? 4.5 Performed By: #### 2 712658, 1401225, 67066903, 8620188, 8138175, 39674383, 4223896, 1821367, 65114778, 08673954 ####[facility] [address] [place] [address] Prothrombin time (PT) Coag time (PPP) 10.9 second(s) Normal 10.2-12.9 [facility] Comment on above: Performed By: #### 2 143108, 5392155, 24043398, 3222554, 1124508, 16034389, 4709084, 3649738, 24557948, 84392976 ####[facility] [address] [place] [address] Progress Note - Recovery Room Nurse on 02-07-2018 Progress Note - Recovery Room Nurse Rounding with Perez Garvey Ph. Yane DE LA VEGA, Lisa RN, white board updated, reviewed observation status with patient, and went over any other questions reguarding her Insurance, verified with patient that Dr. Dunbar is her PCP and she sees Dr. 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 Patient stated that she just seen both of them about a month ago. Dr. Sgae went over treatment plan with patient to have Neuro consult today and if improvement with headaches, a possible plan of discharge today as well, Patient's boyfriend will transport home. No other needs or concerns voiced. Normal [facility] Progress Note-Nurseon 2017 Protein mass conc Patient is complaing of itching proximal to the IV site. Pt reports itching bgan to occur after administration of morphine. Physician made aware and gave verbal order to administer 25 mg of benadryl Normal [facility] Protein mass conc 2330 This nurse got [...] called. [facility]. 2335 Physician at bedside at this time assessing patient. NIH completed at this time by physician. 2344 This nurse and physician spoke at this time regarding situation with patient. Physician stated to call Rapid response at this time. Rapid response stroke called. 2347 blood sugar obtained at this time, reading [id number] This nurse took pt to CT at this time. Normal [facility] TSH With T4fr Reflexon 02-07 Thyrotropin Qn 2.90 mcIU/mL Normal 0.34-5.60 [facility] Comment on above: Performed By: #### 2 344608, 8390961, 04137519, 6786378, 5654999, 19919051, 1534965, 7595728, 26202980, 66870407 ####[facility] [address] [place] [address] Troponin 0 Hr.on 02-07-2018 Troponin I.cardiac mass conc ng/mL Normal <=0.03 [facility] Comment on above: Result Comment: New Troponin Assay 11/02/13ROC [place] Cutoff value > or = 0.03 ng/mL in conjunction with clinical conditions of myocardial infarction.(www.escardio.org/guidelines) Performed By: #### 2 213614, 0837609, 05350276, 0810099, 7721344, 39136258, 2900304, 5168936, 73588034, 28868232 ####[facility] [address] [place] [address] XR Chest Single Viewon 02-07 INR Coag [...] MD Transcribed by: SOLOMON Technologist: HERMANN Live [facility] eGFRon 02-07-2018 GFR/1.73 sq M predicted among blacks MDRD vol rate/area (S/P/Bld) mL/min/{1.73_m2} Normal >=59 [facility] Comment on above: Order Comment: Order added by Discern Expert. Result Comment: eGFR is race adjusted. AA=. Performed By: #### 2 779917, 3715437, 16810298, 0603425, 6891591, 51239543, 9683003, 5625192, 24722676, 48197703 ####[facility] [address] [place] [address] GFR/1.73 sq M predicted among non-blacks MDRD vol rate/area (S/P/Bld) mL/min/{1.73_m2} Normal >=59 [facility] Comment on above: Order Comment: Order added by Discern Expert. Result Comment: Workplace Relations Adviser nya kidney disease could be indicated at eGFR's of less than 60 mL/min/1.73m2. Kidney failure is indicated at less than 15 mL/min/1.73m2. Performed By: #### 2 591173, 8027690, 14158917, 2766600, 2602720, 07827256, 4036633, 4698919, 26543337, 08676990 ####[facility] [address] [place] [address] Coding Summary.on 01-07-2018 Coding Summary. CODING DATE: 018 FINAL [facility] STATUS: Home (Routine DC) PAYOR: Medicaid EA DESCRIPTION 0413 CARDIOGRAM 0408 LEVEL I HEMATOLOGY [...] Revised Date Saved: 01/07/2018 09:50 am Normal [facility] XR Chest 2 Viewson 8 INR Coag [...] M.D. Transcribed by: SOLOMON Technologist: ALIN Normal [facility] Auto Diffon 01-06-2018 Basophils Auto #/vol (Bld) 0.9 % Normal 0.0-2.0 [facility] Comment on above: Order Comment: Order Added by Discern Expert. Performed By: #### 2 200567, 4129340, 42719784, 7994398, 0977894, 01243771, 1460228, 0569433, 72091574, 97939478 ####[facility] [address] [place] [address] Basophils/Leukocyt es Auto Pure number fraction (Bld) 0.0 E9/L Normal 0.0-0.2 [facility] Comment on above: Order Comment: Order Added by Discern Expert. Performed By: #### 2 602436, 6559669, 48283248, 9096243, 5527815, 93016042, 2636680, 0202607, 99816713, 40309028 ####[place] [place] [address] Eosinophils/100 WBC Auto (Bld) 2.3 % Normal 0.0-8.0 [facility] Comment on above: Order Comment: Order Added by Discern Expert. Performed By: #### 2 762385, 1110739, 60711784, 8130679, 6963680, 93281692, 8591122, 8898001, 50145979, 55966622 ####[address] [place] [address] Eosinophils/Leukoc ytes Auto Pure number fraction (Bld) 0.1 E9/L Normal 0.0-0.5 [facility] Comment on above: Order Comment: Order Added by Discern Expert. Performed By: #### 2 231808, 7092017, 68693215, 4933158, 8080612, 15217973, 3268810, 0914767, 83259403, 01615391 ####[address] [address] [place] [address] Lymphocytes/100 WBC Auto (Bld) 17.2 % Normal 14.0-50.0 [facility] Comment on above: Order Comment: Order Added by Discern Expert. Performed By: #### 2 677585, 8429712, 32907780, 9027462, 9299051, 78207066, 4206328, 2888128, 82049265, 10108224 ####[place] [place] [address] Lymphocytes/Leukoc ytes Auto Pure number fraction (Bld) 0.9 E9/L Low 1.0-4.0 [facility] Comment on above: Order Comment: Order Added by Discern Expert. Performed By: #### 2 965237, 9464321, 50396939, 1705745, 9939783, 95121862, 9801110, 5455392, 01528772, 44115024 ####[address] [place] [address] Monocytes/100 WBC Auto (Bld) 6.9 % Normal 4.0-14.0 [facility] Comment on above: Order Comment: Order Added by Discern Expert. Performed By: #### 2 289323, 2128776, 00106839, 5199539, 2429597, 25499049, 1146042, 0558389, 88264876, 49875403 ####[facility] [address] [place] [address] Monocytes/Leukocyt es Auto Pure number fraction (Bld) 0.4 E9/L Normal 0.2-1.0 [facility] Comment on above: Order Comment: Order Added by Discern Expert. Performed By: #### 2 660738, 9005964, 24035565, 0704753, 2977182, 32866985, 9327416, 4274040, 24221732, 09035035 ####[place] [place] [address] Neutrophils/100 WBC Auto (Bld) 72.7 % Normal 36.0-75.0 [facility] Comment on above: Order Comment: Order Added by Discern Expert. Performed By: #### 2 208970, 5309125, 81718461, 1190814, 1428463, 96595024, 8804098, 4350445, 67304977, 99503912 ####[address] [place] [address] Neutrophils/Leukoc ytes Auto Pure number fraction (Bld) 3.7 E9/L Normal 2.0-7.5 [facility] Comment on above: Order Comment: Order Added by Discern Expert. Performed By: #### 2 326735, 4368767, 83876284, 4257672, 2717714, 19749530, 6891456, 5605594, 34764087, 23790363 ####[facility] [address] [place] [address] BMPon 01-06-2018 Creatinine mass conc 0.7 mg/dL Normal 0.5-1.3 [facility] Comment on above: Performed By: #### 2 228256, 8919831, 58701885, 8559690, 6954419, 08145931, 5148603, 7119501, 38512428, 79844337 ####[facility] [address] [place] [address] Urea nitrogen mass conc 7 mg/dL Normal 5-21 [facility] Comment on above: Performed By: #### 2 783676, 2071933, 24101497, 9205097, 1038860, 80464400, 6688849, 8567820, 80837253, 59674491 ####[facility] [address] [place] [address] Urea nitrogen/Creatinin e mass ratio 10 No Units Normal 10-20 [facility] Comment on above: Performed By: #### 2 440112, 7504458, 78996177, 1537372, 7484675, 75370599, 0277361, 2935902, 08790226, 48296008 ####[facility] [address] [place] [address] Anion gap 3 molar conc 12 mmol/L Normal 6-16 [facility] Comment on above: Performed By: #### 2 528885, 0009619, 24517306, 7353351, 8877864, 63617805, 3418670, 2597899, 25609240, 44245259 ####[facility] [address] [place] [address] Calcium mass conc 8.8 mg/dL Low 8.9-11.1 [facility] Comment on above: Performed By: #### 2 389746, 7878507, 14112318, 4528083, 8502354, 22250676, 8634664, 2243690, 48108476, 67134280 ####[facility] [address] [place] [address] Chloride molar conc 105 mmol/L Normal 101-111 [facility] Comment on above: Performed By: #### 2 113228, 3248948, 13888802, 3231595, 6490115, 97243336, 9181181, 2852467, 84897809, 77476937 ####[facility] [address] [place] [address] CO2 molar conc 24 mmol/L Normal 21-31 [facility] Comment on above: Performed By: #### 2 442173, 5176330, 27337864, 8468773, 2511562, 25219100, 0871115, 5844438, 24948773, 86709174 ####[facility] [address] [place] [address] Glucose mass conc 117 mg/dL Normal 55-199 [facility] Comment on above: Result Comment: If t his glucose result represents a fasting glucose, interpretation should refer to the following reference range: 55-99 mg/dL Performed By: #### 2 540631, 7848103, 65630663, 3751683, 8482453, 08440896, 1400714, 7940859, 35345763, 14233330 ####[facility] [address] [place] [address] Potassium molar conc 3.7 mmol/L Normal 3.5-5.3 [facility] Comment on above: Performed By: #### 2 031320, 1948244, 43360467, 3310252, 1436049, 00762962, 2798928, 3877280, 96513200, 79700166 ####[facility] [address] [place] [address] Sodium molar conc 137 mmol/L Normal 135-145 [facility] Comment on above: Performed By: #### 2 451343, 9294574, 06008718, 5578165, 8403752, 95674671, 1095891, 8847980, 75852018, 67765185 ####[facility] [address] [place] [address] BNPon 01-06-2018 Natriuretic peptide B mass conc (Bld) 8 pg/mL Normal 5-80 [facility] Comment on above: Performed By: #### 2 368864, 2577962, 96329884, 1279136, 5541381, 99026205, 8694915, 5802353, 73910439, 37916335 ####[address] [place] [address] CBC w/ Auto Diffon 8 Erythrocyte distribution width Auto Ratio (RBC) 14.0 % Normal 10.9-14.2 [facility] Comment on above: Performed By: #### 2 336169, 2549418, 30090125, 0984521, 4451436, 97966391, 6007350, 1548941, 16374268, 67050292 ####[address] [place] [address] Hematocrit Auto Volume Fraction (Bld) 38.2 % Normal 34.0-46.0 [facility] Comment on above: Performed By: #### 2 753901, 9536575, 98318205, 6723182, 9058505, 50213532, 2693102, 2147641, 99760163, 79859820 ####[address] [address] Hemoglobin mass conc (Bld) 13.5 g/dL Normal 12.0-16.0 [facility] Comment on above: Performed By: #### 2 925953, 5680149, 04338324, 3779089, 5262882, 68181486, 0844162, 8388625, 62122506, 33938710 ####[address] [place] [address] MCH Auto Entitic mass (RBC) 30.3 pg Normal 27.0-34.0 [facility] Comment on above: Performed By: #### 2 932330, 8763034, 01266111, 9473228, 7020364, 65778409, 2533669, 3361807, 67174786, 61127421 ####[address] [place] [address] MCHC Auto mass conc (RBC) 35.4 g/dL Normal 31.4-39.3 [facility] Comment on above: Performed By: #### 2 334012, 0072621, 48649383, 6361258, 7011659, 58951227, 0215398, 2081345, 47237037, 45009257 ####[facility] [address] [place] [address] MCV Auto Entitic volume (RBC) 85.6 fL Normal 80.0-100.0 [facility] Comment on above: Performed By: #### 2 680902, 6152164, 37832474, 5790904, 2892735, 05494078, 2336943, 3971832, 86598043, 25338756 ####[address] [place] [address] Platelet mean volume Auto Entitic volume (Bld) 8.7 fL Normal 6.4-10.8 [facility] Comment on above: Performed By: #### 2 015014, 5768041, 31012540, 5144773, 6692303, 84606927, 9059706, 9875299, 26283960, 91464637 ####[place] [address] Platelets Auto #/vol (Bld) 178.0 E9/L Normal 150.0-500. 0 [facility] Comment on above: Performed By: #### 2 894140, 1740836, 01448960, 0288744, 9893816, 56410457, 2299274, 4480765, 26721433, 49169384 ####[address] [place] [address] RBC Auto #/vol (Bld) 4.5 E12/L Normal 4.3-5.9 [facility] Comment on above: Performed By: #### 2 245647, 9709631, 21962891, 3922975, 5178287, 73784478, 9858410, 0148782, 67969781, 64989144 ####[address] [place] [address] WBC corrected for nucl RBC Auto #/vol (Bld) 5.1 E9/L Normal 4.0-11.0 [facility] Comment on above: Performed By: #### 2 972817, 3152861, 20977894, 8698322, 7558332, 96341773, 3488362, 2743391, 51604239, 66309755 ####[facility] [address] [place] [address] ED Clinical Summaryon 2017 ED Clinical Summary [address] [address] ED Clinical SummaryPerson Information Name: Suzette RIOS/Sierra Age: 37 Years : 1980 12:00 AM Sex: Female Language:Bahamian PCP: ROCK DUNBAR MD Marital Status: Visit [...] PM 01/06/2018 9:51 PM 01/06/2018 9:51 PM ADDRESS:[address] [facility] [id number] PHYS DOC NOTES: MEDICAL INFORMATION: Prescriptions Given:Prescription Display meclizine (meclizine 25 mg Tab) 25 mg = 1 tab(s), Oral, TID, PRN Dizziness, # 30 tab(s), Refills(s) 0, Pharmacy: [facility]/pharmacy #[id number] Home Meds Display alprazolam (Xanax 1 mg Tab) 1 mg = 1 tab(s), Oral, TID, PRN for anxiety, Refills(s) 0 citalopram (CeleXA 20 mg Tab) 20 mg = 1 tab(s), Oral, Daily olanzapine (olanzapine 5 mg oral tablet) 5 mg = 1 tab(s), Oral, Daily pantoprazole (pantoprazole 40 mg Oral EC Tab) 40 mg = 1 tab(s), Oral, BID PATIENT EDUCATION INFORMATION: Instructions:Dizziness, Rfah-su-Wlul; Vertigo Follow up:With: Address: When: ROCK DUNBAR [address] [place] [address] [employer] (1Mobile Action In 3 days 01/09/2018 Comments: Call physician if symptoms worsen Return to ED if symptoms worsen DIAGNOSIS:1:Vertigo Normal [facility] ED Note-Physicianon 01-07-20 ED Note-Physician Basic Information Ti me Seen: Jada Echols DO Joceline 01/06/2018 19:47Chief Complaint Pt with LLQ abdominal [...] meclizine 25 mg Tab, 25 mg, Oral qaimyc26Wgygrojxe [F], 12.5 mg, IV PushDisposition Plan Patient Discharge Condition Improved Discharge Disposition Home Discharge Prescription List Prescriptions meclizine 25 mg Tab, 25 mg= 1 tab(s), Oral, TID, PRN Follow-up With When Contact Information ROCK DUNBAR In 3 days 01/09/2018 EDT [address] [place] [address]- Business (1) Additional Instructions: Call physician if symptoms worsen Return to ED if symptoms worsen Patient Education Dizziness, Ctlf-dy-Qwff VertigoProblem List/Past Medical History Ongoing Cardiomyopathy CHF [...] gm/dL (01/06/18 19:45:00 EDT) RDW: 14 % (01/06/18:45:00 EDT) Platelet: 178 E9/L (01/06/18 19:45:00 EDT) MPV: 8.7 fL (01/06/18:45:00 EDT) Neutro Auto: 72.7 % (01/06/18 19:45:00 EDT) Lymph Auto: 17.2 % (01/06/18 19:45:00 EDT) Ferry Auto: 6.9 % (01/06/18 19:45:00 EDT) Eos Auto: 2.3 % (01/06/18 19:45:00 EDT) Basophil Auto: 0.9 % (01/06/18 19:45:00 EDT) Neutro Absolute: 3.7 E9/L (01/06/18 19:45:00 EDT) Lymph Absolute: 0.9 E9/L Low (01/06/18 19:45:00 EDT) Ferry Absolute: 0.4 E9/L (01/06/18 19:45:00 EDT) Eos [...] 73 bpm. Similar to previous EKGs. Normal [facility] Comment on above: Result Comment: Elec tronically Signed By: Jada Echols DO F\.br\Date and Time Signed: 01/06/18 21:33 EDT ED [...] to steady yourself.? If you need to system administration advisor one place for a long time, move [...] Revised: 08/29/2012 Document Reviewed: 05/26/2012ExitCare? Patient Information ?2014 [employer]. This information is not intended to replace [...] 08/29/2012 Document Reviewed: 12/24/2011ExitCare? Patient Information ?2014 [employer]. This information is not intended to replace advice given to you by your health care provider. Make sure you discuss any questions you have with your health care provider. Normal [facility] ED Patient Summaryon 018 ED Patient Summary (Inserted Image. Lolis ble to display) [place] [id number] Patient Discharge Instructions Person Information Name: CARITO RIOS Age: 37 Years Date: 01/06/2018 7:34 PMDischarge Diagnosis: 1:Vertigo Primary Care Physician: ROCK DUNBAR MD Provider InformationPrimary Provider: Jada Echols Livestock Rancher:None The exam and treatment you received in the Emergency Department were for an urgent problem and are not intended as complete care. It is important that you follow up with a doctor, nurse practitioner, or physician?s visitor information assistant for ongoing care. If your symptoms become worse or you do not improve as expected and you are unable to reach your usual health care provider, you should return to the Emergency Department. We are available 24 hours a day. CARITO RIOS has been given the following list of patient education materials, prescriptions and follow-up instructions: Follow-up Instructions:With: Address: When: ROCK DUNBAR [address] [place] [address] Business (1) In 3 days 01/09/2018 Comments: Call physician if symptoms worsen Return to ED if symptoms worsen In the event that this physician does not participate in your insurance network, please consult with your insurance company to find a nearby participating provider. Patient Education Materials:Dizziness, Yksi-lt-Hywg; Vertigo A MESSAGE TO ALL PATIENTS REGARDING OPIOIDS PRESCRIPTION OPIOIDS: WHAT YOU NEED TO KNOW Prescription opioids can be used to help relieve pjcitrhr-yz-mdmifk pain and are often prescribed following a [...] be struggling with addiction, tell your health pediatric critical care nurse and ask for guidance or call [facility]?S National Helpline at 9-239-859-HEOR. h Source: [place] Department of Health and Human Services/Center for Disease Control & Prevention [facility] Medications Given:Medication Dose Route Sodium Chloride 0.9% intravenous solution 1000.00 mL Initial Volume 1000.00 mL/hr IV Left Lower Forearm promethazine 12.50 mg IV Push Left Lower Forearm meclizine 25.00 mg Oral Medication Information:[id number], [address] [place] [address], [phone] (meclizine 25 mg Tab) 1 Tabs By [...] Tabs By Mouth every day.Comment: Pharmacy Information: [facility] Thank you for choosing [facility] Patient Education Materials: DizzinessDizziness means you [...] to steady yourself.? If you need to system administration advisor one place for a long time, move [...] Revised: 08/29/2012 Document Reviewed: 05/26/2012ExitCare? Patient Information ?2014 [employer]. This information is not intended to replace [...] 08/29/2012 Document Reviewed: 12/24/2011ExitCare? Patient Information ?2014 [employer]. This information is not intended to replace advice given to you by your health care provider. Make sure you discuss any questions you have with your health care provider.TOVA Dinh MACKENZIE , have received the following patient education materials/instructions and have verbalized understanding: Patient Education Materials: Dizziness, Eaad-wk-Fihk; Vertigo Follow-up Instructions: With: Address: When: ROCK DUNBAR [address] [place] [address] Business (3) In 3 days 01/09/2018 Comments: Call physician if symptoms worsen Return to ED if symptoms worsen Prescriptions: [meclizine (meclizine 25 mg Tab)] Patient Signature Date Clinician/Nurse Signature Date 01/06/18 21:51:17 Normal [facility] Magnesiumon 01-06-2018 Magnesium mass conc 1.9 mg/dL Normal 1.3-2.4 [facility] Comment on above: Performed By: #### 2 917274, 6951954, 06422368, 5200312, 7274366, 84909585, 7308251, 7513048, 29391813, 49166949 ####[facility] [address] [place] [address] PT & PTTon 01-06-2018 aPTT Coag time (Bld) 38.5 second(s) High 25.1-36.5 [facility] Comment on above: Result Comment: Hepa rin therapeutic range (represented by Anti-Factor Xa activity of 0.2 - 0.4 U/mL) corresponds to PTT of 53.9 - 87.4 sec. Performed By: #### 2 300012, 1295213, 43566172, 5346075, 6191815, 20780642, 0526423, 5663956, 96903356, 76591561 ####[facility] [address] [place] [address] INR Coag RelTime (PPP) 1.0 {INR} Invalid Interpretation Code [facility] Comment on above: Result Comment: INR results are specifically intended to assess patients stabilized on long-term Anticoagulation therapy suggested INR?s ?Less Intensive Anticoagulation? 2.0 ? 3.0Conventional Range 3.0 ? 4.5 Performed By: #### 2 979158, 6339823, 29481555, 7689640, 6510633, 61951207, 1771742, 3928332, 97495353, 71106056 ####[facility] [address] [place] [address] Prothrombin time (PT) Coag time (PPP) 11.3 second(s) Normal 10.2-12.9 [facility] Comment on above: Performed By: #### 2 765796, 2027948, 62845056, 0112421, 4205189, 98153768, 4002595, 7624594, 55837193, 64885396 ####[facility] [address] [place] [address] Progress Note - Pharmacyon 0 01-06-2018 Protein [...] comments:-Medications added:OlanzapineCelexaXanaxPant oprazole-Medications removed:Clonazepam CarvedilolEffexor-Medications updated: Normal [facility] Troponin 0 Hr.on 01-06-2018 Troponin I.cardiac mass conc ng/mL Normal <=0.03 [facility] Comment on above: Result Comment: New Troponin Assay 11/02/13ROC TX Cutoff value > or = 0.03 ng/mL in conjunction with clinical conditions of myocardial infarction.(www.escardio.org/guidelines) Performed By: #### 2 021240, 1593041, 05737909, 1718682, 6302341, 45611218, 3289202, 1608523, 45758396, 05743795 ####[facility] [address] [place] [address] eGFRon 01-06-2018 GFR/1.73 sq M predicted among blacks MDRD vol rate/area (S/P/Bld) mL/min/{1.73_m2} Normal >=59 [facility] Comment on above: Order Comment: Order added by Discern Expert. Result Comment: eGFR is race adjusted. AA=. Performed By: #### 2 929112, 8765266, 40622558, 7336983, 4006441, 29117618, 9513050, 7649342, 93740832, 29839118 ####[facility] [address] [place] [address] GFR/1.73 sq M predicted among non-blacks MDRD vol rate/area (S/P/Bld) mL/min/{1.73_m2} Normal >=59 [facility] Comment on above: Order Comment: Order added by Discern Expert. Result Comment: Workplace Relations Adviser nya kidney disease could be indicated at eGFR's of less than 60 mL/min/1.73m2. Kidney failure is indicated at less than 15 mL/min/1.73m2. Performed By: #### 2 382416, 1083225, 30229546, 4579364, 1719402, 14075123, 0531239, 6812092, 59542483, 10576690 ####[facility] [address] [place] [address] Coding Summary.on 11-17-2017 Coding Summary. CODING DATE: 018 FINAL [facility] STATUS: Home (Routine DC) PAYOR: Medicaid EAPG DESCRIPTION 0331 LEVEL II DIAGNOSTIC NUCLEAR MEDICINE [...] Salazar Date Saved: 11/17/2017 08:31 am Normal [facility] NM Gastric Emptying Studyon 11-16-2017 NM Gastric Emptying Study Exam Date/Time:11/16/2017 10:40 EDTReason for Exam:NAUSEA ALONEReportIMPRESSION: NORMAL GASTRIC EMPTYING RATE.EXAM: Gastric Emptying StudyCOMPARISONS: NONEREASON FOR EXAMINATION: Delayed gastric emptying. TECHNIQUE: 0.9 mCi of [id number] was mixed with eggbeaters, toast, jelly and water.FINDINGS: Static images of the upper abdomen were obtained over 120 minutes afterthe ingestion of the radionuclide. The gastric emptying rate measures 2.5%. This denia normal gastric emptying rate. FINAL REPORT Dictated: 11/16/2017 1:19 pm Dayton Alarcon MD Signed (Electronic Signature): 11/16/2017 3:14 pm Signed by: Dayton Alarcon MD Transcribed by: geovanny Technologist: Yasmine CommentsDose (mCi Tc99m Sulfur Colloid): 0.9Dose Administered With: 3.5oz Egg Beaters, 1 Slice [place] with 14g Jelly, and 20mL WaterTime Frame Required to Ingest the Meal (mins): 7% Remainin.5 hr (Lower Limit 70%) 45.61.0 hr (Lower Limit 30%, Upper Limit 90%) 34.62.0 hr (Upper Limit 60%) 2.5 Normal [facility] Discharge Summaryon 10-20-19 18 Discharge Summary Admission Informatio n Admitting Physician - Yovanny Pollard DO Consulting Physician - Aguilar Pizano MD Admitting Diagnoses: Chronic GERD, 10/05/2017Hospital Course Pt is a 37 F admitted with complaints of chest pain. pt was ruled out for ACS with negative cardiac enzymes, no EKG changes. Pt was seen by [facility] cardiology who recommended no further cardiac workup and follow up with her customer service professional at [facility]. pt [...] Goodman Within 7 to 10 days [address] [place] [address]- Business (1) Additional Instructions: Call for followup appointment ROCK DUNBAR Within 3 to 5 days [address] [place] [address]- Business (1) Additional Instructions: Call for followup appointment follow up with your customer service professional at [facility] Within 1 week Additional Instructions: Normal [facility] Comment on above: Result Comment: Elec tronically Signed By: Alona LEIJA, Makayla\.br\Date and Time Signed: 10/19/17 11:09 EDT Coding Summary.on 10-08-2017 Coding Summary. CODING DATE: 018 FINAL [facility] STATUS: Home (Routine DC) PAYOR: Medicaid EAPG DESCRIPTION 0413 CARDIOGRAM 0457 VENIPUNCTURE 0400 LEVEL [...] disorders of kidney and ureter PYMT PROC [facility] STAT DESCRIPTION DOCTOR NAME DATE 20830 Katherine Pizano MD 10/05/2017 phagogastroduodenoscopy, flexible, transoral; with biopsy, single or multiple 31884 Anesthesia for upper Katherine Pizano MD 10/05/2017 gastrointestinal endoscopic procedures, endoscope introduced proximal to duodenum; not otherwise specified NOTE: The code number assigned matches the documented diagnosis and / or procedure in the patient's chart. However, the narrative phrase printed from the coding software may appear abbreviated, or result in slightly different terminology. Revised Coded By: Tequila Benito Revised Date Saved: 10/08/2017 01:11 pm [facility] Main OR Intraoperative Recor don 10-06-2017 Main OR Intraoperative Record IntraOp Document Type FT Summary Primary Physician: Aguilar Pizano MD Finalized Date/Time: 10/06/17 10:10:40 Pt. Name: CARITO RIOS/Sex: 1980 Female Med Rec #: [id number] Physician: Jada Echols DO Financial #: [id number] Pt. Type: O Room/Bed: [place] [address] Admit/Disch: 10/04/17 21:16:00 - 10/05/17 18:18:00 Institution: Case Times FT Entry 1 Patient Times In Room 10/05/17 15:11:00 Out Room 10/05/17 15:23:00 Procedure Times Start 10/05/17 15:14:00 Stop 10/05/17 15:19:00 Anesthesia Times Start 10/05/17 15:11:00 Stop 10/05/17 15:23:00 Last Modified By: Irena Mccauley CST 10/05/17 15:23:04 General Comments: 10/06/2017 Chart opened to review and send charges Dougie lock Case Attendance FT Entry 1 Entry 2 Entry 3 Case Attendee Madeline Goodman MD, Shaquille Masters DO, Robi Connors RN, Lila Sheikh Role Performed Surgeon - Primary Anesthesiologist of Duplicating Machine Operator - Primary Record Time In 10/05/17 15:11:00 10/05/17 15:11:00 10/05/17 15:11:00 Time Out 10/05/17 15:23:00 10/05/17 15:23:00 10/05/17 15:23:00 Procedure EGD(.) EGD(.) EGD(.) Comments Last Modified By: Rene RN, Bhavya López RN, Bhavya López RN, Bhavya Lindsey 10/05/17 15:23:07 10/05/17 15:23:07 10/05/17 15:23:07 Entry 4 Entry 5 Entry 6 Case Attendee Rene RN, Bhavya Dan CST, Jody Moreira CST, Amberly Matos Role Performed Duplicating Machine Operator - Other Scrub - Other Scrub - Primary Time In 10/05/17 15:11:00 10/05/17 15:14:00 10/05/17 15:11:00 Time Out 10/05/17 15:23:00 10/05/17 15:23:00 10/05/17 15:23:00 Procedure EGD(.) EGD(.) EGD(.) Comments Orienting to room. help in room. Last Modified By: Rene RN, Bhavya López RN, Bhavya López RN, Bhavya Lindsey 10/05/17 15:23:07 10/05/17 15:23:35 10/05/17 15:23:07 Perioperative [...] Given Participants Shaquille Sheikh Jr, DO, Waylon Camarena RN, Rene Waters RN, Lillie Johnson CST, Amberly Matos Time Out Complete 10/05/17 15:13:00 Outcomes Met? [...] and tissue Entry 1 Skin Integrity Intact, [place], Warm, and Skin Abnormality No Dry Outcomes [...] Head Large Press Points Checked Yes By Lila Connors RN, Robi Corbin Jr, DO, Ebel RN, Trisha A Outcomes Met? Yes Last Modified By: Bhavya [...] caused by extraneous objects Transport To OR Pre-Care Text: Transports according to individual needs. [...] RN Patient Status Stable Skin. Condition Intact, [place], Warm, and Dry Airway Maintenance Oxygen in Use? No Airway Device N/A Outcomes Met? Yes Last Modified By: Bhavya López RN 10/05/17 13:04:49 Post-Care Text: The patient is free from signs and symptoms of injury related to transfer/transport General Comments: Report given to PACU,RN/NISH,podiatric aide Administration FT Pre-Care Text: Verifies allergies, administers prescribed medications and solutions, administers prescribed antibiotic therapy and immunizing agents as ordered, evaluates response to medications Administers prescribed medications and solutions Entry 1 Expiration Date Yes Outcomes Met? Yes Verified Last Modified By: Bhavya López RN 10/05/17 13:04:58 Post-Care Text: The patient received appropriate medication(s) safely administered during the perioperative period For Kory please see scanned medication reconcilliation form for [...] Signed By: Bhavya López RN 10/05/17 15:23 Irena Mccauley CST 10/06/17 10:10 Normal [facility] Auto Diffon 10-05-2017 Basophils Auto #/vol (Bld) 1.1 % Normal 0.0-2.0 [facility] Comment on above: Order Comment: Order Added by Discern Expert. Performed By: #### 2 052227, 4778979, 78498093, 8849013, 7023634, 28297858, 0151461, 2026506, 55340200, 27451116 ####[facility] [address] [place] [address] Basophils/Leukocyt es Auto Pure number fraction (Bld) 0.0 E9/L Normal 0.0-0.2 [facility] Comment on above: Order Comment: Order Added by Discern Expert. Performed By: #### 2 962959, 6049671, 95768986, 4760991, 2182342, 11224210, 5313024, 1803791, 33098524, 15559940 ####[facility] [address] [place] [address] Eosinophils/100 WBC Auto (Bld) 2.2 % Normal 0.0-8.0 [facility] Comment on above: Order Comment: Order Added by Discern Expert. Performed By: #### 2 479852, 2460298, 36064898, 4802641, 8301406, 16551379, 3136449, 7884537, 06411458, 36124801 ####[facility] [address] [place] [address] Eosinophils/Leukoc ytes Auto Pure number fraction (Bld) 0.1 E9/L Normal 0.0-0.5 [facility] Comment on above: Order Comment: Order Added by Discern Expert. Performed By: #### 2 440352, 9704890, 09353781, 1583888, 2378986, 67065877, 8900865, 1408347, 04977399, 78668252 ####[address] [place] [address] Lymphocytes/100 WBC Auto (Bld) 22.6 % Normal 14.0-50.0 [facility] Comment on above: Order Comment: Order Added by Discern Expert. Performed By: #### 2 496453, 5661347, 01071837, 5633596, 2632059, 76141149, 4911526, 9455020, 64002204, 88147081 ####[address] [address] Lymphocytes/Leukoc ytes Auto Pure number fraction (Bld) 0.8 E9/L Low 1.0-4.0 [facility] Comment on above: Order Comment: Order Added by Discern Expert. Performed By: #### 2 042759, 7113952, 65582999, 3717433, 7183288, 90818109, 9087652, 2330348, 95180516, 27010098 ####[facility] [address] [place] [address] Monocytes/100 WBC Auto (Bld) 8.6 % Normal 4.0-14.0 [facility] Comment on above: Order Comment: Order Added by Discern Expert. Performed By: #### 2 460884, 1335946, 38135318, 0317724, 2308874, 76325556, 2215906, 5575745, 35252765, 21563171 ####[facility] [address] [place] [address] Monocytes/Leukocyt es Auto Pure number fraction (Bld) 0.3 E9/L Normal 0.2-1.0 [facility] Comment on above: Order Comment: Order Added by Discern Expert. Performed By: #### 2 372662, 2723629, 32235261, 2030041, 2680110, 75104442, 2503954, 9180313, 92995371, 76988159 ####[address] [place] [address] Neutrophils/100 WBC Auto (Bld) 65.5 % Normal 36.0-75.0 [facility] Comment on above: Order Comment: Order Added by Discern Expert. Performed By: #### 2 982054, 4099053, 00788981, 2648506, 5724064, 12366968, 0611617, 7231281, 24991787, 64072614 ####[address] [address] Neutrophils/Leukoc ytes Auto Pure number fraction (Bld) 2.2 E9/L Normal 2.0-7.5 [facility] Comment on above: Order Comment: Order Added by Discern Expert. Performed By: #### 2 315524, 2305082, 75954413, 2273371, 5960198, 77037490, 7544078, 5096975, 60116083, 75673066 ####[address] [place] [address] Basophils Auto #/vol (Bld) 0.9 % Normal 0.0-2.0 [facility] Comment on above: Order Comment: Order Added by Discern Expert. Performed By: #### 2 702205, 7998660, 49740103, 0784270, 1009727, 38855965, 4501988, 5059311, 67989208, 84681966 ####[address] [place] [address] Basophils/Leukocyt es Auto Pure number fraction (Bld) 0.0 E9/L Normal 0.0-0.2 [facility] Comment on above: Order Comment: Order Added by Discern Expert. Performed By: #### 2 461870, 5872035, 83675879, 5072190, 4447593, 97528946, 8075742, 3884262, 98690339, 48034595 ####[facility] [address] [place] [address] Eosinophils/100 WBC Auto (Bld) 1.9 % Normal 0.0-8.0 [facility] Comment on above: Order Comment: Order Added by Discern Expert. Performed By: #### 2 800894, 4991230, 87712542, 8712403, 8447892, 04071563, 3552834, 5942849, 40596921, 37912058 ####[address] [address] Eosinophils/Leukoc ytes Auto Pure number fraction (Bld) 0.1 E9/L Normal 0.0-0.5 [facility] Comment on above: Order Comment: Order Added by Discern Expert. Performed By: #### 2 543873, 0095979, 26318164, 4720140, 2904488, 64830728, 8500912, 4527354, 92170925, 33473393 ####[address] [place] [address] Lymphocytes/100 WBC Auto (Bld) 19.5 % Normal 14.0-50.0 [facility] Comment on above: Order Comment: Order Added by Discern Expert. Performed By: #### 2 181676, 3043404, 86053690, 9025516, 7630218, 94193741, 9298455, 3506693, 64881584, 48074667 ####[address] [place] [address] Lymphocytes/Leukoc ytes Auto Pure number fraction (Bld) 1.0 E9/L Normal 1.0-4.0 [facility] Comment on above: Order Comment: Order Added by Discern Expert. Performed By: #### 2 077878, 5987133, 76496663, 9807909, 9848568, 39510845, 1357047, 0721720, 15664237, 76946667 ####[address] [place] [address] Monocytes/100 WBC Auto (Bld) 7.8 % Normal 4.0-14.0 [facility] Comment on above: Order Comment: Order Added by Discern Expert. Performed By: #### 2 289597, 9775892, 08450812, 1239540, 0457897, 68398155, 4880112, 9860191, 22685265, 07547941 ####[address] [place] [address] Monocytes/Leukocyt es Auto Pure number fraction (Bld) 0.4 E9/L Normal 0.2-1.0 [facility] Comment on above: Order Comment: Order Added by Discern Expert. Performed By: #### 2 586081, 9511371, 61255165, 6027460, 0271774, 14424670, 6544155, 4943995, 33303154, 36170353 ####[address] [place] [address] Neutrophils/100 WBC Auto (Bld) 69.9 % Normal 36.0-75.0 [facility] Comment on above: Order Comment: Order Added by Discern Expert. Performed By: #### 2 096122, 8880234, 32785369, 6788876, 4979547, 80020354, 5941707, 0368185, 26846334, 39028640 ####[address] [place] [address] Neutrophils/Leukoc ytes Auto Pure number fraction (Bld) 3.6 E9/L Normal 2.0-7.5 [facility] Comment on above: Order Comment: Order Added by Discern Expert. Performed By: #### 2 638184, 3564553, 06260347, 5366010, 8791214, 03995772, 8649215, 4584133, 69462011, 32589125 ####[facility] [address] [place] [address] BMPon 10-05-2017 Creatinine mass conc 0.6 mg/dL Normal 0.5-1.3 [facility] Comment on above: Performed By: #### 2 530120, 4847652, 06298710, 4647708, 0976679, 83274595, 3143110, 2310515, 59112189, 23192822 ####[facility] [address] [place] [address] Urea nitrogen mass conc 6 mg/dL Normal 5-21 [facility] Comment on above: Performed By: #### 2 363877, 9288495, 91294450, 2751969, 9405141, 73253995, 0114672, 0390777, 97420122, 98547821 ####[facility] [address] [place] [address] Urea nitrogen/Creatinin e mass ratio 10 No Units Normal 10-20 [facility] Comment on above: Performed By: #### 2 069952, 5165148, 47783730, 0079928, 8586689, 23633902, 2481409, 5230609, 75868390, 15619315 ####[facility] [address] [place] [address] Anion gap 3 molar conc 8 mmol/L Normal 6-16 [facility] Comment on above: Performed By: #### 2 962475, 6068102, 18906846, 7114213, 3898792, 04635132, 9142993, 2696286, 14658622, 98495194 ####[facility] [address] [place] [address] Calcium mass conc 7.7 mg/dL Low 8.9-11.1 [facility] Comment on above: Performed By: #### 2 603799, 4440368, 93823202, 7946361, 9271518, 75160870, 5722190, 0545957, 32356078, 38239162 ####[facility] [place] [address] Chloride molar conc 107 mmol/L Normal 101-111 [facility] Comment on above: Performed By: #### 2 266867, 2980742, 82924498, 6109823, 6173616, 36038709, 3120595, 1322749, 92819450, 88907654 ####[facility] [address] [place] [address] CO2 molar conc 26 mmol/L Normal 21-31 [facility] Comment on above: Performed By: #### 2 961301, 4126960, 28825185, 6860938, 6379409, 18955463, 4836998, 2592437, 32173874, 78431504 ####[facility] [address] [place] [address] Glucose mass conc 78 mg/dL Normal 55-199 [facility] Comment on above: Result Comment: If t his glucose result represents a fasting glucose, interpretation should refer to the following reference range: 55-99 mg/dL Performed By: #### 2 985493, 2122408, 83429247, 5614712, 5009245, 88980700, 1737624, 1629038, 75838086, 69551578 ####[facility] [address] [place] [address] Potassium molar conc 3.6 mmol/L Normal 3.5-5.3 [facility] Comment on above: Performed By: #### 2 409428, 1519308, 45856062, 0803731, 0074165, 79321573, 1693113, 4970937, 92120447, 82843595 ####[facility] [address] [place] [address] Sodium molar conc 137 mmol/L Normal 135-145 [facility] Comment on above: Performed By: #### 2 404367, 7777130, 64655939, 1081631, 0924228, 61812796, 6587681, 9477923, 31333612, 77537864 ####[facility] [address] [place] [address] Creatinine mass conc 0.7 mg/dL Normal 0.5-1.3 [facility] Comment on above: Performed By: #### 2 825428, 1107480, 72368499, 3442109, 8785243, 86670004, 4911644, 9143262, 52647838, 16812666 ####[facility] [address] [place] [address] Urea nitrogen mass conc 7 mg/dL Normal 5-21 [facility] Comment on above: Performed By: #### 2 830045, 9776880, 39568805, 9299421, 9131066, 99805238, 8120540, 9695477, 83929422, 32316713 ####[address] [address] Urea nitrogen/Creatinin e mass ratio 10 No Units Normal 10-20 [facility] Comment on above: Performed By: #### 2 623822, 9533088, 61427501, 7725530, 4092541, 38905113, 9036162, 4891504, 75558034, 10662145 ####[address] [address] BNPon 10-05-2017 Natriuretic peptide B mass conc (Bld) 19 pg/mL Normal 5-80 [facility] Comment on above: Performed By: #### 2 310914, 9986792, 82982588, 2149710, 4587056, 87664385, 4940171, 9637259, 29405231, 32085983 ####[facility] [address] [place] [address] Natriuretic peptide B mass conc (Bld) Pass Normal [facility] Comment on above: Performed By: #### 2 128655, 9587308, 92128486, 8743063, 5824280, 53628845, 9417289, 2481919, 65897799, 30989891 ####[facility] [address] [place] [address] CBC w/ Auto Diffon 8 Erythrocyte distribution width Auto Ratio (RBC) 12.9 % Normal 10.9-14.2 [facility] Comment on above: Performed By: #### 2 847491, 8590919, 12923152, 5955713, 8599201, 38916567, 4184220, 7235559, 79522021, 94938376 ####[facility] [address] [place] [address] Hematocrit Auto Volume Fraction (Bld) 31.3 % Low 34.0-46.0 [facility] Comment on above: Result Comment: Resu lts Verified By Repeat Analysis Performed By: #### 2 221369, 2918644, 88511084, 2290963, 7682860, 39123949, 9989186, 8426285, 37983609, 23778076 ####[facility] [address] [place] [address] Hemoglobin mass conc (Bld) 11.2 g/dL Low 12.0-16.0 [facility] Comment on above: Result Comment: Resu lts Verified By Repeat Analysis Performed By: #### 2 064386, 5982567, 92099068, 6361501, 5735513, 31725660, 8189083, 8730088, 10825522, 52489560 ####[facility] [address] [place] [address] MCH Auto Entitic mass (RBC) 30.6 pg Normal 27.0-34.0 [facility] Comment on above: Performed By: #### 2 231249, 7067520, 19444264, 4029155, 6271091, 99783318, 8945817, 6960624, 34107941, 78243661 ####[facility] [address] [place] [address] MCHC Auto mass conc (RBC) 35.8 g/dL Normal 31.4-39.3 [facility] Comment on above: Performed By: #### 2 544285, 2334344, 42805966, 6786922, 5438235, 81103620, 1816898, 1253301, 73980548, 49471500 ####[facility] [address] [place] [address] MCV Auto Entitic volume (RBC) 85.6 fL Normal 80.0-100.0 [facility] Comment on above: Performed By: #### 2 069702, 5383230, 12277266, 9494551, 7766798, 04195640, 3067960, 3790954, 42019023, 28264383 ####[address] [place] [address] Platelet mean volume Auto Entitic volume (Bld) 8.9 fL Normal 6.4-10.8 [facility] Comment on above: Performed By: #### 2 677733, 6745567, 77997775, 2146232, 2819472, 54713797, 1504923, 4673771, 78783440, 97482116 ####[address] [address] Platelets Auto #/vol (Bld) 146.0 E9/L Low 150.0-500. 0 [facility] Comment on above: Performed By: #### 2 482636, 0389077, 50750810, 4390032, 5545541, 61890312, 2343433, 8185904, 16052595, 04804434 ####[facility] [address] [place] [address] RBC Auto #/vol (Bld) 3.7 E12/L Low 4.3-5.9 [facility] Comment on above: Performed By: #### 2 007694, 8482726, 58837728, 0137256, 2902315, 69006667, 1968913, 2977582, 24561838, 03155624 ####[address] [place] [address] WBC corrected for nucl RBC Auto #/vol (Bld) 3.3 E9/L Low 4.0-11.0 [facility] Comment on above: Performed By: #### 2 173608, 1542418, 20411974, 0630856, 3600230, 41823875, 8614769, 6562469, 99873991, 13348186 ####[facility] [address] [place] [address] Erythrocyte distribution width Auto Ratio (RBC) 13.1 % Normal 10.9-14.2 [facility] Comment on above: Performed By: #### 2 861165, 2694645, 84069831, 6223098, 4497293, 50300118, 0623843, 5584354, 36853212, 23055681 ####[address] [place] [address] Hematocrit Auto Volume Fraction (Bld) 37.3 % Normal 34.0-46.0 [facility] Comment on above: Performed By: #### 2 295936, 5213091, 85124727, 1391823, 0763811, 35116361, 9345807, 9658683, 98636085, 06730386 ####[address] [place] [address] Hemoglobin mass conc (Bld) 13.2 g/dL Normal 12.0-16.0 [facility] Comment on above: Performed By: #### 2 638535, 5140696, 73131082, 3972099, 8573947, 86941151, 9599027, 8159368, 39630882, 30769041 ####[facility] [address] [place] [address] MCH Auto Entitic mass (RBC) 30.3 pg Normal 27.0-34.0 [facility] Comment on above: Performed By: #### 2 742590, 4316393, 80308965, 2352357, 6512887, 39946892, 3143858, 8895270, 53309893, 95401273 ####[address] [place] [address] MCHC Auto mass conc (RBC) 35.5 g/dL Normal 31.4-39.3 [facility] Comment on above: Performed By: #### 2 126872, 3682748, 41566137, 7026773, 3050384, 21228799, 1458354, 5008036, 25467056, 21902344 ####[facility] [address] [place] [address] MCV Auto Entitic volume (RBC) 85.4 fL Normal 80.0-100.0 [facility] Comment on above: Performed By: #### 2 098225, 6556867, 16057062, 9165046, 8855009, 19956473, 5152760, 5881181, 70156361, 90498872 ####[address] [place] [address] Platelet mean volume Auto Entitic volume (Bld) 9.1 fL Normal 6.4-10.8 [facility] Comment on above: Performed By: #### 2 979626, 1427660, 82138601, 0977099, 7928744, 75385809, 4240738, 3550407, 39633279, 40835480 ####[address] [address] Platelets Auto #/vol (Bld) 183.0 E9/L Normal 150.0-500. 0 [facility] Comment on above: Performed By: #### 2 241498, 8441243, 37422089, 3544503, 2522048, 27369609, 2408351, 7905566, 66513407, 84963576 ####[facility] [address] [place] [address] RBC Auto #/vol (Bld) 4.4 E12/L Normal 4.3-5.9 [facility] Comment on above: Performed By: #### 2 619253, 9780978, 95710408, 1278464, 9778505, 58335618, 4669792, 7234942, 40806270, 55609851 ####[address] [place] [address] WBC corrected for nucl RBC Auto #/vol (Bld) 5.1 E9/L Normal 4.0-11.0 [facility] Comment on above: Performed By: #### 2 683649, 8122791, 97514207, 6131135, 9852748, 14991640, 4599465, 6363227, 68562910, 87607315 ####[facility] [address] [place] [address] CTA Abdomen and Pelvison CTA Abdomen and [...] Isovue 370Contrast amount in ml's: 100 Normal [facility] Cardiac 0 Hr.on 10-05-2017 CREATINE KINASE.MB:CCNC:PT: SER/PLAS:QN:EIA 2.2 ng/mL Normal 0.3-4.9 [facility] Comment on above: Performed By: #### 2 675635, 9454386, 46741002, 9629133, 0356479, 19814131, 5029402, 5988153, 06921718, 54071544 ####[facility] [address] [place] [address] Myoglobin mass conc 24 ng/mL Normal <=69 [facility] Comment on above: Performed By: #### 2 306166, 2201852, 71654461, 3767005, 5349993, 38072560, 3445388, 9204313, 99006201, 57047695 ####[facility] [address] [place] [address] Troponin I.cardiac mass conc ng/mL Normal <=0.03 [facility] Comment on above: Result Comment: New Troponin Assay 11/02/13ROC TX Cutoff value > or = 0.03 ng/mL in conjunction with clinical conditions of myocardial infarction.([email or web address]/guidelines) Performed By: #### 2 159588, 4579594, 47502021, 3277222, 4778113, 85862061, 3638951, 4940079, 72339849, 82937230 ####[facility] [address] [place] [address] CK enzyme act/vol 166 Int._Unit/L Normal 14-261 [facility] Comment on above: Performed By: #### 2 965948, 7048559, 27839068, 3289998, 0107733, 05445028, 9949640, 1695231, 79278797, 63351717 ####[facility] [address] [place] [address] Cardiac 3 Hr.on 10-05-2017 CREATINE KINASE.MB:CCNC:PT: SER/PLAS:QN:EIA 1.8 ng/mL Normal 0.3-4.9 [facility] Comment on above: Performed By: #### 2 160465, 3713515, 04660988, 8355181, 4960618, 31036421, 5793636, 9307074, 10789796, 67074851 ####[facility] [address] [place] [address] Myoglobin mass conc 17 ng/mL Normal <=69 [facility] Comment on above: Performed By: #### 2 958043, 2005446, 59586984, 5733569, 3786540, 41549463, 2891135, 6568234, 28166514, 44040314 ####[facility] [address] [place] [address] Troponin I.cardiac mass conc ng/mL Normal <=0.03 [facility] Comment on above: Result Comment: New Troponin Assay 11/02/13ROC TX Cutoff value > or = 0.03 ng/mL in conjunction with clinical conditions of myocardial infarction.([email or web address]/guidelines) Performed By: #### 2 791460, 2630616, 61827686, 2846965, 6826643, 95927436, 5486670, 0145298, 80422262, 04827988 ####[facility] [address] [place] [address] CK enzyme act/vol 145 Int._Unit/L Normal 14-261 [facility] Comment on above: Performed By: #### 2 300551, 9787135, 05827296, 9797828, 2726868, 96081080, 3236496, 1474228, 08193146, 65173662 ####[address] [address] Cardiac 6 Hr.on 10-05-2017 CREATINE KINASE.MB:CCNC:PT: SER/PLAS:QN:EIA 1.7 ng/mL Normal 0.3-4.9 [facility] Comment on above: Performed By: #### 2 298083, 1062674, 16139609, 8915653, 5090698, 13480370, 4480536, 3366337, 50501266, 41682959 ####[address] [place] [address] Troponin I.cardiac mass conc ng/mL Normal <=0.03 [facility] Comment on above: Result Comment: New Troponin Assay 11/02/13ROC TX Cutoff value > or = 0.03 ng/mL in conjunction with clinical conditions of myocardial infarction.([email or web address]/guidelines) Performed By: #### 2 565488, 2297567, 26362802, 2852632, 3169332, 55440994, 8513850, 3852448, 46904365, 21668373 ####[facility] [address] [place] [address] CK enzyme act/vol 129 Int._Unit/L Normal 14-261 [facility] Comment on above: Performed By: #### 2 606063, 3763487, 76188520, 1830780, 6616254, 32329845, 4715442, 0894919, 50267035, 77026750 ####[facility] [address] [place] [address] Cardiac 9 Hr.on 10-05-2017 CK enzyme act/vol 121 Int._Unit/L Normal 14-261 [facility] Comment on above: Performed By: #### 2 074307, 4835948, 95822924, 1202351, 5261200, 94944939, 8349507, 3222420, 43088881, 93649720 ####[facility] [address] [place] [address] Troponin I.cardiac mass conc ng/mL Normal <=0.03 [facility] Comment on above: Result Comment: New Troponin Assay 11/02/13ROC TX Cutoff value > or = 0.03 ng/mL in conjunction with clinical conditions of myocardial infarction.([email or web address]/guidelines) Performed By: #### 2 152340, 0224860, 72566218, 2176071, 2103649, 14624266, 4964055, 0339741, 85423581, 45488797 ####[facility] [address] [place] [address] Consultation Noteon 10-06-19 18 Consultation Note Patient: Trudy RIOS Age: 37 years Sex: Female : 1980 Associated Diagnoses: None Author: Aguilar Pizano MD Basic Information Time Seen: Date & Time 10/05/17 12:15:00. Admit information: Chest pain and nausea . Source of history: Medical record, Patient. History limitation: None. 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 Histories Past Medical History: ActivePulmonary embolism (29816677): Onset in 2008 at 28 years.CHF - Congestive heart failure (588138891)Cardiomyopathy (036057735) Family History: DementiaFatherAsthmaMotherSiste rHypertensionMotherFatherClotti ng disorderFatherDiabetes mellitus type 2MotherStrokeFatherMotherAcute myocardial infarctionMotherHyperlipidemiaM otherRenal failure syndromeMotherSleep apneaMotherDepressionMotherSist er Procedure history: Implantation of automatic cardioverter/defibrillator, total system (AICD) (11264409) in 2008 at 28 Years.Cardiac pacemaker (73876319) in 2008 at 28 Years.Cholecystectomy (36721206).Gastric bypass (8218906862).Abdominal hysterectomy (754842805). delivery ([id number]).Comments:10/05/2017 02:40 - Claudia Lu RN L3hand surgery.Comments:10/05/2017 02:42 - Claudia Lu RN L2 surgeries left handExcision of tonsil (168004664). Social History Social & Psychosocial WbiqadDfmskqr09/16/2018 Risk Assessment: Denies Alcohol Use10/04/2017 Use: Current Comment: denies - 10/04/2017 22:00 - Marge MAGUIRE, Isabel RSubstance Abuse10/04/2017 Risk Assessment: Denies Substance IrxekVenncls67/16/2018 Tobacco Use: 10 or more cigarettes (06/24/1510/04/2017 [...] 107 (OCT 05 06:00) H 151 (OCT 04:17)DBP 72 (OCT 05 11:44) 60 (OCT 04 22:10) H 96 (OCT 05 02:11)MAP 86 (OCT 05 11:44) 80 (OCT 04 22:10) 101 (OCT 04:17)SpO2 97 (OCT 05 11:44) 97 (OCT 04 22:10) 100 (OCT 04:) Measurements from flowsheet : Measurements 10/05/2017 06:35 EDT Weight Measured 91.5 kg 10/05/2017 02:26 EDT Height/Length Measured 174 cm Body Mass Index Measured 30.19 kg/m2 Weight Measured 91.4 kg 10/05/2017 02:11 EDT Height/Length Measured 174 cm [place] Body Weight Calculated 65.059 kg BSA Measured [...] Auto 65.5 % Lymph Auto 22.6 % Ferry Auto 8.6 % Eos Auto 2.2 % Basophil Auto 1.1 % Neutro Absolute 2.2 E9/L Lymph Absolute 0.8 E9/L LOW [place] Absolute 0.3 E9/L Eos Absolute 0.1 E9/L [...] Auto 69.9 % Lymph Auto 19.5 % Ferry Auto 7.8 % Eos Auto 1.9 % Basophil Auto 0.9 % Neutro Absolute 3.6 E9/L Lymph Absolute 1.0 E9/L Ferry Absolute 0.4 E9/L Eos Absolute 0.1 E9/L [...] past medical history significant for viral cardiomyopathy 2009 SP ICD, EF 40 %, sleeve gastrectomy 2013 in [place] for obesity, PE in 2008 and anxietyChest pain/nausea: will proceed with EGD to rule out esophagitis/PUD, agree with PPISplenomegaly, on CT, normal liver, please refer for hematology evaluationThank you for the consult, please do not hesitate to call with any questions Normal [facility] Comment on above: Result Comment: Elec tronically Signed By: Madeline Goodman MD, Aguilar\.br\Date and Time Signed: 10/05/17 16:33 EDT Consultation Note HOSPITAL REGULATIONS : ALL Positive Important Negative Findings Shall Be Recorded.Date of 10/05/2017Consultation:Dedrick Pollard D.O.Physician:Consulting Luna SuarezDPhysician:CARDIOLOGY CONSULTATION NOTECHIEF COMPLAINT: Weakness.HISTORY OF PRESENT ILLNESS: This is a very pleasant 37 year old woman whofollows with Cardiology, Dr. Sanchez, at [facility] with a history of severe left [...] and can follow up with Dr. Iniguez [facility].Luna SuarezDaekDictated: 10/05/2017 #[id number]: 10/05/2017 #[id number]: Yovanny Pollard D.O.Ubaldo Suarez M.D*Rock Dunbar M.D. [facility] Comment on above: Result Comment: Elec tronically Signed By: Daniela LEIJA, MERGED WITH [facility], Ubaldo V\.br\Date and Time Signed: 10/05/17 09:09 EDT Discharge Note-Nursingon Discharge Note-Nursing discharge instructions reciewed with patient, who verbalized understanding and denied any questions. two prescriptions given to patient, and off work excuse also given to patient. tele removed. 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 Normal [facility] ED Clinical Summaryon 2017 ED Clinical Summary [place] [address] ED Clinical SummaryPerson Information Name: Suzette RIOS/[facility]_Faisal Age: 37 Years : 1980 12:00 AM Sex: Female Language:Bahamian PCP: ROCK DUNBAR MD Marital Status: Phone: [phone] Visit Id: Visit Reason:Dizziness; Chest pain; CHEST PAIN Speciality: Acuity: 2 Enc Type: Observation Med Service: Medical Arrival:10/04/2017 9:16 PM Discharge: LOS: 000 04:59 Checkin:10/04/2017 9:16 PM Checkout: 10/05/2017 2:15 AM Dispo Type: Admitted as IP to this [facility] EVENTS:Event Name Event Status Request Date/Time Start [...] AM Patient Care Request 10/05/2017 1:54 AM ADDRESS:[address] [place] [address] [facility] [id number] [facility] DOC NOTES: MEDICAL INFORMATION: Prescriptions Given:PATIENT EDUCATION INFORMATION: Instructions: Follow up:DIAGNOSIS:1:Chest pain; 2:Cardiomyopathy Normal [facility] ED Note-Physicianon 10-06-19 ED Note-Physician Basic Information [...] dizziness, and nausea. 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 Pt's cardiac history is significant for viral myocarditis, CHF, cardiomyopathy, and a pacemaker/AICD inserted in 2008. She denies any history of similar symptoms, recent travel, illness, or sick contacts. Pt smokes 1/2 to 1 ppd cigarettes and marijuana 1 time per week. Reviewed by Dr. [place]view of Systems Constitutional: lightheaded, dizziness, nausea, tiredness [...] 85.4 fL (10/04/17 21:40:00) MCH: 30.3 pg (10/04/17:40:00) MCHC: 35.5 gm/dL (10/04/17 21:40:00) RDW: 13.1 % (10/04/17 21:40:00) Platelet: 183 E9/L (10/04/17 21:40:00) MPV: 9.1 fL (10/04/17 21:40:00) Neutro Auto: 69.9 % (10/04/17 21:40:00) Lymph Auto: 19.5 % (10/04/17 21:40:00) Ferry Auto: 7.8 % (10/04/17 21:40:00) Eos Auto: 1.9 % (10/04/17 21:40:00) Basophil Auto: 0.9 % (10/04/17 21:40:00) Neutro Absolute: 3.6 E9/L (10/04/17 21:40:00) Lymph Absolute: 1 E9/L (10/04/17 21:40:00) Ferry Absolute: 0.4 E9/L (10/04/17 21:40:00) Eos Absolute: 0.1 E9/L (10/04/17 21:40:00) Basophil Absolute: 0 E9/L (10/04/17 21:40:00) PT: 11.5 second(s) (10/04/17 21:40:00) INR: 1 (10/04/17 21:40:00) PTT: 36.4 second(s) (10/04/17 21:40:00) Glucose Lvl: 99 mg/dL (10/04/17 21:40:00) BUN: 7 mg/dL (10/04/17 21:40:00) Creatinine: 0.7 mg/dL (10/04/17:40:00) eGFR: >60 (10/04/17 21:40:00) eGFR AA: >60 (10/04/17 21:40:00) BUN/Creat Ratio: 10 (10/04/17:40:00) Sodium Lvl: 137 mmol/L (10/04/17 21:40:00) Potassium Lvl: 3.3 mmol/L Low (10/04/17:40:00) Chloride: 106 mmol/L (10/04/17:40:00) CO2: 24 mmol/L (10/04/17:40:00) AGAP: 10 mEq/L (10/04/17:40:00) Calcium Lvl: 8.5 mg/dL Low (10/04/17:40:00) Alk Phos: 62 Int._Unit/L (10/04/17:40:00) ALT: 9 Int._Unit/L (10/04/17:40:00) AST: 21 Int._Unit/L (10/04/17:40:00) Total Protein: 6.5 gm/dL (10/04/17 21:40:00) Albumin Lvl: 3.8 gm/dL (10/04/17 21:40:00) Globulin: 2.7 gm/dL (10/04/17:40:00) A/G Ratio: 1.4 (10/04/17:40:00) Bili Total: 0.5 mg/dL (10/04/17:40:00) Bili Direct: <0.1 (10/04/17:40:00) Bili Indirect: Unable to Calculate Abnormal (10/04/17:40:00) Lipase Lvl: 42 unit/L (10/04/17 21:40:00) Magnesium: 1.9 mg/dL (10/04/17 21:40:00) CK MB: 1.8 ng/mL (10/05/17 00:17:00) Myoglobin: 17 ng/mL (10/05/17 00:17:00) Troponin: <0.03 (10/05/17 00:17:00) Total CK: 145 Int._Unit/L (10/05/17 00:17:00) BNP: 19 pg/mL (10/04/17 21:40:00)Diagnostic Results Computed axial tomography scan angiography of [...] hours. Electronic ventricular pacemaker, 74 bpm. Normal [facility] Comment on above: Result Comment: Elec tronically Signed By: Rena Raman\.br\Electronically Co-Signed By: Jada Echols DO\.br\Date and Time Co-Signed: 10/05/17 01:27 EDT ED Patient Summaryon 018 ED Patient Summary (Inserted Image. Lolis ble to display) [place] [address] Patient Discharge Instructions Person Information Name: CARITO RIOS Age: 37 Years Date: 10/04/2017 9:16 PMDischarge Diagnosis: 1:Chest pain; 2:Cardiomyopathy Primary Care Physician: ROCK DUNBAR MD Provider InformationPrimary Provider: Jada Echols Livestock Rancher:None The exam and treatment you received in the Emergency Department were for an urgent problem and are not intended as complete care. It is important that you follow up with a doctor, nurse practitioner, or physician?s visitor information assistant for ongoing care. If your symptoms [...] opioids can be used to help relieve wgkyzrel-zb-xukptd pain and are often prescribed following a [...] be struggling with addiction, tell your health pediatric critical care nurse and ask for guidance or call [facility]?S National Helpline at 3-214-094-JCTW. y Source: US Department of Health and Human Services/Center for Disease Control & Prevention [facility] Medications Given:Medication Dose Route Sodium [...] Information:Comment: Pharmacy Information: Thank you for choosing [facility] Patient Education Materials: TOVA Dinh MACKENZIE , have received the following patient education materials/instructions and have verbalized understanding: Patient Education Materials: Follow-up Instructions: Prescriptions: Patient Signature Clinician/Nurse Signature Date 10/05/17 02:15:52 Normal [facility] Hep Func Panelon 10-05-2017 BILIRUBIN.NON-GLUC URONIDATED:MSCNC:P T:SER/PLAS:QN: UTC Abnormal 0.1-0.9 [facility] Comment on above: Result Comment: Resu lt verified by Discern Rule. Performed result UTC (Unable to Calculate) was sent as an Alpha code due the inability to calculate a valid numeric value. Performed By: #### 2 973700, 2634175, 31378909, 7642744, 5909927, 48065830, 4919179, 7347256, 94290232, 96900187 ####[facility] [address] [place] [address] Albumin mass conc 1.4 g/dL Normal 1.1-2.2 [facility] Comment on above: Performed By: #### 2 097188, 3588875, 71162959, 2037982, 7017039, 73479522, 7443198, 3995535, 19083825, 82713928 ####[facility] [address] [place] [address] Albumin mass conc 3.8 g/dL Normal 3.3-5.0 [facility] Comment on above: Performed By: #### 2 602786, 4330493, 95599596, 3904617, 3442093, 66903830, 5146665, 7544073, 67423941, 10421215 ####[facility] [address] [place] [address] ALP enzyme act/vol 62 Int._Unit/L Normal 21-98 [facility] Comment on above: Performed By: #### 2 626581, 9868199, 45650469, 3847434, 9775211, 38860672, 8487567, 3315125, 97445603, 39006409 ####[facility] [address] [place] [address] ALT No additional P-5'-P enzyme act/vol 9 Int._Unit/L Normal 6-46 [facility] Comment on above: Performed By: #### 2 578157, 0930149, 26863440, 2521782, 5163373, 33254177, 2518334, 5626864, 01172497, 11567919 ####[facility] [address] [place] [address] AST enzyme act/vol 21 Int._Unit/L Normal 5-43 [facility] Comment on above: Performed By: #### 2 809329, 5643990, 99528575, 0733219, 9932935, 37068168, 1163806, 1294933, 65133678, 95305730 ####[facility] [address] [place] [address] Bilirubin mass conc 0.5 mg/dL Normal 0.0-1.1 [facility] Comment on above: Performed By: #### 2 030955, 8731729, 00519566, 5142502, 4440416, 84508095, 2577279, 3213578, 64116695, 46352283 ####[facility] [address] [place] [address] Bilirubin.direct mass conc mg/dL Normal 0.1-0.4 [facility] Comment on above: Performed By: #### 2 587884, 4623080, 97039759, 8081063, 8992853, 94089867, 6419184, 0832811, 70563169, 37143221 ####[facility] [address] [place] [address] Globulin Calculated mass conc (S) 2.7 g/dL Normal 1.4-4.0 [facility] Comment on above: Performed By: #### 2 082866, 6304187, 96474860, 5002820, 5036343, 79557376, 6939734, 6796627, 67096271, 63269108 ####[facility] [address] [place] [address] Protein mass conc 6.5 g/dL Normal 6.0-7.8 [facility] Comment on above: Performed By: #### 2 370589, 3164196, 74143896, 2611680, 2299325, 86742760, 6923058, 4063896, 94847734, 00885318 ####[facility] [address] [place] [address] History and Physicalon 10-05 History and Physical [...] that was diagnosed in 2008 at the [facility] . Patient states she had a cardiac [...] on Cozaar. Patient 4 years ago at [facility] epigastric sleeve placed and after this had [...] 21:40:00) Lymph Auto: 19.5 % (10/04/17 21:40:00) Ferry Auto: 7.8 % (10/04/17 21:40:00) Eos Auto: 1.9 % (10/04/17 21:40:00) Basophil Auto: 0.9 % (10/04/17 21:40:00) Neutro Absolute: 3.6 E9/L (10/04/17 21:40:00) Lymph Absolute: 1 E9/L (10/04/17 21:40:00) Ferry Absolute: 0.4 E9/L (10/04/17 21:40:00) Eos Absolute: [...] 24 mmol/L (10/04/17 21:40:00) AGAP: 10 mEq/L (10/04/17 21:40:00) Calcium Lvl: 8.5 mg/dL Low (10/04/17 21:40:00) [...] pulmonary embolism) patient has been admitted to cycle cardiac enzymes, will observe on telemetry. If [...] apnea: Mother. Stroke: Mother and Father. Normal [facility] Comment on above: Result Comment: Elec tronically Signed By: Yovanny Pollard DO\.mando\Date and Time Signed: 10/05/17 04:28 EDT Inpatient Clinical Summaryon 10-05-2017 Inpatient Clinical Summary [place] [address] Clinical Summary Person Information:Name: CARITO RIOS Age: 37 Years : 1980 12:00 AM Sex: Female PCP: ROCK DUNBAR MD Marital Status: Phone: [phone] Race:White Ethnicity:Non- or Language:Bahamian Visit Id: Visit Reason:Dizziness; Chest pain; CHEST PAIN Speciality: Acuity: 2 Enc Type: Observation Med Service: Medical Arrival:10/04/2017 9:16 PM Discharge: Dispo Type: Admitted as IP to this Hosp Address:[address] [place] [address] [facility] [id number] Provider Notes: Diagnosis:1:Chest pain; 2:Dizzy spells; 3:Nausea; [...] Care Team Members:Attending Physician: Yovanny Pollard DO AConsulting Physician: Aguilar Pizano MDCovenant Medical Centerrahul Physician: Follow up:With: Address: When: Aguilar Madeline [address] [place] [address] Business (1) Within 7 to 10 days With: Address: When: follow up with your customer service professional at [facility] Within 1 week With: Address: When: ROCK DUNBAR [address] [place] [address] Business (1) Within 3 to 5 days Patient Education Information: pantoprazole 40 mg Oral EC Tab Normal [facility] Inpatient Patient Summaryon 10-05-2017 Inpatient Patient Summary [address] [address] Patient Discharge Instructions PERSON INFORMATION Name: CARITO RIOS Date of : 1980 12:00 AM Current Date: 10/05/17 17:00:22 PHYSICIANS Admitting Physician: Yovanny Pollard DO [facility] Care Physician: ROCK DUNBAR MDKendrick Comment: Discharge Diagnosis: 1:Chest pain; 2:Dizzy spells; 3:Nausea; 4:Cardiomyopathy; 5:History of pulmonary embolism; 6:Acute hypokalemia; 7:Tobacco abuse; 8:Splenomegaly; 9:H/O bariatric surgery; 10:Chronic anxietyCondition at Discharge: Improved CARITO RIOS has been [...] pending test results: NoneFollow up:With: Address: When: Cristosusi Goodman [address] [place] [address] [place] [address] Business (1) Within 7 to 10 days With: Address: When: follow up with your customer service professional at [facility] Within 1 week With: Address: When: ROCK DUNBAR [address] [place] [address] [place] [address] Business (1) Within 3 to 5 days [...] 1 Tabs By Mouth every day.Pharmacy Information: [facility] Navya comment: PATIENT EDUCATION INFORMATIONInstructions: Medication Leaflets:pantoprazole [...] may report side effects to FDA at 4-537-SGW-0685.What other drugs will affect pantoprazole?Tell your doctor about all your other medicines. Some may interact with pantoprazole, especially:?? digoxin;? methotrexate; or? a diuretic or 'water pill.'This list is not complete. Other drugs may affect pantoprazole, including prescription and bnut-lcp-hlgvvku medicines, vitamins, and herbal products. Not all possible drug interactions are listed here.Where can I get more information?Your pharmacist can provide more information about pantoprazole.Remember, keep this and all other medicines out of the reach of children, never share your medicines with others, and use this medication only for the indication prescribed.Every effort has been made to ensure that the information provided by [employer] ('[employer]') is accurate, up-to-date, and complete, but no guarantee is made to that effect. Drug information contained herein may be time sensitive. [employer] information has been compiled for use by healthcare practitioners and consumers in the [place] and therefore [employer] does not warrant that uses outside of the [place] are appropriate, unless specifically indicated otherwise. Notes drug information does not endorse drugs, diagnose patients or recommend therapy. Notes drug information is an informational resource designed [...] effective or appropriate for any given patient. [employer] does not assume any responsibility for any aspect of healthcare administered with the aid of information [facility] provides. The information contained herein is not intended to cover all possible uses, directions, precautions, warnings, drug interactions, allergic reactions, or adverse effects. If you have questions about the drugs you are taking, check with your doctor, nurse or pharmacist. Copyright 4818-2225 [employer] Version: 18.01. Revision Date: 08/05/2017. Thank you for choosing [facility] Normal [facility] Interdisciplinary Note - Gustavo e Manageron 10-05-2017 Interdisciplinary Note - Recovery Room Nurse Rounding with Eugenia Garvey. White board updated, no family present. Pt awake, alert, laying in bed talking with the doctor. Pt feeling sore and tired. 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 Pt discussing how she felt and why she came here. Doctor discussed lab's. Pt understands plan is await [facility], GI recommendations, await test results, possible d/c today if ok. PCP is Bettina. Pt would not like [facility] to update family, she is talking with them. Normal [facility] Lipid Panelon 10-05-2017 Cholesterol in HDL mass conc 44 mg/dL Invalid Interpretation Code [facility] Comment on above: Result Comment: HDL > or equal to 60 mg/dL: Low cardiovascular riskHDL < 40 mg/dL : High cardiovascular risk Performed By: #### 2 304772, 6600453, 30192239, 8404733, 4417036, 07570035, 1341355, 9591698, 77606453, 78279464 ####[facility] [place] [address] Cholesterol in LDL mass conc 42 mg/dL Normal <=129 [facility] Comment on above: Performed By: #### 2 276947, 9317389, 91651036, 9966565, 1263948, 38271629, 1653518, 7018921, 23376458, 34068202 ####[facility] [address] [place] [address] Cholesterol in VLDL mass conc 10 mg/dL Normal 7-40 [facility] Comment on above: Performed By: #### 2 456459, 8323215, 55904890, 4213723, 8585194, 57414150, 7385533, 3084569, 05512996, 39441256 ####[facility] [address] [place] [address] Cholesterol mass conc 100 mg/dL Low 120-200 [facility] Comment on above: Performed By: #### 2 934283, 6970992, 99475306, 8800517, 6871730, 91807305, 1757838, 1487362, 32131611, 37125273 ####[facility] [address] [place] [address] Triglyceride mass conc 51 mg/dL Normal <=149 [facility] Comment on above: Performed By: #### 2 016123, 3269013, 32578668, 3375526, 8665451, 61334240, 3085956, 5670370, 27408764, 97256033 ####[facility] [address] [place] [address] Magnesiumon 10-05-2017 Magnesium mass conc 1.9 mg/dL Normal 1.3-2.4 [facility] Comment on above: Performed By: #### 2 350099, 3416935, 19885761, 1861402, 0833706, 56798529, 0450367, 2195059, 59224818, 50073979 ####[facility] [address] [place] [address] Main OR PACU I Recordon 09-19 Main OR PACU I Record PACU Phase I Document Type FT Summary Primary Physician: Aguilar Pizano MD Finalized Date/Time: 10/05/17 16:01:16 Pt. Name: TOVA CARITOANGELO Nolan/Sex: 1980 Female Med Rec #: [id number] Physician: Jada Echols DO Financial #: [id number] Pt. Type: O Room/Bed: [place] [address] Admit/Disch: 10/04/17 21:16:00 - Institution: Case Times [...] Walker RN 10/05/17 16:01:14 Finalized By: Shabana Wlaker RN Document Signatures Signed By: Shabana Walker RN 10/05/17 16:01 Normal [facility] Main OR Preoperative Recordo n 10-05-2017 Main OR Preoperative Record Holding Area Document Type FT Summary Primary Physician: Aguilar Pizano MD Finalized Date/Time: 10/05/17 14:27:28 Pt. Name: CARITO RIOS./Sex: 1980 Female Med Rec #: [id number] Physician: Jada Echols DO Financial #: [id number] Pt. Type: O Room/Bed: [place] [address] Admit/Disch: 10/04/17 21:16:00 - Institution: Case Times Holding FT Pre-Care Text: Verifies consent for planned procedure, identifies individual values and wishes concerning care, includes family members in perioperative teaching Secures patient's records' belongings, and valuables, maintains patient's dignity and privacy, and maintains patient confidentiality Entry 1 In Holding 10/05/17 14:06:00 Outcomes Met? Yes Last Modified By: Yanna MAGUIRE, BSN, M.Ed., Cheryl ARCINIEGA 10/05/17 14:14:00 Post-Care Text: The [...] reason Last Modified By: KIARA Raines RN, M.Jagdish., Cheryl ARCINIEGA 10/05/17 14:17:51 Finalized By: KIARA Raines RN, M.Jagdish., Cheryl ARCINIEGA Document Signatures Signed By: KIARA Raines RN, M.Ed., Cheryl ARCINIEGA 10/05/17 14:17 KIARA Raines RN, M.Ed., Cheryl ARCINIEGA 10/05/17 14:17 KIARA Raines RN, M.EdAkil, Cheryl ARCINIEGA 10/05/17 14:27 Normal [facility] PT & PTTon 10-05-2017 aPTT Coag time (Bld) 36.4 second(s) Normal 25.1-36.5 [facility] Comment on above: Result Comment: Hepa rin therapeutic range (represented by Anti-Factor Xa activity of 0.2 - 0.4 U/mL) corresponds to PTT of 53.9 - 87.4 sec. Performed By: #### 2 294942, 2463410, 10961356, 5579062, 3697276, 76565136, 2395310, 9224363, 55413127, 10123575 ####[facility] [address] [place] [address] INR Coag RelTime (PPP) 1.0 {INR} Invalid Interpretation Code [facility] Comment on above: Result Comment: INR results are specifically intended to assess patients stabilized on long-term Anticoagulation therapy suggested INR?s ?Less Intensive Anticoagulation? 2.0 ? 3.0Conventional Range 3.0 ? 4.5 Performed By: #### 2 179852, 7852957, 96633181, 1840023, 4923844, 68260486, 2602503, 6922535, 87329169, 90695606 ####[facility] [address] [place] [address] Prothrombin time (PT) Coag time (PPP) 11.5 second(s) Normal 10.2-12.9 [facility] Comment on above: Performed By: #### 2 716413, 1803042, 83551608, 2125108, 8314030, 94228821, 7152093, 4465285, 87302714, 06798591 ####[facility] [address] [place] [address] Progress Note-Physicianon Protein mass conc Patient: Trudy RIOS Age: 37 years Sex: Female : 1980 Associated Diagnoses: None Author: Robi Corbin Jr, DO Preoperative Information Anesthesia history: Patient history: No [...] Problem list: All ProblemsCardiomyopathy / SNOMED CT 958859848 / ConfirmedCHF - Congestive heart failure / SNOMED CT 412149777 / ConfirmedPulmonary embolism / SNOMED CT 17878278 / ConfirmedSmoker / SNOMED CT 292867165 / ConfirmedAdded secondary to documentation in Social History. Histories Past Medical History: ActivePulmonary embolism (75491639): Onset in 2008 at 28 years.CHF - Congestive heart failure (923837888)Cardiomyopathy (279441862) Family History: DementiaFatherAsthmaMotherSiste rHypertensionMotherFatherClotti ng disorderFatherDiabetes mellitus type 2MotherStrokeFatherMotherAcute myocardial infarctionMotherHyperlipidemiaM otherRenal failure syndromeMotherSleep apneaMotherDepressionMotherSist er Procedure history: Implantation of automatic cardioverter/defibrillator, total system (AICD) (63137509) in 2008 at 28 Years.Cardiac pacemaker (30134368) in 2009 at 28 Years.Cholecystectomy (41305809).Gastric bypass (8116772740).Abdominal hysterectomy (197461395). delivery (8041180336).Comments:10/05/2017 02:40 - Claudia Lu RN L3hand surgery.Comments:10/05/2017 02:42 - Claudia Lu RN L2 surgeries left handExcision of tonsil (672477282). Social History Social & Psychosocial JsswvoHthxxqy63/16/2018 Risk Assessment: Denies Alcohol Use10/04/2017 Use: Current Comment: denies - 10/04/2017 22:00 - Isabel Bird RN RSubstance Abuse10/04/2017 Risk Assessment: Denies Substance CddrnQmxkevd19/16/2018 Tobacco Use: 10 or more cigarettes (06/24/1510/04/2017 [...] 10/05/2017 02:11 EDT Height/Length Measured 174 cm [place] Body Weight Calculated 65.059 kg BSA Measured [...] results Radiology results ECG interpretation Condition Plan [place] [employer] (ASA) physical status classification: Class III. Anesthetic Preoperative Plan Anesthesia: Monitored anesthesia care. Anesthetic plan, risks, benefits, and alternatives discussed with the patient and/or family. Risks discussed: nausea, vomiting, headache, sore throat, dental injury, serious complications. Patient verbalized understanding. Communication: face to face with (patient 5 minutes, Pt. educated on the importance of smoking cessation.). [facility] Comment on above: Result Comment: Elec tronically [...] Problem list: All ProblemsCardiomyopathy / SNOMED CT 520495314 / ConfirmedCHF - Congestive heart failure / SNOMED CT 432283407 / ConfirmedPulmonary embolism / SNOMED CT 23906630 / ConfirmedSmoker / SNOMED CT 973293427 / ConfirmedAdded secondary to documentation in Social [...] 15:25) 96 (OCT 05 14:26) 100 (OCT 04 21:17) Documented vital signs Pain assessment: Pain Assessment [...] vomiting. Plan Transfer/ Discharge: Condition stable. Normal [facility] Comment on above: Result Comment: Elec tronically Signed By: Shaquille Masters DO, Robi Lindsey\.mando\Date and Time Signed: 10/05/17 15:33 EDT Sed Rate Automatedon 018 ESR Velocity (Bld) 13 mm/h Normal 0-34 [facility] Comment on above: Performed By: #### 2 635017, 9367648, 59855579, 2845970, 9799104, 05275874, 5890435, 3518638, 53695155, 05340046 ####[facility] [address] [place] [address] TSH With T4fr Reflexon 10-05 Thyrotropin Qn 3.23 mcIU/mL Normal 0.34-5.60 [facility] Comment on above: Performed By: #### 2 967363, 0651955, 09483162, 0512305, 8116168, 13006268, 7549522, 1679139, 03955368, 87013818 ####[facility] [address] [place] [address] eGFRon 10-05-2017 GFR/1.73 sq M predicted among blacks MDRD vol rate/area (S/P/Bld) mL/min/{1.73_m2} Normal >=59 [facility] Comment on above: Order Comment: Order added by Discern Expert. Result Comment: eGFR is race adjusted. AA=. Performed By: #### 2 794681, 9333413, 90373975, 6977709, 8870085, 57118855, 8447068, 8934477, 26251910, 54771255 ####[facility] [address] [place] [address] GFR/1.73 sq M predicted among non-blacks MDRD vol rate/area (S/P/Bld) mL/min/{1.73_m2} Normal >=59 [facility] [facility] Comment on above: Order Comment: Order added by Discern Expert. Result Comment: Workplace Relations Adviser nya kidney disease could be indicated at eGFR's of less than 60 mL/min/1.73m2. Kidney failure is indicated at less than 15 mL/min/1.73m2. Performed By: #### 2 [id number], 8697146, 17445310, 9582862, 8704477, 17003810, 6731882, 7768943, 82497092, 36606571 ####[facility] [address] [place] [address] GFR/1.73 sq M predicted among blacks MDRD vol rate/area (S/P/Bld) mL/min/{1.73_m2} Normal >=59 [facility] Comment on above: Order Comment: Order added by Discern Expert. Result Comment: eGFR is race adjusted. AA=. Performed By: #### 2 736986, 3112292, 12764094, 3057852, 4041487, 15803858, 7432072, 0592281, 14070931, 64144790 ####[facility] [address] [place] [address] GFR/1.73 sq M predicted among non-blacks MDRD vol rate/area (S/P/Bld) mL/min/{1.73_m2} Normal >=59 [facility] Comment on above: Order Comment: Order added by Discern Expert. Result Comment: Workplace Relations Adviser nya kidney disease could be indicated at eGFR's of less than 60 mL/min/1.73m2. Kidney failure is indicated at less than 15 mL/min/1.73m2. Performed By: #### 2 856714, 3437881, 61558026, 5574068, 1552648, 10881660, 2590624, 7064628, 96748634, 47217712 ####[facility] [address] [place] [address] BMPon 10-04-2017 Anion gap 3 molar conc 10 mmol/L Normal 12-04 [facility] Comment on above: Performed By: #### 2 475099, 0583461, 40789027, 2096359, 1125346, 06321747, 6799279, 2716377, 04297215, 96534430 ####[facility] [address] [place] [address] Calcium mass conc 8.5 mg/dL Low 8.9-11.1 [facility] Comment on above: Performed By: #### 2 918602, 4994727, 92581470, 6256229, 3460693, 33102136, 8117510, 7546594, 84510143, 35573290 ####[facility] [address] [place] [address] Chloride molar conc 106 mmol/L Normal 101-111 [facility] Comment on above: Performed By: #### 2 867462, 5137577, 25529040, 1821467, 5040870, 94381663, 1434540, 4440101, 47455723, 82906938 ####[facility] [address] [place] [address] CO2 molar conc 24 mmol/L Normal 21-31 [facility] Comment on above: Performed By: #### 2 267445, 8883970, 05494195, 9587216, 3281879, 75249589, 6107057, 5513566, 80941455, 12604409 ####[facility] [address] [place] [address] Glucose mass conc 99 mg/dL Normal 55-199 [facility] Comment on above: Result Comment: If t his glucose result represents a fasting glucose, interpretation should refer to the following reference range: 55-99 mg/dL Performed By: #### 2 308962, 4715964, 35498592, 6107883, 0787712, 16414008, 4628620, 8154389, 61715243, 50767087 ####[facility] [address] [place] [address] Potassium molar conc 3.3 mmol/L Low 3.5-5.3 [facility] Comment on above: Performed By: #### 2 647941, 9351288, 74079282, 0596500, 4190512, 20542730, 3942015, 8636525, 22780216, 47420583 ####[facility] [place] [address] Sodium molar conc 137 mmol/L Normal 135-145 [facility] Comment on above: Performed By: #### 2 256952, 0617627, 53835026, 5885550, 9148216, 98627529, 7708836, 5058794, 99981586, 06395602 ####[facility] [address] [place] [address] Lipase Levelon 10-04-2017 Lipase enzyme act/vol 42 unit/L Normal 13-58 [facility] Comment on above: Performed By: #### 2 812745, 9922903, 97578956, 0079322, 7241921, 28155598, 3919597, 7661548, 85923273, 51724470 ####[facility] [address] [place] [address] Vital Signs Date Time Vital Sign Value Performing Clinician Facility 01-01-2023 16:11-0400 SaO2% (BldA) [Mass fraction] 100 % DARLING MARTINEZ [facility] Comment on above: Order Comment: Specimen Type: ARTERIAL B LOOD SPECIMENOrdering Facility: [facility] Address: [address] [place] [address] Performed By: #### A LLBG ####[facility] LABCL[facility] [id number] [place] [address] [place] 12-11-2022 15:17040 Body height 175.3 cm Neto Demarco MD Work Phone: [facility] 12-11-2022 15:17040 Body weight 89.81 kg Neto Demarco MD Work Phone: [facility] 12-11-2022 15:17040 Diastolic blood pressure 70 mm[Hg] Neto Obrien Work Phone: [facility] 12-11-2022 15:17040 Heart rate 60 /min Neto Demarco MD Work Phone: [facility] 12-11-2022 15:170400 Systolic blood pressure 111 mm[Hg] Neto Demarco MD Work Phone: [facility] Encounters Encounter Date Encounter Type Care Provider Facility Start: 02-13-2025 ambulatory [facility] Start: 02-13-2025 Encounter for preprocedural cardiovascular examination [facility] Start: 11-20-2024 ambulatory [facility] Start: 08-15-2024 ambulatory [facility] Start: 03-08-2024 ambulatory [facility] Start: 09-08-2023 End: 09-08-2023 ambulatory ROCK DUNBAR Not Available Start: 01-01-2023 End: 01-02-2023 ambulatory DARLING MARTINEZ Facility:[facility] Start: 12-31-2022 ambulatory Darling holland MD Work Phone: Cardiology Comment on above: Patient Education (E PS-ICD Leade Extract / Reimplant) Start: 12-30-2022 End: 12-30-2022 ambulatory DARLING MARTINEZ Facility:[facility] Start: 12-30-2022 Admission to same da y surgery center DARLING MARTINEZ [facility] Start: 12-30-2022 End: 12-30-2022 ambulatory DARLING MARTINEZ Facility:[facility] Start: 12-30-2022 End: 12-30-2022 Admission to same day surgery center Anesthesia Clearance Work Phone: [facility] Work Phone: Start: 12-30-2022 End: 12-30-2022 Patient encounter procedure Anesthesia Clearance Work Phone: Cardiothoracic Comment on above: Encounter for preope rative anesthesiology assessment for cardiac surgery (Primary Dx) Start: 12-30-2022 End: 12-31-2022 ambulatory ROCK DUNBAR Facility:[facility] Start: 12-24-2022 Telephone encounter Neto resendiz MD Work Phone: Cardiology Comment on above: Received Outside Med [facility] Records Start: 12-23-2022 Telephone encounter Neto resendiz MD Work Phone: Cardiology Comment on above: Reschedule (OR 79 ca se) MONITOR (ALARM) Start: 12-14-2022 Telephone encounter Neto resendiz MD Work Phone: Cardiology Comment on above: Schedule Surgery (EP S- Lead Extraction and Reimplantation ) Start: 12-11-2022 End: 12-11-2022 ambulatory NETO DEMARCO Facility:[facility] Start: 12-11-2022 End: 12-11-2022 ambulatory DARLING MARTINEZ Facility:[facility] Start: 12-11-2022 Follow-up encounter Neto resendiz MD Work Phone: [facility] Start: 12-11-2022 End: 12-11-2022 Patient encounter procedure Neto Demarco MD Work Phone: [facility] Department Comment on above: ICD (implantable car dioverter-defibrillator) in place (Primary Dx); Cardiac resynchronization therapy defibrillator (TEACHERS' ASSISTANT-D) in place; Chronic systolic heart failure (HCC); Non-ischemic cardiomyopathy (HCC); Failure of implantable cardioverter-defibrillator (ICD) lead, initial encounter Start: 11-24-2022 Telephone encounter Neto resendiz MD Work Phone: Cardiology Comment on above: Received Outside Med [facility] Records (Referral & MR) Start: 09-24-2022 End: 09-24-[address] AMADOR ALICEA Facility:[facility] Start: 09-18-2022 Encounter for other preprocedural examination JASS JUNE [facility] Start: 09-16-2022 End: 09-17-2022 ambulatory JASS JUNE Facility:[facility] Start: 09-16-2022 End: 09-17-2022 Encounter for other preprocedural examination JASS JUNE Facility:[facility] Start: 08-31-2022 End: 09-01-2022 ambulatory EVELYN CALDWELL Facility:[facility] Start: 08-28-2022 End: 08-28-[address] EUFEMIA Barnard Facility:[facility] Start: 08-05-2022 End: 08-05-[address] FAZAL PARKER Facility:[facility] Start: 02-17-2022 Encounter for genera l adult medical examination without abnormal findings DR ROCK DUNBAR [facility] Start: 02-16-2022 End: 02-17-[address] ROCK DUNBAR Facility:[facility] Start: 02-16-2022 End: 02-17-2022 Encounter for general adult medical examination without abnormal findings DR ROCK DUNBAR Facility:[facility] Start: 01-25-[address] ROCK DUNBAR Facil ity:[facility] Start: 12-13-2021 End: 12-13-[address] ABY FULLER Facility:[facility] Start: 11-18-2021 End: 11-19-2021 ambulatory SALVADOR ALEJO . Facility:[facility] Start: 11-10-2021 End: 11-10-[address] AMADOR ALICEA Facility:[facility] Start: 10-23-2021 End: 10-24-2021 ambulatory ANOOP SRIVASTAVA Facility:[facility] Start: 10-21-2021 End: 10-22-[address] EUFEMIA Barnard Facility:[facility] Start: 10-20-2021 End: 10-20-[address] FAZAL PARKER Facility: Start: 04-29-2018 End: 04-30-2018 Patient encounter procedure PROVIDER UNKNOWN Facility:[facility] Start: 03-31-2018 End: 04-01-2018 Patient encounter procedure KADE SOFIA Facility:[facility] Start: 02-06-2018 End: 02-08-2018 Patient encounter ROCK~[id number] UNKNOWN BETTINA Facility:[facility] Start: 01-06-2018 End: 01-06-2018 Emergency department patient visit ROCK~[id number] UNKNOWN BETTINA Facility:[facility] Start: 11-16-2017 End: 11-17-2017 Patient encounter Aguilar Goodman Facility:[facility] Start: 10-04-2017 End: 10-05-2017 Patient encounter Makayla Sage Facility:[facility] Procedures Date Procedure Procedure Detail Performing Clinician Start: 12-30-2022 Antibody screen DARLING MARTINEZ Comment on above: Order Comment: Speci men Type: BLOOD SPECIMENOrdering Facility: [facility] Address: [address] [place] [id number] Performed By: #### T [id number] ####[facility] BLO[facility] BANKCLIA [id number] [place] [id number] [place] Start: 12-11-2022 ICD CLINIC CHECK Neto Demarco MD Work Phone: Plan of Treatment Date Care Activity Detail Author Start: 02-19-2023 Influenza [facility] Start: 12-29-2022 End: 02-28-2023 Basic metabolic 2000 panel - Serum or Plasma BASIC METABOLIC PNL Lab Routine Failure of implantable cardioverter-defibrillator (ICD) lead, initial encounter Expected: 12/29/2022, Expires: 02/28/2023 [facility] Work Phone: Comment on above: Expected: 12/29/2022 , Expires: 02/28/2023 Start: 12-29-2022 End: 02-28-2023 CBC panel - Blood by Automated count CBC Lab Routine Failure of implantable cardioverter-defibrillator (ICD) lead, initial encounter Expected: 12/29/2022, Expires: 02/28/2023 [facility] Work Phone: Comment on above: Expected: 12/29/2022 , Expires: 02/28/2023 Start: 12-29-2022 End: 02-28-2023 CONFIRM BLOOD TYPE CONFIRM BLOOD TYPE Blood Bank Routine Failure of implantable cardioverter-defibrillator (ICD) lead, initial encounter Expected: 12/29/2022, Expires: 02/28/2023 [facility] Work Phone: Comment on above: Expected: 12/29/2022 , Expires: 02/28/2023 Start: 12-29-2022 Radiologic exam ches t 2 views XR CHEST 2V FRONTAL/LAT Radiology Routine Failure of implantable cardioverter-defibrillator (ICD) lead, initial encounter Expected: 12/29/2022 [facility] Work Phone: Comment on above: Expected: 12/29/2022 Start: 12-29-2022 End: 02-28-2023 TYPE AND SCREEN,30 DAY TYPE AND SCREEN,30 DAY Blood Bank Routine Failure of implantable cardioverter-defibrillator (ICD) lead, initial encounter Expected: 12/29/2022, Expires: 02/28/2023 [facility] Work Phone: Comment on above: Expected: 12/29/2022 , Expires: 02/28/2023 Start: 2022 Mammography MAMMOGRAM [facility] Start: 06-21-2022 DEPRESSION ASSESSMENT DEPRESSION ASS ESSMENT [facility] Start: 2012 HPV TESTING HPV TESTING [facility] Start: 08-27-2003 PAP TESTING PAP TESTING [facility] Start: 2001 Urine microalbumin profile DTAP,TDAP,TD (1 - Tdap) [facility] Start: 2000 HEPATITIS C SCREENING HEPATITIS C SC REENING [facility] Start: 2000 HIV SCREENING HIV SCREENING [facility] Start: 1988 PNEUMOCOCCAL (1 - PCV) PNEUMOCOCCAL (1 - PCV) [facility] Start: 02-26-1983 COVID-19 VACCINE (#1) COVID-19 VACCI NE (#1) [facility] Start: 1982 HEPATITIS B (1 of 3 - 3-dose series) HEPATITIS B (1 of 3 - 3-dose series) [facility] LIFEVEST LIFEVEST ECG Rou xavier ICD (implantable cardioverter-defibrillator ) in place Cardiac resynchronization therapy defibrillator (TEACHERS' ASSISTANT-D) in place Chronic systolic heart failure (HCC) Non-ischemic cardiomyopathy (HCC) Failure of implantable cardioverter-defibrillator (ICD) lead, initial encounter Ordered: 12/11/2022 [facility] Work Phone: Comment on above: Ordered: 12/11/2022 End: 01-10-2024 Radiologic exam chest 2 views XR CHEST 2V FRONTAL/LAT Radiology Routine ICD (implantable cardioverter-defibrillator ) in place Cardiac resynchronization therapy defibrillator (TEACHERS' ASSISTANT-D) in place Chronic systolic heart failure (HCC) Non-ischemic cardiomyopathy (HCC) Failure of implantable cardioverter-defibrillator (ICD) lead, initial encounter 1 Occurrences starting 12/11/2022 until 01/10/2024 [facility] Work Phone: Comment on above: 1 Occurrences starti ng 12/11/2022 until 01/10/2024 WEARABLE CARDIAC DEFIBRILLATOR (LIFEVEST / ASSURE) WEARABLE CARDIAC DEFIBRILLATOR (LIFEVEST / ASSURE) ECG Routine ICD (implantable cardioverter-defibrillator ) in place Cardiac resynchronization therapy defibrillator (TEACHERS' ASSISTANT-D) in place Chronic systolic heart failure (HCC) Non-ischemic cardiomyopathy (HCC) Failure of implantable cardioverter-defibrillator (ICD) lead, initial encounter Ordered: 12/11/2022 [facility] Work Phone: Comment on above: Ordered: 12/11/2022 [facility] V[facility] Payers Date Payer Category Payer Medicaid [id number] 1982 Unknown [id number] 2.16.8 [id number] 1982 Unknown [id number] 2.16.8 [id number] 1982 Unknown [id number] 2.16.84 0.1.080142.3.579.2.593 1982 Unknown [id number] 2.16.84 0.1.638038.3.579.2.593 1982 Unknown [id number] 2.16.84 0.1.303886.3.579.2.593 1982 Unknown [id number] 2.16.84 0.1.791115.3.579.2.593 1982 Unknown [id number] 2.16.84 0.1.491903.3.579.2.593 1982 Unknown [id number] 2.16.84 0.1.791965.3.579.2.593 1982 Unknown [id number] 2.16.84 0.1.283049.3.579.2.593 1982 Unknown [id number] 2.16.84 0.1.608486.3.579.2.593 1982 Unknown [id number] 2.16.84 0.1.410252.3.579.2.593 1982 Unknown [id number] 2.16.84 0.1.007232.3.579.2.593 1982 Unknown [id number] 2.16.84 0.1.437311.3.579.2.593 1982 Unknown [id number] 2.16.84 0.1.552359.3.579.2.593 1982 Unknown [id number] 2.16.84 0.1.304972.3.579.2.593 1957 Self-pay [id number] 1957 Unknown [id number] Social History Date Type Detail Facility Tobacco smoking stat [facility] Tobacco smoking consumption unknown [facility] Start: 1980 Sex Assigned At Not on file [facility] Start: 12-11-2022 Tobacco smoking stat [facility] Smokes tobacco daily [facility] History of tobacco use Cigarette Smoker [facility] Start: 12-11-2022 End: 12-30-2022 Cigarettes smoked current (pack per day) - Reported 1 [facility] Start: 12-11-2022 Tobacco use and exposure Smoke less tobacco non-user [facility] Start: 12-11-2022 Alcohol intake Ex-drinker (finding) [facility] Start: 1980 Sex Assigned At Female [facility] Start: 12-11-2022 End: 12-30-2022 Tobacco use panel [facility] National Score (1-10 0), lower number is lower risk 79 [facility] Start: 12-15-2022 Gender identity Identifies as female gender (finding) [facility] Start: 12-15-2022 Sexual orientation Choose not to dis close [facility] Clinical Notes 08-05-2022 to 01-02-2023 Laurel Flores RN - 12/31/2022 4:20 PM Ki Vicente MD - 12/30/2022 12:40 PM EDTTelephone Encounter - Sharon Tanner RN - 12/25/2022 9:07 AM EDTPatient Instructions Note Date & Type Note Facility 01-02-2023 Note HNO ID: [id number] Author: Daphney Perez RN Service: Nursing Author Type: Registered Nurse Type: Nursing Progress Note Filed: 01/02/2023 1:16 PM Note Text: Patient discharged. IV taken out and patient off tele. [facility] 01-02-2023 Note HNO ID: [id number] Author: Chandan Banuelos MD Service: Cardiovascular Medicine Author Type: Fellow Type: Progress Notes Filed: 01/02/2023 10:39 AM Note Text: [facility] ELECTROPHYSIOLOGY PROGRESS NOTE Carito Rios [id number] PRIMARY SERVICE: INTERVAL HISTORY - POD#1 from [...] female with history of NICM, HF, s/p TEACHERS' ASSISTANT-D (2008) with epicardial LV lead, s/p multiple generator changes (4) most recent generator change 09/21/2022, and depression. She presented to local ED 11/22/22 for device alarm and was found to have RV lead noise with oversensing. [place] to be likely due to ICD coil fracture. Now admitted for transvenous lead extraction of the RV lead. POD #1 RA/ICD lead extraction and re-implantation of new RA/ICD leads - Discharge today. - Groin suture removed Chandan Banuelos MD Electrophysiology Fellow PGY-VII P: [phone] January 02, 2023 8:22 AM [facility] 01-01-2023 Note HNO ID: [id number] Author: Aaron Mcknight MD Service: Cardiovascular Medicine Author Type: Fellow Type: Progress Notes Filed: 01/01/2023 7:15 PM Note Text: BRIEF PROCEDURE NOTE: Procedure: Transvenous lead extraction and implantation of two new leads (RA + RV) Date: January 01, 2023, 7:12 PM Primary Surgeon: Darling Martinez MD Animal Ride Manager: Aaorn Mcknight MD Outcome: Successful Pocket: Left pectoral [...] right groin. Full report to follow in [facility] (Under Chart Review -> Cardiac ) Aaron Mcknight MD [facility] 01-01-2023 Note HNO ID: [id number] Author: Aby Romano APRN.CIRCULAR KNIFE CUTTER MACHINE Service: ? Author Type: Nurse Court Transcriber Type: Anesthesia Procedure Notes Filed: 01/01/2023 2:41 PM Note Text: ANESTHESIOLOGY PROCEDURE NOTE Airway General Information Procedure Start Time/Medication Administration: 01/01/2023 1:29 PM Patient location during procedure: OR Timeout Performed Pre-procedure: timeout performed Consent Obtained: Yes Patient identity confirmed: arm band Staffing CIRCULAR KNIFE CUTTER MACHINE: Aby Romano APRN.CIRCULAR KNIFE CUTTER MACHINE Performed by: CIRCULAR KNIFE CUTTER MACHINE Indications and Patient Condition Indications for airway [...] attempts at approach: 1 SIGNATURE: Aby Romano APRN.CRNA PATIENT NAME: Carito Rios DATE: January 01, 2023 TIME: 2:40 PM CSN: [id number] [facility] 12-31-2022 Note HNO ID: [id number] Author: Laurel Flores RN Service: ? Author [...] discussed with Physician, nurse practitioner or Physician visitor information assistant upon discharge Instructions for transmitting EKG to Monitoring Center 3 month follow up instructions Contact number for information and questions Patient Evaluation: Verbalizes understanding Follow Up Plan: Follow up as directed by MD. Supplemental Material Given: Written Material Patient education regarding radiation exposure. Instructed By Laurel Flores RN. In Department of CARDIOLOGY. [facility] 12-31-2022 History of Presen t illness Narrative [...] discussed with Physician, nurse practitioner or Physician visitor information assistant upon discharge Instructions for transmitting EKG to Monitoring Center 3 month follow up instructions Contact number for information and questions Patient Evaluation: Verbalizes understanding Follow Up Plan: Follow up as directed by MD. Supplemental Material Given: Written Material Patient education regarding radiation exposure. Instructed By Laurel Flores RN. In Department of CARDIOLOGY. documented in this encounter [facility] 12-31-2022 Note Education (EPSMN) CARITO RIOS ([id number]) 1980 F Date Time Provider Department 12/31/22 DARLING MARTINEZ EPSMN Reason for Visit: Patient Education [91] [...] Encounter Status:Closed by LAUREL CHAVEZ on 12/31/22 [facility] 12-30-2022 Note HNO ID: [id number] Author: Ki Mancera MD Service: ? Author Type: Fellow Type: Progress Notes Filed: 12/30/2022 12:48 PM Note Text: Cardiothoracic Anesthesiology Preoperative Assessment Service Date: 12/30/2022 Service Time: 11:47 AM Primary Care Physician: Rock Dunbar Subjective Patient Entered Data: Scheduled procedure: Lead extraction Surgeon: Darling Martinez Scheduled date: 01/01/2023 HPI: Patient is a 42yoF w/ a hx of NICM and resultant HFrEF s/p TEACHERS' ASSISTANT-D in 2008 c/b by recent RV lead [...] Laterality Date PAST SURGICAL HISTORY OF 2008 TEACHERS' ASSISTANT-D PAST SURGICAL HISTORY OF multiple device surgeries [...] 2:12 PM I (more content not included)... [facility] 12-30-2022 Note HNO ID: [id number] Author: Shelly Gilmore RN Service: Nursing Author [...] DATE: December 30, 2022 TIME: 11:15 AM [facility] 12-30-2022 Note HNO ID: [id number] Author: Kathya Roque RT(R) Service: Radiology Author Type: Technologist Type: Progress [...] RT Janice(R) December 30, 2022 11:46 AM [facility] 12-30-2022 Note HNO ID: [id number] Author: RT Joshua(R) Service: Radiology Author Type: [...] PERIPHERAL IV DATA: Not applicable SIGNED BY: RT Joshua(R) December 30, 2022 9:57 AM [facility] 12-30-2022 History of Presen t illness Narrative Cardiothoracic Anesthesiology Preoperative Assessment Service Date: 12/30/2022 Service Time: 11:47 AM Primary Care Physician: Rock Dunbar Subjective Patient Entered Data: Scheduled procedure: Lead extraction Surgeon: Darling Martinez Scheduled date: 01/01/2023 HPI: Patient is a 42yoF w/ a hx of NICM and resultant HFrEF s/p TEACHERS' ASSISTANT-D in 2008 c/b by recent RV lead [...] Laterality Date PAST SURGICAL HISTORY OF 2008 TEACHERS' ASSISTANT-D PAST SURGICAL HISTORY OF multiple device surgeries [...] ABNORMAL ECG Confirmed by MD GREWAL TAMANNA ([id number]) on 12/14/2022 4:37:01 PM Assessment No problem-specific [...] and consent discussed: yes. Patient / Responsible Constitution Party agrees to proceed: yes Patient / Surrogate agrees to blood products: Yes Instructions Given to Patient: Instructions located in the after visit summary. Patient given verbal and written preop instructions and voices comprehension and compliance. Signature: Ki Mancera MD Patient Name: Carito Rios Date: December 30, 2022 Time: 11:47 AM Pager/Contact #: documented in this encounter [facility] 12-25-[address] Demarco reviewed tracings from [facility]. Mostly noise/artifact. No changes prior to procedure next week. Left detailed message on patient VM. Sharon Tanner RN Outside medical records scanned into Bringg drive. Patient scheduled for procedure with Dr. Darling Martinez on January 01, 2023. documented in this encounter [facility] 12-23-2022 Miscellaneous Notes Aaron with [employer] is returning a call from [phone]. For Phoebe. Marianna Wong December 23, 2022 Patient Contact Number: [phone] (home) [phone] (cell) Patient last seen within the last year: Yes Reason for Call: Device Issue: PLEASE ROUTE TO DEVICE CLINIC POOL Patient called in and states the monitor has been alarming (at work almost 25 times during the day). She contacted the monitor company and they advised that the machine is fine so the alarm is due to her heart. Please contact viviana. Thank you, Mary Muniz, Admin documented in this encounter [facility] 12-23-[address] Demarco, patient needs to have OR 79 appointment rescheduled to a sooner date with one of his colleagues due to getting multiple alarms per day from her [employer]. The new date of 01-01-[address] Martinez was offered & accepted by patient. Needs all OR 79 appointments as per protocol. documented in this encounter [facility] 12-14-2022 Miscellaneous Notes Patient offered [...] OUTSIDE RECORDS: none enter date uploaded to [employer] & scanned AMBULATORY TESTING: OPD consult w/EP [...] extraction and replacement. documented in this encounter [facility] 12-11-2022 Miscellaneous Notes Addended by: NETO DEMARCO on: 12/11/2022 04:57 PM Modules accepted: Orders documented in this encounter [facility] 12-11-2022 Note HNO ID: [id number] Author: Neto Demarco MD Service: ? Author Type: Physician Type: Progress Notes Filed: 12/11/2022 4:12 PM Note Text: [facility] [place] [facility] Department of Cardiovascular Medicine SECTION OF CARDIAC PACING and ELECTROPHYSIOLOGY OUTPATIENT VISIT DATE December 11, 2022 OUTPATIENT VISIT TYPE NEW PRIMARY CARE PHYSICIAN: Rock Dunbar MD [place], [place] [employer] Cle[employer] Machine Operator Jass June MD [place], [place] CHIEF COMPLAINT: BiV ICD, ICD lead failure HISTORY OF PRESENT ILLNESS: Carito Rios is a 42 y/o female who presents for evaluation for lead malfunction. She has a history of NICM (iman LVEF reportedly 15% 2008), HF, s/p TEACHERS' ASSISTANT-D (2008), s/p multiple generator changes (4) most [...] to have RV lead noise with oversensing. [place] to be likely due to ICD coil [...] MEDICAL HISTORY Diagnosis Date HF (heart failure) ([facility]) NICM (nonischemic cardiomyopathy) (FORM[facility]) PAST SURGICAL HISTORY Procedure Laterality Date PAST SURGICAL HISTORY OF 2008 TEACHERS' ASSISTANT-D PAST SURGICAL HISTORY OF multiple device surgeries [...] Skin: Skin co (more content not included)... [facility] 12-11-2022 Instructions Neto Demarco MD - 12/11/2022 4:10 PM EDT Images from the original note were not included. [facility] [place] [facility] Department of Cardiovascular Medicine SECTION OF CARDIAC PACING and ELECTROPHYSIOLOGY OUTPATIENT VISIT DATE December 11, 2022 OUTPATIENT VISIT TYPE NEW PRIMARY CARE PHYSICIAN: Rock Dunbar MD [place], [place] [employer] Machine Operator Jass June MD [place], [place] CHIEF COMPLAINT: BiV ICD, ICD lead failure HISTORY OF PRESENT ILLNESS: Carito Rios is a 42 y/o female who presents for evaluation for lead malfunction. She has a history of NICM (iman LVEF reportedly 15% 2008), HF, s/p TEACHERS' ASSISTANT-D (2008), s/p multiple generator changes (4) most recent generator change 09/21/2022, and depression. She had recovery of her EF to 50-55% in 2015. Last Echo 08/31/22 EF=45-50%. She reports she was on amiodarone in the past for an irregular heart beat. She has not been on for the last 2 years. She presented to local ED 11/22/22 for device alarm and was found to have RV lead noise with oversensing. [place] to be likely due to ICD coil [...] Laterality Date PAST SURGICAL HISTORY OF 2008 TEACHERS' ASSISTANT-D PAST SURGICAL HISTORY OF multiple device surgeries [...] extremities Neuro: Gait normal. CARDIOVASCULAR MEDICINE TESTING: TEACHERS' ASSISTANT-D EVALUATION 12/11/2022 ICD THERPAIES FOUND PROGRAMMED OFF. [...] attached to a new Pugh/ [facility] [place] TEACHERS' ASSISTANT-D generator and the leads tug tested. Pocket [...] 79 extraction and replacement of ICD lead (Duraalyssa). Set up for WCD until able to schedule for procedure. I personally interviewed, confirmed and edited the above information as obtained by others. [place] [id number] December 11, 2022 3:35 PM documented in this encounter [facility] 12-11-2022 History of Presen t illness Narrative Images from the original note were not included. [facility] [place] [facility] Department of Cardiovascular Medicine SECTION OF CARDIAC PACING and ELECTROPHYSIOLOGY OUTPATIENT VISIT DATE December 11, 2022 OUTPATIENT VISIT TYPE NEW PRIMARY CARE PHYSICIAN: Rock Dunbar MD [place], [place] [employer] Machine Operator Jass June MD [place], [place] CHIEF COMPLAINT: BiV ICD, ICD lead failure HISTORY OF PRESENT ILLNESS: Carito Rios is a 42 y/o female who presents for evaluation for lead malfunction. She has a history of NICM (iman LVEF reportedly 15% 2008), HF, s/p TEACHERS' ASSISTANT-D (2008), s/p multiple generator changes () most recent generator change 09/21/2022, and depression. [...] to have RV lead noise with oversensing. [place] to be likely due to ICD coil [...] Laterality Date PAST SURGICAL HISTORY OF 2008 TEACHERS' ASSISTANT-D PAST SURGICAL HISTORY OF multiple device surgeries [...] extremities Neuro: Gait normal. CARDIOVASCULAR MEDICINE TESTING: TEACHERS' ASSISTANT-D EVALUATION 12/11/2022 ICD THERPAIES FOUND PROGRAMMED OFF. [...] SYMPTOMS: The incision and pocket are tender (2-3), healed and without signs of erosion. Patient [...] attached to a new Pugh/ [facility] [place] TEACHERS' ASSISTANT-D generator and the leads tug tested. Pocket [...] by others. Documentation by Neto Demarco MD December 11, 2022 3:35 PM documented in this encounter [facility] 11-24-2022 Miscellaneous Notes Documentation scanned into EP outside records database. documented in this encounter [facility] 08-05-2022 Note PROCEDURE: XR FOOT [...] AMADOR ALICEA Date: 2022-08-05 08:07 [facility] Evaluation note Diagnosis ICD (implantable cardioverter-defibrillator) in place- Primary Automatic implantable cardiac defibrillator in situ Cardiac resynchronization therapy defibrillator (TEACHERS' ASSISTANT-D) in place Chronic systolic heart failure (HCC) Chronic systolic heart failure Non-ischemic cardiomyopathy (HCC) Other primary cardiomyopathies Failure of implantable cardioverter-defibrillator (ICD) lead, initial encounter [facility] Failure of implantable cardioverter-defibrillator (ICD) lead, initial encounter- Primary Chronic systolic CHF (congestive heart failure) (HCC) Chronic systolic heart failure NICM (nonischemic cardiomyopathy) (HCC) Other primary cardiomyopathies Other mechanical complication of cardiac electrode, initial encounter [facility] Diagnosis Encounter for preoperative anesthesiology assessment for cardiac surgery- Primary Chronic systolic CHF (congestive heart failure) (HCC) Chronic systolic heart failure NICM (nonischemic cardiomyopathy) (HCC) Other primary cardiomyopathies Other mechanical complication of cardiac electrode, initial encounter documented in this encounter [facility] Summary Purpose Family History No [...] section and content) DATE CREATED AUTHOR 02/11/2018 [facility] DATE CREATED AUTHOR AUTHOR'S ORGANIZ ATION 05/29/2018 [facility] DATE CREATED AUTHOR AUTHOR'S ORGANIZ ATION 09/28/2022 [facility] DATE CREATED AUTHOR AUTHOR'S ORGANIZ ATION 01/23/2023 [facility] DATE CREATED AUTHOR AUTHOR'S ORGANIZ ATION 09/09/2023 [facility] dical [facility] DATE CREATED AUTHOR AUTHOR'S ORGANIZ ATION 02/15/2025 [facility] Source Comments (unrecognize d section and content) In the event this informatio n is protected by the Federal Confidentiality of Alcohol and Drug Abuse Patient Records regulations: The Federal rules restrict any use of the information to criminally investigate or prosecute any alcohol or drug abuse patient.[facility] the event this information is protected by the Federal Confidentiality of Alcohol and Drug Abuse Patient Records regulations: The Federal rules restrict any use of the information to criminally investigate or prosecute any alcohol or drug abuse patient.[facility] the event this information is protected by the Federal Confidentiality of Alcohol and Drug Abuse Patient Records regulations: The Federal rules restrict any use of the information to criminally investigate or prosecute any alcohol or drug abuse patient.[facility] the event this information is protected by the Federal Confidentiality of Alcohol and Drug Abuse Patient Records regulations: The Federal rules restrict any use of the information to criminally investigate or prosecute any alcohol or drug abuse patient.[facility] the event this information is protected by the Federal Confidentiality of Alcohol and Drug Abuse Patient Records regulations: The Federal rules restrict any use of the information to criminally investigate or prosecute any alcohol or drug abuse patient.[facility] the event this information is protected by the Federal Confidentiality of Alcohol and Drug Abuse Patient Records regulations: The Federal rules restrict any use of the information to criminally investigate or prosecute any alcohol or drug abuse patient.[facility] the event this information is protected by the Federal Confidentiality of Alcohol and Drug Abuse Patient Records regulations: The Federal rules restrict any use of the information to criminally investigate or prosecute any alcohol or drug abuse patient.[facility] the event this information is protected by the Federal Confidentiality of Alcohol and Drug Abuse Patient Records regulations: The Federal rules restrict any use of the information to criminally investigate or prosecute any alcohol or drug abuse patient.[facility] the event this information is protected by the Federal Confidentiality of Alcohol and Drug Abuse Patient Records regulations: The Federal rules restrict any use of the information to criminally investigate or prosecute any alcohol or drug abuse patient.[facility] Reason for Visit (unrecogniz ed [...] Care Teams (unrecognized sec tion and content) Copy Cutter Relationship Specialty Start Date End Date Ubaldo Suarez [address] [address] Primary Staff Physician Cardiology 09/06/18 Copy Cutter Relationship Specialty Start Date End Date Ubaldo Suarez [address] [address] Primary Staff Physician Cardiology 09/06/18 Neto Demarco MD [address] [place] [address] Primary Staff Physician Cardiology 12/11/22 Copy Cutter Relationship Specialty Start Date End Date Ubaldo Suarez [address] [address] Primary Staff Physician Cardiology 09/06/18 Neto Demarco MD [address] [place] [address] Primary Staff Physician Cardiology 12/11/22 Copy Cutter Relationship Specialty Start Date End Date Ubaldo Suarez [address] [address] Primary Staff Physician Cardiology 09/06/18 Neto Demarco MD [address] [place] [address] Primary Staff Physician Cardiology 12/11/22 Copy Cutter Relationship Specialty Start Date End Date Ubaldo Suarez [address] [place] [address] Primary Staff Physician Cardiology 09/06/18 Neto Demarco MD [address] [place] [address] Primary Staff Physician Cardiology 12/11/22 Copy Cutter Relationship Specialty Start Date End Date [facility] [address] [place] [address] Primary Staff Physician Cardiology 09/06/18 Neto Demarco MD [address] [place], [place] [id number] Primary Staff Physician Cardiology 12/11/22 Copy Cutter Relationship Specialty Start Date End Date Rock Dunbar [address] [place] [phone] PCP - General Family Medicine 12/30/22 [facility] [address] [place] [address] Primary Staff Physician Cardiology 09/06/18 Neto Demarco MD [address] [place] [address] Primary Staff Physician Cardiology 12/11/22 Copy Cutter Relationship Specialty Start Date End Date Rock Dunbar [address] [place] [phone] PCP - General Family Medicine 12/30/22 Ubaldo Suarez Ivone [address] [place] [address] Primary Staff Physician Cardiology 09/06/18 Neto Demarco MD [address] [place] [address] Primary Staff Physician Cardiology 12/11/22 FOR RECORDS [...] BE BASED ON THE PRIMARY CLINICAL RECORDS. [employer] [facility]. provides no warranty or guarantee of the accuracy or completeness of information in this document.
--- NOTE | 2025-02-17 09:03 | XR_ITS ---
The [address] [address] Patient Name: SERGIO BERNARDO MRN: [id number] date: 1980 Sex: F Assigned Patient Location: ER Current Patient Location: ER Accession/Order Number: [id number] Exam Date: 02/17/2025 09:18 Report Date: 02/17/2025 09:49 At the request of: ILIA SMITH MD Procedure: XR chest 1V XR chest 1V 02/17/2025 9:23 AM SIGNS AND SYMPTOMS: ^cp PROTOCOL: Frontal radiograph of the chest COMPARISON: 05/08/2023 FINDINGS: The trachea is midline. There is a dual lead pacer device on the left. The heart and mediastinal structures are within normal limits. The lung parenchyma is clear. The bony thorax is intact. XR/XR chest 1V IMPRESSION: No acute cardiopulmonary pathology. Impression dictated by: Farhat Pang M.D. 02/17/2025 9:49 AM Dictation Location: [place] [address] Electronically authenticated by: [id number] Y Date: 02/17/2025 09:49
--- NOTE | 2025-02-17 09:03 | ECG_ITS ---
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 Measurements Intervals [place] Rate: 75 P: 45 DC: 132 QRS: 182 QRSD: 138 T: -11 QT: 424 QTc: 453 Interpretive Statements NORMAL SINUS RHYTHM 36175 Electronic ventricular pacemaker 9120 atypical ECG Compared to ECG 05/08/2023 09:16:30 No significant changes Electronically Signed On 02-21-2025 13:29:41 EDT by KATY ELLIS M.D.
[2025-02-17 09:30] LABS: Hematocrit 40.3 % (36.0-48.0); Hemoglobin 14.3 g/dL (12.0-16.0); Immature Granulocytes Abs Auto 0.03 10^3/uL (0.00-0.03); Immature Granulocytes Pct Auto 0.7 % (0.0-0.5); Lymphocytes Absolute Auto 0.7 10^3/uL (1.2-3.8); Mean Corpuscular HGB Conc 35.5 g/dL (29.9-35.2); Mean Corpuscular Hemoglobin 30.8 pg (26.7-34.0); Mean Corpuscular Volume 86.9 fL (81.0-99.0); Platelet Count 171 10^3/uL (150-450); Red Blood Count 4.64 10^6/uL (4.20-5.40); White Blood Count 4.5 10^3/uL (4.0-11.0)
[2025-02-17] MEDS: ACETAMINOPHEN 325 MG TABLET 650 MG PO (09:39)
[2025-02-17] MEDS: FAMOTIDINE/PF 20 MG/2 ML VIAL IV (09:40)
[2025-02-17 09:49] LABS: Alanine Aminotransferase 23 U/L (14-59); Albumin Globulin Ratio 1.4; Albumin Level 4.1 g/dL (3.4-5.0); Alkaline Phosphatase 62 U/L (46-116); Aspartate Amino Transferase 20 U/L (15-37); Blood Urea Nitrogen 6.0 mg/dL (7.0-18.0); Calcium 8.4 mg/dL (8.5-10.1); Carbon Dioxide 24.0 mmol/L (21.0-32.0); Estimated GFR (African America >60 (>=60 mL/min/1.73m^2); Estimated GFR (Non-African Ame >60 (>=60 mL/min/1.73m^2); Globulin 2.9 g/dL; Glucose 92 mg/dL (74-106); Total Protein 7.0 g/dL (6.4-8.2)
[2025-02-17 09:51] LABS: INR 1.01; Prothrombin Time 10.7 sec (9.0-11.6)
[2025-02-17 09:56] LABS: Anion Gap 13.8; Chloride 104 mmol/L (98-107); Potassium 3.8 mmol/L (3.5-5.1); Sodium 138 mmol/L (136-145)
--- NOTE | 2025-02-17 10:06 | ED.CHESTPAI1 ---
HPI - Chest Pain General Chief Complaint: Chest Pain Stated Complaint: CHEST PAIN Time Seen by Provider: 02/17/25 09:02 Source: patient Mode of arrival: walk-in Limitations: no limitations History of Present Illness HPI narrative: 44-year-old female with history of cardiomyopathy status post ICD placement and pacemaker. The patient is coming to the ER with a chest pain that started today morning although she mentions for the last 2 days she has been having generalized body ache since last night in addition to bilateral ear pain. 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 The patient is coming to the ER with a chest heaviness that mostly associate symptom with taking a deep breath. No nausea no vomiting no diarrhea Bilateral ear pain and congestion The patient have no cough and denies any diarrhea or any headache or fever but she have generalized body ache Related Data Home Medications ?Medication ?Instructions ?Recorded ?Confirmed alprazolam 1 mg tablet 1 mg PO .q6 PRN anxiety 11/22/22 02/17/25 amiodarone 100 mg tablet 100 mg PO DAILY 11/22/22 02/17/25 amitriptyline 25 mg tablet 25 mg PO BEDTIME 11/22/22 02/17/25 aspirin 81 mg tablet,delayed 81 mg PO DAILY 11/22/22 02/17/25 release (Adult Aspirin Regimen) atorvastatin 80 mg tablet 80 mg PO DAILY 11/22/22 02/17/25 carvedilol 6.25 mg tablet 6.25 mg PO Q12H 11/22/22 02/17/25 citalopram 20 mg tablet 20 mg PO DAILY 11/22/22 02/17/25 fluticasone propionate 50 1 spray intranasal Q12H 11/22/22 02/17/25 mcg/actuation nasal spray,suspension furosemide 20 mg tablet 20 mg PO DAILY 11/22/22 02/17/25 gabapentin 300 mg capsule 300 mg PO Q8H 11/22/22 02/17/25 losartan 25 mg tablet 25 mg PO DAILY 11/22/22 02/17/25 olanzapine 5 mg tablet 5 mg PO DAILY 11/22/22 02/17/25 pantoprazole 40 mg tablet,delayed 40 mg PO DAILY 11/22/22 02/17/25 release spironolactone 25 mg tablet 12.5 mg PO DAILY 11/22/22 02/17/25 topiramate 50 mg tablet 50 mg PO Q12H 11/22/22 02/17/25 mhcbdjzyou-xvicspltuhkns-xbobdfub 1 tab PO Q6H PRN pain 11/24/22 02/17/25 50 mg-325 mg-40 mg tablet Previous Rx's ?Medication ?Instructions ?Recorded ibuprofen 800 mg tablet 800 mg PO Q8H PRN pain #20 tabs 02/07/23 methocarbamol 750 mg tablet 750 mg PO Q6H PRN pain #30 tabs 07/15/24 nabumetone 750 mg tablet 750 mg PO BID PRN pain #14 tabs 07/15/24 doxycycline hyclate 100 mg capsule 100 mg PO BID 7 days #14 caps 02/17/25 Allergies Allergy/AdvReac Type Severity Reaction Status Date / Time amoxicillin Allergy Mild Rash Verified 02/17/25 08:57 cefoxitin Allergy Mild Rash Verified 02/17/25 08:57 Sulfa (Sulfonamide Allergy Mild Rash Verified 02/17/25 08:57 Antibiotics) vancomycin Allergy Unknown Hives Verified 02/17/25 08:57 MADI Inhibitors AdvReac Mild Cough Verified 02/17/25 08:57 lisinopril AdvReac Mild Cough Verified 02/17/25 08:57 sulfamethoxazole (From AdvReac Mild rash Verified 02/17/25 08:57 Sulfamethoxazole-Trimethoprim) trimethoprim (From AdvReac Mild rash Verified 02/17/25 08:57 Sulfamethoxazole-Trimethoprim) Review of Systems ROS Status of ROS 10 or more systems reviewed and unremarkable except as noted in history and below PFS PFS Social History Smoking status: Current every day smoker Little interest or pleasure in doing things: not at all Feeling down, depressed, or hopeless: not at all Exam Narrative Exam Narrative: Nurses notes and vital signs reviewed and patient is not hypoxic. General: Well-appearing and in no apparent distress. Skin: Warm, dry, no pallor noted. No rash. Head: Normocephalic, atraumatic. Neck: Supple, non-tender. Eye: Pupils are equal, round and EOMI. No scleral icterus. Ears, Nose, Mouth, and Throat: the patient have bilateral tympanic membrane erythema noted with some serous fluid behind the bilaterally, oral mucosa is moist, no posterior oropharynx erythema, uvula is mid-line Cardiovascular: Regular Rate and Rhythm without murmur, gallop or rub. Respiratory: No accessory muscle use or respiratory distress. Lungs are clear to auscultation, no wheezing, rales or rhonchi Chest Wall: no tenderness Back: No midline thoracic or lumbar vertebral tenderness. No CVA tenderness Musculoskeletal: normal ROM, no calf or popliteal tenderness, no lower extremity edema/swelling GI: Abdomen is soft, non-distended. Normal bowel sounds. No masses appreciated. No tenderness to palpation. No rebound, guarding, or rigidity noted. Neurological: A&O x4. No cranial nerve dysfunction observed. No truncal ataxia. Moves all extremities. Sensation intact. Psychiatric: Cooperative and interactive. Normal mood and affect. Constitutional Vital Signs, click to edit/add: Last Vital Signs Temp 97.9 F 02/17/25 08:57 Pulse 60 02/17/25 10:00 Resp 17 02/17/25 10:00 BP 124/68 02/17/25 10:00 Pulse Ox 98 02/17/25 10:00 O2 Del Method Room Air 02/17/25 08:57 Course Vital Signs Vital signs: Vital Signs Temperature 97.9 F 02/17/25 08:57 Pulse Rate 81 02/17/25 08:57 Respiratory Rate 18 02/17/25 08:57 Blood Pressure 139/90 02/17/25 08:57 Pulse Oximetry 97 02/17/25 08:57 Oxygen Delivery Method Room Air 02/17/25 08:57 Temperature 97.9 F 02/17/25 08:57 Pulse Rate 60 02/17/25 10:00 Respiratory Rate 17 02/17/25 10:00 Blood Pressure 124/68 02/17/25 10:00 Pulse Oximetry 98 02/17/25 10:00 Oxygen Delivery Method Room Air 02/17/25 08:57 MDM - Chest Pain MDM Narrative Medical decision making narrative: The patient EKG showing paced rhythm with a heart rate of [address] elevation or depression Chest x-ray showed no acute pathology The patient CBC and chemistry showed no acute pathology with a negative troponin and her pain started more than 5 hours ago The patient presentation is mostly secondary to atypical chest pain specially that it is associated with generalized body ache and bilateral ear infection mostly otitis media Patient pain mostly pleuritic in nature she was treated in the ER with Tylenol after which she was feeling better Although she does still have some pain but she also needed a work excuse to rest at home The patient is to follow up with primary care physician in next 2-3 days or to return to the emergency department should any of the signs or symptoms worsen or new symptoms develop. The patient agrees with the following Diagnosis and Treatment plan and the patient will be discharged home. Lab Data Labs: Lab Results 02/17/25 Range/Units 09:00 WBC 4.5 (4.0-11.0) 10^3/uL RBC 4.64 (4.20-5.40) 10^6/uL Hgb 14.3 (12.0-16.0) g/dL Hct 40.3 (36.0-48.0) % MCV 86.9 (81.0-99.0) fL MCH 30.8 (26.7-34.0) pg MCHC 35.5 H (29.9-35.2) g/dL RDW 12.6 (11.0-15.0) % Plt Count 171 (150-450) 10^3/uL MPV 11.1 (9.5-13.5) fL Neut % (Auto) 72.6 (43.0-75.0) % Lymph % (Auto) 16.4 L (20.5-60.0) % Nye % (Auto) 8.5 (1.7-12.0) % Eos % (Auto) 1.1 (0.9-7.0) % Baso % (Auto) 0.7 (0.2-2.0) % Neut # (Auto) 3.2 (1.4-6.5) 10^3/uL Lymph # (Auto) 0.7 L (1.2-3.8) 10^3/uL Nye # (Auto) 0.4 (0.3-0.8) 10^3/uL Eos # (Auto) 0.1 (0.0-0.7) 10^3/uL Baso # (Auto) 0.0 (0.0-0.1) 10^3/uL Abs Immat Gran (auto) 0.03 (0.00-0.03) 10^3/uL Imm/Tot Granulo (auto) 0.7 H (0.0-0.5) % PT 10.7 (9.0-11.6) sec INR 1.01 Sodium 138 (136-145) mmol/L Potassium 3.8 (3.5-5.1) mmol/L Chloride 104 (98-107) mmol/L Carbon Dioxide 24.0 (21.0-32.0) mmol/L Anion Gap 13.8 BUN 6.0 L (7.0-18.0) mg/dL Creatinine 0.73 (0.55-1.02) mg/dL Est GFR ( Amer) >60 (>=60 mL/min/1.73m^2) Est GFR (Non-Af Amer) >60 (>=60 mL/min/1.73m^2) BUN/Creatinine Ratio 8.2 Glucose 92 (74-106) mg/dL Calcium 8.4 L (8.5-10.1) mg/dL Total Bilirubin 0.6 (0.2-1.0) mg/dL AST 20 (15-37) U/L ALT 23 (14-59) U/L Alkaline Phosphatase 62 (46-116) U/L Troponin I High Sens 12.1 (4.0-51.3) pg/mL Total Protein 7.0 (6.4-8.2) g/dL Albumin 4.1 (3.4-5.0) g/dL Globulin 2.9 g/dL Albumin/Globulin Ratio 1.4 Serum HCG, Qual Negative (NEGATIVE) Discharge Plan Discharge Chief Complaint: Chest Pain Clinical Impression: Atypical chest pain, Acute viral syndrome, Otitis media Patient Disposition: Home, Self-Care Time of Disposition Decision: 10:07 Condition: Good Mode of Transportation: Private Vehicle Prescriptions / Home Meds: New doxycycline hyclate 100 mg capsule 100 mg PO BID 7 Days Qty: 14 0RF No Action nabumetone 750 mg tablet 750 mg PO BID PRN (Reason: pain) Qty: 14 0RF methocarbamol 750 mg tablet 750 mg PO Q6H PRN (Reason: pain) Qty: 30 0RF citalopram 20 mg tablet 20 mg PO DAILY olanzapine 5 mg tablet 5 mg PO DAILY topiramate 50 mg tablet 50 mg PO Q12H fluticasone propionate 50 mcg/actuation spray,suspension 1 spray INTRANASAL Q12H atorvastatin 80 mg tablet 80 mg PO DAILY amitriptyline 25 mg tablet 25 mg PO BEDTIME amiodarone 100 mg tablet 100 mg PO DAILY gabapentin 300 mg capsule 300 mg PO Q8H furosemide 20 mg tablet 20 mg PO DAILY alprazolam 1 mg tablet 1 mg PO .q6 PRN (Reason: anxiety) aspirin [Adult Aspirin Regimen] 81 mg tablet,delayed release (DR/EC) 81 mg PO DAILY carvedilol 6.25 mg tablet 6.25 mg PO Q12H losartan 25 mg tablet 25 mg PO DAILY pantoprazole 40 mg tablet,delayed release (DR/EC) 40 mg PO DAILY spironolactone 25 mg tablet 12.5 mg PO DAILY amactfqcho-offmdwyebmrad-qofr 50-325-40 mg tablet 1 tab PO Q6H PRN (Reason: pain) ibuprofen 800 mg tablet 800 mg PO Q8H PRN (Reason: pain) Qty: 20 0RF Print Language: Polish Instructions: Chest Pain (ED), Ear Infection (ED) Referrals: Rock Robertson MD [Primary Care Provider, Family Practice] - 1 week Discharge Date/Time: 02/17/25 10:17
== END 2025-02-17 10:17 | disposition home or self-care (01) ==
PROVIDERS: Emergency Provider Emergency Medicine; PCP Family Medicine
DX: R07.89 Other chest pain (principal); B34.9 Viral infection, unspecified; H66.93 Otitis media, unspecified, bilateral; Z95.0 Presence of cardiac pacemaker; I42.9 Cardiomyopathy, unspecified; F17.200 Nicotine dependence, unspecified, uncomplicated
CPT/HCPCS: 36415; 71045; 80053; 84484; 84703; 85025; 85610; 93005; 96374; 99285; J3490

== ENCOUNTER 2025-03-10 18:28 | Emergency (ER) | payer SELFPAY ==
[2025-03-10] VITALS (11 sets, daily range): BP systolic 131; BP diastolic 71; PULSE 73–86; TEMP 36.5; O2SAT 97–100; BMI 28.7
--- NOTE | 2025-03-10 18:39 | ECG_ITS ---
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 Measurements Intervals [place] Rate: 87 P: 27 MS: 172 QRS: 237 QRSD: 120 T: 41 QT: 396 QTc: 441 Interpretive Statements NORMAL SINUS RHYTHM 18411 Electronic ventricular pacemaker Abnormal ECG Compared to ECG 02/17/2025 09:01:03 No significant changes Electronically Signed On 03-11-2025 13:55:21 EDT by KATY ELLIS M.D.
--- NOTE | 2025-03-10 18:39 | XR_ITS ---
The [address] [address] Patient Name: SERGIO BERNARDO MRN: [id number] date: 1980 Sex: F Assigned Patient Location: ER Current Patient Location: Accession/Order Number: [id number] Exam Date: 03/10/2025 18:48 Report Date: 03/11/2025 08:32 At the request of: MARKO FRANK Procedure: XR chest 1V PA CHEST: CLINICAL HISTORY: Defibrillator fired COMPARISON: 02/17/2025 FINDINGS: Left-sided pacemaker/ICD. Enlarged cardiomediastinal silhouette. Lungs are clear. No effusion or pneumothorax. XR/XR chest 1V IMPRESSION: NEGATIVE ACUTE PLEURAL-PARENCHYMAL DISEASE. Impression dictated by: Morgan Sahu M.D. 03/11/2025 8:32 AM Dictation Location: [place] [address] Electronically authenticated by: [id number] Y Date: 03/11/2025 08:32
--- OUTSIDE RECORDS SUMMARY | 2025-03-10 18:39 | XMS_ITS | CCD ---
Author Organization [facility] Care Team Providers Care Air Support Control Officer Name Role Phone Amir, Hasan Unavailable Unavailable NADERER, ROCK~[phone] UNKNOWN Unavailable Unavailable Yovanny Pollard Unavailable Unavailable Abdal Rex, Sulieman Unavailable Unavailab le REX, SULIEMAN ABDAL Unavailable Unavailab le Abdal Rex, Sulieman Unavailable Unavailab le Abdal Rex, Sulieman Unavailable Unavailab le Abdal Rex, Sulieman Unavailable Unavailab le NADERER, ROCK~[id number] UNKNOWN Unavailable Unavailable NADERER, ROCK~[id number] UNKNOWN Unavailable Unavailable Echols, Jada F Unavailable Unavailable Echols, Jada F Unavailable Unavailable NADERER, ROCK~[phone] UNKNOWN Unavailable Unavailable AynupurireAlexandere N Unavailable Unavailable Lyster, Harris. Unavailable Unavailable Amir, Hasan Unavailable Unavailable Lyster, Harris. Unavailable Unavailable Merchant, Bynum Unavailable Unavailable Lyster, Harris. Unavailable Unavailable Lyster, Harris. Unavailable Unavailable Lyster, Harris. Unavailable Unavailable Lyster, Harris. Unavailable Unavailable Lyster, Harris. Unavailable Unavailable Lyster, Harris. Unavailable Unavailable Lyster, Harris. Unavailable Unavailable Morrill, Amador Unavailable Unavailable Morrill, Amador Unavailable Unavailable Hussein, Daphney Unavailable Unavailable Morrill, Amador Unavailable Unavailable Morrill, Amador Unavailable Unavailable Morrill, Amador Unavailable Unavailable Morrill, Amador Unavailable Unavailable Morrill, Amador Unavailable Unavailable Morrill, Amador Unavailable Unavailable UNKNOWN, PROVIDER Unavailable Unavailable [...] JUNE Attending Unavailable JASS JUNE Admitting Unavailable JAVI, EVELYN K Consulting Unavailable [...] Primary Care Unavailable Hampole, Ubaldo Vagesh Unavailable [phone] Neto Demarco MD Unavailable Rock Dunbar Primary Care Provider [phone] DARLING MARTINEZ Admitting Unavailable JUAN, DARLING Attending [...] sources) amoxicillin; Translations: [amoxicillin] Drug Allergy 9 [facility] Repository (4 sources) cefOXitin; Translations: [Mefoxin] Drug Allergy 9 [facility] Repository (1 source) morphine; Translations: [morphine] Drug Allergy [facility] Repository (4 sources) sulfamethoxazole / trimethoprim; Translations: [Bactrim] Drug Allergy 3 [facility] Repository (5 sources) Amino Acids; Translations: [LISINOPRIL] Drug Allergy 3 [facility] Repository (3 sources) Angiotensin Converting Enzyme (Madi) Inhibitors; Translations: [MADI INHIBITORS] Drug allergy (disorder) 3 [facility] Repository (2 sources) Sulfonamides (Antibiotic) Drug allergy (disorder) 3 [facility] Repository (4 sources) Vancomycin; Translations: [VANCOMYCIN] Drug Allergy 2 [facility] Repository (7 sources) Angiotensin-converti ng enzyme inhibitor agent Drug Allergy 3 Other: See Comments, [facility] (9 sources) cefOXitin; Translations: [CEFOXITIN] Drug Allergy 9 [facility] (7 sources) Lisinopril Drug Allergy 3 [facility] (9 sources) Sulfamethoxazole / Trimethoprim; Translations: [SULFAMETHOXAZOLE-TR IMETHOPRIM] Drug Allergy 3 [facility] (9 sources) Sulfonamides (Antibiotic); Translations: [SULFA (SULFONAMIDE ANTIBIOTICS)] Drug Allergy 3 [facility] (7 sources) Vancomycin Drug Allergy 2 [facility] Medications Current Medications Medication Drug Class(es) Dates [...] disease (1 source) Atherosclerotic heart disease of [place] coronary artery without angina pectoris; Translations: [ATHSCL HEART DISEASE OF [place] CORONARY ARTERY W/O ANG PCTRS] Onset: 04-29-20 [...] 04-29-20 Episodic Other aftercare (1 source) Other 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 mill tin 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 (current) drug therapy; Translations: [OTH REPORTS ANALYSIS MANAGER CURRENT DRUG THERAPY] Onset: 09-29-19 Episodic Other [...] Range Facility Orders Onlyon 02-09-2025 Orders Only [id number] Reymundo Rios 1980 F Date Provider Department Center 02/09/2025 JASS BAUTISTA HVC CARD [facility] Family History Problem Relation Age of Onset Coronary artery disease Mother Diabetes Mother Heart failure Mother Other Mother Hypertension Mother Stroke Mother Stroke Father Clotting disorder Father Family Status - Relation Status Age at Mother Father Normal [facility] Orders Onlyon 11-10-2024 Orders Only [id number] Reymundo Rios 1980 F Date Provider Department Center 11/10/2024 JASS BAUTISTA HVC CARD [facility] Family History Problem Relation Age of Onset Coronary artery disease Mother Diabetes Mother Heart failure Mother Other Mother Hypertension Mother Stroke Mother Stroke Father Clotting disorder Father Family Status - Relation Status Age at Mother Father Normal [facility] CNPNon 01-22-2023 CNPN Telephone (BRENDA) CARITO RIOS ([id number]) 1980 F Date Time Provider Department 01/22/23 [...] Dept Phone 02/12/2023 11:15 AM DEVICE CLINIC [facility] [phone] Any scheduling issues:No Questions moving forward: No [...] Status:Closed by SALIMA HERRING on 01/22/23 Normal [facility] Basic metabolic 2000 panelon 01-02-2023 Anion gap [Moles/Vol] 11 mmol/L Normal 9-18 [facility] Comment on above: Order Comment: Speci men Type: BLOOD SPECIMENOrdering Facility: [facility] Address: [address] [place] [address] Performed By: #### 2 4321-2 ####[facility] [id number] [place] [address] [place] Calcium [Mass/Vol] 8.5 mg/dL Normal 8.5-10.2 [facility] Comment on above: Order Comment: Speci men Type: BLOOD SPECIMENOrdering Facility: [facility] Address: [address] Performed By: #### 2 4321-2 ####[facility] [id number] [place] [address] [place] Chloride [Moles/Vol] 104 mmol/L Normal 97-105 [facility] Comment on above: Order Comment: Speci men Type: BLOOD SPECIMENOrdering Facility: [facility] Address: [address] Performed By: #### 2 4321-2 ####[facility] [id number] [place] [address] [place] CO2 [Moles/Vol] 23 mmol/L Normal 22-30 [facility] Comment on above: Order Comment: Speci men Type: BLOOD SPECIMENOrdering Facility: [facility] Address: [address] [place], [place] [address] Performed By: #### 2 4321-2 ####[facility] [id number] [place] [address] [place] Creatinine [Mass/Vol] 0.80 mg/dL Normal 0.58-0.96 [facility] Comment on above: Order Comment: Speci men Type: BLOOD SPECIMENOrdering Facility: [facility] Address: [address] Performed By: #### 2 4321-2 ####[facility] [id number] [place] [address] [place] ESTIMATED GLOMERULAR FILTRATION RATE 96 mL/min/1.73m??? Normal >=60 [facility] Comment on above: Order Comment: Taisha turcios Type: BLOOD SPECIMENOrdering Facility: [facility] Address: [address] [place] [address] Result Comment: Suzette mated Glomerular Filtration Rate [...] Performed By: #### 2 4321-2 ####[facility] [id number] [place] [address] [place] Glucose [Mass/Vol] 98 mg/dL Normal 74-99 [facility] Comment on above: Order Comment: Taisha turcios Type: BLOOD SPECIMENOrdering Facility: [facility] Address: [address] [place] [address] Result Comment: The [place] [employer] (ADA) provides guidance for cutoff [...] Standards of Medical Care in Diabetes 2016, [place] [employer]. Diabetes Care. 2016.39(Suppl 1). Performed By: #### 2 4321-2 ####[facility] [id number] [place] [address] [place] Potassium [Moles/Vol] 4.3 mmol/L Normal 3.7-5.1 [facility] Comment on above: Order Comment: Taisha turcios Type: BLOOD SPECIMENOrdering Facility: [facility] Address: [address] Performed By: #### 2 4321-2 ####[facility] [id number] [place] [address] [place] Sodium [Moles/Vol] 138 mmol/L Normal 136-144 [facility] Comment on above: Order Comment: Speci men Type: BLOOD SPECIMENOrdering Facility: [facility] Address: [address] Performed By: #### 2 4321-2 ####[facility] [id number] [place] [address] [place] Urea nitrogen [Mass/Vol] 8 mg/dL Normal 7-21 [facility] Comment on above: Order Comment: Speci men Type: BLOOD SPECIMENOrdering Facility: [facility] Address: [address] Performed By: #### 2 4321-2 ####[facility] [id number] [place] [address] [place] CBC panel Auto (Bld)on 01-02 Erythrocyte distribution width (RBC) [Ratio] 12.8 % Normal 11.5-15.0 [facility] Comment on above: Order Comment: Speci men Type: BLOOD SPECIMENOrdering Facility: [facility] Address: [address] Performed By: #### 5 8410-2 ####[facility] [id number] [address] [place] Hematocrit (Bld) [Volume fraction] 37.4 % Normal 36.0-46.0 [facility] Comment on above: Order Comment: Speci men Type: BLOOD SPECIMENOrdering Facility: [facility] Address: [address] Performed By: #### 5 8410-2 ####[facility] [id number] [place] [address] [place] Hemoglobin (Bld) [Mass/Vol] 13.0 g/dL Normal 11.5-15.5 [facility] Comment on above: Order Comment: Speci men Type: BLOOD SPECIMENOrdering Facility: [facility] Address: [address] [place] [address] Performed By: #### 5 8410-2 ####[facility] [id number] [place] [address] [place] MCH (RBC) [Entitic mass] 30.2 pg Normal 26.0-34.0 [facility] Comment on above: Order Comment: Speci men Type: BLOOD SPECIMENOrdering Facility: [facility] Address: [address] [place] [address] Performed By: #### 5 8410-2 ####[facility] [id number] [address] [place] MCHC (RBC) [Mass/Vol] 34.8 g/dL Normal 30.5-36.0 [facility] Comment on above: Order Comment: Speci men Type: BLOOD SPECIMENOrdering Facility: [facility] Address: [address] [place] [address] Performed By: #### 5 8410-2 ####[facility] [id number] [place] [address] [place] MCV (RBC) [Entitic vol] 86.8 fL Normal 80.0-100.0 [facility] Comment on above: Order Comment: Speci men Type: BLOOD SPECIMENOrdering Facility: [facility] Address: [address] [place] [address] Performed By: #### 5 8410-2 ####[facility] [id number] [place] [address] [place] Nucleated RBC (Bld) [#/Vol] 10*3/uL Normal <0.01 [facility] Comment on above: Order Comment: Speci men Type: BLOOD SPECIMENOrdering Facility: [facility] Address: [address] [place], [place] [address] Performed By: #### 5 8410-2 ####[facility] [id number] [place] [address] [place] Platelet mean volume (Bld) [Entitic vol] 11.1 fL Normal 9.0-12.7 [facility] Comment on above: Order Comment: Speci men Type: BLOOD SPECIMENOrdering Facility: [facility] Address: [address] [place], [place] [address] Performed By: #### 5 8410-2 ####[facility] [id number] [place] [address] [place] Platelets (Bld) [#/Vol] 146 10*3/uL Low 150-400 [facility] Comment on above: Order Comment: Speci men Type: BLOOD SPECIMENOrdering Facility: [facility] Address: [address] [place] [address] Performed By: #### 5 8410-2 ####[facility] [id number] [place] [address] [place] RBC (Bld) [#/Vol] 4.31 10*6/uL Normal 3.90-5.20 [facility] Comment on above: Order Comment: Speci men Type: BLOOD SPECIMENOrdering Facility: [facility] Address: [address] [place], [place] [address] Performed By: #### 5 8410-2 ####[facility] [id number] [place] [address] [place] WBC (Bld) [#/Vol] 8.88 10*3/uL Normal 3.70-11.00 [facility] Comment on above: Order Comment: Speci men Type: BLOOD SPECIMENOrdering Facility: [facility] Address: [address] [place] [address] Performed By: #### 5 8410-2 ####[facility] [id number] [facility] [place] [id number] [address] [place] ECG COMPLETEon 01-02-2023 ECG COMPLETE Ventricular Rate : 6 0 BPM Atrial Rate : 60 BPM P-R Interval : 136 ms QRS Duration : 182 ms Q-T Interval : 500 ms QTC Calculation(Bazett) : 500 ms Calculated P [place] : 89 degrees Calculated R [place] : -137 degrees Calculated T [place] : 23 degrees AV DUAL-PACED RHYTHM BIVENTRICULAR PACEMAKER DETECTED ABNORMAL ECG Confirmed by HONG SHAFER MD ([id number]) on 01/05/2023 2:14:49 PM NAME : CARITO IROS PID : [id number] : 1980 Gender : Female Race : ORD : [id number] Procedure Date : Jan 02 2023 06:11:19 Edit Date : Jan 05 2023 14:14:52 Diagnosis: AV DUAL-PACED RHYTHM BIVENTRICULAR PACEMAKER DETECTED ABNORMAL ECG Confirmed by HONG SHAFER MD ([id number]) on 01/05/2023 2:14:49 PM Test Reason : Post-OP Location : 361 : J61 [id number] Overread By : HONG SHAFER MD Edited By : HONG SHAFER MD Referred By : , Acquired by : LACEY TOM [facility] XR CHEST 2V FRONTAL/LATon XR CHEST 2V [...] and soft tissues: Unremarkable. IMPRESSION: See result. 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: WES Transcribe Date/Time: Jan 02 2023 10:41A Dictated by : CLIF ROTHMAN MD This examination was interpreted and the report reviewed and electronically signed by: CLIF ROTHMAN MD on Jan 02 2023 10:45AM EST [id number] Normal [facility] ANES POSTPROC EVALon 023 ANES POSTPROC EVAL HNO ID: [id number] Author: Vikki Pretty DO Service: ? Author Type: Anesthesiologist Type: Anesthesia Postprocedure Evaluation Filed: 01/01/2023 7:58 PM Note Text: POST ANESTHESIA EVALUATION NOTE : 1980 Procedure Summary Date: 01/01/23 Room / Location: [place] [address] [facility] AND VAS Anesthesia Start: 125 Anesthesia Stop: 1926 Procedures: REMOVAL ELECTRODE(S) IMPLANTABLE DEFIBRILLATOR TRANSVENOUS EXTRACTION SENIOR SERVICE AIDE PACEMAKER SINGLE Diagnosis: Chronic systolic CHF (congestive [...] January 01, 2023 TIME: 7:57 PM CSN: [id number] Normal [facility] ANES PRE-OPon 01-01-2023 ANES PRE-OP HNO ID: [id number] Author: Jama Wilson MD Service: ? Author Type: Anesthesiologist Type: Anesthesia Preprocedure Evaluation Filed: 01/01/2023 1:00 PM Note Text: ANESTHESIOLOGY DAY OF SURGERY NOTE : 1980 Procedure Information Anesthesia Start Date/Time: 01/01/23 1256 Procedures: REMOVAL ELECTRODE(S) IMPLANTABLE DEFIBRILLATOR TRANSVENOUS EXTRACTION SENIOR SERVICE AIDE PACEMAKER SINGLE Location: [place] [facility] / [facility] AND VAS [...] and consent discussed: yes. Patient / Responsible Libertarian agrees to proceed: yes Patient / Surrogate [...] January 01, 2023 TIME: 1:00 PM CSN: [id number] Normal [facility] ARTERIAL BLOOD GASESon 01-01 Base excess Calc (Bld) [Moles/Vol] 0 mmol/L Normal 0-2 [facility] Comment on above: Order Comment: Speci men Type: ARTERIAL BLOOD SPECIMENOrdering Facility: [facility] Address: [address] [place] [address] Performed By: #### A LLBG ####[facility] [id number] [place] [address] [place] Calcium.ionized (Bld) [Mass/Vol] 1.19 mmol/L Normal 1.08-1.30 [facility] Comment on above: Order Comment: Speci men Type: ARTERIAL BLOOD SPECIMENOrdering Facility: [facility] Address: [address] [place] [address] Performed By: #### A LLBG ####[facility] [id number] [place] [address] [place] Calcium.ionized adjusted to pH 7.4 (BldA) [Moles/Vol] 1.20 mmol/L Normal 1.08-1.30 [facility] Comment on above: Order Comment: Speci men Type: ARTERIAL BLOOD SPECIMENOrdering Facility: [facility] Address: [address] [place] [address] Performed By: #### A LLBG ####[facility] [id number] [place] [address] [place] Carboxyhemoglobin (BldA) [Mass fraction] 6.0 % High 0.0-2.0 [facility] Comment on above: Order Comment: Speci men Type: ARTERIAL BLOOD SPECIMENOrdering Facility: [facility] Address: [address] Result Comment: Carb oxyhemoglobin Reference Range for Smokers: 2.0-8.0% Performed By: #### A LLBG ####[facility] [id number] [place] [address] [place] CO2 (Bld) [Partial pressure] 38 mm Hg Normal 36-46 [facility] Comment on above: Order Comment: Speci men Type: ARTERIAL BLOOD SPECIMENOrdering Facility: [facility] Address: [address] Performed By: #### A LLBG ####[facility] [id number] [place] [address] [place] CO2 [Moles/Vol] 25 mmol/L Normal 22-28 [facility] Comment on above: Order Comment: Speci men Type: ARTERIAL BLOOD SPECIMENOrdering Facility: [facility] Address: [address] Performed By: #### A LLBG ####[facility] [id number] [place] [address] [place] CO2 adjusted to patient's actual temperature (Bld) [Partial pressure] 38 mmHg Normal 36-46 [facility] Comment on above: Order Comment: Speci men Type: ARTERIAL BLOOD SPECIMENOrdering Facility: [facility] Address: [address] Performed By: #### A LLBG ####[facility] [id number] [place] [address] [place] Glucose [Mass/Vol] 85 mg/dL Normal 60-105 [facility] Comment on above: Order Comment: Speci men Type: ARTERIAL BLOOD SPECIMENOrdering Facility: [facility] Address: [address] Performed By: #### A LLBG ####[facility] [id number] [place] [address] [place] HCO3 (Bld) [Moles/Vol] 24 mmol/L Normal 22-26 [facility] Comment on above: Order Comment: Speci men Type: ARTERIAL BLOOD SPECIMENOrdering Facility: [facility] Address: [address] [place] [address] Performed By: #### A LLBG ####[facility] [id number] [place] [address] [place] Hematocrit (Bld) [Volume fraction] 38.6 % Normal 36.0-46.0 [facility] Comment on above: Order Comment: Speci men Type: ARTERIAL BLOOD SPECIMENOrdering Facility: [facility] Address: [address] [place] [address] Performed By: #### A LLBG ####[facility] [id number] [place] [address] [place] Hemoglobin (Bld) [Mass/Vol] 12.5 g/dL Normal 11.5-15.5 [facility] Comment on above: Order Comment: Speci men Type: ARTERIAL BLOOD SPECIMENOrdering Facility: [facility] Address: [address] [place] [address] Performed By: #### A LLBG ####[facility] [id number] [place] [address] [place] Lactate [Moles/Vol] 0.5 mmol/L Normal 0.5-2.2 [facility] Comment on above: Order Comment: Speci men Type: ARTERIAL BLOOD SPECIMENOrdering Facility: [facility] Address: [address] [place], [place] [address] Performed By: #### A LLBG ####[facility] [id number] [place] [address] [place] Methemoglobin (Bld) [Mass fraction] 0.7 % Normal 0.0-1.5 [facility] Comment on above: Order Comment: Speci men Type: ARTERIAL BLOOD SPECIMENOrdering Facility: [facility] Address: [address] Performed By: #### A LLBG ####[facility] [id number] [place] [address] [place] Oxygen (Bld) [Partial pressure] 243 mm Hg High 85-95 [facility] Comment on above: Order Comment: Speci men Type: ARTERIAL BLOOD SPECIMENOrdering Facility: [facility] Address: [address] Performed By: #### A LLBG ####[facility] [id number] [place] [address] [place] Oxygen adjusted to patient's actual temperature (Bld) [Partial pressure] 243 mmHg High 85-95 [facility] Comment on above: Order Comment: Speci men Type: ARTERIAL BLOOD SPECIMENOrdering Facility: [facility] Address: [address] Performed By: #### A LLBG ####[facility] [id number] [place] [address] [place] Oxyhemoglobin (BldA) [Mass fraction] 93 % Low 95-98 [facility] Comment on above: Order Comment: Speci men Type: ARTERIAL BLOOD SPECIMENOrdering Facility: [facility] Address: [address] [place] [address] Performed By: #### A LLBG ####[facility] [id number] [place] [address] [place] pH (Bld) 7.42 [pH] Normal 7.35-7.45 [facility] Comment on above: Order Comment: Speci men Type: ARTERIAL BLOOD SPECIMENOrdering Facility: [facility] Address: [address] Performed By: #### A LLBG ####[facility] [id number] [place] [address] [place] pH adjusted to patient's actual temperature (Bld) 7.42 Normal 7.35-7.45 [facility] Comment on above: Order Comment: Speci men Type: ARTERIAL BLOOD SPECIMENOrdering Facility: [facility] Address: [address] [place] [address] Performed By: #### A LLBG ####[facility] [id number] [place] [address] [place] Potassium [Moles/Vol] 3.7 mmol/L Normal 3.5-5.0 [facility] Comment on above: Order Comment: Speci men Type: ARTERIAL BLOOD SPECIMENOrdering Facility: [facility] Address: [address] [place] [address] Performed By: #### A LLBG ####[facility] [id number] [address] [place] Sodium [Moles/Vol] 138 mmol/L Normal 136-144 [facility] Comment on above: Order Comment: Speci men Type: ARTERIAL BLOOD SPECIMENOrdering Facility: [facility] Address: [address] [place] [address] Performed By: #### A LLBG ####[facility] [id number] [place] [address] [place] Bacteria Ur Culton 3 Bacteria identified Cx Nom (U) CULTURE, URINE: No growth (<1,000 CFU/ml) Normal [facility] Comment on above: Performed By: #### 6 30-4 ####[facility] [id number] [place] [address] [place] INTRAOPERATIVE ECHO PREon INTRAOPERATIVE ECHO PRE Echocardiography Report: Intraoperative Echo Pre (CADY)/Post [facility] OR - J4 Date of service: 01/01/2023 1:12:09 PM GRADER Indication: RV lead extraction Technologist: staff Interpreting [...] pattern showed normal systolic flow. MITRAL VALVE [place] mitral valve. There is trace mitral valve regurgitation. TRICUSPID VALVE [place] tricuspid valve. There is trace tricuspid valve [...] findings communicated to procedural team Final [facility] [employer] [facility] Image : [id number] See Link below for Image Normal [facility] SURGICAL PATHOLOGYon 023 CASE REPORT Normal [facility] Comment on above: Order Comment: Speci men Type: DEVICE SPECIMENOrdering Facility: [facility] Address: [address] [place] [address] Result Comment: Surg ical Pathology Report Case: [id number] Authorizing Provider: Darling Martinez MD Collected: 01/01/2023 05:14 PM Ordering Location: Admitting Received: 01/04/2023 07:43 AM Pathologist: Fariha Salcido MD Specimens: A) - HARDWARE, A Lead B) - HARDWARE, ICD lead Performed By: #### S ####[facility] [id number] [address] [place] CLINICAL HISTORY Normal [facility] Comment on above: Order Comment: Speci men Type: DEVICE SPECIMENOrdering Facility: [facility] Address: [address] [place] [address] Result Comment: Pre- op diagnosis: Chronic systolic CHF (congestive heart failure) ([facility]) [I50.22] NICM (nonischemic cardiomyopathy) ([facility]) [I42.8] Other mechanical complication of cardiac electrode, initial encounter [T82.190A] Performed By: #### S ####[facility] [id number] [address] [place] DIAGNOSIS COMMENT Microscopic examinat ion of parts A and B demonstrates a calcified fibrous cuff is demonstrated in 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 Normal [facility] Comment on above: Order Comment: Speci men Type: DEVICE SPECIMENOrdering Facility: [facility] Address: [address] [place] [address] Performed By: #### S ####[facility] [id number] [address] [place] FINAL DIAGNOSIS Normal [facility] Comment on above: Order Comment: Speci men Type: DEVICE SPECIMENOrdering Facility: [facility] Address: [address] [place] [address] Result Comment: A. L ead, extraction: -Calcified fibrous cuff. B. Lead extraction: -Calcified fibrous cuff. Performed By: #### S ####[facility] [id number] [address] FINAL PERFORMING LAB Normal [facility] Comment on above: Order Comment: Speci men Type: DEVICE SPECIMENOrdering Facility: [facility] Address: [address] [place] [address] Result Comment: Diag nostic interpretation performed at [facility], [address] [address] CLIA# [id number] Supply Aide: Ramiro Anguiano M.D. Performed By: #### S ####[facility] [id number] [address] GROSS DESCRIPTION A. HARDWARE Normal [facility] Comment on above: Order Comment: Speci men Type: DEVICE SPECIMENOrdering Facility: [facility] Address: [address] [place] [address] Result Comment: Rece ived in formalin, labeled A lead is a segment of lead wire measuring 32.0 cm in length and 0.2 cm in diameter. The tip is present. The screw tip is deployed. A connector pin is not present. The body of the lead is fully insulated. Located 7.0 cm from the tip, a segment of xpik-knq-sdsc soft tissue is present, which measures 6.0 [...] 2023 10:48 AM Gross examination performed at [facility], [address] [place] [address] Performed By: #### S ####[facility] [id number] [address] [place] URINALYSIS, DIPSTICK ONLYon 01-01-2023 Bilirubin Ql (U) Negative Normal Negative [facility] Comment on above: Order Comment: Speci men Type: URINE SPECIMENOrdering Facility: [facility] Address: [address] [place] [address] Performed By: #### U A ####[facility] [id number] [address] [place] Clarity (Unsp spec) Clear Normal Clear [facility] Comment on above: Order Comment: Speci men Type: URINE SPECIMENOrdering Facility: [facility] Address: [address] [place] [address] Performed By: #### U A ####[facility] [id number] [place] [address] [place] Color (U) Yellow Normal Yellow [facility] Comment on above: Order Comment: Speci men Type: URINE SPECIMENOrdering Facility: [facility] Address: [address] [place] [address] Performed By: #### U A ####[facility] [id number] [place] [address] [place] Glucose Test strip (U) [Mass/Vol] Negative Normal Trace, Negative [facility] Comment on above: Order Comment: Speci men Type: URINE SPECIMENOrdering Facility: [facility] Address: [address] [place] [address] Performed By: #### U A ####[facility] [id number] [place] [address] [place] Hemoglobin Ql (U) 3+ Abnormal Negative, Trace [facility] Comment on above: Order Comment: Speci men Type: URINE SPECIMENOrdering Facility: [facility] Address: [address] [place] [address] Performed By: #### U A ####[facility] [id number] [place] [address] [place] Ketones Ql (U) 2+ Abnormal Trace, Negative [facility] Comment on above: Order Comment: Speci men Type: URINE SPECIMENOrdering Facility: [facility] Address: [address] [place], [place] [address] Performed By: #### U A ####[facility] [id number] [place] [address] [place] Leukocyte esterase Test strip Ql (U) 25 Jayleen/uL Normal Negative, 25 Jayleen/uL [facility] Comment on above: Order Comment: Speci men Type: URINE SPECIMENOrdering Facility: [facility] Address: [address] [place], [place] [address] Performed By: #### U A ####[facility] [id number] [place] [address] [place] Nitrite Ql (U) Negative Normal Negative [facility] Comment on above: Order Comment: Speci men Type: URINE SPECIMENOrdering Facility: [facility] Address: [address] [place], [place] [address] Performed By: #### U A ####[facility] [id number] [address] [place] pH (U) 5.5 [pH] Normal 5.0-8.0 [facility] Comment on above: Order Comment: Speci men Type: URINE SPECIMENOrdering Facility: [facility] Address: [address] [place] [address] Performed By: #### U A ####[facility] [id number] [place] [address] [place] Protein (U) [Mass/Vol] 1+ Abnormal Trace, Negative [facility] Comment on above: Order Comment: Speci men Type: URINE SPECIMENOrdering Facility: [facility] Address: [address] [place] [address] Performed By: #### U A ####[facility] [id number] [place] [address] [place] Specific gravity (U) [Rel density] 1.031 High 1.005-1.03 0 [facility] Comment on above: Order Comment: Speci men Type: URINE SPECIMENOrdering Facility: [facility] Address: [address] [place] [address] Performed By: #### U A ####[facility] [id number] [place] [address] [place] Urobilinogen Ql (U) Negative Normal Negative [facility] Comment on above: Order Comment: Speci men Type: URINE SPECIMENOrdering Facility: [facility] Address: [address] [place] [address] Performed By: #### U A ####[facility] [id number] [place] [address] [place] CBC panel Auto (Bld)on 12-30 Erythrocyte distribution width (RBC) [Ratio] 12.8 % Normal 11.5-15.0 [facility] Comment on above: Order Comment: Speci men Type: BLOOD SPECIMENOrdering Facility: [facility] Address: [address] Performed By: #### 5 8410-2 ####[facility] [id number] [address] [place] Hematocrit (Bld) [Volume fraction] 41.2 % Normal 36.0-46.0 [facility] Comment on above: Order Comment: Speci men Type: BLOOD SPECIMENOrdering Facility: [facility] Address: [address] Performed By: #### 5 8410-2 ####[facility] [id number] [place] [address] [place] Hemoglobin (Bld) [Mass/Vol] 14.5 g/dL Normal 11.5-15.5 [facility] Comment on above: Order Comment: Speci men Type: BLOOD SPECIMENOrdering Facility: [facility] Address: [address] Performed By: #### 5 8410-2 ####[facility] [id number] [address] [place] MCH (RBC) [Entitic mass] 30.5 pg Normal 26.0-34.0 [facility] Comment on above: Order Comment: Speci men Type: BLOOD SPECIMENOrdering Facility: [facility] Address: [address] Performed By: #### 5 8410-2 ####[facility] [id number] [place] [address] [place] MCHC (RBC) [Mass/Vol] 35.2 g/dL Normal 30.5-36.0 [facility] Comment on above: Order Comment: Speci men Type: BLOOD SPECIMENOrdering Facility: [facility] Address: [address] Performed By: #### 5 8410-2 ####[facility] [id number] [place] [address] [place] MCV (RBC) [Entitic vol] 86.7 fL Normal 80.0-100.0 [facility] Comment on above: Order Comment: Speci men Type: BLOOD SPECIMENOrdering Facility: [facility] Address: [address] [place] [address] Performed By: #### 5 8410-2 ####[facility] [id number] [place] [address] [place] Nucleated RBC (Bld) [#/Vol] 10*3/uL Normal <0.01 [facility] Comment on above: Order Comment: Speci men Type: BLOOD SPECIMENOrdering Facility: [facility] Address: [address] [place] [address] Performed By: #### 5 8410-2 ####[facility] [id number] [place] [address] [place] Platelet mean volume (Bld) [Entitic vol] 10.9 fL Normal 9.0-12.7 [facility] Comment on above: Order Comment: Speci men Type: BLOOD SPECIMENOrdering Facility: [facility] Address: [address] [place], [place] [address] Performed By: #### 5 8410-2 ####[facility] [id number] [place] [address] [place] Platelets (Bld) [#/Vol] 208 10*3/uL Normal 150-400 [facility] Comment on above: Order Comment: Speci men Type: BLOOD SPECIMENOrdering Facility: [facility] Address: [address] [place], [place] [address] Performed By: #### 5 8410-2 ####[facility] [id number] [place] [address] [place] RBC (Bld) [#/Vol] 4.75 10*6/uL Normal 3.90-5.20 [facility] Comment on above: Order Comment: Speci men Type: BLOOD SPECIMENOrdering Facility: [facility] Address: [address] [address] Performed By: #### 5 8410-2 ####[facility] [id number] [place] [address] [place] WBC (Bld) [#/Vol] 5.67 10*3/uL Normal 3.70-11.00 [facility] Comment on above: Order Comment: Speci men Type: BLOOD SPECIMENOrdering Facility: [facility] Address: [address] [address] Performed By: #### 5 8410-2 ####[facility] [id number] [address] [place] CNOVon 12-30-2022 CNOV Office Visit (CARTMN ) CARITO RIOS ([id number]) 1980 F Date Time Provider Department 12/30/22 [...] hx of NICM and resultant HFrEF s/p SPECIAL TESTER-D in 2008 c/b by recent RV lead [...] Laterality Date PAST SURGICAL HISTORY OF 2008 SPECIAL TESTER-D PAST SURGICAL HISTORY OF multiple device surgeries [...] ABORHD No (more content not included)... Normal [facility] CONFIRM BLOOD TYPEon 023 ABO O Normal [facility] Comment on above: Order Comment: Speci men Type: BLOOD SPECIMENOrdering Facility: [facility] Address: [address] [place] [address] Performed By: #### C ONABO ####[facility] B[facility] BANKCLIA [id number] [place] [address] [place] Rh Nom (Bld) Positive Normal [facility] Comment on above: Order Comment: Speci men Type: BLOOD SPECIMENOrdering Facility: [facility] Address: [address] [place] [address] Performed By: #### C ONABO ####[facility] BLO[facility] BANKCLIA [id number] [id number] [address] [place] [address] CARDIAC W [...] ABDOMEN: Postcholecystectomy. Prominent splenic vein BONES: Unremarkable Supervisor Word Processing (topogram) images: No additional findings. IMPRESSION: 1. PPM/ICD device and lead position as described above. There are epicardial wires in the left ventricle tunneled to the ICD device. 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: [facility] Transcribe Date/Time: Dec 30 2022 12:22P Dictated by : WOLF SALCIDO MD This examination was interpreted and the report reviewed and electronically signed by: WOLF SALCIDO MD on Dec 30 2022 12:41PM EST [id number] Normal [facility] Comprehensive metabolic 2000 panelon 12-30-2022 Albumin [Mass/Vol] 4.6 g/dL Normal 3.9-4.9 [facility] Comment on above: Order Comment: Speci men Type: BLOOD SPECIMENOrdering Facility: [facility] Address: [address] [place], [place] [address] Performed By: #### 2 4323-8 ####[facility] [id number] [place] [address] [place] ALP [Catalytic activity/Vol] 61 U/L Normal 34-123 [facility] Comment on above: Order Comment: Speci men Type: BLOOD SPECIMENOrdering Facility: [facility] Address: [address] [address] Performed By: #### 2 4323-8 ####[facility] [id number] [address] [place] ALT [Catalytic activity/Vol] 12 U/L Normal 7-38 [facility] Comment on above: Order Comment: Speci men Type: BLOOD SPECIMENOrdering Facility: [facility] Address: [address] [address] Performed By: #### 2 4323-8 ####[facility] [id number] [place] [address] [place] Anion gap [Moles/Vol] 12 mmol/L Normal 9-18 [facility] Comment on above: Order Comment: Speci men Type: BLOOD SPECIMENOrdering Facility: [facility] Address: [address] [place] [address] Performed By: #### 2 4323-8 ####[facility] [id number] [address] [place] AST [Catalytic activity/Vol] 23 U/L Normal 13-35 [facility] Comment on above: Order Comment: Speci men Type: BLOOD SPECIMENOrdering Facility: [facility] Address: [address] Performed By: #### 2 4323-8 ####[facility] [id number] [place] [address] [place] Bilirubin [Mass/Vol] 0.5 mg/dL Normal 0.2-1.3 [facility] Comment on above: Order Comment: Speci men Type: BLOOD SPECIMENOrdering Facility: [facility] Address: [address] [place] [address] Performed By: #### 2 4323-8 ####[facility] [id number] [place] [address] [place] Calcium [Mass/Vol] 8.9 mg/dL Normal 8.5-10.2 [facility] Comment on above: Order Comment: Speci men Type: BLOOD SPECIMENOrdering Facility: [facility] Address: [address] [place] [address] Performed By: #### 2 4323-8 ####[facility] [id number] [place] [address] [place] Chloride [Moles/Vol] 102 mmol/L Normal 97-105 [facility] Comment on above: Order Comment: Speci men Type: BLOOD SPECIMENOrdering Facility: [facility] Address: [address] [place] [address] Performed By: #### 2 4323-8 ####[facility] [id number] [place] [address] [place] CO2 [Moles/Vol] 24 mmol/L Normal 22-30 [facility] Comment on above: Order Comment: Speci men Type: BLOOD SPECIMENOrdering Facility: [facility] Address: [address] [place], [place] [address] Performed By: #### 2 4323-8 ####[facility] [id number] [place] [address] [place] Creatinine [Mass/Vol] 0.73 mg/dL Normal 0.58-0.96 [facility] Comment on above: Order Comment: Speci men Type: BLOOD SPECIMENOrdering Facility: [facility] Address: [address] [place], [place] [address] Performed By: #### 2 4323-8 ####[facility] [id number] [place] [address] [place] ESTIMATED GLOMERULAR FILTRATION RATE 107 mL/min/1.73m??? Normal >=60 [facility] Comment on above: Order Comment: Speci men Type: BLOOD SPECIMENOrdering Facility: [facility] Address: [address] [address] Result Comment: Suzette mated Glomerular Filtration Rate [...] Performed By: #### 2 4323-8 ####[facility] [id number] [place] [address] [place] Glucose [Mass/Vol] 87 mg/dL Normal 74-99 [facility] Comment on above: Order Comment: Taisha turcios Type: BLOOD SPECIMENOrdering Facility: [facility] Address: [address] [address] Result Comment: The [place] [employer] (ADA) provides guidance for cutoff [...] Standards of Medical Care in Diabetes 2016, [place] [employer]. Diabetes Care. 2016.39(Suppl 1). Performed By: #### 2 4323-8 ####[facility] [id number] [place] [address] [place] Potassium [Moles/Vol] 4.3 mmol/L Normal 3.7-5.1 [facility] Comment on above: Order Comment: Taisha turcios Type: BLOOD SPECIMENOrdering Facility: [facility] Address: [address] [address] Performed By: #### 2 4323-8 ####[facility] [id number] [place] [address] [place] Protein [Mass/Vol] 6.6 g/dL Normal 6.3-8.0 [facility] Comment on above: Order Comment: Taisha turcios Type: BLOOD SPECIMENOrdering Facility: [facility] Address: [address] [place] [address] Performed By: #### 2 4323-8 ####[facility] [id number] [place] [address] [place] Sodium [Moles/Vol] 138 mmol/L Normal 136-144 [facility] Comment on above: Order Comment: Speci tam Type: BLOOD SPECIMENOrdering Facility: [facility] Address: [address] [place] [address] Performed By: #### 2 4323-8 ####[facility] [id number] [address] [place] Urea nitrogen [Mass/Vol] 9 mg/dL Normal 7-21 [facility] Comment on above: Order Comment: Speci tam Type: BLOOD SPECIMENOrdering Facility: [facility] Address: [address] [place] [address] Performed By: #### 2 4323-8 ####[facility] [id number] [place] [address] [place] ECHOon 12-30-2022 Echocardiography Echocardiography Rep ort: Transthoracic Echo [facility] LEXI-2 Date of service: 12/30/2022 2:24:14 PM GRADER Ordering physician: DARLING MARTINEZ Indication: NICM, ICD Malfunction Technologist: Bernardino Horta Interpreting physician: Shakir Escobar MD PATIENT: Name: CARITO RIOS : 1980 Age: 42 years Gender: F History of heart failure with hospitalization and cardiomyopathy. Previous cardiovascular interventions: SPECIAL TESTER-D (2008, 09/21/2022) Primary rhythm: AV Paced. Height: [...] * * Final * * * [employer] Image : [id number] [id number] Normal [facility] HISTORY PHYSICALon HISTORY PHYSICAL HNO ID: [id number] Author: Milo Cordova MD Service: Cardiac Surgery Author Type: Fellow Type: HANDP Filed: 12/30/2022 1:16 PM Note Text: [facility] HISTORY AND PHYSICIAL Carito Rios [id number] ATTENDING PHYSICIAN: Siomara Dutton MD CHIEF COMPLAINT: HPI: This is a 42 year old female who presents for a preoperative evaluation. She is scheduled for a pacemaker lead extraction in OR 79 on 01/01/2023. She has a history of NICM (iman LVEF reportedly 15% 2008), HF, s/p SPECIAL TESTER-D (2008), s/p multiple generator changes (4) most [...] Laterality Date PAST SURGICAL HISTORY OF 2008 SPECIAL TESTER-D PAST SURGICAL HISTORY OF multiple device surgeries [...] recent image (more content not included)... Normal [facility] PT panel Coag (PPP)on 2022 INR Coag (PPP) [Relative time] 1.0 {INR} Normal 0.9-1.3 [facility] Comment on above: Order Comment: Taisha turcios Type: BLOOD SPECIMENOrdering Facility: [facility] Address: [address] [place], [place] [address] Result Comment: Cecilia min K Antagonist (VKA) Therapeutic Range: INR 2 to 3 (Target INR of 2.5) Note: For patients treated with VKA drugs, such as warfarin, the [place] [employer] 2012 Guideline recommends [...] Chest 2012, 141:7S-47S Nelson RA, et al. [facility] 2017, 70: 252-289 Performed By: #### 3 4528-0 ####[facility] [id number] [place] [address] [place] PT Coag (PPP) [Time] 10.3 s Normal 9.7-13.0 [facility] Comment on above: Order Comment: Taisha turcios Type: BLOOD SPECIMENOrdering Facility: [facility] Address: [place] [address] Performed By: #### 3 4528-0 ####[facility] [id number] [place] [id number] [place] TYPE AND SCREEN,30 DAYon ABO O Normal [facility] Comment on above: Order Comment: Speci men Type: BLOOD SPECIMENOrdering Facility: [facility] Address: [address] [address] Performed By: #### T SCR30 ####CC MAIN BLOOD BANKCLIA [id number] [address] HISTORICAL AB SCR STATUS Negative Normal [facility] Comment on above: Order Comment: Speci men Type: BLOOD SPECIMENOrdering Facility: [facility] Address: [address] [place] [address] Performed By: #### T SCR30 ####CC MAIN BLOOD BANKCLIA [id number] [address] Rh Nom (Bld) Positive Normal [facility] Comment on above: Order Comment: Speci men Type: BLOOD SPECIMENOrdering Facility: [facility] Address: [address] [place] [address] Performed By: #### T SCR30 ####CC MAIN BLOOD BANKCLIA [id number] [address] XR CHEST 2V FRONTAL/LATon XR CHEST [...] Minimal spine degenerative changes IMPRESSION: See result 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 Patient scheduled for procedure with Dr. Darling Martinez on January 01, 2023. Sharon Tanner RN 12/25/2022 9:[address] Demarco reviewed tracings from Jajah. Mostly noise/artifact. No changes prior to procedure [...] Reason for Visit: Received Outside Medical Records [[id number]] Prescriptions as of 12/25/2022 - iv contrast [...] Encounter Status:Closed by SHARON TANNER on 12/25/22 [facility] [place] 12-23-2022 DEMONDN Telephone (CARDMN) CARITO RIOS ([id number]) 1980 F Date Time Provider Department 12/23/22 NETO DEMARCO During your visit today, we recorded the following information about you: Mary Kumarramandeep 12/23/2022 8:18 AM Signed December 23, 2022 Patient Contact Number: [phone] (home) [phone] (cell) Patient last seen within the last year: Yes Reason for Call: Device Issue: PLEASE ROUTE TO DEVICE CLINIC POOL Patient called in and states the monitor has been alarming (at work almost 25 times during the day). She contacted the monitor company and they advised that the machine is fine so the alarm is due to her heart. Please contact [facility]. Thank you, Mary Muniz, Admin Marianna Marvin 12/23/2022 1:30 PM Signed Aaron with [employer] is returning a call from [phone]. For Phoebe. Adenadoug SigalaFlorida Allergies As of Date: 12/23/2022 Noted [...] Encounter Status:Closed by MARIANNA WONG on 12/23/22 [facility] Telephone ([facility]) CARITO RIOS ([id number]) 1980 F Date Time Provider Department 12/23/22 NETO DEMARCO [facility] During your visit today, we [...] Status:Closed by AMI VELAZQUEZ RN on 12/23/22 [facility] 12-14-2022 [facility] Telephone ([facility]) CARITO RIOS ([id number]) 1980 F Date Time Provider Department 12/14/22 [...] OUTSIDE RECORDS: none enter date uploaded to [employer]Remember AND scanned AMBULATORY TESTING: OPD consult w/EP [...] [T82.110A] Order(s):BASIC METABOLIC PNL [SQBMP] Order #: [id number] FUTURE CBC [SQCBC] Order #: [id number] FUTURE TYPE AND SCREEN,30 DAY [[id number]] Order #: [id number] FUTURE CONFIRM BLOOD TYPE [SQCONABO] Order #: [id number] FUTURE XR CHEST 2V FRONTAL/LAT [[id number]] Order #: [id number] FUTURE Prescriptions as of 12/14/2022 - ALPRAZolam [...] Encounter Status:Closed by IRENA ROTH [facility]14/22 [facility] Office Visit (CARDMN ) CARITO RIOS ([id number]) 1980 F Date Time Provider Department 12/11/22 2:45 PM NETO DEMARCO During your visit today, we recorded the following information about you: Pulse Blood pressure Weight Height 60/minute 111/70 89.8 kg 1.753 m Neto Demarco MD 12/11/2022 4:12 PM Signed [facility] Department of Cardiovascular Medicine SECTION OF CARDIAC PACING and ELECTROPHYSIOLOGY OUTPATIENT VISIT DATE December 11, 2022 OUTPATIENT VISIT TYPE NEW PRIMARY CARE PHYSICIAN: Rock Dunbar MD [place], [place] [employer] Inspector Jass June MD [place], [place] CHIEF COMPLAINT: BiV ICD, ICD lead failure HISTORY OF PRESENT ILLNESS: Carito Rios is a 42 y/o female who presents for evaluation for lead malfunction. She has a history of NICM (iman LVEF reportedly 15% 2008), HF, s/p SPECIAL TESTER-D (2008), s/p multiple generator changes (4) most [...] to have RV lead noise with oversensing. [place] to be likely due to ICD coil [...] Laterality Date PAST SURGICAL HISTORY OF 2009 SPECIAL TESTER-D PAST SURGICAL HISTORY OF multiple device surgeries [...] the wor (more content not included)... Normal [facility] ECG COMPLETEon 12-11-2022 ECG COMPLETE Ventricular Rate : 6 0 BPM Atrial Rate : 60 BPM P-R Interval : 146 ms QRS Duration : 154 ms Q-T Interval : 460 ms QTC Calculation(Bazett) : 460 ms Calculated P [place] : 108 degrees Calculated R [place] : -125 degrees Calculated T [place] : 37 degrees AV DUAL-PACED RHYTHM BIVENTRICULAR PACEMAKER DETECTED ABNORMAL ECG Confirmed by MD GREWAL TAMANNA ([id number]) on 12/14/2022 4:37:01 PM NAME : CARITO RIOS PID : [id number] : 1980 Gender : Female Race : ORD : [id number] Procedure Date : Dec 11 2022 14:12:29 Edit Date : Dec 14 2022 16:37:03 Diagnosis: AV DUAL-PACED RHYTHM BIVENTRICULAR PACEMAKER DETECTED ABNORMAL ECG Confirmed by MD GREWAL TAMANNA ([id number]) on 12/14/2022 4:37:01 PM Test Reason : Location : [address] : [place] [id number] Overread By : MD GREWAL TAMANNA Edited By : MD GREWAL TAMANNA Referred By : , Acquired by : SEB SCHULZ Normal [facility] ICD CLINIC CHECKon 3 AV Delay Adaptive Paced Minimum (ms) 140 ms [facility] AV Delay Adaptive Rate Maximum (bpm) 130 {beats}/min [facility] AV Delay Adaptive Rate Minimum (bpm) 90 {beats}/min [facility] AV Delay Adaptive Sensed Minimum (ms) 90 ms [facility] AV Delay Adaptive Status Medium [facility] AV Delay Paced (ms) 90 ms [facility] AV Delay Sensed (ms) 90 ms [facility] Ricki LV Pacing Amplitude (volts) 3.5 V [facility] Ricki LV Pacing Polarity BI [facility] Ricki LV Pacing Pulse Width (ms) 0.5 ms [facility] Ricki RA Pacing Amplitude (volts) 2.0 V [facility] Ricki RA Pacing Polarity BI [facility] Ricki RA Pacing Pulse Width (ms) 0.5 ms [facility] Ricki RA Sensing Amplitude (mvolts) 0.3 mV [facility] Ricki RA Sensing Blanking Period (ms) 90 ms [facility] Ricki RA Sensing Polarity BI [facility] Ricki RA Sensing Refractory Period (ms) 190 ms [facility] Ricki RV Pacing Amplitude (volts) 2.375 [facility] Ricki RV Pacing Polarity BI [facility] Ricki RV Pacing Pulse Width (ms) 0.5 ms [facility] Ricki RV Sensing Amplitude (mvolts) 0.5 mV [facility] Ricki RV Sensing Blanking Period (ms) 52 ms [facility] Ricki RV Sensing Polarity BI [facility] ICD FastVT DetectionStatus DISABLED [facility] ICD-AMS EPISODES 170 {beats}/min [facility] ICD-ATP Episodes (Vent) 0 [facility] ICD-Ricki RV Sensing Refractory Period (ms) 220 ms [facility] ICD-Device Mfg STJ [facility] ICD-FALLBACKRATE_B PM 70 {beats}/min [facility] ICD-Hysteresis Rate Off [facility] ICD-LEADIMPEDANCEA TRIAL 325.0 ohm [facility] ICD-Percent Pacing (Atrial) 30.0 % [facility] ICD-Percent Pacing (Vent) 90.0 % [facility] ICD-PMT Intervention Atrial Pace [facility] ICD-PVC Intervention Off [facility] ICD-Rate Modulation Acceleration Reaction Fast [facility] ICD-Rate Modulation Deceleration Medium [facility] ICD-Rate Modulation [place] 8 [facility] ICD-Rate Modulation Threshold Auto (+0.0) [facility] ICD-Rhythm Sinus Rhythm [facility] ICD-Shocks Aborted (Vent) 0 [facility] NSE-[id number] ED 0 [facility] ICD-SHOCKSABORTED 0 [facility] ICD-SHOCKSDELIVERE DVENTRICULAR 0 [facility] ICD-Ventricular Fibrillation 0 [facility] Implant Date 09/21/2022 [facility] Implant Date 03/04/2009 [facility] Lead Impedance (LV) 187.5 ohm [facility] Lead Impedance (RV) 362.5 ohm [facility] Lead Impedance High Voltage 74.25 ohm [facility] Lead1 Mfg STJ [facility] Lead2 Mfg STJ [facility] Lead3 Mfg STJ [facility] Location RA [facility] Location RV [facility] Location LV [facility] Lower Rate (bpm) 60 {beats}/min [facility] Max Sensor Rate (bpm) 130 {beats}/min [facility] MDT_PROG_TACHY_ZON E_DETECTIONS_STATU S DISABLED [facility] Model 3357-40C Unify Assura [facility] Model 1888TC Tendril ST Optim C [facility] Model 7122 Durata [facility] Model [id number] [facility] Pacemaker Dependent? NO [facility] Pacing Mode DDDR [facility] Serial Number [id number] [facility] Serial Number [id number] [facility] Serial Number [id number] [facility] Serial Number [id number] [facility] Test Charge Time 7.875 [facility] Thresh LV Capture Amplitude (volts) 3 V [facility] Thresh LV Capture Duration (ms) 0.5 ms [facility] Thresh RA Capture Amplitude (volts) 1 V [facility] Thresh RA Capture Duration (ms) 0.5 ms [facility] Thresh RA Sensing Amplitude (mvolts) 2.1 mV [facility] Thresh RV Capture Amplitude (VOLTS) 2 V [facility] Thresh RV Capture Duration (MS) 0.5 ms [facility] Thresh RV Sensing Amplitude (MVOLTS) 6.7 mV [facility] Tracking Rate (bpm) 130 {beats}/min [facility] VF Zone Detection Interval 300 ms [facility] No Panel Informationon 12-11 BLANK _ [facility] Implant Date 02/13/2009 [facility] Tracy 11-24-2022 LIZET Telephone (CARDMN) CARITO RIOS ([id number]) 1980 F Date Time Provider Department 11/24/22 NETO DEMARCO During your visit today, we recorded the following information about you: Page [facility] [place], [place] 11/24/2022 4:01 PM Signed Documentation scanned into EP outside records database. Allergies As of Date: 11/24/2022 (Not on File) Date Reviewed: Never Reviewed Reason for Visit: Received Outside Medical Records [[id number]] Cmt: Referral AND MR Problem List As Of Date: 11/24/2022 (None) Encounter Status:Closed by PAGE MULLIGAN on 11/24/22 Normal [facility] CBC W MANUAL DIFFon 09-25-19 23 ATYPICAL LYMPH # Normal [facility] Comment on above: Performed By: #### B MP #### [facility] [address] [place] [address] Dr. Tien Osorio ATYPICAL LYMPH % Normal [facility] Comment on above: Performed By: #### B MP #### [facility] [address] [place] [address] Dr. Tien Osorio BAND # 0.0 103/ul Normal 0.0-0.[address] [facility] Comment on above: Performed By: #### B MP #### [facility] [address] [place] [address] Dr. Tien Osorio BAND % 0 % Normal 0-[address] [facility] Comment on above: Performed By: #### B MP #### [facility] [address] [place] [address] Dr. Tien Osorio BASOM # 0.00 103/ul Normal 0.00-0.[address] [facility] Comment on above: Performed By: #### B MP #### [facility] [address] [place] [address] Dr. Tien Osorio BASOM % 0.0 % Critically low 0.2-2.[address] [facility] Comment on above: Performed By: #### B MP #### [facility] [address] [place] [address] Dr. Tien Osorio BLAST # Normal [facility] Comment on above: Performed By: #### B MP #### [facility] [address] [place] [address] Dr. Tien Osorio BLAST % Normal [facility] Comment on above: Performed By: #### B MP #### [facility] [address] [place] [address] Dr. Tien Osorio CORRECTED WBC Normal 4.0-11.0 [facility] Comment on above: Performed By: #### B MP #### [facility] [address] [place] [address] Dr. Tien Osorio EOS # 0.08 103/ul Normal 0.00-0.[address] [facility] Comment on above: Performed By: #### B MP #### [facility] [address] [place] [address] Dr. Tien Osorio EOS% 2.0 % Normal 0.9-7.0 [facility] Comment on above: Performed By: #### B MP #### [facility] [address] [place] [address] Dr. Tien Osorio HCT 36.0 % Normal 36.0-48.[address] [facility] Comment on above: Performed By: #### B MP #### [facility] [address] [place] [address] Dr. Tien Osorio HGB 12.7 g/dl Normal 12.0-16.[address] [facility] Comment on above: Performed By: #### B MP #### [facility] [address] [place] [address] Dr. Tien Osorio LYMPHM # 0.41 103/ul Critically low 1.20-3.80 [facility] Comment on above: Performed By: #### B MP #### [facility] [address] [place] [address] Dr. Tien Osorio LYMPHM% 10.0 % Critically low 20.5-60.0 [facility] Comment on above: Performed By: #### B MP #### [facility] [address] [place] [address] Dr. Tien Osorio MCH 30.4 pg Normal 26.7-34.0 [facility] Comment on above: Performed By: #### B MP #### [facility] [address] [place] [address] Dr. Tien Osorio MCHC 35.3 g/dl Critically high 29.9-35.2 [facility] [place] [facility] Comment on above: Performed By: #### B MP #### [facility] [address] [place] [address] Dr. Tien Osorio MCV 86.1 fL Normal 81.0-99.[address] [facility] Comment on above: Performed By: #### B MP #### [facility] [address] [place] [address] Dr. Tien Osorio METAMYELOCYTE # Normal [facility] Comment on above: Performed By: #### B MP #### [facility] [address] [place] [address] Dr. Tien Osorio METAMYELOCYTE % Normal [facility] Comment on above: Performed By: #### B MP #### [facility] [address] [place] [address] Dr. Tien Osorio MONOM# 0.16 103/ul Critically low 0.30-0.[address] [facility] Comment on above: Performed By: #### B MP #### [facility] [address] [place] [address] Dr. Tien Osorio MONOM% 4.0 % Normal 1.7-12.[address] [facility] Comment on above: Performed By: #### B MP #### [facility] [address] [place] [address] Dr. Tien Osorio MPV 10.1 fL Normal 9.5-13.[address] [facility] Comment on above: Performed By: #### B MP #### [facility] [address] [place] [address] Dr. Tien Osorio MYELOCYTE # Normal [facility] Comment on above: Performed By: #### B MP #### [facility] [address] [place] [address] Dr. Tien Osorio MYELOCYTE % Normal [facility] Comment on above: Performed By: #### B MP #### [facility] [address] [place] [address] Dr. Tien Osorio NRBC Normal [facility] Comment on above: Performed By: #### B MP #### [facility] [address] [place] [address] [address] Tien Osorio PLT 192 103/ul Normal 150-450 [facility] Comment on above: Performed By: #### B MP #### [facility] [address] [place] [address] Dr. Tien Osorio RBC 4.18 106/ul Critically low 4.20-5.[address] [facility] Comment on above: Performed By: #### B MP #### [facility] [address] [place] [address] Dr. Tien Osorio RDW 12.9 % Normal 11.0-15.[address] [facility] Comment on above: Performed By: #### B MP #### [facility] [address] [place] [address] Dr. Tien Osorio SEG # 3.44 103/ul Normal 1.40-6.[address] [facility] Comment on above: Performed By: #### B MP #### [facility] [address] [place] [address] Dr. Tien Osorio SEG % 84.0 % Critically high 43.0-75.[address] [facility] Comment on above: Performed By: #### B MP #### [facility] [address] [place] [address] Dr. Tien Osorio WBC 4.1 103/ul Normal 4.0-11.[address] [facility] Comment on above: Performed By: #### B MP #### [facility] [address] [place] [address] Dr. Tien Osorio CTA CHEST WO W [...] account for patient's symptoms. Electronically authenticated by: AMDAOR ALICEA Date: 2022-09-24 13:35 Normal [facility] PROF CHEM 8 (BAS METB)on Anion gap [Moles/Vol] 11.7 mmol/L Normal [facility] Comment on above: Performed By: #### B MP #### [facility] [address] [place] [address] Dr. Tien Osorio Calcium [Mass/Vol] 8.0 mg/dL Critically low 8.5-10.1 [facility] Comment on above: Performed By: #### B MP #### [facility] [address] [place] [address] [address] Tien Osorio Chloride [Moles/Vol] 105 mmol/L Normal 98-[address] [facility] Comment on above: Performed By: #### B MP #### [facility] [address] [place] [address] [address] Tien Osorio CO2 [Moles/Vol] 25.0 mmol/L Normal 21.0-32.0 [facility] Comment on above: Performed By: #### B MP #### [facility] [address] [place] [address] [address] Tien Osorio Creatinine [Mass/Vol] 0.61 mg/dL Normal 0.55-1.[address] [facility] Comment on above: Performed By: #### B MP #### [facility] [address] [place] [address] [address] Tien Osorio EGFR-AF CENTRAL AFRICAN >60 Normal >=[address] [facility] Comment on above: Performed By: #### B MP #### [facility] [address] [place] [address] [address] Tien Osorio EGFR-NON AF CENTRAL AFRICAN >60 Normal >=[address] [facility] Comment on above: Performed By: #### B MP #### [facility] [address] [place] [address] [address] Tien Osorio Glucose [Mass/Vol] 116 mg/dL Critically high 74-106 [facility] Comment on above: Performed By: #### B MP #### [facility] [address] [place] [address] [address] Tien Osorio Potassium [Moles/Vol] 3.7 mmol/L Normal 3.5-5.[address] [facility] Comment on above: Performed By: #### B MP #### [facility] [address] [place] [address] Dr. Tien Osorio Sodium [Moles/Vol] 138 mmol/L Normal 136-[address] [facility] Comment on above: Performed By: #### B MP #### [facility] [address] [place] [address] Dr. Tien Osorio Urea nitrogen [Mass/Vol] 4.0 mg/dL Critically low 7.0-18.[address] [facility] Comment on above: Performed By: #### B MP #### [facility] [address] [place] [address] Dr. Tien Osorio Urea nitrogen/Creatinin e [Mass ratio] 6.6 mg/mg Normal [facility] Comment on above: Performed By: #### B MP #### [facility] [address] [place] [address] Dr. Tien Osorio CBC W MANUAL DIFFon 09-17-19 23 ATYPICAL LYMPH # Normal [facility] Comment on above: Performed By: #### C BCMAN #### [facility] [address] [place] [address] Dr. Tien Osorio ATYPICAL LYMPH % Normal [facility] Comment on above: Performed By: #### C BCMAN #### [facility] [address] [place] [address] Dr. Tien Osorio BAND # Normal 0.0-0.[address] [facility] Comment on above: Performed By: #### C LIDIA #### [facility] [address] [place] [address] Dr. Tien Osorio BAND % Normal 0-5 [facility] Comment on above: Performed By: #### C LIDIA #### [facility] [address] [place] [address] Dr. Tien Osorio BASOM # 0.00 103/ul Normal 0.00-0.[address] [facility] Comment on above: Performed By: #### C LIDIA #### [facility] [address] [place] [address] Dr. Tien Osorio BASOM % 0.0 % Critically low 0.2-2.[address] [facility] Comment on above: Performed By: #### C LIDIA #### [facility] [address] [place] [address] Dr. Tien Osorio BLAST # Normal [facility] Comment on above: Performed By: #### C LIDIA #### [facility] [address] [place] [address] Dr. Tien Osorio BLAST % Normal [facility] Comment on above: Performed By: #### C LIDIA #### [facility] [address] [place] [address] Dr. Tien Osorio CORRECTED WBC Normal 4.0-11.[address] [facility] Comment on above: Performed By: #### C LIDIA #### [facility] [address] [place] [address] Dr. Tien Osorio EOS # 0.05 103/ul Normal 0.00-0.70 [facility] Comment on above: Performed By: #### C LIDIA #### [facility] [address] [place] [address] Dr. Tien Osorio EOS% 1.0 % Normal 0.9-7.[address] [facility] Comment on above: Performed By: #### C LIDIA #### [facility] [address] [place] [address] Dr. Tien Osorio HCT 38.6 % Normal 36.0-48.0 [facility] Comment on above: Performed By: #### C LIDIA #### [facility] [address] [place] [address] [address] Tien Osorio HGB 13.8 g/dl Normal 12.0-16.[address] [facility] Comment on above: Performed By: #### C LIDIA #### [facility] [address] [place] [address] [address] Tien Osorio LYMPHM # 0.73 103/ul Critically low 1.20-3.[address] [facility] Comment on above: Performed By: #### C LIDIA #### [facility] [address] [place] [address] Dr. Tien Osorio LYMPHM% 15.0 % Critically low 20.5-60.[address] [facility] Comment on above: Performed By: #### C LIDIA #### [facility] [address] [place] [address] Dr. Tien Osorio MCH 30.8 pg Normal 26.7-34.[address] [facility] Comment on above: Performed By: #### C LIDIA #### [facility] [address] [place] [address] Dr. Tien Osorio MCHC 35.8 g/dl Critically high 29.9-35.[address] [facility] Comment on above: Performed By: #### C LIDIA #### [facility] [address] [place] [address] Dr. Tien Osorio MCV 86.2 fL Normal 81.0-99.[address] [facility] Comment on above: Performed By: #### C LIDIA #### [facility] [address] [place] [address] Dr. Tien Osorio METAMYELOCYTE # Normal [facility] Comment on above: Performed By: #### C LIDIA #### [facility] [address] [place] [address] Dr. Tien Osorio METAMYELOCYTE % Normal [facility] Comment on above: Performed By: #### C LIDIA #### [facility] [address] [place] [address] Dr. Tien Osorio MONOM# 0.39 103/ul Normal 0.30-0.[address] [facility] Comment on above: Performed By: #### C BCBRENDA #### [facility] [address] [place] [address] Dr. Tien Osorio MONOM% 8.0 % Normal 1.7-12.[address] [facility] Comment on above: Performed By: #### C LIDIA #### [facility] [address] [place] [address] Dr. Tien Osorio MPV 9.8 fL Normal 9.5-13.[address] [facility] Comment on above: Performed By: #### C BCBRENDA #### [facility] [address] [place] [address] Dr. Tien Osorio MYELOCYTE # Normal [facility] Comment on above: Performed By: #### C LIDIA #### [facility] [address] [place] [address] Dr. Tien Osorio MYELOCYTE % Normal [facility] Comment on above: Performed By: #### C LIDIA #### [facility] [address] [place] [address] Dr. Tien Osorio NRBC Normal [facility] Comment on above: Performed By: #### C LIDIA #### [facility] [address] [place] [address] Dr. Tien Osorio PLT 201 103/ul Normal 150-[address] [facility] Comment on above: Performed By: #### C LIDIA #### [facility] [address] [place] [address] Dr. Tien Osorio RBC 4.48 106/ul Normal 4.20-5.[address] [facility] Comment on above: Performed By: #### C LIDIA #### [facility] [address] [place] [address] Dr. Tien Osorio RDW 12.9 % Normal 11.0-15.[address] [facility] Comment on above: Performed By: #### C BCBRENDA #### [facility] [address] [place] [address] Dr. Tien Osorio SEG # 3.72 103/ul Normal 1.40-6.[address] [facility] Comment on above: Performed By: #### C BCMAN #### [facility] [address] [address] [address] Tien Osorio SEG % 76.0 % Critically high 43.0-75.[address] [facility] Comment on above: Performed By: #### C BCMAN #### [facility] [address] [place] [address] Dr. Tien Osorio WBC 4.9 103/ul Normal 4.0-11.[address] [facility] Comment on above: Performed By: #### C BCMAN #### [facility] [address] [place] [address] Dr. Tien Osorio PROF CHEM 8 (BAS METB)on Anion gap [Moles/Vol] 13.6 mmol/L Normal [facility] Comment on above: Performed By: #### B MP #### [facility] [address] [place] [address] Dr. Tien Osorio Calcium [Mass/Vol] 9.1 mg/dL Normal 8.5-10.[address] [facility] Comment on above: Performed By: #### B MP #### [facility] [address] [place] [address] Dr. Tien Osorio Chloride [Moles/Vol] 105 mmol/L Normal 98-107 [facility] Comment on above: Performed By: #### B MP #### [facility] [address] [place] [address] Dr. Tien Osorio CO2 [Moles/Vol] 27.6 mmol/L Normal 21.0-32.0 [facility] Comment on above: Performed By: #### B MP #### [facility] [address] [place] [address] Dr. Tien Osorio Creatinine [Mass/Vol] 0.72 mg/dL Normal 0.55-1.02 [facility] Comment on above: Performed By: #### B MP #### [facility] [address] [place] [address] Dr. Tien Osorio EGFR-AF CENTRAL AFRICAN >60 Normal >=60 [facility] Comment on above: Performed By: #### B MP #### [facility] [address] [address] [address] Tien Osorio EGFR-NON AF CENTRAL AFRICAN >60 Normal >=60 [facility] Comment on above: Performed By: #### B MP #### [facility] [address] [address] [address] Tien Osorio Glucose [Mass/Vol] 92 mg/dL Normal 74-106 [facility] Comment on above: Performed By: #### B MP #### [facility] [address] [address] [address] Tien Osorio Potassium [Moles/Vol] 4.2 mmol/L Normal 3.5-5.1 [facility] Comment on above: Performed By: #### B MP #### [facility] [address] [address] [address] Tien Osorio Sodium [Moles/Vol] 142 mmol/L Normal 136-145 [facility] Comment on above: Performed By: #### B MP #### [facility] [address] [address] [address] Tien Osorio Urea nitrogen [Mass/Vol] 8.0 mg/dL Normal 7.0-18.[address] [facility] Comment on above: Performed By: #### B MP #### [facility] [address] [address] [address] Tien Osorio Urea nitrogen/Creatinin e [Mass ratio] 11.1 mg/mg Normal [facility] Comment on above: Performed By: #### B MP #### [facility] [address] [address] [address] Tien Osorio ECHOCARDIO M/2D COMPLETEon 0 08-31-2022 ECHOCARDIO M/2D COMPLETE Patient: CARITO RIOS Exam Date: 08/31/2022 : 1980 Gender:F Ordering : EVELYN HERNANDEZS Admission #: [id number] Family : Order #: [id number] CLICK HERE TO VIEW EXAM ECHOCARDIOGRAM REPORT [...] M.D. on 09/01/2022 at 11:58 Normal [facility] VIT D 25-OH L[facility]ORPon 2021 Vitamin D, 25-Hydroxy 14.0 ng/mL Critically low 30.0-100.0 [facility] Comment on above: Result Comment: Cecilia min D deficiency has been defined by the [place] [employer] and an Endocrine Society practice guideline as a level of serum 25-OH vitamin D less than 20 ng/mL (1,2). The Endocrine Society went on to further define vitamin D insufficiency as a level between 21 and 29 ng/mL (2). 1. IOM ([place] [employer]). 2010. Dietary reference intakes for calcium and D. [place]: The National Academies Press. 2. Joel MF, Abi NC, Isaiah-Mino SUMMERS, et al. Evaluation, treatment, and prevention of vitamin D deficiency: an Endocrine Society clinical practice guideline. JCEM. 2010; 96(7):1911-30. Performed By: #### B MP #### [facility] [address] [place] [address] Dr. Tien Osorio CBC W MANUAL DIFFon 02-17-20 22 ATYPICAL LYMPH # Normal [facility] Comment on above: Performed By: #### B MP #### [facility] [address] [place] [address] Dr. Tien Osorio ATYPICAL LYMPH % Normal [facility] Comment on above: Performed By: #### B MP #### [facility] [address] [place] [address] Dr. Tien Osorio BAND # 0.0 103/ul Normal 0.0-0.3 [facility] Comment on above: Performed By: #### B MP #### [facility] [address] [place] [address] Dr. Tien Osorio BAND % 0 % Normal 0-[address] [facility] Comment on above: Performed By: #### B MP #### [facility] [address] [place] [address] Dr. Tien Osorio BASOM # 0.00 103/ul Normal 0.00-0.[address] [facility] Comment on above: Performed By: #### B MP #### [facility] [address] [place] [address] Dr. Tien Osorio BASOM % 0.0 % Critically low 0.2-2.[address] [facility] Comment on above: Performed By: #### B MP #### [facility] [address] [place] [address] Dr. Tien Osorio BLAST # Normal [facility] Comment on above: Performed By: #### B MP #### [facility] [address] [place] [address] Dr. Tien Osorio BLAST % Normal [facility] Comment on above: Performed By: #### B MP #### [facility] [address] [place] [address] Dr. Tien Osorio CORRECTED WBC Normal 4.0-11.0 [facility] Comment on above: Performed By: #### B MP #### [facility] [address] [place] [address] Dr. Tien Osorio EOS # 0.05 103/ul Normal 0.00-0.70 [facility] Comment on above: Performed By: #### B MP #### [facility] [address] [place] [address] Dr. Tien Osorio EOS% 1.0 % Normal 0.9-7.0 [facility] Comment on above: Performed By: #### B MP #### [facility] [address] [place] [address] Dr. Tien Osorio HCT 37.4 % Normal 36.0-48.0 [facility] Comment on above: Performed By: #### B MP #### [facility] [address] [place] [address] Dr. Tien Osorio HGB 12.5 g/dl Normal 12.0-16.0 [facility] Comment on above: Performed By: #### B MP #### [facility] [address] [place] [address] Dr. Tien Osorio LYMPHM # 0.41 103/ul Critically low 1.20-3.80 [facility] Comment on above: Performed By: #### B MP #### [facility] [address] [place] [address] Dr. Tien Osorio LYMPHM% 8.0 % Critically low 20.5-60.[address] [facility] Comment on above: Performed By: #### B MP #### [facility] [address] [place] [address] Dr. Tien Osorio MCH 29.8 pg Normal 26.7-34.[address] [facility] Comment on above: Performed By: #### B MP #### [facility] [address] [place] [address] Dr. Tien Osorio MCHC 33.4 g/dl Normal 29.9-35.2 [facility] Comment on above: Performed By: #### B MP #### [facility] [address] [place] [address] Dr. Tien Osorio MCV 89.3 fL Normal 81.0-99.[address] [facility] Comment on above: Performed By: #### B MP #### [facility] [address] [place] [address] Dr. Tien Osorio METAMYELOCYTE # Normal [facility] Comment on above: Performed By: #### B MP #### [facility] [address] [address] [address] Tien Osorio METAMYELOCYTE % Normal [facility] Comment on above: Performed By: #### B MP #### [facility] [address] [address] [address] Tien Osorio MONOM# 0.15 103/ul Critically low 0.30-0.[address] [facility] Comment on above: Performed By: #### B MP #### [facility] [address] [place] [address] Dr. Tien Osorio MONOM% 3.0 % Normal 1.7-12.[address] [facility] Comment on above: Performed By: #### B MP #### [facility] [address] [place] [address] Dr. Tien Osorio MPV 10.7 fL Normal 9.5-13.[address] [facility] Comment on above: Performed By: #### B MP #### [facility] [address] [place] [address] Dr. Tien Osorio MYELOCYTE # Normal [facility] Comment on above: Performed By: #### B MP #### [facility] [address] [place] [address] Dr. Tien Osorio MYELOCYTE % Normal [facility] Comment on above: Performed By: #### B MP #### [facility] [address] [place] [address] Dr. Tien Osorio NRBC Normal [facility] Comment on above: Performed By: #### B MP #### [facility] [address] [place] [address] Dr. Tien Osorio PLT 166 103/ul Normal 150-450 [facility] Comment on above: Performed By: #### B MP #### [facility] [address] [place] [address] Dr. Tien Osorio RBC 4.19 106/ul Critically low 4.20-5.[address] [facility] Comment on above: Performed By: #### B MP #### [facility] [address] [address] [address] Tien Osorio RDW 14.6 % Normal 11.0-15.[address] [facility] Comment on above: Performed By: #### B MP #### [facility] [address] [place] [address] Dr. Tien Osorio SEG # 4.49 103/ul Normal 1.40-6.[address] [facility] Comment on above: Performed By: #### B MP #### [facility] [address] [place] [address] Dr. Tien Osorio SEG % 88.0 % Critically high 43.0-75.[address] [facility] Comment on above: Performed By: #### B MP #### [facility] [address] [place] [address] Dr. Tien Osorio WBC 5.1 103/ul Normal 4.0-11.[address] [facility] Comment on above: Performed By: #### B MP #### [facility] [address] [place] [address] Dr. Tien Osorio FREE T3on 02-16-2022 FREE T3 1.83 pg/mlL Critically low 2.18-3.[address] [facility] Comment on above: Performed By: #### B MP, LIPID, FT3, LIVER, TSH #### [facility] [address] [place] [address] Dr. Tien Osorio FREE T4on 02-16-2022 Free T4 [Mass/Vol] 1.08 ng/dL Normal 0.76-1.[address] [facility] Comment on above: Performed By: #### B MP #### [facility] [address] [place] [address] Dr. Tien Osorio GLYCOHEMOGLOBIN A1Con 2021 ADA RECOMMENDATION SEE BELOW Normal [facility] Comment on above: Result Comment: ADA RECOMMENDED LIMIT 4.0 - 6.0 ADA THERAPEUTIC TARGET < 7.0 ACTION SUGGESTED > 7.0 Performed By: #### B MP, LIPID, FT3, LIVER, TSH #### [facility] [address] [place] [address] Dr. Tien Osorio Glucose [Mass/Vol] 82 mg/dL Normal [facility] Comment on above: Performed By: #### B MP, LIPID, FT3, LIVER, TSH #### [facility] [address] [place] [address] Dr. Tien Osorio HbA1c (Bld) [Mass fraction] 4.5 % Normal 4.5-6.[address] [facility] Comment on above: Performed By: #### B MP, LIPID, FT3, LIVER, TSH #### [facility] [address] [place] [address] Dr. Tien Osorio LIPID PROFILEon 02-16-2022 CHOL-HDL RATIO NORM SEE BELOW Normal [facility] Comment on above: Result Comment: 3.3 - 4.4 LOW RISK 4.4 - 7.1 AVERAGE RISK 7.1 - 11.0 MODERATE RISK >11.0 HIGH RISK Performed By: #### B MP, LIPID, FT3, LIVER, TSH #### [facility] [address] [place] [address] Dr. Tien Osorio Cholesterol [Mass/Vol] 151 mg/dL Normal <=[address] [facility] Comment on above: Performed By: #### B MP, LIPID, FT3, LIVER, TSH #### [facility] [address] [place] [address] Dr. Tien Osorio Cholesterol in HDL [Mass/Vol] 60 mg/dL Normal 40-[address] [facility] Comment on above: Performed By: #### B MP, LIPID, FT3, LIVER, TSH #### [facility] [address] [place] [address] Dr. Tien Osorio Cholesterol in LDL [Mass/Vol] 77.6 mg/dL Normal [facility] Comment on above: Performed By: #### B MP, LIPID, FT3, LIVER, TSH #### [facility] [address] [place] [address] Dr. Tien Osorio Cholesterol.total/ Cholesterol in HDL [Mass ratio] 2.5 {ratio} Normal [facility] Comment on above: Performed By: #### B MP, LIPID, FT3, LIVER, TSH #### [facility] [address] [place] [address] Dr. Tien Osorio HDL NORMAL > or = 60 mg/dl - LO W CARDIOVASCULAR RISK <40 mg/dl - HIGH CARDIOVASCULAR RISK Normal [facility] Comment on above: Performed By: #### B MP, LIPID, FT3, LIVER, TSH #### [facility] [address] [place] [address] Dr. Tien Osorio LDL CALC NORMAL SEE BELOW Normal [facility] Comment on above: Result Comment: <100 mg/dl OPTIMAL 100 - 129 mg/dl NEAR OR ABOVE OPTIMAL 130 - 159 mg/dl BORDERLINE HIGH 160 - 189 mg/dl HIGH >190 mg/dl VERY HIGH Performed By: #### B MP, LIPID, FT3, LIVER, TSH #### [facility] [address] [place] [address] Dr. Tien Osorio Triglyceride [Mass/Vol] 67 mg/dL Normal <=[address] [facility] Comment on above: Performed By: #### B MP, LIPID, FT3, LIVER, TSH #### [facility] [address] [place] [address] Dr. Tien Osorio VLDL CALC 13.4 mg/dL Normal [facility] Comment on above: Performed By: #### B MP, LIPID, FT3, LIVER, TSH #### [facility] [address] [place] [address] Dr. Tien Osorio LIVER PROFILEon 02-16-2022 Albumin [Mass/Vol] 3.8 g/dL Normal 3.4-5.[address] [facility] Comment on above: Performed By: #### B MP, LIPID, FT3, LIVER, TSH #### [facility] [address] [place] [address] Dr. Tien Osorio Albumin/Globulin [Mass ratio] 1.2 {ratio} Normal [facility] Comment on above: Performed By: #### B MP, LIPID, FT3, LIVER, TSH #### [facility] [address] [place] [address] Dr. Tien Osorio ALP [Catalytic activity/Vol] 71 U/L Normal 46-[address] [facility] Comment on above: Performed By: #### B MP, LIPID, FT3, LIVER, TSH #### [facility] [address] [place] [address] Dr. Tien Osorio ALT [Catalytic activity/Vol] 18 U/L Normal 14-59 [facility] Comment on above: Performed By: #### B MP, LIPID, FT3, LIVER, TSH #### [facility] [address] [place] [address] Dr. Tien Osorio AST [Catalytic activity/Vol] 16 U/L Normal 15-37 [facility] Comment on above: Performed By: #### B MP, LIPID, FT3, LIVER, TSH #### [facility] [address] [place] [address] Dr. Tien Osorio BILI, CONJUGATED 0.1 mg/dL Normal 0.0-0.[address] [facility] Comment on above: Performed By: #### B MP, LIPID, FT3, LIVER, TSH #### [facility] [address] [place] [address] Dr. Tien Osorio Bilirubin [Mass/Vol] 0.4 mg/dL Normal 0.2-1.[address] [facility] Comment on above: Performed By: #### B MP, LIPID, FT3, LIVER, TSH #### [facility] [address] [place] [address] Dr. Tien Osorio Globulin (S) [Mass/Vol] 3.3 g/dL Normal [facility] Comment on above: Performed By: #### B MP, LIPID, FT3, LIVER, TSH #### [facility] [address] [place] [address] Dr. Tien Osorio Protein [Mass/Vol] 7.1 g/dL Normal 6.4-8.[address] [facility] Comment on above: Performed By: #### B MP, LIPID, FT3, LIVER, TSH #### [facility] [address] [place] [address] Dr. Tien Osorio PROF CHEM 8 (BAS METB)on Anion gap [Moles/Vol] 12.1 mmol/L Normal [facility] Comment on above: Performed By: #### B MP, LIPID, FT3, LIVER, TSH #### [facility] [address] [place] [address] Dr. Tien Osorio Calcium [Mass/Vol] 8.4 mg/dL Critically low 8.5-10.1 [facility] Comment on above: Performed By: #### B MP, LIPID, FT3, LIVER, TSH #### [facility] [address] [address] [address] Tien Osorio Chloride [Moles/Vol] 106 mmol/L Normal 98-107 [facility] Comment on above: Performed By: #### B MP, LIPID, FT3, LIVER, TSH #### [facility] [address] [place] [address] Dr. Tien Osorio CO2 [Moles/Vol] 25.7 mmol/L Normal 21.0-32.[address] [facility] Comment on above: Performed By: #### B MP, LIPID, FT3, LIVER, TSH #### [facility] [address] [place] [address] Dr. Tien Osorio Creatinine [Mass/Vol] 0.56 mg/dL Normal 0.55-1.[address] [facility] Comment on above: Performed By: #### B MP, LIPID, FT3, LIVER, TSH #### [facility] [address] [place] [address] Dr. Tien Osorio EGFR-AF CENTRAL AFRICAN >60 Normal >=[address] [facility] Comment on above: Performed By: #### B MP, LIPID, FT3, LIVER, TSH #### [facility] [address] [place] [address] Dr. Tien Osorio EGFR-NON AF CENTRAL AFRICAN >60 Normal >=[address] [facility] Comment on above: Performed By: #### B MP, LIPID, FT3, LIVER, TSH #### [facility] [address] [place] [address] Dr. Tien Osorio Glucose [Mass/Vol] 79 mg/dL Normal 74-[address] [facility] Comment on above: Performed By: #### B MP, LIPID, FT3, LIVER, TSH #### [facility] [address] [place] [address] Dr. Tien Osorio Potassium [Moles/Vol] 3.8 mmol/L Normal 3.5-5.[address] [facility] Comment on above: Performed By: #### B MP, LIPID, FT3, LIVER, TSH #### [facility] [address] [place] [address] Dr. Tien Osorio Sodium [Moles/Vol] 140 mmol/L Normal 136-145 [facility] Comment on above: Performed By: #### B MP, LIPID, FT3, LIVER, TSH #### [facility] [address] [place] [address] Dr. Tien Osorio Urea nitrogen [Mass/Vol] 9.0 mg/dL Normal 7.0-18.[address] [facility] Comment on above: Performed By: #### B MP, LIPID, FT3, LIVER, TSH #### [facility] [address] [place] [address] Dr. Tien Osorio Urea nitrogen/Creatinin e [Mass ratio] 16.1 mg/mg Normal [facility] Comment on above: Performed By: #### B MP, LIPID, FT3, LIVER, TSH #### [facility] [address] [place] [address] Dr. Tien Osorio TSHon 02-16-2022 TSH 1.079 uIU/mL Normal 0.358-3.[address] [facility] Comment on above: Performed By: #### B MP, LIPID, FT3, LIVER, TSH #### [facility] [address] [place] [address] Dr. Tien Osorio CBC AUTO DIFFon 11-18-2021 BASO # 0.0 103/ul Normal 0.0-0.[address] [facility] Comment on above: Performed By: #### B MP #### [facility] [address] [place] [address] Dr. Tien Osorio Basophils/100 WBC (Bld) 0.5 % Normal 0.2-2.[address] [facility] Comment on above: Performed By: #### B MP #### [facility] [address] [place] [address] Dr. Tien Osorio EO # 0.1 103/ul Normal 0.0-0.7 [facility] Comment on above: Performed By: #### B MP #### [facility] [address] [place] [address] Dr. Tien Osorio Eosinophils/100 WBC (Bld) 2.4 % Normal 0.9-7.[address] [facility] Comment on above: Performed By: #### B MP #### [facility] [address] [place] [address] Dr. Tien Osorio Erythrocyte distribution width (RBC) [Ratio] 14.3 % Normal 11.0-15.0 [facility] Comment on above: Performed By: #### B MP #### [facility] [address] [place] [address] Dr. Tien Osorio Hematocrit (Bld) [Volume fraction] 35.4 % Critically low 36.0-48.[address] [facility] Comment on above: Performed By: #### B MP #### [facility] [address] [place] [address] Dr. Tien Osorio Hemoglobin (Bld) [Mass/Vol] 12.0 g/dL Normal 12.0-16.[address] [facility] Comment on above: Performed By: #### B MP #### [facility] [address] [place] [address] Dr. Tien Osorio IG # 0.05 10e3/ul Critically high 0.00-0.[address] [facility] Comment on above: Performed By: #### B MP #### [facility] [address] [place] [address] Dr. Tien Osorio IG % 1.3 % Critically high 0.0-0.[address] [facility] Comment on above: Performed By: #### B MP #### [facility] [address] [place] [address] Dr. Tien Osorio LYMPH # 0.6 103/ul Critically low 1.2-3.8 [facility] Comment on above: Performed By: #### B MP #### [facility] [address] [place] [address] Dr. Tien Osorio Lymphocytes/100 WBC (Bld) 16.8 % Critically low 20.5-60.[address] [facility] Comment on above: Performed By: #### B MP #### [facility] [address] [place] [address] Dr. Tien Osorio MANUAL DIFF REQ NO Normal [facility] Comment on above: Performed By: #### B MP #### [facility] [address] [place] [address] Dr. Tien Osorio MCH (RBC) [Entitic mass] 29.9 pg Normal 26.7-34.[address] [facility] Comment on above: Performed By: #### B MP #### [facility] [address] [place] [address] Dr. Tien Osorio MCHC (RBC) [Mass/Vol] 33.9 g/dL Normal 29.9-35.[address] [facility] Comment on above: Performed By: #### B MP #### [facility] [address] [place] [address] Dr. Tien Osorio MCV (RBC) [Entitic vol] 88.3 fL Normal 81.0-99.[address] [facility] Comment on above: Performed By: #### B MP #### [facility] [address] [place] [address] Dr. Tien Osorio MONO # 0.4 103/ul Normal 0.3-0.[address] [facility] Comment on above: Performed By: #### B MP #### [facility] [address] [place] [address] Dr. Tien Osorio Monocytes/100 WBC (Bld) 11.7 % Normal 1.7-12.[address] [facility] Comment on above: Performed By: #### B MP #### [facility] [address] [place] [address] Dr. Tien Osorio NEUT # 2.5 103/ul Normal 1.4-6.5 [facility] Comment on above: Performed By: #### B MP #### [facility] [address] [place] [address] Dr. Tien Osorio Neutrophils/100 WBC (Bld) 67.3 % Normal 43.0-75.[address] [facility] Comment on above: Performed By: #### B MP #### [facility] [address] [address] [address] Tien Osorio Platelet mean volume (Bld) [Entitic vol] 9.4 fL Critically low 9.5-13.[address] [facility] Comment on above: Performed By: #### B MP #### [facility] [address] [address] [address] Tien Osorio PLT 216 103/ul Normal 150-450 [facility] Comment on above: Performed By: #### B MP #### [facility] [address] [address] [address] Tien Osorio RBC 4.01 106/ul Critically low 4.20-5.[address] [facility] Comment on above: Performed By: #### B MP #### [facility] [address] [place] [address] Dr. Tien Osorio WBC 3.8 103/ul Critically low 4.0-11.[address] [facility] Comment on above: Performed By: #### B MP #### [facility] [address] [place] [address] Dr. Tien Osorio PROF CHEM 8 (BAS METB)on Anion gap [Moles/Vol] 10.4 mmol/L Normal [facility] Comment on above: Performed By: #### B MP #### [facility] [address] [place] [address] Dr. Tien Osorio Calcium [Mass/Vol] 8.7 mg/dL Normal 8.5-10.[address] [facility] Comment on above: Performed By: #### B MP #### [facility] [address] [place] [address] Dr. Tien Osorio Chloride [Moles/Vol] 105 mmol/L Normal 98-107 [facility] Comment on above: Performed By: #### B MP #### [facility] [address] [place] [address] Dr. Tien Osorio CO2 [Moles/Vol] 25.2 mmol/L Normal 21.0-32.[address] [facility] Comment on above: Performed By: #### B MP #### [facility] [address] [address] [address] Tien Osorio Creatinine [Mass/Vol] 0.72 mg/dL Normal 0.55-1.[address] [facility] Comment on above: Performed By: #### B MP #### [facility] [address] [place] [address] Dr. Tien Osorio EGFR-AF CENTRAL AFRICAN >60 Normal >=60 [facility] Comment on above: Performed By: #### B MP #### [facility] [address] [address] [address] Tien Osorio EGFR-NON AF CENTRAL AFRICAN >60 Normal >=60 [facility] Comment on above: Performed By: #### B MP #### [facility] [address] [place] [address] Dr. Tien Osorio Glucose [Mass/Vol] 98 mg/dL Normal 74-[address] [facility] Comment on above: Performed By: #### B MP #### [facility] [address] [place] [address] Dr. Tien Osorio Potassium [Moles/Vol] 3.6 mmol/L Normal 3.5-5.1 [facility] Comment on above: Performed By: #### B MP #### [facility] [address] [place] [address] Dr. Tien Osorio Sodium [Moles/Vol] 137 mmol/L Normal 136-145 [facility] Comment on above: Performed By: #### B MP #### [facility] [address] [place] [address] Dr. Tien Osorio Urea nitrogen [Mass/Vol] 7.0 mg/dL Normal 7.0-18.0 [facility] Comment on above: Performed By: #### B MP #### [facility] [address] [place] [address] Dr. Tien Osorio Urea nitrogen/Creatinin e [Mass ratio] 9.7 mg/mg Normal [facility] Comment on above: Performed By: #### B MP #### [facility] [address] [place] [address] Dr. Tien Osorio CBC AUTO DIFFon 11-10-2021 BASO # 0.0 103/ul Normal 0.0-0.1 [facility] Comment on above: Performed By: #### B MP #### [facility] [address] [place] [address] Dr. Tien Osorio Basophils/100 WBC (Bld) 0.6 % Normal 0.2-2.0 [facility] Comment on above: Performed By: #### B MP #### [facility] [address] [place] [address] Dr. Tien Osorio EO # 0.1 103/ul Normal 0.0-0.7 [facility] Comment on above: Performed By: #### B MP #### [facility] [address] [place] [address] Dr. Tien Osorio Eosinophils/100 WBC (Bld) 2.0 % Normal 0.9-7.0 [facility] Comment on above: Performed By: #### B MP #### [facility] [address] [place] [address] Dr. Tien Osorio Erythrocyte distribution width (RBC) [Ratio] 13.7 % Normal 11.0-15.0 [facility] Comment on above: Performed By: #### B MP #### [facility] [address] [place] [address] Dr. Tien Osorio Hematocrit (Bld) [Volume fraction] 38.1 % Normal 36.0-48.0 [facility] Comment on above: Performed By: #### B MP #### [facility] [address] [place] [address] Dr. Tien Osorio Hemoglobin (Bld) [Mass/Vol] 12.6 g/dL Normal 12.0-16.0 [facility] Comment on above: Performed By: #### B MP #### [facility] [address] [place] [address] Dr. Tien Osorio IG # 0.02 10e3/ul Normal 0.00-0.03 [facility] Comment on above: Performed By: #### B MP #### [facility] [address] [place] [address] Dr. Tien Osorio IG % 0.6 % Critically high 0.0-0.[address] [facility] Comment on above: Performed By: #### B MP #### [facility] [address] [place] [address] Dr. Tien Osorio LYMPH # 0.6 103/ul Critically low 1.2-3.[address] [facility] Comment on above: Performed By: #### B MP #### [facility] [address] [place] [address] Dr. Tien Osorio Lymphocytes/100 WBC (Bld) 16.3 % Critically low 20.5-60.[address] [facility] Comment on above: Performed By: #### B MP #### [facility] [address] [place] [address] Dr. Tien Osorio MANUAL DIFF REQ NO Normal [facility] Comment on above: Performed By: #### B MP #### [facility] [address] [place] [address] Dr. Tien Osorio MCH (RBC) [Entitic mass] 29.9 pg Normal 26.7-34.[address] [facility] Comment on above: Performed By: #### B MP #### [facility] [address] [place] [address] Dr. Tien Osorio MCHC (RBC) [Mass/Vol] 33.1 g/dL Normal 29.9-35.[address] [facility] Comment on above: Performed By: #### B MP #### [facility] [address] [place] [address] Dr. Tien Osorio MCV (RBC) [Entitic vol] 90.3 fL Normal 81.0-99.0 [facility] Comment on above: Performed By: #### B MP #### [facility] [address] [place] [address] Dr. Tien Osorio MONO # 0.4 103/ul Normal 0.3-0.8 [facility] Comment on above: Performed By: #### B MP #### [facility] [address] [place] [address] Dr. Tien Osorio Monocytes/100 WBC (Bld) 10.0 % Normal 1.7-12.[address] [facility] Comment on above: Performed By: #### B MP #### [facility] [address] [place] [address] Dr. Tien Osorio NEUT # 2.5 103/ul Normal 1.4-6.[address] [facility] Comment on above: Performed By: #### B MP #### [facility] [address] [place] [address] Dr. Tien Osorio Neutrophils/100 WBC (Bld) 70.5 % Normal 43.0-75.[address] [facility] Comment on above: Performed By: #### B MP #### [facility] [address] [place] [address] Dr. Tien Osorio Platelet mean volume (Bld) [Entitic vol] 9.6 fL Normal 9.5-13.[address] [facility] Comment on above: Performed By: #### B MP #### [facility] [address] [place] [address] Dr. Tien Osorio PLT 180 103/ul Normal 150-450 [facility] Comment on above: Performed By: #### B MP #### [facility] [address] [place] [address] Dr. Tien Osorio RBC 4.22 106/ul Normal 4.20-5.40 [facility] Comment on above: Performed By: #### B MP #### [facility] [address] [place] [address] Dr. Tien Osorio WBC 3.5 103/ul Critically low 4.0-11.[address] [facility] Comment on above: Performed By: #### B MP #### [facility] [address] [place] [address] Dr. Tien Osorio CRPon 11-10-2021 CRP 5.9 mg/dL Critically high <=1.[address] [facility] Comment on above: Performed By: #### B MP, LIPID, FT3, LIVER, TSH #### [facility] [address] [place] [address] HEAD WO CONon [...] AMADOR ALICEA Date: 2021-11-10 14:04 Normal [facility] Covid-19 PCR (CVDTBH)on 10-20 SARS-CoV-2 (COVID-19) RNA BECKY+probe Ql (Unsp spec) Not detected Normal NOT DETECTED [facility] Comment on above: Result Comment: This test is not yet approved or cleared by the [place] FDA. When there are no FDA-approved or cleared tests available, and other criteria are met, FDA can make tests available under an emergency access mechanism called an Emergency Use Authorization (EUA). The EUA for this test is supported by the Utilization Coordinator of Health and Human Service's (HHS's) declaration [...] B MP, LIPID, FT3, LIVER, TSH #### [facility] [address] [place] [address] Dr. Tien Osorio INFLUENZA A AND B AGon 11-10 INFLUENZA A AG Negative Normal NEGATIVE SEE COMMENT [facility] Comment on above: Performed By: #### I NFLUAB #### [facility] [address] [place] [address] Dr. Tien Osorio INFLUENZA B AG Negative Normal NEGATIVE SEE COMMENT [facility] Comment on above: Performed By: #### I NFLUAB #### [facility] [address] [place] [address] Dr. Tien Osorio INTERNAL CONTROLS Within Normal Limits Normal Wi thin Normal Limits [facility] Comment on above: Performed By: #### I NFLUAB #### [facility] [address] [place] [address] Dr. Tien Osorio PROF 14(COMP METB)on 022 Albumin [Mass/Vol] 3.6 g/dL Normal 3.4-5.[address] [facility] Comment on above: Performed By: #### B MP #### [facility] [address] [place] [address] Dr. Tien Osorio Albumin/Globulin [Mass ratio] 0.9 {ratio} Normal [facility] Comment on above: Performed By: #### B MP #### [facility] [address] [place] [address] Dr. Tien Osorio ALP [Catalytic activity/Vol] 230 U/L Critically high 46-[address] [facility] Comment on above: Performed By: #### B MP #### [facility] [address] [place] [address] Dr. Tien Osorio ALT [Catalytic activity/Vol] 53 U/L Normal 14-59 [facility] Comment on above: Performed By: #### B MP #### [facility] [address] [place] [address] Dr. Tien Osorio Anion gap [Moles/Vol] 11.6 mmol/L Normal [facility] Comment on above: Performed By: #### B MP #### [facility] [address] [place] [address] Dr. Tien Osorio AST [Catalytic activity/Vol] 33 U/L Normal 15-[address] [facility] Comment on above: Performed By: #### B MP #### [facility] [address] [address] [address] Tien Osorio Bilirubin [Mass/Vol] 0.4 mg/dL Normal 0.2-1.[address] [facility] Comment on above: Performed By: #### B MP #### [facility] [address] [address] [address] Tien Osorio Calcium [Mass/Vol] 8.4 mg/dL Critically low 8.5-10.1 [facility] Comment on above: Performed By: #### B MP #### [facility] [address] [address] [address] Tien Osorio Chloride [Moles/Vol] 104 mmol/L Normal 98-[address] [facility] Comment on above: Performed By: #### B MP #### [facility] [address] [address] [address] Tien Osorio CO2 [Moles/Vol] 24.0 mmol/L Normal 21.0-32.[address] [facility] Comment on above: Performed By: #### B MP #### [facility] [address] [address] [address] Tien Osorio Creatinine [Mass/Vol] 0.69 mg/dL Normal 0.55-1.[address] [facility] Comment on above: Performed By: #### B MP #### [facility] [address] [address] [address] Tien Osorio EGFR-AF CENTRAL AFRICAN >60 Normal >=60 [facility] Comment on above: Performed By: #### B MP #### [facility] [address] [address] [address] Tien Osorio EGFR-NON AF CENTRAL AFRICAN >60 Normal >=[address] [facility] Comment on above: Performed By: #### B MP #### [facility] [address] [address] [address] Tien Osorio Globulin (S) [Mass/Vol] 3.8 g/dL Normal [facility] Comment on above: Performed By: #### B MP #### [facility] [address] [address] [address] Tien Osorio Glucose [Mass/Vol] 139 mg/dL Critically high 74-106 [facility] Comment on above: Performed By: #### B MP #### [facility] [address] [address] [address] Tien Osorio Potassium [Moles/Vol] 3.6 mmol/L Normal 3.5-5.[address] [facility] Comment on above: Performed By: #### B MP #### [facility] [address] [address] [address] Tien Osorio Protein [Mass/Vol] 7.4 g/dL Normal 6.4-8.[address] [facility] Comment on above: Performed By: #### B MP #### [facility] [address] [address] [address] Tien Osorio Sodium [Moles/Vol] 136 mmol/L Normal 136-[address] [facility] Comment on above: Performed By: #### B MP #### [facility] [address] [address] [address] Tien Osorio Urea nitrogen [Mass/Vol] 9.0 mg/dL Normal 7.0-18.[address] [facility] Comment on above: Performed By: #### B MP #### [facility] [address] [address] [address] Tien Osorio Urea nitrogen/Creatinin e [Mass ratio] 13.0 mg/mg Normal [facility] Comment on above: Performed By: #### B MP #### [facility] [address] [address] [address] Tien Osorio SED RATE WESTERGRENon 2021 SED RATE 43 mm/hr Critically high <=20 [facility] Comment on above: Performed By: #### B MP #### [facility] [address] [address] [address] Tien Osorio TSHon 11-10-2021 TSH 2.715 uIU/mL Normal 0.358-3.[address] [facility] Comment on above: Performed By: #### B MP, LIPID, FT3, LIVER, TSH #### [facility] [address] [place] [address] Dr. Tien Osorio TSH RANGE SEE BELOW Normal [facility] Comment on above: Result Comment: <0.3 4 UIU/ml HYPERTHYROID 0.34-5.60 UIU/ml EUTHYROID >5.60 UIU/ml HYPOTHYROID Performed By: #### B MP, LIPID, FT3, LIVER, TSH #### [facility] [address] [place] [address] Dr. Tien Osorio CBC W MANUAL DIFFon 10-24-19 22 ATYPICAL LYMPH # Normal [facility] Comment on above: Performed By: #### B MP #### [facility] [address] [place] [address] Dr. Tien Osorio ATYPICAL LYMPH % Normal [facility] Comment on above: Performed By: #### B MP #### [facility] [address] [place] [address] Dr. Tien Osorio BAND # 0.1 103/ul Normal 0.0-0.[address] [facility] Comment on above: Performed By: #### B MP #### [facility] [address] [place] [address] Dr. Tien Osorio BAND % 2 % Normal 0-[address] [facility] Comment on above: Performed By: #### B MP #### [facility] [address] [place] [address] Dr. Tien Osorio BASOM # 0.00 103/ul Normal 0.00-0.10 [facility] Comment on above: Performed By: #### B MP #### [facility] [address] [place] [address] Dr. Tien Osorio BASOM % 0.0 % Critically low 0.2-2.[address] [facility] Comment on above: Performed By: #### B MP #### [facility] [address] [place] [address] Dr. Tien Osorio BLAST # Normal [facility] Comment on above: Performed By: #### B MP #### [facility] [address] [place] [address] Dr. Tien Osorio BLAST % Normal [facility] Comment on above: Performed By: #### B MP #### [facility] [address] [place] [address] Dr. Tien Osorio CORRECTED WBC Normal 4.0-11.[address] [facility] Comment on above: Performed By: #### B MP #### [facility] [address] [place] [address] Dr. Tien Osorio EOS # 0.04 103/ul Normal 0.00-0.70 [facility] Comment on above: Performed By: #### B MP #### [facility] [address] [place] [address] Dr. Tien Osorio EOS% 1.0 % Normal 0.9-7.[address] [facility] Comment on above: Performed By: #### B MP #### [facility] [address] [place] [address] Dr. Tien Osorio HCT 36.4 % Normal 36.0-48.[address] [facility] Comment on above: Performed By: #### B MP #### [facility] [address] [place] [address] Dr. Tien Osorio HGB 12.2 g/dl Normal 12.0-16.[address] [facility] Comment on above: Performed By: #### B MP #### [facility] [address] [place] [address] Dr. Tien Osorio LYMPHM # 0.49 103/ul Critically low 1.20-3.80 [facility] Comment on above: Performed By: #### B MP #### [facility] [address] [place] [address] Dr. Tien Osorio LYMPHM% 12.0 % Critically low 20.5-60.0 [facility] [facility] Comment on above: Performed By: #### B MP #### [facility] [address] [place] [address] Dr. Tien Osorio MCH 30.3 pg Normal 26.7-34.[address] [facility] Comment on above: Performed By: #### B MP #### [facility] [address] [place] [address] Dr. Tien Osorio MCHC 33.5 g/dl Normal 29.9-35.[address] [facility] Comment on above: Performed By: #### B MP #### [facility] [address] [place] [address] Dr. Tien Osorio MCV 90.3 fL Normal 81.0-99.[address] [facility] Comment on above: Performed By: #### B MP #### [facility] [address] [place] [address] Dr. Tien Osorio METAMYELOCYTE # Normal [facility] Comment on above: Performed By: #### B MP #### [facility] [address] [place] [address] Dr. Tien Osorio METAMYELOCYTE % Normal [facility] Comment on above: Performed By: #### B MP #### [facility] [address] [place] [address] Dr. Tien Osorio MONOM# 0.37 103/ul Normal 0.30-0.[address] [facility] Comment on above: Performed By: #### B MP #### [facility] [address] [place] [address] Dr. Tien Osorio MONOM% 9.0 % Normal 1.7-12.[address] [facility] Comment on above: Performed By: #### B MP #### [facility] [address] [place] [address] Dr. Tien Osorio MPV 9.8 fL Normal 9.5-13.[address] [facility] Comment on above: Performed By: #### B MP #### [facility] [address] [place] [address] Dr. Tien Osorio MYELOCYTE # Normal [facility] Comment on above: Performed By: #### B MP #### [facility] [address] [place] [address] Dr. Tien Osorio MYELOCYTE % Normal [facility] Comment on above: Performed By: #### B MP #### [facility] [address] [place] [address] Dr. Tien Osorio NRBC Normal [facility] Comment on above: Performed By: #### B MP #### [facility] [address] [address] [address] Tien Osorio PLT 190 103/ul Normal 150-450 [facility] Comment on above: Performed By: #### B MP #### [facility] [address] [address] [address] Tien Osorio RBC 4.03 106/ul Critically low 4.20-5.40 [facility] Comment on above: Performed By: #### B MP #### [facility] [address] [place] [address] Dr. Tien Osorio RDW 13.9 % Normal 11.0-15.[address] [facility] Comment on above: Performed By: #### B MP #### [facility] [address] [place] [address] Dr. Tien Osorio SEG # 3.12 103/ul Normal 1.40-6.[address] [facility] Comment on above: Performed By: #### B MP #### [facility] [address] [place] [address] Dr. Tien Osorio SEG % 76.0 % Critically high 43.0-75.[address] [facility] Comment on above: Performed By: #### B MP #### [facility] [address] [place] [address] Dr. Tien Osorio WBC 4.1 103/ul Normal 4.0-11.[address] [facility] Comment on above: Performed By: #### B MP #### [facility] [address] [place] [address] Dr. Tien Osorio CRPon 10-23-2021 CRP 2.7 mg/dL Critically high <=1.[address] [facility] Comment on above: Performed By: #### B MP #### [facility] [address] [place] [address] Dr. Tien Osorio PROF CHEM 8 (BAS METB)on Anion gap [Moles/Vol] 4.8 mmol/L Normal [facility] Comment on above: Performed By: #### B MP #### [facility] [address] [address] [address] Tien Osorio Calcium [Mass/Vol] 7.9 mg/dL Critically low 8.5-10.1 Th e [facility] Comment on above: Performed By: #### B MP #### [facility] [address] [address] [address] Tien Osorio Chloride [Moles/Vol] 103 mmol/L Normal 98-[address] [facility] Comment on above: Performed By: #### B MP #### [facility] [address] [address] [address] Tien Osorio CO2 [Moles/Vol] 28.6 mmol/L Normal 21.0-32.[address] [facility] Comment on above: Performed By: #### B MP #### [facility] [address] [place] [address] Dr. Tien Osorio Creatinine [Mass/Vol] 0.77 mg/dL Normal 0.55-1.[address] [facility] Comment on above: Performed By: #### B MP #### [facility] [address] [place] [address] Dr. Tien Osorio EGFR-AF CENTRAL AFRICAN >60 Normal >=[address] [facility] Comment on above: Performed By: #### B MP #### [facility] [address] [place] [address] Dr. Tien Osorio EGFR-NON AF CENTRAL AFRICAN >60 Normal >=[address] [facility] Comment on above: Performed By: #### B MP #### [facility] [address] [address] [address] Tien Osorio Glucose [Mass/Vol] 106 mg/dL Normal 74-[address] [facility] Comment on above: Performed By: #### B MP #### [facility] [address] [place] [address] Dr. Tien Osorio Potassium [Moles/Vol] 3.4 mmol/L Critically low 3.5-5.[address] [facility] Comment on above: Performed By: #### B MP #### [facility] [address] [place] [address] Dr. Tien Osorio Sodium [Moles/Vol] 133 mmol/L Critically low 136-145 Th e [facility] Comment on above: Performed By: #### B MP #### [facility] [address] [place] [address] Dr. Tien Osorio Urea nitrogen [Mass/Vol] 8.0 mg/dL Normal 7.0-18.[address] [facility] Comment on above: Performed By: #### B MP #### [facility] [address] [place] [address] Dr. Tien Osorio Urea nitrogen/Creatinin e [Mass ratio] 10.4 mg/mg Normal [facility] Comment on above: Performed By: #### B MP #### [facility] [address] [place] [address] Dr. Tien Osorio SED RATE WESTERGRENon 2021 SED RATE 18 mm/hr Normal <=[address] [facility] Comment on above: Performed By: #### B MP #### [facility] [address] [place] [address] Dr. Tien Osorio CBC AUTO DIFFon 10-20-2021 BASO # 0.0 103/ul Normal 0.0-0.[address] [facility] Comment on above: Performed By: #### B MP #### [facility] [address] [place] [address] Dr. Tien Osorio Basophils/100 WBC (Bld) 0.3 % Normal 0.2-2.[address] [facility] Comment on above: Performed By: #### B MP #### [facility] [address] [place] [address] Dr. Tien Osorio EO # 0.0 103/ul Normal 0.0-0.[address] [facility] Comment on above: Performed By: #### B MP #### [facility] [address] [place] [address] Dr. Tien Osorio Eosinophils/100 WBC (Bld) 1.3 % Normal 0.9-7.[address] [facility] Comment on above: Performed By: #### B MP #### [facility] [address] [place] [address] Dr. Tien Osorio Erythrocyte distribution width (RBC) [Ratio] 14.0 % Normal 11.0-15.[address] [facility] Comment on above: Performed By: #### B MP #### [facility] [address] [place] [address] Dr. Tien Osorio Hematocrit (Bld) [Volume fraction] 34.3 % Critically low 36.0-48.[address] [facility] Comment on above: Performed By: #### B MP #### [facility] [address] [place] [address] Dr. Tien Osorio Hemoglobin (Bld) [Mass/Vol] 11.6 g/dL Critically low 12.0-16.[address] [facility] Comment on above: Performed By: #### B MP #### [facility] [address] [place] [address] Dr. Tien Osorio IG # 0.03 10e3/ul Normal 0.00-0.[address] [facility] Comment on above: Performed By: #### B MP #### [facility] [address] [place] [address] Dr. Tien Osorio IG % 0.9 % Critically high 0.0-0.[address] [facility] Comment on above: Performed By: #### B MP #### [facility] [address] [place] [address] Dr. Tien Osorio LYMPH # 0.4 103/ul Critically low 1.2-3.[address] [facility] Comment on above: Performed By: #### B MP #### [facility] [address] [place] [address] Dr. Tien Osorio Lymphocytes/100 WBC (Bld) 12.3 % Critically low 20.5-60.[address] [facility] Comment on above: Performed By: #### B MP #### [facility] [address] [place] [address] Dr. Tien Osorio MANUAL DIFF REQ NO Normal [facility] Comment on above: Performed By: #### B MP #### [facility] [address] [place] [address] Dr. Tien Osorio MCH (RBC) [Entitic mass] 30.4 pg Normal 26.7-34.[address] [facility] Comment on above: Performed By: #### B MP #### [facility] [address] [place] [address] Dr. Tien Osorio MCHC (RBC) [Mass/Vol] 33.8 g/dL Normal 29.9-35.2 [facility] Comment on above: Performed By: #### B MP #### [facility] [address] [place] [address] Dr. Tien Osorio MCV (RBC) [Entitic vol] 90.0 fL Normal 81.0-99.[address] [facility] Comment on above: Performed By: #### B MP #### [facility] [address] [place] [address] Dr. Tien Osorio MONO # 0.3 103/ul Normal 0.3-0.8 [facility] Comment on above: Performed By: #### B MP #### [facility] [address] [place] [address] Dr. Tien Osorio Monocytes/100 WBC (Bld) 10.7 % Normal 1.7-12.[address] [facility] Comment on above: Performed By: #### B MP #### [facility] [address] [place] [address] Dr. Tien Osorio NEUT # 2.4 103/ul Normal 1.4-6.5 [facility] Comment on above: Performed By: #### B MP #### [facility] [address] [place] [address] Dr. Tien Osorio Neutrophils/100 WBC (Bld) 74.5 % Normal 43.0-75.0 [facility] Comment on above: Performed By: #### B MP #### [facility] [address] [place] [address] Dr. Tien Osorio Platelet mean volume (Bld) [Entitic vol] 10.0 fL Normal 9.5-13.5 [facility] Comment on above: Performed By: #### B MP #### [facility] [address] [place] [address] Dr. Tien Osorio PLT 158 103/ul Normal 150-450 [facility] Comment on above: Performed By: #### B MP #### [facility] [address] [address] [address] Tien Osorio RBC 3.81 106/ul Critically low 4.20-5.[address] [facility] Comment on above: Performed By: #### B MP #### [facility] [id number] Tien Osorio WBC 3.2 103/ul Critically low 4.0-11.[address] [facility] Comment on above: Performed By: #### B MP #### [facility] [id number] Tien Osorio CT HEAD WO CONon [...] AMADOR ALICEA Date: 2021-10-20 13:46 Normal [facility] PROF CHEM 8 (BAS METB)on Anion gap [Moles/Vol] 11.9 mmol/L Normal [facility] Comment on above: Performed By: #### B MP #### [facility] [id number] Tine Osorio Calcium [Mass/Vol] 8.3 mg/dL Critically low 8.5-10.1 Th e [facility] Comment on above: Performed By: #### B MP #### [facility] [id number] Tien Osorio Chloride [Moles/Vol] 104 mmol/L Normal 98-[address] [facility] Comment on above: Performed By: #### B MP #### [facility] [address] [address] [address] Tien Osorio CO2 [Moles/Vol] 26.2 mmol/L Normal 21.0-32.[address] [facility] Comment on above: Performed By: #### B MP #### [facility] [address] [address] [address] Tien Osorio Creatinine [Mass/Vol] 0.61 mg/dL Normal 0.55-1.[address] [facility] Comment on above: Performed By: #### B MP #### [facility] [address] [address] [address] Tien Osorio EGFR-AF CENTRAL AFRICAN >60 Normal >=[address] [facility] Comment on above: Performed By: #### B MP #### [facility] [address] [place] [address] Dr. Tien Osorio EGFR-NON AF CENTRAL AFRICAN >60 Normal >=[address] [facility] Comment on above: Performed By: #### B MP #### [facility] [address] [address] [address] Tien Osorio Glucose [Mass/Vol] 115 mg/dL Critically high 74-106 [facility] Comment on above: Performed By: #### B MP #### [facility] [address] [place] [address] Dr. Tien Osorio Potassium [Moles/Vol] 4.1 mmol/L Normal 3.5-5.1 [facility] Comment on above: Performed By: #### B MP #### [facility] [address] [address] [address] Tien Osorio Sodium [Moles/Vol] 138 mmol/L Normal 136-145 [facility] Comment on above: Performed By: #### B MP #### [facility] [address] [address] [address] Tien Osorio Urea nitrogen [Mass/Vol] 7.0 mg/dL Normal 7.0-18.[address] [facility] Comment on above: Performed By: #### B MP #### [facility] [address] [place], [place] [address] Dr. Tien Osorio Urea nitrogen/Creatinin e [Mass ratio] 11.5 mg/mg Normal [facility] Comment on above: Performed By: #### B MP #### [facility] [address] [place], [place] [address] Dr. Tien Osorio [facility] SED RATE 19 mm/hr Normal <=[address] [facility] Comment on above: Performed By: #### B MP #### [facility] [address] [place], [place] [address] Dr. Tien Osorio Cardiovascular Lab Reporton 04-30-2018 Cardiovascular Lab Report [facility] Patient Name: [facility] Carito Jalloh MR #: [id number] of Physician: Rogelio Whitlock M.D.Division of Service Date: 04/29/2018Cardiology Birthdate: 1980Adult Cardi[facility] [place], [place] [address]Nhtaj Fax Cardiovascular Laboratory ReportINDICATION: The patient is [...] signed informed consent. She was brought to laboratory clerk in a fastingstate. The right neck area was prepped and draped in usual fashion. Usingultrasound guidance and micropuncture technique, the right internal jugularvein was accessed. A 6-Czech x 11 cm sheath was placed. A [...] day.2. She will be hydrated in the laboratory clerk holding area before discharge.3. Follow up in Cardiology Clinic with Dr. Kade Sofia.Electronically Signed by:Rogelio Whitlock M.D. 05/02/2018 07:18 P Rogelio Whitlock M.D.Date Dict: 04/29/2018/02:44 P/Rogelio Whitlock M.D.Date Trans: 04/30/2018 04:20 A/[id number]_[id number]: Kade Sofia M.D. [address] [facility] [address] Rock Dunbar M.D. [address] [place] [address] Normal [facility] BASIC METABOLIC PANELon 11-0 Calcium mass conc 8.9 mg/dL Normal 8.6-10.3 [facility] Comment on above: Performed By: #### 0 0071 ####[facility] [facility] [address], [facility] Chloride molar conc 105 mmol/L Normal 98-107 [facility] Comment on above: Performed By: #### 0 0071 ####[facility] [facility] [address], [facility] CO2 molar conc 28 mmol/L Normal 21-31 [facility] Comment on above: Performed By: #### 0 0071 ####[facility] [facility] [address], [facility] Creatinine mass conc 0.71 mg/dL Normal 0.60-1.20 [facility] Comment on above: Performed By: #### 0 0071 ####[facility] [facility] [place] [address], [facility] GFR/1.73 sq M predicted among blacks MDRD vol rate/area (S/P/Bld) mL/min/{1.73_m2} Normal >60 [facility] Comment on above: Performed By: #### 0 0071 ####[facility] [facility] [place] [address], [facility] GFR/1.73 sq M predicted among non-blacks MDRD vol rate/area (S/P/Bld) mL/min/{1.73_m2} Normal >60 [facility] Comment on above: Performed By: #### 0 0071 ####[facility] [facility] [place] [address], [facility] Glucose mass conc 91 mg/dL Normal 70-100 [facility] Comment on above: Performed By: #### 0 0071 ####[facility] [facility] [place] [address], [facility] Potassium molar conc 4.2 mmol/L Normal 3.5-5.1 [facility] Comment on above: Performed By: #### 0 0071 ####[facility] [facility] [place] [address], [facility] Sodium molar conc 138 mmol/L Normal 136-145 [facility] Comment on above: Performed By: #### 0 0071 ####[facility] [facility] [place] [address], [facility] Urea nitrogen mass conc 4 mg/dL Low 7-25 [facility] Comment on above: Performed By: #### 0 0071 ####[facility] [facility].[address] CBC COMPLETE BLOOD COUNTon 1 06-29-2017 Erythrocyte distribution width Auto Ratio (RBC) 13.1 % Normal 11.5-15.0 [facility] Comment on above: Performed By: #### 5 0608 ####[facility] [facility].[address] Hematocrit Auto Volume Fraction (Bld) 38.5 % Normal 36.0-45.0 [facility] Comment on above: Performed By: #### 5 0608 ####[place] [id number] [address] Hemoglobin mass conc (Bld) 13.6 g/dL Normal 12.0-15.0 [facility] Comment on above: Performed By: #### 5 0608 ####[facility] MCH Auto Entitic mass (RBC) 30.0 pg Normal 27.0-33.0 [facility] Comment on above: Performed By: #### 5 0608 ####[facility] MCHC Auto mass conc (RBC) 35.3 g/dL High 32.0-35.0 [facility] Comment on above: Performed By: #### 5 0608 ####[facility] [facility].[address] MCV Auto Entitic volume (RBC) 84.8 fL Normal 82.0-98.0 [facility] Comment on above: Performed By: #### 5 0608 ####[facility] [facility].[address] Nucleated RBC/100 WBC Ratio (Bld) 0 % Normal 0-0 [facility] Comment on above: Performed By: #### 5 0608 ####[address] PLAT CNT 183 10*3/uL Normal 150-400 [facility] Comment on above: Performed By: #### 5 0608 ####[address] RBC Auto #/vol (Bld) 4.54 10*6/uL Normal 3.80-5.00 [facility] Comment on above: Performed By: #### 5 0608 ####[address] WBC Auto #/vol (Bld) 5.28 10*3/uL Normal 4.00-10.60 [facility] Comment on above: Performed By: #### 5 0608 ####[address] Cardiovascular Lab Reporton 04-01-2018 Cardiovascular Lab Report [facility] Patient Name: [facility] Carito Jalloh MR #: [id number] of Physician: Kade Sofia M.D.Division of Service Date: 03/31/2018Cardiology Birthdate: 1980Adult Cardiovascular Room #: [place] [address]Phone Fax Cardiovascular Laboratory ReportINDICATION: The patient is a long-term patient of mine from [place]. Shehas a history of a severe nonischemic cardiomyopathy that improvedsubstantially with SPECIAL TESTER defibrillator. She has a [employer] device [...] removed device was a [employer] [id number]. It was implanted on 02/22/2013. Next, the [...] zone with 200 beats per minute. Next, SPECIAL TESTER pacing wasreinstituted.ASSESSMENT:1. Conscious sedation.2. Removal of existing SPECIAL TESTER generator. The SVC plug is port capped as prior.3. Placement of a new SPECIAL TESTER-D generator. There were no apparent complications. There was no contrast utilized. There was no fluoroscopy utilized. Blood loss was minimal.Electronically Signed by:Kade Sofia M.D. 04/01/2018 08:32 A Kade Sofia M.D.Date Dict: 03/31/2018/01:48 P/Kade Sofia M.D.Date Trans: 04/01/2018 06:34 A/[id number]: Rock Dunbar M.D. [address] [facility] [address] Normal [facility] Coding Summary.on 02-09-2018 Coding Summary. CODING DATE: [facility] STATUS: Home (Routine DC) PAYOR: Medicaid EAPG [...] Steen Date Saved: 02/09/2018 11:43 am Normal [facility] Coding Summary. CODING DATE: 08/22/2 018 FINAL [facility] STATUS: Home (Routine DC) PAYOR: Medicaid [...] Steen Date Saved: 02/09/2018 11:42 am Normal [facility] Discharge Summaryon 02-09-20 Discharge Summary Admission Informatio [...] Daily, # 30 tab(s), Refills(s) 0, Pharmacy: [facility]/pharmacy #[id number] aspirin, 81 mg = 1 tab(s), Tab-EC, [...] 02/24/2018 01:30 PM EDT [address] [place] [phone] Business (1) Additional Instructions: ROCK DUNBAR 02/16/2018 09:45 AM EDT [address] [place] [phone] Business (1) Additional Instructions: Patient Education Core Measures: Stroke (Cerebrovascular Accident) [facility], (Custom) [facility] Comment on above: Result Comment: Elec tronically Signed By: Alona LEIJA, Makayla\.br\Date and Time Signed: 02/08/18 10:03 EDT Inpatient Clinical Summaryon 02-08-2018 Inpatient Clinical Summary [place] [id number] Clinical Summary Person Information:Name: CARITO RIOS Age: 37 Years : 1980 12:00 AM Sex: Female PCP: ROCK DUNBAR MD Marital Status: Race:White Ethnicity:Non- or Language:Azeri Visit Id: Visit Reason:Headache; HISTORY BELLS PALSY AND STROKE LIKE SYMPTOMS Speciality: Acuity: 3 Enc Type: Observation Med Service: Medical Arrival:02/06/2018 9:55 PM Discharge: Dispo Type: Admitted as IP to this Hosp Address:[address] [place] [address] [address] [facility] [id number] Provider Notes: Diagnosis:1:Complicated migraine; 2:Tobacco abuse disorder; [...] MD NConsulting Physician: Jin Herrera DO, MD, [facility] Physician: Follow up:With: Address: When: [place] [address] Business (1) 02/16/18 09:45:00 Comments: With: Address: When: Amador [address] [facility] [address] [place] [phone] Business (1) 02/24/18 13:30:00 Patient Education Information: Migraine Headache, Wzyp-sa-Ysds [facility] Inpatient Patient Summaryon 02-08-2018 Inpatient Patient Summary [address] [address] Patient Discharge Instructions PERSON INFORMATION Name: CARITO RIOS Date of : 1980 12:00 AM Current Date: 02/08/18 11:05:41 PHYSICIANS Admitting Physician: Carlos Alberto LEIJA, Eliel [facility] Care Physician: HOWARD DUNBAR MD Comment: Discharge [...] results: NoneFollow up:With: Address: When: [place] [address] Business (1) 02/16/18 09:45:00 Comments: With: Address: When: Amador [address] [place] [address] [phone] Business (1) 02/24/18 13:30:00 In the event that this physician does not participate in your insurance network, please consult with your insurance company to find a nearby participating provider. Comment: TOVA Dinh MACKENZIE L, have received the attached patient education materials/instructions and have verbalized understanding:Patient Signature Date Clinican/Nurse Signature Date HERE ARE THE MEDICATION CHANGES THAT OCCURRED DURING YOUR HOSPITAL STAY [facility]ations[id number] [address] [place] [address], [phone] (aspirin 81 mg Oral EC Tab) 1 [...] 08/29/2012 Document Reviewed: 02/12/2014ExitCare? Patient Information ?2014 CURRENT. This information is not intended to replace advice given to you by your health care provider. Make sure you discuss any questions you have with your health care provider. Medication Leaflets: Thank you for choosing [facility] Interdisciplinary Note - Gustavo e Manageron 02-08-2018 Thyrotropin Qn Rounding with Dr. Zavala ir, Perez (pharm), Lisa RN, Yane DE LA VEGA, white board updated, reviewed hospital status with patient, she denies any needs and has no concerns, Dr. Sage reviewed plan of care; patient voices understanding. No needs identified, her boyfriend will come and pick her up upon discharge. [facility] Interdisciplinary Note - PTo n 02-08-2018 Interdisciplinary Note - PT P.T. Evaluation done this date. Pt. with on AM-PAC this date. Safe and independent with all functional activities. No further P.T. needs. [facility] Lipid Panelon 02-08-2018 Cholesterol in HDL mass conc 58 mg/dL Invalid Interpretation Code [facility] Comment on above: Result Comment: HDL > or equal to 60 mg/dL: Low cardiovascular riskHDL < 40 mg/dL : High cardiovascular risk Performed By: #### 2 309902, 2164726, 77412409, 0971188, 5377308, 05234611, 6157929, 7694489, 68024770, 68826184 ####[facility] [address] [place] [address] Cholesterol in LDL mass conc 77 mg/dL Normal <=129 [facility] Comment on above: Performed By: #### 2 360245, 6197745, 03875945, 4423842, 9605378, 89133342, 5178968, 4754598, 28348357, 79465131 ####[facility] [address] [place] [address] Cholesterol in VLDL mass conc 15 mg/dL Normal 7-40 [facility] Comment on above: Performed By: #### 2 405094, 0514801, 28037611, 0949957, 4926886, 21905397, 3348866, 8204594, 90413306, 23113293 ####[facility] [address] [place] [address] Cholesterol mass conc 145 mg/dL Normal 120-200 [facility] Comment on above: Performed By: #### 2 185459, 5143174, 92657630, 5857020, 3720595, 34561828, 6014320, 5439298, 25911545, 61372708 ####[facility] [address] [place] [address] Triglyceride mass conc 73 mg/dL Normal <=149 [facility] Comment on above: Performed By: #### 2 143949, 6536823, 51942238, 2297139, 5554785, 34185035, 2062974, 3855261, 94912489, 59028901 ####[facility] [address] [place] [address] Progress Note-Physicianon Protein mass conc Assessment/Plan The patient is a 37-year-old right-handed white female with a history of Nonischemic cardiomyopathy and pulmonary embolism with reported family history of stroke at a young age who was admitted to the hospital with sudden onset of Left sided numbness and paresthesias with possible weakness and left-sided headache. The patient was evaluated by [facility] stroke service for acute stroke therapy and [...] an MRI scan of the brain at [facility] due to radiology policy -I recommend [...] left upper and lower extremity Cerebellar exam: Zikjed-nq-ltgw reveals Some dysmetria in the left finger to nose. Gait is normal The neurological exam was performed by a healthcare professional which was witnessed and supervised by me via video telemedicine visit consented to by the patient or appropriate patient outside medical sales representative. [3] Lab Results Chol: 145 [...] Marahmarcin VILLEGAS, Jolly 02/07/2018 11:26 EDT [facility] Comment on above: Result Comment: Elec tronically Signed By: Claudia Lu RN\.br\Date and Time Signed: 02/08/18 07:42 EDT\.br\Electronically Co-Signed By: Amador Hallman MD\.br\Date and Time Co-Signed: 02/08/18 08:52 EDT Auto Diffon 02-07-2018 Basophils Auto #/vol (Bld) 0.8 % Normal 0.0-2.0 [facility] Comment on above: Order Comment: Order added by Discern Expert. Performed By: #### 2 440141, 7584494, 96088622, 2588554, 4990844, 54263594, 6901915, 3861787, 58207741, 55130911 ####[facility] [address] [place] [address] Basophils/Leukocyt es Auto Pure number fraction (Bld) 0.0 E9/L Normal 0.0-0.2 [facility] Comment on above: Order Comment: Order added by Discern Expert. Performed By: #### 2 124035, 6824991, 24344050, 2727784, 2842000, 54825556, 1233889, 2488707, 70743654, 40417568 ####[place] [address] [place] [address] Eosinophils/100 WBC Auto (Bld) 1.8 % Normal 0.0-8.0 [facility] Comment on above: Order Comment: Order added by Discern Expert. Performed By: #### 2 036421, 0676167, 43578366, 4048384, 4554467, 87003242, 4113373, 2286076, 25862193, 06437753 ####[address] [address] Eosinophils/Leukoc ytes Auto Pure number fraction (Bld) 0.1 E9/L Normal 0.0-0.5 [facility] Comment on above: Order Comment: Order added by Discern Expert. Performed By: #### 2 959341, 9754404, 79861911, 6498316, 2229099, 81525657, 2952732, 8568416, 98110722, 30745130 ####[address] [address] Lymphocytes/100 WBC Auto (Bld) 18.0 % Normal 14.0-50.0 [facility] Comment on above: Order Comment: Order added by Discern Expert. Performed By: #### 2 803065, 3036778, 11522341, 4568880, 7930737, 97040657, 1318253, 2537484, 52121319, 72342490 ####[place] [address] [place] [address] Lymphocytes/Leukoc ytes Auto Pure number fraction (Bld) 0.9 E9/L Low 1.0-4.0 [facility] Comment on above: Order Comment: Order added by Discern Expert. Performed By: #### 2 178493, 1038491, 08081240, 1397942, 2248961, 20430822, 2857678, 0942018, 67570315, 71390350 ####[address] [place] [address] Monocytes/100 WBC Auto (Bld) 9.0 % Normal 4.0-14.0 [facility] Comment on above: Order Comment: Order added by Discern Expert. Performed By: #### 2 334390, 3345505, 49345097, 6634734, 7599185, 96528059, 5755908, 0084953, 91553349, 56454552 ####[place] [address] [place] [address] Monocytes/Leukocyt es Auto Pure number fraction (Bld) 0.5 E9/L Normal 0.2-1.0 [facility] Comment on above: Order Comment: Order added by Discern Expert. Performed By: #### 2 255876, 5418648, 90263980, 6677690, 0575559, 73361428, 3446483, 4106772, 03613930, 10950614 ####[place] [address] [place] [address] Neutrophils/100 WBC Auto (Bld) 70.4 % Normal 36.0-75.0 [facility] Comment on above: Order Comment: Order added by Discern Expert. Performed By: #### 2 466782, 7755924, 42400515, 0989490, 7831333, 37210352, 5212091, 8775213, 69372914, 51521224 ####[place] [address] [place] [address] Neutrophils/Leukoc ytes Auto Pure number fraction (Bld) 3.6 E9/L Normal 2.0-7.5 [facility] Comment on above: Order Comment: Order added by Discern Expert. Performed By: #### 2 048526, 1920826, 96013579, 7009194, 0223025, 48587341, 2887197, 5478203, 89699908, 13018804 ####[place] [address] [place] [address] BB Draw & Holdon 02-07-2018 BB D&H Sample drawn for Blood Ba [facility] Comment on above: Performed By: #### 2 831659, 5506508, 12827319, 2317707, 3760669, 16429915, 6066065, 7709182, 30721437, 16252859 ####[facility] [address] [place] [address] BMPon 02-07-2018 Creatinine mass conc 0.7 mg/dL Normal 0.5-1.3 [facility] Comment on above: Performed By: #### 2 704499, 4336584, 75538297, 0279209, 5712942, 26004680, 6761797, 9410941, 28854594, 60781717 ####[facility] [address] [place] [address] Urea nitrogen mass conc 9 mg/dL Normal 5-21 [facility] Comment on above: Performed By: #### 2 788817, 7217360, 86552696, 8268380, 9782198, 16175053, 1701023, 4239079, 16820494, 33172050 ####[facility] [address] [place] [address] Urea nitrogen/Creatinin e mass ratio 13 No Units Normal 10-20 [facility] Comment on above: Performed By: #### 2 652633, 3851807, 49035899, 5718405, 8099805, 03674430, 5899867, 1364107, 09923922, 31243632 ####[facility] [address] [place] [address] Anion gap 3 molar conc 9 mmol/L Normal 6-16 [facility] Comment on above: Performed By: #### 2 670018, 6556734, 57639463, 3813971, 7808972, 37608785, 1287583, 5862634, 71131993, 50933042 ####[facility] [address] [place] [address] Calcium mass conc 8.5 mg/dL Low 8.9-11.1 [facility] Comment on above: Performed By: #### 2 657768, 4186342, 40786005, 1164475, 3229448, 06337314, 4144063, 3303064, 08966902, 79223053 ####[facility] [address] [place] [address] Chloride molar conc 105 mmol/L Normal 101-111 [facility] Comment on above: Performed By: #### 2 429058, 2836288, 33585694, 5795392, 1891820, 84681911, 5790147, 7414066, 17859663, 16113617 ####[facility] [address] [place] [address] CO2 molar conc 27 mmol/L Normal 21-31 [facility] Comment on above: Performed By: #### 2 599735, 6552314, 59234678, 8336718, 3642177, 19268931, 1693122, 1875976, 93856057, 13154410 ####[facility] [address] [place] [address] Glucose mass conc 92 mg/dL Normal 55-199 [facility] Comment on above: Result Comment: If t his glucose result represents a fasting glucose, interpretation should refer to the following reference range: 55-99 mg/dL Performed By: #### 2 150185, 5391406, 33502661, 4037310, 4418309, 53922669, 9518027, 1480781, 76594141, 75719868 ####[facility] [address] [place] [address] Potassium molar conc 4.0 mmol/L Normal 3.5-5.3 [facility] Comment on above: Performed By: #### 2 443946, 7687069, 53059120, 6162739, 1161002, 62529650, 6110615, 3787171, 51733203, 67111080 ####[facility] [address] [place] [address] Sodium molar conc 137 mmol/L Normal 135-145 [facility] Comment on above: Performed By: #### 2 266878, 9212217, 56708526, 6916359, 0774531, 19920105, 6501079, 6859361, 92941155, 89644426 ####[place] [address] [place] [address] CBC w/ Auto Diffon 8 Erythrocyte distribution width Auto Ratio (RBC) 13.1 % Normal 10.9-14.2 [facility] Comment on above: Performed By: #### 2 020440, 1571446, 85407003, 3350862, 2668196, 42782393, 6102395, 8796295, 54648995, 18955584 ####[address] [address] Hematocrit Auto Volume Fraction (Bld) 37.0 % Normal 34.0-46.0 [facility] Comment on above: Performed By: #### 2 610879, 9607064, 65121691, 9883209, 0676554, 57718164, 2150885, 1619856, 19569050, 49629723 ####[address] [address] Hemoglobin mass conc (Bld) 13.0 g/dL Normal 12.0-16.0 [facility] Comment on above: Performed By: #### 2 576370, 5876466, 32041303, 8647898, 2020239, 70644886, 9341973, 4091303, 33558340, 05853224 ####[place] [address] [place] [address] MCH Auto Entitic mass (RBC) 29.8 pg Normal 27.0-34.0 [facility] Comment on above: Performed By: #### 2 544609, 1891735, 22799349, 9301888, 4870958, 07078759, 8774691, 4018926, 89563275, 61143074 ####[address] [address] MCHC Auto mass conc (RBC) 35.1 g/dL Normal 31.4-39.3 [facility] Comment on above: Performed By: #### 2 806181, 0034361, 42018744, 0165636, 5259994, 94331141, 4443626, 7622490, 58986438, 50418640 ####[facility] [address] [place] [address] MCV Auto Entitic volume (RBC) 84.8 fL Normal 80.0-100.0 [facility] Comment on above: Performed By: #### 2 805466, 0382548, 78153356, 5143496, 4731964, 55026143, 4363071, 7168459, 82758876, 79116112 ####[place] [address] [place] [address] Platelet mean volume Auto Entitic volume (Bld) 8.4 fL Normal 6.4-10.8 [facility] Comment on above: Performed By: #### 2 057069, 7465178, 65449923, 4534096, 8707228, 58114503, 9638251, 6950323, 02844180, 44451757 ####[address] [address] Platelets Auto #/vol (Bld) 166.0 E9/L Normal 150.0-500. 0 [facility] Comment on above: Performed By: #### 2 361092, 3604217, 82209819, 6626765, 5971025, 12384663, 0863927, 7022347, 99320549, 52777819 ####[facility] [address] [place] [address] RBC Auto #/vol (Bld) 4.4 E12/L Normal 4.3-5.9 [facility] Comment on above: Performed By: #### 2 113202, 0694447, 78236907, 4670138, 2190349, 49518546, 9003800, 6515820, 72488552, 70847109 ####[address] [place] [address] WBC corrected for nucl RBC Auto #/vol (Bld) 5.1 E9/L Normal 4.0-11.0 [facility] Comment on above: Performed By: #### 2 329886, 8085291, 08920036, 0733174, 9046400, 50279138, 7613600, 2981942, 95522284, 73617984 ####[facility] [address] [place] [address] CT Head or Brain w/o Contras ton [...] M.D. Transcribed by: SOLOMON Technologist: HERMANN Live [facility] CTA Headon 02-07-2018 CTA Head Exam Date/Time:2017 [...] 370Contrast amount in ml's: 70 Normal [facility] Consultation Noteon 02-08-20 Consultation Note Chief [...] or hemorrhage. The patient was evaluated by [facility] stroke service and was not felt to be a acute intervention candidate. The patient was admitted to the hospital for further workup and evaluation. The patient has a pacemaker which is not clear if it is MRI compatible. The patient sees a block trimmer from [facility]. The patient states she still has some [...] left upper and lower extremity Cerebellar exam: Dljpaz-kp-uprg reveals Some dysmetria in the left finger to nose. Gait is normal The neurological exam was performed by a healthcare professional which was witnessed and supervised by me via video telemedicine visit consented to by the patient or appropriate patient outside medical sales representative. Assessment/Plan The patient is a 37-year-old right-handed white female with a history of Nonischemic cardiomyopathy and pulmonary embolism with reported family history of stroke at a young age who was admitted to the hospital with sudden onset of Left sided numbness and paresthesias with possible weakness and left-sided headache. The patient was evaluated by [facility] stroke service for acute stroke therapy and [...] Lymph Auto 18.0 % 02/06/2018 23:57 EDT Imperial Auto 9.0 % 02/06/2018 23:57 EDT Eos Auto 1.8 % 02/06/2018 23:57 EDT Basophil Auto 0.8 % 02/06/2018 23:57 EDT Neutro Absolute 3.6 E9/L 02/06/2018 23:57 EDT Lymph Absolute 0.9 E9/L (Low) 02/06/2018 23:57 EDT Imperial Absolute 0.5 E9/L 02/06/2018 23:57 EDT Eos [...] 23:57 EDT New Troponin Assay 11/02/[address] Cutoff value > or = 0.03 ng/mL [...] Signature): 02/07/2018 8:26 am Signed by: Yaw Laen M.D. Transcribed by: SOLOMON Technologist: HERMANN QIU REPORT [2][1] Admission H & P; Eliel Carcamo MD 02/07/2018 03:53 EDT[2] CT Head or Brain w/o Contrast; Yaw Lane M.D. 02/06/2018 23:56 EDT [facility] Comment on above: Result Comment: Elec tronically Signed By: Claudia Lu RN\.br\Date and Time Signed: 02/07/18 09:11 EDT\.br\Electronically Co-Signed By: Claudia Lu RN\.br\Date and Time Co-Signed: 02/07/18 09:27 EDT\.br\Electronically Co-Signed By: Amador Hallman MD\.br\Date and Time Co-Signed: 02/07/18 10:19 EDT ED Clinical Summaryon 2017 ED Clinical Summary [place] [id number] ED Clinical SummaryPerson Information Name: CARITO RIOS/Sierra Age: 37 Years : 1980 12:00 AM Sex: Female Language:Azeri PCP: ROCK DUNBAR MD Marital Status: Visit Id: Visit Reason:Headache; HISTORY BELLS PALSY AND STROKE LIKE SYMPTOMS Speciality: Acuity: 3 Enc Type: Observation Med Service: Medical Arrival:02/06/2018 9:55 PM Discharge: LOS: 000 05:54 Checkin:02/06/2018 9:55 PM Checkout: 02/07/2018 3:49 AM Dispo Type: Admitted as IP to this [facility] EVENTS:Event Name Event Status Request Date/Time [...] 02/07/2018 3:38 AM ADDR[place]:[address] [facility] [id number] PHYS DOC NOTES: MEDICAL INFORMATION: Prescriptions Given:PATIENT EDUCATION INFORMATION: Instructions: Follow up:DIAGNOSIS:1:Hemisensory deficit; 2:At risk for stroke; 3:Ischemic cardiomyopathy; 4:History of Rae's palsy; Stroke-like symptom [facility] ED Note-Physicianon 02-08-20 ED Note-Physician Basic Information [...] the first hour we then contacted the [facility]. I discussed the case in detail with [...] Basic Metabolic Panel CBC w/ Auto Diff [place] Stroke Scale Communication Order Physician to Nursing Continuous Pulse Oximetry CT Head or Brain w/o Contrast CVA/TIA Inclusion/Exclusion Criteria ECG 12 Lead Adult ED Cardiac Monitoring eGFR Magnesium Level NIH Stroke Scale Oxygen Therapy PT & PTT Saline Lock Insert Stroke Quality Measures Troponin 0 Hr. TSH With T4fr Reflex Vital Signs XR Chest Single ViewMedications Administered Given sulonk8Ulkalcsmu [F], 25 mg, IV morphine 2 mg/mL [...] Lymph Auto: 18 % (02/06/18 23:57:00 EDT) Imperial Auto: 9 % (02/06/18 23:57:00 EDT) Eos Auto: 1.8 % (02/06/18 23:57:00 EDT) Basophil Auto: 0.8 % (02/06/18 23:57:00 EDT) Neutro Absolute: 3.6 E9/L (02/06/18 23:57:00 EDT) Lymph Absolute: 0.9 E9/L Low (02/06/18 23:57:00 EDT) Imperial Absolute: 0.5 E9/L (02/06/18 23:57:00 EDT) Eos [...] mg/dL (02/06/18 23:47:00 EDT) POC Device SN: [id number] (02/06/18 23:47:00 EDT) POC Username: VALDEZ DOSHI (02/06/18 23:47:00 EDT)Diagnostic Results No qualifying data available. CT brain showed no acute changes. [facility] Comment on above: Result Comment: Elec tronically Signed By: Darling LEIJA, Mesfin\.br\Date and Time Signed: 02/07/18 02:59 EDT ED Patient Education Noteon 02-07-2018 ED Patient Education Note [facility] ED Patient Summaryon 018 ED Patient Summary (Inserted Image. Lolis ble to display) [place] [address] Patient Discharge Instructions Person Information Name: CARITO RIOS Age: 37 Years Date: 02/06/2018 9:55 PMDischarge Diagnosis: 1:Hemisensory deficit; 2:At risk for stroke; 3:Ischemic cardiomyopathy; 4:History of Rae's palsy; Stroke-like symptom Primary Care Physician: ROCK DUNBAR MD [facility] Provider: Darling LEIJA, [facility] Supervisor Scenic Arts:None The exam and treatment you received in the Emergency Department were for an urgent problem and are not intended as complete care. It is important that you follow up with a doctor, nurse practitioner, or physician?s field administrative assistant for ongoing care. If your symptoms [...] opioids can be used to help relieve zqprxauu-mn-hkozqb pain and are often prescribed following a [...] be struggling with addiction, tell your health palliative care nurse and ask for guidance or call SAMHSA?S National Helpline at 9-432-239-CRZJ. v Source: [place] Department of Health and Human Services/Center for Disease Control & Prevention [facility] Medications Given:Medication Dose Route ondansetron [...] Mouth 2 times a day.Comment: Pharmacy Information: [facility] [place] Thank you for choosing [facility] Patient Education Materials: TOVA Dinh MACKENZIE L , have received the following patient education materials/instructions and have verbalized understanding: Patient Education Materials: Follow-up Instructions: Prescriptions: Patient Signature Date Clinician/Nurse Signature Date 02/07/18 03:49:22 [facility] History and Physicalon 02-07 History and Physical [...] a request was made to transfer to [facility] for further stroke workup but patient was declined as he was leaving the concern for acute CVA by [place]. At the time of my evaluation, head [...] Lymph Auto: 18 % (02/06/18 23:57:00 EDT) Imperial Auto: 9 % (02/06/18 23:57:00 EDT) Eos Auto: 1.8 % (02/06/18 23:57:00 EDT) Basophil Auto: 0.8 % (02/06/18 23:57:00 EDT) Neutro Absolute: 3.6 E9/L (02/06/18 23:57:00 EDT) Lymph Absolute: 0.9 E9/L Low (02/06/18 23:57:00 EDT) Imperial Absolute: 0.5 E9/L (02/06/18 23:57:00 EDT) Eos [...] mg/dL (02/06/18 23:47:00 EDT) POC Device SN: [id number] (02/06/18 23:47:00 EDT) POC Username: VALDEZ DOSHI [...] apnea: Mother. Stroke: Mother and Father. [facility] Comment on above: Result Comment: Elec tronically Signed By: Eliel Carcamo MD\.br\Date and Time Signed: 02/07/18 03:54 EDT Interdisciplinary Note - Gustavo e Manageron 02-07-2018 Interdisciplinary Note - Mental Health Orderly Rounding with Perez Garvey Ph. Yane DE LA VEGA, Lisa RN, white board updated, reviewed observation status with patient, and went over any other questions reguarding her Insurance, verified with patient that Dr. Dunbar is her PCP and she sees Dr. Savage for her neuro due to history of [place] Palsy. Patient stated that she just seen both of them about a month ago. Dr. Sage went over treatment plan with patient to have Neuro consult today and if improvement with headaches, a possible plan of discharge today as well, Patient's boyfriend will transport home. No other needs or concerns voiced. [facility] Magnesiumon 02-07-2018 Magnesium mass conc 1.9 mg/dL Normal 1.3-2.4 [facility] Comment on above: Performed By: #### 2 405571, 6906835, 20652325, 5221826, 4727694, 34886313, 7575767, 7185866, 59424078, 59063455 ####[facility] [address] [place] [address] PT & PTTon 02-07-2018 aPTT Coag time (Bld) 35.4 second(s) Normal 25.1-36.5 [facility] Comment on above: Result Comment: Hepa rin therapeutic range (represented by Anti-Factor Xa activity of 0.2 - 0.4 U/mL) corresponds to PTT of 53.9 - 87.4 sec. Performed By: #### 2 559157, 8338910, 52741108, 0104657, 2484028, 64950226, 4817302, 4395074, 77411999, 27567929 ####[facility] [address] [place] [address] INR Coag RelTime (PPP) 1.0 {INR} Invalid Interpretation Code [facility] Comment on above: Result Comment: INR results are specifically intended to assess patients stabilized on long-term Anticoagulation therapy suggested INR?s ?Less Intensive Anticoagulation? 2.0 ? 3.0Conventional Range 3.0 ? 4.5 Performed By: #### 2 701196, 6816088, 48842398, 2162511, 9399687, 08476431, 6216661, 9752834, 32866261, 15958992 ####[facility] [address] [place] [address] Prothrombin time (PT) Coag time (PPP) 10.9 second(s) Normal 10.2-12.9 [facility] [facility] Comment on above: Performed By: #### 2 727344, 2835175, 96633022, 7610508, 3519946, 35199683, 7686976, 5307665, 59372190, 72448199 ####[facility] [address] [place] [address] Progress Note - Mental Health Orderly on 02-07-2018 Progress Note - Mental Health Orderly Rounding with Perez Garvey Ph. Yane DE LA VEGA, Lisa RN, white board updated, reviewed observation status with patient, and went over any other questions reguarding her Insurance, verified with patient that Dr. Dunbar is her PCP and she sees Dr. Savage for her neuro due to history of [place] Palsy. Patient stated that she just seen both of them about a month ago. Dr. Sage went over treatment plan with patient to have Neuro consult today and if improvement with headaches, a possible plan of discharge today as well, Patient's boyfriend will transport home. No other needs or concerns voiced. Normal [facility] Progress Note-Nurseon 2017 Protein mass conc Patient is complaing of itching proximal to the IV site. Pt reports itching bgan to occur after administration of morphine. Physician made aware and gave verbal order to administer 25 mg of benadryl [facility] Protein mass conc 2330 This nurse got [...] called. Physician reports he will [facility] and assess patient. 2335 Physician at bedside at this time assessing patient. NIH completed at this time by physician. 2344 This nurse and physician spoke at this time regarding situation with patient. Physician stated to call Rapid response at this time. Rapid response stroke called. 2347 blood sugar obtained at this time, reading [id number] This nurse took pt to CT at this time. Normal [facility] TSH With T4fr Reflexon 02-07 Thyrotropin Qn 2.90 mcIU/mL Normal 0.34-5.60 [facility] Comment on above: Performed By: #### 2 554736, 6345252, 21384658, 5771132, 2134402, 31724577, 6628248, 4768817, 45140682, 84063131 ####[facility] [address] [place] [address] Troponin 0 Hr.on 02-07-2018 Troponin I.cardiac mass conc ng/mL Normal <=0.03 [facility] Comment on above: Result Comment: New Troponin Assay 11/02/13ROC CT Cutoff value > or = 0.03 ng/mL in conjunction with clinical conditions of myocardial infarction.(www.escardio.org/guidelines) Performed By: #### 2 844151, 9563274, 86690905, 5841151, 3002349, 40025431, 5083668, 9002344, 88445849, 49173256 ####[facility] [address] [place] [address] XR Chest Single Viewon 02-07 INR Coag [...] MD Transcribed by: SOLOMON Technologist: HERMANN [facility] eGFRon 02-07-2018 GFR/1.73 sq M predicted among blacks MDRD vol rate/area (S/P/Bld) mL/min/{1.73_m2} Normal >=59 [facility] Comment on above: Order Comment: Order added by Discern Expert. Result Comment: eGFR is race adjusted. AA=. Performed By: #### 2 999265, 1412341, 08486801, 6636301, 9500059, 64472689, 1199250, 1014548, 93030082, 72150049 ####[facility] [address] [place] [address] GFR/1.73 sq M predicted among non-blacks MDRD vol rate/area (S/P/Bld) mL/min/{1.73_m2} Normal >=59 [facility] Comment on above: Order Comment: Order added by Discern Expert. Result Comment: Stage Driver nya kidney disease could be indicated at eGFR's of less than 60 mL/min/1.73m2. Kidney failure is indicated at less than 15 mL/min/1.73m2. Performed By: #### 2 199480, 6295364, 24218136, 5228189, 0304163, 60098454, 2776277, 9795487, 89706127, 90985242 ####[facility] [address] [place] [address] Coding Summary.on 01-07-2018 Coding Summary. CODING DATE: 018 FINAL [facility] STATUS: Home (Routine DC) PAYOR: Medicaid EA [...] Revised Date Saved: 01/07/2018 09:50 am Normal [facility] XR Chest 2 Viewson 8 INR Coag [...] M.D. Transcribed by: SOLOMON Technologist: ALIN Normal [facility] Auto Diffon 01-06-2018 Basophils Auto #/vol (Bld) 0.9 % Normal 0.0-2.0 [facility] Comment on above: Order Comment: Order Added by Discern Expert. Performed By: #### 2 862931, 9734073, 74571725, 2141541, 0550751, 06707707, 2805042, 1193088, 42472174, 05280580 ####[facility] [address] [place] [address] Basophils/Leukocyt es Auto Pure number fraction (Bld) 0.0 E9/L Normal 0.0-0.2 [facility] Comment on above: Order Comment: Order Added by Discern Expert. Performed By: #### 2 199802, 9445766, 34631154, 1605340, 4047666, 71612162, 8667097, 4553306, 57039809, 38699192 ####[place] [address] [place] [address] Eosinophils/100 WBC Auto (Bld) 2.3 % Normal 0.0-8.0 [facility] Comment on above: Order Comment: Order Added by Discern Expert. Performed By: #### 2 691609, 6538942, 60926814, 5588575, 1731854, 18544830, 8620572, 2006137, 89721893, 43226238 ####[address] [place] [address] Eosinophils/Leukoc ytes Auto Pure number fraction (Bld) 0.1 E9/L Normal 0.0-0.5 [facility] Comment on above: Order Comment: Order Added by Discern Expert. Performed By: #### 2 946950, 2743587, 19289045, 3623460, 8637414, 29805692, 8469874, 8764563, 99267821, 32457755 ####[address] [place] [address] Lymphocytes/100 WBC Auto (Bld) 17.2 % Normal 14.0-50.0 [facility] Comment on above: Order Comment: Order Added by Discern Expert. Performed By: #### 2 821653, 1508844, 68793470, 0345782, 8168494, 24338181, 3226777, 7850032, 56514898, 87261494 ####[address] [place] [address] Lymphocytes/Leukoc ytes Auto Pure number fraction (Bld) 0.9 E9/L Low 1.0-4.0 [facility] Comment on above: Order Comment: Order Added by Discern Expert. Performed By: #### 2 763728, 4509590, 62474265, 6383091, 8327603, 83069980, 6245039, 7747398, 75032946, 67697766 ####[address] [place] [address] Monocytes/100 WBC Auto (Bld) 6.9 % Normal 4.0-14.0 [facility] Comment on above: Order Comment: Order Added by Discern Expert. Performed By: #### 2 577099, 8684463, 29924837, 8924201, 1277862, 63552553, 9623587, 1075138, 55251092, 69629221 ####[facility] [address] [place] [address] Monocytes/Leukocyt es Auto Pure number fraction (Bld) 0.4 E9/L Normal 0.2-1.0 [facility] Comment on above: Order Comment: Order Added by Discern Expert. Performed By: #### 2 368094, 9212098, 61662817, 7556184, 3048233, 81028106, 5034049, 5304504, 70817425, 13262974 ####[address] [place] [address] Neutrophils/100 WBC Auto (Bld) 72.7 % Normal 36.0-75.0 [facility] Comment on above: Order Comment: Order Added by Discern Expert. Performed By: #### 2 349337, 7209346, 81527877, 5913093, 8042439, 64237689, 3159812, 7329485, 85558065, 98766036 ####[address] [place] [address] Neutrophils/Leukoc ytes Auto Pure number fraction (Bld) 3.7 E9/L Normal 2.0-7.5 [facility] Comment on above: Order Comment: Order Added by Discern Expert. Performed By: #### 2 512305, 7274031, 99131626, 3597455, 4033255, 71339249, 3589719, 0837351, 46930242, 61481092 ####[facility] [address] [place] [address] BMPon 01-06-2018 Creatinine mass conc 0.7 mg/dL Normal 0.5-1.3 [facility] Comment on above: Performed By: #### 2 881215, 3170453, 57418212, 0817836, 4801964, 32311964, 4708825, 0458699, 90047351, 67057249 ####[facility] [address] [place] [address] Urea nitrogen mass conc 7 mg/dL Normal 5-21 [facility] Comment on above: Performed By: #### 2 010249, 3451980, 11675762, 3033304, 9106498, 03547385, 0118738, 1652866, 14381985, 67620870 ####[facility] [address] [place] [address] Urea nitrogen/Creatinin e mass ratio 10 No Units Normal 10-20 [facility] Comment on above: Performed By: #### 2 614759, 1692899, 14728416, 0608297, 0434933, 49843281, 4442789, 7667210, 05125239, 86206702 ####[facility] [address] [place] [address] Anion gap 3 molar conc 12 mmol/L Normal 6-16 [facility] Comment on above: Performed By: #### 2 586901, 3908582, 11525251, 3060684, 3521554, 16047751, 3238644, 8931353, 96231892, 63610267 ####[facility] [address] [place] [address] Calcium mass conc 8.8 mg/dL Low 8.9-11.1 [facility] Comment on above: Performed By: #### 2 524533, 5882387, 55716098, 6900826, 5318887, 73692764, 4300470, 1951902, 14789179, 86056683 ####[facility] [address] [place] [address] Chloride molar conc 105 mmol/L Normal 101-111 [facility] Comment on above: Performed By: #### 2 471771, 6433831, 36637051, 6849348, 9298622, 99883930, 3836915, 9509136, 14753912, 66868862 ####[facility] [address] [place] [address] CO2 molar conc 24 mmol/L Normal 21-31 [facility] Comment on above: Performed By: #### 2 085282, 1627862, 92494701, 0264082, 1433130, 56643361, 1006957, 0262827, 77588329, 10658271 ####[facility] [address] [place] [address] Glucose mass conc 117 mg/dL Normal 55-199 [facility] Comment on above: Result Comment: If t his glucose result represents a fasting glucose, interpretation should refer to the following reference range: 55-99 mg/dL Performed By: #### 2 129911, 6926000, 95747644, 2893578, 2333587, 01999996, 2957590, 3515877, 05043403, 33600680 ####[facility] [address] [place] [address] Potassium molar conc 3.7 mmol/L Normal 3.5-5.3 [facility] Comment on above: Performed By: #### 2 116811, 0450617, 27967947, 2809088, 2998840, 31358538, 4637328, 3088013, 67712282, 54659001 ####[facility] [address] [place] [address] Sodium molar conc 137 mmol/L Normal 135-145 [facility] Comment on above: Performed By: #### 2 632488, 4925716, 47144463, 6214277, 0723705, 54102507, 8885841, 2740285, 67549909, 86997874 ####[facility] [address] [place] [address] BNPon 01-06-2018 Natriuretic peptide B mass conc (Bld) 8 pg/mL Normal 5-80 [facility] Comment on above: Performed By: #### 2 151320, 4217339, 03219542, 6675255, 6240286, 04317919, 5926118, 4431929, 68345617, 95425832 ####[address] [place] [address] CBC w/ Auto Diffon 8 Erythrocyte distribution width Auto Ratio (RBC) 14.0 % Normal 10.9-14.2 [facility] Comment on above: Performed By: #### 2 565535, 9396570, 20374069, 4377761, 7360266, 19092563, 8609312, 5074971, 11290108, 86638987 ####[address] [place] [address] Hematocrit Auto Volume Fraction (Bld) 38.2 % Normal 34.0-46.0 [facility] Comment on above: Performed By: #### 2 946425, 8109435, 15664680, 0407315, 4934913, 79843223, 8507096, 5509528, 48966457, 44329697 ####[address] [address] Hemoglobin mass conc (Bld) 13.5 g/dL Normal 12.0-16.0 [facility] Comment on above: Performed By: #### 2 430009, 7924135, 57218298, 8115884, 3565203, 40566206, 1848334, 0174904, 76936713, 91187174 ####[address] [place] [address] MCH Auto Entitic mass (RBC) 30.3 pg Normal 27.0-34.0 [facility] Comment on above: Performed By: #### 2 585569, 7266033, 41842162, 0828774, 6665484, 10460988, 4522536, 6697225, 38663646, 40968548 ####[address] [place] [address] MCHC Auto mass conc (RBC) 35.4 g/dL Normal 31.4-39.3 [facility] Comment on above: Performed By: #### 2 102076, 4922514, 61001587, 0761993, 2161811, 90270342, 5435537, 0701159, 23500433, 88714732 ####[facility] [address] [place] [address] MCV Auto Entitic volume (RBC) 85.6 fL Normal 80.0-100.0 [facility] Comment on above: Performed By: #### 2 459110, 2653735, 74735860, 3850416, 1360779, 11912727, 4316824, 5130375, 15859073, 65869307 ####[address] [place] [address] Platelet mean volume Auto Entitic volume (Bld) 8.7 fL Normal 6.4-10.8 [facility] Comment on above: Performed By: #### 2 639927, 5447497, 59327971, 0922294, 5116927, 25588189, 8771909, 2921435, 17540838, 54769550 ####[place] [address] Platelets Auto #/vol (Bld) 178.0 E9/L Normal 150.0-500. 0 [facility] Comment on above: Performed By: #### 2 330715, 7859100, 19391821, 9125000, 8220253, 55914534, 6235398, 3377950, 13641082, 59226944 ####[address] [place] [address] RBC Auto #/vol (Bld) 4.5 E12/L Normal 4.3-5.9 [facility] Comment on above: Performed By: #### 2 964702, 9220079, 54544552, 6615309, 5709425, 81090885, 2063501, 3018189, 27568314, 87384507 ####[address] [place] [address] WBC corrected for nucl RBC Auto #/vol (Bld) 5.1 E9/L Normal 4.0-11.0 [facility] Comment on above: Performed By: #### 2 528269, 5587668, 47264974, 2705601, 0251911, 01460016, 6818782, 1752244, 83453384, 21609305 ####[facility] [address] [place] [address] ED Clinical Summaryon 2017 ED Clinical Summary [address] [address] ED Clinical SummaryPerson Information Name: Suzette RIOS/Sierra Age: 37 Years : 1980 12:00 AM Sex: Female Language:Azeri PCP: ROCK DUNBAR MD Marital Status: Visit [...] 01/06/2018 9:51 PM ADDRESS:[address] [facility] [id number] PHYS DOC NOTES: MEDICAL INFORMATION: Prescriptions Given:Prescription Display meclizine (meclizine 25 mg Tab) 25 mg = 1 tab(s), Oral, TID, PRN Dizziness, # 30 tab(s), Refills(s) 0, Pharmacy: [facility]/pharmacy #[id number] Home Meds Display alprazolam (Xanax 1 mg Tab) 1 mg = 1 tab(s), Oral, TID, PRN for anxiety, Refills(s) 0 citalopram (CeleXA 20 mg Tab) 20 mg = 1 tab(s), Oral, Daily olanzapine (olanzapine 5 mg oral tablet) 5 mg = 1 tab(s), Oral, Daily pantoprazole (pantoprazole 40 mg Oral EC Tab) 40 mg = 1 tab(s), Oral, BID PATIENT EDUCATION INFORMATION: Instructions:Dizziness, Jpkn-ox-Prjj; Vertigo Follow up:With: Address: When: ROCK DUNBAR [address] [place] [address] CeQur (1GoEuro In 3 days 01/09/2018 Comments: Call physician if symptoms worsen Return to ED if symptoms worsen DIAGNOSIS:1:Vertigo [facility] ED Note-Physicianon 01-07-20 ED Note-Physician Basic Information [...] meclizine 25 mg Tab, 25 mg, Oral wezidh18Ihyosollk [F], 12.5 mg, IV PushDisposition Plan Patient Discharge Condition Improved Discharge Disposition Home Discharge Prescription List Prescriptions meclizine 25 mg Tab, 25 mg= 1 tab(s), Oral, TID, PRN Follow-up With When Contact Information ROCK DUNBAR In 3 days 01/09/2018 EDT [address] [place] [address]- Business (1) Additional Instructions: Call physician if symptoms worsen Return to ED if symptoms worsen Patient Education Dizziness, Czla-sf-Tniz VertigoProblem List/Past Medical History Ongoing Cardiomyopathy CHF [...] Lymph Auto: 17.2 % (01/06/18 19:45:00 EDT) Imperial Auto: 6.9 % (01/06/18 19:45:00 EDT) Eos Auto: 2.3 % (01/06/18 19:45:00 EDT) Basophil Auto: 0.9 % (01/06/18 19:45:00 EDT) Neutro Absolute: 3.7 E9/L (01/06/18 19:45:00 EDT) Lymph Absolute: 0.9 E9/L Low (01/06/18 19:45:00 EDT) Imperial Absolute: 0.4 E9/L (01/06/18 19:45:00 EDT) Eos [...] 73 bpm. Similar to previous EKGs. Normal [facility] Comment on above: Result Comment: Elec [...] to steady yourself.? 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 Patient Information ?2014 CURRENT. This information is not intended to replace [...] 08/29/2012 Document Reviewed: 12/24/2011ExitCare? Patient Information ?2014 CURRENT. This information is not intended to replace advice given to you by your health care provider. Make sure you discuss any questions you have with your health care provider. Normal [facility] ED Patient Summaryon 018 ED Patient Summary (Inserted Image. Lolis ble to display) [place] [id number] Patient Discharge Instructions Person Information Name: CARITO RIOS Age: 37 Years Date: 01/06/2018 7:34 PMDischarge Diagnosis: 1:Vertigo Primary Care Physician: ROCK DUNBAR MD Provider InformationPrimary Provider: Jada Echols Supervisor Scenic Arts:None The exam and treatment you received in the Emergency Department were for an urgent problem and are not intended as complete care. It is important that you follow up with a doctor, nurse practitioner, or physician?s field administrative assistant for ongoing care. If your symptoms become worse or you do not improve as expected and you are unable to reach your usual health care provider, you should return to the Emergency Department. We are available 24 hours a day. CARITO RIOS has been given the following list of patient education materials, prescriptions and follow-up instructions: Follow-up Instructions:With: Address: When: ROCK DUNBAR [address] [place] [address] Business (1) In 3 days 01/09/2018 Comments: Call physician if symptoms worsen Return to ED if symptoms worsen In the event that this physician does not participate in your insurance network, please consult with your insurance company to find a nearby participating provider. Patient Education Materials:Dizziness, Hqaw-tc-Jecb; Vertigo A MESSAGE TO ALL PATIENTS REGARDING OPIOIDS PRESCRIPTION OPIOIDS: WHAT YOU NEED TO KNOW Prescription opioids can be used to help relieve suydnmyp-xg-usagdz pain and are often prescribed following a [...] be struggling with addiction, tell your health palliative care nurse and ask for guidance or call [facility]S National Helpline at 6-692-944-LNLS. x Source: US Department of Health and Human Services/Center for Disease Control & Prevention [facility] Medications Given:Medication Dose Route Sodium Chloride 0.9% intravenous solution 1000.00 mL Initial Volume 1000.00 mL/hr IV Left Lower Forearm promethazine 12.50 mg IV Push Left Lower Forearm meclizine 25.00 mg Oral Medication Information:[id number], [address] [place] [address], [phone] (meclizine 25 mg Tab) 1 Tabs By [...] Tabs By Mouth every day.Comment: Pharmacy Information: [facility] Thank you for choosing [facility] Patient Education Materials: DizzinessDizziness means you feel [...] to steady yourself.? 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 Patient Information ?2014 CURRENT. This information is not intended to replace [...] 08/29/2012 Document Reviewed: 12/24/2011ExitCare? Patient Information ?2014 CURRENT. This information is not intended to replace advice given to you by your health care provider. Make sure you discuss any questions you have with your health care provider.TOVA Dinh MACKENZIE , have received the following patient education materials/instructions and have verbalized understanding: Patient Education Materials: Dizziness, Kysy-nz-Lqdf; Vertigo Follow-up Instructions: With: Address: When: ROCK DUNBAR [address] [place] [address] Business (9) In 3 days 01/09/2018 Comments: Call physician if symptoms worsen Return to ED if symptoms worsen Prescriptions: [meclizine (meclizine 25 mg Tab)] Patient Signature Date Clinician/Nurse Signature Date 01/06/18 21:51:17 Normal [facility] Magnesiumon 01-06-2018 Magnesium mass conc 1.9 mg/dL Normal 1.3-2.4 [facility] Comment on above: Performed By: #### 2 823802, 3165838, 91747026, 4839348, 9794999, 60583132, 8069750, 0281448, 32479509, 74483194 ####[facility] [address] [place] [address] PT & PTTon 01-06-2018 aPTT Coag time (Bld) 38.5 second(s) High 25.1-36.5 [facility] Comment on above: Result Comment: Hepa rin therapeutic range (represented by Anti-Factor Xa activity of 0.2 - 0.4 U/mL) corresponds to PTT of 53.9 - 87.4 sec. Performed By: #### 2 525897, 1174646, 77619251, 5081216, 5673567, 91927436, 2713609, 1304589, 57789765, 04681325 ####[facility] [address] [place] [address] INR Coag RelTime (PPP) 1.0 {INR} Invalid Interpretation Code [facility] Comment on above: Result Comment: INR results are specifically intended to assess patients stabilized on long-term Anticoagulation therapy suggested INR?s ?Less Intensive Anticoagulation? 2.0 ? 3.0Conventional Range 3.0 ? 4.5 Performed By: #### 2 823463, 2882031, 57408539, 9457818, 7732703, 45786938, 7615404, 1672364, 05633838, 94581203 ####[facility] [address] [place] [address] Prothrombin time (PT) Coag time (PPP) 11.3 second(s) Normal 10.2-12.9 [facility] Comment on above: Performed By: #### 2 914877, 5892003, 98098493, 1381077, 0162595, 85187429, 4407367, 5029242, 32528827, 90524433 ####[facility] [address] [place] [address] Progress Note - Pharmacyon 0 01-06-2018 Protein [...] comments:-Medications added:OlanzapineCelexaXanaxPant oprazole-Medications removed:Clonazepam CarvedilolEffexor-Medications updated: Normal [facility] Troponin 0 Hr.on 01-06-2018 Troponin I.cardiac mass conc ng/mL Normal <=0.03 [facility] Comment on above: Result Comment: New Troponin Assay 11/02/13ROC CT Cutoff value > or = 0.03 ng/mL in conjunction with clinical conditions of myocardial infarction.(www.escardio.org/guidelines) Performed By: #### 2 094496, 3903061, 39059494, 6433655, 0710497, 09664052, 1691867, 7018732, 56288689, 63108342 ####[facility] [address] [place] [address] eGFRon 01-06-2018 GFR/1.73 sq M predicted among blacks MDRD vol rate/area (S/P/Bld) mL/min/{1.73_m2} Normal >=59 [facility] Comment on above: Order Comment: Order added by Discern Expert. Result Comment: eGFR is race adjusted. AA=. Performed By: #### 2 559423, 1656518, 13214420, 8655623, 1268097, 88578595, 8369122, 4627183, 48711214, 90049920 ####[facility] [address] [place] [address] GFR/1.73 sq M predicted among non-blacks MDRD vol rate/area (S/P/Bld) mL/min/{1.73_m2} Normal >=59 [facility] Comment on above: Order Comment: Order added by Discern Expert. Result Comment: Stage Driver nya kidney disease could be indicated at eGFR's of less than 60 mL/min/1.73m2. Kidney failure is indicated at less than 15 mL/min/1.73m2. Performed By: #### 2 212502, 7196363, 81821467, 5191271, 3209778, 07816036, 4099354, 5523401, 06303689, 36632477 ####[facility] [address] [place] [address] Coding Summary.on 11-17-2017 Coding Summary. CODING DATE: 018 FINAL [facility] STATUS: Home (Routine DC) PAYOR: Medicaid [...] Salazar Date Saved: 11/17/2017 08:31 am Normal [facility] NM Gastric Emptying Studyon 11-16-2017 NM Gastric Emptying Study Exam Date/Time:11/16/2017 10:40 EDTReason for Exam:NAUSEA ALONEReportIMPRESSION: NORMAL GASTRIC EMPTYING RATE.EXAM: Gastric Emptying StudyCOMPARISONS: NONEREASON FOR EXAMINATION: Delayed gastric emptying. TECHNIQUE: 0.9 mCi of [id number] was mixed with eggbeaters, toast, jelly and [...] Administered With: 3.5oz Egg Beaters, 1 Slice [place] with 14g Jelly, and 20mL WaterTime Frame Required to Ingest the Meal (mins): 7% Remainin.5 hr (Lower Limit 70%) 45.61.0 hr (Lower Limit 30%, Upper Limit 90%) 34.62.0 hr (Upper Limit 60%) 2.5 Normal [facility] Discharge Summaryon 10-20-19 18 Discharge Summary Admission Informatio n Admitting Physician - Yovanny Pollard DO Consulting Physician - Aguilar Pizano MD Admitting Diagnoses: Chronic GERD, 10/05/2017Hospital Course Pt is a 37 F admitted with complaints of chest pain. pt was ruled out for ACS with negative cardiac enzymes, no EKG changes. Pt was seen by [facility] cardiology who recommended no further cardiac workup and follow up with her block trimmer at [facility]. pt was seen by GI, had an [...] 7 to 10 days [address] [place] [address]- Business (1) Additional Instructions: Call for followup appointment ROCK DUNBAR Within 3 to 5 days [address] [place] [address]- Business (1) Additional Instructions: Call for followup appointment follow up with your block trimmer at [facility] Within 1 week Additional Instructions: Normal [facility] Comment on above: Result Comment: Elec tronically Signed By: Alona LEIJA, Makayla\.br\Date and Time Signed: 10/19/17 11:09 EDT Coding Summary.on 10-08-2017 Coding Summary. CODING DATE: 018 FINAL [facility] STATUS: Home (Routine DC) PAYOR: Medicaid [...] disorders of kidney and ureter PYMT PROC [facility] STAT DESCRIPTION DOCTOR NAME DATE 12838 Katherine Pizano MD 10/05/2017 phagogastroduodenoscopy, flexible, transoral; with biopsy, single or multiple [id number] Anesthesia for upper Katherine Pizano MD 10/05/2017 [...] Benito Revised Date Saved: 10/08/2017 01:11 pm [facility] Main OR Intraoperative Recor don 10-06-2017 Main OR Intraoperative Record IntraOp Document Type FT Summary Primary Physician: Aguilar Pizano MD Finalized Date/Time: 10/06/17 10:10:40 Pt. Name: CARITO RIOS/Sex: 1980 Female Med Rec #: [id number] Physician: Jada Echols DO Financial #: [id number] Pt. Type: O Room/Bed: [place] [address] Admit/Disch: 10/04/17 21:16:00 - 10/05/17 18:18:00 Institution: [...] Role Performed Surgeon - Primary Anesthesiologist of Color Maker Formulator - Primary Record Time In 10/05/17 15:11:00 10/05/17 15:11:00 10/05/17 15:11:00 Time Out 10/05/17 15:23:00 10/05/17 15:23:00 10/05/17 15:23:00 Procedure EGD(.) EGD(.) EGD(.) Comments Last Modified By: Rene RN, Bhavya López RN, Bhavya López RN, Bhavya Lindsey 10/05/17 15:23:07 10/05/17 15:23:07 10/05/17 15:23:07 Entry 4 Entry 5 Entry 6 Case Attendee Rene RN, Bhavya Dan CST, Jody Moreira CST, Amberly Matos Role Performed Color Maker Formulator - Other Scrub - Other Scrub - [...] and tissue Entry 1 Skin Integrity Intact, [place], Warm, and Skin Abnormality No Dry Outcomes [...] RN Patient Status Stable Skin. Condition Intact, [place], Warm, and Dry Airway Maintenance Oxygen in Use? No Airway Device N/A Outcomes Met? Yes Last Modified By: Bhavya López RN 10/05/17 13:04:49 Post-Care Text: The patient is free from signs and symptoms of injury related to transfer/transport General Comments: Report given to PACU,RN/NISH,academic support coordinator Administration FT Pre-Care Text: Verifies allergies, administers [...] 15:23 Irena Mccauley CST 10/06/17 10:10 Normal [facility] Auto Diffon 10-05-2017 Basophils Auto #/vol (Bld) 1.1 % Normal 0.0-2.0 [facility] Comment on above: Order Comment: Order Added by Discern Expert. Performed By: #### 2 186208, 3843231, 77404998, 7760648, 5331408, 82562422, 6929237, 9631504, 57221757, 57880293 ####[facility] [address] [place] [address] Basophils/Leukocyt es Auto Pure number fraction (Bld) 0.0 E9/L Normal 0.0-0.2 [facility] Comment on above: Order Comment: Order Added by Discern Expert. Performed By: #### 2 028527, 4680865, 36035319, 2080488, 3607727, 76174286, 9856742, 2999865, 91374215, 91967088 ####[facility] [address] [place] [address] Eosinophils/100 WBC Auto (Bld) 2.2 % Normal 0.0-8.0 [facility] Comment on above: Order Comment: Order Added by Discern Expert. Performed By: #### 2 345788, 3599589, 02728303, 1328885, 0855921, 88317309, 0059160, 6954419, 44505337, 15513091 ####[facility] [address] [place] [address] Eosinophils/Leukoc ytes Auto Pure number fraction (Bld) 0.1 E9/L Normal 0.0-0.5 [facility] Comment on above: Order Comment: Order Added by Discern Expert. Performed By: #### 2 796893, 6901378, 86633917, 5483276, 5869693, 50272975, 5746735, 9350099, 47887843, 76407842 ####[place] [address] [place] [address] Lymphocytes/100 WBC Auto (Bld) 22.6 % Normal 14.0-50.0 [facility] Comment on above: Order Comment: Order Added by Discern Expert. Performed By: #### 2 651225, 4742970, 85821294, 7564897, 7455954, 02639526, 4967866, 3585392, 90256423, 68856467 ####[address] [address] Lymphocytes/Leukoc ytes Auto Pure number fraction (Bld) 0.8 E9/L Low 1.0-4.0 [facility] Comment on above: Order Comment: Order Added by Discern Expert. Performed By: #### 2 752159, 2598856, 24328220, 8272555, 7458494, 38505987, 8859276, 8850001, 26866609, 96894749 ####[facility] [address] [place] [address] Monocytes/100 WBC Auto (Bld) 8.6 % Normal 4.0-14.0 [facility] Comment on above: Order Comment: Order Added by Discern Expert. Performed By: #### 2 420908, 8223864, 53478796, 7439966, 9759936, 03782922, 2688495, 3558544, 19517986, 54139336 ####[facility] [address] [place] [address] Monocytes/Leukocyt es Auto Pure number fraction (Bld) 0.3 E9/L Normal 0.2-1.0 [facility] Comment on above: Order Comment: Order Added by Discern Expert. Performed By: #### 2 388023, 9528679, 87599354, 0452439, 8841721, 70887271, 1559319, 6307273, 81971533, 19300048 ####[address] [place] [address] Neutrophils/100 WBC Auto (Bld) 65.5 % Normal 36.0-75.0 [facility] Comment on above: Order Comment: Order Added by Discern Expert. Performed By: #### 2 904664, 7915712, 75785063, 4901656, 5724650, 19195496, 9823060, 1462087, 62133447, 32943199 ####[address] [address] Neutrophils/Leukoc ytes Auto Pure number fraction (Bld) 2.2 E9/L Normal 2.0-7.5 [facility] Comment on above: Order Comment: Order Added by Discern Expert. Performed By: #### 2 229679, 2538646, 35097166, 3368517, 1123191, 38063888, 5294291, 5267264, 69043667, 47419208 ####[address] [place] [address] Basophils Auto #/vol (Bld) 0.9 % Normal 0.0-2.0 [facility] Comment on above: Order Comment: Order Added by Discern Expert. Performed By: #### 2 103429, 1975976, 10307132, 5780870, 4085298, 42314561, 7921660, 5697006, 46256298, 39662810 ####[address] [place] [address] Basophils/Leukocyt es Auto Pure number fraction (Bld) 0.0 E9/L Normal 0.0-0.2 [facility] Comment on above: Order Comment: Order Added by Discern Expert. Performed By: #### 2 974104, 5333616, 02693686, 7797256, 9420436, 38049197, 6963472, 4369339, 75996464, 56442453 ####[facility] [address] [place] [address] Eosinophils/100 WBC Auto (Bld) 1.9 % Normal 0.0-8.0 [facility] Comment on above: Order Comment: Order Added by Discern Expert. Performed By: #### 2 959754, 2511729, 72101255, 5893864, 4047493, 14936959, 8191689, 5921039, 19912077, 24700776 ####[address] [address] Eosinophils/Leukoc ytes Auto Pure number fraction (Bld) 0.1 E9/L Normal 0.0-0.5 [facility] Comment on above: Order Comment: Order Added by Discern Expert. Performed By: #### 2 830293, 9254154, 47740851, 1225821, 3214724, 53862950, 9908307, 2090920, 13388637, 05311266 ####[address] [place] [address] Lymphocytes/100 WBC Auto (Bld) 19.5 % Normal 14.0-50.0 [facility] Comment on above: Order Comment: Order Added by Discern Expert. Performed By: #### 2 982188, 1878010, 68279961, 2936265, 5798592, 85197145, 4754002, 5411934, 84494293, 50105002 ####[address] [place] [address] Lymphocytes/Leukoc ytes Auto Pure number fraction (Bld) 1.0 E9/L Normal 1.0-4.0 [facility] Comment on above: Order Comment: Order Added by Discern Expert. Performed By: #### 2 422551, 0976485, 43745082, 8073956, 8295782, 50614651, 0004386, 9580832, 42949738, 97687426 ####[address] [place] [address] Monocytes/100 WBC Auto (Bld) 7.8 % Normal 4.0-14.0 [facility] Comment on above: Order Comment: Order Added by Discern Expert. Performed By: #### 2 164058, 9460449, 88029441, 0315721, 7850578, 72638479, 4916187, 3039710, 76907399, 49425530 ####[address] [place] [address] Monocytes/Leukocyt es Auto Pure number fraction (Bld) 0.4 E9/L Normal 0.2-1.0 [facility] Comment on above: Order Comment: Order Added by Discern Expert. Performed By: #### 2 990709, 5614369, 01041269, 9546448, 8199499, 74059117, 9431753, 6915242, 84813129, 25409747 ####[address] [place] [address] Neutrophils/100 WBC Auto (Bld) 69.9 % Normal 36.0-75.0 [facility] Comment on above: Order Comment: Order Added by Discern Expert. Performed By: #### 2 540972, 3938708, 98623604, 7890477, 6300878, 73069101, 0186663, 9562433, 26868135, 40991421 ####[address] [place] [address] Neutrophils/Leukoc ytes Auto Pure number fraction (Bld) 3.6 E9/L Normal 2.0-7.5 [facility] Comment on above: Order Comment: Order Added by Discern Expert. Performed By: #### 2 164286, 2718691, 52905451, 8796623, 6591717, 82792368, 1414052, 7929007, 73762723, 08714499 ####[facility] [address] [place] [address] BMPon 10-05-2017 Creatinine mass conc 0.6 mg/dL Normal 0.5-1.3 [facility] Comment on above: Performed By: #### 2 530019, 8623501, 66874326, 2091617, 6563414, 00013868, 5427171, 7775862, 93920105, 12932038 ####[facility] [address] [place] [address] Urea nitrogen mass conc 6 mg/dL Normal 5-21 [facility] Comment on above: Performed By: #### 2 014905, 9314420, 88313055, 6776030, 6149919, 99682339, 2292027, 6860319, 71675608, 61972645 ####[facility] [address] [place] [address] Urea nitrogen/Creatinin e mass ratio 10 No Units Normal 10-20 [facility] Comment on above: Performed By: #### 2 918083, 0263993, 07845223, 4810194, 1513244, 30602956, 7216164, 8758939, 77939520, 40126140 ####[facility] [address] [place] [address] Anion gap 3 molar conc 8 mmol/L Normal 6-16 [facility] Comment on above: Performed By: #### 2 811296, 9708307, 95405383, 6760424, 8049594, 10799813, 5961675, 4122467, 71182560, 22646491 ####[facility] [address] [place] [address] Calcium mass conc 7.7 mg/dL Low 8.9-11.1 [facility] Comment on above: Performed By: #### 2 003788, 4752319, 42347029, 7732587, 7738213, 26344654, 5858888, 3794742, 67738155, 63310676 ####[facility] [place] [address] Chloride molar conc 107 mmol/L Normal 101-111 [facility] Comment on above: Performed By: #### 2 512292, 7001683, 65432059, 7508428, 6516096, 12756636, 6568246, 4972628, 59556736, 10372957 ####[facility] [address] [place] [address] CO2 molar conc 26 mmol/L Normal 21-31 [facility] Comment on above: Performed By: #### 2 864073, 8519208, 11798427, 5100918, 5101356, 56468771, 5965865, 3507194, 12355636, 01161260 ####[facility] [address] [place] [address] Glucose mass conc 78 mg/dL Normal 55-199 [facility] Comment on above: Result Comment: If t his glucose result represents a fasting glucose, interpretation should refer to the following reference range: 55-99 mg/dL Performed By: #### 2 176328, 4328483, 78177131, 2532566, 1263436, 37828912, 1003317, 4981447, 85118498, 74872835 ####[facility] [address] [place] [address] Potassium molar conc 3.6 mmol/L Normal 3.5-5.3 [facility] Comment on above: Performed By: #### 2 675310, 3195060, 64284554, 0313824, 7165605, 64481472, 4470959, 0076939, 13861209, 91595241 ####[facility] [address] [place] [address] Sodium molar conc 137 mmol/L Normal 135-145 [facility] Comment on above: Performed By: #### 2 476721, 7153951, 80109499, 0752708, 0517220, 41215325, 5615772, 4456080, 65372109, 02609072 ####[facility] [address] [place] [address] Creatinine mass conc 0.7 mg/dL Normal 0.5-1.3 [facility] Comment on above: Performed By: #### 2 742371, 5269061, 41189790, 0240547, 5092891, 97386253, 0673527, 5740946, 80328075, 92228575 ####[facility] [address] [place] [address] Urea nitrogen mass conc 7 mg/dL Normal 5-21 [facility] Comment on above: Performed By: #### 2 356300, 9248683, 20428151, 4956385, 8193008, 19634907, 7621362, 6774112, 81387842, 83212978 ####[address] [address] Urea nitrogen/Creatinin e mass ratio 10 No Units Normal 10-20 [facility] Comment on above: Performed By: #### 2 862295, 1438158, 37734239, 6916361, 2987067, 23929759, 8775953, 4225292, 79032819, 68962821 ####[address] [address] BNPon 10-05-2017 Natriuretic peptide B mass conc (Bld) 19 pg/mL Normal 5-80 [facility] Comment on above: Performed By: #### 2 222656, 1136600, 37408873, 3947108, 8098357, 04961526, 9336218, 4551087, 62423333, 50575706 ####[facility] [address] [place] [address] Natriuretic peptide B mass conc (Bld) Pass Normal [facility] Comment on above: Performed By: #### 2 071191, 8740836, 06084043, 9848238, 3409546, 56044890, 0380177, 4832093, 93562684, 09012634 ####[facility] [address] [place] [address] CBC w/ Auto Diffon 8 Erythrocyte distribution width Auto Ratio (RBC) 12.9 % Normal 10.9-14.2 [facility] Comment on above: Performed By: #### 2 114804, 7341678, 02796401, 8821094, 6895503, 12590438, 0406495, 0976585, 55046235, 73141386 ####[facility] [address] [place] [address] Hematocrit Auto Volume Fraction (Bld) 31.3 % Low 34.0-46.0 [facility] Comment on above: Result Comment: Resu lts Verified By Repeat Analysis Performed By: #### 2 860975, 9361313, 74108969, 5408566, 5016124, 59713451, 5597262, 0767857, 97943044, 63613108 ####[facility] [address] [place] [address] Hemoglobin mass conc (Bld) 11.2 g/dL Low 12.0-16.0 [facility] Comment on above: Result Comment: Resu lts Verified By Repeat Analysis Performed By: #### 2 570417, 7485347, 65916690, 8249149, 9313748, 71163366, 2780197, 1039999, 74448808, 04894856 ####[facility] [address] [place] [address] MCH Auto Entitic mass (RBC) 30.6 pg Normal 27.0-34.0 [facility] Comment on above: Performed By: #### 2 394248, 2768959, 67011942, 7336723, 7411378, 56652560, 9423508, 7598366, 10818327, 65083242 ####[facility] [address] [place] [address] MCHC Auto mass conc (RBC) 35.8 g/dL Normal 31.4-39.3 [facility] Comment on above: Performed By: #### 2 857028, 0329822, 92407766, 9454867, 7659735, 85182034, 6836085, 3930137, 67046872, 46806420 ####[facility] [address] [place] [address] MCV Auto Entitic volume (RBC) 85.6 fL Normal 80.0-100.0 [facility] Comment on above: Performed By: #### 2 703962, 4537631, 61012000, 0095824, 1427459, 02412769, 1905352, 8224345, 58965125, 72255665 ####[address] [place] [address] Platelet mean volume Auto Entitic volume (Bld) 8.9 fL Normal 6.4-10.8 [facility] Comment on above: Performed By: #### 2 272332, 6254353, 41367954, 9163362, 3354318, 53926942, 6973278, 5261678, 09190717, 14523695 ####[address] [address] Platelets Auto #/vol (Bld) 146.0 E9/L Low 150.0-500. 0 [facility] Comment on above: Performed By: #### 2 113440, 9486418, 87367516, 7353580, 2245095, 05813766, 6102852, 3361015, 33561829, 59762702 ####[facility] [address] [place] [address] RBC Auto #/vol (Bld) 3.7 E12/L Low 4.3-5.9 [facility] Comment on above: Performed By: #### 2 127571, 6645037, 12459809, 5268726, 9986704, 27787737, 3206676, 9007991, 05159905, 36204385 ####[address] [place] [address] WBC corrected for nucl RBC Auto #/vol (Bld) 3.3 E9/L Low 4.0-11.0 [facility] Comment on above: Performed By: #### 2 827222, 1262776, 42204754, 8579420, 6743019, 24859518, 4177094, 5784076, 67132747, 37765787 ####[facility] [address] [place] [address] Erythrocyte distribution width Auto Ratio (RBC) 13.1 % Normal 10.9-14.2 [facility] Comment on above: Performed By: #### 2 852473, 8912016, 22086199, 4994027, 7009079, 27715271, 8999773, 0183967, 14014746, 87079433 ####[address] [place] [address] Hematocrit Auto Volume Fraction (Bld) 37.3 % Normal 34.0-46.0 [facility] Comment on above: Performed By: #### 2 445520, 8116854, 44306350, 9530096, 1954190, 80898942, 2879039, 3368523, 96394007, 38214507 ####[address] [place] [address] Hemoglobin mass conc (Bld) 13.2 g/dL Normal 12.0-16.0 [facility] Comment on above: Performed By: #### 2 091718, 3808552, 83423603, 6489912, 1278528, 82737954, 9313057, 4764374, 72819909, 65762639 ####[facility] [address] [place] [address] MCH Auto Entitic mass (RBC) 30.3 pg Normal 27.0-34.0 [facility] Comment on above: Performed By: #### 2 214395, 2631390, 46577430, 1345884, 1823692, 40581774, 7626220, 3097192, 37269100, 21577904 ####[address] [place] [address] MCHC Auto mass conc (RBC) 35.5 g/dL Normal 31.4-39.3 [facility] Comment on above: Performed By: #### 2 174711, 6551726, 99732568, 8331406, 3044428, 61523270, 3164168, 1739922, 45757898, 12901815 ####[facility] [address] [place] [address] MCV Auto Entitic volume (RBC) 85.4 fL Normal 80.0-100.0 [facility] Comment on above: Performed By: #### 2 809193, 7015599, 16345920, 6156623, 7620991, 51597940, 9919812, 9223971, 87569083, 38836365 ####[address] [place] [address] Platelet mean volume Auto Entitic volume (Bld) 9.1 fL Normal 6.4-10.8 [facility] Comment on above: Performed By: #### 2 345385, 9480298, 46467828, 8300799, 9686068, 22136322, 6499707, 0507341, 42560911, 76237450 ####[address] [address] Platelets Auto #/vol (Bld) 183.0 E9/L Normal 150.0-500. 0 [facility] Comment on above: Performed By: #### 2 315779, 5157752, 68147518, 8630076, 8767143, 34040467, 4279432, 4573445, 34560255, 97681852 ####[facility] [address] [place] [address] RBC Auto #/vol (Bld) 4.4 E12/L Normal 4.3-5.9 [facility] Comment on above: Performed By: #### 2 078942, 9159407, 97558231, 8747609, 6493752, 69713328, 7868591, 1539598, 50920118, 54696526 ####[address] [place] [address] WBC corrected for nucl RBC Auto #/vol (Bld) 5.1 E9/L Normal 4.0-11.0 [facility] Comment on above: Performed By: #### 2 494864, 7916461, 37336803, 3556317, 0292470, 15938952, 7835954, 7087118, 89145387, 84177436 ####[facility] [address] [place] [address] CTA Abdomen and Pelvison CTA Abdomen and [...] Isovue 370Contrast amount in ml's: 100 Normal [facility] Cardiac 0 Hr.on 10-05-2017 CREATINE KINASE.MB:CCNC:PT: SER/PLAS:QN:EIA 2.2 ng/mL Normal 0.3-4.9 [facility] Comment on above: Performed By: #### 2 973772, 0099538, 80180639, 4694573, 1519541, 34414370, 0676490, 1667731, 56081367, 60681339 ####[facility] [address] [place] [address] Myoglobin mass conc 24 ng/mL Normal <=69 [facility] Comment on above: Performed By: #### 2 044726, 8499080, 46708018, 6590195, 3910553, 36945160, 9632566, 9378574, 38851047, 69322745 ####[facility] [address] [place] [address] Troponin I.cardiac mass conc ng/mL Normal <=0.03 [facility] Comment on above: Result Comment: New Troponin Assay 11/02/13ROC CT Cutoff value > or = 0.03 ng/mL in conjunction with clinical conditions of myocardial infarction.([email or web address]/guidelines) Performed By: #### 2 627484, 1620439, 73716718, 8389432, 0565656, 01033532, 4610047, 1333780, 02423402, 70959491 ####[facility] [address] [place] [address] CK enzyme act/vol 166 Int._Unit/L Normal 14-261 [facility] Comment on above: Performed By: #### 2 827209, 7117775, 42748905, 3587554, 7562357, 29270297, 4976140, 7199363, 84076439, 10319493 ####[facility] [address] [place] [address] Cardiac 3 Hr.on 10-05-2017 CREATINE KINASE.MB:CCNC:PT: SER/PLAS:QN:EIA 1.8 ng/mL Normal 0.3-4.9 [facility] Comment on above: Performed By: #### 2 428781, 6552120, 14902402, 6297553, 4346216, 49105601, 3170807, 0828788, 91285280, 54458062 ####[facility] [address] [place] [address] Myoglobin mass conc 17 ng/mL Normal <=69 [facility] Comment on above: Performed By: #### 2 988291, 7673704, 14718454, 5247804, 3462755, 67381806, 0916503, 1405016, 03536653, 65225549 ####[facility] [address] [place] [address] Troponin I.cardiac mass conc ng/mL Normal <=0.03 [facility] Comment on above: Result Comment: New Troponin Assay 11/02/13ROC CT Cutoff value > or = 0.03 ng/mL in conjunction with clinical conditions of myocardial infarction.([email or web address]/guidelines) Performed By: #### 2 568496, 4121583, 35743749, 0526897, 3095466, 03568249, 4144832, 1319118, 46078295, 36022570 ####[facility] [address] [place] [address] CK enzyme act/vol 145 Int._Unit/L Normal 14-261 [facility] Comment on above: Performed By: #### 2 403604, 2062744, 37485498, 7326445, 6797805, 36836808, 4972992, 8482092, 68003981, 31279692 ####[address] [address] Cardiac 6 Hr.on 10-05-2017 CREATINE KINASE.MB:CCNC:PT: SER/PLAS:QN:EIA 1.7 ng/mL Normal 0.3-4.9 [facility] Comment on above: Performed By: #### 2 324258, 6282527, 80320908, 4569300, 6156299, 77571105, 8783239, 9944607, 49292245, 95695031 ####[place] [place] [place] [address] Troponin I.cardiac mass conc ng/mL Normal <=0.03 [facility] Comment on above: Result Comment: New Troponin Assay 11/02/13ROC CT Cutoff value > or = 0.03 ng/mL in conjunction with clinical conditions of myocardial infarction.([email or web address]/guidelines) Performed By: #### 2 950688, 0215820, 84794238, 8711928, 8193298, 82628282, 4220053, 5007338, 84326439, 70024235 ####[facility] [address] [place] [address] CK enzyme act/vol 129 Int._Unit/L Normal 14-261 [facility] Comment on above: Performed By: #### 2 619520, 6921203, 32646920, 0801521, 3374857, 67136125, 3813565, 3595515, 10524566, 64711809 ####[facility] [address] [place] [address] Cardiac 9 Hr.on 10-05-2017 CK enzyme act/vol 121 Int._Unit/L Normal 14-261 [facility] Comment on above: Performed By: #### 2 095974, 0275888, 31328717, 9706009, 3567567, 90575110, 0016591, 9868047, 15862871, 16616725 ####[facility] [address] [place] [address] Troponin I.cardiac mass conc ng/mL Normal <=0.03 [facility] Comment on above: Result Comment: New Troponin Assay 11/02/13ROC CT Cutoff value > or = 0.03 ng/mL in conjunction with clinical conditions of myocardial infarction.([email or web address]/guidelines) Performed By: #### 2 587158, 8610353, 78206549, 0968027, 2173890, 38263177, 9234858, 8684755, 69873940, 92800057 ####[facility] [address] [place] [address] Consultation Noteon 10-06-19 18 Consultation Note Patient: [...] EF 40 %, sleeve gastrectomy 2013 in [place] for obesity, PE in 2008 and anxietyShe [...] Problem list: All ProblemsCardiomyopathy / SNOMED CT 797103360 / ConfirmedCHF - Congestive heart failure / SNOMED CT 049696242 / ConfirmedPulmonary embolism / SNOMED CT 16806183 / ConfirmedSmoker / SNOMED CT 469178780 / ConfirmedAdded secondary to documentation in Social History. Histories Past Medical History: ActivePulmonary embolism (43699971): Onset in 2008 at 28 years.CHF - Congestive heart failure (266378787)Cardiomyopathy (423908599) Family History: DementiaFatherAsthmaMotherSiste rHypertensionMotherFatherClotti ng disorderFatherDiabetes mellitus type 2MotherStrokeFatherMotherAcute myocardial infarctionMotherHyperlipidemiaM otherRenal failure syndromeMotherSleep apneaMotherDepressionMotherSist er Procedure history: Implantation of automatic cardioverter/defibrillator, total system (AICD) (76537999) in 2008 at 28 Years.Cardiac pacemaker (93596224) in 2008 at 28 Years.Cholecystectomy (86837412).Gastric bypass (3553066937).Abdominal hysterectomy (700538605). delivery (7443079099).Comments:10/05/2017 02:40 - Claudia Lu RN L3hand surgery.Comments:10/05/2017 02:42 - Claudia Lu RN L2 surgeries left handExcision of tonsil (373646585). Social History Social & Psychosocial FdfmylZmdmghv51/16/2018 Risk Assessment: Denies Alcohol Use10/04/2017 Use: Current Comment: denies - 10/04/2017 22:00 - Marge MAGUIRE, Isabel RSubstance Abuse10/04/2017 Risk Assessment: Denies Substance UckxwZouqety39/16/2018 Tobacco Use: 10 or more cigarettes (06/24/1510/04/2017 [...] 10/05/2017 02:11 EDT Height/Length Measured 174 cm [place] Body Weight Calculated 65.059 kg BSA Measured [...] Auto 65.5 % Lymph Auto 22.6 % Imperial Auto 8.6 % Eos Auto 2.2 % Basophil Auto 1.1 % Neutro Absolute 2.2 E9/L Lymph Absolute 0.8 E9/L LOW Imperial Absolute 0.3 E9/L Eos Absolute 0.1 E9/L [...] Auto 69.9 % Lymph Auto 19.5 % Imperial Auto 7.8 % Eos Auto 1.9 % Basophil Auto 0.9 % Neutro Absolute 3.6 E9/L Lymph Absolute 1.0 E9/L Imperial Absolute 0.4 E9/L Eos Absolute 0.1 E9/L [...] EF 40 %, sleeve gastrectomy 2013 in [place] for obesity, PE in 2008 and anxietyChest pain/nausea: will proceed with EGD to rule out esophagitis/PUD, agree with PPISplenomegaly, on CT, normal liver, please refer for hematology evaluationThank you for the consult, please do not hesitate to call with any questions [facility] Comment on above: Result Comment: Elec tronically Signed By: Madeline Goodman MD, Aguilar\.br\Date and Time Signed: 10/05/17 16:33 EDT Consultation Note HOSPITAL REGULATIONS : ALL Positive Important Negative Findings Shall Be Recorded.Date of 10/05/2017Consultation:Dedrick Pollard D.O.Physician:Consulting Luna SuarezDPhysician:CARDIOLOGY CONSULTATION NOTECHIEF COMPLAINT: Weakness.HISTORY OF PRESENT ILLNESS: This is a very pleasant 37 year old woman whofollows with Cardiology, Dr. Sanchez, at [facility] with a history of severe left [...] and can follow up with Dr. Iniguez [facility].Luna SuarezDaekDictated: 10/05/2017 #[id number]: 10/05/2017 #[id number]: Yovanny Pollard D.O.Ubaldo Suarez M.D*Rock Dunbar M.D. [facility] Comment on above: Result Comment: Elec tronically Signed By: Daniela LEIJA, [facility], Ubaldo V\.br\Date and Time Signed: 10/05/17 09:09 EDT Discharge Note-Nursingon Discharge Note-Nursing discharge instructions reciewed with patient, who verbalized understanding and denied any questions. two prescriptions given to patient, and off work excuse also given to patient. tele removed. 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 [facility] ED Clinical Summaryon 2017 ED Clinical Summary [place] [address] ED Clinical SummaryPerson Information Name: Suzette RIOS/[facility] Age: 37 Years : 1980 12:00 AM Sex: Female Language:Azeri PCP: ROCK DUNBAR MD Marital Status: Phone: [phone] Visit Id: Visit Reason:Dizziness; Chest pain; CHEST PAIN Speciality: Acuity: 2 Enc Type: Observation Med Service: Medical Arrival:10/04/2017 9:16 PM Discharge: LOS: 000 04:59 Checkin:10/04/2017 9:16 PM Checkout: 10/05/2017 2:15 AM Dispo Type: Admitted as IP to this [facility] EVENTS:Event Name Event Status Request Date/Time [...] AM Patient Care Request 10/05/2017 1:54 AM ADDRESS:[address] [place] [address] [address] [facility] [phone] [facility] DOC NOTES: MEDICAL INFORMATION: Prescriptions Given:PATIENT EDUCATION INFORMATION: Instructions: Follow up:DIAGNOSIS:1:Chest pain; 2:Cardiomyopathy [facility] ED Note-Physicianon 10-06-19 ED Note-Physician Basic Information Ti me Seen: Jada Echols DO 10/04/2017 21:41Chief Complaint Pt c/o left anterior chest pain through to the back since 7pm. Associated with SOB & dizziness, nausea, no diaphoresis. ASA 162mg PO @ 8pm. Pt states hx of CHF & Cardiomyopathy - has Pacemaker/AICD. Sees Dr. Sofia @ [facility].History of Present Illness Pt is a 37 -year-old female who presents with a sharp left sided chest pain that radiates into the back and also has lightheadedness, dizziness, and nausea. 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 Electronic ventricular pacemaker, 74 bpm. [facility] Comment on above: Result Comment: Elec tronically Signed By: Rena Raman\.br\Electronically Co-Signed By: Jada Echols DO\.br\Date and Time Co-Signed: 10/05/17 01:27 EDT ED Patient Summaryon 018 ED Patient Summary (Inserted Image. Lolis ble to display) [place] [address] Patient Discharge Instructions Person Information Name: CARITO RIOS Age: 37 Years Date: 10/04/2017 9:16 PMDischarge Diagnosis: 1:Chest pain; 2:Cardiomyopathy Primary Care Physician: ROCK DUNBAR MD Provider InformationPrimary Provider: Jada Echols Supervisor Scenic Arts:None The exam and treatment you received in the Emergency Department were for an urgent problem and are not intended as complete care. It is important that you follow up with a doctor, nurse practitioner, or physician?s field administrative assistant for ongoing care. If your symptoms [...] opioids can be used to help relieve eqrbhikp-wo-kjiork pain and are often prescribed following a [...] be struggling with addiction, tell your health palliative care nurse and ask for guidance or call [facility] National Helpline at 0-037-928-DCSD. w Source: US Department of Health and Human Services/Center for Disease Control & Prevention [facility] Medications Given:Medication Dose Route Sodium [...] Information:Comment: Pharmacy Information: Thank you for choosing [facility] Patient Education Materials: TOVA Dinh MACKENZIE , have received the following patient education materials/instructions and have verbalized understanding: Patient Education Materials: Follow-up Instructions: Prescriptions: Patient Signature Clinician/Nurse Signature Date 10/05/17 02:15:52 [facility] Hep Func Panelon 10-05-2017 BILIRUBIN.NON-GLUC URONIDATED:MSCNC:P T:SER/PLAS:QN: UTC Abnormal 0.1-0.9 [facility] Comment on above: Result Comment: Resu lt verified by Discern Rule. Performed result UTC (Unable to Calculate) was sent as an Alpha code due the inability to calculate a valid numeric value. Performed By: #### 2 554434, 7029644, 97523701, 9905606, 7431358, 78137722, 1909945, 5741893, 31001070, 64681280 ####[facility] [address] [place] [address] Albumin mass conc 1.4 g/dL Normal 1.1-2.2 [facility] Comment on above: Performed By: #### 2 032207, 5858332, 05446158, 5052411, 2507195, 53799094, 4236196, 1482087, 95192958, 99819220 ####[facility] [address] [place] [address] Albumin mass conc 3.8 g/dL Normal 3.3-5.0 [facility] Comment on above: Performed By: #### 2 477891, 2581177, 35456410, 0030918, 6736531, 17415339, 3241587, 3773919, 60727835, 96880245 ####[facility] [address] [place] [address] ALP enzyme act/vol 62 Int._Unit/L Normal 21-98 [facility] Comment on above: Performed By: #### 2 067399, 0193886, 49961540, 1900057, 5655465, 58402403, 8737495, 2880411, 88261086, 25995846 ####[facility] [address] [place] [address] ALT No additional P-5'-P enzyme act/vol 9 Int._Unit/L Normal 6-46 [facility] Comment on above: Performed By: #### 2 492588, 2309140, 66259189, 5287726, 4833015, 63766734, 0500007, 3363113, 36449909, 77181383 ####[facility] [address] [place] [address] AST enzyme act/vol 21 Int._Unit/L Normal 5-43 [facility] Comment on above: Performed By: #### 2 611436, 2883342, 83892985, 2066596, 7731452, 45074950, 8627925, 5862402, 42082321, 97749853 ####[facility] [address] [place] [address] Bilirubin mass conc 0.5 mg/dL Normal 0.0-1.1 [facility] Comment on above: Performed By: #### 2 271713, 6842392, 27509962, 8271291, 8695768, 22723063, 2048072, 5437389, 36647143, 69965660 ####[facility] [address] [place] [address] Bilirubin.direct mass conc mg/dL Normal 0.1-0.4 [facility] Comment on above: Performed By: #### 2 427304, 4042603, 53712541, 5446417, 2930639, 34460918, 2231015, 7188435, 87116917, 14112976 ####[facility] [address] [place] [address] Globulin Calculated mass conc (S) 2.7 g/dL Normal 1.4-4.0 [facility] Comment on above: Performed By: #### 2 532307, 8881140, 06025187, 1859930, 3820179, 74606383, 9195784, 5642494, 21804903, 94739598 ####[facility] [address] [place] [address] Protein mass conc 6.5 g/dL Normal 6.0-7.8 [facility] Comment on above: Performed By: #### 2 441944, 7798853, 83889997, 4789382, 0261698, 90703233, 8257254, 5510526, 31060103, 44181773 ####[facility] [address] [place] [address] History and Physicalon 10-05 History and Physical Chief Complaint Pt c/o left anterior chest pain through to the back since 7pm. Associated with SOB & dizziness, nausea, no diaphoresis. ASA 162mg PO @ 8pm. Pt states hx of CHF & Cardiomyopathy - has Pacemaker/AICD. Sees Dr. Sofia @ [facility].History of Present Illness Patient is a pleasant 37-year-old white female with a past medical history of viral cardiomyopathy that was diagnosed in 2008 at the [facility] . Patient states she had a cardiac [...] on Cozaar. Patient 4 years ago at [facility] epigastric sleeve placed and after this had [...] 21:40:00) Lymph Auto: 19.5 % (10/04/17 21:40:00) Imperial Auto: 7.8 % (10/04/17 21:40:00) Eos Auto: 1.9 % (10/04/17 21:40:00) Basophil Auto: 0.9 % (10/04/17 21:40:00) Neutro Absolute: 3.6 E9/L (10/04/17 21:40:00) Lymph Absolute: 1 E9/L (10/04/17 21:40:00) Imperial Absolute: 0.4 E9/L (10/04/17 21:40:00) Eos Absolute: [...] and is followed by cardiology from [facility]. She is no longer on lisinopril due [...] apnea: Mother. Stroke: Mother and Father. [facility] Comment on above: Result Comment: Elec tronically Signed By: Yovanny Pollard DO\.mando\Date and Time Signed: 10/05/17 04:28 EDT Inpatient Clinical Summaryon 10-05-2017 Inpatient Clinical Summary [place] [address] Clinical Summary Person Information:Name: CARITO RIOS Age: 37 Years : 1980 12:00 AM Sex: Female PCP: ROCK DUNBAR MD Marital Status: Phone: [phone] Race:White Ethnicity:Non- or Language:Azeri Visit Id: Visit Reason:Dizziness; Chest pain; CHEST PAIN Speciality: Acuity: 2 Enc Type: Observation Med Service: Medical Arrival:10/04/2017 9:16 PM Discharge: Dispo Type: Admitted as IP to this Hosp Address:[address] [place] [address] [address] [facility] [id number] Provider Notes: Diagnosis:1:Chest pain; 2:Dizzy spells; 3:Nausea; [...] Yovanny Pollard DO AConsulting Physician: Aguilar Pizano MDAsp[facility] Hospitalrahul Physician: Follow up:With: Address: When: Aguilar Madeline [address] [place] [address] Business (1) Within 7 to 10 days With: Address: When: follow up with your block trimmer at [facility] Within 1 week With: Address: When: ROCK DUNBAR [address] [place] [address] Business (1) Within 3 to 5 days Patient Education Information: pantoprazole 40 mg Oral EC Tab [facility] Inpatient Patient Summaryon 10-05-2017 Inpatient Patient Summary [address] [address] Patient Discharge Instructions PERSON INFORMATION Name: CARITO RIOS Date of : 1980 12:00 AM Current Date: 10/05/17 17:00:22 PHYSICIANS Admitting Physician: Yovanny Pollard DO [facility] Care Physician: ROCK DUNBAR MDKendrick Comment: Discharge [...] results: NoneFollow up:With: Address: When: Cristosusi Goodman [address] [place] [address] [place] [address] Business (1) Within 7 to 10 days With: Address: When: follow up with your block trimmer at [facility] Within 1 week With: Address: When: ROCK DUNBAR [address] [place] [address] [place] [address] Business (1) Within 3 to 5 days [...] 1 Tabs By Mouth every day.Pharmacy Information: [facility] Navya comment: PATIENT EDUCATION INFORMATIONInstructions: Medication Leaflets:pantoprazole [...] may report side effects to FDA at 0-475-KQI-4206.What other drugs will affect pantoprazole?Tell your doctor about all your other medicines. Some may interact with pantoprazole, especially:?? digoxin;? methotrexate; or? a diuretic or 'water pill.'This list is not complete. Other drugs may affect pantoprazole, including prescription and pdhf-mll-gqklcxe medicines, vitamins, and herbal products. Not all possible drug interactions are listed here.Where can I get more information?Your pharmacist can provide more information about pantoprazole.Remember, keep this and all other medicines out of the reach of children, never share your medicines with others, and use this medication only for the indication prescribed.Every effort has been made to ensure that the information provided by [employer] ('[employer]') is accurate, up-to-date, and complete, but no guarantee is made to that effect. Drug information contained herein may be time sensitive. [employer] information has been compiled for use by healthcare practitioners and consumers in the [place] and therefore [employer] does not warrant that uses outside of the [place] are appropriate, unless specifically indicated otherwise. [employer] drug information does not endorse drugs, diagnose patients or recommend therapy. [employer] drug information is an informational resource designed [...] effective or appropriate for any given patient. [employer] does not assume any responsibility for any aspect of healthcare administered with the aid of information [facility] provides. The information contained herein is not intended to cover all possible uses, directions, precautions, warnings, drug interactions, allergic reactions, or adverse effects. If you have questions about the drugs you are taking, check with your doctor, nurse or pharmacist. Copyright 1776-3357 [employer] Version: 18.01. Revision Date: 08/05/2017. Thank you for choosing [facility] Interdisciplinary Note - Gustavo e Manageron 10-05-2017 Interdisciplinary Note - Mental Health Orderly Rounding with Eugenia Garvey. White board updated, no family present. Pt awake, alert, laying in bed talking with the doctor. Pt feeling sore and tired. 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 Pt discussing how she felt and why she came here. Doctor discussed lab's. Pt understands plan is await [facility], GI recommendations, await test results, possible d/c today if ok. PCP is Bettina. Pt would not like [facility] to update family, she is talking with them. [facility] Lipid Panelon 10-05-2017 Cholesterol in HDL mass conc 44 mg/dL Invalid Interpretation Code [facility] Comment on above: Result Comment: HDL > or equal to 60 mg/dL: Low cardiovascular riskHDL < 40 mg/dL : High cardiovascular risk Performed By: #### 2 737668, 9912834, 62234470, 2468073, 7905938, 88096455, 5740070, 7440321, 73967082, 11640752 ####[facility] [place] [address] Cholesterol in LDL mass conc 42 mg/dL Normal <=129 [facility] Comment on above: Performed By: #### 2 036178, 9293784, 76122868, 4149217, 5733863, 66148138, 6575683, 3502045, 73399515, 24985975 ####[facility] [address] [place] [address] Cholesterol in VLDL mass conc 10 mg/dL Normal 7-40 [facility] Comment on above: Performed By: #### 2 937799, 9365078, 40928462, 8528632, 5697661, 86366327, 7282882, 3013188, 53719490, 92728000 ####[facility] [address] [place] [address] Cholesterol mass conc 100 mg/dL Low 120-200 [facility] Comment on above: Performed By: #### 2 188712, 1862137, 89750323, 3632872, 7013324, 84222942, 1767862, 4790518, 14958373, 10905901 ####[facility] [address] [place] [address] Triglyceride mass conc 51 mg/dL Normal <=149 [facility] Comment on above: Performed By: #### 2 482078, 3692124, 83020987, 8068138, 7405420, 63221799, 0586160, 7576403, 38326814, 44927383 ####[facility] [address] [place] [address] Magnesiumon 10-05-2017 Magnesium mass conc 1.9 mg/dL Normal 1.3-2.4 [facility] Comment on above: Performed By: #### 2 380226, 8479584, 55400973, 6164952, 8026339, 46051251, 6467900, 1200692, 54885548, 92126622 ####[facility] [address] [place] [address] Main OR PACU I Recordon 09-19 Main OR PACU I Record PACU Phase I Document Type FT Summary Primary Physician: Aguilar Pizano MD Finalized Date/Time: 10/05/17 16:01:16 Pt. Name: TOVA CARITOANGELO Nolan/Sex: 1980 Female Med Rec #: [id number] Physician: Jada Echols DO Financial #: [id number] Pt. Type: O Room/Bed: [place] [address] Admit/Disch: 10/04/17 21:16:00 - Institution: Case Times [...] By: Shabana Walker RN 10/05/17 16:01 [facility] Main OR Preoperative Recordo n 10-05-2017 Main OR Preoperative Record Holding Area Document Type FT Summary Primary Physician: Aguilar Pizano MD Finalized Date/Time: 10/05/17 14:27:28 Pt. Name: CARITO RIOS./Sex: 1980 Female Med Rec #: [id number] Physician: Jada Echols DO Financial #: [id number] Pt. Type: O Room/Bed: [place] [address] Admit/Disch: 10/04/17 21:16:00 - Institution: Case Times [...] RN, M.EdAkil, Cheryl ARCINIEGA 10/05/17 14:27 [facility] PT & PTTon 10-05-2017 aPTT Coag time (Bld) 36.4 second(s) Normal 25.1-36.5 [facility] Comment on above: Result Comment: Hepa rin therapeutic range (represented by Anti-Factor Xa activity of 0.2 - 0.4 U/mL) corresponds to PTT of 53.9 - 87.4 sec. Performed By: #### 2 146005, 7747120, 19083110, 9429952, 6296586, 80971217, 8452020, 8486570, 83967450, 69846482 ####[facility] [address] [place] [address] INR Coag RelTime (PPP) 1.0 {INR} Invalid Interpretation Code [facility] Comment on above: Result Comment: INR results are specifically intended to assess patients stabilized on long-term Anticoagulation therapy suggested INR?s ?Less Intensive Anticoagulation? 2.0 ? 3.0Conventional Range 3.0 ? 4.5 Performed By: #### 2 693380, 5199028, 01113610, 3800923, 2912355, 53769414, 3105762, 4105438, 24116908, 88182573 ####[facility] [address] [place] [address] Prothrombin time (PT) Coag time (PPP) 11.5 second(s) Normal 10.2-12.9 [facility] Comment on above: Performed By: #### 2 246089, 7548840, 36235168, 3132733, 0320543, 76781761, 5873240, 0524765, 90091035, 11636428 ####[facility] [address] [place] [address] Progress Note-Physicianon Protein mass conc Patient: Trudy [...] Problem list: All ProblemsCardiomyopathy / SNOMED CT 246276562 / ConfirmedCHF - Congestive heart failure / SNOMED CT 462571739 / ConfirmedPulmonary embolism / SNOMED CT 90419520 / ConfirmedSmoker / SNOMED CT 966779523 / ConfirmedAdded secondary to documentation in Social History. Histories Past Medical History: ActivePulmonary embolism (36999305): Onset in 2008 at 28 years.CHF - Congestive heart failure (663870424)Cardiomyopathy (673280140) Family History: DementiaFatherAsthmaMotherSiste rHypertensionMotherFatherClotti ng disorderFatherDiabetes mellitus type 2MotherStrokeFatherMotherAcute myocardial infarctionMotherHyperlipidemiaM otherRenal failure syndromeMotherSleep apneaMotherDepressionMotherSist er Procedure history: Implantation of automatic cardioverter/defibrillator, total system (AICD) (03724829) in 2008 at 28 Years.Cardiac pacemaker (97688245) in 2009 at 28 Years.Cholecystectomy (42861135).Gastric bypass (3125657865).Abdominal hysterectomy (996867644). delivery (5082148205).Comments:10/05/2017 02:40 - Claudia Lu RN L3hand surgery.Comments:10/05/2017 02:42 - Claudia Lu RN L2 surgeries left handExcision of tonsil (414680357). Social History Social & Psychosocial YtrinwTdnfsco75/16/2018 Risk Assessment: Denies Alcohol Use10/04/2017 Use: Current Comment: denies - 10/04/2017 22:00 - Isabel Bird RN RSubstance Abuse10/04/2017 Risk Assessment: Denies Substance LybnqTfducoi13/16/2018 Tobacco Use: 10 or more cigarettes (06/24/1510/04/2017 [...] 10/05/2017 02:11 EDT Height/Length Measured 174 cm [place] Body Weight Calculated 65.059 kg BSA Measured [...] results Radiology results ECG interpretation Condition Plan [employer] Anesthesi[employer] (ASA) physical status classification: Class III. Anesthetic Preoperative Plan Anesthesia: Monitored anesthesia care. Anesthetic plan, risks, benefits, and alternatives discussed with the patient and/or family. Risks discussed: nausea, vomiting, headache, sore throat, dental injury, serious complications. Patient verbalized understanding. Communication: face to face with (patient 5 minutes, Pt. educated on the importance of smoking cessation.). [facility] Comment on above: Result Comment: Elec [...] Problem list: All ProblemsCardiomyopathy / SNOMED CT 169362558 / ConfirmedCHF - Congestive heart failure / SNOMED CT 272319277 / ConfirmedPulmonary embolism / SNOMED CT 33479990 / ConfirmedSmoker / SNOMED CT 873595383 / ConfirmedAdded secondary to documentation in Social [...] Plan Transfer/ Discharge: Condition stable. [facility] Comment on above: Result Comment: Elec tronically Signed By: Shaquille Masters DO, Robi Lindsey\.mando\Date and Time Signed: 10/05/17 15:33 EDT Sed Rate Automatedon 018 ESR Velocity (Bld) 13 mm/h Normal 0-34 [facility] Comment on above: Performed By: #### 2 539562, 9097927, 83210172, 5360046, 2188267, 69699833, 5024801, 2651180, 23391965, 65540293 ####[facility] [address] [place] [address] TSH With T4fr Reflexon 10-05 Thyrotropin Qn 3.23 mcIU/mL Normal 0.34-5.60 [facility] Comment on above: Performed By: #### 2 591822, 4176724, 28445279, 3881620, 8474806, 42850799, 1603580, 0668996, 22294795, 24331028 ####[facility] [address] [place] [address] eGFRon 10-05-2017 GFR/1.73 sq M predicted among blacks MDRD vol rate/area (S/P/Bld) mL/min/{1.73_m2} Normal >=59 [facility] Comment on above: Order Comment: Order added by Discern Expert. Result Comment: eGFR is race adjusted. AA=. Performed By: #### 2 598397, 4515069, 77822248, 1950667, 9502369, 36042568, 9494111, 2157669, 38016220, 80524416 ####[facility] [address] [place] [address] GFR/1.73 sq M predicted among non-blacks MDRD vol rate/area (S/P/Bld) mL/min/{1.73_m2} Normal >=59 [facility] Comment on above: Order Comment: Order added by Discern Expert. Result Comment: Stage Driver nya kidney disease could be indicated at eGFR's of less than 60 mL/min/1.73m2. Kidney failure is indicated at less than 15 mL/min/1.73m2. Performed By: #### 2 907689, 3262054, 67079805, 1062440, 8628869, 77248713, 7323651, 4759188, 07641221, 75446971 ####[facility] [address] [place] [address] GFR/1.73 sq M predicted among blacks MDRD vol rate/area (S/P/Bld) mL/min/{1.73_m2} Normal >=59 [facility] Comment on above: Order Comment: Order added by Discern Expert. Result Comment: eGFR is race adjusted. AA=. Performed By: #### 2 605734, 6376939, 13677720, 3252171, 0211337, 65381979, 1473753, 7496578, 50558310, 07977000 ####[facility] [address] [place] [address] GFR/1.73 sq M predicted among non-blacks MDRD vol rate/area (S/P/Bld) mL/min/{1.73_m2} Normal >=59 [facility] Comment on above: Order Comment: Order added by Discern Expert. Result Comment: Stage Driver nya kidney disease could be indicated at eGFR's of less than 60 mL/min/1.73m2. Kidney failure is indicated at less than 15 mL/min/1.73m2. Performed By: #### 2 892352, 1483392, 24156737, 9710971, 5543224, 72784776, 8856124, 3375127, 32369427, 54138156 ####[facility] [address] [place] [address] BMPon 10-04-2017 Anion gap 3 molar conc 10 mmol/L Normal 12-04 [facility] Comment on above: Performed By: #### 2 957165, 5707471, 75281139, 4732460, 8935040, 75674310, 4133895, 9543571, 41501317, 43115607 ####[facility] [address] [place] [address] Calcium mass conc 8.5 mg/dL Low 8.9-11.1 [facility] Comment on above: Performed By: #### 2 152271, 2540988, 40456087, 7160344, 8591166, 36540251, 4795922, 4017066, 69259691, 63261411 ####[facility] [address] [place] [address] Chloride molar conc 106 mmol/L Normal 101-111 [facility] Comment on above: Performed By: #### 2 112798, 1006757, 94623906, 2702510, 6733981, 53052582, 6815796, 5930821, 27748128, 33378400 ####[facility] [address] [place] [address] CO2 molar conc 24 mmol/L Normal 21-31 [facility] Comment on above: Performed By: #### 2 672114, 5875663, 33018460, 9490980, 0386787, 88936014, 1550101, 4472859, 64247112, 95936433 ####[facility] [address] [place] [address] Glucose mass conc 99 mg/dL Normal 55-199 [facility] Comment on above: Result Comment: If t his glucose result represents a fasting glucose, interpretation should refer to the following reference range: 55-99 mg/dL Performed By: #### 2 403328, 1620671, 61025608, 7488047, 8720761, 22219049, 6210637, 3598108, 94668908, 96740388 ####[facility] [address] [place] [address] Potassium molar conc 3.3 mmol/L Low 3.5-5.3 [facility] Comment on above: Performed By: #### 2 961416, 8447494, 79916534, 7328254, 2217883, 56174504, 3486267, 6371568, 41786951, 72893398 ####[facility] [place] [address] Sodium molar conc 137 mmol/L Normal 135-145 [facility] Comment on above: Performed By: #### 2 510746, 8640276, 14112262, 4575247, 5285798, 80909687, 1084189, 3374859, 09959268, 80564266 ####[facility] [address] [place] [address] Lipase Levelon 10-04-2017 Lipase enzyme act/vol 42 unit/L Normal 13-58 [facility] Comment on above: Performed By: #### 2 160646, 4938366, 39272251, 2027299, 8094657, 69946033, 5725494, 2755912, 29623038, 10270958 ####[facility] [address] [place] [address] Vital Signs Date Time Vital Sign Value Performing Clinician Facility 01-01-2023 16:11-0400 SaO2% (BldA) [Mass fraction] 100 % DARLING MARTINEZ [facility] Comment on above: Order Comment: Specimen Type: ARTERIAL B LOOD SPECIMENOrdering Facility: [facility] Address: [address] [place] [address] Performed By: #### A LLBG ####[facility] [id number] [place] [address] [place] 12-11-2022 15:17040 Body height 175.3 cm Neto Demarco MD Work Phone: [facility] [facility] 12-11-2022 15:17040 Body weight 89.81 kg Neto Demarco MD Work Phone: [facility] 12-11-2022 15:17040 Diastolic blood pressure 70 mm[Hg] Neto Obrien Work Phone: [facility] 12-11-2022 15:17040 Heart rate 60 /min Neto Demarco MD Work Phone: [facility] 12-11-2022 15:170400 Systolic blood pressure 111 mm[Hg] Neto Demarco MD Work Phone: [facility] Encounters Encounter Date Encounter Type Care Provider Facility Start: 02-13-2025 ambulatory [facility] Start: 02-13-2025 Encounter for preprocedural cardiovascular examination [facility] Start: 11-20-2024 ambulatory [facility] Start: 08-15-2024 ambulatory [facility] Start: 03-08-2024 ambulatory [facility] Start: 09-08-2023 End: 09-08-2023 ambulatory ROCK DUNBAR Not Available Start: 01-01-2023 End: 01-02-2023 ambulatory DARLING MARTINEZ Facility:[facility] Start: 12-31-2022 ambulatory Darling holland MD Work Phone: Cardiology Comment on above: Patient Education (E PS-ICD Leade Extract / Reimplant) Start: 12-30-2022 End: 12-30-2022 ambulatory DARLING MARTINEZ Facility:[facility] Start: 12-30-2022 Admission to same da y surgery center DARLING MARTINEZ [facility] Start: 12-30-2022 End: 12-30-2022 ambulatory DARLING MARTINEZ Facility:[facility] Start: 12-30-2022 End: 12-30-2022 Admission to same day surgery center Anesthesia Clearance Work Phone: [facility] Work Phone: Start: 12-30-2022 End: 12-30-2022 Patient encounter procedure Anesthesia Clearance Work Phone: Cardiothoracic Comment on above: Encounter for preope rative anesthesiology assessment for cardiac surgery (Primary Dx) Start: 12-30-2022 End: 12-31-2022 ambulatory ROCK DUNBAR Facility:[facility] Start: 12-24-2022 Telephone encounter Neto resendiz MD Work Phone: Cardiology Comment on above: Received Outside [employer] Records Start: 12-23-2022 Telephone encounter Neto resendiz MD Work Phone: Cardiology Comment on above: Reschedule (OR 79 ca se) MONITOR (ALARM) Start: 12-14-2022 Telephone encounter Neto resendiz MD Work Phone: Cardiology Comment on above: Schedule Surgery (EP S- Lead Extraction and Reimplantation ) Start: 12-11-2022 End: 12-11-2022 ambulatory NETO DEMARCO Facility:[facility] Start: 12-11-2022 End: 12-11-2022 ambulatory DARLING MARTINEZ Facility:[facility] Start: 12-11-2022 Follow-up encounter Neto resendiz MD Work Phone: [facility] Start: 12-11-2022 End: 12-11-2022 Patient encounter procedure Neto Demarco MD Work Phone: [facility] Department Comment on above: ICD (implantable car dioverter-defibrillator) in place (Primary Dx); Cardiac resynchronization therapy defibrillator (SPECIAL TESTER-D) in place; Chronic systolic heart failure (HCC); Non-ischemic cardiomyopathy (HCC); Failure of implantable cardioverter-defibrillator (ICD) lead, initial encounter Start: 11-24-2022 Telephone encounter Neto resendiz MD Work Phone: Cardiology Comment on above: Received Outside [facility] Records (Referral & MR) Start: 09-24-2022 End: 09-24-[address] AMADOR ALICEA Facility:[facility] Start: 09-18-2022 Encounter for other preprocedural examination JASS JUNE [facility] Start: 09-16-2022 End: 09-17-2022 ambulatory JASS JUNE Facility:[facility] Start: 09-16-2022 End: 09-17-2022 Encounter for other preprocedural examination JASS JUNE Facility:[facility] Start: 08-31-2022 End: 09-01-2022 ambulatory EVELYN CALDWELL Facility:[facility] Start: 08-28-2022 End: 08-28-[address] EUFEMIA Barnard Facility:[facility] Start: 08-05-2022 End: 08-05-[address] FAZAL PARKER Facility:[facility] Start: 02-17-2022 Encounter for genera l adult medical examination without abnormal findings DR ROCK DUNBAR [facility] Start: 02-16-2022 End: 02-17-[address] [...] 04-30-2018 Patient encounter procedure PROVIDER UNKNOWN Facility:[facility] Start: 03-31-2018 End: 04-01-2018 Patient encounter procedure KADE SOFIA Facility:[facility] Start: 02-06-2018 End: 02-08-2018 Patient encounter ROCK~[id number] UNKNOWN BETTINA Facility:[facility] Start: 01-06-2018 End: 01-06-2018 Emergency department patient visit ROCK~[id number] UNKNOWN BETTINA Facility:[facility] Start: 11-16-2017 End: 11-17-2017 Patient encounter Aguilar Goodman Facility:[facility] Start: 10-04-2017 End: 10-05-2017 Patient encounter Makayla Sage Facility:[facility] Procedures Date Procedure Procedure Detail Performing Clinician Start: 12-30-2022 Antibody screen DARLING MARTINEZ Comment on above: Order Comment: Speci men Type: BLOOD SPECIMENOrdering Facility: [facility] Address: [address] [place] [id number] Performed By: #### T [id number] ####CC MAIN BLOOD BANKCLIA [id number] [place] [id number] [place] Start: 12-11-2022 ICD CLINIC CHECK Neto Demarco MD Work Phone: Plan of Treatment Date Care Activity Detail Author Start: 02-19-2023 Influenza vaccination [facility] Start: 12-29-2022 End: 02-28-2023 Basic metabolic 2000 panel - Serum or Plasma BASIC METABOLIC PNL Lab Routine Failure of implantable cardioverter-defibrillator (ICD) lead, initial encounter Expected: 12/29/2022, Expires: 02/28/2023 [facility] Work Phone: Comment on above: Expected: 12/29/2022 , Expires: 02/28/2023 Start: 12-29-2022 End: 02-28-2023 CBC panel - Blood by Automated count CBC Lab Routine Failure of implantable cardioverter-defibrillator (ICD) lead, initial encounter Expected: 12/29/2022, Expires: 02/28/2023 [facility] Work Phone: Comment on above: Expected: 12/29/2022 , Expires: 02/28/2023 Start: 12-29-2022 End: 02-28-2023 CONFIRM BLOOD TYPE CONFIRM BLOOD TYPE Blood Bank Routine Failure of implantable cardioverter-defibrillator (ICD) lead, initial encounter Expected: 12/29/2022, Expires: 02/28/2023 [facility] Work Phone: Comment on above: Expected: 12/29/2022 , Expires: 02/28/2023 Start: 12-29-2022 Radiologic exam ches t 2 views XR CHEST 2V FRONTAL/LAT Radiology Routine Failure of implantable cardioverter-defibrillator (ICD) lead, initial encounter Expected: 12/29/2022 [facility] Work Phone: Comment on above: Expected: 12/29/2022 Start: 12-29-2022 End: 02-28-2023 TYPE AND SCREEN,30 DAY TYPE AND SCREEN,30 DAY Blood Bank Routine Failure of implantable cardioverter-defibrillator (ICD) lead, initial encounter Expected: 12/29/2022, Expires: 02/28/2023 [facility] Work Phone: Comment on above: Expected: 12/29/2022 , Expires: 02/28/2023 Start: 2022 Mammography MAMMOGRAM [facility] Start: 06-21-2022 DEPRESSION ASSESSMENT DEPRESSION ASS ESSMENT [facility] Start: 2012 HPV TESTING HPV TESTING [facility] Start: 08-27-2003 PAP TESTING PAP TESTING [facility] Start: 2001 Urine microalbumin profile DTAP,TDAP,TD (1 - Tdap) [facility] Start: 2000 HEPATITIS C SCREENING HEPATITIS C SC REENING [facility] Start: 2000 HIV SCREENING HIV SCREENING [facility] Start: 1988 PNEUMOCOCCAL (1 - PCV) PNEUMOCOCCAL (1 - PCV) [facility] Start: 02-26-1983 COVID-19 VACCINE (#1) COVID-19 VACCI NE (#1) [facility] Start: 1982 HEPATITIS B (1 of 3 - 3-dose series) HEPATITIS B (1 of 3 - 3-dose series) [facility] LIFEVEST LIFEVEST ECG Rou xavier ICD (implantable cardioverter-defibrillator ) in place Cardiac resynchronization therapy defibrillator (SPECIAL TESTER-D) in place Chronic systolic heart failure (HCC) Non-ischemic cardiomyopathy (HCC) Failure of implantable cardioverter-defibrillator (ICD) lead, initial encounter Ordered: 12/11/2022 [facility] Work Phone: Comment on above: Ordered: 12/11/2022 End: 01-10-2024 Radiologic exam chest 2 views XR CHEST 2V FRONTAL/LAT Radiology Routine ICD (implantable cardioverter-defibrillator ) in place Cardiac resynchronization therapy defibrillator (SPECIAL TESTER-D) in place Chronic systolic heart failure (HCC) Non-ischemic cardiomyopathy (HCC) Failure of implantable cardioverter-defibrillator (ICD) lead, initial encounter 1 Occurrences starting 12/11/2022 until 01/10/2024 [facility] Work Phone: Comment on above: 1 Occurrences starti ng 12/11/2022 until 01/10/2024 WEARABLE CARDIAC DEFIBRILLATOR (LIFEVEST / ASSURE) WEARABLE CARDIAC DEFIBRILLATOR (LIFEVEST / ASSURE) ECG Routine ICD (implantable cardioverter-defibrillator ) in place Cardiac resynchronization therapy defibrillator (SPECIAL TESTER-D) in place Chronic systolic heart failure (HCC) Non-ischemic cardiomyopathy (HCC) Failure of implantable cardioverter-defibrillator (ICD) lead, initial encounter Ordered: 12/11/2022 [facility] Work Phone: Comment on above: Ordered: 12/11/2022 [facility] Payers Date Payer Category Payer Medicaid [id number] 1980 Unknown [id number] 2.16.8 [id number] 1982 Unknown [id number] 2.16.8 [id number] 1982 Unknown [id number] 2.16.84 [id number] 1982 Unknown [id number] 2.16.84 [id number] 1982 Unknown [id number] 2.16.84 [id number] 1982 Unknown [id number] 2.16.84 0.1.142637.3.579.2.593 1982 Unknown [id number] 2.16.84 [id number] 1982 Unknown [id number] 2.16.84 [id number] 1982 Unknown [id number] 2.16.84 0.1.892855.3.579.2.593 1982 Unknown [id number] 2.16.84 0.1.281869.3.579.2.593 1982 Unknown [id number] 2.16.84 0.1.631312.3.579.2.593 1982 Unknown [id number] 2.16.84 0.1.955296.3.579.2.593 1982 Unknown [id number] 2.16.84 0.1.607066.3.579.2.593 1982 Unknown [id number] 2.16.84 0.1.991964.3.579.2.593 1982 Unknown [id number] 2.16.84 [id number] 1957 Self-pay [id number] 1957 Unknown [id number] Social History Date Type Detail Facility Tobacco smoking stat [facility] Tobacco smoking consumption unknown [facility] Start: 1980 Sex Assigned At Not on file [facility] Start: 12-11-2022 Tobacco smoking stat [facility] Smokes tobacco daily [facility] History of tobacco use Cigarette Smoker [facility] Start: 12-11-2022 End: 12-30-2022 Cigarettes smoked current (pack per day) - Reported 1 [facility] Start: 12-11-2022 Tobacco use and exposure Smoke less tobacco non-user [facility] Start: 12-11-2022 Alcohol intake Ex-drinker (finding) [facility] Start: 1980 Sex Assigned At Female [facility] Start: 12-11-2022 End: 12-30-2022 Tobacco use panel [facility] National Score (1-10 0), lower number is lower risk 79 [facility] Start: 12-15-2022 Gender identity Identifies as female gender (finding) [facility] Start: 12-15-2022 Sexual orientation Choose not to dis close [facility] Clinical Notes 08-05-2022 to 01-02-2023 Laurel Flores RN - 12/31/2022 4:20 PM Ki Vicente MD - 12/30/2022 12:40 PM EDTTelephone Encounter - Sharon Tanner RN - 12/25/2022 9:07 AM EDTPatient Instructions Note Date & Type Note Facility 01-02-2023 Note HNO ID: [id number] Author: Daphney Perez RN Service: Nursing Author Type: Registered Nurse Type: Nursing Progress Note Filed: 01/02/2023 1:16 PM Note Text: Patient discharged. IV taken out and patient off tele. [facility] 01-02-2023 Note HNO ID: [id number] Author: Chandan Banuelos MD Service: Cardiovascular Medicine Author Type: Fellow Type: Progress Notes Filed: 01/02/2023 10:39 AM Note Text: [facility] ELECTROPHYSIOLOGY PROGRESS NOTE Carito Rios [id number] PRIMARY SERVICE: INTERVAL HISTORY - POD#1 from [...] female with history of NICM, HF, s/p SPECIAL TESTER-D (2008) with epicardial LV lead, s/p multiple generator changes (4) most recent generator change 09/21/2022, and depression. She presented to local ED 11/22/22 for device alarm and was found to have RV lead noise with oversensing. [place] to be likely due to ICD coil fracture. Now admitted for transvenous lead extraction of the RV lead. POD #1 RA/ICD lead extraction and re-implantation of new RA/ICD leads - Discharge today. - Groin suture removed Chandan Banuelos MD Electrophysiology Fellow PGY-VII P: [id number] January 02, 2023 8:22 AM [facility] 01-01-2023 Note HNO ID: [id number] Author: Aaron Mcknight MD Service: Cardiovascular Medicine Author Type: Fellow Type: Progress Notes Filed: 01/01/2023 7:15 PM Note Text: BRIEF PROCEDURE NOTE: Procedure: Transvenous lead extraction and implantation of two new leads (RA + RV) Date: January 01, 2023, 7:12 PM Primary Surgeon: Darling Martinez MD Mobile Architect: Aaron Mcknight MD Outcome: Successful Pocket: Left [...] right groin. Full report [facility] (Under Chart Review -> Cardiac ) Aaron Mcknight MD [facility] 01-01-2023 Note HNO ID: [id number] Author: Aby Romano APRN.DENTAL OFFICE MANAGER Service: ? Author Type: Nurse Service Desk Director Type: Anesthesia Procedure Notes Filed: 01/01/2023 2:41 PM Note Text: ANESTHESIOLOGY PROCEDURE NOTE Airway General Information Procedure Start Time/Medication Administration: 01/01/2023 1:29 PM Patient location during procedure: OR Timeout Performed Pre-procedure: timeout performed Consent Obtained: Yes Patient identity confirmed: arm band Staffing DENTAL OFFICE MANAGER: Aby Romano APRN.DENTAL OFFICE MANAGER Performed by: DENTAL OFFICE MANAGER Indications and Patient Condition Indications for airway [...] January 01, 2023 TIME: 2:40 PM CSN: [id number] [facility] 12-31-2022 Note HNO ID: [id number] Author: Laurel Flores RN Service: ? Author [...] discussed with Physician, nurse practitioner or Physician field administrative assistant upon discharge Instructions for transmitting EKG to Monitoring Center 3 month follow up instructions Contact number for information and questions Patient Evaluation: Verbalizes understanding Follow Up Plan: Follow up as directed by MD. Supplemental Material Given: Written Material Patient education regarding radiation exposure. Instructed By Laurel Flores RN. In Department of CARDIOLOGY. [facility] 12-31-2022 History of Presen t illness Narrative [...] discussed with Physician, nurse practitioner or Physician field administrative assistant upon discharge Instructions for transmitting EKG to Monitoring Center 3 month follow up instructions Contact number for information and questions Patient Evaluation: Verbalizes understanding Follow Up Plan: Follow up as directed by MD. Supplemental Material Given: Written Material Patient education regarding radiation exposure. Instructed By Laurel Flores RN. In Department of CARDIOLOGY. documented in this encounter [facility] 12-31-2022 Note Education (EPSMN) CARITO RIOS ([id number]) 1980 F Date Time Provider Department 12/31/22 [...] Encounter Status:Closed by LAUREL CHAVEZ on 12/31/22 [facility] 12-30-2022 Note HNO ID: [id number] Author: Ki Mancera MD Service: ? Author Type: Fellow Type: Progress Notes Filed: 12/30/2022 12:48 PM Note Text: Cardiothoracic Anesthesiology Preoperative Assessment Service Date: 12/30/2022 Service Time: 11:47 AM Primary Care Physician: Rock Dunbar Subjective Patient Entered Data: Scheduled procedure: Lead extraction Surgeon: Darling Martinez Scheduled date: 01/01/2023 HPI: Patient is a 42yoF w/ a hx of NICM and resultant HFrEF s/p SPECIAL TESTER-D in 2008 c/b by recent RV lead [...] Laterality Date PAST SURGICAL HISTORY OF 2008 SPECIAL TESTER-D PAST SURGICAL HISTORY OF multiple device surgeries [...] 2:12 PM I (more content not included)... [facility] 12-30-2022 Note HNO ID: [id number] Author: Shelly Gilmore RN Service: Nursing Author [...] DATE: December 30, 2022 TIME: 11:15 AM [facility] 12-30-2022 Note HNO ID: [id number] Author: Kathya Roque RT(R) Service: Radiology Author [...] RT Janice(R) December 30, 2022 11:46 AM [facility] 12-30-2022 Note HNO ID: [id number] Author: RT Joshua(R) Service: Radiology Author Type: [...] RT Joshua(R) December 30, 2022 9:57 AM [facility] 12-30-2022 History of Presen t illness Narrative Cardiothoracic Anesthesiology Preoperative Assessment Service Date: 12/30/2022 Service Time: 11:47 AM Primary Care Physician: Rock Dunbar Subjective Patient Entered Data: Scheduled procedure: Lead extraction Surgeon: Darling Martinez Scheduled date: 01/01/2023 HPI: Patient is a 42yoF w/ a hx of NICM and resultant HFrEF s/p SPECIAL TESTER-D in 2008 c/b by recent RV lead [...] Laterality Date PAST SURGICAL HISTORY OF 2008 SPECIAL TESTER-D PAST SURGICAL HISTORY OF multiple device surgeries [...] ABNORMAL ECG Confirmed by MD GREWAL TAMANNA ([id number]) on 12/14/2022 4:37:01 PM Assessment No problem-specific [...] and consent discussed: yes. Patient / Responsible Libertarian agrees to proceed: yes Patient / Surrogate agrees to blood products: Yes Instructions Given to Patient: Instructions located in the after visit summary. Patient given verbal and written preop instructions and voices comprehension and compliance. Signature: Ki Mancera MD Patient Name: Carito Rios Date: December 30, 2022 Time: 11:47 AM Pager/Contact #: documented in this encounter [facility] 12-25-[address] Demarco reviewed tracings from [employer]. Mostly noise/artifact. No changes prior to procedure next week. Left detailed message on patient VM. Sharon Tanner RN Outside medical records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
[2025-03-10 19:01] LABS: Hematocrit 38.9 % (36.0-48.0); Hemoglobin 14.1 g/dL (12.0-16.0); Immature Granulocytes Abs Auto 0.03 10^3/uL (0.00-0.03); Immature Granulocytes Pct Auto 0.6 % (0.0-0.5); Lymphocytes Absolute Auto 0.8 10^3/uL (1.2-3.8); Mean Corpuscular HGB Conc 36.2 g/dL (29.9-35.2); Mean Corpuscular Hemoglobin 31.4 pg (26.7-34.0); Mean Corpuscular Volume 86.6 fL (81.0-99.0); Platelet Count 180 10^3/uL (150-450); Red Blood Count 4.49 10^6/uL (4.20-5.40); White Blood Count 4.9 10^3/uL (4.0-11.0)
[2025-03-10 19:18] LABS: Anion Gap 14.1; Blood Urea Nitrogen 10.0 mg/dL (7.0-18.0); Calcium 8.8 mg/dL (8.5-10.1); Carbon Dioxide 22.8 mmol/L (21.0-32.0); Chloride 108 mmol/L (98-107); Estimated GFR (African America >60 (>=60 mL/min/1.73m^2); Estimated GFR (Non-African Ame >60 (>=60 mL/min/1.73m^2); Glucose 107 mg/dL (74-106); Potassium 3.9 mmol/L (3.5-5.1); Sodium 141 mmol/L (136-145)
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
== END 2025-03-10 21:18 | disposition home or self-care (01) ==
PROVIDERS: Physician Assistant; Emergency Provider Student in an Organized Health Care Education/Training Program; PCP Family Medicine
DX: Z45.02 Encounter for adjustment and management of automatic implantable cardiac defibrillator (principal); I42.0 Dilated cardiomyopathy; I50.9 Heart failure, unspecified; Z95.810 Presence of automatic (implantable) cardiac defibrillator; Z98.84 Bariatric surgery status; Z79.82 Long term (current) use of aspirin; F17.200 Nicotine dependence, unspecified, uncomplicated; F41.9 Anxiety disorder, unspecified; F32.A Depression, unspecified; T50.996A Underdosing of other drugs, medicaments and biological substances, initial encounter; Z91.148 Patient's other noncompliance with medication regimen for other reason; I11.0 Hypertensive heart disease with heart failure
CPT/HCPCS: 36415; 71045; 80048; 84484; 85025; 93005; 99285